=== PATIENT | female | born 1950 | race Caucasian/White ===

== ENCOUNTER → 2020-03-06 | Outpatient (BNVA) | payer OTHER, SELFPAY | PROVIDERS: PCP Emergency Medicine; Referring Provider Emergency Medicine; Visit Provider Nurse Practitioner | DX: K21.9 Gastro-esophageal reflux disease without esophagitis (principal); Z79.899 Other long term (current) drug therapy; Z79.84 Long term (current) use of oral hypoglycemic drugs; Z86.19 Personal history of other infectious and parasitic diseases | CPT/HCPCS: 99213 ==

== ENCOUNTER → 2020-03-15 13:08 | Outpatient (BNVA) | payer OTHER, SELFPAY | PROVIDERS: PCP Emergency Medicine; Visit Provider Surgery | DX: Z85.3 Personal history of malignant neoplasm of breast (principal) | CPT/HCPCS: 99214 ==

== ENCOUNTER 2020-05-22 12:38 | Outpatient (REF) | payer OTHER, SELFPAY ==
--- NOTE | 2020-05-22 12:43 | MM_ITS ---
EXAMINATION: MM SCREENING DIGITAL BREAST TOMOSYNTHESIS, BILATERAL CLINICAL INFORMATION: Screening. Asymptomatic. Prior right lumpectomy for breast cancer 2004. Family history breast cancer, sister. COMPARISON: Mammography: 04/12/2019, 01/26/2018, 01/22/2017, 12/24/2015, 12/20/2014, 11/14/2013, 11/08/2012 TECHNIQUE: Digital breast tomosynthesis is performed in both the craniocaudal and mediolateral oblique views along with computer-aided detection (CAD). Synthesized 2D images are generated from the tomosynthesis. Additional exaggerated right CC view is provided. FINDINGS: There are scattered areas of fibroglandular density (ACR BI-RADS breast composition Category b). Breast parenchymal pattern is similar to prior studies. Right breast post therapy changes are stable. There is mild reduced breast size and minor scarring and smooth skin thickening again seen. Neither breast shows interval mass or architectural abnormality, developing density, or abnormal calcifications. No significant changes. MM/MM tomosynthesis screening BI IMPRESSION: No mammographic evidence of malignancy. Chronic post therapy changes right breast. ASSESSMENT: BI-RADS 2: Benign RECOMMENDATION: Routine annual mammography screening. This patient's information was entered into a reminder system with a target due date for their next mammogram.
== END 2020-05-22 12:39 | disposition home or self-care (01) ==
LOC: HO.MAMMO 12:38
PROVIDERS: Visit Provider Surgery
DX: Z12.31 Encounter for screening mammogram for malignant neoplasm of breast (principal)
CPT/HCPCS: 77063; 77067

== ENCOUNTER → 2020-06-01 13:34 | Outpatient (BNVA) | payer OTHER, SELFPAY | PROVIDERS: PCP Emergency Medicine; Visit Provider Student in an Organized Health Care Education/Training Program | DX: Z13.89 Encounter for screening for other disorder (principal) | CPT/HCPCS: Q3014 ==

== ENCOUNTER 2020-08-30 11:34 | Outpatient (REF) | payer OTHER, SELFPAY ==
[2020-08-30 12:20] LABS: MANUAL DIFF FLAG NO
[2020-08-30 12:22] LABS: Basophils Absolute Auto 0.1 X10*3/uL (0.0-0.2); Basophils Percent Auto 0.7 % (0-2); Eosinophils Absolute Auto 0.2 X10*3/uL (0.0-0.4); Eosinophils Percent Auto 2.3 % (0-4); Hematocrit 35.1 % (37-47); Hemoglobin 11.4 g/dl (12.0-16.0); Imm Gran Abs Auto 0.02 X10*3/uL (0.00-0.03); Imm Gran Pct Auto 0.3 % (0.0-0.4); Lymphocytes Absolute Auto 2.1 X10*3/uL (1.2-4.9); Lymphocytes Percent Auto 28.8 % (20-40); Mean Corpuscular HGB Conc 32.5 g/dl (31.0-35.0); Mean Corpuscular Hemoglobin 29.2 pg (27.0-33.0); Mean Corpuscular Volume 89.8 fL (80-98); Mean Platelet Volume 10.1 fL (9.4-12.3); Monocytes Absolute Auto 0.6 X10*3/uL (0.1-1.2); Monocytes Percent Auto 8.3 % (2-11); Neutrophils Absolute Auto 4.4 X10*3/uL (2.0-8.3); Neutrophils Percent Auto 59.6 % (45-73); Platelet Count 241 X10*3/uL (160-400); Red Blood Count 3.91 X10*6/uL (4.20-5.50); Red Cell Distribution Width 13.9 % (11.0-16.0); White Blood Count 7.3 X10*3/uL (4.8-10.8)
[2020-08-30 12:41] LABS: Alanine Aminotransferase 14 U/L (0-31); Albumin Level 4.3 g/dL (3.5-5.0); Alkaline Phosphatase 104 U/L (39-117); Anion Gap 13 (12-20); Aspartate Amino Transferase 16 U/L (5-31); Bilirubin Total 0.2 mg/dL (0.0-1.0); Blood Urea Nitrogen 22 mg/dL (9-16); C Reactive Protein 0.99 mg/dL (< or = 0.50); Calcium 9.2 mg/dL (8.4-10.2); Carbon Dioxide 23 mmol/L (22-29); Chloride 108 mmol/L (96-108); Estimated Glomerular Filt Rate 43; Glucose Random 233 mg/dL (60-115); Potassium 4.7 mmol/L (3.3-5.1); Sodium 139 mmol/L (135-145); Total Protein 7.3 g/dL (6.5-8.0)
[2020-08-30 13:28] LABS: Erythrocyte Sedimentation Rate 23 MM/HR (0-20)
[2020-08-31 04:46] LABS: HBc Num1 0.05 S/CO (0.00-0.79); Hepatitis B Core Antibody Nonreactive (Nonreactive); ~HepC Num1 0.08 S/CO (0.00-0.79); ~Hepatitis A Antibody IgM Nonreactive (Nonreactive); ~Hepatitis C Antibody Nonreactive (Nonreactive)
[2020-08-31 05:03] LABS: HBS Num1 10.82 mIU/mL (0-7.99); HBsAGNum1 0.47 S/CO (0.00-0.99); Hepatitis B Surface Antigen Negative (Negative)
[2020-08-31 06:00] LABS: HBS Num2 10.08 mIU/mL (0-7.99); HBS Num3 10.86 mIU/mL (0-7.99); ~Hepatitis B Surface Antibody GRAYZONE (Nonreactive)
[2020-09-03 10:52] LABS: TS Negative Control Passed; TS Panel A 0; TS Panel B 0; TS Positive Control Passed; TSpotTB Negative (SeeBelow)
== END 2020-08-30 11:35 | disposition home or self-care (01) ==
LOC: HO.LAB 11:34
PROVIDERS: PCP Emergency Medicine; Visit Provider Student in an Organized Health Care Education/Training Program
DX: M05.9 Rheumatoid arthritis with rheumatoid factor, unspecified (principal); M06.9 Rheumatoid arthritis, unspecified; M65.30 Trigger finger, unspecified finger; J45.909 Unspecified asthma, uncomplicated; Z88.6 Allergy status to analgesic agent; Z91.040 Latex allergy status; Z87.891 Personal history of nicotine dependence; Z85.3 Personal history of malignant neoplasm of breast; Z79.84 Long term (current) use of oral hypoglycemic drugs; Z79.52 Long term (current) use of systemic steroids; Z79.899 Other long term (current) drug therapy
CPT/HCPCS: 36415; 80053; 85025; 85652; 86140; 86481; 86704; 86706; 86709; 86803; 87340; 99212

== ENCOUNTER → 2020-09-12 13:45 | Outpatient (BNVA) | payer OTHER, SELFPAY | PROVIDERS: PCP Family Medicine; Visit Provider Student in an Organized Health Care Education/Training Program ==

== ENCOUNTER 2020-09-18 16:00 | Outpatient (REF) | payer OTHER, SELFPAY ==
--- NOTE | ~2020-09-18 | XR_ITS ---
EXAMINATION: XR HAND, RIGHT XR HAND, LEFT CLINICAL INFORMATION: Bilateral hand pain. COMPARISON: 06/14/2012 TECHNIQUE: 3 views of each hand. FINDINGS: RIGHT HAND: At appears that the trapezium has been resected. No acute fracture or dislocation of the hand or wrist identified. There appear to be erosions involving the base of the 1st metacarpal as well as multiple carpal bones. There appear to be erosions involving the base of the 1st proximal phalanx as well as the head of the 1st proximal phalanx. There appears be erosion with some soft tissue prominence involving the head of the 3rd metacarpal. Small erosion is seen involving the base of the 4th proximal phalanx. There is some degenerative spurring present about the 1st interphalangeal joint as well as the 2nd proximal and distal interphalangeal joints. There appears to be some progression in erosive change compared to previous study. LEFT HAND: No acute fracture or dislocation is identified. There is degenerative change with joint space narrowing and marginal sclerosis and spurring about the 1st carpometacarpal joint. There appear to be a few small erosions involving the base of the 1st metacarpal, heads of the 2nd and 3rd metacarpals. There is some degenerative change with joint space narrowing and marginal spurring involving the 1st interphalangeal joint, the 3rd and 4th proximal interphalangeal joints, and the 1st metacarpophalangeal joint. There has been progression in disease since the previous study of 06/14/2012. XR/XR hand LT min 3V IMPRESSION: 1. 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 2. Resection of the right trapezium.
--- NOTE | ~2020-09-18 | XR_ITS ---
EXAMINATION: XR HAND, RIGHT XR HAND, LEFT CLINICAL INFORMATION: Bilateral hand pain. COMPARISON: 06/14/2012 TECHNIQUE: 3 views of each hand. FINDINGS: RIGHT HAND: At appears that the trapezium has been resected. No acute fracture or dislocation of the hand or wrist identified. There appear to be erosions involving the base of the 1st metacarpal as well as multiple carpal bones. There appear to be erosions involving the base of the 1st proximal phalanx as well as the head of the 1st proximal phalanx. There appears be erosion with some soft tissue prominence involving the head of the 3rd metacarpal. Small erosion is seen involving the base of the 4th proximal phalanx. There is some degenerative spurring present about the 1st interphalangeal joint as well as the 2nd proximal and distal interphalangeal joints. There appears to be some progression in erosive change compared to previous study. LEFT HAND: No acute fracture or dislocation is identified. There is degenerative change with joint space narrowing and marginal sclerosis and spurring about the 1st carpometacarpal joint. There appear to be a few small erosions involving the base of the 1st metacarpal, heads of the 2nd and 3rd metacarpals. There is some degenerative change with joint space narrowing and marginal spurring involving the 1st interphalangeal joint, the 3rd and 4th proximal interphalangeal joints, and the 1st metacarpophalangeal joint. There has been progression in disease since the previous study of 06/14/2012. XR/XR hand RT min 3V IMPRESSION: 1. 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 2. Resection of the right trapezium.
== END 2020-09-18 16:01 | disposition home or self-care (01) ==
LOC: HO.HOSX 16:00
PROVIDERS: Visit Provider Orthopaedic Surgery
DX: M79.641 Pain in right hand (principal); M79.642 Pain in left hand
CPT/HCPCS: 73130

== ENCOUNTER → 2020-09-19 12:51 | Outpatient (BNVA) | payer OTHER, SELFPAY | PROVIDERS: Visit Provider Orthopaedic Surgery | DX: M65.342 Trigger finger, left ring finger (principal); M65.341 Trigger finger, right ring finger; M65.331 Trigger finger, right middle finger; M06.9 Rheumatoid arthritis, unspecified | CPT/HCPCS: 99202 ==

== ENCOUNTER 2020-10-11 11:26 | Day surgery (SDC) | payer OTHER, SELFPAY ==
[2020-10-10 14:27] VITALS: BMI 34.7
[2020-10-11 12:02] VITALS: BP 152/86; PULSE 83; RESP 18; TEMP 36.4; O2SAT 96
[2020-10-11 12:09] LABS: Glucose, Whole Blood 170 mg/dL (60-115)
[2020-10-11] MEDS: Lidocaine HCl 1%/Epi 1:100,000 20 ML VIAL 9 ML INFILTRATI (12:10)
--- NOTE | 2020-10-11 13:09 | MHC.SHP ---
Pre-Procedural Eval Section B Chief Complaint: trigger finger Allergies: Allergies Allergy/AdvReac Type Severity Reaction Status Date / Time aspirin Allergy Unknown abdominal Verified 09/19/20 13:15 pain latex [LATEX] Allergy Unknown BLISTERS Verified 09/19/20 13:15 Plan I have reviewed the history and physical and performed a pertinent physical examination on my patient. No changes have occurred unless specified.
--- NOTE | 2020-10-11 13:10 | P.OP_ITS ---
Operative Note Operative Note Date of Service: 10/11/20 Narrative: Operative Note Preop diagnosis: 1. Left ring finger Trigger finger Postop diagnosis: 1. Left ring finger Trigger finger Procedure: 1. Left ring finger A1 denisse release Surgeon: Yasmin Cary MD Anesthesia: local block using 1% lidocaine with epinephrine Findings: No locking or catching after A1 denisse release EBL: Less than 5 mL Tourniquet time: None Specimens: None Complications: None Disposition: Brought to recovery room in stable condition Plan: Follow-up for 7-10 days for wound check and suture removal Indications: The patient is 70 years old, with a left ring finger trigger finger that has been unresponsive to nonoperative management. The risks and benefits of operative treatment including but not limited to risk of damage to blood vessels, nerves, tendons, infection, persistent pain, persistent symptoms, recurrence or possible need for additional surgery were discussed with the patient and the patient wishes to proceed with surgery. Procedure: Once consent was obtained a local block was performed in the preop area using a combination of 1% lidocaine with epinephrine. The patient was then brought back to the operating suite and placed on the operative table in supine position. A tourniquet was applied to the proximal aspect of the left upper extremity and the limb was prepped and draped in a standard surgical fashion. Once assured that we had a good block, a 1.5 cm oblique incision was made centered over the A1 denisse of the left ring finger . The incision was made through the skin to the subcutaneous tissues using a #15 blade. Careful d issection was made down to the level of the A1 denisse using tenotomy scissors, with care being taken to protect the nearby neurovascular structures. A longitudinal incision was made in the A1 denisse 1st using a #15 blade, then using tenotomy scissors under direct visualization. The A1 denisse was noted to be thickened. Following our A1 denisse release, we no longer saw any locking or catching of the digit with flexion and extension. Once satisfied with our A1 denisse release the wound was copiously irrigated with normal saline and hemostasis was obtained with a brief period of local pressure. The skin edges were reapproximated with some 5.0 nylon suture material and a sterile dressing was applied. The patient appears to have tolerated the procedure well and with no complications. All digits were well vascularized at the conclusion of the case.
[2020-10-11 14:35] VITALS: BP 147/64; PULSE 64; RESP 16; TEMP 36.4; O2SAT 95
== END 2020-10-11 15:15 | disposition home or self-care (01) ==
LOC: HO.SSS 11:26
PROVIDERS: PCP Emergency Medicine; Visit Provider Orthopaedic Surgery
PROC: (CPT 26055; principal; 2020-10-11 12:30)
DX: M65.342 Trigger finger, left ring finger (principal); J45.909 Unspecified asthma, uncomplicated; M05.9 Rheumatoid arthritis with rheumatoid factor, unspecified; M10.9 Gout, unspecified; E11.9 Type 2 diabetes mellitus without complications; Z79.84 Long term (current) use of oral hypoglycemic drugs; Z79.899 Other long term (current) drug therapy; Z88.8 Allergy status to other drugs, medicaments and biological substances; Z91.040 Latex allergy status; Z87.891 Personal history of nicotine dependence
CPT/HCPCS: 26055; 82947

== ENCOUNTER → 2020-10-23 13:47 | Outpatient (BNVA) | payer OTHER, SELFPAY | PROVIDERS: Visit Provider Orthopaedic Surgery | DX: M65.331 Trigger finger, right middle finger (principal); M65.341 Trigger finger, right ring finger; M65.342 Trigger finger, left ring finger; M05.9 Rheumatoid arthritis with rheumatoid factor, unspecified; M10.9 Gout, unspecified | CPT/HCPCS: 99212 ==

== ENCOUNTER → 2020-11-21 11:55 | Outpatient (BNVA) | payer OTHER, SELFPAY | PROVIDERS: Visit Provider Orthopaedic Surgery | DX: M65.341 Trigger finger, right ring finger (principal); M65.342 Trigger finger, left ring finger; M65.331 Trigger finger, right middle finger | CPT/HCPCS: 99212 ==

== ENCOUNTER 2020-11-27 06:06 | Day surgery (SDC) | payer OTHER, SELFPAY ==
[2020-11-19 14:49] VITALS: BMI 34.2
--- NOTE | 2020-11-23 08:38 | HO.ANESPROP2 ---
Documented by User: Jessica Llamasney 11/23/20 08:40 HPI - Anesthesia Eval Consult details Narrative: 70yo F for Right Middle and Ring Finger A1 Gregg Trigger Release PMFSH Active Problems Active Problems: All Active Problems (Updated 11/19/20 @ 14:53 by Sharlene Romero) GERD (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 reflux disease) (Acute) History of Helicobacter pylori infection (Acute) COPD (chronic obstructive pulmonary disease) (Acute) Osteopenia (Acute) HTN (hypertension), benign (Acute) High cholesterol (Acute) History of breast cancer (Acute) Rheumatoid arthritis (Acute) NIDDY (non-insulin dependent diabetes mellitus in young) (Acute) Smoker (Acute) History of snoring (Acute) Gout (Acute) Trigger finger of both hands (Acute) Trigger finger, left ring finger (Acute) Trigger finger, right ring finger (Acute) Trigger finger, right middle finger (Acute) 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) Seropositive rheumatoid arthritis (Acute) Past Medical History Medical History Anemia Asthma COPD (chronic obstructive pulmonary disease) COVID-19 vaccine administered Depression Diabetes Elevated cholesterol GERD (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 reflux disease) History of right breast cancer HTN (hypertension) Hx of cardiac murmur Hx of gout Hx of osteopenia 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 Lymphedema Seropositive rheumatoid arthritis Family History Family History Father Throat cancer Mother Asthma Osteoarthritis Sister Breast cancer Surgical History Surgical History H/O colonoscopy H/O cystoscopy H/O local excision of skin lesion History of bilateral carpal tunnel release History of esophagogastroduodenoscopy (EGD) Hx of hand surgery Hx of thumb surgery S/P lumpectomy, right breast Social History Social History Patient Tobacco Use Status: Former Tobacco user Quit Date: 2014 Tobacco use type: Cigarette Years Smoked: quit in 2014 Use of substances other than those prescribed or required for medical reasons: No Have you been hit, kicked, punched, or otherwise hurt by someone within the past year? 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 Meds Allergies Allergy/AdvReac Type Severity Reaction Status Date / Time latex [LATEX] Allergy Intermediate BLISTERS Verified 11/21/20 12:04 aspirin AdvReac Intermediate abdominal Verified 11/21/20 12:04 pain Home Medications Medication Instructions Recorded Confirmed Last Taken Type acetaminophen 650 mg 650 mg PO Q8H 02/25/20 11/19/20 Unknown History tablet,extended release albuterol sulfate 90 mcg/actuation 2 puff INHALATION Q4-6H PRN 02/25/20 11/19/20 Unknown History aerosol inhaler budesonide-formoterol HFA 160 2 puff INHALATION BID 02/25/20 11/19/20 Unknown History mcg-4.5 mcg/actuation aerosol inhaler citalopram 40 mg tablet 20 mg PO DAILY 02/25/20 11/19/20 Unknown History dexlansoprazole 60 mg 60 mg PO DAILY 02/25/20 11/19/20 Unknown History capsule,biphase delayed release fluticasone propionate 50 1 spray INTRANASAL BID 02/25/20 11/19/20 Unknown History mcg/actuation nasal spray,suspension hydroxychloroquine 200 mg tablet 200 mg PO BID 02/25/20 11/19/20 Unknown History ibuprofen 200 mg tablet 400 mg PO Q8H 02/25/20 11/19/20 Unknown History ipratropium 0.5 mg-albuterol 3 mg 3 ml INHALATION QID PRN 02/25/20 11/19/20 Unknown History (2.5 mg base)/3 mL nebulization soln leflunomide 10 mg tablet 10 mg PO DAILY 02/25/20 11/19/20 Unknown History lisinopril 20 1 tab PO DAILY 02/25/20 11/19/20 Unknown History mg-hydrochlorothiazide 12.5 mg tablet loratadine 10 mg tablet 10 mg PO DAILY 02/25/20 11/19/20 Unknown History metformin 500 mg tablet 500 mg PO DAILY 02/25/20 11/19/20 Unknown History montelukast 10 mg tablet 10 mg PO BEDTIME 02/25/20 11/19/20 Unknown History nabumetone 750 mg tablet 750 mg PO BID 02/25/20 11/19/20 Unknown History simvastatin 20 mg tablet 20 mg PO DAILY 02/25/20 11/19/20 Unknown History tiotropium bromide 18 mcg capsule 1 cap INHALATION DAILY 02/25/20 11/19/20 Unknown History with inhalation device Exam Exam Date and Time: November 23, 2020 0838 Height,Weight and Vital Signs: Height 5 ft 5 in Weight 93.349 kg Pertinent Lab Results Pertinent Lab Results: Laboratory Tests 08/30/20 08/30/20 12:05 12:05 WBC 7.3 Hgb 11.4 L Hct 35.1 L Plt Count 241 Sodium 139 Potassium 4.7 Chloride 108 Carbon Dioxide 23 BUN 22 H Creatinine 1.23 Assessment and Plan Assessment Anesthesia Assessment: Chart Reviewed Documented by User: Edy Young MD 11/27/20 07:24 PMF Past Medical History Medical History Anemia Asthma COPD (chronic obstructive pulmonary disease) COVID-19 vaccine administered Depression Diabetes Elevated cholesterol GERD (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 reflux disease) History of right breast cancer HTN (hypertension) Hx of cardiac murmur Hx of gout Hx of osteopenia 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 Lymphedema Seropositive rheumatoid arthritis Family History Family History Father Throat cancer Mother Asthma Osteoarthritis Sister Breast cancer Surgical History Surgical History H/O colonoscopy H/O cystoscopy H/O local excision of skin lesion History of bilateral carpal tunnel release History of esophagogastroduodenoscopy (EGD) Hx of hand surgery Hx of thumb surgery S/P lumpectomy, right breast Social History Social History Patient Tobacco Use Status: Former Tobacco user Quit Date: 2014 Tobacco use type: Cigarette Years Smoked: quit in 2014 Use of substances other than those prescribed or required for medical reasons: No Have you been hit, kicked, punched, or otherwise hurt by someone within the past year? 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 Meds Allergies Allergy/AdvReac Type Severity Reaction Status Date / Time latex [LATEX] Allergy Intermediate BLISTERS Verified 11/21/20 12:04 aspirin AdvReac Intermediate abdominal Verified 11/21/20 12:04 pain Home Medications Medication Instructions Recorded Confirmed Last Taken Type acetaminophen 650 mg 650 mg PO Q8H 02/25/20 11/19/20 Unknown History tablet,extended release albuterol sulfate 90 mcg/actuation 2 puff INHALATION Q4-6H PRN 02/25/20 11/19/20 Unknown History aerosol inhaler budesonide-formoterol HFA 160 2 puff INHALATION BID 02/25/20 11/19/20 Unknown History mcg-4.5 mcg/actuation aerosol inhaler citalopram 40 mg tablet 20 mg PO DAILY 02/25/20 11/19/20 Unknown History dexlansoprazole 60 mg 60 mg PO DAILY 02/25/20 11/19/20 Unknown History capsule,biphase delayed release fluticasone propionate 50 1 spray INTRANASAL BID 02/25/20 11/19/20 Unknown History mcg/actuation nasal spray,suspension hydroxychloroquine 200 mg tablet 200 mg PO BID 02/25/20 11/19/20 Unknown History ibuprofen 200 mg tablet 400 mg PO Q8H 02/25/20 11/19/20 Unknown History ipratropium 0.5 mg-albuterol 3 mg 3 ml INHALATION QID PRN 02/25/20 11/19/20 Unknown History (2.5 mg base)/3 mL nebulization soln leflunomide 10 mg tablet 10 mg PO DAILY 02/25/20 11/19/20 Unknown History lisinopril 20 1 tab PO DAILY 02/25/20 11/19/20 Unknown History mg-hydrochlorothiazide 12.5 mg tablet loratadine 10 mg tablet 10 mg PO DAILY 02/25/20 11/19/20 Unknown History metformin 500 mg tablet 500 mg PO DAILY 02/25/20 11/19/20 Unknown History montelukast 10 mg tablet 10 mg PO BEDTIME 02/25/20 11/19/20 Unknown History nabumetone 750 mg tablet 750 mg PO BID 02/25/20 11/19/20 Unknown History simvastatin 20 mg tablet 20 mg PO DAILY 02/25/20 11/19/20 Unknown History tiotropium bromide 18 mcg capsule 1 cap INHALATION DAILY 02/25/20 11/19/20 Unknown History with inhalation device Assessment and Plan Assessment Anesthesia Assessment: Anesthesia Plan Discussed and Chart Reviewed Final Anesthetic Review ASA Class: III Final Preanesthetic Review: No Changes in Pt Med Stat, Meds/Allgs Chart Reviewed, Consent Obtained/Reviewed and Anes Risks/Benef Reviewed Patient Risk: Intermediate Procedure Risk: Low Anesthetic Plan Anesthetic Plan: MAC: Disposition: Standard PACU
[2020-11-27 06:13] VITALS: BP 149/69; PULSE 74; RESP 18; TEMP 36.1; O2SAT 96
[2020-11-27 06:27] LABS: Glucose, Whole Blood 153 mg/dL (60-115)
[2020-11-27] MEDS: Lactated Ringers 1,000 ML 100 ML IVCONT (06:40)
--- NOTE | 2020-11-27 08:02 | MHC.SHP ---
Pre-Procedural Eval Section A Date of Service: 11/27/20 Section B Chief Complaint: trigger finger Allergies: Allergies Allergy/AdvReac Type Severity Reaction Status Date / Time latex [LATEX] Allergy Intermediate BLISTERS Verified 11/21/20 12:04 aspirin AdvReac Intermediate abdominal Verified 11/21/20 12:04 pain Plan I have reviewed the history and physical and performed a pertinent physical examination on my patient. No changes have occurred unless specified.
--- NOTE | 2020-11-27 08:02 | W.PM.OPN ---
Operative Note Operative Note Date of Service: 11/27/20 Narrative: Operative Note Preop diagnosis: 1. right middle finger Trigger finger 2. Right ring finger trigger finger Postop diagnosis: same Procedure: 1. right middle finger A1 denisse release 2. Right ring finger A1 denisse release Surgeon: Yasmin Cary MD Anesthesia: local plus MAC Findings: No locking or catching after A1 denisse release EBL: Less than 5 mL Tourniquet time: 20 minutes Specimens: None Complications: None Disposition: Brought to recovery room in stable condition Plan: Follow-up for 7-10 days for wound check and suture removal Indications: The patient is 70 years old, with right middle finger and right ring finger trigger fingers that have been unresponsive to nonoperative management. The risks and benefits of operative treatment including but not limited to risk of damage to blood vessels, nerves, tendons, infection, persistent pain, persistent symptoms, recurrence or possible need for additional surgery were discussed with the patient and the patient wishes to proceed with surgery. Procedure: Once consent was obtained the patient was then brought back to the operating suite and placed on the operative table in supine position. A tourniquet was applied and thelimb was prepped and draped in a standard surgical fashion. sedation was performed by the anesthesia team and a local block was performed using some 0.25% plain Marcaine.. the limb was elevated and exsanguinated with an Esmarch bandage the tourniquet inflated to 250 mm of mercury for a total tourniquet time of 20 minutes. Once assured that we had a good block, a 1.5 cm oblique incision was made centered over the A1 denisse of the right ring finger . The incision was made through the skin to the subcutaneous tissues using a #15 blade. Careful dissection was made down to the level of the A1 denisse using tenotomy scissors, with care being taken to protect the nearby neurovascular structures. A longitudinal incision was made in the A1 denisse 1st using a #15 blade, then using tenotomy scissors under direct visualization. The A1 denisse was noted to be thickened. Following our A1 denisse release, we no longer saw any locking or catching of the digit with flexion and extension. Once assured that we had a good block, a 1.5 cm oblique incision was made centered over the A1 denisse of the right middle finger . The incision was made through the skin to the subcutaneous tissues using a #15 blade. Careful dissection was made down to the level of the A1 denisse using tenotomy scissors, with care being taken to protect the nearby neurovascular structures. A longitudinal incision was made in the A1 denisse 1st using a #15 blade, then using tenotomy scissors under direct visualization. The A1 denisse was noted to be thickened. Following our A1 denisse release, we no longer saw any locking or catching of the digit with flexion and extension. Once satisfied with our A1 denisse release the wound was copiously irrigated with normal saline and hemostasis was obtained with a brief period of local pressure. The skin edges were reapproximated with some 5.0 nylon suture material and a sterile dressing was applied. The patient appears to have tolerated the procedure well and with no complications. All digits were well vascularized at the conclusion of the case.
[2020-11-27 08:50] VITALS: BP 124/63; PULSE 66; RESP 16; TEMP 36.4; O2SAT 94
[2020-11-27 09:05] VITALS: BP 98/51; PULSE 60; RESP 18; O2SAT 95
[2020-11-27 09:20] VITALS: BP 102/51; PULSE 61; RESP 16; O2SAT 96
== END 2020-11-27 10:53 | disposition home or self-care (01) ==
PROVIDERS: PCP Emergency Medicine; Visit Provider Orthopaedic Surgery
PROC: (CPT 26055; principal; 2020-11-27 07:30)
DX: M65.331 Trigger finger, right middle finger (principal); M65.341 Trigger finger, right ring finger; J44.9 Chronic obstructive pulmonary disease, unspecified; M05.9 Rheumatoid arthritis with rheumatoid factor, unspecified; D50.9 Iron deficiency anemia, unspecified; I10 Essential (primary) hypertension; E11.9 Type 2 diabetes mellitus without complications; I89.0 Lymphedema, not elsewhere classified; Z79.51 Long term (current) use of inhaled steroids; Z79.52 Long term (current) use of systemic steroids; Z79.84 Long term (current) use of oral hypoglycemic drugs; Z79.899 Other long term (current) drug therapy; Z87.891 Personal history of nicotine dependence; Z91.040 Latex allergy status; Z88.8 Allergy status to other drugs, medicaments and biological substances
CPT/HCPCS: 26055 ×2; 82947; J1100; J1170; J1885; J2250; J2370; J2405; J3010

== ENCOUNTER → 2020-12-10 12:26 | Outpatient (BNVA) | payer OTHER, SELFPAY | PROVIDERS: Visit Provider Physician Assistant | DX: M65.341 Trigger finger, right ring finger (principal); M65.331 Trigger finger, right middle finger | CPT/HCPCS: 99212 ==

== ENCOUNTER → 2020-12-24 13:22 | Outpatient (BNVA) | payer OTHER, SELFPAY | PROVIDERS: Visit Provider Physician Assistant | DX: Z09 Encounter for follow-up examination after completed treatment for conditions other than malignant neoplasm (principal); Z87.39 Personal history of other diseases of the musculoskeletal system and connective tissue; M06.9 Rheumatoid arthritis, unspecified | CPT/HCPCS: 99212 ==

== ENCOUNTER → 2021-01-18 15:42 | Outpatient (BNVA) | payer OTHER, SELFPAY | PROVIDERS: Visit Provider Nurse Practitioner | DX: Z13.89 Encounter for screening for other disorder (principal) | CPT/HCPCS: Q3014 ==

== ENCOUNTER 2021-02-22 12:23 | Outpatient (REF) | payer MEDICARE, SELFPAY ==
[2021-02-22 12:40] LABS: MANUAL DIFF FLAG NO
[2021-02-22 13:14] LABS: Basophils Absolute Auto 0.1 X10*3/uL (0.0-0.2); Basophils Percent Auto 0.5 % (0-2); Eosinophils Absolute Auto 0.2 X10*3/uL (0.0-0.4); Eosinophils Percent Auto 2.6 % (0-4); Hematocrit 35.2 % (37-47); Hemoglobin 11.6 g/dl (12.0-16.0); Imm Gran Abs Auto 0.03 X10*3/uL (0.00-0.03); Imm Gran Pct Auto 0.3 % (0.0-0.4); Lymphocytes Absolute Auto 2.8 X10*3/uL (1.2-4.9); Lymphocytes Percent Auto 30.3 % (20-40); Mean Corpuscular Hemoglobin 29.8 pg (27.0-33.0); Mean Corpuscular Volume 90.5 fL (80-98); Monocytes Absolute Auto 0.7 X10*3/uL (0.1-1.2); Neutrophils Absolute Auto 5.5 X10*3/uL (2.0-8.3); Neutrophils Percent Auto 59.3 % (45-73); Platelet Count 260 X10*3/uL (160-400); Red Blood Count 3.89 X10*6/uL (4.20-5.50); Red Cell Distribution Width 13.7 % (11.0-16.0); White Blood Count 9.3 X10*3/uL (4.8-10.8)
[2021-02-22 13:46] LABS: Alanine Aminotransferase 13 U/L (0-31); Albumin Level 4.2 g/dL (3.5-5.0); Alkaline Phosphatase 93 U/L (39-117); Anion Gap 12 (12-20); Aspartate Amino Transferase 13 U/L (5-31); Bilirubin Total 0.4 mg/dL (0.0-1.0); Blood Urea Nitrogen 22 mg/dL (9-16); Calcium 9.4 mg/dL (8.4-10.2); Carbon Dioxide 23 mmol/L (22-29); Chloride 111 mmol/L (96-108); Estimated Glomerular Filt Rate 44; Glucose Random 191 mg/dL (60-115); Sodium 141 mmol/L (135-145); Total Protein 7.2 g/dL (6.5-8.0)
[2021-02-22 13:56] LABS: Erythrocyte Sedimentation Rate 18 MM/HR (0-20)
== END 2021-02-22 12:24 | disposition home or self-care (01) ==
LOC: HO.LAB 12:23
PROVIDERS: Visit Provider Nurse Practitioner Family
DX: M06.9 Rheumatoid arthritis, unspecified (principal)
CPT/HCPCS: 36415; 80053; 85025; 85652; 86140

== ENCOUNTER 2021-03-01 12:20 | Outpatient (REF) | payer MEDICARE, SELFPAY ==
[2021-03-01 13:21] LABS: MANUAL DIFF FLAG NO
[2021-03-01 13:23] LABS: Basophils Absolute Auto 0.1 X10*3/uL (0.0-0.2); Basophils Percent Auto 0.6 % (0-2); Eosinophils Absolute Auto 0.2 X10*3/uL (0.0-0.4); Eosinophils Percent Auto 1.9 % (0-4); Hematocrit 36.1 % (37-47); Imm Gran Abs Auto 0.03 X10*3/uL (0.00-0.03); Imm Gran Pct Auto 0.4 % (0.0-0.4); Lymphocytes Absolute Auto 2.9 X10*3/uL (1.2-4.9); Lymphocytes Percent Auto 34.2 % (20-40); Mean Corpuscular HGB Conc 33.2 g/dl (31.0-35.0); Mean Corpuscular Hemoglobin 29.9 pg (27.0-33.0); Mean Corpuscular Volume 89.8 fL (80-98); Mean Platelet Volume 9.5 fL (9.4-12.3); Monocytes Absolute Auto 0.6 X10*3/uL (0.1-1.2); Monocytes Percent Auto 7.1 % (2-11); Neutrophils Absolute Auto 4.8 X10*3/uL (2.0-8.3); Neutrophils Percent Auto 55.8 % (45-73); Platelet Count 257 X10*3/uL (160-400); Red Blood Count 4.02 X10*6/uL (4.20-5.50); Red Cell Distribution Width 13.7 % (11.0-16.0); White Blood Count 8.6 X10*3/uL (4.8-10.8)
[2021-03-01 13:54] LABS: Alanine Aminotransferase 13 U/L (0-31); Albumin Level 4.4 g/dL (3.5-5.0); Alkaline Phosphatase 93 U/L (39-117); Anion Gap 14 (12-20); Aspartate Amino Transferase 14 U/L (5-31); Bilirubin Total 0.3 mg/dL (0.0-1.0); Blood Urea Nitrogen 27 mg/dL (9-16); C Reactive Protein 0.84 mg/dL (< or = 0.50); Calcium 9.5 mg/dL (8.4-10.2); Carbon Dioxide 22 mmol/L (22-29); Chloride 110 mmol/L (96-108); Estimated Glomerular Filt Rate 43; Glucose Random 118 mg/dL (60-115); Potassium 5.3 mmol/L (3.3-5.1); Sodium 141 mmol/L (135-145); Total Protein 7.4 g/dL (6.5-8.0)
[2021-03-01 13:58] LABS: Erythrocyte Sedimentation Rate 25 MM/HR (0-20)
== END 2021-03-01 12:21 | disposition home or self-care (01) ==
LOC: HO.LAB 12:20
PROVIDERS: PCP Emergency Medicine; Visit Provider Nurse Practitioner Family
DX: M06.9 Rheumatoid arthritis, unspecified (principal); Z87.891 Personal history of nicotine dependence; Z79.899 Other long term (current) drug therapy; Z79.52 Long term (current) use of systemic steroids
CPT/HCPCS: 36415; 80053; 85025; 85652; 86140; 99212

== ENCOUNTER → 2021-04-04 13:48 | Outpatient (BNVA) | payer MEDICARE, SELFPAY | PROVIDERS: PCP Emergency Medicine; Referring Provider Emergency Medicine; Visit Provider Surgery | DX: C50.911 Malignant neoplasm of unspecified site of right female breast (principal) | CPT/HCPCS: 99212 ==

== ENCOUNTER 2021-05-29 13:21 | Outpatient (REF) | payer MEDICARE, SELFPAY ==
--- NOTE | ~2021-05-29 | MM_ITS ---
EXAMINATION: MM SCREENING DIGITAL BREAST TOMOSYNTHESIS, BILATERAL CLINICAL INFORMATION: Remote right lumpectomy for breast cancer, 2004. Family history breast cancer, sister. Due for yearly. COMPARISON: Mammography: 05/22/2020, 04/12/2019, 01/26/2018, 01/22/2017 TECHNIQUE: Digital breast tomosynthesis is performed in both the craniocaudal and mediolateral oblique views along with computer-aided detection (CAD). Synthesized 2D images are generated from the tomosynthesis. Additional right MLO view is provided. FINDINGS: There are scattered areas of fibroglandular density (ACR BI-RADS breast composition Category b). Post therapy changes right breast are similar to prior studies. There is mild reduced breast size and smooth skin thickening and minor scarring. Neither breast shows interval mass or architectural abnormality or abnormal calcifications. No significant changes. The axilla are unremarkable. MM/MM tomosynthesis screening BI IMPRESSION: No mammographic evidence of malignancy. ASSESSMENT: BI-RADS 2: Benign RECOMMENDATION: Routine annual mammography screening. This patient's information was entered into a reminder system with a target due date for their next mammogram.
== END 2021-05-29 13:22 | disposition home or self-care (01) ==
LOC: HO.MAMMO 13:21
PROVIDERS: Visit Provider Surgery
DX: Z12.31 Encounter for screening mammogram for malignant neoplasm of breast (principal)
CPT/HCPCS: 77063; 77067

== ENCOUNTER 2021-05-30 12:53 | Outpatient (REF) | payer MEDICARE, SELFPAY ==
[2021-05-30 14:02] LABS: MANUAL DIFF FLAG NO
[2021-05-30 14:48] LABS: Basophils Percent Auto 0.5 % (0-2); Eosinophils Absolute Auto 0.2 X10*3/uL (0.0-0.4); Eosinophils Percent Auto 1.9 % (0-4); Hematocrit 36.3 % (37.0-47.0); Hemoglobin 11.9 g/dl (12.0-16.0); Imm Gran Abs Auto 0.02 X10*3/uL (0.00-0.03); Imm Gran Pct Auto 0.2 % (0.0-0.4); Lymphocytes Absolute Auto 2.8 X10*3/uL (1.2-4.9); Lymphocytes Percent Auto 33.3 % (20-40); Mean Corpuscular HGB Conc 32.8 g/dl (31.0-35.0); Mean Corpuscular Hemoglobin 29.6 pg (27.0-33.0); Mean Corpuscular Volume 90.3 fL (80.0-98.0); Monocytes Absolute Auto 0.5 X10*3/uL (0.1-1.2); Monocytes Percent Auto 6.3 % (2-11); Neutrophils Absolute Auto 4.8 x10*3/uL (2.0-8.3); Neutrophils Percent Auto 57.8 % (45-73); Platelet Count 301 X10*3/uL (160-400); Red Blood Count 4.02 X10*6/uL (4.20-5.50); Red Cell Distribution Width 13.2 % (11.0-16.0); White Blood Count 8.3 X10*3/uL (4.8-10.8)
[2021-05-30 15:27] LABS: Alanine Aminotransferase 14 U/L (0-31); Albumin Level 4.4 g/dL (3.5-5.0); Alkaline Phosphatase 94 U/L (39-117); Anion Gap 12 (12-20); Aspartate Amino Transferase 15 U/L (5-31); Bilirubin Total 0.3 mg/dL (0.0-1.0); Blood Urea Nitrogen 25 mg/dL (9-16); C Reactive Protein 0.96 mg/dL (< or = 0.50); Calcium 9.8 mg/dL (8.4-10.2); Carbon Dioxide 21 mmol/L (22-29); Chloride 112 mmol/L (96-108); Estimated Glomerular Filt Rate 48; Glucose Random 165 mg/dL (60-115); Potassium 5.4 mmol/L (3.3-5.1); Sodium 140 mmol/L (135-145); Total Protein 7.6 g/dL (6.5-8.0)
[2021-05-30 15:50] LABS: Erythrocyte Sedimentation Rate 23 MM/HR (0-20)
[2021-06-04 15:51] LABS: Vitamin D 25-OH, D2 <4 ng/mL; Vitamin D 25-OH, D3 15 ng/mL; Vitamin D 25-OH, Total 15 ng/mL (30-100)
== END 2021-05-30 12:54 | disposition home or self-care (01) ==
LOC: HO.LAB 12:53
PROVIDERS: Student in an Organized Health Care Education/Training Program; PCP Emergency Medicine; Visit Provider Nurse Practitioner Family
DX: M05.9 Rheumatoid arthritis with rheumatoid factor, unspecified (principal); M65.30 Trigger finger, unspecified finger; Z79.899 Other long term (current) drug therapy; Z87.891 Personal history of nicotine dependence; Z79.52 Long term (current) use of systemic steroids
CPT/HCPCS: 36415; 80053; 82306; 85025; 85652; 86140; 99212

== ENCOUNTER 2021-06-07 14:46 | Outpatient (REF) | payer MEDICARE, SELFPAY ==
[2021-06-07 15:08] LABS: MANUAL DIFF FLAG NO
[2021-06-07 15:22] LABS: Basophils Absolute Auto 0.1 X10*3/uL (0.0-0.2); Basophils Percent Auto 0.5 % (0-2); Eosinophils Absolute Auto 0.2 X10*3/uL (0.0-0.4); Eosinophils Percent Auto 1.5 % (0-4); Hematocrit 36.1 % (37.0-47.0); Hemoglobin 11.9 g/dl (12.0-16.0); Imm Gran Abs Auto 0.03 X10*3/uL (0.00-0.03); Imm Gran Pct Auto 0.3 % (0.0-0.4); Lymphocytes Absolute Auto 2.7 X10*3/uL (1.2-4.9); Lymphocytes Percent Auto 27.3 % (20-40); Mean Corpuscular Hemoglobin 29.7 pg (27.0-33.0); Mean Platelet Volume 9.8 fL (9.4-12.3); Monocytes Absolute Auto 0.6 X10*3/uL (0.1-1.2); Monocytes Percent Auto 6.3 % (2-11); Neutrophils Absolute Auto 6.2 x10*3/uL (2.0-8.3); Neutrophils Percent Auto 64.1 % (45-73); Platelet Count 258 X10*3/uL (160-400); Red Blood Count 4.01 X10*6/uL (4.20-5.50); Red Cell Distribution Width 13.2 % (11.0-16.0); White Blood Count 9.7 X10*3/uL (4.8-10.8)
[2021-06-07 15:52] LABS: Alanine Aminotransferase 13 U/L (0-31); Albumin Level 4.1 g/dL (3.5-5.0); Alkaline Phosphatase 96 U/L (39-117); Anion Gap 14 (12-20); Aspartate Amino Transferase 13 U/L (5-31); Bilirubin Total 0.3 mg/dL (0.0-1.0); Blood Urea Nitrogen 24 mg/dL (9-16); C Reactive Protein 1.24 mg/dL (< or = 0.50); Calcium 9.4 mg/dL (8.4-10.2); Carbon Dioxide 20 mmol/L (22-29); Chloride 111 mmol/L (96-108); Estimated Glomerular Filt Rate 48; Glucose Random 218 mg/dL (60-115); Potassium 4.8 mmol/L (3.3-5.1); Sodium 140 mmol/L (135-145); Total Protein 7.4 g/dL (6.5-8.0)
[2021-06-07 16:05] LABS: Erythrocyte Sedimentation Rate 23 MM/HR (0-20)
== END 2021-06-07 14:47 | disposition home or self-care (01) ==
LOC: HO.LAB 14:46
PROVIDERS: Visit Provider Nurse Practitioner Family
DX: M06.9 Rheumatoid arthritis, unspecified (principal)
CPT/HCPCS: 36415; 80053; 85025; 85652; 86140

== ENCOUNTER 2021-08-09 14:11 | Outpatient (REF) | payer MEDICARE, SELFPAY ==
[2021-08-09 15:33] LABS: MANUAL DIFF FLAG NO
[2021-08-09 15:40] LABS: Basophils Percent Auto 0.4 % (0-2); Eosinophils Absolute Auto 0.2 X10*3/uL (0.0-0.4); Eosinophils Percent Auto 1.4 % (0-4); Hematocrit 36.9 % (37.0-47.0); Hemoglobin 12.2 g/dl (12.0-16.0); Imm Gran Abs Auto 0.03 X10*3/uL (0.00-0.03); Imm Gran Pct Auto 0.3 % (0.0-0.4); Lymphocytes Absolute Auto 3.7 X10*3/uL (1.2-4.9); Lymphocytes Percent Auto 35.3 % (20-40); Mean Corpuscular HGB Conc 33.1 g/dl (31.0-35.0); Mean Corpuscular Hemoglobin 29.7 pg (27.0-33.0); Mean Corpuscular Volume 89.8 fL (80.0-98.0); Mean Platelet Volume 9.5 fL (9.4-12.3); Monocytes Absolute Auto 0.6 X10*3/uL (0.1-1.2); Monocytes Percent Auto 5.2 % (2-11); Neutrophils Absolute Auto 6.1 x10*3/uL (2.0-8.3); Neutrophils Percent Auto 57.4 % (45-73); Platelet Count 307 X10*3/uL (160-400); Red Blood Count 4.11 X10*6/uL (4.20-5.50); Red Cell Distribution Width 13.5 % (11.0-16.0); White Blood Count 10.6 X10*3/uL (4.8-10.8)
[2021-08-09 16:02] LABS: Alanine Aminotransferase 15 U/L (0-31); Albumin Level 4.4 g/dL (3.5-5.0); Alkaline Phosphatase 93 U/L (39-117); Anion Gap 14 (12-20); Aspartate Amino Transferase 15 U/L (5-31); Bilirubin Total 0.4 mg/dL (0.0-1.0); Blood Urea Nitrogen 31 mg/dL (9-16); C Reactive Protein 1.04 mg/dL (< or = 0.50); Calcium 10.1 mg/dL (8.4-10.2); Carbon Dioxide 21 mmol/L (22-29); Chloride 109 mmol/L (96-108); Estimated Glomerular Filt Rate 47; Glucose Random 124 mg/dL (60-115); Potassium 5.1 mmol/L (3.3-5.1); Sodium 139 mmol/L (135-145); Total Protein 7.6 g/dL (6.5-8.0)
[2021-08-09 17:11] LABS: Erythrocyte Sedimentation Rate 27 MM/HR (0-20)
== END 2021-08-09 14:12 | disposition home or self-care (01) ==
LOC: HO.LAB 14:11
PROVIDERS: PCP Nurse Practitioner; Visit Provider Nurse Practitioner Family
DX: M05.9 Rheumatoid arthritis with rheumatoid factor, unspecified (principal); M25.561 Pain in right knee; M25.562 Pain in left knee; Z79.899 Other long term (current) drug therapy; Z87.891 Personal history of nicotine dependence; Z79.52 Long term (current) use of systemic steroids
CPT/HCPCS: 36415; 80053; 85025; 85652; 86140; 99212

== ENCOUNTER → 2021-08-29 11:47 | Outpatient (BNVA) | payer OTHER, SELFPAY | PROVIDERS: PCP Nurse Practitioner; Referring Provider Nurse Practitioner; Visit Provider Nurse Practitioner | DX: K21.9 Gastro-esophageal reflux disease without esophagitis (principal) | CPT/HCPCS: 99212 ==

== ENCOUNTER 2021-09-30 10:55 | Outpatient (REF) | payer OTHER, SELFPAY ==
[2021-09-30 11:33] LABS: MANUAL DIFF FLAG NO
[2021-09-30 11:49] LABS: Appearance Urine CLEAR; Color Urine YELLOW; Glucose Urine UA NEG (NEG); Leukocyte Esterase Urine NEG (NEG); Nitrite Urine NEG (NEG); PH 6.5 (5.0-8.0); UACC Culture Trigger NO; Urine Blood TRACE (NEG); Urine Ketones NEG (NEG); Urine Protein NEG (NEG-TRACE)
[2021-09-30 11:50] LABS: Basophils Absolute Auto 0.1 X10*3/uL (0.0-0.2); Eosinophils Absolute Auto 0.1 X10*3/uL (0.0-0.4); Eosinophils Percent Auto 1.6 % (0-4); Hematocrit 38.9 % (37.0-47.0); Hemoglobin 12.9 g/dl (12.0-16.0); Imm Gran Abs Auto 0.01 X10*3/uL (0.00-0.03); Imm Gran Pct Auto 0.2 % (0.0-0.4); Lymphocytes Absolute Auto 2.7 X10*3/uL (1.2-4.9); Lymphocytes Percent Auto 53.7 % (20-40); Mean Corpuscular HGB Conc 33.2 g/dl (31.0-35.0); Mean Corpuscular Hemoglobin 29.6 pg (27.0-33.0); Mean Corpuscular Volume 89.2 fL (80.0-98.0); Mean Platelet Volume 10.1 fL (9.4-12.3); Monocytes Absolute Auto 0.4 X10*3/uL (0.1-1.2); Monocytes Percent Auto 8.4 % (2-11); Neutrophils Absolute Auto 1.8 x10*3/uL (2.0-8.3); Neutrophils Percent Auto 35.1 % (45-73); Platelet Count 201 X10*3/uL (160-400); Red Blood Count 4.36 X10*6/uL (4.20-5.50); Red Cell Distribution Width 14.2 % (11.0-16.0)
[2021-09-30 12:12] LABS: Anion Gap 14 (12-20); Blood Urea Nitrogen 22 mg/dL (9-16); Calcium 9.5 mg/dL (8.4-10.2); Carbon Dioxide 21 mmol/L (22-29); Chloride 110 mmol/L (96-108); Estimated Glomerular Filt Rate 42; Iron 76 mcg/dL (30-160); Percent Iron Saturation 20 % (15-50); Potassium 5.2 mmol/L (3.3-5.1); Sodium 140 mmol/L (135-145); Total Iron Binding Capacity 374 mcg/dL (228-428); Unsaturated Iron Binding 298 ug/dL
[2021-09-30 12:14] LABS: Bacteria Urine 1+ /LPF; Squamous Epithelial Cell Urine 2+ /LPF
[2021-09-30 12:55] LABS: Creatinine Urine 72.41 mg/dL; Protein/Creatinine Ratio, Ur 0.22 (<0.2); Total Protein Urine Random 16 mg/dL (<12)
== END 2021-09-30 10:56 | disposition home or self-care (01) ==
LOC: HO.LAB 10:55
PROVIDERS: PCP Nurse Practitioner; Visit Provider Internal Medicine Nephrology
DX: N18.30 Chronic kidney disease, stage 3 unspecified (principal)
CPT/HCPCS: 36415; 80051; 81001; 82310; 82565; 83540; 84156; 84520; 85025

== ENCOUNTER 2021-10-11 07:50 | Outpatient (REF) | payer OTHER, SELFPAY ==
[2021-10-11 08:02] LABS: MANUAL DIFF FLAG NO
[2021-10-11 08:32] LABS: Basophils Percent Auto 0.6 % (0-2); Eosinophils Absolute Auto 0.2 X10*3/uL (0.0-0.4); Eosinophils Percent Auto 2.8 % (0-4); Hematocrit 38.1 % (37.0-47.0); Hemoglobin 12.5 g/dl (12.0-16.0); Imm Gran Abs Auto 0.02 X10*3/uL (0.00-0.03); Imm Gran Pct Auto 0.3 % (0.0-0.4); Lymphocytes Absolute Auto 2.7 X10*3/uL (1.2-4.9); Lymphocytes Percent Auto 37.8 % (20-40); Mean Corpuscular HGB Conc 32.8 g/dl (31.0-35.0); Mean Corpuscular Hemoglobin 29.2 pg (27.0-33.0); Mean Platelet Volume 10.1 fL (9.4-12.3); Monocytes Absolute Auto 0.9 X10*3/uL (0.1-1.2); Neutrophils Absolute Auto 3.2 x10*3/uL (2.0-8.3); Neutrophils Percent Auto 45.5 % (45-73); Platelet Count 198 X10*3/uL (160-400); Red Blood Count 4.28 X10*6/uL (4.20-5.50); Red Cell Distribution Width 14.6 % (11.0-16.0); White Blood Count 7.1 X10*3/uL (4.8-10.8)
[2021-10-11 08:54] LABS: Alanine Aminotransferase 30 U/L (0-31); Albumin Level 4.4 g/dL (3.5-5.0); Alkaline Phosphatase 77 U/L (39-117); Anion Gap 13 (12-20); Aspartate Amino Transferase 21 U/L (5-31); Bilirubin Total 0.3 mg/dL (0.0-1.0); Blood Urea Nitrogen 28 mg/dL (9-16); Calcium 9.6 mg/dL (8.4-10.2); Carbon Dioxide 24 mmol/L (22-29); Chloride 109 mmol/L (96-108); Cholesterol 133 mg/dL; Estimated Glomerular Filt Rate 45; Glucose Random 135 mg/dL (60-115); HDL Cholesterol 35 mg/dL; LDL Cholesterol Calculated 64 mg/dl; Potassium 4.9 mmol/L (3.3-5.1); Sodium 141 mmol/L (135-145); Total Protein 7.3 g/dL (6.5-8.0); Triglycerides 174 mg/dL
[2021-10-11 09:14] LABS: Erythrocyte Sedimentation Rate 6 MM/HR (0-20)
[2021-10-11 10:24] LABS: Reflex LDLD? No
== END 2021-10-11 07:51 | disposition home or self-care (01) ==
LOC: HO.LAB 07:50
PROVIDERS: PCP Nurse Practitioner; Visit Provider Nurse Practitioner Family
DX: M05.9 Rheumatoid arthritis with rheumatoid factor, unspecified (principal)
CPT/HCPCS: 36415; 80053; 80061; 85025; 85652; 86140

== ENCOUNTER 2021-10-24 12:02 | Outpatient (REF) | payer OTHER, SELFPAY ==
[2021-10-24 13:17] LABS: Anion Gap 13 (12-20); Blood Urea Nitrogen 31 mg/dL (9-16); Calcium 9.6 mg/dL (8.4-10.2); Carbon Dioxide 20 mmol/L (22-29); Chloride 110 mmol/L (96-108); Estimated Glomerular Filt Rate 42; Potassium 5.7 mmol/L (3.3-5.1); Sodium 137 mmol/L (135-145)
== END 2021-10-24 12:03 | disposition home or self-care (01) ==
LOC: HO.LAB 12:02
PROVIDERS: Visit Provider Internal Medicine Nephrology
DX: N18.32 Chronic kidney disease, stage 3b (principal)
CPT/HCPCS: 36415; 80051; 82310; 82565; 84520

== ENCOUNTER 2021-11-26 13:12 | Outpatient (REF) | payer OTHER, SELFPAY ==
[2021-11-26 13:23] LABS: MANUAL DIFF FLAG NO
[2021-11-26 14:44] LABS: Basophils Percent Auto 0.5 % (0-2); Eosinophils Absolute Auto 0.1 X10*3/uL (0.0-0.4); Eosinophils Percent Auto 1.7 % (0-4); Hematocrit 36.6 % (37.0-47.0); Hemoglobin 11.9 g/dl (12.0-16.0); Imm Gran Abs Auto 0.04 X10*3/uL (0.00-0.03); Imm Gran Pct Auto 0.5 % (0.0-0.4); Lymphocytes Absolute Auto 2.1 X10*3/uL (1.2-4.9); Lymphocytes Percent Auto 27.8 % (20-40); Mean Corpuscular HGB Conc 32.5 g/dl (31.0-35.0); Mean Corpuscular Hemoglobin 29.8 pg (27.0-33.0); Mean Corpuscular Volume 91.5 fL (80.0-98.0); Mean Platelet Volume 10.2 fL (9.4-12.3); Monocytes Absolute Auto 0.8 X10*3/uL (0.1-1.2); Monocytes Percent Auto 10.1 % (2-11); Neutrophils Absolute Auto 4.5 x10*3/uL (2.0-8.3); Neutrophils Percent Auto 59.4 % (45-73); Platelet Count 271 X10*3/uL (160-400); White Blood Count 7.6 X10*3/uL (4.8-10.8)
[2021-11-26 15:11] LABS: Alanine Aminotransferase 10 U/L (0-31); Albumin Level 4.3 g/dL (3.5-5.0); Alkaline Phosphatase 98 U/L (39-117); Anion Gap 13 (12-20); Aspartate Amino Transferase 14 U/L (5-31); Bilirubin Total 0.4 mg/dL (0.0-1.0); Blood Urea Nitrogen 25 mg/dL (9-16); C Reactive Protein 3.54 mg/dL (< or = 0.50); Calcium 9.1 mg/dL (8.4-10.2); Carbon Dioxide 21 mmol/L (22-29); Chloride 110 mmol/L (96-108); Cholesterol 129 mg/dL; Estimated Glomerular Filt Rate 45; Glucose Random 183 mg/dL (60-115); HDL Cholesterol 38 mg/dL; LDL Cholesterol Calculated 61 mg/dl; Potassium 5.3 mmol/L (3.3-5.1); Sodium 139 mmol/L (135-145); Total Protein 7.2 g/dL (6.5-8.0); Triglycerides 150 mg/dL
[2021-11-26 15:23] LABS: Erythrocyte Sedimentation Rate 34 MM/HR (0-20); Reflex LDLD? No
== END 2021-11-26 13:13 | disposition home or self-care (01) ==
LOC: HO.LAB 13:12
PROVIDERS: PCP Nurse Practitioner; Visit Provider Nurse Practitioner Family
DX: M06.9 Rheumatoid arthritis, unspecified (principal)
CPT/HCPCS: 36415; 80053; 80061; 85025; 85652; 86140

== ENCOUNTER 2021-11-28 11:34 | Outpatient (REF) | payer MEDICARE, SELFPAY ==
[2021-11-28 13:07] LABS: C Reactive Protein 3.93 mg/dL (< or = 0.50); Potassium 5.4 mmol/L (3.3-5.1)
[2021-11-28 13:31] LABS: Vitamin D 25-OH Total 15.8 ng/mL (>30)
[2021-11-28 13:36] LABS: Erythrocyte Sedimentation Rate 44 MM/HR (0-20)
== END 2021-11-28 11:35 | disposition home or self-care (01) ==
LOC: HO.LAB 11:34
PROVIDERS: PCP Nurse Practitioner; Visit Provider Nurse Practitioner Family
DX: M05.9 Rheumatoid arthritis with rheumatoid factor, unspecified (principal); E87.5 Hyperkalemia; E55.9 Vitamin D deficiency, unspecified
CPT/HCPCS: 36415; 82306; 84132; 85652; 86140

== ENCOUNTER 2021-12-19 12:15 | Outpatient (REF) | payer OTHER, SELFPAY ==
[2021-12-19 13:50] LABS: Alanine Aminotransferase 31 U/L (0-31); Albumin Level 4.3 g/dL (3.5-5.0); Alkaline Phosphatase 90 U/L (39-117); Anion Gap 14 (12-20); Aspartate Amino Transferase 27 U/L (5-31); Bilirubin Total 0.4 mg/dL (0.0-1.0); Blood Urea Nitrogen 21 mg/dL (9-16); Calcium 9.3 mg/dL (8.4-10.2); Carbon Dioxide 18 mmol/L (22-29); Chloride 111 mmol/L (96-108); Estimated Glomerular Filt Rate 49; Glucose Random 116 mg/dL (60-115); Potassium 5.7 mmol/L (3.3-5.1); Sodium 137 mmol/L (135-145); Total Protein 7.2 g/dL (6.5-8.0)
== END 2021-12-19 12:16 | disposition home or self-care (01) ==
LOC: HO.LAB 12:15
PROVIDERS: PCP Nurse Practitioner; Visit Provider Nurse Practitioner Family
DX: M05.9 Rheumatoid arthritis with rheumatoid factor, unspecified (principal)
CPT/HCPCS: 36415; 80053

== ENCOUNTER 2021-12-19 15:52 | Emergency (ER) | payer OTHER, SELFPAY ==
[2021-12-19 17:22] VITALS: BP 107/47; PULSE 64; RESP 16; TEMP 36.6; O2SAT 97; BMI 33.3
--- NOTE | 2021-12-19 17:25 | ECG_ITS ---
Test Reason : ABNORMAL LABS Blood Pressure : / mmHG Vent. Rate : 064 BPM Atrial Rate : 064 BPM P-R Int : 138 ms QRS Dur : 074 ms QT Int : 386 ms P-R-T Axes : 045 016 035 degrees QTc Int : 398 ms Normal sinus rhythm Normal ECG When compared with ECG of 01-MAR-2014 10:34, No significant change was found Referred By: Generic ED Physician Electronically Signed By:GISEL PINA
[2021-12-19 17:59] LABS: MANUAL DIFF FLAG NO
[2021-12-19 18:02] LABS: Basophils Absolute Auto 0.1 X10*3/uL (0.0-0.2); Basophils Percent Auto 0.6 % (0-2); Eosinophils Absolute Auto 0.2 X10*3/uL (0.0-0.4); Eosinophils Percent Auto 2.4 % (0-4); Hematocrit 34.5 % (37.0-47.0); Hemoglobin 11.3 g/dl (12.0-16.0); Imm Gran Abs Auto 0.02 X10*3/uL (0.00-0.03); Imm Gran Pct Auto 0.2 % (0.0-0.4); Lymphocytes Absolute Auto 3.1 X10*3/uL (1.2-4.9); Lymphocytes Percent Auto 36.8 % (20-40); Mean Corpuscular HGB Conc 32.8 g/dl (31.0-35.0); Mean Corpuscular Volume 91.5 fL (80.0-98.0); Mean Platelet Volume 9.5 fL (9.4-12.3); Monocytes Absolute Auto 0.6 X10*3/uL (0.1-1.2); Monocytes Percent Auto 6.5 % (2-11); Neutrophils Absolute Auto 4.6 x10*3/uL (2.0-8.3); Neutrophils Percent Auto 53.5 % (45-73); Platelet Count 281 X10*3/uL (160-400); Red Blood Count 3.77 X10*6/uL (4.20-5.50); Red Cell Distribution Width 14.3 % (11.0-16.0); White Blood Count 8.5 X10*3/uL (4.8-10.8)
[2021-12-19 18:35] LABS: Alanine Aminotransferase 31 U/L (0-31); Albumin Level 4.3 g/dL (3.5-5.0); Alkaline Phosphatase 87 U/L (39-117); Anion Gap 12 (12-20); Aspartate Amino Transferase 25 U/L (5-31); Bilirubin Total 0.2 mg/dL (0.0-1.0); Blood Urea Nitrogen 24 mg/dL (9-16); Calcium 9.3 mg/dL (8.4-10.2); Carbon Dioxide 21 mmol/L (22-29); Chloride 111 mmol/L (96-108); Creatinine Clr Calc Pharmacy 47.1; Estimated Glomerular Filt Rate 44; Glucose Random 98 mg/dL (60-115); Potassium 5.4 mmol/L (3.3-5.1); Sodium 139 mmol/L (135-145); Total Protein 7.2 g/dL (6.5-8.0)
[2021-12-19 22:05] VITALS: BP 137/59; PULSE 63; RESP 15; O2SAT 99
[2021-12-19] MEDS: Sodium Zirconium Cyclosilicate 10 GM POWD.PACK PO (22:28)
--- NOTE | 2021-12-19 22:41 | ED_ITS ---
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 The patient told me that her manager income tax fo llows routine blood tests on her. She was called and told that her potassium was critically high. The patient's potassium on 12/19/2021 at 12:25 p.m. was 5.7 with a BUN of 21, creatinine of 1.1 and a GFR of 49. The patient states that she has been feeling fine is had no symptoms. She denies lightheadedness, dizziness, weakness, palpitations, chest pain, shortness of breath or dyspnea on exertion. In reviewing the patient's previous laboratory evaluations, the patient's potassium is been trending higher since 08/09/2021 1 it was 5.1. The patient also had a potassium of 5.7 on 10/24/2021. The patient's GFR has been in the 43- 49 range during this time. The patient is not using any potassium /salt substitutes and is not on an unusual diet. She states that 2 months prior she was started on Farxiga(dapglifozin). She is on lisinopril but she has been on this medication for a long time. Related Data Home Medications Medication Instructions Recorded Confirmed acetaminophen 650 mg 650 mg PO Q8H 02/25/20 08/09/21 tablet,extended release albuterol sulfate 90 mcg/actuation 2 puff inhalation Q4-6H PRN 02/25/20 08/09/21 aerosol inhaler (ProAir HFA) Wheezing citalopram 40 mg tablet 20 mg PO DAILY 02/25/20 08/09/21 fluticasone propionate 50 1 spray intranasal BID 02/25/20 08/09/21 mcg/actuation nasal spray,suspension (Allergy Relief (fluticasone)) ipratropium 0.5 mg-albuterol 3 mg 3 ml inhalation QID PRN Wheezing 02/25/20 08/09/21 (2.5 mg base)/3 mL nebulization soln lisinopril 20 1 tab PO DAILY 02/25/20 08/09/21 mg-hydrochlorothiazide 12.5 mg tablet loratadine 10 mg tablet (Allergy 10 mg PO DAILY 02/25/20 08/09/21 Relief (loratadine)) metformin 500 mg tablet 500 mg PO DAILY 02/25/20 08/09/21 montelukast 10 mg tablet 10 mg PO BEDTIME 02/25/20 08/09/21 simvastatin 20 mg tablet 20 mg PO DAILY 02/25/20 08/09/21 tiotropium bromide 18 mcg capsule 1 cap inhalation DAILY 02/25/20 08/09/21 with inhalation device (Spiriva with HandiHaler) alcohol swabs (Alcohol Prep Pads) 0 pad topical BEDTIME 04/04/21 08/09/21 blood sugar diagnostic (FreeStyle #10 ea 04/04/21 08/09/21 Lite Strips) ferrous gluconate 324 mg (38 mg 0 mg PO 04/04/21 08/09/21 iron) tablet umeclidinium 62.5 mcg/actuation 1 inh inhalation DAILY 04/04/21 08/09/21 blister powder for inhalation (Incruse Ellipta) budesonide-formoterol HFA 160 2 puff inhalation BID PRN 05/30/21 08/09/21 mcg-4.5 mcg/actuation aerosol inhaler (Symbicort) fluticasone 500 mcg-salmeterol 50 1 ea inhalation BID PRN 05/30/21 08/09/21 mcg/dose blistr powdr for inhalation (Wixela Inhub) ibuprofen 200 mg tablet (Advil) 400 mg PO Q8H PRN 05/30/21 08/09/21 Previous Rx's Medication Instructions Recorded gabapentin 300 mg capsule 300 mg PO BID #60 caps 01/08/21 dexlansoprazole 60 mg 60 mg PO DAILY 30 days #30 caps 08/29/21 capsule,biphase delayed release (Dexilant) cholecalciferol (vitamin D3) 25 25 mcg PO DAILY #90 caps 12/03/21 mcg (1,000 unit) capsule sarilumab 200 mg/1.14 mL 200 mg (1.14 mL) subcut Q2W #2.28 12/03/21 subcutaneous pen injector (Kevzara) mL Allergies Allergy/AdvReac Type Severity Reaction Status Date / Time latex [LATEX] Allergy Intermediate BLISTERS Verified 12/19/21 17:25 abatacept [From Orencia] Allergy Unknown Itching Verified 12/19/21 17:25 adalimumab [From Humira] Allergy dizziness Verified 12/19/21 17:25 aspirin AdvReac Intermediate abdominal Verified 12/19/21 17:25 pain Review of Systems Review of Systems: Yes all other systems are reviewed and are negative FOR[facility]LY [facility], [facility] Past Medical History FOR[facility]LY [facility], [facility] Narrative: Social history: The patient is a former smoker and quit in 2014. She denies alcohol use. She denies drug use. 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 user Lymphedema Surgical History H/O colonoscopy H/O cystoscopy H/O local excision of skin lesion History of bilateral carpal tunnel release History of esophagogastroduodenoscopy (EGD) Hx of hand surgery Hx of thumb surgery S/P lumpectomy, right breast Seropositive rheumatoid arthritis Family History Family History Father Throat cancer Mother Asthma Osteoarthritis Sister Breast cancer Social History Social History Alcohol intake: never Patient Tobacco Use Status: Former Tobacco user Quit Date: 2014 Tobacco use type: Cigarette Years Smoked: quit in 2014 Use of substances other than those prescribed or required for medical reasons: No Advance Directives: Yes Advance Directives Information Provided: Yes Advance Directives on File: No Current occupational status: retired 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 Physical Exam Vital Signs: Vital Signs: Last Vital Signs Temp 97.8 F 12/19/21 17:22 Pulse 63 12/19/21 22:05 Resp 15 12/19/21 22:05 BP 137/59 L 12/19/21 22:05 Pulse Ox 99 12/19/21 22:05 O2 Del Method 12/19/21 22:05 BMI result Body Mass Index 33.3 Const: General: cooperative and no acute distress Orientation/consciousness: oriented to person and oriented to place Limitations: no limitations HEENT: Head: Yes normal to inspection, Yes normocephalic and Yes atraumatic Ears: external ears normal General nose exam: Normal external nose present Face and sinus: Yes normal facial exam Mouth: Normal oral and palatal mucosa present Throat: Yes posterior oropharynx normal Eyes: General: appearance normal, both eyes and all related structures Pupils: Equal, round and reactive pupils present Neck: Neck: Yes normal visual inspection, Yes no lymphadenopathy, Yes trachea midline and Yes supple Chest: Chest palpation & inspection: normal inspection of the chest and normal palpation of entire chest wall Resp: Effort & Inspection: normal respiratory effort and able to speak in complete sentences Auscultation: clear to auscultation bilaterally Cardio: Rate: regular rate Rhythm: regular rhythm Heart sounds: S1 normal heart sound present, S2 normal heart sound present and no murmurs GI: Inspection: Yes normal to inspection Palpation (GI): Soft to palpation, nontender and no guarding Auscultation: normal bowel sounds : General: Yes no CVA tenderness Back/Spine/Pelvis: Back: no CVA tenderness Skin: General skin exam: no rashes or lesions noted Neuro: General: oriented to person and oriented to place Cranial nerves: Y es CN's II-XII intact bilaterally and Yes Equal, round and reactive pupils present Cognition (Neuro): normal cognition Motor exam (neuro): 5/5 motor strength present throughout Extrem: General: Yes normal to inspection Psych: Appearance: grossly normal Speech and movement: Normal speech and movement present Affect: normal affect Attitude: cooperative Course Course Course Narrative: 71-year-old female who presents emergency department for evaluation of an elevated potassium of 5.7 which was noted on a routine laboratory evaluation done earlier today. The patient has been asymptomatic. In reviewing her lab values she has been trending up in her potassium over the past 5 months. The patient does have some renal insufficiency but her GFR is been ranging between 43 and 49 over the past several months and is unchanged. The patient is not taking any potassium supplements and is not on any unusual diet. She does take lisinopril. The patient's examination was unremarkable. Repeat laboratory evaluation did reveal an elevated potassium of 5.4. The patient was given Lokelma 10 mg orally. She was advised to contact her supervisor [employer]eng[employer] for evaluation to determine if 1 of her medications is causing her high potassium or if there is another cause. The patient was discharged home with verbal and printed instructions. She was advised to avoid high potassium foods. MDM - Recheck/Abnormal Lab/Rx Lab Data Result diagrams: 12/19/21 17:54 12/19/21 17:54 Labs: Lab Results 12/19/21 12/19/21 Range/Units 17:54 17:54 WBC 8.5 (4.8-10.8) X10*3/uL RBC 3.77 L (4.20-5.50) X10*6/uL Hgb 11.3 L (12.0-16.0) g/dl Hct 34.5 L (37.0-47.0) % MCV 91.5 (80.0-98.0) fL MCH 30.0 (27.0-33.0) pg MCHC 32.8 (31.0-35.0) g/dl RDW 14.3 (11.0-16.0) % Plt Count 281 (160-400) X10*3/uL MPV 9.5 (9.4-12.3) fL Immature Gran % (Auto) 0.2 (0.0-0.4) % Neut % (Auto) 53.5 (45-73) % Lymph % (Auto) 36.8 (20-40) % [place] % (Auto) 6.5 (2-11) % Eos % (Auto) 2.4 (0-4) % Baso % (Auto) 0.6 (0-2) % Lymph # (Auto) 3.1 (1.2-4.9) X10*3/uL [place] # (Auto) 0.6 (0.1-1.2) X10*3/uL Eos # (Auto) 0.2 (0.0-0.4) X10*3/uL Baso # (Auto) 0.1 (0.0-0.2) X10*3/uL Abs Immat Gran (auto) 0.02 (0.00-0.03) X10*3/uL Absolute Neuts (auto) 4.6 (2.0-8.3) x10*3/uL Absolute Nucleated RBC 0.000 (0.0-0.012) X10*3/uL Nucleated RBC % (auto) 0.0 (0.0-0.2) /100WBC Sodium 139 (135-145) mmol/L Potassium 5.4 H (3.3-5.1) mmol/L Chloride 111 H (96-108) mmol/L Carbon Dioxide 21 L (22-29) mmol/L Anion Gap 12 (12-20) BUN 24 H (9-16) mg/dL Creatinine 1.21 (0.5-1.4) mg/dL Estim Creat Clear Calc 47.1 Estimated GFR 44 Random Glucose 98 (60-115) mg/dL Calcium 9.3 (8.4-10.2) mg/dL Total Bilirubin 0.2 (0.0-1.0) mg/dL AST 25 (5-31) U/L ALT 31 (0-31) U/L Alkaline Phosphatase 87 (39-117) U/L Total Protein 7.2 (6.5-8.0) g/dL Albumin 4.3 (3.5-5.0) g/dL Discharge Plan Discharge Clinical Impression: Acute hyperkalemia Patient Disposition: Home, Self-Care Instructions: Hyperkalemia (ED), Potassium Content of Foods List (ED) Additional Instructions: Your potassium earlier today was high 5.7 and a repeat today in the emergency department was also high at 5.4. The normal range for potassium is 3.3-5.1. In reviewing your labs your potassium has been high in the past. See list below: 12/11/2021 5.4 12/19/2021 5.7 11/28/2021 5.4 11/26/2021 3.3 10/11/2021 4.9 09/30/2021 5.2 08/09/2021 5.1. Your kidney function is slightly below normal with a GFR of 44 (GFR is usually greater than 60). Your BUN today was 24 with a creatinine of 2.12 You received Lokelma 10 mg orally, this should lower your potassium. You need to follow-up with your supervisor [employer]eng[employer]ving (kidney doctor) so that they can find out why your potassium has been high over the past several months. It is possible that the high potassium could be secondary to medications that your taking such as lisinopril. Do not stop any of your medications unless your instructed to do so by your supervisor [employer]eng[employer]ving You should avoid high potassium foods. Follow-up with your doctor in 2 days. Please return to the emergency department if your symptoms get worse or if you develop any symptoms that are concerning to you. Prescriptions: No Action gabapentin 300 mg capsule 300 mg PO BID Qty: 60 5RF cholecalciferol (vitamin D3) 25 mcg (1,000 unit) capsule 25 mcg PO DAILY Qty: 90 1RF Kevzara 200 mg/1.14 mL pen injector 200 mg subcut Q2W Qty: 2.28 1RF acetaminophen 650 mg tablet extended release 650 mg PO Q8H metformin 500 mg tablet 500 mg PO DAILY citalopram 40 mg tablet 20 mg PO DAILY loratadine [Allergy Relief (loratadine)] 10 mg tablet 10 mg PO DAILY montelukast 10 mg tablet 10 mg PO BEDTIME ipratropium-albuterol 0.5 mg-3 mg(2.5 mg base)/3 mL solution for nebulization 3 ml inhalation QID PRN (Reason: Wheezing) fluticasone propionate [Allergy Relief (fluticasone)] 50 mcg/actuation spr ay,suspension 1 spray intranasal BID Rx Instructions: administer into each nostril lisinopril-hydrochlorothiazide 20-12.5 mg tablet 1 tab PO DAILY albuterol sulfate [ProAir HFA] 90 mcg/actuation HFA aerosol inhaler 2 puff inhalation Q4-6H PRN (Reason: Wheezing) Spiriva with HandiHaler 18 mcg capsule, w/inhalation device 1 cap inhalation DAILY Rx Instructions: puncture 1 cap using device; one dose = 2 inhalations simvastatin 20 mg tablet 20 mg PO DAILY budesonide-formoterol [Symbicort] 160-4.5 mcg/actuation HFA aerosol inhaler 2 puff inhalation BID PRN ibuprofen [Advil] 200 mg tablet 400 mg PO Q8H PRN Incruse Ellipta 62.5 mcg/actuation blister with device 1 inh inhalation DAILY ferrous gluconate 324 mg (38 mg iron) tablet 0 mg PO (DME) FreeStyle Lite Strips Strip See Rx Instructions Not Applicable TID Qty: 10 Rx Instructions: As directed alcohol swabs [Alcohol Prep Pads] Pads, Medicated 0 pad topical BEDTIME fluticasone propion-salmeterol [Wixela Inhub] 500-50 mcg/dose blister with device 1 ea inhalation BID PRN Dexilant 60 mg capsule,biphase delayed releas 60 mg PO DAILY 30 Days Qty: 30 6RF
== END 2021-12-19 22:53 | disposition home or self-care (01) ==
PROVIDERS: Emergency Provider Emergency Medicine Emergency Medical Services; PCP Nurse Practitioner
DX: E23.2 Diabetes insipidus (principal); R79.89 Other specified abnormal findings of blood chemistry; Z79.899 Other long term (current) drug therapy; Z87.891 Personal history of nicotine dependence; Z79.4 Long term (current) use of insulin
CPT/HCPCS: 36415; 80053; 85025; 93005; 99283; 99284

== ENCOUNTER → 2021-12-26 13:25 | Outpatient (BNVA) | payer OTHER, SELFPAY | PROVIDERS: Visit Provider Nurse Practitioner Family | DX: M05.9 Rheumatoid arthritis with rheumatoid factor, unspecified (principal); M25.521 Pain in right elbow; M25.561 Pain in right knee; M25.562 Pain in left knee; Z79.52 Long term (current) use of systemic steroids | CPT/HCPCS: 99212 ==

== ENCOUNTER 2021-12-30 13:36 | Outpatient (REF) | payer OTHER, SELFPAY ==
--- NOTE | ~2021-12-30 | XR_ITS ---
EXAMINATION: XR FOOT-BILATERAL XR ELBOW-RIGHT CLINICAL INFORMATION: Right elbow pain and bilateral foot pain. Rheumatoid arthritis. COMPARISON: None TECHNIQUE: 3 views each of both feet and 3 views of the right hand were obtained. FINDINGS: Right foot: Mild diffuse osteopenia. Bony alignments are intact. The cortices are intact. Enthesopathy at the insertional site of the Achilles tendon to the calcaneus and small posterior plantar calcaneal spot is present. Degenerative osteoarthrosis is noted at the talonavicular joint. No evidence of any articular or subarticular erosion. No evidence of any periosteal reaction. Left foot: Mild diffuse osteopenia. The bony alignments are intact. The cortices are intact. No evidence of any articular or subarticular erosion or periosteal reaction. Small posterior plantar calcaneal spur and enthesopathy at the insertional site of the Achilles tendon to the calcaneus. Subtalar spur is present. Right elbow: Bony alignments are intact. The cortices are intact. No evidence of any articular or subarticular erosion or joint effusion present. Subchondral sclerosis, osteophyte formations, consistent with osteoarthrosis related changes are present mostly at the radiohumeral joint. In addition, well-corticated bony scars are present involving both medial as well as lateral epicondyles of the humerus, consistent with enthesopathy. XR/XR foot RT 2V IMPRESSION: 1. No radiographic evidence of rheumatoid arthritis is present at both feet and right elbow. 2. Bilateral Calcaneal Spur and bilateral enthesopathy at the insertional site of the Achilles tendon to the calcaneus. 3. 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 4. Enthesopathy at both medial and lateral humeral epicondyles.
--- NOTE | ~2021-12-30 | XR_ITS ---
EXAMINATION: XR FOOT-BILATERAL XR ELBOW-RIGHT CLINICAL INFORMATION: Right elbow pain and bilateral foot pain. Rheumatoid arthritis. COMPARISON: None TECHNIQUE: 3 views each of both feet and 3 views of the right hand were obtained. FINDINGS: Right foot: Mild diffuse osteopenia. Bony alignments are intact. The cortices are intact. Enthesopathy at the insertional site of the Achilles tendon to the calcaneus and small posterior plantar calcaneal spot is present. Degenerative osteoarthrosis is noted at the talonavicular joint. No evidence of any articular or subarticular erosion. No evidence of any periosteal reaction. Left foot: Mild diffuse osteopenia. The bony alignments are intact. The cortices are intact. No evidence of any articular or subarticular erosion or periosteal reaction. Small posterior plantar calcaneal spur and enthesopathy at the insertional site of the Achilles tendon to the calcaneus. Subtalar spur is present. Right elbow: Bony alignments are intact. The cortices are intact. No evidence of any articular or subarticular erosion or joint effusion present. Subchondral sclerosis, osteophyte formations, consistent with osteoarthrosis related changes are present mostly at the radiohumeral joint. In addition, well-corticated bony scars are present involving both medial as well as lateral epicondyles of the humerus, consistent with enthesopathy. XR/XR elbow RT 2V IMPRESSION: 1. No radiographic evidence of rheumatoid arthritis is present at both feet and right elbow. 2. Bilateral Calcaneal Spur and bilateral enthesopathy at the insertional site of the Achilles tendon to the calcaneus. 3. 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 4. Enthesopathy at both medial and lateral humeral epicondyles.
--- NOTE | ~2021-12-30 | XR_ITS ---
EXAMINATION: XR FOOT-BILATERAL XR ELBOW-RIGHT CLINICAL INFORMATION: Right elbow pain and bilateral foot pain. Rheumatoid arthritis. COMPARISON: None TECHNIQUE: 3 views each of both feet and 3 views of the right hand were obtained. FINDINGS: Right foot: Mild diffuse osteopenia. Bony alignments are intact. The cortices are intact. Enthesopathy at the insertional site of the Achilles tendon to the calcaneus and small posterior plantar calcaneal spot is present. Degenerative osteoarthrosis is noted at the talonavicular joint. No evidence of any articular or subarticular erosion. No evidence of any periosteal reaction. Left foot: Mild diffuse osteopenia. The bony alignments are intact. The cortices are intact. No evidence of any articular or subarticular erosion or periosteal reaction. Small posterior plantar calcaneal spur and enthesopathy at the insertional site of the Achilles tendon to the calcaneus. Subtalar spur is present. Right elbow: Bony alignments are intact. The cortices are intact. No evidence of any articular or subarticular erosion or joint effusion present. Subchondral sclerosis, osteophyte formations, consistent with osteoarthrosis related changes are present mostly at the radiohumeral joint. In addition, well-corticated bony scars are present involving both medial as well as lateral epicondyles of the humerus, consistent with enthesopathy. XR/XR foot LT 2V IMPRESSION: 1. No radiographic evidence of rheumatoid arthritis is present at both feet and right elbow. 2. Bilateral Calcaneal Spur and bilateral enthesopathy at the insertional site of the Achilles tendon to the calcaneus. 3. 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 4. Enthesopathy at both medial and lateral humeral epicondyles.
[2021-12-30 16:05] LABS: Uric Acid 8.7 mg/dL (2.4-5.7)
== END 2021-12-30 13:37 | disposition home or self-care (01) ==
LOC: HO.XRAY 13:36
PROVIDERS: PCP Nurse Practitioner; Visit Provider Nurse Practitioner Family
DX: M25.521 Pain in right elbow (principal); M05.9 Rheumatoid arthritis with rheumatoid factor, unspecified; M79.672 Pain in left foot; M79.671 Pain in right foot
CPT/HCPCS: 36415; 73070; 73620; 84550

== ENCOUNTER 2022-01-31 14:20 | Outpatient (REF) | payer OTHER, SELFPAY ==
--- NOTE | ~2022-01-31 | MM_ITS ---
EXAMINATION: BONE DENSITOMETRY CLINICAL INDICATION: Menopause. COMPARISON: Previous BD dated 01/27/2020 and baseline BD dated 12/17/2007. TECHNIQUE: Using a Xetal DXA System (software version: 13.1) manufactured by [employer], dual-energy x-ray absorptiometry was performed of the lumbar spine and left hip. The images are of good technical quality. Summary results are attached. FINDINGS: AP SPINE L1-L4: Current: BMD 0.992 g/cm2, Z-score -0.6, T-score -1.6, osteopenia, 3.7% decrease from previous, 0.9% decrease from baseline (<5% change is not significant). Prior: BMD 1.030 g/cm2. Baseline: BMD 1.001 g/cm2. LEFT FEMUR, NECK: Current: BMD 0.939 g/cm2, Z-score 0.5, T-score -0.7, normal. Prior: BMD 0.901 g/cm2. Baseline: BMD 0.912 g/cm2. LEFT FEMUR, TOTAL: Current: BMD 0.997 g/cm2, Z-score 0.8, T-score -0.1, normal, 0.1% increase from previous, 4.0% increase from baseline (<5% change is not significant). Prior: BMD 0.996 g/cm2. Baseline: BMD 0.959 g/cm2. IDENTIFIED RISK FACTORS: Rheumatoid arthritis, renal, menopause. HISTORY OF FRACTURE: None listed. MEDICATIONS: None listed. MM/XR DEXA axial skeleton IMPRESSION: 1. DIAGNOSIS: Osteopenia based on the lowest T-score value of -1.6 in the lumbar spine applying World Health Organization criteria. 2. 10-YEAR FRACTURE RISK PREDICTION, FRAX: Major osteoporotic fracture (clinical spine, forearm, hip or shoulder) 5.5%. Hip fracture 0.5%. 3. Treatment Recommendations: NOF guidelines recommend consideration for treatment in postmenopausal women and men age 50 and older presenting with the following: -A hip or vertebral (clinical or morphometric) fracture. -T-score less than or equal to -2.5 at the femoral neck or spine after appropriate evaluation to exclude secondary causes. -Low bone mass at the hip or spine and a 10-year fracture probability by FRAX of greater than or equal to 3% for hip fracture or greater than or equal to 20% for major osteoporotic fracture based on the [place] adapted WHO algorithm. 4. Other Recommendations: All treatment decisions require clinical judgment and consideration of individual patient factors, including patient preferences, comorbidities, previous drug use, risk factors not captured in the FRAX model (e.g. frailty, falls, vitamin D deficiency, increased bone turnover, interval significant decline in bone density) and possible under or overestimation of fracture risk by FRAX. Additional medical evaluation for secondary cause of low bone mineral density may be appropriate. FUTURE SCAN RECOMMENDATION: People with diagnosed cases of osteoporosis or at high risk for fracture should have regular bone mineral density tests. For patients eligible for Medicare, routine testing is allowed once every 2 years. The testing frequency can be increased to one year for patients who have rapidly progressing disease, those who are receiving or discontinuing medical therapy to restore bone mass, or have additional risk factors.
[2022-01-31 15:06] LABS: MANUAL DIFF FLAG NO
[2022-01-31 15:37] LABS: Basophils Absolute Auto 0.1 X10*3/uL (0.0-0.2); Basophils Percent Auto 0.6 % (0-2); Eosinophils Absolute Auto 0.1 X10*3/uL (0.0-0.4); Eosinophils Percent Auto 0.8 % (0-4); Hematocrit 37.3 % (37.0-47.0); Hemoglobin 12.2 g/dl (12.0-16.0); Imm Gran Abs Auto 0.06 X10*3/uL (0.00-0.03); Imm Gran Pct Auto 0.5 % (0.0-0.4); Lymphocytes Absolute Auto 4.5 X10*3/uL (1.2-4.9); Lymphocytes Percent Auto 36.4 % (20-40); Mean Corpuscular HGB Conc 32.7 g/dl (31.0-35.0); Mean Corpuscular Hemoglobin 29.4 pg (27.0-33.0); Mean Corpuscular Volume 89.9 fL (80.0-98.0); Mean Platelet Volume 9.6 fL (9.4-12.3); Monocytes Absolute Auto 0.9 X10*3/uL (0.1-1.2); Monocytes Percent Auto 7.7 % (2-11); Neutrophils Absolute Auto 6.6 x10*3/uL (2.0-8.3); Platelet Count 291 X10*3/uL (160-400); Red Blood Count 4.15 X10*6/uL (4.20-5.50); Red Cell Distribution Width 14.1 % (11.0-16.0); White Blood Count 12.3 X10*3/uL (4.8-10.8)
[2022-01-31 16:00] LABS: Alanine Aminotransferase 19 U/L (0-31); Aspartate Amino Transferase 15 U/L (5-31); C Reactive Protein 0.52 mg/dL (< or = 0.50); Estimated Glomerular Filt Rate 35; Uric Acid 6.4 mg/dL (2.4-5.7)
[2022-01-31 16:58] LABS: Erythrocyte Sedimentation Rate 12 MM/HR (0-20)
== END 2022-01-31 14:21 | disposition home or self-care (01) ==
LOC: HO.MAMMO 14:20
PROVIDERS: Absent Provider Nurse Practitioner Family; PCP Nurse Practitioner; Visit Provider Nurse Practitioner
DX: Z13.820 Encounter for screening for osteoporosis (principal); Z78.0 Asymptomatic menopausal state; M10.9 Gout, unspecified; M05.9 Rheumatoid arthritis with rheumatoid factor, unspecified; M85.80 Other specified disorders of bone density and structure, unspecified site; Z79.899 Other long term (current) drug therapy
CPT/HCPCS: 36415; 77080; 82565; 84450; 84460; 84550; 85025; 85652; 86140

== ENCOUNTER → 2022-02-04 10:43 | Outpatient (BNVA) | payer OTHER, SELFPAY | PROVIDERS: PCP Nurse Practitioner; Visit Provider Nurse Practitioner Family | DX: M05.9 Rheumatoid arthritis with rheumatoid factor, unspecified (principal); M10.9 Gout, unspecified; M25.561 Pain in right knee; M25.562 Pain in left knee; Z79.52 Long term (current) use of systemic steroids | CPT/HCPCS: 99212 ==

== ENCOUNTER 2022-02-06 10:46 | Outpatient (REF) | payer OTHER, SELFPAY ==
--- NOTE | ~2022-02-06 | XR_ITS ---
EXAMINATION: XR KNEE, RIGHT CLINICAL INFORMATION: M25.561 - Pain in right knee. COMPARISON: Radiographs right knee 11/16/2017 TECHNIQUE: 5 views of the right knee. FINDINGS: No fracture or dislocation or destructive process. There are degenerative changes greatest patellofemoral joint with joint narrowing and osteophytes. No erosive change. There is small benign cyst medial aspect medial femoral condyle similar to prior radiographs 2018. There is small suprapatellar effusion. Spurring at the quadriceps insertion patella and insertion patella tendon on the proximal anterior tibia again seen. XR/XR knee RT 3V IMPRESSION: -Osteoarthritis, greatest patellofemoral joint. -Spurring extensor mechanism. Small suprapatellar effusion.
[2022-02-06 11:58] LABS: Blood Urea Nitrogen 30 mg/dL (9-16); Estimated Glomerular Filt Rate 28; Uric Acid 5.9 mg/dL (2.4-5.7)
== END 2022-02-06 10:47 | disposition home or self-care (01) ==
LOC: HO.LAB 10:46
PROVIDERS: Visit Provider Nurse Practitioner Family
DX: M10.9 Gout, unspecified (principal); M25.561 Pain in right knee
CPT/HCPCS: 36415; 73562; 82565; 84520; 84550

== ENCOUNTER → 2022-03-21 11:47 | Outpatient (BNVA) | payer OTHER, SELFPAY | PROVIDERS: PCP Nurse Practitioner; Visit Provider Nurse Practitioner | DX: K21.9 Gastro-esophageal reflux disease without esophagitis (principal) | CPT/HCPCS: 99212 ==

== ENCOUNTER → 2022-04-08 13:52 | Outpatient (BNVA) | payer OTHER, SELFPAY | PROVIDERS: PCP Nurse Practitioner; Referring Provider Nurse Practitioner; Visit Provider Surgery | DX: C50.911 Malignant neoplasm of unspecified site of right female breast (principal) | CPT/HCPCS: 99212 ==

== ENCOUNTER → 2022-04-23 12:54 | Outpatient (BNVA) | payer OTHER, SELFPAY | PROVIDERS: Visit Provider Nurse Practitioner Family | DX: M05.9 Rheumatoid arthritis with rheumatoid factor, unspecified (principal); M10.9 Gout, unspecified; M25.561 Pain in right knee; M25.562 Pain in left knee; Z79.52 Long term (current) use of systemic steroids | CPT/HCPCS: 99212 ==

== ENCOUNTER 2022-05-12 11:14 | Outpatient (REF) | payer OTHER, SELFPAY ==
[2022-05-12 12:44] LABS: Blood Urea Nitrogen 26 mg/dL (9-16); Estimated Glomerular Filt Rate 42; Uric Acid 3.5 mg/dL (2.4-5.7)
== END 2022-05-12 11:15 | disposition home or self-care (01) ==
LOC: HO.LAB 11:14
PROVIDERS: Visit Provider Nurse Practitioner Family
DX: M10.9 Gout, unspecified (principal)
CPT/HCPCS: 36415; 82565; 84520; 84550

== ENCOUNTER → 2022-06-09 10:25 | Outpatient (BNVA) | payer OTHER, SELFPAY | PROVIDERS: Visit Provider Nurse Practitioner Family | DX: M05.9 Rheumatoid arthritis with rheumatoid factor, unspecified (principal); M10.9 Gout, unspecified; Z79.52 Long term (current) use of systemic steroids | CPT/HCPCS: 99212 ==

== ENCOUNTER 2022-06-16 11:00 | Outpatient (REF) | payer OTHER, SELFPAY ==
--- NOTE | ~2022-06-16 | MM_ITS ---
EXAMINATION: MM SCREENING DIGITAL BREAST TOMOSYNTHESIS, BILATERAL CLINICAL INFORMATION: Screening. Asymptomatic. Status post right breast lumpectomy COMPARISON: Mammography: May 29, 2021 and studies dating back to December 24, 2015 TECHNIQUE: Digital breast tomosynthesis is performed in both the craniocaudal and mediolateral oblique views along with computer-aided detection (CAD). Synthesized 2D images are generated from the tomosynthesis. FINDINGS: There are scattered areas of fibroglandular density (ACR BI-RADS breast composition Category b). There are no new significant masses, abnormal calcifications, or other abnormalities. Post therapy change right breast again seen. MM/MM tomosynthesis screening BI IMPRESSION: No significant changes from prior exam. ASSESSMENT: BI-RADS 2: Benign RECOMMENDATION: Routine annual mammography screening. This patient's information was entered into a reminder system with a target due date for their next mammogram.
== END 2022-06-16 11:01 | disposition home or self-care (01) ==
LOC: HO.MAMMO 11:00
PROVIDERS: PCP Emergency Medicine; Visit Provider Emergency Medicine
DX: Z12.31 Encounter for screening mammogram for malignant neoplasm of breast (principal)
CPT/HCPCS: 77063; 77067

== ENCOUNTER 2022-07-30 12:42 | Outpatient (REF) | payer OTHER, SELFPAY ==
[2022-07-30 13:00] LABS: MANUAL DIFF FLAG NO
[2022-07-30 14:13] LABS: Basophils Absolute Auto 0.1 X10*3/uL (0.0-0.2); Basophils Percent Auto 1.1 % (0-2); Eosinophils Absolute Auto 0.4 X10*3/uL (0.0-0.4); Eosinophils Percent Auto 5.7 % (0-4); Hemoglobin 12.4 g/dl (12.0-16.0); Imm Gran Abs Auto 0.02 X10*3/uL (0.00-0.03); Imm Gran Pct Auto 0.3 % (0.0-0.4); Lymphocytes Absolute Auto 2.6 X10*3/uL (1.2-4.9); Lymphocytes Percent Auto 34.2 % (20-40); Mean Corpuscular HGB Conc 31.8 g/dl (31.0-35.0); Mean Corpuscular Hemoglobin 28.3 pg (27.0-33.0); Mean Platelet Volume 9.9 fL (9.4-12.3); Monocytes Absolute Auto 0.6 X10*3/uL (0.1-1.2); Neutrophils Absolute Auto 3.9 x10*3/uL (2.0-8.3); Neutrophils Percent Auto 50.7 % (45-73); Platelet Count 337 X10*3/uL (160-400); Red Blood Count 4.38 X10*6/uL (4.20-5.50); Red Cell Distribution Width 14.1 % (11.0-16.0); White Blood Count 7.6 X10*3/uL (4.8-10.8)
[2022-07-30 14:44] LABS: Alanine Aminotransferase 14 U/L (0-31); Aspartate Amino Transferase 18 U/L (5-31); C Reactive Protein 1.65 mg/dL (< or = 0.50); Estimated Glomerular Filt Rate 37; Uric Acid 6.2 mg/dL (2.4-5.7)
[2022-07-30 15:04] LABS: Erythrocyte Sedimentation Rate 36 MM/HR (0-20)
== END 2022-07-30 12:43 | disposition home or self-care (01) ==
LOC: HO.LAB 12:42
PROVIDERS: PCP Registered Nurse; Visit Provider Nurse Practitioner Family
DX: M10.9 Gout, unspecified (principal)
CPT/HCPCS: 36415; 82565; 84450; 84460; 84550; 85025; 85652; 86140

== ENCOUNTER 2022-09-01 13:33 | Outpatient (REF) | payer OTHER, SELFPAY ==
[2022-09-01 15:01] LABS: Alanine Aminotransferase 15 U/L (0-31); Albumin Level 4.3 g/dL (3.5-5.0); Alkaline Phosphatase 93 U/L (39-117); Anion Gap 15 (12-20); Aspartate Amino Transferase 15 U/L (5-31); Bilirubin Total 0.4 mg/dL (0.0-1.0); Blood Urea Nitrogen 32 mg/dL (9-16); Calcium 9.9 mg/dL (8.4-10.2); Carbon Dioxide 23 mmol/L (22-29); Chloride 111 mmol/L (96-108); Estimated Glomerular Filt Rate 36; Glucose Random 111 mg/dL (60-115); Potassium 5.6 mmol/L (3.3-5.1); Sodium 143 mmol/L (135-145); Uric Acid 4.2 mg/dL (2.4-5.7)
== END 2022-09-01 13:34 | disposition home or self-care (01) ==
LOC: HO.LAB 13:33
PROVIDERS: PCP Registered Nurse; Visit Provider Nurse Practitioner Family
DX: M10.9 Gout, unspecified (principal)
CPT/HCPCS: 36415; 80053; 84550

== ENCOUNTER 2022-09-15 13:25 | Outpatient (REF) | payer OTHER, SELFPAY ==
[2022-09-15 15:59] LABS: Estimated Glomerular Filt Rate 34; Potassium 5.3 mmol/L (3.3-5.1)
== END 2022-09-15 13:26 | disposition home or self-care (01) ==
LOC: HO.LAB 13:25
PROVIDERS: PCP Registered Nurse; Visit Provider Nurse Practitioner Family
DX: M05.9 Rheumatoid arthritis with rheumatoid factor, unspecified (principal); M10.9 Gout, unspecified; E87.5 Hyperkalemia; Z79.52 Long term (current) use of systemic steroids
CPT/HCPCS: 36415; 82565; 84132; 99212

== ENCOUNTER → 2022-10-09 15:21 | Outpatient (BNVA) | payer OTHER, SELFPAY | PROVIDERS: PCP Registered Nurse; Referring Provider Registered Nurse; Visit Provider Nurse Practitioner | DX: K21.9 Gastro-esophageal reflux disease without esophagitis (principal); Z79.899 Other long term (current) drug therapy | CPT/HCPCS: 99212 ==

== ENCOUNTER 2023-01-05 13:08 | Outpatient (AMB) | payer OTHER, SELFPAY ==
--- NOTE | 2023-01-05 13:12 | MHC.OFFVIS ---
Intake Vital Signs 01/05/23 13:14 Height 5 ft 4 in Weight 191 lb 12.835 oz BMI 32.9 BP 92/54 L Blood Pressure Location Rt brachial Position Sitting Pulse 76 Pulse Source Pulse Oximeter Temp 97 F Temp Source Skin Pulse Oximetry (%) 96 Oxygen Delivery Method Room Air Intake Visit Reasons: Gout/ hx RA Intake Note: Here for hx RA and gout c/o hoda hand pain, L>R Instructional Interventionist Required: No Accompanied by: Self / Same As Patient Allergies latex [LATEX] Allergy (Intermediate, Verified 01/05/23 13:13) BLISTERS abatacept [From Orencia] Allergy (Unknown, Verified 01/05/23 13:13) Itching adalimumab [From Humira] Allergy (Verified 01/05/23 13:13) dizziness aspirin Adverse Reaction (Intermediate, Verified 01/05/23 13:13) abdominal pain Medication List - Last Reconciled 01/05/23 by Demond Presley MD acetaminophen ER 650 mg PO Q8H albuterol sulfate 2.5 mg inhalation Q4H PRN alcohol swabs (Alcohol Prep Pads) 0 pad topical BEDTIME azelastine 1 spray intranasal BID blood sugar diagnostic (FreeStyle Lite Strips) As directed cholecalciferol (vitamin D3) 25 mcg PO DAILY citalopram 20 mg PO DAILY colchicine (gout) 0.6 mg PO DAILY dapagliflozin propanediol 5 mg PO DAILY dexlansoprazole (Dexilant) 60 mg PO DAILY 30 days dulaglutide (Trulicity) 0.75 mg subcut QWEEK febuxostat 40 mg PO DAILY ferrous gluconate 324 mg PO .every other day gabapentin 300 mg PO BID ipratropium-albuterol 0.5 mg-3 mg(2.5 mg base)/3 mL 3 mL inhalation QID PRN lisinopril-hydrochlorothiazide 20-12.5 mg 1 tab PO QAM loratadine (Allergy Relief (loratadine)) 10 mg PO DAILY melatonin 10 mg PO BEDTIME PRN montelukast 10 mg PO BEDTIME simvastatin 20 mg PO DAILY HPI HPI Comments History of Present Illness Details The patient returns for evaluation of her gout and osteoarthritis. In the past she had been treated for seropositive rheumatoid arthritis but treatment options were often met with lack of success and or toxicity.. She has been on multiple regimens. She has not been on any DMARD therapy for the past year. No joints have really flared up other than acute inflammatory attacks consistent with gout. She has now been on the Uloric for about 6 months with no attacks in the last 3 months. She does have colchicine available if needed for acute attacks but has not needed it for 3 months. She does have pain of a chronic nature mostly across the thumbs, , lower back and knees. She does take gabapentin and acetaminophen with some benefit. 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 Lymphedema Seropositive rheumatoid arthritis Surgical History H/O colonoscopy H/O cystoscopy H/O local excision of skin lesion History of bilateral carpal tunnel release History of esophagogastroduodenoscopy (EGD) Hx of hand surgery Hx of thumb surgery S/P lumpectomy, right breast Family History Father Throat cancer Mother Asthma Osteoarthritis Sister Breast cancer Social History Alcohol intake: never Patient Tobacco Use Status: Former Tobacco user Quit Date: 2014 Tobacco use type: Cigarette Current occupational status: retired 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 Endo Details: Negative for polyuria and polydypsia Emilio/Lymph Details: Negative for excessive bruising or bleeding. Physical Exam Vital Signs: Last Vital Signs Temp 97 F 01/05/23 13:14 Pulse 76 01/05/23 13:14 BP 92/54 L 01/05/23 13:14 Pulse Ox 96 01/05/23 13:14 Oxygen Delivery Method Room Air 01/05/23 13:14 BMI result Body Mass Index 32.9 APPEARANCE: Patient in no acute distress EYES no redness, pupils equal and reactive to light, eyelids normal. No temporal artery tenderness, redness or swelling. EXTREMITIES: No edema, no calf tenderness, normal peripheral pulses. NEURO: Oriented and alert x3. No focal weakness. Reflexes symmetric. Gait normal. SKIN: No inflammatory or neoplastic lesions. Normal color and turgor JOINT EXAM:.?? Cervical Spine:.? Mild discomfort with extremes of normal range of motion. No tenderness. Thoracic Spine:.? No scoliosis.? No tenderness on palpation. Lumbar Spine:.? Alignment normal.? Full range of motion with mild pain at the extremes of motion. No tenderness. Chest Wall:.? No tenderness, swelling, increased warmth or erythema. Hands: Right: Mild tenderness at the base of the thumb. There is also some bony swelling at the thumb IP in all the PIP joints, the 2nd 3rd a mildly tender. There is no tenderness or swelling in the MCPs. There is slight bony enlargement at the 2nd PIP without tenderness. There is no flexor tendon triggering, swelling, thenar atrophy or sensory loss. Left: Mild to moderate bony enlargement at the base of the thumb where there is mild tenderness. There is slight bony enlargement at the 2nd, 3rd and 4th PIP joints, the 3rd has mild tenderness. Elsewhere there is no tenderness or swelling. There is no flexor tendon triggering or swelling. There is slight thenar atrophy but no sensory loss. Wrists: Right:? Normal pain-free range of motion without tenderness, swelling, increased warmth or erythema. Left: Pain-free range of motion with some slight dorsal tenderness but no swelling. Elbows:. Normal pain-free range of motion without tenderness, swelling, increased warmth or erythema. Shoulders:.?? Full range of motion without pain. No tenderness, weakness, swelling, increased warmth or erythema. Hips:. Right:? Full range of motion with mild lumbar and buttock pain at the extremes of rotation. No groin pain with motion. Left: Pain-free range of motion. Hip bursa:.? No tenderness. Knees:.??. Left: Normal pain-free range of motion with slight patellofemoral crepitus but no effusion, tenderness, swelling, increased warmth or erythema.? Right: Mild pain with extremes of range of motion. Some mild medial tenderness without effusion, redness or warmth. Ankles:.? Normal pain-free range of motion without tenderness, swelling, increased warmth or erythema. Feet:.? There is mild 1st MTP bony enlargement. This is more prominent on the left where there is some hallux valgus deformity. There is some slight tenderness on the left. Elsewhere in the feet there is normal pain-free range of motion without tenderness, swelling, increased warmth or erythema. Tender points:.? No tenderness to digital palpation at the occiput, trapezius, second rib, lateral epicondyle, knees, greater trochanter and gluteal area bilaterally. ? Results Reviewed Results Reviewed: Laboratory Tests 07/30/22 07/30/22 07/30/22 12:59 12:59 12:59 WBC 7.6 Hct 39.0 ESR 36 H Creatinine Uric Acid 6.2 H C-Reactive Protein 1.65 H 09/01/22 09/15/22 13:40 14:44 WBC Hct ESR Creatinine 1.50 H Uric Acid 4.2 C-Reactive Protein [address] [address] XRay Report Signed Patient: Mora Manrique MR#: [id number] : 1950 Acct:[id number] Age/Sex: 71 / F ADM Date: 02/06/22 Loc: HO.LAB Attending Dr: July Carey NP Ordering Physician: July Carey NP Date of Service: 02/06/22 Procedure(s): XR knee RT 3V Accession Number(s): [id number] cc: July Carey NP~ EXAMINATION: XR KNEE, RIGHT? CLINICAL INFORMATION: M25.561 - Pain in right knee. COMPARISON: Radiographs right knee 11/16/2017? TECHNIQUE: 5 views of the right knee. FINDINGS: No fracture or dislocation or destructive process. There are degenerative changes greatest patellofemoral joint with joint narrowing and osteophytes. No erosive change. There is small benign cyst medial aspect medial femoral condyle similar to prior radiographs 2018. There is small suprapatellar effusion. Spurring at the quadriceps insertion patella and insertion patella tendon on the proximal anterior tibia again seen.? XR/XR knee RT 3V IMPRESSION: -Osteoarthritis, greatest patellofemoral joint. -Spurring extensor mechanism. Small suprapatellar effusion. ? Dictated By: Tremayne Gloria MD [address] [address] XRay Report Signed Patient: Mora Manrique MR#: [id number] : 1950 Acct:[id number] Age/Sex: 70 / F ADM Date: 09/18/20 Loc: HO.HOSX Attending Dr: Yasmin Cary MD Ordering Physician: Yasmin Cary MD Date of Service: 09/19/20 Procedure(s): XR hand RT min 3V Accession Number(s): [id number] cc: Yasmin Cary MD~ EXAMINATION: XR HAND, RIGHT XR HAND, LEFT CLINICAL INFORMATION: Bilateral hand pain.? COMPARISON: 06/14/2012? TECHNIQUE: 3 views of each hand.? FINDINGS: RIGHT HAND: At appears that the trapezium has been resected. No acute fracture or dislocation of the hand or wrist identified. There appear to be erosions involving the base of the 1st metacarpal as well as multiple carpal bones. There appear to be erosions involving the base of the 1st proximal phalanx as well as the head of the 1st proximal phalanx. There appears be erosion with some soft tissue prominence involving the head of the 3rd metacarpal. Small erosion is seen involving the base of the 4th proximal phalanx. There is some degenerative spurring present about the 1st interphalangeal joint as well as the 2nd proximal and distal interphalangeal joints. There appears to be some progression in erosive change compared to previous study. LEFT HAND: No acute fracture or dislocation is identified. There is degenerative change with joint space narrowing and marginal sclerosis and spurring about the 1st carpometacarpal joint. There appear to be a few small erosions involving the base of the 1st metacarpal, heads of the 2nd and 3rd metacarpals. There is some degenerative change with joint space narrowing and marginal spurring involving the 1st interphalangeal joint, the 3rd and 4th proximal interphalangeal joints, and the 1st metacarpophalangeal joint. There has been progression in disease since the previous study of 06/14/2012. XR/XR hand RT min 3V IMPRESSION: 1. 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 ? 2. Resection of the right trapezium.? Dictated By: PRATEEK LYNN MD Assessment & Plan Assessment & Plan (1) CKD (chronic kidney disease), stage III: Code(s): N18.30 - Chronic kidney disease, stage 3 unspecified (2) Osteoarthritis of hands, bilateral: Code(s): M19.041 - Primary osteoarthritis, right hand; M19.042 - Primary osteoarthritis, left hand (3) Osteoarthritis of right knee: Code(s): M17.11 - Unilateral primary osteoarthritis, right knee (4) Osteoarthritis of both feet: Code(s): M19.071 - Primary osteoarthritis, right ankle and foot; M19.072 - Primary osteoarthritis, left ankle and foot (5) Gout: Comment: Allopurinol-December 2021- March 2022 Uloric -March 2022- present. Code(s): M10.9 - Gout, unspecified Plan With current regimen there appears to be fairly good control of gout attacks. We will check another uric acid and creatinine today to assess the efficacy of the Uloric. Her exam again shows some osteoarthritis mostly involving the right knee, hands and feet. I do not see any synovitis that would suggest active rheumatoid arthritis. This makes me question the diagnosis made in the past of RA. However, it is possible that treatment in the past did control her disease and she is in a remittive or ?burnt out? phase of the RA. The recent inflammatory episodes seem to have been controlled with good control of her hyperuricemia. We will stay with the Uloric as above. She can continue to use acetaminophen for pains if needed. We might consider injection in the knee in the future if need be for the OA. I will repeat her inflammatory markers. Follow-up in 4 months. Orders: Orders Creatinine Today M10.9 - Gout, unspecified, N18.30 - Chronic kidney disease, stage 3 unspecified C Reactive Protein Today M10.9 - Gout, unspecified, N18.30 - Chronic kidney disease, stage 3 unspecified Uric Acid Today M10.9 - Gout, unspecified, N18.30 - Chronic kidney disease, stage 3 unspecified Complete Blood Count Auto Diff Today M10.9 - Gout, unspecified, N18.30 - Chronic kidney disease, stage 3 unspecified Erythrocyte Sedimentation Rate Today M10.9 - Gout, unspecified, N18.30 - Chronic kidney disease, stage 3 unspecified Coding Level of Care Code Est Pt Level 3 (87331) Diagnoses CKD (chronic kidney disease), stage III N18.30 Osteoarthritis of hands, bilateral M19.041; M19.042 Osteoarthritis of right knee M17.11 Osteoarthritis of both feet M19.071; M19.072 Gout M10.9
[2023-01-05 13:14] VITALS: BP 92/54; PULSE 76; TEMP 36.1; O2SAT 96; BMI 32.9
== END 2023-01-05 14:10 | disposition home or self-care (01) ==
PROVIDERS: PCP Registered Nurse; Visit Provider Internal Medicine Rheumatology
DX: N18.30 Chronic kidney disease, stage 3 unspecified (principal); M19.041 Primary osteoarthritis, right hand; M19.042 Primary osteoarthritis, left hand; M17.11 Unilateral primary osteoarthritis, right knee; M19.071 Primary osteoarthritis, right ankle and foot; M19.072 Primary osteoarthritis, left ankle and foot; M10.9 Gout, unspecified
CPT/HCPCS: 99213

== ENCOUNTER → 2023-01-05 13:08 | Outpatient (BNVA) | payer OTHER, SELFPAY | PROVIDERS: PCP Registered Nurse; Visit Provider Internal Medicine Rheumatology | DX: M05.9 Rheumatoid arthritis with rheumatoid factor, unspecified (principal); M19.071 Primary osteoarthritis, right ankle and foot; M19.072 Primary osteoarthritis, left ankle and foot; M19.041 Primary osteoarthritis, right hand; M19.042 Primary osteoarthritis, left hand; N18.30 Chronic kidney disease, stage 3 unspecified; M17.11 Unilateral primary osteoarthritis, right knee | CPT/HCPCS: 99212 ==

== ENCOUNTER 2023-01-08 11:44 | Outpatient (REF) | payer OTHER, SELFPAY ==
[2023-01-08 11:57] LABS: MANUAL DIFF FLAG NO
[2023-01-08 12:20] LABS: Basophils Absolute Auto 0.1 X10*3/uL (0.0-0.2); Basophils Percent Auto 0.7 % (0-2); Eosinophils Absolute Auto 0.3 X10*3/uL (0.0-0.4); Eosinophils Percent Auto 4.4 % (0-4); Hematocrit 38.2 % (37.0-47.0); Hemoglobin 12.5 g/dl (12.0-16.0); Imm Gran Abs Auto 0.02 X10*3/uL (0.00-0.03); Imm Gran Pct Auto 0.3 % (0.0-0.4); Lymphocytes Absolute Auto 2.1 X10*3/uL (1.2-4.9); Lymphocytes Percent Auto 28.2 % (20-40); Mean Corpuscular HGB Conc 32.7 g/dl (31.0-35.0); Mean Corpuscular Hemoglobin 28.5 pg (27.0-33.0); Mean Platelet Volume 9.9 fL (9.4-12.3); Monocytes Absolute Auto 0.5 X10*3/uL (0.1-1.2); Monocytes Percent Auto 7.2 % (2-11); Neutrophils Absolute Auto 4.4 x10*3/uL (2.0-8.3); Neutrophils Percent Auto 59.2 % (45-73); Platelet Count 260 X10*3/uL (160-400); Red Blood Count 4.39 X10*6/uL (4.20-5.50); White Blood Count 7.5 X10*3/uL (4.8-10.8)
[2023-01-08 13:03] LABS: Erythrocyte Sedimentation Rate 18 MM/HR (0-20)
[2023-01-08 13:10] LABS: C Reactive Protein 0.57 mg/dL (< or = 0.50); Estimated Glomerular Filt Rate 38
== END 2023-01-08 11:45 | disposition home or self-care (01) ==
LOC: HO.LAB 11:44
PROVIDERS: PCP Registered Nurse; Visit Provider Internal Medicine Rheumatology
DX: M10.9 Gout, unspecified (principal); N18.30 Chronic kidney disease, stage 3 unspecified
CPT/HCPCS: 36415; 82565; 84550; 85025; 85652; 86140

== ENCOUNTER 2023-01-31 13:02 | Emergency (ER) | payer OTHER, SELFPAY ==
--- NOTE | ~2023-01-31 | XR_ITS ---
EXAMINATION: XR CHEST CLINICAL INFORMATION: Cough and chest pain. COMPARISON: None available. TECHNIQUE: 2 views of the chest were obtained. FINDINGS: No significant abnormality is noted involving the heart, lungs, mediastinum, bony thorax or soft tissues. XR/XR chest 2V IMPRESSION: Unremarkable chest examination.
[2023-01-31 13:13] VITALS: BP 105/48; PULSE 81; RESP 22; TEMP 36.3; O2SAT 92; BMI 33.5
--- NOTE | 2023-01-31 13:14 | ECG_ITS ---
Test Reason : CHEST PAIN Blood Pressure : / mmHG Vent. Rate : 078 BPM Atrial Rate : 078 BPM P-R Int : 134 ms QRS Dur : 074 ms QT Int : 374 ms P-R-T Axes : 035 020 046 degrees QTc Int : 426 ms Normal sinus rhythm Normal ECG When compared with ECG of 19-DEC-2021 17:49, No significant change was found Referred By: Curtis Doherty Electronically Signed By:VEE LEON
--- NOTE | 2023-01-31 13:19 | ED_ITS ---
HPI - Chest Pain General Chief Complaint: Chest Pain Stated Complaint: SOB, tightness in chest Time Seen by Provider: 01/31/23 14:23 Source: patient and family (Daughter) Mode of arrival: ambulatory Limitations: no limitations History of Present Illness HPI narrative: A 72-year-old female with history of COPD no supplemental oxygen, came in for 3- 4 days of wheezing and chest tightness, nonproductive cough. Patient currently nonsmoker, no recent travel, no recent prolonged immobilization, no lower extremity swelling or tenderness, no history of DVT or PE. Patient stated that symptoms are typical to COPD exacerbation. Patient used her inhaler at home with no relief. Related Data Home Medications Medication Instructions Recorded Confirmed acetaminophen 650 mg 650 mg PO Q8H 02/25/20 01/05/23 tablet,extended release citalopram 40 mg tablet 20 mg PO DAILY 02/25/20 01/05/23 ipratropium 0.5 mg-albuterol 3 mg 3 ml inhalation QID PRN Wheezing 02/25/20 01/05/23 (2.5 mg base)/3 mL nebulization soln loratadine 10 mg tablet (Allergy 10 mg PO DAILY 02/25/20 01/05/23 Relief (loratadine)) montelukast 10 mg tablet 10 mg PO BEDTIME 02/25/20 01/05/23 simvastatin 20 mg tablet 20 mg PO DAILY 02/25/20 01/05/23 alcohol swabs (Alcohol Prep Pads) 0 pad topical BEDTIME 04/04/21 01/05/23 blood sugar diagnostic (FreeStyle #10 ea 04/04/21 01/05/23 Lite Strips) dapagliflozin propanediol 5 mg 5 mg PO DAILY 03/19/22 01/05/23 tablet ferrous gluconate 324 mg (37.5 mg 324 mg PO .every other day 10/09/22 01/05/23 iron) tablet albuterol sulfate 2.5 mg/3 mL 2.5 mg inhalation Q4H PRN wheezing 01/05/23 01/05/23 (0.083 %) solution for nebulization azelastine 137 mcg (0.1 %) nasal 1 spray intranasal BID 01/05/23 01/05/23 spray aerosol dulaglutide 0.75 mg/0.5 mL 0.75 mg subcut QWEEK 01/05/23 01/05/23 subcutaneous pen injector (Trulicity) lisinopril 20 1 tab PO QAM 01/05/23 01/05/23 mg-hydrochlorothiazide 12.5 mg tablet melatonin 10 mg capsule 10 mg PO BEDTIME PRN insomnia 01/05/23 01/05/23 Previous Rx's Medication Instructions Recorded gabapentin 300 mg capsule 300 mg PO BID #60 caps 01/08/21 cholecalciferol (vitamin D3) 25 25 mcg PO DAILY #90 caps 12/03/21 mcg (1,000 unit) capsule dexlansoprazole 60 mg 60 mg PO DAILY 30 days #30 caps 10/09/22 capsule,biphase delayed release (Dexilant) colchicine (gout) 0.6 mg tablet 0.6 mg PO DAILY #90 tabs 12/08/22 febuxostat 80 mg tablet 80 mg PO DAILY #90 tabs 01/12/23 prednisone 20 mg tablet 20 mg PO BID #10 tabs 01/31/23 Allergies Allergy/AdvReac Type Severity Reaction Status Date / Time latex [LATEX] Allergy Intermediate BLISTERS Verified 01/05/23 13:13 abatacept [From Orencia] Allergy Unknown Itching Verified 01/05/23 13:13 adalimumab [From Humira] Allergy dizziness Verified 01/05/23 13:13 aspirin AdvReac Intermediate abdominal Verified 01/05/23 13:13 pain Review of Systems 2 Review of Systems: All other systems are reviewed and are negative Constitutional: Reports as per HPI and Reports no additional constitutional complaints Eyes: Reports as per HPI and Reports no additional eye complaints Reports system reviewed and no additional complaints, except as documented Cardiovascular: Reports as per HPI and Reports no additional cardiovascular complaints Respiratory: Reports as per HPI and Reports no additional respiratory complaints Gastrointestinal: Reports as per HPI and Reports no additional gastrointestinal complaints Genitourinary: Reports no additional female genitourinary complaints Musculoskeletal: Reports no additional musculoskeletal complaints Skin/Breast: Reports system reviewed and no additional complaints, except as docu Psychiatric: Reports no additional psychiatric complaints Endocrine: Reports no additional endocrine complaints Hematologic/Lymphatic: Reports no additional hematologic/lymphatic complaints Allergic/Immunologic: Reports no additional allergic/immunologic complaints Reports system reviewed and no additional complaints, except as documented and Reports Abnormal speech present PMFSH Past Medical History Medical History Lymphedema COVID-19 vaccine administered Hx of cardiac murmur Depression Anemia Hx of osteopenia Hx of gout Diabetes Elevated cholesterol HTN (hypertension) COPD (chronic obstructive pulmonary disease) GERD (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 reflux disease) 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 Seropositive rheumatoid arthritis Asthma History of right breast cancer Surgical History Hx of hand surgery H/O cystoscopy Hx of thumb surgery H/O colonoscopy H/O local excision of skin lesion History of bilateral carpal tunnel release S/P lumpectomy, right breast History of esophagogastroduodenoscopy (EGD) Family History Family History Father Throat cancer Mother Asthma Osteoarthritis Sister Breast cancer Social History Social History Alcohol intake: never Patient Tobacco Use Status: Former Tobacco user Quit Date: 2014 Tobacco use type: Cigarette Advance Directives: No Current occupational status: retired 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 Blood pressure elevated. Heart rate normal. Respiratory rate normal. Temperature normal. Oxygen saturation normal. Appearance: Alert. Oriented X3. No acute distress. Head: Normal external exam. Normocephalic. Atraumatic. No Chacko signs noted. No raccoon eyes noted Eyes: PERRLA. EOMI. Conjunctiva and sclera normal. Eyelids normal. ENT: TM's Normal. Pharynx normal. Uvula midline. Moist mucous membranes. No trismus noted. No drooling noted. No muffled voice noted. Neck: Normal inspection. Neck supple. FROM. No adenopathy. Thyroid Normal. No meningeal signs. No neck mass noted. CVS: Normal heart rate and rhythm. Heart sound normal. No murmurs noted. Pulses normal throughout. Respiratory: No respiratory distress. Painless inspiration. Breath sounds normal. Diffuse expiratory wheezing with prolonged expiration and decrease air entry bilaterally, Chest nontender. No accessory muscle usage noted or decreased air movement noted. Abdomen: Soft and nontender. Bowel sounds normal in all 4 quadrants. No distention noted. No organomegaly noted. No visible injury noted. Back: No CVA tenderness. Full range of motion noted. Skin: Skin warm and dry. Normal skin color. Normal skin turgor. No rashes/lesions/lacerations noted. Extremities: No lower extremity edema. Extremities exhibit normal range of motion. Extremities nontender. Neuro: Oriented X 3. Cranial nerve exam: II-XII are grossly intact No motor deficit. No sensory deficit. Reflexes normal. Course Course Course Narrative: Patient complains of continuous chest pain for 1 week associated with productive cough and shortness of breath typical of her COPD/asthma Chest x-ray EKG and labs are ordered This rapid medical exam in triage pending full evaluation in the ER to follow imaging and lab results as well as history physical and dispo patient Reevaluation(s) Reevaluation #1: Acute asthma exacerbation, patient felt better after bronchodilator and prednisone therapy, patient had stable post ambulation pelvic symmetry of 92% on room air, patient feels better. Will discharge on prednisone, patient has enough albuterol inhaler and albuterol solution for the nebulizer. Time: 17:33 Medications Administered Discontinued Medications Generic Name Dose Route Start Last Admin Trade Name Freq PRN Reason Stop Dose Admin Albuterol Sulfate 7.5 mg 01/31/23 14:38 01/31/23 15:19 Albuterol Sulfate (0.083%) 2.5 Mg/3 Ml Vial.Neb INHALE 01/31/23 14:39 7.5 mg ONCE ONE Administration Albuterol/Ipratropium 3 ml 01/31/23 14:38 01/31/23 15:19 Albuterol/Iprat 2.5/0.5mg 3 Ml Ampul.Neb INHALE 01/31/23 14:39 3 ml ONCE ONE Administration Magnesium Sulfate 2 gm in 50 mls @ 25 mls/hr 01/31/23 14:38 01/31/23 15:21 Magnesium Sulfate/H2o IV 01/31/23 16:37 25 mls/hr ONCE ONE Administration Methylprednisolone Sodium Succinate 125 mg 01/31/23 14:38 01/31/23 15:50 Methylprednisolone Sod Succ 125 Mg/2 Ml Vial IVPUSH 01/31/23 14:39 125 mg ONCE ONE Administration Medical Decision Making Differential Diagnosis Differential Diagnoses: The differential diagnosis associated with the presentation includes (Pneumonia, pneumothorax, asthma exacerbation, bronchitis, electrolyte abnormality, severe anemia, viral infection.) Admission/Observation Consideration of admission/observation: Escalation of care including admission/observation considered Lab Data [facility] Lab Attestation statement: I reviewed the patient's lab results. 01/31/23 13:29 01/31/23 13:29 Labs: Lab Results 01/31/23 Range/Units 13:29 WBC 10.2 (4.8-10.8) X10*3/uL RBC 4.34 (4.20-5.50) X10*6/uL Hgb 12.6 (12.0-16.0) g/dl Hct 38.1 (37.0-47.0) % MCV 87.8 (80.0-98.0) fL MCH 29.0 (27.0-33.0) pg MCHC 33.1 (31.0-35.0) g/dl RDW 15.6 (11.0-16.0) % Plt Count 275 (160-400) X10*3/uL MPV 9.8 (9.4-12.3) fL Immature Gran % (Auto) 0.4 (0.0-0.4) % Neut % (Auto) 63.2 (45-73) % Lymph % (Auto) 25.8 (20-40) % Power % (Auto) 4.9 (2-11) % Eos % (Auto) 5.0 H (0-4) % Baso % (Auto) 0.7 (0-2) % Lymph # (Auto) 2.6 (1.2-4.9) X10*3/uL Power # (Auto) 0.5 (0.1-1.2) X10*3/uL Eos # (Auto) 0.5 H (0.0-0.4) X10*3/uL Baso # (Auto) 0.1 (0.0-0.2) X10*3/uL Abs Immat Gran (auto) 0.04 H (0.00-0.03) X10*3/uL Absolute Neuts (auto) 6.4 (2.0-8.3) x10*3/uL Absolute Nucleated RBC 0.000 (0.0-0.012) X10*3/uL Nucleated RBC % (auto) 0.0 (0.0-0.2) /100WBC PT 11.4 (11.1-13.3) SEC INR 0.9 (0.9-1.1) Sodium 141 (135-145) mmol/L Potassium 4.4 (3.3-5.1) mmol/L Chloride 112 H (96-108) mmol/L Carbon Dioxide 20 L (22-29) mmol/L Anion Gap 13 (12-20) BUN 24 H (9-16) mg/dL Creatinine 1.55 H (0.5-1.4) mg/dL Estim Creat Clear Calc 36.3 Estimated GFR 33 Random Glucose 213 H (60-115) mg/dL Calcium 10.0 (8.4-10.2) mg/dL Troponin I High Sens < 2.7 (<3.5-17.0) ng/L B-Natriuretic Peptide 57 (<100) pg/mL COVID-19 (LALO) Negative (Negative) COVID-19 Clin Com See Note Influenza Type A (JULES) Negative (Negative) Influenza Type B (JULES) Negative (Negative) Influenza A & B Note See Note Independent Interpretation I performed an independent interpretation of an: Plain X-Ray (Chest: No acute intrathoracic pathology.) Radiology Impression Discussion of test interpretation with radiology: I have reviewed the radiologist's reading. Chronic Conditions Patient?s care impacted by: Other (Asthma.) Discharge Plan Discharge Clinical Impression: Asthma exacerbation Patient Disposition: Home, Self-Care Instructions: Asthma (ED) Prescriptions: New prednisone 20 mg tablet 20 mg PO BID Qty: 10 0RF No Action gabapentin 300 mg capsule 300 mg PO BID Qty: 60 5RF cholecalciferol (vitamin D3) 25 mcg (1,000 unit) capsule 25 mcg PO DAILY Qty: 90 1RF dapagliflozin propanediol 5 mg tablet 5 mg PO DAILY colchicine (gout) 0.6 mg tablet 0.6 mg PO DAILY Qty: 90 1RF febuxostat 80 mg tablet 80 mg PO DAILY Qty: 90 3RF acetaminophen 650 mg tablet extended release 650 mg PO Q8H citalopram 40 mg tablet 20 mg PO DAILY loratadine [Allergy Relief (loratadine)] 10 mg tablet 10 mg PO DAILY montelukast 10 mg tablet 10 mg PO BEDTIME ipratropium-albuterol 0.5 mg-3 mg(2.5 mg base)/3 mL solution for nebulization 3 ml inhalation QID PRN (Reason: Wheezing) simvastatin 20 mg tablet 20 mg PO DAILY (DME) FreeStyle Lite Strips Strip See Rx Instructions Not Applicable TID Qty: 10 Rx Instructions: As directed alcohol swabs [Alcohol Prep Pads] Pads, Medicated 0 pad topical BEDTIME ferrous gluconate 324 mg (37.5 mg iron) tablet 324 mg PO .every other day dexlansoprazole [Dexilant] 60 mg capsule,biphase delayed releas 60 mg PO DAILY 30 Days Qty: 30 6RF Trulicity 0.75 mg/0.5 mL pen injector 0.75 mg subcut QWEEK albuterol sulfate 2.5 mg /3 mL (0.083 %) solution for nebulization 2.5 mg inhalation Q4H PRN (Reason: wheezing) azelastine 137 mcg (0.1 %) aerosol,spray 1 spray intranasal BID melatonin 10 mg capsule 10 mg PO BEDTIME PRN (Reason: insomnia) lisinopril-hydrochlorothiazide 20-12.5 mg tablet 1 tab PO QAM
[2023-01-31 13:43] LABS: MANUAL DIFF FLAG NO
[2023-01-31 13:48] LABS: Basophils Absolute Auto 0.1 X10*3/uL (0.0-0.2); Basophils Percent Auto 0.7 % (0-2); Eosinophils Absolute Auto 0.5 X10*3/uL (0.0-0.4); Hematocrit 38.1 % (37.0-47.0); Hemoglobin 12.6 g/dl (12.0-16.0); Imm Gran Abs Auto 0.04 X10*3/uL (0.00-0.03); Imm Gran Pct Auto 0.4 % (0.0-0.4); Lymphocytes Absolute Auto 2.6 X10*3/uL (1.2-4.9); Lymphocytes Percent Auto 25.8 % (20-40); Mean Corpuscular HGB Conc 33.1 g/dl (31.0-35.0); Mean Corpuscular Volume 87.8 fL (80.0-98.0); Mean Platelet Volume 9.8 fL (9.4-12.3); Monocytes Absolute Auto 0.5 X10*3/uL (0.1-1.2); Monocytes Percent Auto 4.9 % (2-11); Neutrophils Absolute Auto 6.4 x10*3/uL (2.0-8.3); Neutrophils Percent Auto 63.2 % (45-73); Platelet Count 275 X10*3/uL (160-400); Red Blood Count 4.34 X10*6/uL (4.20-5.50); Red Cell Distribution Width 15.6 % (11.0-16.0); White Blood Count 10.2 X10*3/uL (4.8-10.8)
[2023-01-31 13:50] LABS: INTERNATIONAL NORM RATIO 0.9 (0.9-1.1); Prothrombin Time 11.4 SEC (11.1-13.3)
[2023-01-31 13:56] LABS: COVID-19 Test Negative (Negative); IDNOW Serial# BCCEAD1C
[2023-01-31 13:58] LABS: IDNOW Serial# BCCEAD1C; Influenza A Negative (Negative); Influenza B2 Negative (Negative)
[2023-01-31 14:00] LABS: Anion Gap 13 (12-20); Blood Urea Nitrogen 24 mg/dL (9-16); Carbon Dioxide 20 mmol/L (22-29); Chloride 112 mmol/L (96-108); Creatinine Clr Calc Pharmacy 36.3; Estimated Glomerular Filt Rate 33; Glucose Random 213 mg/dL (60-115); Potassium 4.4 mmol/L (3.3-5.1); Sodium 141 mmol/L (135-145)
[2023-01-31 14:10] LABS: Troponin-I High Sensitivity < 2.7 ng/L (<3.5-17.0)
[2023-01-31 14:18] LABS: B Type Natriuretic Peptide 57 pg/mL (<100)
[2023-01-31 14:45] VITALS: BP 101/53; PULSE 72; RESP 17; O2SAT 92
[2023-01-31] MEDS: Albuterol/Iprat 2.5/0.5MG 3 ML AMPUL.NEB INHALE (15:19)
[2023-01-31] MEDS: Albuterol Sulfate (0.083%) 2.5 MG/3 ML VIAL.NEB 7.5 MG INHALE (15:19)
[2023-01-31 15:21] VITALS: PULSE 67; RESP 16; O2SAT 95
[2023-01-31] MEDS: Magnesium Sulfate/H2O 2 GM/50 ML PIGGYBACK IV (15:21)
[2023-01-31] MEDS: methylPREDNISolone Sod Succ 125 MG/2 ML VIAL IVPUSH (15:50)
== END 2023-01-31 17:40 | disposition home or self-care (01) ==
PROVIDERS: Physician Assistant Medical; Emergency Provider Emergency Medicine
DX: J45.901 Unspecified asthma with (acute) exacerbation (principal); R06.02 Shortness of breath; E11.9 Type 2 diabetes mellitus without complications; I10 Essential (primary) hypertension; E78.5 Hyperlipidemia, unspecified; J44.9 Chronic obstructive pulmonary disease, unspecified; Z99.81 Dependence on supplemental oxygen; Z87.891 Personal history of nicotine dependence; Z79.899 Other long term (current) drug therapy; Z20.822 Contact with and (suspected) exposure to COVID-19
CPT/HCPCS: 36415; 71046; 80048; 83880; 84484; 85025; 85610; 87502; 87635; 93005; 94640; 96365; 96366; 96375; 99284; J2930; J3475

== ENCOUNTER 2023-03-05 11:42 | Outpatient (REF) | payer OTHER, SELFPAY ==
--- NOTE | ~2023-03-05 | XR_ITS ---
EXAMINATION: XR CHEST CLINICAL INFORMATION: Cough for one week, persistent asthma with acute exacerbation COMPARISON: 01/31/2023 TECHNIQUE: 2 views of the chest were obtained. FINDINGS: vascularity. LUNGS: Lungs are clear. No pneumothorax is seen. BONES: Bony skeleton is intact. XR/XR chest 2V IMPRESSION: Unchanged Normal chest x-ray. Please note that chest x-ray has limited sensitivity for groundglass infiltrates.
== END 2023-03-05 11:43 | disposition home or self-care (01) ==
LOC: HO.HHCX 11:42
PROVIDERS: Visit Provider Internal Medicine
DX: J45.41 Moderate persistent asthma with (acute) exacerbation (principal)
CPT/HCPCS: 71046

== ENCOUNTER 2023-03-30 12:39 | Inpatient (IN) | payer OTHER, SELFPAY ==
[2023-03-30] VITALS (10 sets, daily range): BP systolic 108–126; BP diastolic 57–67; PULSE 71–120; RESP 18–122; TEMP 36.7–37.4; O2SAT 86–96; BMI 32.6; BMI 33.1
--- NOTE | ~2023-03-30 | XR_ITS ---
EXAMINATION: XR CHEST CLINICAL INFORMATION: Shortness of breath COMPARISON: Previous chest x-ray most recent February 2023 TECHNIQUE: 2 views of the chest were obtained. FINDINGS: The cardiac and mediastinal contours are normal. There is question of increased markings projecting over the lateral midlung/right posterior seventh rib. The lungs are otherwise clear. No pleural effusion or pneumothorax. Degenerative changes of the spine. XR/XR chest 2V IMPRESSION: Question small infiltrate in the right midlung
--- NOTE | 2023-03-30 13:46 | ED_ITS ---
HPI - General Adult General Chief complaint: Dyspnea Stated complaint: Asthma SOB Time Seen by Provider: 03/30/23 14:44 Source: patient, RN notes reviewed and old records reviewed Mode of arrival: ambulatory History of Present Illness HPI narrative: 72-year-old female with past medical history of lymphedema, depression, anemia, gout, diabetes, HLD, HTN, COPD, GERD, asthma, presenting to the ED complaining of dry cough, SOB, chest discomfort when coughing x1 week. Admits to using inhalers at home without relief. Reports recent prednisone use maybe a week ago, states as soon as finished course symptoms recurred. Denies fever, recent travel, sick contacts, pedal edema Related Data Home Medications Medication Instructions Recorded Confirmed acetaminophen 650 mg 650 mg PO Q8H 02/25/20 01/05/23 tablet,extended release citalopram 40 mg tablet 20 mg PO DAILY 02/25/20 01/05/23 ipratropium 0.5 mg-albuterol 3 mg 3 ml inhalation QID PRN Wheezing 02/25/20 01/05/23 (2.5 mg base)/3 mL nebulization soln loratadine 10 mg tablet (Allergy 10 mg PO DAILY 02/25/20 01/05/23 Relief (loratadine)) montelukast 10 mg tablet 10 mg PO BEDTIME 02/25/20 01/05/23 simvastatin 20 mg tablet 20 mg PO DAILY 02/25/20 01/05/23 blood sugar diagnostic (FreeStyle #10 ea 04/04/21 01/05/23 Lite Strips) dapagliflozin propanediol 5 mg 5 mg PO DAILY 03/19/22 01/05/23 tablet ferrous gluconate 324 mg (37.5 mg 324 mg PO .every other day 10/09/22 01/05/23 iron) tablet albuterol sulfate 2.5 mg/3 mL 2.5 mg inhalation Q4H PRN wheezing 01/05/23 01/05/23 (0.083 %) solution for nebulization azelastine 137 mcg (0.1 %) nasal 1 spray intranasal BID 01/05/23 01/05/23 spray aerosol dulaglutide 0.75 mg/0.5 mL 0.75 mg subcut QWEEK 01/05/23 01/05/23 subcutaneous pen injector ([facility]) lisinopril 20 1 tab PO QAM 01/05/23 01/05/23 mg-hydrochlorothiazide 12.5 mg tablet melatonin 10 mg capsule 10 mg PO BEDTIME PRN insomnia 01/05/23 01/05/23 fluticasone propionate 50 1 inh inhalation BID 03/30/23 mcg/actuation blister powder for inhalation (Flovent Diskus) ramelteon 8 mg tablet 8 mg PO BEDTIME 03/30/23 Previous Rx's Medication Instructions Recorded gabapentin 300 mg capsule 300 mg PO BID #60 caps 01/08/21 cholecalciferol (vitamin D3) 25 25 mcg PO DAILY #90 caps 12/03/21 mcg (1,000 unit) capsule dexlansoprazole 60 mg 60 mg PO DAILY 30 days #30 caps 10/09/22 capsule,biphase delayed release (Dexilant) colchicine (gout) 0.6 mg tablet 0.6 mg PO DAILY #90 tabs 12/08/22 febuxostat 80 mg tablet 80 mg PO DAILY #90 tabs 01/12/23 Allergies Allergy/AdvReac Type Severity Reaction Status Date / Time latex [LATEX] Allergy Intermediate BLISTERS Verified 01/05/23 13:13 abatacept [From Orencia] Allergy Unknown Itching Verified 01/05/23 13:13 adalimumab [From Humira] Allergy dizziness Verified 01/05/23 13:13 aspirin AdvReac Intermediate abdominal Verified 01/05/23 13:13 pain Review of Systems 2 Review of Systems: Constitutional: No Fever, No Chills ENT/Mouth: No Ear Pain, + Nasal Congestion, No Sinus Pain, No Hoarseness, + sore throat, +Rhinorrhea, No Swallowing Difficulty Cardiovascular: + Chest Pain w/cough, + SOB Respiratory: + Cough, No Sputum, + Wheezing Gastrointestinal: No Nausea, No Vomiting, No Abdominal pain Musculoskeletal: No joint pain, No Myalgias, No Joint Swelling Skin: No Skin Lesions, No rash Neuro: No Weakness, No Numbness, No Paresthesias Yes all other systems are reviewed and are negative Constitutional: Constitutional: Reports as per [facility] Past Medical History Attestation statement: The following information was validated with the patient. Source: old records reviewed Medical History Lymphedema COVID-19 vaccine administered Hx of cardiac murmur Depression Anemia Hx of osteopenia Hx of gout Diabetes Elevated cholesterol HTN (hypertension) COPD (chronic obstructive pulmonary disease) GERD (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 reflux disease) intermediate systemic steroid user Seropositive rheumatoid arthritis Asthma History of right breast cancer Surgical History Hx of hand surgery H/O cystoscopy Hx of thumb surgery H/O colonoscopy H/O local excision of skin lesion History of bilateral carpal tunnel release S/P lumpectomy, right breast History of esophagogastroduodenoscopy (EGD) Family History Family History Father Throat cancer Mother Asthma Osteoarthritis Sister Breast cancer Social History Social History Alcohol intake: never Patient Tobacco Use Status: Former Tobacco user Quit Date: 2014 Tobacco use type: Cigarette Advance Directives: No Advance Directives Information Provided: No Current occupational status: retired 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 Physical Exam ED Vital Signs: Vital Signs - 24 hr 03/30/23 13:46 03/30/23 14:03 03/30/23 15:16 Temperature 98.0 F Pulse Rate 88 71 87 Respiratory Rate 22 H 20 Blood Pressure 108/67 Pulse Oximetry 92 Oxygen Delivery Method Room Air Oxygen Flow Rate 03/30/23 15:45 03/30/23 15:45 03/30/23 16:00 Temperature 99.3 F Pulse Rate 114 H 111 H Respiratory Rate Blood Pressure Pulse Oximetry 91 L 86 L 90 L Oxygen Delivery Method Room Air Room Air Nasal Cannula Oxygen Flow Rate 2 03/30/23 16:07 03/30/23 16:53 Temperature Pulse Rate 105 H Respiratory Rate 122 H 20 Blood Pressure Pulse Oximetry 96 Oxygen Delivery Method Nasal Cannula Oxygen Flow Rate 3 BMI result Body Mass Index 32.6 Const General: cooperative, healthy appearing and no acute distress Orientation/consciousness: patient oriented x3 Limitations: no limitations HENMT Head: Yes normal to inspection and Yes atraumatic Ears: hearing grossly normal bilaterally General nose exam: Normal external nose present Face and sinus: Yes normal facial exam Mouth: Normal oral and palatal mucosa present Eyes General: appearance normal, both eyes and all related structures EOM: EOMs intact bilaterally Neck Neck: Yes normal visual inspection and Yes no meningeal signs Resp Effort & Inspection: normal respiratory effort, Actively coughing Quality: actively coughing and no respiratory distress Auscultation: wheezes expiratory wheezes, inspiratory wheezes and throughout Cardio Rate: regular rate Heart sounds: S1 normal heart sound present and S2 normal heart sound present Skin Rashes: no rashes Wounds: no wounds Neuro General: patient oriented x3, tone normal and no meningeal signs Cranial nerves: Yes CN's II-XII intact bilaterally Gait exam (Neuro): Normal gait present Extrem General: Yes normal to inspection and Yes no pedal edema Course Course Course Narrative: RME- 9-year-old female presents for evaluation shortness of breath. She has a history of asthma and has been using inhalers without any improvement. She reports that she was last on prednisone about 3 weeks ago. She has wheezing on exam. Plan for chest x-ray, bronchodilator protocol and viral swabs. -1533--mild leukocytosis of 12.0 XR chest 2V IMPRESSION: Question small infiltrate in the right midlung > still low suspicion for severe sepsis, tachypnea likely from persistent coughing, however will obtain lactic/blood cultures and give IV Rocephin -1556--chronic renal dysfunction, at patient's baseline -1605--patient dropped to 86% on room air > 92% on 3 L NC > IV magnesium ordered. Plan will be for admission -1553--lactic elevated to 2.2 > likely from albuterol use and not severe sepsis. Medications Administered Generic Name Dose Route Start Last Admin Trade Name Freq PRN Reason Stop Dose Admin Magnesium Sulfate 2 gm in 50 mls @ 25 mls/hr 03/30/23 16:05 03/30/23 16:10 Magnesium Sulfate/H2o IV 03/30/23 18:04 25 mls/hr ONCE ONE Administration Discontinued Medications Generic Name Dose Route Start Last Admin Trade Name Freq PRN Reason Stop Dose Admin Albuterol Sulfate 8 puff 03/30/23 13:57 03/30/23 14:05 Albuterol Sulfate 90 Mcg 8 Gm Inhaler INHALE 03/30/23 13:58 8 puff ONCE ONE Administration Benzonatate 100 mg 03/30/23 14:57 03/30/23 15:21 Benzonatate 100 Mg Capsule PO 03/30/23 14:58 100 mg ONCE ONE Administration Albuterol Sulfate 2.5 mg/ 0 mg 03/30/23 15:08 03/30/23 15:16 Albuterol/Ipratropium 3 ml INHALE 03/30/23 15:09 5 dose ONCE ONE Administration Albuterol Sulfate 2.5 mg/ 0 mg 03/30/23 16:39 03/30/23 16:52 Albuterol/Ipratropium 3 ml INHALE 03/30/23 16:40 2.5 dose ONCE ONE Administration Hydrocodone Bit/Homatropine Methylb 5 ml 03/30/23 14:57 03/30/23 15:21 Hydrocodone/Homat 5/1.5/5 Ml 5 Ml Syrup PO 03/30/23 14:58 5 ml ONCE ONE Administration Ceftriaxone Sodium 1 gm/ 50 mls @ 100 mls/hr 03/30/23 15:54 03/30/23 16:43 Sodium Chloride IV 03/30/23 16:23 Infused ONCE ONE Infusion Sodium Chloride 500 mls @ 999 mls/hr 03/30/23 16:15 03/30/23 16:15 Ns IV 03/30/23 16:45 999 mls/hr .Q31M OPAL Administration Methylprednisolone Sodium Succinate 125 mg 03/30/23 14:55 03/30/23 15:21 Methylprednisolone Sod Succ 125 Mg/2 Ml Vial IVPUSH 03/30/23 14:56 125 mg ONCE ONE Administration Medical Decision Making Medical Decision Making MDM Narrative: 72-year-old female with past medical history of lymphedema, depression, anemia, gout, diabetes, HLD, HTN, COPD, GERD, asthma, presenting to the ED complaining of dry cough, SOB, chest discomfort when coughing x1 week. On exam initially tachypneic, satting 92% on room air, diffuse inspiratory and expiratory wheeze noted. No pedal edema. Concern for viral illness vs asthma/COPD exacerbation vs pneumonia vs bronchitis. Lower suspicion for ACS/PE or CHF. Low suspicion for severe sepsis Plan: EKG, Labs, CXR, viral testing, ED bronchodilator protocol, IV Solu- Medrol, re-evaluate Please refer to course for remaining clinical decision making, interpretation of labs/imaging results, and discussions with consultants and/or family members. Differential Diagnosis Differential Diagnoses: The differential diagnosis associated with the presentation includes As above Admission/Observation Consideration of admission/observation: Escalation of care including admission/observation considered Consult Healthcare Provider Management of the patient was discussed with: Hospitalist Lab Data MDM Lab Attestation statement: I reviewed the patient's lab results. 03/30/23 15:12 03/30/23 15:12 Labs: Lab Results 03/30/23 03/30/23 03/30/23 Range/Units 14:41 15:12 15:54 WBC 12.0 H (4.8-10.8) X10*3/uL RBC 4.52 (4.20-5.50) X10*6/uL Hgb 13.1 (12.0-16.0) g/dl Hct 40.2 (37.0-47.0) % MCV 88.9 (80.0-98.0) fL MCH 29.0 (27.0-33.0) pg MCHC 32.6 (31.0-35.0) g/dl RDW 14.9 (11.0-16.0) % Plt Count 312 (160-400) X10*3/uL MPV 9.5 (9.4-12.3) fL Immature Gran % (Auto) 0.3 (0.0-0.4) % Neut % (Auto) 70.6 (45-73) % Lymph % (Auto) 19.0 L (20-40) % [place] % (Auto) 6.0 (2-11) % Eos % (Auto) 3.8 (0-4) % Baso % (Auto) 0.3 (0-2) % Lymph # (Auto) 2.3 (1.2-4.9) X10*3/uL [place] # (Auto) 0.7 (0.1-1.2) X10*3/uL Eos # (Auto) 0.5 H (0.0-0.4) X10*3/uL Baso # (Auto) 0.0 (0.0-0.2) X10*3/uL Abs Immat Gran (auto) 0.03 (0.00-0.03) X10*3/uL Absolute Neuts (auto) 8.5 H (2.0-8.3) x10*3/uL Absolute Nucleated RBC 0.000 (0.0-0.012) X10*3/uL Nucleated RBC % (auto) 0.0 (0.0-0.2) /100WBC Sodium 139 (135-145) mmol/L Potassium 4.4 (3.3-5.1) mmol/L Chloride 107 (96-108) mmol/L Carbon Dioxide 19 L (22-29) mmol/L Anion Gap 17 (12-20) BUN 25 H (9-16) mg/dL Creatinine 1.49 H (0.5-1.4) mg/dL Estim Creat Clear Calc 38.7 Estimated GFR 35 Random Glucose 138 H (60-115) mg/dL Lactic Acid 2.2 H* (0.5-2.0) mmol/L Calcium 9.7 (8.4-10.2) mg/dL Troponin I High Sens < 2.7 (<3.5-17.0) ng/L COVID-19 (LALO) Negative (Negative) COVID-19 Clin Com See Note Independent Interpretation I performed an independent interpretation of an: EKG (My interpretation EKG sinus tachycardia rate of 114. Pr interval 132. QTC 485. No significant change when compared to prior. No STEMI) and Plain X-Ray Radiology Impression Discussion of test interpretation with radiology: I have reviewed the radiologist's reading. Independent Historian Clinical information obtained from an independent historian. History obtained from or confirmed by: Other (son) External Record Review External record reviewed: Inpatient record, Office record, Outpatient record, Prior outpatient labs, Prior outpatient radiology, Primary care record and Outside ED record Tests considered The following testing was considered but not selected: As above Prescription Management I considered prescription management with: Antibiotic Chronic Conditions Patient?s care impacted by: Hypertension and Other (Asthma/COPD, CKD) Critical Care Time Critical Care Time Critical Care Time: Yes Total Critical Care Time: 45 Attestation: I have personally provided critical care time exclusive of time spent on separately billable procedures. Time includes review of lab data, radiology results, discussion with consultants, and monitoring for potential decompensation. Intervention performed as documented. Discharge Plan Discharge Clinical Impression: Acute exacerbation of COPD with asthma Patient Disposition: Admitted As Inpatient
[2023-03-30] MEDS: Albuterol Sulfate 90 MCG 8 GM INHALER 8 PUFF INHALE (14:05)
[2023-03-30 15:05] LABS: COVID-19 Test Negative (Negative); IDNOW Serial# 55D5AD1C
--- NOTE | 2023-03-30 15:12 | ECG_ITS ---
Test Reason : SOB Blood Pressure : / mmHG Vent. Rate : 114 BPM Atrial Rate : 114 BPM P-R Int : 132 ms QRS Dur : 070 ms QT Int : 352 ms P-R-T Axes : 056 021 061 degrees QTc Int : 485 ms Sinus tachycardia Possible Left atrial enlargement Nonspecific ST abnormality Abnormal ECG When compared with ECG of 31-JAN-2023 13:20, Heart rate has increased ST more depressed Referred By: Ashwini Kenny Electronically Signed By:ROBERT ENRIQUE MD
[2023-03-30] MEDS: Albuterol Sulfate 2.5 MG, Albuterol/Iprat 2.5/0.5MG 3 ML 3 ML INHALE ×2 (15:16→16:52)
[2023-03-30] MEDS: methylPREDNISolone Sod Succ 125 MG/2 ML VIAL IVPUSH (15:21)
[2023-03-30] MEDS: Benzonatate 100 MG CAPSULE PO (15:21)
[2023-03-30] MEDS: HYDROcodone/Homat 5/1.5/5 ML 5 ML SYRUP PO (15:21)
[2023-03-30 15:22] LABS: MANUAL DIFF FLAG NO
[2023-03-30 15:24] LABS: Basophils Percent Auto 0.3 % (0-2); Eosinophils Absolute Auto 0.5 X10*3/uL (0.0-0.4); Eosinophils Percent Auto 3.8 % (0-4); Hematocrit 40.2 % (37.0-47.0); Hemoglobin 13.1 g/dl (12.0-16.0); Imm Gran Abs Auto 0.03 X10*3/uL (0.00-0.03); Imm Gran Pct Auto 0.3 % (0.0-0.4); Lymphocytes Absolute Auto 2.3 X10*3/uL (1.2-4.9); Mean Corpuscular HGB Conc 32.6 g/dl (31.0-35.0); Mean Corpuscular Volume 88.9 fL (80.0-98.0); Mean Platelet Volume 9.5 fL (9.4-12.3); Monocytes Absolute Auto 0.7 X10*3/uL (0.1-1.2); Neutrophils Absolute Auto 8.5 x10*3/uL (2.0-8.3); Neutrophils Percent Auto 70.6 % (45-73); Platelet Count 312 X10*3/uL (160-400); Red Blood Count 4.52 X10*6/uL (4.20-5.50); Red Cell Distribution Width 14.9 % (11.0-16.0)
--- NOTE | 2023-03-30 15:24 | PC.NURSE ---
pt receiving breathing treatment from RT. 20gIV placed in left AC w/o complications - labs drawn and sent to lab. medications administered per provider order. family bedside.
--- NOTE | 2023-03-30 15:37 | PC.NURSE ---
tech bedside performing ekg.
[2023-03-30 15:46] LABS: Anion Gap 17 (12-20); Blood Urea Nitrogen 25 mg/dL (9-16); Calcium 9.7 mg/dL (8.4-10.2); Carbon Dioxide 19 mmol/L (22-29); Chloride 107 mmol/L (96-108); Creatinine Clr Calc Pharmacy 38.7; Estimated Glomerular Filt Rate 35; Glucose Random 138 mg/dL (60-115); Potassium 4.4 mmol/L (3.3-5.1); Sodium 139 mmol/L (135-145)
--- NOTE | 2023-03-30 15:55 | PC.NURSE ---
labs drawn and sent to lab by [facility].
[2023-03-30 16:00] LABS: Troponin-I High Sensitivity < 2.7 ng/L (<3.5-17.0)
[2023-03-30] MEDS: Magnesium Sulfate/H2O 2 GM/50 ML PIGGYBACK IV (16:10)
[2023-03-30] MEDS: cefTRIAXone sodium 1 GM in 0.9 % Sodium Chloride 50 ML IV (16:10)
[2023-03-30] MEDS: 0.9 % Sodium Chloride 500 ML 999 ML IV (16:15)
--- NOTE | 2023-03-30 16:25 | PC.NURSE ---
pt O2 dropped to 86% on RA - pt repositioned upright but oxygen levels did not improve. pt displays w/ no SOB/WOB at this time. pt put on 3L via NC for comfort. currently satting at 94% on 3L via NC. medication administered per provider order. family bedside.
--- NOTE | 2023-03-30 16:28 | P.HPHOSP_ITS ---
History of Present Illness Date of Service: 03/30/23 Chief Complaint: SOB 72-year-old women with past medical history of lymphedema, depression, anemia, gout, diabetes, HLD, HTN, COPD, GERD, asthma, presenting to the ED complaining of dry cough, SOB, chest discomfort with coughing x1 week. Admits to using inhalers at home without relief. Reports recent prednisone use a week ago, states as soon as finished course symptoms recurred. Denies fever, recent travel, sick contacts, pedal edema. reported sob and wheezing. In the ED, patient received albuterol, Solu-Medrol, cough suppressant, Augmentin azithromycin, Rocephin. She will be admitted for further management and treatment of acute hypoxic respiratory failure secondary to COPD exacerbation and community-acquired pneumonia. Review of Systems 2 Review of Systems: Denies any recent fever chills or decrease in appetite respiratory see HPI cardiovascular denies chest pain gastrointestinal denies any dysphagia abdominal pain nausea vomiting or diarrhea genitourinary denies any dysuria frequency or hematuria musculoskeletal denies any joint pain or swelling neuropsych denies any weakness or seizures all other systems reviewed are negative [facility] Medical History Lymphedema COVID-19 vaccine administered Hx of cardiac murmur Depression Anemia Hx of osteopenia Hx of gout Diabetes Elevated cholesterol HTN (hypertension) COPD (chronic obstructive pulmonary disease) GERD (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 reflux disease) M[facility] systemic steroid user Seropositive rheumatoid arthritis Asthma History of right breast cancer Family History Father Throat cancer Mother Asthma Osteoarthritis Sister Breast cancer Surgical History Hx of hand surgery H/O cystoscopy Hx of thumb surgery H/O colonoscopy H/O local excision of skin lesion History of bilateral carpal tunnel release S/P lumpectomy, right breast History of esophagogastroduodenoscopy (EGD) Social History Household Members: None Housing: Apartment Do you presently have visiting nurse or other home services: No Unable to assess alcohol history related to: Unknown Alcohol intake: never Patient Tobacco Use Status: Former Tobacco user Quit Date: 2014 Tobacco use type: Cigarette Smoked in Last 30 Days: No e-Cigarette/Vaping Use: Never Used Use of substances other than those prescribed or required for medical reasons: No Currently Displaying Signs/Symptoms of Drug Intoxication Withdrawal: No Advance Directives: No Advance Directives Information Provided: No Nutrition Risks: No Nutritional Risk Patient : No service: No Current occupational status: retired 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 Meds Allergies Allergy/AdvReac Type Severity Reaction Status Date / Time latex [LATEX] Allergy Intermediate BLISTERS Verified 01/05/23 13:13 abatacept [From Orencia] Allergy Unknown Itching Verified 01/05/23 13:13 adalimumab [From Humira] Allergy dizziness Verified 01/05/23 13:13 aspirin AdvReac Intermediate abdominal Verified 01/05/23 13:13 pain Active Medications: Current Medications Magnesium Sulfate (Magnesium Sulfate/H2o) 2 gm in 50 mls @ 25 mls/hr IV ONCE ONE Stop: 03/30/23 18:04 Last Admin: 03/30/23 16:10 Dose: 25 mls/hr Sodium Chloride (Ns) 500 mls @ 999 mls/hr IV .Q31M OPAL Stop: 03/30/23 16:45 Last Admin: 03/30/23 16:15 Dose: 999 mls/hr Home Medications Medication Instructions Recorded Confirmed Last Taken Type acetaminophen 650 mg 650 mg PO Q8H PRN Pain 02/25/20 03/30/23 03/29/23 History tablet,extended release citalopram 40 mg tablet 20 mg PO DAILY 02/25/20 03/30/23 03/29/23 History ipratropium 0.5 mg-albuterol 3 mg 3 ml inhalation QID PRN Wheezing 02/25/20 03/30/23 Unknown History (2.5 mg base)/3 mL nebulization soln loratadine 10 mg tablet (Allergy 10 mg PO DAILY 02/25/20 03/30/23 03/29/23 History Relief (loratadine)) montelukast 10 mg tablet 10 mg PO BEDTIME 02/25/20 03/30/23 03/29/23 History simvastatin 20 mg tablet 20 mg PO DAILY 02/25/20 03/30/23 03/29/23 History blood sugar diagnostic ([facility] #10 ea 04/04/21 01/05/23 Unknown History Lite Strips) dapagliflozin propanediol 5 mg 5 mg PO DAILY 03/19/22 03/30/23 03/29/23 History tablet ferrous gluconate 324 mg (37.5 mg 324 mg PO Q48H 10/09/22 03/30/23 03/29/23 History iron) tablet albuterol sulfate 2.5 mg/3 mL 2.5 mg inhalation Q4H PRN wheezing 01/05/23 03/30/23 Unknown History (0.083 %) solution for nebulization azelastine 137 mcg (0.1 %) nasal 1 spray intranasal BID PRN 01/05/23 03/30/23 Unknown History spray aerosol Congestion dulaglutide 0.75 mg/0.5 mL 0.75 mg subcut TH 01/05/23 03/30/23 03/26/23 History subcutaneous pen injector ([facility]) lisinopril 20 1 tab PO QAM 01/05/23 03/30/23 03/29/23 History mg-hydrochlorothiazide 12.5 mg tablet colchicine (gout) 0.6 mg tablet 0.6 mg PO DAILY PRN GOUT FLARE 03/30/23 03/30/23 Unknown History fluticasone propionate 50 1 inh inhalation BID 03/30/23 03/30/23 03/29/23 History mcg/actuation blister powder for inhalation (Flovent Diskus) ramelteon 8 mg tablet 8 mg PO BEDTIME 03/30/23 03/30/23 03/29/23 History Physical Exam 2 Vital Signs and Narrative: Vital Signs: Last Vital Signs Temp 99.3 F 03/30/23 15:45 Pulse 111 H 03/30/23 16:00 Resp 122 H 03/30/23 16:07 BP 108/67 03/30/23 13:46 Pulse Ox 96 03/30/23 16:07 O2 Del Method Nasal Cannula 03/30/23 16:07 O2 Flow Rate 3 03/30/23 16:07 BMI result Body Mass Index 32.6 Appearing in no acute distress head is normocephalic atraumatic eyes pupils are PERRLA sclera is anicteric mouth throat mucous membranes are intact and moist neck is supple no lymphadenopathy, no JVD noted lung sounds exp wheezes heart regular rate rhythm, clear S1, S2 positive bowel sounds, abdomen is soft, nontender neuro patient is alert x3, no focal deficits Results Labs 03/31/23 05:51 03/31/23 05:51 Labs: Laboratory Results - last 24 hr 03/30/23 03/30/23 14:41 15:12 MCV 88.9 MCH 29.0 MCHC 32.6 RDW 14.9 Plt Count 312 MPV 9.5 Immature Gran % (Auto) 0.3 Neut % (Auto) 70.6 Lymph % (Auto) 19.0 L [place] % (Auto) 6.0 Eos % (Auto) 3.8 Baso % (Auto) 0.3 Lymph # (Auto) 2.3 [place] # (Auto) 0.7 Eos # (Auto) 0.5 H Baso # (Auto) 0.0 Abs Immat Gran (auto) 0.03 Absolute Neuts (auto) 8.5 H Absolute Nucleated RBC 0.000 Nucleated RBC % (auto) 0.0 Anion Gap 17 Estim Creat Clear Calc 38.7 Estimated GFR 35 Random Glucose 138 H Calcium 9.7 COVID-19 ([facility]) Negative COVID-19 Clin Com See Note Imaging Radiologist's Impressions: Impressions Chest X-Ray 03/30/23 14:38 IMPRESSION: Question small infiltrate in the right midlung Assessment and Plan (1) Acute exacerbation of COPD with asthma: Status: Acute Plan 72 year old women admitted with acute hypoxic respiratory failure secondary to COPD exacerbation Acute hypoxic respiratory failure secondary to COPD exacerbation and CAP Start IV solumedrol, scheduled duonebs supplemental oxygen Start Rocephin and Azithromycin for CAP Follow blood cx SUNNI on CKD 3 IV fluids monitor BMP Hypertension continue Home medications stable blood pressure Mental health continue home medications Non insulin-dependent diabetes mellitus Will add sliding scale, ADA diet DVT prophylaxis with heparin Full code Patient will need 2 inpatient midnights for tx of acute hypoxic resp failure secondary to COPD exacerbation and community-acquired pneumonia requiring IV antibiotics Quality Stroke Does the patient have a stroke diagnosis?: No VTE Prior VTE?: No VTE Risk Level:: Medical - moderate - high VTE Device Contraindication: N/A - Device Ordered VTE Drug Contraindication: Treatment Not Indicated
[2023-03-30 16:53] LABS: Lactic Acid 2.2 mmol/L (0.5-2.0)
--- NOTE | 2023-03-30 17:02 | P.HPHOSP_ITS ---
History of Present Illness Date of Service: 03/30/23 Chief Complaint: shortness of breath 72 year old female non somoker, history of asthma presenting with progressive dyspnea over a week, asssociated with dry cough, no fever. She has been using inhalers at home without relief. Her O2 was as low as 86 on room air, slightly tachycardiac, CXR. Question small infiltrate in the right midlung. ED treatment : IV steroid, bronchodilators by Neb, IV magnesium. 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 Seropositive rheumatoid arthritis Asthma History of right breast cancer Family History Father Throat cancer Mother Asthma Osteoarthritis Sister Breast cancer Surgical History Hx of hand surgery H/O cystoscopy Hx of thumb surgery H/O colonoscopy H/O local excision of skin lesion History of bilateral carpal tunnel release S/P lumpectomy, right breast History of esophagogastroduodenoscopy (EGD) Social History Alcohol intake: never Patient Tobacco Use Status: Former Tobacco user Quit Date: 2014 Tobacco use type: Cigarette Current occupational status: retired 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 Meds Allergies Allergy/AdvReac Type Severity Reaction Status Date / Time latex [LATEX] Allergy Intermediate BLISTERS Verified 01/05/23 13:13 abatacept [From Orencia] Allergy Unknown Itching Verified 01/05/23 13:13 adalimumab [From Humira] Allergy dizziness Verified 01/05/23 13:13 aspirin AdvReac Intermediate abdominal Verified 01/05/23 13:13 pain Active Medications: Current Medications Albuterol Sulfate (Albuterol Sulfate (0.083%) 2.5 Mg/3 Ml Vial.Neb) 2.5 mg INHALE RQ4H WHILE AWAKE [facility] Magnesium Sulfate (Magnesium Sulfate/H2o) 2 gm in 50 mls @ 25 mls/hr IV ONCE ONE Stop: 03/30/23 18:04 Last Admin: 03/30/23 16:10 Dose: 25 mls/hr Ceftriaxone Sodium 1 gm/ (Sodium Chloride) 50 mls @ 100 mls/hr IV Q24H [facility] Azithromycin 500 mg/ Sodium (Chloride) 250 mls @ 125 mls/hr IV Q24H [facility] Methylprednisolone Sodium Succinate (Methylprednisolone Sod Succ 40 Mg/Ml Vial) 40 mg IVPUSH Q8H [facility] Home Medications Medication Instructions Recorded Confirmed Last Taken Type acetaminophen 650 mg 650 mg PO Q8H PRN Pain 02/25/20 03/30/23 03/29/23 History tablet,extended release citalopram 40 mg tablet 20 mg PO DAILY 02/25/20 03/30/23 03/29/23 History ipratropium 0.5 mg-albuterol 3 mg 3 ml inhalation QID PRN Wheezing 02/25/20 03/30/23 Unknown History (2.5 mg base)/3 mL nebulization soln loratadine 10 mg tablet (Allergy 10 mg PO DAILY 02/25/20 03/30/23 03/29/23 History Relief (loratadine)) montelukast 10 mg tablet 10 mg PO BEDTIME 02/25/20 03/30/23 03/29/23 History simvastatin 20 mg tablet 20 mg PO DAILY 02/25/20 03/30/23 03/29/23 History blood sugar diagnostic (FreeStyle #10 ea 04/04/21 01/05/23 Unknown History Lite Strips) dapagliflozin propanediol 5 mg 5 mg PO DAILY 03/19/22 03/30/23 03/29/23 History tablet ferrous gluconate 324 mg (37.5 mg 324 mg PO Q48H 10/09/22 03/30/23 03/29/23 History iron) tablet albuterol sulfate 2.5 mg/3 mL 2.5 mg inhalation Q4H PRN wheezing 01/05/23 03/30/23 Unknown History (0.083 %) solution for nebulization azelastine 137 mcg (0.1 %) nasal 1 spray intranasal BID PRN 01/05/23 03/30/23 Unknown History spray aerosol Congestion dulaglutide 0.75 mg/0.5 mL 0.75 mg subcut TH 01/05/23 03/30/23 03/26/23 History subcutaneous pen injector (Trulicity) lisinopril 20 1 tab PO QAM 01/05/23 03/30/23 03/29/23 History mg-hydrochlorothiazide 12.5 mg tablet colchicine (gout) 0.6 mg tablet 0.6 mg PO DAILY PRN GOUT FLARE 03/30/23 03/30/23 Unknown History fluticasone propionate 50 1 inh inhalation BID 03/30/23 03/30/23 03/29/23 History mcg/actuation blister powder for inhalation (Flovent Diskus) ramelteon 8 mg tablet 8 mg PO BEDTIME 03/30/23 03/30/23 03/29/23 History Physical Exam 2 Vital Signs and Narrative: Vital Signs: Last Vital Signs Temp 99.3 F 03/30/23 15:45 Pulse 105 H 03/30/23 16:53 Resp 20 03/30/23 16:53 BP 108/67 03/30/23 13:46 Pulse Ox 96 03/30/23 16:07 O2 Del Method Nasal Cannula 03/30/23 16:07 O2 Flow Rate 3 03/30/23 16:07 BMI result Body Mass Index 32.6 Const: Other: Constitutional: Alert, in no distress, overweight. Mental Status: Oriented to person, place and time. Eyes: Pupils are equal, round and reactive to light. Ear, Nose and Throat: Oropharynx clear, mucous membranes moist. Ears and nose without eformities. Respiratory: hoda wheeze, no accessory muscle use Cardiovascular: S1 S2 regular. No murmurs, rubs or gallops. Gastrointestinal: Abdomen soft, non-tender, non-distended. Normal bowel sounds.? Neurologic: Cranial nerves II-XII grossly intact. No focal neurological deficits. Moves all extremities spontaneously.? Skin: No rashes or lesions.? Musculoskeletal: No cyanosis or clubbing. Psychiatric: Normal mood and affect? Results Labs 03/30/23 15:12 03/30/23 15:12 Labs: Laboratory Results - last 24 hr 03/30/23 03/30/23 03/30/23 14:41 15:12 15:54 MCV 88.9 MCH 29.0 MCHC 32.6 RDW 14.9 Plt Count 312 MPV 9.5 Immature Gran % (Auto) 0.3 Neut % (Auto) 70.6 Lymph % (Auto) 19.0 L [place] % (Auto) 6.0 Eos % (Auto) 3.8 Baso % (Auto) 0.3 Lymph # (Auto) 2.3 [place] # (Auto) 0.7 Eos # (Auto) 0.5 H Baso # (Auto) 0.0 Abs Immat Gran (auto) 0.03 Absolute Neuts (auto) 8.5 H Absolute Nucleated RBC 0.000 Nucleated RBC % (auto) 0.0 Anion Gap 17 Estim Creat Clear Calc 38.7 Estimated GFR 35 Random Glucose 138 H Lactic Acid 2.2 H* Calcium 9.7 COVID-19 ([facility]) Negative COVID-19 Clin Com See Note Imaging Radiologist's Impressions: Impressions Chest X-Ray 03/30/23 14:38 IMPRESSION: Question small infiltrate in the right midlung Assessment and Plan (1) Acute exacerbation of COPD with asthma: Status: Acute (2) Osteoarthritis of both feet: Status: Acute Plan 72 year old female with asthma here with acute exacerbation of asthma exacerbation with acute hypoxic respiratory failure Acute hypoxic respiratory failure d/t acute moderate persistent asthma with exacerbation/copd exacerbation -IV steroid, bronchodilators by Neb, O2 to maintain sat around 92 ? PNA--repeat CXR with 2 views HTN--resume home med HLD--resume home meds mood disorder--resume home meds Diabetes--SSI, DVT prophylaxis: Lovenox admission for at least 2 midnights for management of acute hypoxic respiratory failure d/t asthma Quality Stroke Does the patient have a stroke diagnosis?: No VTE Prior VTE?: No VTE Risk Level:: Medical - moderate - high VTE Device Contraindication: Treatment Not Indicated VTE Drug Contraindication: N/A - Med Ordered
--- NOTE | 2023-03-30 17:04 | PHA.MEDREC ---
Pharmacy Consult ? Medication Reconciliation Pharmacy has completed the medication reconciliation. Patient confirmed medications. Patient's family member will bring in non formulary medications; Febuoxast and ramelteon. Katarina Vincent, ZiD
[2023-03-30] MEDS: Azithromycin 500 MG in 0.9 % Sodium Chloride 250 ML 125 MG IV (17:22)
--- NOTE | 2023-03-30 17:27 | PC.NURSE ---
medication administered per provider order.
[2023-03-30 17:43] LABS: Influenza A PCR NEGATIVE (Negative); Influenza B PCR NEGATIVE (Negative); Resp Syncy Virus RNA Qual PCR NEGATIVE (Negative); SARS COV2 PCR INHOUSE NEGATIVE (Negative)
[2023-03-30 18:05] LABS: Reflex Lactate? Lactic Acid Added
[2023-03-30 18:42] LABS: IDNOW Serial# 9DB6401D; Influenza A Negative (Negative); Influenza B2 Negative (Negative)
--- NOTE | 2023-03-30 19:13 | PC.NURSE ---
vss and up to date at this time. POC = 435 mg/dL.
[2023-03-30 19:19] LABS: Glucose, Whole Blood 435 mg/dL (60-115)
--- NOTE | 2023-03-30 19:23 | PC.NURSE ---
report given to RN on S3 - will notify transport.
[2023-03-30] MEDS: Albuterol Sulfate (0.083%) 2.5 MG/3 ML VIAL.NEB INHALE (19:56)
[2023-03-30 20:02] LABS: Glucose, Whole Blood 485 mg/dL (60-115)
[2023-03-30] MEDS: Montelukast Sodium 10 MG TABLET PO (20:36)
[2023-03-30] MEDS: Gabapentin 300 MG CAPSULE PO (20:36)
[2023-03-30] MEDS: Insulin Lispro 100 UNIT/ML 3 ML VIAL SUBCUT (20:37)
[2023-03-30 20:51] LABS: ~Lactic Acid-LAB USE ONLY 4.6 mmol/L (0.5-2.0)
[2023-03-30] MEDS: 0.9 % Sodium Chloride 1,000 ML 999 ML IV (21:30)
[2023-03-30 22:06] LABS: Reflex Lactate? 2 Y
[2023-03-30 23:10] LABS: ~Lactic Acid-LAB USE ONLY 5.9 mmol/L (0.5-2.0)
[2023-03-31] VITALS (8 sets, daily range): BP systolic 107–126; BP diastolic 56–59; PULSE 79–106; RESP 16–20; TEMP 36–36.9; O2SAT 89–95
[2023-03-31] MEDS: methylPREDNISolone Sod Succ 40 MG/ML VIAL IVPUSH ×3 (02:13→19:21)
[2023-03-31 06:07] LABS: MANUAL DIFF FLAG NO
[2023-03-31 06:23] LABS: Basophils Percent Auto 0.1 % (0-2); Hematocrit 34.7 % (37.0-47.0); Hemoglobin 11.3 g/dl (12.0-16.0); Imm Gran Abs Auto 0.21 X10*3/uL (0.00-0.03); Imm Gran Pct Auto 1.7 % (0.0-0.4); Lymphocytes Absolute Auto 1.1 X10*3/uL (1.2-4.9); Lymphocytes Percent Auto 8.6 % (20-40); Mean Corpuscular HGB Conc 32.6 g/dl (31.0-35.0); Mean Corpuscular Volume 89.2 fL (80.0-98.0); Mean Platelet Volume 9.8 fL (9.4-12.3); Monocytes Absolute Auto 0.2 X10*3/uL (0.1-1.2); Monocytes Percent Auto 1.4 % (2-11); Neutrophils Absolute Auto 11.2 x10*3/uL (2.0-8.3); Neutrophils Percent Auto 88.2 % (45-73); Platelet Count 332 X10*3/uL (160-400); Red Blood Count 3.89 X10*6/uL (4.20-5.50); White Blood Count 12.7 X10*3/uL (4.8-10.8)
[2023-03-31 06:27] LABS: Anion Gap 15 (12-20); Blood Urea Nitrogen 23 mg/dL (9-16); Calcium 9.1 mg/dL (8.4-10.2); Carbon Dioxide 18 mmol/L (22-29); Chloride 111 mmol/L (96-108); Creatinine Clr Calc Pharmacy 47.2; Estimated Glomerular Filt Rate 43; Glucose Random 216 mg/dL (60-115); Potassium 4.7 mmol/L (3.3-5.1); Sodium 139 mmol/L (135-145)
[2023-03-31 07:38] LABS: Glucose, Whole Blood 193 mg/dL (60-115)
[2023-03-31] MEDS: lisinopriL 20 MG TABLET PO (07:47)
[2023-03-31] MEDS: Escitalopram Oxalate 20 MG TABLET PO (07:47)
[2023-03-31] MEDS: Cholecalciferol (Vitamin D3) 25 MCG TABLET PO (07:47)
[2023-03-31] MEDS: Loratadine 10 MG TABLET PO (07:47)
[2023-03-31] MEDS: Gabapentin 300 MG CAPSULE PO ×2 (07:47→21:07)
[2023-03-31] MEDS: Atorvastatin Calcium 10 MG TABLET PO (07:47)
[2023-03-31] MEDS: Insulin Lispro 100 UNIT/ML 3 ML VIAL SUBCUT ×4 (07:48→21:07)
[2023-03-31] MEDS: hydroCHLOROthiazide 12.5 MG TABLET PO (07:48)
[2023-03-31] MEDS: Albuterol Sulfate (0.083%) 2.5 MG/3 ML VIAL.NEB INHALE ×4 (08:20→19:50)
--- NOTE | 2023-03-31 09:32 | MHC.CM.PN ---
pt is independent lives alone had no servcies ,has own ride home dc plan home no servcies
--- NOTE | 2023-03-31 10:46 | HO.PM.IMPN ---
Subjective Subjective Date of Service: 03/31/23 Review of Systems Follow up COPD exacerbation doing better today mild sob with ambulation Physical Exam Vital Signs: Vital Signs: Last Vital Signs Temp 96.8 F 03/31/23 07:50 Pulse 100 03/31/23 08:23 Resp 18 03/31/23 08:23 BP 123/59 L 03/31/23 07:50 Pulse Ox 90 L 03/31/23 07:50 O2 Del Method Nasal Cannula 03/31/23 07:50 O2 Flow Rate 2 03/31/23 07:50 BMI result Body Mass Index 33.1 Appearing in no acute distress lung sounds mild exp wheeze heart regular rate rhythm, clear S1, S2 positive bowel sounds, abdomen is soft, nontender neuro patient is alert x3, no focal deficits Objective Data Active Medications Albuterol Sulfate (Albuterol Sulfate (0.083%) 2.5 Mg/3 Ml Vial.Neb) 2.5 mg INHALE RQ4H WHILE AWAKE ON LICENSE OF [facility] Last Admin: 03/31/23 08:20 Dose: 2.5 mg Documented By: FELICIA Albuterol/Ipratropium (Albuterol/Iprat 2.5/0.5mg 3 Ml Ampul.Neb) 3 ml INHALE Q4H PRN PRN Reason: Wheezing Atorvastatin Calcium (Atorvastatin Calcium 10 Mg Tablet) 10 mg PO DAILY ON LICENSE OF [facility] Last Admin: 03/31/23 07:47 Dose: 10 mg Documented By: MAREN Colchicine (Colchicine 0.6 Mg Tablet) 0.6 mg PO DAILY PRN PRN Reason: GOUT FLARE Dextrose (Dextrose 50 % 25 Gm/50 Ml Syringe) 25 gm IVPUSH Q15M PRN; Protocol PRN Reason: per Hypoglycemia Standing Ord. Escitalopram Oxalate (Escitalopram Oxalate 20 Mg Tablet) 20 mg PO DAILY ON LICENSE OF [facility] Last Admin: 03/31/23 07:47 Dose: 20 mg Documented By: MAREN Gabapentin (Gabapentin 300 Mg Capsule) 300 mg PO BID ON LICENSE OF [facility] Last Admin: 03/31/23 07:47 Dose: 300 mg Documented By: MAREN Glucose (Glucose Gel 15 Gm Gel..Gram.) 15 gm PO Q15M PRN; Protocol PRN Reason: per Hypoglycemia Standing Ord. Hydrochlorothiazide (Hydrochlorothiazide 12.5 Mg Tablet) 12.5 mg PO DAILY ON LICENSE OF [facility] Last Admin: 03/31/23 07:48 Dose: 12.5 mg Documented By: MAREN Ceftriaxone Sodium 1 gm/ (Sodium Chloride) 50 mls @ 100 mls/hr IV Q24H ON LICENSE OF [facility] Azithromycin 500 mg/ Sodium (Chloride) 250 mls @ 125 mls/hr IV Q24H ON LICENSE OF [facility] Last Infusion: 03/30/23 19:24 Dose: Infused Documented By: PADMA Insulin Human Lispro (Insulin Lispro 100 Unit/Ml 3 Ml Vial) 0 unit SUBCUT QIDACHS ON LICENSE OF [facility]; Protocol Last Admin: 03/31/23 07:48 Dose: 2 unit Documented By: MAREN Lisinopril (Lisinopril 20 Mg Tablet) 20 mg PO DAILY ON LICENSE OF [facility] Last Admin: 03/31/23 07:47 Dose: 20 mg Documented By: MAREN Loratadine (Loratadine 10 Mg Tablet) 10 mg PO DAILY ON LICENSE OF [facility] Last Admin: 03/31/23 07:47 Dose: 10 mg Documented By: MAREN Methylprednisolone Sodium Succinate (Methylprednisolone Sod Succ 40 Mg/Ml Vial) 40 mg IVPUSH Q8H ON LICENSE OF [facility] Last Admin: 03/31/23 02:13 Dose: 40 mg Documented By: PO Montelukast Sodium (Montelukast Sodium 10 Mg Tablet) 10 mg PO BEDTIME ON LICENSE OF [facility] Last Admin: 03/30/23 20:36 Dose: 10 mg Documented By: PO Non-Formulary Medication (Ramelteon) 8 mg PO BEDTIME ON LICENSE OF [facility] Vitamin D (Cholecalciferol (Vitamin D3) 25 Mcg Tablet) 25 mcg PO DAILY ON LICENSE OF [facility] Last Admin: 03/31/23 07:47 Dose: 25 mcg Documented By: MAREN Labs 03/31/23 05:51 03/31/23 05:51 Labs: Laboratory Results - last 24 hr 03/30/23 03/30/23 03/30/23 14:41 15:12 15:54 MCV 88.9 MCH 29.0 MCHC 32.6 RDW 14.9 Plt Count 312 MPV 9.5 Immature Gran % (Auto) 0.3 Neut % (Auto) 70.6 Lymph % (Auto) 19.0 L [place] % (Auto) 6.0 Eos % (Auto) 3.8 Baso % (Auto) 0.3 Lymph # (Auto) 2.3 [place] # (Auto) 0.7 Eos # (Auto) 0.5 H Baso # (Auto) 0.0 Abs Immat Gran (auto) 0.03 Absolute Neuts (auto) 8.5 H Absolute Nucleated RBC 0.000 Nucleated RBC % (auto) 0.0 Hold Purple Top Anion Gap 17 Estim Creat Clear Calc 38.7 Estimated GFR 35 POC Glucose Random Glucose 138 H Lactic Acid 2.2 H* Lactic Acid F/U @ 2Hr Lactic Acid F/U @ 4Hr Calcium 9.7 COVID-19 ([facility]) Negative COVID-19 Clin Com See Note Influenza Type A (JULES) Negative Influenza Type A (PCR) Influenza Type B (JULES) Negative Influenza Type B (PCR) Influenza A & B Note See Note RSV RNA Qual (PCR) SARS-CoV-2 RNA (RT-PCR) 03/30/23 03/30/23 03/30/23 16:18 19:14 19:58 MCV MCH MCHC RDW Plt Count MPV Immature Gran % (Auto) Neut % (Auto) Lymph % (Auto) [place] % (Auto) Eos % (Auto) Baso % (Auto) Lymph # (Auto) [place] # (Auto) Eos # (Auto) Baso # (Auto) Abs Immat Gran (auto) Absolute Neuts (auto) Absolute Nucleated RBC Nucleated RBC % (auto) Hold Purple Top SEE NOTE Anion Gap Estim Creat Clear Calc Estimated GFR POC Glucose 435 H* 485 H* Random Glucose Lactic Acid Lactic Acid F/U @ 2Hr 4.6 H* Lactic Acid F/U @ 4Hr Calcium COVID-19 ([facility]) COVID-[facility] Clin Com Influenza Type A (JULES) Influenza Type A (PCR) NEGATIVE Influenza Type B (JULES) Influenza Type B (PCR) NEGATIVE Influenza A & B Note RSV RNA Qual (PCR) NEGATIVE SARS-CoV-2 RNA (RT-PCR) NEGATIVE 03/30/23 03/31/23 03/31/23 22:51 05:51 07:32 MCV 89.2 MCH 29.0 MCHC 32.6 RDW 15.0 Plt Count 332 MPV 9.8 Immature Gran % (Auto) 1.7 H Neut % (Auto) 88.2 H Lymph % (Auto) 8.6 L [place] % (Auto) 1.4 L Eos % (Auto) 0.0 Baso % (Auto) 0.1 Lymph # (Auto) 1.1 L [place] # (Auto) 0.2 Eos # (Auto) 0.0 Baso # (Auto) 0.0 Abs Immat Gran (auto) 0.21 H Absolute Neuts (auto) 11.2 H Absolute Nucleated RBC 0.000 Nucleated RBC % (auto) 0.0 Hold Purple Top Anion Gap 15 Estim Creat Clear Calc 47.2 Estimated GFR 43 POC Glucose 193 H Random Glucose 216 H Lactic Acid Lactic Acid F/U @ 2Hr Lactic Acid F/U @ 4Hr 5.9 H* Calcium 9.1 D COVID-19 ([facility]) COVID-19 Clin Com Influenza Type A (JULES) Influenza Type A (PCR) Influenza Type B (JULES) Influenza Type B (PCR) Influenza A & B Note RSV RNA Qual (PCR) SARS-CoV-2 RNA (RT-PCR) Assessment and Plan (1) Acute exacerbation of COPD with asthma: Status: Acute Plan 72 year old women admitted with acute hypoxic respiratory failure secondary to COPD exacerbation Acute hypoxic respiratory failure secondary to COPD exacerbation and CAP Continue IV solumedrol, scheduled duonebs supplemental oxygen continue Rocephin and Azithromycin for CAP Follow blood cx, still pending SUNNI on CKD 3. Resolved IV fluids monitor BMP Hypertension continue Home medications stable blood pressure Mental health continue home medications Non insulin-dependent diabetes mellitus sliding scale, ADA diet DVT prophylaxis with heparin Attending Dr. Alston Full code continued hospital stay for tx of acute hypoxic resp failure secondary to COPD exacerbation and community-acquired pneumonia requiring IV antibiotics Quality Stroke Does the patient have a stroke diagnosis?: No VTE Prior VTE?: No VTE Risk Level:: Medical - moderate - high VTE Device Contraindication: Treatment Not Indicated VTE Drug Contraindication: N/A - Med Ordered
[2023-03-31 11:13] LABS: Glucose, Whole Blood 296 mg/dL (60-115)
[2023-03-31] MEDS: Heparin Sodium,Porcine 5,000 UNIT/ML VIAL 5000 UNIT SUBCUT (15:11)
[2023-03-31] MEDS: cefTRIAXone sodium 1 GM in 0.9 % Sodium Chloride 50 ML IV (15:11)
[2023-03-31 16:33] LABS: Glucose, Whole Blood 289 mg/dL (60-115)
[2023-03-31] MEDS: Azithromycin 500 MG in 0.9 % Sodium Chloride 250 ML 125 MG IV (17:04)
[2023-03-31 21:06] LABS: Glucose, Whole Blood 332 mg/dL (60-115)
[2023-03-31] MEDS: Montelukast Sodium 10 MG TABLET PO (21:07)
[2023-04-01] VITALS (10 sets, daily range): BP systolic 116–133; BP diastolic 61–65; PULSE 85–102; RESP 15–18; TEMP 36–36.6; O2SAT 85–97
[2023-04-01] MEDS: methylPREDNISolone Sod Succ 40 MG/ML VIAL IVPUSH ×3 (03:24→18:24)
[2023-04-01] MEDS: Heparin Sodium,Porcine 5,000 UNIT/ML VIAL 5000 UNIT SUBCUT ×2 (03:24→16:17)
[2023-04-01] MEDS: Albuterol/Iprat 2.5/0.5MG 3 ML AMPUL.NEB INHALE (03:40)
[2023-04-01 07:21] LABS: Glucose, Whole Blood 232 mg/dL (60-115)
[2023-04-01] MEDS: Benzonatate 100 MG CAPSULE PO ×3 (07:57→18:24)
[2023-04-01] MEDS: Insulin Lispro 100 UNIT/ML 3 ML VIAL SUBCUT ×4 (07:57→20:21)
[2023-04-01] MEDS: hydroCHLOROthiazide 12.5 MG TABLET PO (07:57)
[2023-04-01] MEDS: Gabapentin 300 MG CAPSULE PO ×2 (07:57→20:22)
[2023-04-01] MEDS: Escitalopram Oxalate 20 MG TABLET PO (07:57)
[2023-04-01] MEDS: Atorvastatin Calcium 10 MG TABLET PO (07:58)
[2023-04-01] MEDS: Loratadine 10 MG TABLET PO (07:58)
[2023-04-01] MEDS: lisinopriL 20 MG TABLET PO (07:58)
[2023-04-01] MEDS: Cholecalciferol (Vitamin D3) 25 MCG TABLET PO (07:58)
[2023-04-01] MEDS: Albuterol Sulfate (0.083%) 2.5 MG/3 ML VIAL.NEB INHALE ×4 (08:04→19:21)
[2023-04-01] MEDS: guaiFENesin LA 600 MG TAB.ER.12H 1200 MG PO ×2 (09:33→20:22)
[2023-04-01 11:28] LABS: Glucose, Whole Blood 345 mg/dL (60-115)
--- NOTE | 2023-04-01 12:36 | HO.PM.IMPN ---
Subjective Subjective Date of Service: 04/01/23 Review of Systems Follow up COPD exacerbation doing better today hypoxia with ambulation Physical Exam Vital Signs: Vital Signs: Last Vital Signs Temp 96.8 F 04/01/23 07:35 Pulse 102 H 04/01/23 12:31 Resp 16 04/01/23 12:31 BP 133/62 04/01/23 07:35 Pulse Ox 93 04/01/23 07:35 O2 Del Method Nasal Cannula 04/01/23 07:35 O2 Flow Rate 1 04/01/23 07:35 BMI result Body Mass Index 33.1 Appearing in no acute distress lung sounds mild exp wheezing, dry cough heart regular rate rhythm, clear S1, S2 positive bowel sounds, abdomen is soft, nontender neuro patient is alert x3, no focal deficits Objective Data Active Medications Albuterol Sulfate (Albuterol Sulfate (0.083%) 2.5 Mg/3 Ml Vial.Neb) 2.5 mg INHALE RQ4H WHILE AWAKE [facility] Last Admin: 04/01/23 12:31 Dose: 2.5 mg Documented By: EHSAN Albuterol/Ipratropium (Albuterol/Iprat 2.5/0.5mg 3 Ml Ampul.Neb) 3 ml INHALE Q4H PRN PRN Reason: Wheezing Last Admin: 04/01/23 03:40 Dose: 3 ml Documented By: HAILEY Atorvastatin Calcium (Atorvastatin Calcium 10 Mg Tablet) 10 mg PO DAILY [facility] Last Admin: 04/01/23 07:58 Dose: 10 mg Documented By: MAREN Benzonatate (Benzonatate 100 Mg Capsule) 100 mg PO TID [facility] Last Admin: 04/01/23 07:57 Dose: 100 mg Documented By: MAREN Colchicine (Colchicine 0.6 Mg Tablet) 0.6 mg PO DAILY PRN PRN Reason: GOUT FLARE Dextrose (Dextrose 50 % 25 Gm/50 Ml Syringe) 25 gm IVPUSH Q15M PRN; Protocol PRN Reason: per Hypoglycemia Standing Ord. Escitalopram Oxalate (Escitalopram Oxalate 20 Mg Tablet) 20 mg PO DAILY [facility] Last Admin: 04/01/23 07:57 Dose: 20 mg Documented By: MAREN Gabapentin (Gabapentin 300 Mg Capsule) 300 mg PO BID [facility] Last Admin: 04/01/23 07:57 Dose: 300 mg Documented By: MAREN Glucose (Glucose Gel 15 Gm Gel..Gram.) 15 gm PO Q15M PRN; Protocol PRN Reason: per Hypoglycemia Standing Ord. Guaifenesin (Guaifenesin La 600 Mg Tab.Er.12h) 1,200 mg PO BID [facility] Last Admin: 04/01/23 09:33 Dose: 1,200 mg Documented By: MAREN Heparin Sodium (Porcine) (Heparin Sodium,Porcine 5,000 Unit/Ml Vial) 5,000 unit SUBCUT Q12H [facility] Last Admin: 04/01/23 03:24 Dose: 5,000 unit Documented By: EMELIA Hydrochlorothiazide (Hydrochlorothiazide 12.5 Mg Tablet) 12.5 mg PO DAILY [facility] Last Admin: 04/01/23 07:57 Dose: 12.5 mg Documented By: MAREN Ceftriaxone Sodium 1 gm/ (Sodium Chloride) 50 mls @ 100 mls/hr IV Q24H [facility] Last Infusion: 03/31/23 15:50 Dose: Infused Documented By: MAREN Azithromycin 500 mg/ Sodium (Chloride) 250 mls @ 125 mls/hr IV Q24H [facility] Last Infusion: 03/31/23 19:25 Dose: Infused Documented By: EMELIA Insulin Human Lispro (Insulin Lispro 100 Unit/Ml 3 Ml Vial) 0 unit SUBCUT QIDACHS [facility]; Protocol Last Admin: 04/01/23 11:37 Dose: 345 unit Documented By: MAREN Lisinopril (Lisinopril 20 Mg Tablet) 20 mg PO DAILY [facility] Last Admin: 04/01/23 07:58 Dose: 20 mg Documented By: MAREN Loratadine (Loratadine 10 Mg Tablet) 10 mg PO DAILY [facility] Last Admin: 04/01/23 07:58 Dose: 10 mg Documented By: MAREN Methylprednisolone Sodium Succinate (Methylprednisolone Sod Succ 40 Mg/Ml Vial) 40 mg IVPUSH Q8H [facility] Last Admin: 04/01/23 10:23 Dose: 40 mg Documented By: MAREN Montelukast Sodium (Montelukast Sodium 10 Mg Tablet) 10 mg PO BEDTIME [facility] Last Admin: 03/31/23 21:07 Dose: 10 mg Documented By: EMELIA Non-Formulary Medication (Ramelteon) 8 mg PO BEDTIME [facility] Vitamin D (Cholecalciferol (Vitamin D3) 25 Mcg Tablet) 25 mcg PO DAILY [facility] Last Admin: 04/01/23 07:58 Dose: 25 mcg Documented By: MAREN Labs 03/31/23 05:51 03/31/23 05:51 Labs: Laboratory Results - last 24 hr 03/31/23 03/31/23 04/01/23 16:28 20:45 07:15 POC Glucose 289 H 332 H 232 H 04/01/23 11:21 POC Glucose 345 H Microbiology Microbiology Results: Microbiology 03/30/23 15:54 Blood Culture - Preliminary Blood - Venous No growth after 24 hours. 03/30/23 15:54 Blood Culture - Preliminary Blood - Venous No growth after 24 hours. Assessment and Plan (1) Acute exacerbation of COPD with asthma: Status: Acute Plan 72 year old women admitted with acute hypoxic respiratory failure secondary to COPD exacerbation Acute hypoxic respiratory failure secondary to COPD exacerbation and CAP still hypoxia with ambulation, sats down to 87% on ra Continue IV solumedrol, scheduled duonebs supplemental oxygen continue Rocephin and Azithromycin for CAP negative blood cx for 24hrs mucinex for cough SUNNI on CKD 3. Resolved s/p IV fluids monitor BMP Hypertension continue Home medications stable blood pressure Mental health continue home medications Non insulin-dependent diabetes mellitus sliding scale, ADA diet DVT prophylaxis with heparin Attending Dr. Alston Full code continued hospital stay for tx of acute hypoxic resp failure secondary to COPD exacerbation and community-acquired pneumonia requiring IV antibiotics Quality Stroke Does the patient have a stroke diagnosis?: No VTE Prior VTE?: No VTE Risk Level:: Medical - moderate - high VTE Device Contraindication: N/A - Device Ordered VTE Drug Contraindication: Treatment Not Indicated
--- NOTE | 2023-04-01 14:44 | MHC.CM.PN ---
EMR REVIEWED AND PER MD ROUNDS, NOT MEDICALLY CLEARED FOR DC (HYPOXIA WITH AMBULATION, IV ABT) CM WILL CONTINUE TO FOLLOW FOR ANY CHANGE IN DC NEEDS/PLAN.
--- NOTE | 2023-04-01 15:34 | P.DS_ITS ---
DS: Providers Provider Date of admission: 03/30/23 16:46 Primary care physician: SATYA Keating DS: Diagnosis Discharge Diagnosis (1) Acute exacerbation of COPD with asthma: Status: Acute DS: Summary Hospital Course Hospital Course: 72-year-old women with past medical history of lymphedema, depression, anemia, gout, diabetes, HLD, HTN, COPD, GERD, asthma, presenting to the ED complaining of dry cough, SOB, chest discomfort with coughing x1 week. Admits to using inhalers at home without relief. Reports recent prednisone use a week ago, states as soon as finished course symptoms recurred. Denies fever, recent travel, sick contacts, pedal edema. reported sob and wheezing. In the ED, patient received albuterol, Solu-Medrol, cough suppressant, Augmentin azithromycin, Rocephin. She will be admitted for further management and treatment of acute hypoxic respiratory failure secondary to COPD exacerbation and community-acquired pneumonia. 72-year-old woman did for acute COPD exacerbation and community-acquired pneumonia. Treated with IV Rocephin and azithromycin, IV Solu-Medrol and scheduled and as needed DuoNeb treatments. She also required supplemental oxygen. She did have some episodes of hypoxia especially with ambulation oxygen saturation would go down into high 80s. She has also had a dry cough that was treated with Tessalon Perles p.r.n. and Mucinex. Plan is for patient to continue 2 more days of antibiotics, prednisone taper. She should follow-up with her educational diagnostician as outpatient. SUNNI on CKD stage 3. Treated with IV fluids and resolved Hypertension. Stable blood pressure. Continue medications Mental health. Continue medications Non insulin-dependent diabetes mellitus type 2, continue Trulicity Physical Exam Vital Signs: Vital Signs: Last Vital Signs Temp 96.8 F 04/01/23 07:35 Pulse 102 H 04/01/23 12:31 Resp 16 04/01/23 12:31 BP 133/62 04/01/23 07:35 Pulse Ox 85 L 04/01/23 12:00 O2 Del Method Room Air 04/01/23 12:00 O2 Flow Rate 1 04/01/23 07:35 BMI result Body Mass Index 33.1 DS: Data Data Completed and Pending Labs on day of discharge: Laboratory Results - last 24 hr 03/31/23 03/31/23 04/01/23 16:28 20:45 07:15 POC Glucose 289 H 332 H 232 H 04/01/23 11:21 POC Glucose 345 H Preliminary micro results at discharge 03/30/23 15:54 Blood Culture - Preliminary Blood - Venous No growth after 24 hours. 03/30/23 15:54 Blood Culture - Preliminary Blood - Venous No growth after 24 hours. Discharge Plan Discharge Patient Disposition: Home, Self-Care Discharge Diagnosis: COPD exacerbation Community-acquired pneumonia Referrals: Adenike Souza FNP [Primary Care Provider] - 1 Week Discharge Medications: New benzonatate 100 mg Capsule 100 mg PO TID Qty: 9 0RF guaifenesin [Mucinex] 600 mg Tablet Extended Release 12hr 1,200 mg PO BID Qty: 12 0RF azithromycin 500 mg tablet 500 mg PO DAILY 2 Days Qty: 2 0RF prednisone 10 mg tablet See Taper PO DIRECTED Qty: 20 0RF Taper: Prednisone 40 mg daily for 2 Days and 0 Hour 30 mg daily for 2 Days and 0 Hour 20 mg daily for 2 Days and 0 Hour 10 mg daily for 2 Days and 0 Hour Rx Instructions: see taper instructions cefuroxime axetil 500 mg tablet 500 mg PO BID Qty: 4 0RF Continued gabapentin 300 mg capsule 300 mg PO BID Qty: 60 5RF cholecalciferol (vitamin D3) 25 mcg (1,000 unit) capsule 25 mcg PO DAILY Qty: 90 1RF dapagliflozin propanediol 5 mg tablet 5 mg PO DAILY febuxostat 80 mg tablet 80 mg PO DAILY Qty: 90 3RF Flovent Diskus 50 mcg/actuation blister with device 1 inh INHALATION BID ramelteon 8 mg tablet 8 mg PO BEDTIME colchicine (gout) 0.6 mg tablet 0.6 mg PO DAILY PRN (Reason: GOUT FLARE) acetaminophen 650 mg tablet extended release 650 mg PO Q8H PRN (Reason: Pain) citalopram 40 mg tablet 20 mg PO DAILY loratadine [Allergy Relief (loratadine)] 10 mg tablet 10 mg PO DAILY montelukast 10 mg tablet 10 mg PO BEDTIME ipratropium-albuterol 0.5 mg-3 mg(2.5 mg base)/3 mL solution for nebulization 3 ml inhalation QID PRN (Reason: Wheezing) simvastatin 20 mg tablet 20 mg PO DAILY (DME) FreeStyle Lite Strips Strip See Rx Instructions Not Applicable TID Qty: 10 Rx Instructions: As directed ferrous gluconate 324 mg (37.5 mg iron) tablet 324 mg PO Q48H dexlansoprazole [Dexilant] 60 mg capsule,biphase delayed releas 60 mg PO DAILY 30 Days Qty: 30 6RF Trulicity 0.75 mg/0.5 mL pen injector 0.75 mg subcut TH albuterol sulfate 2.5 mg /3 mL (0.083 %) solution for nebulization 2.5 mg inhalation Q4H PRN (Reason: wheezing) azelastine 137 mcg (0.1 %) aerosol,spray 1 spray intranasal BID PRN (Reason: Congestion) lisinopril-hydrochlorothiazide 20-12.5 mg tablet 1 tab PO QAM Diet: Advance to usual diet Activity on Discharge: As tolerated Stand Alone Forms: Patient Portal Discharge page Care Plan Goals: Complete resolution of symptoms Health Concerns: COPD exacerbation Community-acquired pneumonia Plan of Treatment: Follow-up with primary care for bladder as needed Take all medications as prescribed Assessment: See discharge summary
[2023-04-01 15:47] LABS: Glucose, Whole Blood 232 mg/dL (60-115)
[2023-04-01] MEDS: cefTRIAXone sodium 1 GM in 0.9 % Sodium Chloride 50 ML IV (16:20)
[2023-04-01] MEDS: Azithromycin 500 MG in 0.9 % Sodium Chloride 250 ML 125 MG IV (17:17)
[2023-04-01 19:48] LABS: Glucose, Whole Blood 237 mg/dL (60-115)
[2023-04-01] MEDS: Montelukast Sodium 10 MG TABLET PO (20:22)
[2023-04-01] MEDS: guaiFEN/Codeine SF 200/20/10ML 10 ML LIQUID 5 ML PO (22:24)
[2023-04-02] VITALS (12 sets, daily range): BP systolic 99–132; BP diastolic 56–62; PULSE 77–109; RESP 16–18; TEMP 35.9–36.7; O2SAT 82–95
[2023-04-02] MEDS: methylPREDNISolone Sod Succ 40 MG/ML VIAL IVPUSH ×3 (03:11→18:32)
[2023-04-02] MEDS: Heparin Sodium,Porcine 5,000 UNIT/ML VIAL 5000 UNIT SUBCUT ×2 (03:11→16:56)
[2023-04-02] MEDS: guaiFEN/Codeine SF 200/20/10ML 10 ML LIQUID 5 ML PO ×2 (03:16→11:39)
[2023-04-02 07:31] LABS: Glucose, Whole Blood 187 mg/dL (60-115)
[2023-04-02] MEDS: Albuterol Sulfate (0.083%) 2.5 MG/3 ML VIAL.NEB INHALE ×4 (08:09→19:33)
[2023-04-02] MEDS: guaiFENesin LA 600 MG TAB.ER.12H 1200 MG PO (08:18)
[2023-04-02] MEDS: hydroCHLOROthiazide 12.5 MG TABLET PO (08:18)
[2023-04-02] MEDS: Atorvastatin Calcium 10 MG TABLET PO (08:18)
[2023-04-02] MEDS: Gabapentin 300 MG CAPSULE PO ×2 (08:18→20:42)
[2023-04-02] MEDS: Cholecalciferol (Vitamin D3) 25 MCG TABLET PO (08:19)
[2023-04-02] MEDS: Loratadine 10 MG TABLET PO (08:19)
[2023-04-02] MEDS: Escitalopram Oxalate 20 MG TABLET PO (08:19)
[2023-04-02] MEDS: lisinopriL 20 MG TABLET PO (08:19)
[2023-04-02] MEDS: Insulin Lispro 100 UNIT/ML 3 ML VIAL SUBCUT ×4 (08:19→20:42)
[2023-04-02 12:09] LABS: Glucose, Whole Blood 315 mg/dL (60-115)
--- NOTE | 2023-04-02 15:29 | HO.PM.IMPN ---
Subjective Subjective Date of Service: 04/02/23 Interval History: Complaining of shortness of breath worse with activity oxygenation drops to mid 80s with ambulation complaining of persistent dry cough, no fevers, no chills, no other acute issues tolerating diet with no nausea, no vomiting, no abdominal pain. Review of Systems All other system reviewed and negative. Physical Exam Vital Signs: Vital Signs: Last Vital Signs Temp 96.6 F L 04/02/23 07:15 Pulse 103 H 04/02/23 11:54 Resp 16 04/02/23 11:54 BP 111/62 04/02/23 07:15 Pulse Ox 92 04/02/23 13:37 O2 Del Method Nasal Cannula 04/02/23 13:37 O2 Flow Rate 2 04/02/23 13:37 BMI result Body Mass Index 33.1 Const: Other: General awake alert x3 in no acute distress. Neck no JVD. CVS regular rate rhythm, Respiratory lungs bilateral expiratory rhonchi, no respiratory distress Gastrointestinal abdomen soft, nontender, bowel sounds audible,no guarding , no rigidity. Extremities no edema. Neuro nonfocal Skin no rash Psych appropriate affect Objective Data Active Medications Albuterol Sulfate (Albuterol Sulfate (0.083%) 2.5 Mg/3 Ml Vial.Neb) 2.5 mg INHALE RQ4H WHILE AWAKE [facility] Last Admin: 04/02/23 11:52 Dose: 2.5 mg Documented By: FELICIA Albuterol/Ipratropium (Albuterol/Iprat 2.5/0.5mg 3 Ml Ampul.Neb) 3 ml INHALE Q4H PRN PRN Reason: Wheezing Last Admin: 04/01/23 03:40 Dose: 3 ml Documented By: HAILEY Atorvastatin Calcium (Atorvastatin Calcium 10 Mg Tablet) 10 mg PO DAILY [facility] Last Admin: 04/02/23 08:18 Dose: 10 mg Documented By: MAREN Benzonatate (Benzonatate 100 Mg Capsule) 100 mg PO TID PRN PRN Reason: cough Last Admin: 04/01/23 18:24 Dose: 100 mg Documented By: REBEKAH Colchicine (Colchicine 0.6 Mg Tablet) 0.6 mg PO DAILY PRN PRN Reason: GOUT FLARE Dextrose (Dextrose 50 % 25 Gm/50 Ml Syringe) 25 gm IVPUSH Q15M PRN; Protocol PRN Reason: per Hypoglycemia Standing Ord. Escitalopram Oxalate (Escitalopram Oxalate 20 Mg Tablet) 20 mg PO DAILY [facility] Last Admin: 04/02/23 08:19 Dose: 20 mg Documented By: MAREN Gabapentin (Gabapentin 300 Mg Capsule) 300 mg PO BID [facility] Last Admin: 04/02/23 08:18 Dose: 300 mg Documented By: MAREN Glucose (Glucose Gel 15 Gm Gel..Gram.) 15 gm PO Q15M PRN; Protocol PRN Reason: per Hypoglycemia Standing Ord. Guaifenesin (Guaifenesin La 600 Mg Tab.Er.12h) 1,200 mg PO BID [facility] Stop: 04/03/23 09:09 Last Admin: 04/02/23 08:18 Dose: 1,200 mg Documented By: MAREN Guaifenesin/Codeine Phosphate (Guaifen/Codeine Sf 200/20/10ml 10 Ml Liquid) 5 ml PO Q4H PRN PRN Reason: Cough Last Admin: 04/02/23 11:39 Dose: 5 ml Documented By: MAREN Heparin Sodium (Porcine) (Heparin Sodium,Porcine 5,000 Unit/Ml Vial) 5,000 unit SUBCUT Q12H [facility] Last Admin: 04/02/23 03:11 Dose: 5,000 unit Documented By: CECILIA Hydrochlorothiazide (Hydrochlorothiazide 12.5 Mg Tablet) 12.5 mg PO DAILY [facility] Last Admin: 04/02/23 08:18 Dose: 12.5 mg Documented By: MAREN Ceftriaxone Sodium 1 gm/ (Sodium Chloride) 50 mls @ 100 mls/hr IV Q24H [facility] Last Infusion: 04/01/23 17:14 Dose: Infused Documented By: MAREN Azithromycin 500 mg/ Sodium (Chloride) 250 mls @ 125 mls/hr IV Q24H [facility] Last Infusion: 04/01/23 19:29 Dose: Infused Documented By: REBEKAH Insulin Human Lispro (Insulin Lispro 100 Unit/Ml 3 Ml Vial) 0 unit SUBCUT QIDACHS [facility]; Protocol Last Admin: 04/02/23 12:09 Dose: 8 unit Documented By: MAREN Lisinopril (Lisinopril 20 Mg Tablet) 20 mg PO DAILY [facility] Last Admin: 04/02/23 08:19 Dose: 20 mg Documented By: MAREN Loratadine (Loratadine 10 Mg Tablet) 10 mg PO DAILY [facility] Last Admin: 04/02/23 08:19 Dose: 10 mg Documented By: MAREN Methylprednisolone Sodium Succinate (Methylprednisolone Sod Succ 40 Mg/Ml Vial) 40 mg IVPUSH Q8H [facility] Last Admin: 04/02/23 11:38 Dose: 40 mg Documented By: MAREN Montelukast Sodium (Montelukast Sodium 10 Mg Tablet) 10 mg PO BEDTIME [facility] Last Admin: 04/01/23 20:22 Dose: 10 mg Documented By: REBEKAH Non-Formulary Medication (Ramelteon) 8 mg PO BEDTIME [facility] Vitamin D (Cholecalciferol (Vitamin D3) 25 Mcg Tablet) 25 mcg PO DAILY [facility] Last Admin: 04/02/23 08:19 Dose: 25 mcg Documented By: MAREN Labs 03/31/23 05:51 03/31/23 05:51 Labs: Laboratory Results - last 24 hr 04/01/23 04/01/23 04/02/23 15:34 19:34 07:19 POC Glucose 232 H 237 H 187 H 04/02/23 12:04 POC Glucose 315 H Microbiology Microbiology Results: Microbiology 03/30/23 15:54 Blood Culture - Preliminary Blood - Venous No growth after 48 hours. 03/30/23 15:54 Blood Culture - Preliminary Blood - Venous No growth after 48 hours. Assessment and Plan (1) CKD (chronic kidney disease), stage III: Status: Acute (2) Acute exacerbation of COPD with asthma: Status: Acute Plan 72 year old women admitted with acute hypoxic respiratory failure secondary to COPD exacerbation Acute hypoxic respiratory failure secondary to COPD exacerbation and CAP still hypoxia with ambulation, sats down to mid 80s on ra Continue IV solumedrol 40mg q8h, scheduled duonebs continue Rocephin and Azithromycin for CAP negative blood cx for 24hrs Add cough suppressant, DC cough Unasyn Obtain pulmonary consult Will order home O2 al prior to discharge SUNNI on CKD 3. Resolved s/p IV fluids monitor BMP Hypertension Soft blood pressures will DC hydrochlorothiazide and reduced dose of lisinopril to 10 mg Mental health continue home medications Non insulin-dependent diabetes mellitus sliding scale, ADA diet DVT prophylaxis with heparin Full code continued hospital stay for tx of acute hypoxic resp failure secondary to COPD exacerbation and community-acquired pneumonia requiring IV antibiotics and expert consultation Quality Stroke Does the patient have a stroke diagnosis?: No VTE Prior VTE?: No VTE Risk Level:: Medical - moderate - high VTE Device Contraindication: N/A - Device Ordered VTE Drug Contraindication: Treatment Not Indicated
--- NOTE | 2023-04-02 15:55 | PM.CNPUL ---
History of Present Illness History of Present Illness Consult date: 04/02/23 Reason for consult: COPD, hypoxemia and pneumonia Chief complaint: COPD exacerbation Narrative: Pulmonary Consult I have seen this 72 years old patient this afternoon for pulmonary consultation, She has been admitted with an acute exacerbation of her COPD, as her symptoms were escalating for about 1 week with increased cough and shortness of breath she was treated with a course of prednisone about a week or go But as soon as she stopped taking prednisone she started having increased symptoms again. She denies any fever or chills but had increased cough mostly dry. This 72-year-old women has past medical history of lymphedema, depression, anemia, gout, diabetes, HLD, HTN, COPD, GERD, and bronchial asthma for many years. She used to be followed up and treated by Dr. 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 She was looking for a bioinformatics specialist for ongoing pulmonary care. Since her admission she has been treated with steroids, combination of azithromycin and Rocephin . And is slowly improved She was ready for being discharged yesterday but was noted to have hypoxemia on walking, her O2 sats drop into mid 80s with minimal walking. 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 Seropositive rheumatoid arthritis Asthma History of right breast cancer Family History Family History Father Throat cancer Mother Asthma Osteoarthritis Sister Breast cancer Surgical History Surgical History Hx of hand surgery H/O cystoscopy Hx of thumb surgery H/O colonoscopy H/O local excision of skin lesion History of bilateral carpal tunnel release S/P lumpectomy, right breast History of esophagogastroduodenoscopy (EGD) Social History Social History Household Members: None Housing: Apartment Do you presently have visiting nurse or other home services: No Unable to assess alcohol history related to: Unknown Alcohol intake: never Patient Tobacco Use Status: Former Tobacco user Quit Date: 2014 Tobacco use type: Cigarette Smoked in Last 30 Days: No e-Cigarette/Vaping Use: Never Used Use of substances other than those prescribed or required for medical reasons: No Currently Displaying Signs/Symptoms of Drug Intoxication Withdrawal: No Advance Directives: No Advance Directives Information Provided: No Nutrition Risks: No Nutritional Risk Patient : No service: No Current occupational status: retired 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 Meds Allergies Allergy/AdvReac Type Severity Reaction Status Date / Time latex [LATEX] Allergy Intermediate BLISTERS Verified 01/05/23 13:13 abatacept [From Orencia] Allergy Unknown Itching Verified 01/05/23 13:13 adalimumab [From Humira] Allergy dizziness Verified 01/05/23 13:13 aspirin AdvReac Intermediate abdominal Verified 01/05/23 13:13 pain Active Medications: Current Medications Albuterol Sulfate (Albuterol Sulfate (0.083%) 2.5 Mg/3 Ml Vial.Neb) 2.5 mg INHALE RQ4H WHILE AWAKE [facility] Last Admin: 04/02/23 15:37 Dose: 2.5 mg Albuterol/Ipratropium (Albuterol/Iprat 2.5/0.5mg 3 Ml Ampul.Neb) 3 ml INHALE Q4H PRN PRN Reason: Wheezing Last Admin: 04/01/23 03:40 Dose: 3 ml Atorvastatin Calcium (Atorvastatin Calcium 10 Mg Tablet) 10 mg PO DAILY [facility] Last Admin: 04/02/23 08:18 Dose: 10 mg Benzonatate (Benzonatate 100 Mg Capsule) 100 mg PO TID [facility] Colchicine (Colchicine 0.6 Mg Tablet) 0.6 mg PO DAILY PRN PRN Reason: GOUT FLARE Dextrose (Dextrose 50 % 25 Gm/50 Ml Syringe) 25 gm IVPUSH Q15M PRN; Protocol PRN Reason: per Hypoglycemia Standing Ord. Escitalopram Oxalate (Escitalopram Oxalate 20 Mg Tablet) 20 mg PO DAILY [facility] Last Admin: 04/02/23 08:19 Dose: 20 mg Gabapentin (Gabapentin 300 Mg Capsule) 300 mg PO BID [facility] Last Admin: 04/02/23 08:18 Dose: 300 mg Glucose (Glucose Gel 15 Gm Gel..Gram.) 15 gm PO Q15M PRN; Protocol PRN Reason: per Hypoglycemia Standing Ord. Heparin Sodium (Porcine) (Heparin Sodium,Porcine 5,000 Unit/Ml Vial) 5,000 unit SUBCUT Q12H [facility] Last Admin: 04/02/23 03:11 Dose: 5,000 unit Ceftriaxone Sodium 1 gm/ (Sodium Chloride) 50 mls @ 100 mls/hr IV Q24H [facility] Last Infusion: 04/01/23 17:14 Dose: Infused Azithromycin 500 mg/ Sodium (Chloride) 250 mls @ 125 mls/hr IV Q24H [facility] Last Infusion: 04/01/23 19:29 Dose: Infused Insulin Human Lispro (Insulin Lispro 100 Unit/Ml 3 Ml Vial) 0 unit SUBCUT QIDACHS [facility]; Protocol Last Admin: 04/02/23 12:09 Dose: 8 unit Lisinopril (Lisinopril 10 Mg Tablet) 10 mg PO DAILY [facility] Loratadine (Loratadine 10 Mg Tablet) 10 mg PO DAILY [facility] Last Admin: 04/02/23 08:19 Dose: 10 mg Methylprednisolone Sodium Succinate (Methylprednisolone Sod Succ 40 Mg/Ml Vial) 40 mg IVPUSH Q8H [facility] Last Admin: 04/02/23 11:38 Dose: 40 mg Montelukast Sodium (Montelukast Sodium 10 Mg Tablet) 10 mg PO BEDTIME [facility] Last Admin: 04/01/23 20:22 Dose: 10 mg Non-Formulary Medication (Ramelteon) 8 mg PO BEDTIME [facility] Vitamin D (Cholecalciferol (Vitamin D3) 25 Mcg Tablet) 25 mcg PO DAILY [facility] Last Admin: 04/02/23 08:19 Dose: 25 mcg Home Medications Medication Instructions Recorded Confirmed Last Taken Type acetaminophen 650 mg 650 mg PO Q8H PRN Pain 02/25/20 03/30/23 03/29/23 History tablet,extended release citalopram 40 mg tablet 20 mg PO DAILY 02/25/20 03/30/23 03/29/23 History ipratropium 0.5 mg-albuterol 3 mg 3 ml inhalation QID PRN Wheezing 02/25/20 03/30/23 Unknown History (2.5 mg base)/3 mL nebulization soln loratadine 10 mg tablet (Allergy 10 mg PO DAILY 1003/30/23 03/29/23 History Relief (loratadine)) montelukast 10 mg tablet 10 mg PO BEDTIME 02/25/20 03/30/23 03/29/23 History simvastatin 20 mg tablet 20 mg PO DAILY 02/25/20 03/30/23 03/29/23 History blood sugar diagnostic (FreeStyle #10 ea 04/04/21 01/05/23 Unknown History Lite Strips) dapagliflozin propanediol 5 mg 5 mg PO DAILY 03/19/22 03/30/23 03/29/23 History tablet ferrous gluconate 324 mg (37.5 mg 324 mg PO Q48H 10/09/22 03/30/23 03/29/23 History iron) tablet albuterol sulfate 2.5 mg/3 mL 2.5 mg inhalation Q4H PRN wheezing 01/05/23 03/30/23 Unknown History (0.083 %) solution for nebulization azelastine 137 mcg (0.1 %) nasal 1 spray intranasal BID PRN 01/05/23 03/30/23 Unknown History spray aerosol Congestion dulaglutide 0.75 mg/0.5 mL 0.75 mg subcut TH 01/05/23 03/30/23 03/26/23 History subcutaneous pen injector (Trulicity) lisinopril 20 1 tab PO QAM 01/05/23 03/30/23 03/29/23 History mg-hydrochlorothiazide 12.5 mg tablet colchicine (gout) 0.6 mg tablet 0.6 mg PO DAILY PRN GOUT FLARE 03/30/23 03/30/23 Unknown History fluticasone propionate 50 1 inh inhalation BID 03/30/23 03/30/23 03/29/23 History mcg/actuation blister powder for inhalation (Flovent Diskus) ramelteon 8 mg tablet 8 mg PO BEDTIME 03/30/23 03/30/23 03/29/23 History Physical Exam Vital Signs: Vital Signs: Last Vital Signs Temp 96.6 F L 04/02/23 15:34 Pulse 92 04/02/23 15:38 Resp 16 04/02/23 15:38 BP 99/56 L 04/02/23 15:34 Pulse Ox 93 04/02/23 15:34 O2 Del Method Nasal Cannula 11/09/23 15:34 O2 Flow Rate 3 04/02/23 15:34 BMI result Body Mass Index 33.1 Const: General: comfortable, no acute distress, alert and awake Orientation/consciousness: patient oriented x3 HEENT: Head: Yes normal to inspection General nose exam: No nasal polyps present and No nasal discharge present Face and sinus: Yes sinuses nontender Mouth: oropharynx normal Throat: Yes posterior oropharynx normal Eyes: General: appearance normal, both eyes and all related structures Neck: Neck: Yes normal visual inspection, Yes no lymphadenopathy, Yes trachea midline and Yes no JVD Thyroid: Thyroid normal Chest: Chest palpation & inspection: normal inspection of the chest, normal palpation of entire chest wall and no tenderness Resp: Other: Percussion note resonant, breath sounds are distant with prolonged expiratory phase. She has a few wheezes in [place] over the right mid chest and over basilar areas. Cardio: Palpation: normal PMI Rate: regular rate Rhythm: regular rhythm Heart sounds: no gallops and no murmurs GI: Palpation (GI): Soft to palpation, nontender, No hepatosplenomegaly present and no masses Auscultation: normal bowel sounds Back/Spine/Pelvis: Thoracic/Lumbar Spine: thoracic and lumbar spine normal to inspection Skin: General skin exam: no rashes or lesions noted Neuro: General: patient oriented x3 and no focal motor deficits Cranial nerves: Yes CN's II-XII intact bilaterally Extrem: General: Yes normal to inspection, Yes no calf tenderness and Yes edema (Mild chronic stasis edema of the legs) Psych: Appearance: grossly normal and well kempt Speech and movement: Normal speech and movement present Results Laboratory Findings 03/31/23 05:51 03/31/23 05:51 Abnormal lab findings: Abnormal Labs 03/30/23 03/30/23 03/30/23 15:12 15:54 19:14 WBC 12.0 H RBC Hgb Hct Immature Gran % (Auto) Neut % (Auto) Lymph % (Auto) 19.0 L [place] % (Auto) Lymph # (Auto) Eos # (Auto) 0.5 H Abs Immat Gran (auto) Absolute Neuts (auto) 8.5 H Chloride Carbon Dioxide 19 L BUN 25 H Creatinine 1.49 H POC Glucose 435 H* Random Glucose 138 H Lactic Acid 2.2 H* Lactic Acid F/U @ 2Hr Lactic Acid F/U @ 4Hr 03/30/23 03/30/23 03/31/23 19:58 22:51 05:51 WBC 12.7 H RBC 3.89 L Hgb 11.3 L Hct 34.7 L Immature Gran % (Auto) 1.7 H Neut % (Auto) 88.2 H Lymph % (Auto) 8.6 L [place] % (Auto) 1.4 L Lymph # (Auto) 1.1 L Eos # (Auto) Abs Immat Gran (auto) 0.21 H Absolute Neuts (auto) 11.2 H Chloride 111 H Carbon Dioxide 18 L BUN 23 H Creatinine POC Glucose 485 H* Random Glucose 216 H Lactic Acid Lactic Acid F/U @ 2Hr 4.6 H* Lactic Acid F/U @ 4Hr 5.9 H* 03/31/23 03/31/23 03/31/23 07:32 11:08 16:28 WBC RBC Hgb Hct Immature Gran % (Auto) Neut % (Auto) Lymph % (Auto) Fergus % (Auto) Lymph # (Auto) Eos # (Auto) Abs Immat Gran (auto) Absolute Neuts (auto) Chloride Carbon Dioxide BUN Creatinine POC Glucose 193 H 296 H 289 H Random Glucose Lactic Acid Lactic Acid F/U @ 2Hr Lactic Acid F/U @ 4Hr 03/31/23 04/01/23 04/01/23 20:45 07:15 11:21 WBC RBC Hgb Hct Immature Gran % (Auto) Neut % (Auto) Lymph % (Auto) Fergus % (Auto) Lymph # (Auto) Eos # (Auto) Abs Immat Gran (auto) Absolute Neuts (auto) Chloride Carbon Dioxide BUN Creatinine POC Glucose 332 H 232 H 345 H Random Glucose Lactic Acid Lactic Acid F/U @ 2Hr Lactic Acid F/U @ 4Hr 04/01/23 04/01/23 04/02/23 15:34 19:34 07:19 WBC RBC Hgb Hct Immature Gran % (Auto) Neut % (Auto) Lymph % (Auto) Fergus % (Auto) Lymph # (Auto) Eos # (Auto) Abs Immat Gran (auto) Absolute Neuts (auto) Chloride Carbon Dioxide BUN Creatinine POC Glucose 232 H 237 H 187 H Random Glucose Lactic Acid Lactic Acid F/U @ 2Hr Lactic Acid F/U @ 4Hr 04/02/23 12:04 WBC RBC Hgb Hct Immature Gran % (Auto) Neut % (Auto) Lymph % (Auto) [place] % (Auto) Lymph # (Auto) Eos # (Auto) Abs Immat Gran (auto) Absolute Neuts (auto) Chloride Carbon Dioxide BUN Creatinine POC Glucose 315 H Random Glucose Lactic Acid Lactic Acid F/U @ 2Hr Lactic Acid F/U @ 4Hr Microbiology: Microbiology 03/30/23 15:54 Blood - Venous Blood Culture - Preliminary No growth after 48 hours. 03/30/23 15:54 Blood - Venous Blood Culture - Preliminary No growth after 48 hours. Diagnostic Findings Chest x-ray: report reviewed and image reviewed Assessment and Plan (1) Acute exacerbation of COPD with asthma: Status: Acute (2) Pneumonia: Status: Acute (3) Hypoxemia: Status: Acute Plan This 72 years old female is a definite case of bronchial asthma/COPD . She has past history. of smoking but quit in 2014 Her acute exacerbation is probably brought on by a small patch of pneumonia and right middle lobe. She is definitely improved , She may have had exercise induced hypoxemia even before, which is more evident now. Hopefully it will improve will as she recovers from her acute exacerbation. Recc . Agree with the current treatment. Prednisone taper over the next week. May be discharged home on combination of Advair and Spiriva. Albuterol HFA 2 puffs Q. 4-6 hours p.r.n. May complete course of antibiotic with as outpatient . Give her incentive spirometry device and advised to do deep breathing. Exercises at least 3 times a day Check for home oxygen, and she may need a portable unit . For the time being Patient will be followed up for pulmonary management as outpatient. Thank you for asking me to see this patient. Procedures Date of Service Date of Service: 04/02/23
[2023-04-02] MEDS: cefTRIAXone sodium 1 GM in 0.9 % Sodium Chloride 50 ML IV (16:19)
[2023-04-02 16:42] LABS: Glucose, Whole Blood 189 mg/dL (60-115)
[2023-04-02] MEDS: Azithromycin 500 MG in 0.9 % Sodium Chloride 250 ML 125 MG IV (16:53)
[2023-04-02 20:27] LABS: Glucose, Whole Blood 341 mg/dL (60-115)
[2023-04-02] MEDS: Benzonatate 100 MG CAPSULE PO (20:42)
[2023-04-02] MEDS: Montelukast Sodium 10 MG TABLET PO (20:42)
[2023-04-03 03:04] VITALS: BP 101/52; PULSE 75; RESP 18; TEMP 36.6; O2SAT 94
[2023-04-03] MEDS: methylPREDNISolone Sod Succ 40 MG/ML VIAL IVPUSH ×2 (03:26→11:40)
[2023-04-03] MEDS: Heparin Sodium,Porcine 5,000 UNIT/ML VIAL 5000 UNIT SUBCUT (03:26)
[2023-04-03 07:04] VITALS: BP 124/57; PULSE 70; RESP 18; TEMP 36; O2SAT 91
[2023-04-03 07:29] LABS: Glucose, Whole Blood 188 mg/dL (60-115)
[2023-04-03] MEDS: Albuterol Sulfate (0.083%) 2.5 MG/3 ML VIAL.NEB INHALE ×2 (07:47→12:18)
[2023-04-03 07:48] VITALS: PULSE 74; RESP 16; O2SAT 94
[2023-04-03] MEDS: Atorvastatin Calcium 10 MG TABLET PO (08:19)
[2023-04-03] MEDS: lisinopriL 10 MG TABLET PO (08:19)
[2023-04-03] MEDS: Benzonatate 100 MG CAPSULE PO (08:19)
[2023-04-03] MEDS: Escitalopram Oxalate 20 MG TABLET PO (08:19)
[2023-04-03] MEDS: Cholecalciferol (Vitamin D3) 25 MCG TABLET PO (08:20)
[2023-04-03] MEDS: Loratadine 10 MG TABLET PO (08:20)
[2023-04-03] MEDS: Gabapentin 300 MG CAPSULE PO (08:20)
[2023-04-03] MEDS: Insulin Lispro 100 UNIT/ML 3 ML VIAL SUBCUT ×2 (08:21→11:40)
[2023-04-03 11:36] LABS: Glucose, Whole Blood 480 mg/dL (60-115)
[2023-04-03 11:59] VITALS: PULSE 119; PULSE 121; PULSE 68; PULSE 93; O2SAT 86; O2SAT 87; O2SAT 90; O2SAT 94
[2023-04-03 12:19] VITALS: PULSE 94; RESP 16; O2SAT 91
--- NOTE | 2023-04-03 12:32 | P.DS_ITS ---
DS: Providers Provider Date of Service: 04/03/23 Date of admission: 03/30/23 16:46 Primary care physician: SATYA Keating Consults: 04/02/23 10:02 Consult to Pulmonology Routine Consulting Provider: Krystyna Jay Reason for consultation: copd Has provider been notified: No DS: Diagnosis Discharge Diagnosis (1) Acute exacerbation of COPD with asthma: Status: Acute (2) Pneumonia: Status: Acute (3) Hypoxemia: Status: Acute DS: Summary Hospital Course Hospital Course: 72-year-old women with past medical history of lymphedema, depression, anemia, gout, diabetes, HLD, HTN, COPD, GERD, asthma, presenting to the ED complaining of dry cough, SOB, chest discomfort with coughing x1 week. Admits to using inhalers at home without relief. Reports recent prednisone use a week ago, states as soon as finished course symptoms recurred. Denies fever, recent travel, sick contacts, pedal edema. reported sob and wheezing. In the ED, patient received albuterol, Solu-Medrol, cough suppressant, Augmentin azithromycin, Rocephin. She will be admitted for further management and treatment of acute hypoxic respiratory failure secondary to COPD exacerbation and community-acquired pneumonia. 72-year-old woman did for acute COPD exacerbation and community-acquired pneumonia. Treated with IV Rocephin and azithromycin, IV Solu-Medrol and scheduled and as needed DuoNeb treatments. She also required supplemental oxygen. She did have some episodes of hypoxia especially with ambulation oxygen saturation would go down into high 80s. She has also had a dry cough that was treated with Tessalon Perles p.r.n. and Mucinex. Plan is for patient to continue 2 more days of antibiotics, prednisone taper. She should follow-up with her voice engineer as outpatient. Patient had home O2 eval and she qualifies with 2 L of oxygen at rest and 3 L with ambulation, due to prolonged episode of shortness of breath patient was seen by voice engineer Dr. Jay who agreed with above treatment and recommend outpatient follow-up with him. SUNNI on CKD stage 3. Treated with IV fluids and resolved Hypertension. Stable blood pressure. Continue medications Mental health. Continue medications Non insulin-dependent diabetes mellitus type 2, continue Trulicity Time Attestation Discharge coordination time: Greater than 30 minutes Quality: Safe Use of Opioids Does Pt have an Active Cancer Diagnosis on the Problem List?: No Quality: Stroke Does the patient have a stroke diagnosis?: No Physical Exam Vital Signs: Vital Signs: Last Vital Signs Temp 96.8 F 04/03/23 07:04 Pulse 94 04/03/23 12:19 Resp 16 04/03/23 12:19 BP 124/57 L 04/03/23 07:04 Pulse Ox 91 L 04/03/23 07:04 O2 Del Method Nasal Cannula 04/03/23 07:04 O2 Flow Rate 3 04/03/23 07:04 BMI result Body Mass Index 33.1 Const: Other: General awake alert x3 in no acute distress. Neck no JVD. CVS regular rate rhythm, Respiratory lungs few scattered rhonchi, no respiratory distress Gastrointestinal abdomen soft, non tender, bowel sounds audible,no guarding , no rigidity. Extremities no edema. Neuro non focal Skin no rash Psych appropriate affect DS: Data Data Completed and Pending Labs on day of discharge: Laboratory Results - last 24 hr 04/02/23 04/02/23 04/03/23 16:36 20:04 07:08 POC Glucose 189 H 341 H 188 H 04/03/23 11:25 POC Glucose 480 H* Preliminary micro results at discharge 03/30/23 15:54 Blood Culture - Preliminary Blood - Venous No growth after 48 hours. 03/30/23 15:54 Blood Culture - Preliminary Blood - Venous No growth after 48 hours. Discharge Plan Discharge Anticipated Discharge Date/Time: 04/03/23 12:29 Patient Disposition: Home, Self-Care Discharge Diagnosis: COPD exacerbation Community-acquired pneumonia Acute hypoxic respiratory failure Referrals: Adenike Souza FNP [Primary Care Provider] - 1 Week Discharge Medications: New benzonatate 100 mg Capsule 100 mg PO TID Qty: 9 0RF guaifenesin [Mucinex] 600 mg Tablet Extended Release 12hr 1,200 mg PO BID Qty: 12 0RF prednisone 10 mg tablet See Taper PO DIRECTED Qty: 20 0RF Taper: Prednisone 40 mg daily for 2 Days and 0 Hour 30 mg daily for 2 Days and 0 Hour 20 mg daily for 2 Days and 0 Hour 10 mg daily for 2 Days and 0 Hour Rx Instructions: see taper instructions cefuroxime axetil 500 mg tablet 500 mg PO BID Qty: 4 0RF azithromycin 500 mg tablet 500 mg PO DAILY 2 Days Qty: 2 0RF Continued gabapentin 300 mg capsule 300 mg PO BID Qty: 60 5RF cholecalciferol (vitamin D3) 25 mcg (1,000 unit) capsule 25 mcg PO DAILY Qty: 90 1RF dapagliflozin propanediol 5 mg tablet 5 mg PO DAILY febuxostat 80 mg tablet 80 mg PO DAILY Qty: 90 3RF Flovent Diskus 50 mcg/actuation blister with device 1 inh INHALATION BID ramelteon 8 mg tablet 8 mg PO BEDTIME colchicine (gout) 0.6 mg tablet 0.6 mg PO DAILY PRN (Reason: GOUT FLARE) acetaminophen 650 mg tablet extended release 650 mg PO Q8H PRN (Reason: Pain) citalopram 40 mg tablet 20 mg PO DAILY loratadine [Allergy Relief (loratadine)] 10 mg tablet 10 mg PO DAILY montelukast 10 mg tablet 10 mg PO BEDTIME ipratropium-albuterol 0.5 mg-3 mg(2.5 mg base)/3 mL solution for nebulization 3 ml inhalation QID PRN (Reason: Wheezing) simvastatin 20 mg tablet 20 mg PO DAILY (DME) FreeStyle Lite Strips Strip See Rx Instructions Not Applicable TID Qty: 10 Rx Instructions: As directed ferrous gluconate 324 mg (37.5 mg iron) tablet 324 mg PO Q48H dexlansoprazole [Dexilant] 60 mg capsule,biphase delayed releas 60 mg PO DAILY 30 Days Qty: 30 6RF Trulicity 0.75 mg/0.5 mL pen injector 0.75 mg subcut TH albuterol sulfate 2.5 mg /3 mL (0.083 %) solution for nebulization 2.5 mg inhalation Q4H PRN (Reason: wheezing) azelastine 137 mcg (0.1 %) aerosol,spray 1 spray intranasal BID PRN (Reason: Congestion) lisinopril-hydrochlorothiazide 20-12.5 mg tablet 1 tab PO QAM Discharge Orders: Discharge Order (Routine); Ordered 04/03/23 Ordered By: Khurram Caal Diet: Advance to usual diet Activity on Discharge: As tolerated Stand Alone Forms: Patient Portal Discharge page Care Plan Goals: Take 2 L of oxygen at rest and 3 L with ambulation Take by mouth antibiotics and prednisone as ordered Health Concerns: COPD exacerbation Community-acquired pneumonia Plan of Treatment: Follow-up with primary care call for appointment Follow-up with voice engineer Dr. Pierre dunbar call for appointment Take all medications as prescribed Assessment: See discharge summary
[2023-04-03] MEDS: Insulin Lispro 100 UNIT/ML 3 ML VIAL 6 UNIT SUBCUT (12:42)
--- NOTE | 2023-04-03 12:48 | MHC.CM.PN ---
pt dcd home no services
== END 2023-04-03 13:30 | disposition home or self-care (01) | DRG 193 ==
LOC: HO.ED 16:12 → HO.EDOVER 17:03 → HO.S3 19:05
PROVIDERS: Internal Medicine; Physician Assistant; Admitting Provider Nurse Practitioner Acute Care; Emergency Provider Student in an Organized Health Care Education/Training Program; PCP Registered Nurse; Visit Provider Hospitalist
DX: J18.9 Pneumonia, unspecified organism (principal); J96.01 Acute respiratory failure with hypoxia; J44.0 Chronic obstructive pulmonary disease with (acute) lower respiratory infection; N17.9 Acute kidney failure, unspecified; J45.41 Moderate persistent asthma with (acute) exacerbation; J44.1 Chronic obstructive pulmonary disease with (acute) exacerbation; I12.9 Hypertensive chronic kidney disease with stage 1 through stage 4 chronic kidney disease, or unspecified chronic kidney disease; N18.30 Chronic kidney disease, stage 3 unspecified; E11.22 Type 2 diabetes mellitus with diabetic chronic kidney disease; M05.9 Rheumatoid arthritis with rheumatoid factor, unspecified; Z20.822 Contact with and (suspected) exposure to COVID-19; Z87.891 Personal history of nicotine dependence; Z91.040 Latex allergy status; Z85.3 Personal history of malignant neoplasm of breast; Z79.85 Long-term (current) use of injectable non-insulin antidiabetic drugs; Z79.51 Long term (current) use of inhaled steroids; Z79.899 Other long term (current) drug therapy
CPT/HCPCS: 0241U; 36415; 71046; 80048; 82947; 83605; 84484; 85025; 87040; 87502; 87635; 90686; 93005; 94640; 99285; J0456; J0696; J1643; J2920; J2930; J3475

== ENCOUNTER → 2023-03-30 16:46 | Outpatient (BNV) | payer OTHER, SELFPAY | PROVIDERS: Admitting Provider Nurse Practitioner Acute Care; Emergency Provider Student in an Organized Health Care Education/Training Program; Visit Provider Nurse Practitioner Acute Care | DX: J44.1 Chronic obstructive pulmonary disease with (acute) exacerbation (principal); J45.901 Unspecified asthma with (acute) exacerbation; J18.9 Pneumonia, unspecified organism; J96.01 Acute respiratory failure with hypoxia | CPT/HCPCS: 99223; 99232; 99233; 99239 ==

== ENCOUNTER → 2023-03-30 16:46 | Outpatient (BNV) | payer OTHER, SELFPAY | PROVIDERS: Admitting Provider Nurse Practitioner Acute Care; Emergency Provider Student in an Organized Health Care Education/Training Program; PCP Registered Nurse; Visit Provider Internal Medicine | DX: J44.1 Chronic obstructive pulmonary disease with (acute) exacerbation (principal); J45.901 Unspecified asthma with (acute) exacerbation; J18.9 Pneumonia, unspecified organism; R09.02 Hypoxemia | CPT/HCPCS: 99222 ==

== ENCOUNTER 2023-04-30 14:04 | Outpatient (AMB) | payer OTHER, SELFPAY ==
--- NOTE | 2023-04-30 14:25 | A.OFFVIS_ITS ---
Intake Vital Signs 04/30/23 14:44 Height 5 ft 5 in Weight 198 lb 10.184 oz BMI 33.1 BP 124/76 Intake Visit Reasons: yearly breast exam Intake Note: Pt states, I'm here for a breast check. no complaints Was hospitalized early March for pneumonia Phlebotomy Technologist Required: No Allergies latex [LATEX] Allergy (Intermediate, Verified 04/30/23 14:26) BLISTERS abatacept [From Orencia] Allergy (Unknown, Verified 04/30/23 14:26) Itching adalimumab [From Humira] Allergy (Verified 04/30/23 14:26) dizziness aspirin Adverse Reaction (Intermediate, Verified 04/30/23 14:26) abdominal pain Medication List - Last Reconciled 04/30/23 by Chase Carver RN acetaminophen ER 650 mg PO Q8H PRN albuterol sulfate 2.5 mg inhalation Q4H PRN azelastine 1 spray intranasal BID PRN benzonatate 100 mg PO TID blood sugar diagnostic (FreeStyle Lite Strips) As directed cholecalciferol (vitamin D3) 25 mcg PO DAILY citalopram 20 mg PO DAILY colchicine 0.6 mg PO DAILY PRN dapagliflozin propanediol 5 mg PO DAILY dexlansoprazole 60 mg PO DAILY dulaglutide (Trulicity) 0.75 mg subcut TH febuxostat 80 mg PO DAILY ferrous gluconate 324 mg PO Q48H fluticasone propionate 50 mcg/actuation (Flovent Diskus) 1 inh inhalation BID gabapentin 300 mg PO BID guaifenesin ER (Mucinex) 1,200 mg (2 x 600 mg) PO BID ipratropium-albuterol 0.5 mg-3 mg(2.5 mg base)/3 mL 3 mL inhalation QID PRN lisinopril-hydrochlorothiazide 20-12.5 mg 1 tab PO QAM loratadine (Allergy Relief (loratadine)) 10 mg PO DAILY montelukast 10 mg PO BEDTIME ramelteon 8 mg PO BEDTIME simvastatin 20 mg PO DAILY HPI HPI Comments History of Present Illness Details 72-year-old female patient returning for follow-up breast examination. She is a former patient of Dr. Melton diagnosed with right breast infiltrating ductal carcinoma, status post right breast lumpectomy with sentinel node biopsy in February 2004. Pathology revealed infiltrating ductal carcinoma, 0.7 cm, grade 1, ER/WV positive, HER2 Petros negative, 1 sentinel node negative for metastatic disease, stage I. This followed by radiation therapy and Arimidex. She reports some swelling in the right breast due to lymphedema with associated tenderness. Her most recent mammogram dated 06/16/2022 revealed no mammographic evidence of malignancy (BI-RADS 2). She is due for a yearly mammogram in 06/24/2023. She denies any new palpable mass or other concerns on self examination. [facility] Medical History Hypoxemia Pneumonia Osteoarthritis of both feet CKD (chronic kidney disease), stage III Lymphedema COVID-19 vaccine administered Hx of cardiac murmur Depression Anemia Hx of osteopenia Hx of gout Diabetes Elevated cholesterol HTN (hypertension) COPD (chronic obstructive pulmonary disease) GERD (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 reflux disease) senior living systemic steroid user Seropositive rheumatoid arthritis Asthma History of right breast cancer Surgical History Hx of hand surgery H/O cystoscopy Hx of thumb surgery H/O colonoscopy H/O local excision of skin lesion History of bilateral carpal tunnel release S/P lumpectomy, right breast History of esophagogastroduodenoscopy (EGD) Family History Father Throat cancer Mother Asthma Osteoarthritis Sister Breast cancer Social History Household Members: None Housing: Apartment Do you presently have visiting nurse or other home services: No Unable to assess alcohol history related to: Unknown Alcohol intake: never Patient Tobacco Use Status: Former Tobacco user Quit Date: 2014 Tobacco use type: Cigarette e-Cigarette/Vaping Use: Never Used service: No Current occupational status: retired 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 Female Reproductive History Menstrual Age of Menarche: 14 Review of Systems Const All systems reviewed & are unremarkable except as noted in HPI and below Denies chills, Denies fever(s) and Denies night sweats Card Denies chest pain, Denies irregular heart rhythm, Denies palpitations and Denies dyspnea Resp Denies cough, Denies hemoptysis, Denies dyspnea and Denies wheezing Denies nipple discharge Skin/Breast Reports breast skin changes, Reports breast pain, Denies breast mass, Denies change in breast shape, Denies change in pigmentation and Denies nipple discharge Endo Denies palpitations Emilio/Lymph Denies lymphadenopathy Aller/Immun Denies wheezing Physical Exam Const General: no acute distress and well developed Nutritional Appearance: well nourished Orientation/consciousness: patient oriented x3 Limitations: no limitations HEENT Head: Yes normal to inspection, Yes normocephalic and Yes atraumatic Ears: hearing grossly normal bilaterally Neck Neck: Yes no lymphadenopathy, Yes trachea midline, Yes supple and Yes no JVD Chest Other: Right breast: Lymphedema within the breast tissue, post radiation change. Well-healed incision in the upper outer quadrant and axilla with minimal volume loss. No other skin change, nipple retraction, nipple discharge, palpable mass, or enlarged lymph node. Left breast: No new skin change, nipple discharge, nipple retraction, palpable mass, or enlarged lymph nodes. GI Inspection: Yes normal to inspection Skin General skin exam: no rashes or lesions noted Neuro General: patient oriented x3 Extrem General: Yes full ROM and Yes no clubbing, cyanosis or edema Assessment & Plan Assessment & Plan (1) Invasive ductal carcinoma of right breast: Code(s): C50.911 - Malignant neoplasm of unspecified site of right female breast Plan 72-year-old female patient with a prior history of right breast lumpectomy with needle localization, sentinel node biopsy for infiltrating ductal carcinoma. Patient's most recent mammogram in 06/16/2022 revealed no mammographic evidence of malignancy (BI-RADS 2). Her next mammogram is scheduled for 06/24/2023. Examination today reveals no new suspicious findings in either breast and no evidence of recurrence disease. She does continue to have some lymphedema in the right breast which is unchanged. I recommended follow-up in 1 year sooner p.r.n.. Coding Level of Care Code Est Pt Level 3 (15189) Diagnoses Invasive ductal carcinoma of right breast C50.911
[2023-04-30 14:44] VITALS: BP 124/76; BMI 33.1
== END 2023-04-30 14:40 | disposition home or self-care (01) ==
LOC: HO.HGS 14:04
PROVIDERS: PCP Registered Nurse; Visit Provider Surgery
DX: Z85.3 Personal history of malignant neoplasm of breast (principal)
CPT/HCPCS: 99213

== ENCOUNTER → 2023-04-30 14:04 | Outpatient (BNVA) | payer OTHER, SELFPAY | PROVIDERS: PCP Registered Nurse; Visit Provider Surgery | DX: C50.911 Malignant neoplasm of unspecified site of right female breast (principal) | CPT/HCPCS: 99212 ==

== ENCOUNTER 2023-05-13 14:06 | Outpatient (AMB) | payer OTHER, SELFPAY ==
--- NOTE | 2023-05-13 14:09 | MHC.OFFVIS ---
Intake Vital Signs 05/13/23 14:10 Height 5 ft 5 in Weight 198 lb BMI 32.9 BP 104/70 Blood Pressure Location Lt brachial Position Sitting Pulse 68 Pulse Source Pulse Oximeter Pulse Oximetry (%) 98 Oxygen Delivery Method Room Air Intake Visit Reasons: COPD Intake Note: pt is here as a new patient for hospital follow up and states she feel good. Cushion Former Required: No Allergies latex [LATEX] Allergy (Intermediate, Verified 05/13/23 14:30) BLISTERS abatacept [From Orencia] Allergy (Unknown, Verified 05/13/23 14:30) Itching adalimumab [From Humira] Allergy (Verified 05/13/23 14:30) dizziness aspirin Adverse Reaction (Intermediate, Verified 05/13/23 14:30) abdominal pain Medication List - Last Reconciled 05/13/23 by Krystyna Jay MD acetaminophen ER 650 mg PO Q8H PRN albuterol sulfate 2.5 mg inhalation Q4H PRN albuterol sulfate 90 mcg/actuation inhalation azelastine 1 spray intranasal BID PRN blood sugar diagnostic (FreeStyle Lite Strips) As directed cholecalciferol (vitamin D3) 25 mcg PO DAILY citalopram 20 mg PO DAILY colchicine 0.6 mg PO DAILY PRN dapagliflozin propanediol 5 mg PO DAILY dexlansoprazole 60 mg PO DAILY dulaglutide (Trulicity) 0.75 mg subcut TH febuxostat 80 mg PO DAILY ferrous gluconate 324 mg PO Q48H fluticasone propionate 50 mcg/actuation (Flovent Diskus) 1 inh inhalation BID gabapentin 300 mg PO BID guaifenesin ER (Mucinex) 1,200 mg (2 x 600 mg) PO BID lisinopril-hydrochlorothiazide 20-12.5 mg 1 tab PO QAM loratadine (Allergy Relief (loratadine)) 10 mg PO DAILY melatonin 10 mg PO BEDTIME PRN montelukast 10 mg PO BEDTIME ramelteon 8 mg PO BEDTIME simvastatin 20 mg PO DAILY Do you need a note to return to daycare/school/sports/work: No HPI COPD HPI Details This 72 years old very pleasant female comes today for follow-up. About 4 weeks ago she was admitted in the hospital with an acute exacerbation of what we thought COPD and a patch of pneumonia. She got better with routine treatment consisting of antibiotic and prednisone, But at the time of discharge she was still having hypoxemia on walking, so she was sent home on oxygen with portable unit. However since her discharge home she has really not use the oxygen at all. She claims that she has no residual cough or wheezing. She claims that she can walk around without getting shortness of breath. And she does not feel that she is going to need oxygen. She has past history of smoking but quit in 2014. 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 Seropositive rheumatoid arthritis Asthma History of right breast cancer Surgical History Hx of hand surgery H/O cystoscopy Hx of thumb surgery H/O colonoscopy H/O local excision of skin lesion History of bilateral carpal tunnel release S/P lumpectomy, right breast History of esophagogastroduodenoscopy (EGD) Family History Father Throat cancer Mother Asthma Osteoarthritis Sister Breast cancer Social History Household Members: None Housing: Apartment Do you presently have visiting nurse or other home services: No Unable to assess alcohol history related to: Unknown Alcohol intake: never Patient Tobacco Use Status: Former Tobacco user Quit Date: 2014 Tobacco use type: Cigarette e-Cigarette/Vaping Use: Never Used service: No Current occupational status: retired 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 Female Reproductive History Menstrual Age of Menarche: 14 Review of Systems Const All systems reviewed & are unremarkable except as noted in HPI and below Eyes Reports no additional complaints ENT Reports no additional complaints Card Denies chest pain, Denies irregular heart rhythm and Denies leg edema Resp Reports as per HPI GI Reports no additional complaints Reports no additional complaints Musc Reports no additional complaints Skin/Breast Reports system reviewed and no additional complaints, except as documented Neuro Reports no additional complaints Psych Reports no additional complaints Endo Reports no additional complaints Emilio/Lymph Reports no additional complaints Physical Exam Vital Signs: Last Vital Signs Pulse 68 05/13/23 14:10 BP 104/70 05/13/23 14:10 Pulse Ox 98 05/13/23 14:10 Oxygen Delivery Method Room Air 05/13/23 14:10 BMI result Body Mass Index 32.9 Const General: healthy appearing, comfortable, no acute distress, alert and awake Orientation/consciousness: patient oriented x3 HEENT Head: Yes normal to inspection General nose exam: No nasal polyps present and No nasal discharge present Face and sinus: Yes sinuses nontender Mouth: oropharynx normal Throat: Yes posterior oropharynx normal Eyes General: appearance normal, both eyes and all related structures Neck Neck: Yes normal visual inspection, Yes no lymphadenopathy, Yes trachea midline and Yes no JVD Thyroid: Thyroid normal Chest Chest palpation & inspection: normal inspection of the chest, normal palpation of entire chest wall and no tenderness Resp Other: Percussion note is resonant, breath sounds are only slightly distant. She has no audible wheezing or crepitations Cardio Palpation: normal PMI Rate: regular rate Rhythm: regular rhythm Heart sounds: no gallops and no murmurs Peripheral pulses: Peripheral pulses 2+ throughout GI Palpation (GI): Soft to palpation, nontender, No hepatosplenomegaly present and no masses Auscultation: normal bowel sounds Back/Spine/Pelvis Thoracic/Lumbar Spine: thoracic and lumbar spine normal to inspection Skin General skin exam: no rashes or lesions noted Neuro General: patient oriented x3 and no focal motor deficits Cranial nerves: Yes CN's II-XII intact bilaterally Extrem General: Yes normal to inspection, Yes no clubbing, cyanosis or edema and Yes no calf tenderness Psych Appearance: grossly normal and well kempt Speech and movement: Normal speech and movement present Office Procedures 6 Minute Walk Time:: 14:40 SPO2 % at rest: 95 Pulse at rest: 67 SPO2 % during excercise: 94 Pulse during excercise: 94 SPO2 % after excercise: 96 Pulse after excercise: 84 Distance in yards walked: 400 Ileana Score: 1 Performance Observations:: Mora walked on level ground without assistance, she walked on room air for the entire walk. No supplemental oxygen needed. 29060 - 6 Minute Walk Spirometry Testing Spirometry Comments: Spirometry done in the office, Dr. Jay has the results results scanned to her chart. 74871- Spirometry Results Reviewed Results Reviewed: SPIROMETRY NORMAL NO OBS DISORDER . 6 MINUTES WALK TEST NORMAL , NO DESATURATION . Assessment & Plan Assessment & Plan (1) COPD (chronic obstructive pulmonary disease): Comment: SEE BELOW Code(s): J44.9 - Chronic obstructive pulmonary disease, unspecified Plan: SEE BELOW (2) History of smoking at least 1 pack per day for at least 30 years: Comment: SEE BELOW Code(s): Z87.891 - Personal history of nicotine dependence Plan: THIS 72 YEARS OLD VERY PLEASANT FEMALE DID SMOKE IN THE PAST BUT QUIT ABOUT 8 YEARS AGO. SHE WAS TREATED IN THE HOSPITAL LAST MONTH FOR POSSIBLE ACUTE EXACERBATION OF COPD, SECONDARY TO PNEUMONIA. AFTER TREATMENT WHEN DISCHARGE HOME SHE STILL REQUIRED PORTABLE OXYGEN. SINCE HER DISCHARGE HOME SHE HAS NOT USE THE OXYGEN. TODAY THE EXAMINATION WELL SPIROMETRY TEST INDICATED THAT SHE DOES NOT HAVE ANY SIGNIFICANT DEGREE OF COPD. 6 MINUTES WALK BEING NORMAL INDICATES THAT HER OXYGENATION IS OKAY, AND SHE DOES NOT NEED OXYGEN. THE SEVERE SENDING THE ORDER TO [facility] TO REMOVE THE OXYGEN APPARATUS FROM HER HOUSE. SHE DOES NOT NEED ANY. BRONCHODILATOR INHALERS. SHE DOES NOT NEED ANY REGULAR FOLLOW-UP HERE BUT WE TOLD HER TO CALL IF THERE IS ANY RECURRENCE OF RESPIRATORY SYMPTOMS. Orders: Orders AMB 6 minute walk Today J44.9 - Chronic obstructive pulmonary disease, unspecified AMB Spirometry Testing Today J44.9 - Chronic obstructive pulmonary disease, unspecified Coding Level of Care Code Est Pt Level 4 (84587) Diagnoses COPD (chronic obstructive pulmonary disease) J44.9 History of smoking at least 1 pack per day for at least 30 years Z87.891 CPT Codes Coding ([id number]) Spirometry - CPT: 05059- Spirometry ([id number])
[2023-05-13 14:10] VITALS: BP 104/70; PULSE 68; O2SAT 98; BMI 32.9
[2023-05-13 14:57] VITALS: PULSE 67; O2SAT 95
== END 2023-05-13 14:51 | disposition home or self-care (01) ==
PROVIDERS: PCP Registered Nurse; Visit Provider Internal Medicine
DX: J44.9 Chronic obstructive pulmonary disease, unspecified (principal); Z87.891 Personal history of nicotine dependence
CPT/HCPCS: 94010; 94618; 99214

== ENCOUNTER → 2023-05-13 14:06 | Outpatient (BNVA) | payer OTHER, SELFPAY | PROVIDERS: PCP Registered Nurse; Visit Provider Internal Medicine | DX: J44.9 Chronic obstructive pulmonary disease, unspecified (principal); Z87.891 Personal history of nicotine dependence | CPT/HCPCS: 94010; 94618; 99212 ==

== ENCOUNTER 2023-06-12 11:49 | Outpatient (AMB) | payer OTHER, SELFPAY ==
--- NOTE | 2023-06-12 11:50 | MHC.OFFVIS ---
Intake Vital Signs 06/12/23 12:11 Height 5 ft 5 in Weight 200 lb 9.93 oz BMI 33.4 BP 104/55 L Blood Pressure Location Lt brachial Position Sitting Pulse 73 Intake Visit Reasons: 6 month fu Intake Note: Patient presents to in office visit today in 6 months follow up for GERD. Patient reports doing well and denies having any GI symptoms. Card Mounter Required: No Accompanied by: Self / Same As Patient Allergies latex [LATEX] Allergy (Intermediate, Verified 06/12/23 12:16) BLISTERS abatacept [From Orencia] Allergy (Unknown, Verified 06/12/23 12:16) Itching adalimumab [From Humira] Allergy (Verified 06/12/23 12:16) dizziness aspirin Adverse Reaction (Intermediate, Verified 06/12/23 12:16) abdominal pain HPI 6 month fu HPI Details Assessment & Plan (1) GERD (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 reflux disease): ?Code(s): K21.9 - Gastro-esophageal reflux disease without esophagitis ?Plan: She continues to do well with her Dexilant She has not new health problems to report she is not due for colonoscopy screening until 2028. ROV 6 mos ? ? ? Medications: Refilled dexlansoprazole (D exilant) 60 mg? PO DAILY 30 days 30 caps 6RF G K21.9 - Gastro-eso phageal reflux dis ease without esoph agitis TODAY'S VISIT She is recovering well form her pneumonia, but she stopped smoking about 8 year ago!! She contines to do well on her Dexliant with good control of her GERD> ROV 6 mos. 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 Seropositive rheumatoid arthritis Asthma History of right breast cancer Surgical History Hx of hand surgery H/O cystoscopy Hx of thumb surgery H/O colonoscopy H/O local excision of skin lesion History of bilateral carpal tunnel release S/P lumpectomy, right breast History of esophagogastroduodenoscopy (EGD) Family History Father Throat cancer Mother Asthma Osteoarthritis Sister Breast cancer Social History Household Members: None Housing: Apartment Do you presently have visiting nurse or other home services: No Unable to assess alcohol history related to: Unknown Alcohol intake: never Patient Tobacco Use Status: Former Tobacco user Quit Date: 2014 Tobacco use type: Cigarette e-Cigarette/Vaping Use: Never Used service: No Current occupational status: retired 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 Female Reproductive History Menstrual Age of Menarche: 14 Review of Systems Const Denies fatigue, Denies fever(s), Denies night sweats, Denies poor appetite and Denies weight loss Eyes Details: glasses Reports requires corrective lenses ENT Reports Normal hearing present, Denies dental pain, Denies dysphagia, Denies hearing loss, Denies mouth pain, Denies odynophagia, Denies throat swelling, Denies tongue swelling and Reports other (Dentition adequate) Card Reports no additional complaints Resp Reports no additional complaints GI Denies abdominal pain, Denies melena, Denies bloating, Denies hematochezia, Denies constipation, Denies GI cramping, Denies dysphagia, Denies excessive flatus, Denies early satiety, Reports heartburn, Denies diarrhea, Denies nausea, Denies odynophagia, Denies vomiting and Denies hematemesis Skin/Breast Denies pruritus, Denies lesions, Denies rash and Denies jaundice Neuro Reports Normal hearing present and Denies Abnormal speech present Endo Denies fatigue Aller/Immun Denies throat swelling and Denies tongue swelling Physical Exam Vital Signs: Last Vital Signs Pulse 73 06/12/23 12:11 BP 104/55 L 06/12/23 12:11 BMI result Body Mass Index 33.4 Const General: cooperative, no acute distress, well developed and well groomed Nutritional Appearance: well nourished and obese Orientation/consciousness: oriented to person, oriented to place and oriented to time Limitations: No language barrier HEENT Head: Yes normocephalic and Yes atraumatic Eyes General: appearance normal, both eyes and all related structures Pupils: Equal, round and reactive pupils present Neck Neck: Yes normal visual inspection and Yes no lymphadenopathy Thyroid: Thyroid normal Resp Effort & Inspection: normal respiratory effort and able to speak in complete sentences Auscultation: clear to auscultation bilaterally Cardio Rate: regular rate Rhythm: regular rhythm Heart sounds: Normal, physiologic split S2 sound present Peripheral pulses: radial pulses present and posterior tibial pulses present GI Inspection: No distended, Yes Abdominal panniculus present and Yes obesity Palpation (GI): Soft to palpation, nontender, no guarding, not rigid and No hepatosplenomegaly present Percussion: Yes normal to percussion Auscultation: normal bowel sounds Rectal Exam - Female: deferred Skin General skin exam: no rashes or lesions noted, turgor normal, skin not dry, no jaundice, No spider nevi and no striae Rashes: no rashes Nails: normal Neuro General: oriented to person, oriented to place and oriented to time Cranial nerves: Yes Equal, round and reactive pupils present and Yes Normal hearing present Speech: No Abnormal speech present Extrem General: Yes normal to inspection, No clubbing, No cyanosis and No edema Psych Appearance: grossly normal and well kempt Mental Status: mental status grossly normal Speech and movement: Normal speech and movement present Affect: normal affect Attitude: cooperative Thought process: Normal thought process present and not confabulating Thought content: Normal thought content present Insight: Fair insight present (Psych) Judgement: Fair judgement present (Psych) Assessment & Plan Assessment & Plan (1) GERD (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 reflux disease): Code(s): K21.9 - Gastro-esophageal reflux disease without esophagitis (2) Former smoker: Comment: quit 8 years ago Code(s): Z87.891 - Personal history of nicotine dependence Plan She is recovering well form her pneumonia, but she stopped smoking about 8 year ago!! She contines to do well on her Dexliant with good control of her GERD> ROV 6 mos. Coding Level of Care Code Est Pt Level 3 (48593) Diagnoses GERD (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 reflux disease) K21.9 Former smoker Z87.891
[2023-06-12 12:11] VITALS: BP 104/55; PULSE 73; BMI 33.4
== END 2023-06-12 12:42 | disposition home or self-care (01) ==
PROVIDERS: PCP Registered Nurse; Visit Provider Nurse Practitioner
DX: K21.9 Gastro-esophageal reflux disease without esophagitis (principal); Z87.891 Personal history of nicotine dependence
CPT/HCPCS: 99213

== ENCOUNTER → 2023-06-12 11:49 | Outpatient (BNVA) | payer OTHER, SELFPAY | PROVIDERS: PCP Registered Nurse; Visit Provider Nurse Practitioner | DX: K21.9 Gastro-esophageal reflux disease without esophagitis (principal); Z87.891 Personal history of nicotine dependence | CPT/HCPCS: 99212 ==

== ENCOUNTER 2023-06-24 14:49 | Outpatient (REF) | payer OTHER, SELFPAY ==
--- NOTE | ~2023-06-24 | MM_ITS ---
EXAMINATION: MM SCREENING DIGITAL BREAST TOMOSYNTHESIS, BILATERAL CLINICAL INFORMATION: Screening. Asymptomatic. The patient is status post breast conservation therapy for right breast cancer diagnosed in 2004. COMPARISON: Mammography: This study is compared with prior exams dating back to 2019. TECHNIQUE: Digital breast tomosynthesis is performed in both the craniocaudal and mediolateral oblique views along with computer-aided detection (CAD). Synthesized 2D images are generated from the tomosynthesis. FINDINGS: There are scattered areas of fibroglandular density (ACR BI-RADS breast composition Category b). There are grouped calcifications in the 3:00 position of the deep third of the right breast. These warrant additional mammographic imaging with magnification. There is unchanged, chronic, mild, diffuse skin thickening of the right breast and postsurgical change in the deep third of the superior aspect of the right breast. There are also few, unchanged coarse dystrophic calcifications in the treatment bed. These are benign. In the left breast, there are no significant masses, abnormal calcifications, or other abnormalities. MM/MM tomosynthesis screening BI IMPRESSION: Grouped calcifications of the 3:00 region of the right breast warrant additional mammographic imaging with magnification. Upper outer quadrant findings in the right breast related to prior breast cancer treatment. No mammographic signs of malignancy left breast. ASSESSMENT: BI-RADS BI-RADS 0 - Incomplete: Needs additional Imaging. RECOMMENDATION: Additional views of the right breast. Radiology department staff will contact the patient for additional imaging. Additional Imaging required This examination should not preclude the clinical evaluation of a suspicious palpable abnormality. This patient's information was entered into a reminder system with a target due date for their next mammogram.
== END 2023-06-24 14:50 | disposition home or self-care (01) ==
LOC: HO.MAMMO 14:49
PROVIDERS: PCP Registered Nurse; Visit Provider Emergency Medicine
DX: Z12.31 Encounter for screening mammogram for malignant neoplasm of breast (principal)
CPT/HCPCS: 77063; 77067

== ENCOUNTER → 2023-06-24 15:00 | Outpatient (BNV) | payer OTHER, SELFPAY | PROVIDERS: PCP Registered Nurse; Visit Provider Radiology Diagnostic Radiology | DX: Z12.31 Encounter for screening mammogram for malignant neoplasm of breast (principal) | CPT/HCPCS: 77063; 77067 ==

== ENCOUNTER 2023-07-15 18:09 | Inpatient (IN) | payer OTHER, SELFPAY ==
--- NOTE | ~2023-07-15 | CT_ITS ---
EXAMINATION: CT CHEST WITHOUT CONTRAST CLINICAL INFORMATION: Shortness of breath COMPARISON: Previous chest x-ray from earlier the same day TECHNIQUE: Multidetector volumetric CT imaging of the chest was done. Axial MIP volume rendering provided. Sagittal and coronal reformatted images were obtained. This CT examination was performed using dose optimization techniques as appropriate, variously including the following: *Automated exposure control *Adjustment of mA and/or kV according to patient size (this includes techniques or standardized protocols for targeted exams where dose is matched to indication/reason for exam; i.e. extremities or head) *Use of iterative reconstruction technique DLP: 346 mGy-cm FINDINGS: LUNGS: Lingular atelectasis or small infiltrate. Subsegmental atelectasis in both lower lobes. Bronchial wall thickening and soft tissue opacification in both lower lobes. MEDIASTINUM: The mediastinum is normal. CORONARY ARTERY CALCIFICATION: Mild PLEURA: There is no pleural effusion. No pleural mass or thickening. AXILLA: No lymphadenopathy. UPPER ABDOMEN: Unremarkable. OSSEOUS STRUCTURES: Unremarkable. CT/CT chest wo IV con IMPRESSION: Lingular atelectasis or small infiltrate. Subsegmental atelectasis in both lower lobes. Bronchial wall thickening and soft tissue opacification in both lower lobes. Fleischner guidelines were followed.
--- NOTE | ~2023-07-15 | XR_ITS ---
EXAMINATION: XR CHEST CLINICAL INFORMATION: Asthma COMPARISON: Chest radiograph from 03/30/2023 TECHNIQUE: 2 views of the chest were obtained. FINDINGS: Increased radiopacity in the left lung base may reflect round atelectasis though evolving infectious/inflammatory etiology not excluded. Chronic interstitial lung markings. No pneumothorax. Trachea is midline. Cardiac mediastinal silhouette is not enlarged. Aorta demonstrates tortuosity with atherosclerotic calcifications. No large pleural effusion. Degenerative changes of the thoracolumbar spine. Soft tissues are unremarkable. XR/XR chest 2V IMPRESSION: 1. Increased radiopacity in the left lung base may reflect round atelectasis though evolving infectious/inflammatory etiology not excluded. 2. Chronic interstitial lung markings.
--- NOTE | 2023-07-15 18:52 | ED.ASTHMA ---
HPI - Asthma General Chief Complaint: Dyspnea Stated Complaint: asthma exacerbation, referred by PCP Time Seen by Provider: 07/15/23 20:07 Source: patient Mode of arrival: ambulatory Limitations: no limitations History of Present Illness HPI Narrative: Patient with history of anemia, diabetes, hypertension, COPD, asthma been having increased shortness of breath for last 2 weeks with mostly dry cough no fever no chills today patient was feeling more short of breath paramedics came to her house noticed pulse ox 87% while ambulating and 90% at rest , received IM Solu-Medrol and nebulizing treatment prior to arrival on arrival patient is saturating 91% at room air patient not on oxygen at home , last time was sick about 2 months ago. no fever no chills no other family member sick Related Data Home Medications Medication Instructions Recorded Confirmed acetaminophen 650 mg 650 mg PO Q8H PRN Pain 02/25/20 04/30/23 tablet,extended release citalopram 40 mg tablet 20 mg PO DAILY 02/25/20 07/16/23 loratadine 10 mg tablet (Allergy 10 mg PO DAILY 02/25/20 04/30/23 Relief (loratadine)) montelukast 10 mg tablet 10 mg PO BEDTIME 02/25/20 04/30/23 simvastatin 20 mg tablet 20 mg PO DAILY 02/25/20 04/30/23 blood sugar diagnostic (FreeStyle #10 ea 04/04/21 01/05/23 Lite Strips) dapagliflozin propanediol 5 mg 5 mg PO DAILY 03/19/22 04/30/23 tablet ferrous gluconate 324 mg (37.5 mg 324 mg PO Q48H 10/09/22 04/30/23 iron) tablet albuterol sulfate 2.5 mg/3 mL 2.5 mg inhalation Q4H PRN wheezing 01/05/23 07/16/23 (0.083 %) solution for nebulization azelastine 137 mcg (0.1 %) nasal 1 spray intranasal BID PRN 01/05/23 04/30/23 spray aerosol Congestion dulaglutide 0.75 mg/0.5 mL 0.75 mg subcut TH 01/05/23 04/30/23 subcutaneous pen injector (Trulicity) lisinopril 20 1 tab PO QAM 01/05/23 04/30/23 mg-hydrochlorothiazide 12.5 mg tablet fluticasone propionate 50 1 inh inhalation BID 03/30/23 04/30/23 mcg/actuation blister powder for inhalation (Flovent Diskus) ramelteon 8 mg tablet 8 mg PO BEDTIME 03/30/23 04/30/23 albuterol sulfate 90 mcg/actuation inhalation NEEDED 05/13/23 aerosol inhaler melatonin 10 mg capsule 10 mg PO BEDTIME PRN insomnia 05/13/23 colchicine 0.6 mg tablet 0.6 mg PO NEEDED PRN Pain 07/16/23 07/16/23 dapagliflozin propanediol 5 mg 5 mg PO DAILY 07/16/23 07/16/23 tablet (Farxiga) dulaglutide 0.75 mg/0.5 mL 0.75 mg subcut QWEEK 07/16/23 07/16/23 subcutaneous pen injector (Trulicity) ferrous gluconate 324 mg (37.5 mg mg PO 07/16/23 iron) tablet gabapentin 300 mg capsule 300 mg PO TID 07/16/23 07/16/23 lisinopril 20 1 tab PO DAILY 07/16/23 07/16/23 mg-hydrochlorothiazide 12.5 mg tablet simvastatin 20 mg tablet 20 mg PO QPM 07/16/23 07/16/23 Previous Rx's Medication Instructions Recorded gabapentin 300 mg capsule 300 mg PO BID #60 caps 01/08/21 cholecalciferol (vitamin D3) 25 25 mcg PO DAILY #90 caps 12/03/21 mcg (1,000 unit) capsule febuxostat 80 mg tablet 80 mg PO DAILY #90 tabs 01/12/23 dexlansoprazole 60 mg 60 mg PO DAILY #90 caps 04/29/23 capsule,biphase delayed release Allergies Allergy/AdvReac Type Severity Reaction Status Date / Time latex [LATEX] Allergy Intermediate BLISTERS Verified 07/15/23 18:52 abatacept [From Orencia] Allergy Unknown Itching Verified 07/15/23 18:52 adalimumab [From Humira] Allergy dizziness Verified 07/15/23 18:52 aspirin AdvReac Intermediate abdominal Verified 07/15/23 18:52 pain Review of Systems Review of Systems: Yes all other systems are reviewed and are negative PMFSH Past Medical History Medical History Smoker History of Helicobacter pylori infection History of smoking at least 1 pack per day for at least 30 years Hypoxemia Pneumonia Osteoarthritis of both feet CKD (chronic kidney disease), stage III Lymphedema COVID-19 vaccine administered Hx of cardiac murmur Depression Anemia Hx of osteopenia Hx of gout Diabetes Elevated cholesterol HTN (hypertension) COPD (chronic obstructive pulmonary disease) GERD (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 reflux disease) 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 Seropositive rheumatoid arthritis Asthma History of right breast cancer Surgical History Hx of hand surgery H/O cystoscopy Hx of thumb surgery H/O colonoscopy H/O local excision of skin lesion History of bilateral carpal tunnel release S/P lumpectomy, right breast History of esophagogastroduodenoscopy (EGD) Family History Family History Father Throat cancer Mother Asthma Osteoarthritis Sister Breast cancer Social History Social History Household Members: None Housing: Apartment Do you presently have visiting nurse or other home services: No Unable to assess alcohol history related to: Unknown Alcohol intake: never Patient Tobacco Use Status: Former Tobacco user Quit Date: 2014 Tobacco use type: Cigarette Smoked in Last 30 Days: No e-Cigarette/Vaping Use: Never Used Use of substances other than those prescribed or required for medical reasons: No Advance Directives: No Advance Directives Information Provided: No service: No Current occupational status: retired 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 Oriented X3. No acute distress. Eyes: No pallor or icterus ENT: Pharynx normal. Oral Mucosa moist Neck: Normal inspection. Neck supple. CVS: Normal heart rate and rhythm. Pulses normal. Respiratory: No respiratory distress. Equal air entry bilateral, bilateral prolonged expiration with wheezing occasional crackles Abdomen: Soft and nontender. Bowel sounds are present, no mass palpable, no CVA tenderness Skin: Skin warm and dry. Normal skin color. Normal skin turgor. Extremities: No lower extremity edema. No calf tenderness Neuro: Oriented X 3. No motor deficit. Course Course Course Narrative: RME: 73 year-old F w/ PMHx COPD, Asthma, GERD, Anemia, Lymphedema, CKD, OA presenting to the ED c/o SOB & asthma exacerbation x2 weeks, sent in by PCP. PCP had visiting nurse go to house [employer] and patient was noted to be 90% on RA, 87% w/ambulation, was given Duoneb, 125mg Solumedrol & 500mg Azithro [employer]. Using inhalers/machine w/o relief. +dry cough. denies CP denies travel, fever, sick contacts. last used prednisone about 2mos ago 90-92% on RA in triage, lungs w/diminished BS EKG, Viral testing, CXR ordered Full HPI, ROS and PE to be performed by primary ED provider. Medications Administered Discontinued Medications Generic Name Dose Route Start Last Admin Trade Name Freq PRN Reason Stop Dose Admin Albuterol Sulfate 5 mg 07/15/23 23:30 07/15/23 23:58 Albuterol Sulfate (0.083%) 2.5 Mg/3 Ml Vial.Neb INHALE 07/15/23 23:31 5 mg ONCE ONE Administration Albuterol Sulfate 2.5 mg/ 0 mg 07/15/23 20:14 07/15/23 20:40 Albuterol/Ipratropium 3 ml INHALE 07/15/23 20:15 5 dose ONCE ONE Administration Magnesium Sulfate 2 gm in 50 mls @ 150 mls/hr 07/15/23 23:30 07/16/23 00:29 Magnesium Sulfate/H2o IV 07/15/23 23:49 Infused ONCE ONE Infusion Medical Decision Making Medical Decision Making [facility] Narrative: Patient with asthma/COPD significant hypoxia on ambulating in the ER pulse ox dropped to 88% again patient is not on any oxygen at home CT chest is negative for acute infiltrate will admit patient for acute hypoxia with chronic lung disease patient does not have any bacterial infection likely has viral etiology for worsening of her chronic lung disease patient received nebulizing treatments steroids and IV magnesium Differential Diagnosis Differential Diagnoses: The differential diagnosis associated with the presentation includes Chronic lung disease/pneumonia/hypoxia/pneumothorax/CHF/viral pneumonia/COVID/RSV/flu Admission/Observation Consideration of admission/observation: Escalation of care including admission/observation considered Consult Healthcare Provider Management of the patient was discussed with: Hospitalist Lab Data MDM Lab Attestation statement: I reviewed the patient's lab results. 07/15/23 20:24 07/15/23 20:24 Labs: Lab Results 07/15/23 07/15/23 Range/Units 20:24 21:11 WBC 10.7 (4.8-10.8) X10*3/uL RBC 4.51 (4.20-5.50) X10*6/uL Hgb 13.1 (12.0-16.0) g/dl Hct 39.0 (37.0-47.0) % MCV 86.5 (80.0-98.0) fL MCH 29.0 (27.0-33.0) pg MCHC 33.6 (31.0-35.0) g/dl RDW 13.9 (11.0-16.0) % Plt Count 296 (160-400) X10*3/uL MPV 9.5 (9.4-12.3) fL Immature Gran % (Auto) 0.4 (0.0-0.4) % Neut % (Auto) 88.4 H (45-73) % Lymph % (Auto) 9.3 L (20-40) % [place] % (Auto) 1.1 L (2-11) % Eos % (Auto) 0.4 (0-4) % Baso % (Auto) 0.4 (0-2) % Lymph # (Auto) 1.0 L (1.2-4.9) X10*3/uL [place] # (Auto) 0.1 (0.1-1.2) X10*3/uL Eos # (Auto) 0.0 (0.0-0.4) X10*3/uL Baso # (Auto) 0.0 (0.0-0.2) X10*3/uL Abs Immat Gran (auto) 0.04 H (0.00-0.03) X10*3/uL Absolute Neuts (auto) 9.5 H (2.0-8.3) x10*3/uL Absolute Nucleated RBC 0.000 (0.0-0.012) X10*3/uL Nucleated RBC % (auto) 0.0 (0.0-0.2) /100WBC PT 11.9 (11.1-13.3) SEC INR 1.0 (0.9-1.1) VBG pH 7.38 (7.32-7.43) VBG pCO2 31 mmHg VBG pO2 98 mmHg VBG HCO3 18 L (22-26) mmol/L VBG O2 Saturation 98.0 % VBG Base Excess -5.0 mmol/L Sodium 140 (135-145) mmol/L Potassium 4.2 (3.3-5.1) mmol/L Chloride 109 H (96-108) mmol/L Carbon Dioxide 20 L (22-29) mmol/L Anion Gap 15 (12-20) BUN 21 H (9-16) mg/dL Creatinine 1.38 (0.5-1.4) mg/dL Estim Creat Clear Calc 41.3 Estimated GFR 38 Random Glucose 170 H (60-115) mg/dL Calcium 10.1 D (8.4-10.2) mg/dL Magnesium 2.1 (1.6-2.6) mg/dL Total Bilirubin 0.3 (0.0-1.0) mg/dL Direct Bilirubin 0.1 (0.0-0.5) mg/dL AST 20 (5-31) U/L ALT 18 (0-31) U/L Alkaline Phosphatase 108 (39-117) U/L Troponin I High Sens < 2.7 (<3.5-17.0) ng/L B-Natriuretic Peptide 21 (<100) pg/mL Total Protein 8.0 (6.5-8.0) g/dL Albumin 4.6 (3.5-5.0) g/dL Influenza Type A (PCR) NEGATIVE (Negative) Influenza Type B (PCR) NEGATIVE (Negative) RSV RNA Qual (PCR) NEGATIVE (Negative) SARS-CoV-2 RNA (RT-PCR) NEGATIVE (Negative) Independent Interpretation I performed an independent interpretation of an: EKG Interpretation: Normal sinus rhythm heart rate 93 beats per minute normal interval normal axis no acute ST T wave changes no acute ischemia Critical Care Time Critical Care Time Critical Care Time: Yes Total Critical Care Time: 45 Attestation: The patient was critically ill with a high probability of imminent or life threatening deterioration. I spent greater than ?50??minutes of discontinuous time evaluating the patient,delivering critical care at the bedside, discussing and evaluating pertinent data with consultants. Critical care time does not include time spent performing separately billable procedures or teaching. Total time spent performing critical care was 45???minutes. Discharge Plan Discharge Clinical Impression: Acute and chronic respiratory failure with hypoxia, Chronic lung disease Patient Disposition: Admitted As Inpatient
[2023-07-15 18:53] VITALS: BP 96/60; PULSE 96; RESP 16; TEMP 36.1; O2SAT 91; BMI 32.9
--- NOTE | 2023-07-15 18:58 | ECG_ITS ---
Test Reason : DYSPENIA Blood Pressure : / mmHG Vent. Rate : 093 BPM Atrial Rate : 093 BPM P-R Int : 150 ms QRS Dur : 072 ms QT Int : 360 ms P-R-T Axes : 051 011 040 degrees QTc Int : 447 ms Normal sinus rhythm Normal ECG When compared with ECG of 30-MAR-2023 15:38, No significant change was found Referred By: Ashwini Kenny Electronically Signed By:NINA LIU MD
[2023-07-15 20:34] LABS: MANUAL DIFF FLAG NO
[2023-07-15 20:37] LABS: Basophils Percent Auto 0.4 % (0-2); Eosinophils Percent Auto 0.4 % (0-4); Hemoglobin 13.1 g/dl (12.0-16.0); Imm Gran Abs Auto 0.04 X10*3/uL (0.00-0.03); Imm Gran Pct Auto 0.4 % (0.0-0.4); Lymphocytes Percent Auto 9.3 % (20-40); Mean Corpuscular HGB Conc 33.6 g/dl (31.0-35.0); Mean Corpuscular Volume 86.5 fL (80.0-98.0); Mean Platelet Volume 9.5 fL (9.4-12.3); Monocytes Absolute Auto 0.1 X10*3/uL (0.1-1.2); Monocytes Percent Auto 1.1 % (2-11); Neutrophils Absolute Auto 9.5 x10*3/uL (2.0-8.3); Neutrophils Percent Auto 88.4 % (45-73); Platelet Count 296 X10*3/uL (160-400); Red Blood Count 4.51 X10*6/uL (4.20-5.50); Red Cell Distribution Width 13.9 % (11.0-16.0); White Blood Count 10.7 X10*3/uL (4.8-10.8)
[2023-07-15] MEDS: Albuterol Sulfate 2.5 MG, Albuterol/Iprat 2.5/0.5MG 3 ML 3 ML INHALE (20:40)
[2023-07-15 20:42] LABS: Prothrombin Time 11.9 SEC (11.1-13.3)
[2023-07-15 20:59] LABS: Alanine Aminotransferase 18 U/L (0-31); Albumin Level 4.6 g/dL (3.5-5.0); Alkaline Phosphatase 108 U/L (39-117); Anion Gap 15 (12-20); Aspartate Amino Transferase 20 U/L (5-31); Bilirubin Direct 0.1 mg/dL (0.0-0.5); Bilirubin Total 0.3 mg/dL (0.0-1.0); Blood Urea Nitrogen 21 mg/dL (9-16); Calcium 10.1 mg/dL (8.4-10.2); Carbon Dioxide 20 mmol/L (22-29); Chloride 109 mmol/L (96-108); Creatinine Clr Calc Pharmacy 41.3; Estimated Glomerular Filt Rate 38; Glucose Random 170 mg/dL (60-115); Magnesium 2.1 mg/dL (1.6-2.6); Potassium 4.2 mmol/L (3.3-5.1); Sodium 140 mmol/L (135-145)
[2023-07-15 21:01] LABS: B Type Natriuretic Peptide 21 pg/mL (<100)
[2023-07-15 21:06] LABS: Troponin-I High Sensitivity < 2.7 ng/L (<3.5-17.0)
[2023-07-15 21:14] LABS: Influenza A PCR NEGATIVE (Negative); Influenza B PCR NEGATIVE (Negative); Resp Syncy Virus RNA Qual PCR NEGATIVE (Negative); SARS COV2 PCR INHOUSE NEGATIVE (Negative)
[2023-07-15 21:16] LABS: VBG HCO3 18 mmol/L (22-26); VBG pCO2 31 mmHg; VBG pH 7.38 (7.32-7.43); VBG pO2 98 mmHg
[2023-07-15 21:17] LABS: Venous Blood Gas Refer to POC result
[2023-07-15] MEDS: Magnesium Sulfate/H2O 2 GM/50 ML PIGGYBACK IV (23:50)
[2023-07-15 23:53] VITALS: BP 116/63; PULSE 108; RESP 90; TEMP 36.6; O2SAT 90
[2023-07-15] MEDS: Albuterol Sulfate (0.083%) 2.5 MG/3 ML VIAL.NEB 5 MG INHALE (23:58)
[2023-07-15 23:59] VITALS: PULSE 109; RESP 18; O2SAT 92
[2023-07-16] VITALS (9 sets, daily range): BP systolic 120–126; BP diastolic 58–64; PULSE 94–114; RESP 16–20; TEMP 36–36.8; O2SAT 90–94; BMI 33.5
--- NOTE | 2023-07-16 00:27 | PC.NURSE ---
Contact daughter if any major changes; Suzanna [phone]
[2023-07-16 01:37] LABS: Glucose, Whole Blood 458 mg/dL (60-115)
[2023-07-16] MEDS: methylPREDNISolone Sod Succ 125 MG/2 ML VIAL IVPUSH (02:08)
[2023-07-16] MEDS: Azithromycin 500 MG in 0.9 % Sodium Chloride 250 ML 125 MG IV ×2 (02:08→23:54)
[2023-07-16] MEDS: Acetaminophen 325 MG TABLET 975 MG PO ×3 (02:56→20:57)
[2023-07-16] MEDS: Insulin Lispro 100 UNIT/ML 3 ML VIAL SUBCUT ×5 (02:57→20:58)
--- NOTE | 2023-07-16 04:18 | P.HPHOSP_ITS ---
History of Present Illness Date of Service: 07/16/23 Attending physician on admission: Emily Olivia Chief Complaint: Shortness of breath Mora Manrique is a 73 years old woman with past medical history significant for COPD -not home oxygen, type 2 diabetes mellitus, essential hypertension and hyperlipidemia presents to the emergency department complaining of 2 weeks' history of worsening shortness of breath, wheezing, dry cough and chest tightness. She denied any headache, sore throat, fever or chills. She denied any acute gastrointestinal or genitourinary symptoms. She denied tobacco smoking, alcohol abuse illicit drug use. In the ED, she was found to have light tachycardia and tachypnea. She was placed on supplemental oxygen. Her oxygen saturation is adequate. Blood workup showed no leukocytosis. Blood glucose is elevated. There are no significant electrolyte imbalances. Viral testing for COVID-19, RSV and influenza is negative. ED tx: Magnesium sulfate 2 g IV, DuoNeb/albuterol X2 Review of Systems 2 Review of Systems: All 12 systems were reviewed and normal except as noted in HPI. 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 Seropositive rheumatoid arthritis Asthma History of right breast cancer Family History Father Throat cancer Mother Asthma Osteoarthritis Sister Breast cancer Surgical History Hx of hand surgery H/O cystoscopy Hx of thumb surgery H/O colonoscopy H/O local excision of skin lesion History of bilateral carpal tunnel release S/P lumpectomy, right breast History of esophagogastroduodenoscopy (EGD) Social History Household Members: None Housing: Apartment Do you presently have visiting nurse or other home services: No Unable to assess alcohol history related to: Unknown Alcohol intake: never Patient Tobacco Use Status: Former Tobacco user Quit Date: 2014 Tobacco use type: Cigarette Smoked in Last 30 Days: No e-Cigarette/Vaping Use: Never Used Use of substances other than those prescribed or required for medical reasons: No Advance Directives: No Advance Directives Information Provided: No service: No Current occupational status: retired 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 Meds Allergies Allergy/AdvReac Type Severity Reaction Status Date / Time latex [LATEX] Allergy Intermediate BLISTERS Verified 07/15/23 18:52 abatacept [From Orencia] Allergy Unknown Itching Verified 07/15/23 18:52 adalimumab [From Humira] Allergy dizziness Verified 07/15/23 18:52 aspirin AdvReac Intermediate abdominal Verified 07/15/23 18:52 pain Active Medications: Current Medications Acetaminophen (Acetaminophen 325 Mg Tablet) 975 mg PO Q6H PRN PRN Reason: Pain, Mild (Pain Scale 1-3) Last Admin: 07/16/23 02:56 Dose: 975 mg Albuterol Sulfate (Albuterol Sulfate 90 Mcg 8 Gm Inhaler) 4 puff INHALE RQ4H WHILE AWAKE [facility] Stop: 07/16/23 12:01 Atorvastatin Calcium (Atorvastatin Calcium 10 Mg Tablet) 10 mg PO DAILY [facility] Dextrose (Dextrose 50 % 25 Gm/50 Ml Syringe) 25 gm IVPUSH Q15M PRN; Protocol PRN Reason: per Hypoglycemia Standing Ord. Empagliflozin (Empagliflozin 10 Mg Tablet) 10 mg PO DAILY [facility] Escitalopram Oxalate (Escitalopram Oxalate 10 Mg Tablet) 10 mg PO DAILY [facility] Gabapentin (Gabapentin 300 Mg Capsule) 300 mg PO BID [facility] Glucose (Glucose Gel 15 Gm Gel..Gram.) 15 gm PO Q15M PRN; Protocol PRN Reason: per Hypoglycemia Standing Ord. Heparin Sodium (Porcine) (Heparin Sodium,Porcine 5,000 Unit/Ml Vial) 5,000 unit SUBCUT Q8H [facility] Hydrochlorothiazide (Hydrochlorothiazide 12.5 Mg Tablet) 12.5 mg PO DAILY [facility] Azithromycin 500 mg/ Sodium (Chloride) 250 mls @ 125 mls/hr IV Q24H [facility] Last Admin: 07/16/23 02:08 Dose: 125 mls/hr Insulin Human Lispro (Insulin Lispro 100 Unit/Ml 3 Ml Vial) 0 unit SUBCUT QIDACHS [facility]; Protocol Last Admin: 07/16/23 02:57 Dose: 10 unit Lisinopril (Lisinopril 20 Mg Tablet) 20 mg PO DAILY [facility] Methylprednisolone Sodium Succinate (Methylprednisolone Sod Succ 40 Mg/Ml Vial) 40 mg IVPUSH Q12H [facility] Non-Formulary Medication (Dulaglutide [Trulicity]) 0.75 mg SUBCUT Q7D [facility] Sodium Chloride (0.9 % Sodium Chloride Flush 3 Ml Syringe) 3 ml IVFLUSH QSHIFT [facility] Home Medications Medication Instructions Recorded Confirmed Last Taken Type acetaminophen 650 mg 650 mg PO Q8H PRN Pain 02/25/20 04/30/23 03/29/23 History tablet,extended release citalopram 40 mg tablet 20 mg PO DAILY 02/25/20 07/16/23 03/29/23 History loratadine 10 mg tablet (Allergy 10 mg PO DAILY 02/25/20 04/30/23 03/29/23 History Relief (loratadine)) montelukast 10 mg tablet 10 mg PO BEDTIME 02/25/20 04/30/23 03/29/23 History simvastatin 20 mg tablet 20 mg PO DAILY 02/25/20 04/30/23 03/29/23 History blood sugar diagnostic (FreeStyle #10 ea 04/04/21 01/05/23 Unknown History Lite Strips) dapagliflozin propanediol 5 mg 5 mg PO DAILY 03/19/22 04/30/23 03/29/23 History tablet ferrous gluconate 324 mg (37.5 mg 324 mg PO Q48H 10/09/22 04/30/23 03/29/23 History iron) tablet albuterol sulfate 2.5 mg/3 mL 2.5 mg inhalation Q4H PRN wheezing 01/05/23 07/16/23 Unknown History (0.083 %) solution for nebulization azelastine 137 mcg (0.1 %) nasal 1 spray intranasal BID PRN 01/05/23 04/30/23 Unknown History spray aerosol Congestion dulaglutide 0.75 mg/0.5 mL 0.75 mg subcut TH 01/05/23 04/30/23 03/26/23 History subcutaneous pen injector (Trulicity) lisinopril 20 1 tab PO QAM 01/05/23 04/30/23 03/29/23 History mg-hydrochlorothiazide 12.5 mg tablet fluticasone propionate 50 1 inh inhalation BID 03/30/23 04/30/23 03/29/23 History mcg/actuation blister powder for inhalation (Flovent Diskus) ramelteon 8 mg tablet 8 mg PO BEDTIME 03/30/23 04/30/23 03/29/23 History albuterol sulfate 90 mcg/actuation inhalation NEEDED 05/13/23 Unknown History aerosol inhaler melatonin 10 mg capsule 10 mg PO BEDTIME PRN insomnia 05/13/23 Unknown History colchicine 0.6 mg tablet 0.6 mg PO NEEDED PRN Pain 07/16/23 07/16/23 Unknown History dapagliflozin propanediol 5 mg 5 mg PO DAILY 07/16/23 07/16/23 Unknown History tablet (Farxiga) dulaglutide 0.75 mg/0.5 mL 0.75 mg subcut QWEEK 07/16/23 07/16/23 1 Week Ago History subcutaneous pen injector ~07/09/23 (Trulicity) ferrous gluconate 324 mg (37.5 mg mg PO 07/16/23 Unknown History iron) tablet gabapentin 300 mg capsule 300 mg PO TID 07/16/23 07/16/23 Unknown History lisinopril 20 1 tab PO DAILY 07/16/23 07/16/23 Unknown History mg-hydrochlorothiazide 12.5 mg tablet simvastatin 20 mg tablet 20 mg PO QPM 07/16/23 07/16/23 Unknown History Physical Exam 2 Vital Signs and Narrative: Vital Signs: Last Vital Signs Temp 98.1 F 07/16/23 02:45 Pulse 114 H 07/16/23 02:45 Resp 16 07/16/23 02:45 BP 120/58 L 07/16/23 02:45 Pulse Ox 93 07/16/23 02:45 O2 Del Method Nasal Cannula 07/16/23 02:45 O2 Flow Rate 2 07/16/23 02:45 BMI result Body Mass Index 32.9 Constitutional - Awake and Alert, No apparent distress. Cooperative. Less than. HEENT - atraumatic, normocephalic. Dry oral mucosa Heart -tachycardia. Normal rate. Lungs - Normal lung expansion, Normal respiratory effort, No respiratory distress, tachypnea. End expiratory wheezing. No crackles Abdomen - NT / ND; +BS; No rebound or guarding Extremities - no calf tenderness bilaterally, no swelling Musculoskeletal - Normal inspection, normal ROM Skin - Warm/Dry Neurological - Alert & oriented x3. No focal weakness grossly noted. Normal speech. Normal behavior. Psychological - Appropriate affect Results Labs 07/15/23 20:24 07/15/23 20:24 Labs: Laboratory Results - last 24 hr 07/15/23 07/15/23 07/16/23 20:24 21:11 01:32 MCV 86.5 MCH 29.0 MCHC 33.6 RDW 13.9 Plt Count 296 MPV 9.5 Immature Gran % (Auto) 0.4 Neut % (Auto) 88.4 H Lymph % (Auto) 9.3 L [place] % (Auto) 1.1 L Eos % (Auto) 0.4 Baso % (Auto) 0.4 Lymph # (Auto) 1.0 L [place] # (Auto) 0.1 Eos # (Auto) 0.0 Baso # (Auto) 0.0 Abs Immat Gran (auto) 0.04 H Absolute Neuts (auto) 9.5 H Absolute Nucleated RBC 0.000 Nucleated RBC % (auto) 0.0 PT 11.9 INR 1.0 VBG pH 7.38 VBG pCO2 31 VBG pO2 98 VBG HCO3 18 L VBG O2 Saturation 98.0 VBG Base Excess -5.0 Anion Gap 15 Estim Creat Clear Calc 41.3 Estimated GFR 38 POC Glucose 458 H* Random Glucose 170 H Calcium 10.1 D Magnesium 2.1 Total Bilirubin 0.3 Direct Bilirubin 0.1 AST 20 ALT 18 Alkaline Phosphatase 108 Troponin I High Sens < 2.7 B-Natriuretic Peptide 21 Total Protein 8.0 Albumin 4.6 Influenza Type A (PCR) NEGATIVE Influenza Type B (PCR) NEGATIVE RSV RNA Qual (PCR) NEGATIVE SARS-CoV-2 RNA (RT-PCR) NEGATIVE Imaging Radiologist's Impressions: Impressions Chest X-Ray 07/15/23 19:09 IMPRESSION: 1. Increased radiopacity in the left lung base may reflect round atelectasis though evolving infectious/inflammatory etiology not excluded. 2. Chronic interstitial lung markings. Chest CT 07/15/23 20:40 IMPRESSION: Lingular atelectasis or small infiltrate. Subsegmental atelectasis in both lower lobes. Bronchial wall thickening and soft tissue opacification in both lower lobes. Fleischner guidelines were followed. Assessment and Plan (1) Acute exacerbation of chronic obstructive pulmonary disease (COPD): Status: Acute (2) HTN (hypertension), benign: Status: Acute (3) Uncontrolled type 2 diabetes mellitus with hyperglycemia: Status: Acute Plan Mora Manrique is a 73 years old woman admitted with: * Acute exacerbation of chronic obstructive pulmonary disease. Admit to hospitalist service. Supplemental oxygen to keep oxygen saturation above 90%. Continue bronchodilator therapy. Start IV steroids. Start treatment with azithromycin 500 mg IV daily (pt has symtoms for 2 weeks). * Type 2 diabetes mellitus, uncontrolled. Continue Trulicity, Jardiance and insulin sliding scale. * Essential hypertension. Continue lisinopril/hydrochlorothiazide. * Hyperlipidemia. Continue statin. * Arthritis. Continue gabapentin. * Depression. Continue escitalopram. DVT prophylaxis: Heparin subcut Code status: Full Patient will need hospitalization for at least 2 midnights for acute exacerbation of COPD treatment with IV antibiotics, supplemental oxygen, bronchodilator therapy and IV steroids. Quality Stroke Does the patient have a stroke diagnosis?: No VTE Prior VTE?: No VTE Risk Level:: Medical - moderate - high VTE Device Contraindication: Treatment Not Indicated VTE Drug Contraindication: N/A - Med Ordered
--- NOTE | 2023-07-16 04:35 | PC.NURSE ---
PT ambulated to restroom, began to cough and have shortness of breath. Placed back on O2, 2L. O2 sat 95% @ this time.
[2023-07-16] MEDS: Albuterol Sulfate 90 MCG 8 GM INHALER 4 PUFF INHALE ×2 (04:45→07:34)
[2023-07-16 04:47] LABS: Glucose, Whole Blood 353 mg/dL (60-115)
[2023-07-16] MEDS: Insulin Regular, Human 100 UNIT/ML 3 ML VIAL IVPUSH (05:35)
--- NOTE | 2023-07-16 05:37 | PC.NURSE ---
poc 346 pt medicated per mar.
[2023-07-16 05:39] LABS: Glucose, Whole Blood 346 mg/dL (60-115)
[2023-07-16 05:57] LABS: Glucose, Whole Blood 292 mg/dL (60-115)
[2023-07-16 06:17] LABS: Basophils Percent Auto 0.1 % (0-2); Hematocrit 37.1 % (37.0-47.0); Hemoglobin 12.2 g/dl (12.0-16.0); Imm Gran Abs Auto 0.07 X10*3/uL (0.00-0.03); Imm Gran Pct Auto 0.7 % (0.0-0.4); Lymphocytes Absolute Auto 0.9 X10*3/uL (1.2-4.9); Lymphocytes Percent Auto 8.1 % (20-40); MANUAL DIFF FLAG SCAN; Mean Corpuscular HGB Conc 32.9 g/dl (31.0-35.0); Mean Corpuscular Volume 88.3 fL (80.0-98.0); Mean Platelet Volume 9.4 fL (9.4-12.3); Monocytes Absolute Auto 0.1 X10*3/uL (0.1-1.2); Monocytes Percent Auto 0.5 % (2-11); Neutrophils Absolute Auto 9.8 x10*3/uL (2.0-8.3); Neutrophils Percent Auto 90.6 % (45-73); Platelet Count 306 X10*3/uL (160-400); Red Cell Distribution Width 14.1 % (11.0-16.0); SCAN SMEAR FLAG 1; White Blood Count 10.8 X10*3/uL (4.8-10.8)
[2023-07-16 06:30] LABS: Anion Gap 20 (12-20); Blood Urea Nitrogen 25 mg/dL (9-16); Carbon Dioxide 15 mmol/L (22-29); Chloride 108 mmol/L (96-108); Creatinine Clr Calc Pharmacy 36.8; Estimated Glomerular Filt Rate 33; Glucose Random 334 mg/dL (60-115); Potassium 4.3 mmol/L (3.3-5.1); Sodium 139 mmol/L (135-145)
[2023-07-16 07:12] LABS: Glucose, Whole Blood 253 mg/dL (60-115)
[2023-07-16 07:26] LABS: SLIDE REVIEW VERIFIED
[2023-07-16 08:48] LABS: Estimated Average Glucose 148 mg/dL; Hemoglobin A1c % 6.8 % (<6.0)
[2023-07-16] MEDS: methylPREDNISolone Sod Succ 40 MG/ML VIAL IVPUSH (08:52)
[2023-07-16] MEDS: Heparin Sodium,Porcine 5,000 UNIT/ML VIAL 5000 UNIT SUBCUT ×3 (08:52→23:54)
[2023-07-16] MEDS: amLODIPine Besylate 5 MG TABLET PO (08:52)
[2023-07-16] MEDS: 0.9 % Sodium Chloride Flush 3 ML SYRINGE IVFLUSH ×3 (08:52→23:54)
[2023-07-16] MEDS: Escitalopram Oxalate 10 MG TABLET PO (08:52)
[2023-07-16] MEDS: Gabapentin 300 MG CAPSULE PO ×2 (08:52→20:57)
[2023-07-16] MEDS: Atorvastatin Calcium 10 MG TABLET PO (08:52)
[2023-07-16] MEDS: Empagliflozin 10 MG TABLET PO (08:58)
--- NOTE | 2023-07-16 09:51 | MHC.CM.PN ---
IMM DELIVERED. PATIENT IS FROM HOME ALONE. FUNCTIONALLY INDEPENDENT. NO SERVICES OR DME. PCP: SATYA VEGA AT [facility] HCP: PATIENT COMPLETED HCP NAMING AGENTS 1) DTR CLARISSE [phone], 2) SON QUIRINO [phone] DP: GOAL IS HOME SELF CARE, DOES NOT ANTICIPATE THE NEED FOR ANY SERVICES. SON TO TRANSPORT. CM WILL CONTINUE TO FOLLOW.
[2023-07-16 11:44] LABS: Glucose, Whole Blood 275 mg/dL (60-115)
[2023-07-16] MEDS: Albuterol/Iprat 2.5/0.5MG 3 ML AMPUL.NEB INHALE ×3 (11:53→20:21)
--- NOTE | 2023-07-16 12:41 | PHA.MEDREC ---
Pharmacy Consult ? Medication Reconciliation Pharmacy has completed the medication reconciliation. pharmacy has reviewed and made corrections to med rec done overnight. spoke to pt and confirmed names and dosing of home medications.
--- NOTE | 2023-07-16 13:15 | PM.EVENT ---
Event Note Date of Service: 07/16/23 Event Note: Patient seen and examined by hospitalist team this morning. Seen and examined again. Physical exam unchanged from H&P. Assessment plan coordinated in H&P note patient admitted for copd,possible mary grace vs ckd3 ,dm with hyperglycemia sec to steriods continue nebs ,adjusted steriods , moniter renal function/electrolytes closely. fs with adjusted coverage . Time Spent With Patient Time: Total time managing care of this patient today ____ minutes.
[2023-07-16 16:38] LABS: Glucose, Whole Blood 246 mg/dL (60-115)
[2023-07-16 20:25] LABS: Glucose, Whole Blood 206 mg/dL (60-115)
[2023-07-16] MEDS: Melatonin 3 MG TABLET 6 MG PO (21:57)
[2023-07-17] VITALS (8 sets, daily range): BP systolic 105–126; BP diastolic 53–70; PULSE 70–91; RESP 14–20; TEMP 36–36.5; O2SAT 91–96
[2023-07-17 07:22] LABS: Glucose, Whole Blood 151 mg/dL (60-115)
[2023-07-17] MEDS: Albuterol/Iprat 2.5/0.5MG 3 ML AMPUL.NEB INHALE ×4 (07:47→20:50)
[2023-07-17] MEDS: Insulin Lispro 100 UNIT/ML 3 ML VIAL SUBCUT ×4 (08:18→21:42)
[2023-07-17] MEDS: Gabapentin 300 MG CAPSULE PO ×2 (08:19→21:42)
[2023-07-17] MEDS: Ferrous Sulfate 324 MG TABLET.DR PO (08:19)
[2023-07-17] MEDS: Empagliflozin 10 MG TABLET PO (08:19)
[2023-07-17] MEDS: Escitalopram Oxalate 10 MG TABLET PO (08:19)
[2023-07-17] MEDS: amLODIPine Besylate 5 MG TABLET PO (08:19)
[2023-07-17] MEDS: Cholecalciferol (Vitamin D3) 25 MCG TABLET PO (08:19)
[2023-07-17] MEDS: Atorvastatin Calcium 10 MG TABLET PO (08:19)
[2023-07-17] MEDS: Loratadine 10 MG TABLET PO (08:19)
[2023-07-17] MEDS: Heparin Sodium,Porcine 5,000 UNIT/ML VIAL 5000 UNIT SUBCUT ×2 (08:19→17:08)
[2023-07-17] MEDS: methylPREDNISolone Sod Succ 40 MG/ML VIAL IVPUSH (08:19)
[2023-07-17] MEDS: 0.9 % Sodium Chloride Flush 3 ML SYRINGE IVFLUSH ×3 (08:20→21:45)
[2023-07-17 09:33] LABS: Anion Gap 19 (12-20); Blood Urea Nitrogen 36 mg/dL (9-16); Carbon Dioxide 19 mmol/L (22-29); Chloride 108 mmol/L (96-108); Creatinine Clr Calc Pharmacy 42.6; Estimated Glomerular Filt Rate 39; Glucose Random 135 mg/dL (60-115); Potassium 4.7 mmol/L (3.3-5.1); Sodium 141 mmol/L (135-145)
[2023-07-17 11:40] LABS: Glucose, Whole Blood 193 mg/dL (60-115)
[2023-07-17] MEDS: guaiFENesin 200 MG/10 ML 10 ML LIQUID PO ×2 (12:20→21:42)
--- NOTE | 2023-07-17 15:07 | HO.PM.IMPN ---
Subjective Subjective Date of Service: 07/17/23 Interval History: copd, ckd3? Review of Systems sob seems similar to yesterday , able to talk somewhat better. also gets sob with excersion Physical Exam Vital Signs: Vital Signs: Last Vital Signs Temp 96.8 F 07/17/23 07:54 Pulse 70 07/17/23 11:29 Resp 14 07/17/23 11:29 BP 105/53 L 07/17/23 07:54 Pulse Ox 93 07/17/23 07:54 O2 Del Method Room Air 07/17/23 07:54 O2 Flow Rate 2 07/17/23 03:45 BMI result Body Mass Index 33.5 Appearance: Alert.? Oriented X3. cvs: rrr, [id number] , no murmur res: air entry diminshed ,b/l exp wheezing abd: no rebound or guarding ,nt, bs present. ext pulses present , no cyanosis . neuro: axo3 , nonfocal. Objective Data Active Medications Acetaminophen (Acetaminophen 325 Mg Tablet) 975 mg PO Q6H PRN PRN Reason: Pain, Mild (Pain Scale 1-3) Last Admin: 07/16/23 20:57 Dose: 975 mg Documented By: ARUN Albuterol/Ipratropium (Albuterol/Iprat 2.5/0.5mg 3 Ml Ampul.Neb) 3 ml INHALE RQ4H WHILE AWAKE [facility] Last Admin: 07/17/23 11:29 Dose: 3 ml Documented By: VALENTINO Albuterol/Ipratropium (Albuterol/Iprat 2.5/0.5mg 3 Ml Ampul.Neb) 3 ml INHALE Q3H PRN PRN Reason: sob Amlodipine Besylate (Amlodipine Besylate 5 Mg Tablet) 5 mg PO DAILY [facility]; Protocol Last Admin: 07/17/23 08:19 Dose: 5 mg Documented By: LAYTON Atorvastatin Calcium (Atorvastatin Calcium 10 Mg Tablet) 10 mg PO DAILY [facility] Last Admin: 07/17/23 08:19 Dose: 10 mg Documented By: LAYTON Azelastine HCl (Azelastine Hcl Nasal 137 Mcg/[place] 30 Ml) 1 spray NOSTRIL-B BID PRN PRN Reason: Congestion Dextrose (Dextrose 50 % 25 Gm/50 Ml Syringe) 25 gm IVPUSH Q15M PRN; Protocol PRN Reason: per Hypoglycemia Standing Ord. Empagliflozin (Empagliflozin 10 Mg Tablet) 10 mg PO DAILY [facility] Last Admin: 07/17/23 08:19 Dose: 10 mg Documented By: LAYTON Escitalopram Oxalate (Escitalopram Oxalate 10 Mg Tablet) 10 mg PO DAILY [facility] Last Admin: 07/17/23 08:19 Dose: 10 mg Documented By: LAYTON Ferrous Sulfate (Ferrous Sulfate 324 Mg Tablet.Dr) 324 mg PO Q48H [facility] Last Admin: 07/17/23 08:19 Dose: 324 mg Documented By: LAYTON Gabapentin (Gabapentin 300 Mg Capsule) 300 mg PO BID [facility] Last Admin: 07/17/23 08:19 Dose: 300 mg Documented By: LAYTON Glucose (Glucose Gel 15 Gm Gel..Gram.) 15 gm PO Q15M PRN; Protocol PRN Reason: per Hypoglycemia Standing Ord. Guaifenesin (Guaifenesin 200 Mg/10 Ml 10 Ml Liquid) 10 ml PO Q4H PRN PRN Reason: Cough Last Admin: 07/17/23 12:20 Dose: 10 ml Documented By: LAYTON Heparin Sodium (Porcine) (Heparin Sodium,Porcine 5,000 Unit/Ml Vial) 5,000 unit SUBCUT Q8H [facility] Last Admin: 07/17/23 08:19 Dose: 5,000 unit Documented By: LAYTON Azithromycin 500 mg/ Sodium (Chloride) 250 mls @ 125 mls/hr IV Q24H [facility] Last Infusion: 07/17/23 01:54 Dose: Infused Documented By: ARUN Insulin Human Lispro (Insulin Lispro 100 Unit/Ml 3 Ml Vial) 0 unit SUBCUT QIDACHS [facility]; Protocol Last Admin: 07/17/23 12:20 Dose: 2 unit Documented By: LAYTON Comments: Loratadine (Loratadine 10 Mg Tablet) 10 mg PO DAILY [facility] Last Admin: 07/17/23 08:19 Dose: 10 mg Documented By: LAYTON Melatonin (Melatonin 3 Mg Tablet) 6 mg PO BEDTIME PRN PRN Reason: Insomnia Last Admin: 07/16/23 21:57 Dose: 6 mg Documented By: ARUN Melatonin (Melatonin 3 Mg Tablet) 9 mg PO BEDTIME PRN PRN Reason: insomnia Methylprednisolone Sodium Succinate (Methylprednisolone Sod Succ 40 Mg/Ml Vial) 40 mg IVPUSH Q24H [facility] Last Admin: 07/17/23 08:19 Dose: 40 mg Documented By: LAYTON Montelukast Sodium (Montelukast Sodium 10 Mg Tablet) 10 mg PO BEDTIME [facility] Non-Formulary Medication (Dulaglutide [Trulicity]) 0.75 mg SUBCUT Q7D [facility] Non-Formulary Medication (Febuxostat) 80 mg PO DAILY [facility] Non-Formulary Medication (Tetrahydrozoline-Peg) 1 drop EYE-BOTH TID PRN PRN Reason: Dry Eye(S) Omeprazole (Omeprazole 40 Mg Capsule.Dr) 40 mg PO DAILY@0630 [facility] Sodium Chloride (0.9 % Sodium Chloride Flush 3 Ml Syringe) 3 ml IVFLUSH QSHIFT [facility] Last Admin: 07/17/23 08:20 Dose: 3 ml Documented By: LAYTON Vitamin D (Cholecalciferol (Vitamin D3) 25 Mcg Tablet) 25 mcg PO DAILY [facility] Last Admin: 07/17/23 08:19 Dose: 25 mcg Documented By: LAYTON Labs 07/16/23 05:53 07/17/23 08:02 Labs: Laboratory Results - last 24 hr 07/16/23 07/16/23 07/17/23 16:33 20:09 07:19 Hold Purple Top Anion Gap Estim Creat Clear Calc Estimated GFR POC Glucose 246 H 206 H 151 H Random Glucose Calcium 07/17/23 07/17/23 08:02 11:23 Hold Purple Top SEE NOTE Anion Gap 19 Estim Creat Clear Calc 42.6 Estimated GFR 39 POC Glucose 193 H Random Glucose 135 H Calcium 10.0 Assessment and Plan (1) Acute exacerbation of chronic obstructive pulmonary disease (COPD): Status: Acute Plan 73 years old woman admitted with: Acute exacerbation of chronic obstructive pulmonary disease. so far minimum improvement ,sob continue nebs,steriods ,azithromycin, Supplemental oxygen to keep oxygen saturation above 90%. Type 2 diabetes mellitus, uncontrolled. Continue Trulicity, Jardiance and insulin sliding scale. Essential hypertension. Continue lisinopril/hydrochlorothiazide. Hyperlipidemia. Continue statin. Arthritis. Continue gabapentin. Depression. Continue escitalopram. DVT prophylaxis: Heparin s/c. ongoing hospitalization need for 48-72 hrs due to minimum improvement in symptoms with current treatment -acute exacerbation of COPD treatment with IV antibiotics, supplemental oxygen, bronchodilator therapy and IV steroids. Quality Stroke Does the patient have a stroke diagnosis?: No VTE Prior VTE?: No VTE Risk Level:: Medical - moderate - high VTE Device Contraindication: Treatment Not Indicated VTE Drug Contraindication: N/A - Med Ordered
[2023-07-17 16:25] LABS: Glucose, Whole Blood 256 mg/dL (60-115)
[2023-07-17 21:19] LABS: Glucose, Whole Blood 228 mg/dL (60-115)
[2023-07-17] MEDS: Montelukast Sodium 10 MG TABLET PO (21:42)
[2023-07-18] MEDS: Azithromycin 500 MG in 0.9 % Sodium Chloride 250 ML 125 MG IV (02:36)
[2023-07-18] MEDS: Heparin Sodium,Porcine 5,000 UNIT/ML VIAL 5000 UNIT SUBCUT ×2 (02:36→08:38)
[2023-07-18 03:54] VITALS: BP 123/60; PULSE 86; RESP 18; TEMP 36.1; O2SAT 93
[2023-07-18] MEDS: Omeprazole 40 MG CAPSULE.DR PO (06:48)
[2023-07-18 07:09] VITALS: BP 129/66; PULSE 85; RESP 20; TEMP 36; O2SAT 92
[2023-07-18 07:26] LABS: Glucose, Whole Blood 125 mg/dL (60-115)
[2023-07-18 07:47] VITALS: PULSE 85; RESP 20; O2SAT 94
[2023-07-18] MEDS: Albuterol/Iprat 2.5/0.5MG 3 ML AMPUL.NEB INHALE ×2 (07:47→11:09)
[2023-07-18] MEDS: methylPREDNISolone Sod Succ 40 MG/ML VIAL IVPUSH (08:38)
[2023-07-18] MEDS: 0.9 % Sodium Chloride Flush 3 ML SYRINGE IVFLUSH (08:38)
[2023-07-18] MEDS: amLODIPine Besylate 5 MG TABLET PO (08:39)
[2023-07-18] MEDS: Atorvastatin Calcium 10 MG TABLET PO (08:39)
[2023-07-18] MEDS: Gabapentin 300 MG CAPSULE PO (08:39)
[2023-07-18] MEDS: Loratadine 10 MG TABLET PO (08:39)
[2023-07-18] MEDS: Escitalopram Oxalate 10 MG TABLET PO (08:39)
[2023-07-18] MEDS: Cholecalciferol (Vitamin D3) 25 MCG TABLET PO (08:39)
[2023-07-18] MEDS: Empagliflozin 10 MG TABLET PO (08:44)
[2023-07-18] MEDS: guaiFENesin 200 MG/10 ML 10 ML LIQUID PO (10:23)
[2023-07-18 11:06] LABS: Glucose, Whole Blood 268 mg/dL (60-115)
[2023-07-18 11:09] VITALS: PULSE 76; RESP 18; O2SAT 94
--- NOTE | 2023-07-18 11:28 | MHC.CM.PN ---
PATIENT IS DC HOME - SELF CARE. PER REVIEW OF NOTES, SON TO DIRECTOR [employer]ERSITY AWARE OF PLAN. IMM 07/16 PREVIOUSLY COMPLETED
[2023-07-18] MEDS: Insulin Lispro 100 UNIT/ML 3 ML VIAL SUBCUT (12:14)
[2023-07-18 13:08] VITALS: PULSE 101; PULSE 92; PULSE 96; O2SAT 90; O2SAT 92; O2SAT 93
--- NOTE | 2023-07-18 14:08 | PM.DS ---
DS: Providers Provider Date of Service: 07/18/23 Date of admission: 07/16/23 00:53 Date of discharge: 07/18/23 Primary care physician: SATYA Keating Attending physician on discharge: Alan Joseph Discharging clinician: Alan Joseph DS: Diagnosis Discharge Diagnosis (1) Acute exacerbation of chronic obstructive pulmonary disease (COPD): Status: Acute DS: Summary Hospital Course Hospital Course: hospital course: Patient was admitted to the hospital for acute hypoxemic respiratory failure sec to acute COPD exacerbation, also has probably chronic respiratory failure on home oxygen 2-3 L: Patient was started on nebs, steroids, antibiotics seems to be improved significantly-patient will be going home with p.o. steroids and azithromycin. patient says she does not use oxygen currently -patient home oxygen evaluation done-did not qualify for home oxygen . Mild SUNNI on CKD possible stage III: Improved with holding lisinopril/hydrochlorothiazide, SUNNI seems to be improving creatinine is 1.35, will start back hydrochlorothiazide, monitor renal function and electrolytes outpatient with PCP in 1 week and if needed consider adding lisinopril back. Also consider outpatient Nephrology evaluation if needed. plan: complete p.o. prednisone 40 mg daily for 3 days and azithromycin 250 mg po daily for 3 days. Above management discussed with the patient and her family in detail length they both understand and in agreement with the above plan, time spent 50 minute. Time Attestation Discharge coordination time: Greater than 30 minutes Quality: Safe Use of Opioids Does Pt have an Active Cancer Diagnosis on the Problem List?: No Quality: Stroke Does the patient have a stroke diagnosis?: No Physical Exam Vital Signs: Vital Signs: Last Vital Signs Temp 96.8 F 07/18/23 07:09 Pulse 76 07/18/23 11:09 Resp 18 07/18/23 11:09 BP 129/66 07/18/23 07:09 Pulse Ox 92 07/18/23 07:09 O2 Del Method Nasal Cannula 07/18/23 07:09 O2 Flow Rate 2 07/18/23 07:09 BMI result Body Mass Index 33.5 Appearance: Alert.? Oriented X3. cvs: rrr, [id number] , no murmur res: air entry imrpoved, no wheezing or rales. abd: no rebound or guarding ,nt, bs present. ext pulses present , no cyanosis . neuro: axo3 , nonfocal. DS: Data Data Completed and Pending Labs on day of discharge: Laboratory Results - last 24 hr 07/17/23 07/17/23 07/18/23 16:21 21:15 06:59 POC Glucose 256 H 228 H 125 H 07/18/23 11:03 POC Glucose 268 H Imaging Chest x-ray: Radiologist's impression: ITS Impressions Chest X-Ray 07/15/23 19:09 IMPRESSION: 1. Increased radiopacity in the left lung base may reflect round atelectasis though evolving infectious/inflammatory etiology not excluded. 2. Chronic interstitial lung markings. Chest CT 07/15/23 20:40 IMPRESSION: Lingular atelectasis or small infiltrate. Subsegmental atelectasis in both lower lobes. Bronchial wall thickening and soft tissue opacification in both lower lobes. Fleischner guidelines were followed. Discharge Plan Discharge Anticipated Discharge Date/Time: 07/18/23 11:14 Patient Disposition: Home, Self-Care Discharge Diagnosis: acute hypoxemic respiratory failure ,acute copd execerebation Referrals: Adenike Souza, ERGONOMIC SPECIALIST [Primary Care Provider] - 1 Week Discharge Medications: New hydrochlorothiazide 12.5 mg tablet 12.5 mg PO DAILY Qty: 30 0RF prednisone 20 mg tablet 40 mg PO DAILY Qty: 6 0RF azithromycin 250 mg tablet 250 mg PO DAILY 3 Days Qty: 3 0RF Rx Instructions: start on day 2 of therapy Continued cholecalciferol (vitamin D3) 25 mcg (1,000 unit) capsule 25 mcg PO DAILY Qty: 90 1RF febuxostat 80 mg tablet 80 mg PO DAILY Qty: 90 3RF gabapentin 300 mg capsule 300 mg PO TID simvastatin 20 mg tablet 20 mg PO BEDTIME dapagliflozin propanediol [Farxiga] 5 mg tablet 5 mg PO DAILY colchicine 0.6 mg tablet 0.6 mg PO NEEDED PRN (Reason: Pain) Rx Instructions: prn gout Trulicity 0.75 mg/0.5 mL pen injector 0.75 mg subcut TH Rx Instructions: ferrous gluconate 324 mg (37.5 mg iron) tablet 324 mg PO Q48H dexlansoprazole 60 mg capsule,biphase delayed releas 60 mg PO DAILY@0630 tetrahydrozoline-peg 0.05-1 % Drops 1 drp OPHTHALMIC (EYE) TID PRN (Reason: Dry Eye(S)) citalopram 40 mg tablet 40 mg PO DAILY loratadine [Allergy Relief (loratadine)] 10 mg tablet 10 mg PO DAILY montelukast 10 mg tablet 10 mg PO BEDTIME (DME) FreeStyle Lite Strips Strip See Rx Instructions Not Applicable TID Qty: 10 Rx Instructions: As directed albuterol sulfate 2.5 mg /3 mL (0.083 %) solution for nebulization 2.5 mg inhalation Q4H PRN (Reason: wheezing) azelastine 137 mcg (0.1 %) aerosol,spray 1 spray intranasal BID PRN (Reason: Congestion) albuterol sulfate 90 mcg/actuation HFA aerosol inhaler 2 puff inhalation Q4H PRN (Reason: Shortness Of Breath Or Wheezing) melatonin 10 mg capsule 10 mg PO BEDTIME PRN (Reason: insomnia) Discontinued lisinopril-hydrochlorothiazide 20-12.5 mg tablet 1 tab PO DAILY Discharge Orders: Discharge Order (Routine); Ordered 07/18/23 Ordered By: Alan Joseph Diet: Advance to usual diet Activity on Discharge: As tolerated Stand Alone Forms: Patient Portal Discharge page Other Ambulatory Orders: Basic Metabolic Panel (Routine) Timeframe: 1 Week Facility: [facility] - Location: Laboratory Ordered By: Alan Joseph Care Plan Goals: Patient was admitted to the hospital for acute hypoxemic respiratory failure sec to acute COPD exacerbation, also has probably chronic respiratory failure on home oxygen 2-3 L: Patient was started on nebs, steroids, antibiotics seems to be improved significantly-patient will be going home with p.o. steroids and azithromycin. patient says she does not use oxygen currently -patient home oxygen evaluation done-did not qualify for home oxygen . Mild SUNNI on CKD possible stage III: Improved with holding lisinopril/hydrochlorothiazide, SUNNI seems to be improving creatinine is 1.35, will start back hydrochlorothiazide, monitor renal function and electrolytes outpatient with PCP in 1 week and if needed consider adding lisinopril back. Also consider outpatient Nephrology evaluation if needed. Health Concerns: complete p.o. prednisone 40 mg daily for 3 days and azithromycin 250 mg po daily for 3 days. Plan of Treatment: As above. Assessment: As above.
== END 2023-07-18 15:35 | disposition home or self-care (01) | DRG 190 ==
LOC: HO.ED 07-16 01:31 → HO.EDOVER 07-16 02:25 → HO.S3 07-16 07:28
PROVIDERS: Physician Assistant; Admitting Provider Internal Medicine; Emergency Provider Internal Medicine; PCP Registered Nurse; Visit Provider Internal Medicine
DX: J44.1 Chronic obstructive pulmonary disease with (acute) exacerbation (principal); J96.21 Acute and chronic respiratory failure with hypoxia; I12.9 Hypertensive chronic kidney disease with stage 1 through stage 4 chronic kidney disease, or unspecified chronic kidney disease; E11.65 Type 2 diabetes mellitus with hyperglycemia; E78.5 Hyperlipidemia, unspecified; N18.30 Chronic kidney disease, stage 3 unspecified; E11.22 Type 2 diabetes mellitus with diabetic chronic kidney disease; M05.9 Rheumatoid arthritis with rheumatoid factor, unspecified; F32.A Depression, unspecified; Z20.822 Contact with and (suspected) exposure to COVID-19; Z91.040 Latex allergy status; Z79.85 Long-term (current) use of injectable non-insulin antidiabetic drugs; Z79.899 Other long term (current) drug therapy
CPT/HCPCS: 0241U; 36415; 71046; 71250; 80048; 80076; 82803; 82947; 83036; 83735; 83880; 84484; 85025; 85610; 93005; 99285; J0456; J1644; J2920; J2930; J3475

== ENCOUNTER → 2023-07-15 18:58 | Outpatient (BNV) | payer OTHER, SELFPAY | PROVIDERS: Admitting Provider Internal Medicine; Emergency Provider Internal Medicine; PCP Registered Nurse; Visit Provider Internal Medicine Cardiovascular Disease | DX: R06.00 Dyspnea, unspecified (principal) | CPT/HCPCS: 93010 ==

== ENCOUNTER → 2023-07-16 00:53 | Outpatient (BNV) | payer OTHER, SELFPAY | PROVIDERS: Admitting Provider Internal Medicine; Emergency Provider Internal Medicine; PCP Registered Nurse; Visit Provider Internal Medicine | DX: J44.1 Chronic obstructive pulmonary disease with (acute) exacerbation (principal) | CPT/HCPCS: 99223; 99232; 99239; 99499 ==

== ENCOUNTER 2023-07-24 11:56 | Outpatient (REF) | payer OTHER, SELFPAY ==
[2023-07-24 14:26] LABS: Anion Gap 13 (12-20); Blood Urea Nitrogen 31 mg/dL (9-16); C Reactive Protein 1.08 mg/dL (< or = 0.50); Calcium 9.8 mg/dL (8.4-10.2); Carbon Dioxide 23 mmol/L (22-29); Chloride 107 mmol/L (96-108); Erythrocyte Sedimentation Rate 14 MM/HR (0-20); Estimated Glomerular Filt Rate 39; Glucose Random 180 mg/dL (60-115); Potassium 4.4 mmol/L (3.3-5.1); Sodium 139 mmol/L (135-145)
[2023-07-24 14:28] LABS: Uric Acid 7.7 mg/dL (2.4-5.7)
== END 2023-07-24 11:57 | disposition home or self-care (01) ==
LOC: HO.LAB 11:56
PROVIDERS: Nurse Practitioner Family; Visit Provider Internal Medicine
DX: N17.9 Acute kidney failure, unspecified (principal); M10.9 Gout, unspecified
CPT/HCPCS: 36415; 80048; 84550; 85652; 86140

== ENCOUNTER 2023-07-31 12:18 | Outpatient (AMB) | payer OTHER, SELFPAY ==
--- NOTE | 2023-07-31 12:32 | A.OFFVIS_ITS ---
Intake Vital Signs 07/31/23 12:39 Height 5 ft 5 in Weight 201 lb 4.513 oz BMI 33.5 BP 112/70 Blood Pressure Location Lt brachial Position Sitting Pulse 72 Pulse Source Pulse Oximeter Temp 97 F Temp Source Skin Pulse Oximetry (%) 96 Oxygen Delivery Method Room Air Intake Visit Reasons: Gout/OA Intake Note: Patient last seen 01/05/[address] Presley, presents today for follow up and test results. Master Certified Rv Technician Required: No Accompanied by: Self / Same As Patient Allergies latex [LATEX] Allergy (Intermediate, Verified 07/31/23 12:33) BLISTERS abatacept [From Orencia] Allergy (Unknown, Verified 07/31/23 12:33) Itching adalimumab [From Humira] Allergy (Verified 07/31/23 12:33) dizziness aspirin Adverse Reaction (Intermediate, Verified 07/31/23 12:33) abdominal pain HPI HPI Comments History of Present Illness Details Ms. Velazco returns today for follow-up evaluation of her gout and osteoarthritis. The patient denies any gout flare since last visit. Patient reports that she was recently hospitalized in June 2023 for respiratory compromise. She says her joint pains are tolerable . She offers no other concerns today 01/05/[address] Presley The patient returns for evaluation of her gout and osteoarthritis. In the past she had been treated for seropositive rheumatoid arthritis but treatment options were often met with lack of success and or toxicity.. She has been on multiple regimens. She has not been on any DMARD therapy for the past year. No joints have really flared up other than acute inflammatory attacks consistent with gout. She has now been on the Uloric for about 6 months with no attacks in the last 3 months. She does have colchicine available if needed for acute attacks but has not needed it for 3 months. She does have pain of a chronic nature mostly across the thumbs, , lower back and knees. She does take gabapentin and acetaminophen with some benefit. [facility], LAT[facility] Medical History Smoker History of Helicobacter pylori infection History of smoking at least 1 pack per day for at least 30 years Hypoxemia Pneumonia Osteoarthritis of both feet CKD (chronic kidney disease), stage III Lymphedema COVID-19 vaccine administered Hx of cardiac murmur Depression Anemia Hx of osteopenia Hx of gout Diabetes Elevated cholesterol HTN (hypertension) COPD (chronic obstructive pulmonary disease) GERD (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 reflux disease) assisted systemic steroid user Seropositive rheumatoid arthritis Asthma History of right breast cancer Surgical History Hx of hand surgery H/O cystoscopy Hx of thumb surgery H/O colonoscopy H/O local excision of skin lesion History of bilateral carpal tunnel release S/P lumpectomy, right breast History of esophagogastroduodenoscopy (EGD) Family History Father Throat cancer Mother Asthma Osteoarthritis Sister Breast cancer Social History Household Members: None Housing: House Do you presently have visiting nurse or other home services: No Unable to assess alcohol history related to: Unknown Alcohol intake: never Patient Tobacco Use Status: Former Tobacco user Quit Date: 2014 Tobacco use type: Cigarette e-Cigarette/Vaping Use: Never Used service: No Current occupational status: retired 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 No temporal artery tenderness, redness or swelling. EXTREMITIES: No edema, no calf tenderness, normal peripheral pulses. NEURO: Oriented and alert x3. No focal weakness. Reflexes symmetric. Gait normal. SKIN: No inflammatory or neoplastic lesions. Normal color and turgor JOINT EXAM:.?? Cervical Spine:.? Mild discomfort with extremes of normal range of motion. No tenderness. Thoracic Spine:.? No scoliosis.? No tenderness on palpation. Lumbar Spine:.? Alignment normal.? Full range of motion with mild pain at the extremes of motion. No tenderness. Chest Wall:.? No tenderness, swelling, increased warmth or erythema. Hands: Right: Mild tenderness at the base of the thumb. There is also some bony enlargement at the thumb IP in all the PIP joints. There is no tenderness or swelling in the MCPs. There is slight bony enlargement at the 2nd PIP without tenderness. There is no flexor tendon triggering, swelling, thenar atrophy or sensory loss. Left: Mild to moderate bony enlargement at the base of the thumb where there is mild tenderness. There is slight bony enlargement at the 2nd, 3rd and 4th PIP joints, the 3rd has mild tenderness. Elsewhere there is no tenderness or swelling. There is no flexor tendon triggering or swelling. There is slight thenar atrophy but no sensory loss. Wrists: Right:? Normal pain-free range of motion without tenderness, swelling, increased warmth or erythema. Left: Pain-free range of motion with some slight dorsal tenderness but no swelling. Elbows:. Normal pain-free range of motion without tenderness, swelling, increased warmth or erythema. Shoulders:.?? Full range of motion without pain. No tenderness, weakness, swelling, increased warmth or erythema. Hips:. Right:? Full range of motion with mild lumbar and buttock pain at the extremes of rotation. No groin pain with motion. Left: Pain-free range of m otion. Hip bursa:.? No tenderness. Knees:.??. Left: Normal pain-free range of motion with slight patellofemoral crepitus but no effusion, tenderness, swelling, increased warmth or erythema.? Right: Mild pain with extremes of range of motion. Some mild medial tenderness without effusion, redness or warmth. Ankles:.? Normal pain-free range of motion without tenderness, swelling, increased warmth or erythema. Feet:.? There is mild 1st MTP bony enlargement. This is more prominent on the left where there is some hallux valgus deformity. There is some slight tenderness on the left. Elsewhere in the feet there is normal pain-free range of motion without tenderness, swelling, increased warmth or erythema. Tender points:.? No tenderness to digital palpation at the occiput, trapezius, second rib, lateral epicondyle, knees, greater trochanter and gluteal area bilat erally. ? Results Reviewed Results Reviewed: Laboratory Tests 07/30/22 07/30/22 07/30/22 12:59 12:59 12:59 WBC 7.6 Hct 39.0 ESR 36 H Creatinine Uric Acid 6.2 H C-Reactive Protein 1.65 H 09/01/22 09/15/22 13:40 14:44 WBC Hct ESR Creatinine 1.50 H Uric Acid 4.2 C-Reactive Protein [address] [address] XRay Report SignedPatient: Mora Manrique MR#: [id number] : 1950 Acct:[id number] Age/Sex: 71 / F ADM Date: 02/06/22 Loc: HO.LAB Attending Dr: July Carey NP Ordering Physician: July Carey NP Date of Service: 02/06/22 Procedure(s): XR knee RT 3V Accession Number(s): [id number] cc: July Carey JUNIOR QA ANALYST~ EXAMINATION: XR KNEE, RIGHT? CLINICAL INFORMATION: M25.561 - Pain in right knee. COMPARISON: Radiographs right knee 11/16/2017? TECHNIQUE: 5 views of the right knee. FINDINGS: No fracture or dislocation or destructive process. There are degenerative changes greatest patellofemoral joint with joint narrowing and osteophytes. No erosive change. There is small benign cyst medial aspect medial femoral condyle similar to prior radiographs 2018. There is small suprapatellar effusion. Spurring at the quadriceps insertion patella and insertion patella tendon on the proximal anterior tibia again seen.? XR/XR knee RT 3V IMPRESSION: -Osteoarthritis, greatest patellofemoral joint. -Spurring extensor mechanism. Small suprapatellar effusion. ? Dictated By: Tremayne Gloria MD [address] [address] XRay Report SignedPatient: Mora Manrique MR#: [id number] : 1950 Acct:[id number] Age/Sex: 70 / F ADM Date: 09/18/20 Loc: HO.HOSX Attending Dr: Yasmin Cary MD Ordering Physician: Yasmin Cary MD Date of Service: 09/19/20 Procedure(s): XR hand RT min 3V Accession Number(s): [id number] cc: Yasmin Cary MD~ EXAMINATION: XR HAND, RIGHT XR HAND, LEFT CLINICAL INFORMATION: Bilateral hand pain.? COMPARISON: 06/14/2012? TECHNIQUE: 3 views of each hand.? FINDINGS: RIGHT HAND: At appears that the trapezium has been resected. No acute fracture or dislocation of the hand or wrist identified. There appear to be erosions involving the base of the 1st metacarpal as well as multiple carpal bones. There appear to be erosions involving the base of the 1st proximal phalanx as well as the head of the 1st proximal phalanx. There appears be erosion with some soft tissue prominence involving the head of the 3rd metacarpal. Small erosion is seen involving the base of the 4th proximal phalanx. There is some degenerative spurring present about the 1st interphalangeal joint as well as the 2nd proximal and distal interphalangeal joints. There appears to be some progression in erosive change compared to previous study. LEFT HAND: No acute fracture or dislocation is identified. There is degenerative change with joint space narrowing and marginal sclerosis and spurring about the 1st carpometacarpal joint. There appear to be a few small erosions involving the base of the 1st metacarpal, heads of the 2nd and 3rd metacarpals. There is some degenerative change with joint space narrowing and marginal spurring involving the 1st interphalangeal joint, the 3rd and 4th proximal interphalangeal joints, and the 1st metacarpophalangeal joint. There has been progression in disease since the previous study of 06/14/2012. XR/XR hand RT min 3V IMPRESSION: 1. 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 ? 2. Resection of the right trapezium.? Dictated By: PRATEEK LYNN MD Laboratory Tests 07/24/23 12:04 ESR 14 Creatinine 1.35 Estimated GFR 39 Uric Acid 7.7 H C-Reactive Protein 1.08 H Assessment & Plan Assessment & Plan (1) CKD (chronic kidney disease), stage III: Code(s): N18.30 - Chronic kidney disease, stage 3 unspecified Qualifiers: Chronic kidney disease stage 3 subtype: stage 3b (GFR 30-44) Qualified Code(s): N18.32 - Chronic kidney disease, stage 3b (2) Osteoarthritis of hands, bilateral: Code(s): M19.041 - Primary osteoarthritis, right hand; M19.042 - Primary osteoarthritis, left hand Qualifiers: Osteoarthritis type: primary Qualified Code(s): M19.041 - Primary osteoarthritis, right hand; M19.042 - Primary osteoarthritis, left hand (3) Osteoarthritis of right knee: Code(s): M17.11 - Unilateral primary osteoarthritis, right knee Qualifiers: Osteoarthritis type: primary Qualified Code(s): M17.11 - Unilateral primary osteoarthritis, right knee (4) Osteoarthritis of both feet: Code(s): M19.071 - Primary osteoarthritis, right ankle and foot; M19.072 - Primary osteoarthritis, left ankle and foot Qualifiers: Osteoarthritis type: primary Qualified Code(s): M19.071 - Primary osteoarthritis, right ankle and foot; M19.072 - Primary osteoarthritis, left ankle and foot (5) Gout: Comment: Allopurinol-December 2021- March 2022 Uloric -March 2022- present. Code(s): M10.9 - Gout, unspecified Qualifiers: Gout site: multiple sites Gout etiology: due to renal impairment Chronicity: chronic Presence of tophus: without tophus Qualified Code(s): M1A.39X0 - Chronic gout due to renal impairment, multiple sites, without tophus (tophi) Plan # gout/hyperuricemia : Ms. Velazco is currently on Uloric 80 mg q.d. and there appears to be fairly good control of gout attacks with this. Uloric was increased from 40 mg to 80 mg in December 2022, perhaps because the Uric acid increase from 4.8 -August 2022 to 6.0- December 2022. However, her Uric acid is more elevated now 7.7-July 2023. The patient was recently hospitalized and kidney appeared stressed at that time. We will check another uric acid and creatinine before next visit to assess if any correction. We will stay with the current dose of Uloric 80 mg for now and see what next labs reflect. Patient knows to call the office if flares. #OA Multiple sites:Her exam again shows some osteoarthritis mostly involving the right knee, hands and feet. She can continue to use acetaminophen for pains if needed. We might consider injection in the knee in the future if need be for the OA. I will repeat her inflammatory markers. Follow-up in 6months. Spent 40 minutes reviewing chart and history, evaluating patient, and docu menting Orders: Orders Erythrocyte Sedimentation Rate 6 Months M10.9 - Gout, unspecified Uric Acid 6 Months M10.9 - Gout, unspecified Complete Blood Count Auto Diff 6 Months M10.9 - Gout, unspecified Comprehensive Met. Panel 6 Months M10.9 - Gout, unspecified C Reactive Protein 6 Months M10.9 - Gout, unspecified Coding Level of Care Code Est Pt Level 4 (04996) Diagnoses Stage 3b chronic kidney disease N18.32 Chronic kidney disease stage 3 subtype: stage 3b (GFR 30-44) Primary osteoarthritis of both hands M19.041; M19.042 Osteoarthritis type: primary Primary osteoarthritis of right knee M17.11 Osteoarthritis type: primary Primary osteoarthritis of both feet M19.071; M19.072 Osteoarthritis type: primary Chronic gout due to renal impairment of multiple sites without tophus M1A.39X0 Gout site: multiple sites Gout etiology: due to renal impairment Chronicity: chronic Presence of tophus: without tophus
[2023-07-31 12:39] VITALS: BP 112/70; PULSE 72; TEMP 36.1; O2SAT 96; BMI 33.5
== END 2023-07-31 13:00 | disposition home or self-care (01) ==
PROVIDERS: PCP Registered Nurse; Visit Provider Nurse Practitioner Family
DX: N18.32 Chronic kidney disease, stage 3b (principal); M19.041 Primary osteoarthritis, right hand; M19.042 Primary osteoarthritis, left hand; M17.11 Unilateral primary osteoarthritis, right knee; M19.071 Primary osteoarthritis, right ankle and foot; M19.072 Primary osteoarthritis, left ankle and foot; M1A.39X0 Chronic gout due to renal impairment, multiple sites, without tophus (tophi)
CPT/HCPCS: 99214

== ENCOUNTER → 2023-07-31 12:18 | Outpatient (BNVA) | payer OTHER, SELFPAY | PROVIDERS: PCP Registered Nurse; Visit Provider Nurse Practitioner Family | DX: M1A.39X0 Chronic gout due to renal impairment, multiple sites, without tophus (tophi) (principal); M17.11 Unilateral primary osteoarthritis, right knee; M19.041 Primary osteoarthritis, right hand; M19.042 Primary osteoarthritis, left hand; M19.071 Primary osteoarthritis, right ankle and foot; M19.072 Primary osteoarthritis, left ankle and foot | CPT/HCPCS: 99212 ==

== ENCOUNTER 2023-08-12 14:49 | Outpatient (REF) | payer OTHER, SELFPAY ==
[2023-08-12 16:41] LABS: Alanine Aminotransferase 24 U/L (0-31); Albumin Level 4.3 g/dL (3.5-5.0); Alkaline Phosphatase 100 U/L (39-117); Anion Gap 12 (12-20); Aspartate Amino Transferase 18 U/L (5-31); Bilirubin Total 0.3 mg/dL (0.0-1.0); Blood Urea Nitrogen 19 mg/dL (9-16); Calcium 9.7 mg/dL (8.4-10.2); Carbon Dioxide 27 mmol/L (22-29); Chloride 105 mmol/L (96-108); Cholesterol 138 mg/dL (<200); Estimated Glomerular Filt Rate 50; Glucose Random 164 mg/dL (60-115); HDL Cholesterol 44 mg/dL (>40); LDL Cholesterol Calculated 51 mg/dL (<100); Sodium 140 mmol/L (135-145); Total Protein 7.5 g/dL (6.5-8.0); Triglycerides 218 mg/dL (<150)
== END 2023-08-12 14:50 | disposition home or self-care (01) ==
LOC: HO.HHCL 14:49
PROVIDERS: Visit Provider Student in an Organized Health Care Education/Training Program
DX: E11.22 Type 2 diabetes mellitus with diabetic chronic kidney disease (principal); N18.32 Chronic kidney disease, stage 3b; N17.9 Acute kidney failure, unspecified
CPT/HCPCS: 36415; 80053; 80061

== ENCOUNTER 2023-08-14 13:17 | Outpatient (REF) | payer OTHER, SELFPAY ==
--- NOTE | ~2023-08-14 | MM_ITS ---
EXAMINATION: MM DIAGNOSTIC DIGITAL BREAST TOMOSYNTHESIS, RIGHT CLINICAL INFORMATION: History of right breast IDC status post lumpectomy and conservation therapy. Evaluate subtle calcifications in the 3:00 position of the deep third of the right breast. COMPARISON: Mammography: 06/24/2023, 06/16/2022, 05/29/2021, 05/22/2020 TECHNIQUE: Digital breast tomosynthesis is performed. 2D images are generated from the tomosynthesis. The following views are obtained: Spot magnification right CC and right ML views, as well as a full-field 3-D right mediolateral view. FINDINGS: The breasts are heterogeneously dense, which may obscure small masses (ACR BI-RADS breast composition Category c). The subtle calcifications in the lateral inferior right breast, posterior one third are again identified, are minimally pleomorphic with one larger dystrophic appearing form, tightly grouped, without suspicious distribution. There are no branching, linear, or casting forms. There is no suspicious distribution. These findings are probably benign and six-month interval follow-up targeted diagnostic mammography right breast recommended to ensure stability utilizing standard magnification views. There is persistent trabecular thickening and anterior skin thickening from post therapy changes of the right breast. MM/MM tomosynthesis added views R IMPRESSION: Subtle tight grouping of calcifications in the slightly medial lower right breast, posterior one third, have a probably benign morphology and in retrospect may be present on 2020 exam. They are probably benign, and six-month interval follow-up diagnostic right mammography utilizing standard magnification views recommended to ensure stability. ASSESSMENT: BI-RADS BI-RADS 3 - Probably benign finding(s) - 6 month follow-up suggested RECOMMENDATION: 6 Month F/U Results were provided to the patient at time of visit by the technologist. This patient's information was entered into a reminder system with a target due date for their next mammogram.
== END 2023-08-14 13:18 | disposition home or self-care (01) ==
LOC: HO.MAMMO 13:17
PROVIDERS: PCP Registered Nurse; Visit Provider Registered Nurse
DX: R92.1 Mammographic calcification found on diagnostic imaging of breast (principal)
CPT/HCPCS: 77061; 77065

== ENCOUNTER → 2023-08-14 13:30 | Outpatient (BNV) | payer OTHER, SELFPAY | PROVIDERS: PCP Registered Nurse; Visit Provider Radiology Diagnostic Radiology | DX: R92.1 Mammographic calcification found on diagnostic imaging of breast (principal) | CPT/HCPCS: 77065; G0279 ==

== ENCOUNTER 2023-09-11 10:13 | Outpatient (REF) | payer OTHER, SELFPAY ==
[2023-09-11 11:35] LABS: MANUAL DIFF FLAG NO
[2023-09-11 12:05] LABS: Basophils Absolute Auto 0.1 X10*3/uL (0.0-0.2); Basophils Percent Auto 0.9 % (0-2); Eosinophils Absolute Auto 0.2 X10*3/uL (0.0-0.4); Eosinophils Percent Auto 2.9 % (0-4); Hematocrit 40.3 % (37.0-47.0); Hemoglobin 12.7 g/dl (12.0-16.0); Imm Gran Abs Auto 0.02 X10*3/uL (0.00-0.03); Imm Gran Pct Auto 0.3 % (0.0-0.4); Lymphocytes Absolute Auto 2.5 X10*3/uL (1.2-4.9); Lymphocytes Percent Auto 32.2 % (20-40); Mean Corpuscular HGB Conc 31.5 g/dl (31.0-35.0); Mean Corpuscular Volume 88.8 fL (80.0-98.0); Mean Platelet Volume 9.8 fL (9.4-12.3); Monocytes Absolute Auto 0.6 X10*3/uL (0.1-1.2); Monocytes Percent Auto 8.3 % (2-11); Neutrophils Absolute Auto 4.3 x10*3/uL (2.0-8.3); Neutrophils Percent Auto 55.4 % (45-73); Platelet Count 323 X10*3/uL (160-400); Red Blood Count 4.54 X10*6/uL (4.20-5.50); White Blood Count 7.7 X10*3/uL (4.8-10.8)
[2023-09-11 13:11] LABS: Erythrocyte Sedimentation Rate 25 MM/HR (0-20)
[2023-09-11 14:16] LABS: Alanine Aminotransferase 15 U/L (0-31); Albumin Level 4.1 g/dL (3.5-5.0); Alkaline Phosphatase 93 U/L (39-117); Anion Gap 12 (12-20); Aspartate Amino Transferase 16 U/L (5-31); Bilirubin Total 0.2 mg/dL (0.0-1.0); Blood Urea Nitrogen 27 mg/dL (9-16); C Reactive Protein 0.82 mg/dL (< or = 0.50); Calcium 9.4 mg/dL (8.4-10.2); Carbon Dioxide 25 mmol/L (22-29); Chloride 109 mmol/L (96-108); Estimated Glomerular Filt Rate 47; Glucose Random 145 mg/dL (60-115); Potassium 4.5 mmol/L (3.3-5.1); Sodium 141 mmol/L (135-145); Total Protein 7.2 g/dL (6.5-8.0)
== END 2023-09-11 10:14 | disposition home or self-care (01) ==
LOC: HO.HHCL 10:13
PROVIDERS: Visit Provider Nurse Practitioner Family
DX: Z00.00 Encounter for general adult medical examination without abnormal findings (principal); M10.9 Gout, unspecified
CPT/HCPCS: 36415; 80053; 84550; 85025; 85652; 86140

== ENCOUNTER 2023-10-13 10:27 | Outpatient (REF) | payer OTHER, SELFPAY ==
[2023-10-13 11:44] LABS: Hematocrit 37.2 % (37.0-47.0); Hemoglobin 12.1 g/dl (12.0-16.0); Mean Corpuscular HGB Conc 32.5 g/dl (31.0-35.0); Mean Corpuscular Volume 86.1 fL (80.0-98.0); Platelet Count 277 X10*3/uL (160-400); Red Blood Count 4.32 X10*6/uL (4.20-5.50); Red Cell Distribution Width 14.8 % (11.0-16.0); White Blood Count 7.1 X10*3/uL (4.8-10.8)
[2023-10-13 11:58] LABS: Estimated Average Glucose 169 mg/dL; Hemoglobin A1c % 7.5 % (<6.0)
[2023-10-13 12:03] LABS: Alanine Aminotransferase 18 U/L (0-31); Albumin Level 4.2 g/dL (3.5-5.0); Alkaline Phosphatase 93 U/L (39-117); Anion Gap 15 (12-20); Aspartate Amino Transferase 16 U/L (5-31); Bilirubin Total 0.3 mg/dL (0.0-1.0); Blood Urea Nitrogen 39 mg/dL (9-16); Calcium 9.5 mg/dL (8.4-10.2); Carbon Dioxide 23 mmol/L (22-29); Chloride 109 mmol/L (96-108); Cholesterol 123 mg/dL (<200); Estimated Glomerular Filt Rate 33; Glucose Random 135 mg/dL (60-115); HDL Cholesterol 37 mg/dL (>40); LDL Cholesterol Calculated 60 mg/dL (<100); Potassium 4.8 mmol/L (3.3-5.1); Sodium 142 mmol/L (135-145); Total Protein 7.2 g/dL (6.5-8.0); Triglycerides 130 mg/dL (<150)
[2023-10-13 12:25] LABS: TSH reflex Free T4 2.28 uIU/mL (0.32-4.0)
[2023-10-13 12:35] LABS: Folate 9.5 ng/mL (> or = 4.0); Vitamin B12 383 pg/mL (200-900)
[2023-10-14 08:15] LABS: HBsAGNum1 0.32 S/CO (0.00-0.99); HIV AB/AG Nonreactive (Nonreactive); HIV Num 1 0.05 S/CO (0.00-0.99); Hepatitis B Core Antibody Nonreactive (Nonreactive); Hepatitis B Surface Antigen Negative (Negative); ~Hepatitis B Surface Antibody NONREACTIVE (Nonreactive); ~Hepatitis C Antibody Nonreactive (Nonreactive)
[2023-10-14 08:23] LABS: Syphilis Screen Nonreactive (Nonreactive)
== END 2023-10-13 10:28 | disposition home or self-care (01) ==
LOC: HO.HHCL 10:27
PROVIDERS: Visit Provider Student in an Organized Health Care Education/Training Program
DX: Z00.00 Encounter for general adult medical examination without abnormal findings (principal)
CPT/HCPCS: 36415; 80053; 80061; 82306; 82607; 82746; 83036; 84443; 85027; 86704; 86706; 86780; 86803; 87340; 87389

== ENCOUNTER 2023-11-24 11:59 | Outpatient (REF) | payer OTHER, SELFPAY ==
[2023-11-24 13:55] LABS: Alanine Aminotransferase 18 U/L (0-31); Albumin Level 4.2 g/dL (3.5-5.0); Alkaline Phosphatase 101 U/L (39-117); Anion Gap 13 (12-20); Aspartate Amino Transferase 17 U/L (5-31); Bilirubin Total 0.3 mg/dL (0.0-1.0); Blood Urea Nitrogen 28 mg/dL (9-16); Calcium 10.1 mg/dL (8.4-10.2); Carbon Dioxide 24 mmol/L (22-29); Chloride 109 mmol/L (96-108); Estimated Glomerular Filt Rate 39; Glucose Random 159 mg/dL (60-115); Potassium 4.5 mmol/L (3.3-5.1); Sodium 141 mmol/L (135-145); Total Protein 7.2 g/dL (6.5-8.0)
== END 2023-11-24 12:00 | disposition home or self-care (01) ==
LOC: HO.HHCL 11:59
PROVIDERS: Visit Provider Student in an Organized Health Care Education/Training Program
DX: N17.9 Acute kidney failure, unspecified (principal)
CPT/HCPCS: 36415; 80053

== ENCOUNTER 2023-12-11 13:51 | Outpatient (AMB) | payer MEDICARE, MEDICAID, SELFPAY ==
[2023-12-11 13:55] VITALS: BP 106/52; PULSE 72; BMI 33.6
--- NOTE | 2023-12-11 13:55 | MHC.OFFVIS ---
Vital Signs 12/11/23 13:55 Height 5 ft 5 in Weight 201 lb 15.095 oz BMI 33.6 BP 106/52 L Blood Pressure Location Lt brachial Position Sitting Pulse 72 Intake Visit Reasons: 6 months follow up Intake Note: Mora presents in office today for 6 months follow up of GERD. CC: Patient reports doing well and denies having any GI concerns today. 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 Accompanied by: Self / Same As Patient Allergies latex [LATEX] Allergy (Intermediate, Verified 07/31/23 12:33) BLISTERS abatacept [From Orencia] Allergy (Unknown, Verified 07/31/23 12:33) Itching adalimumab [From Humira] Allergy (Verified 07/31/23 12:33) dizziness aspirin Adverse Reaction (Intermediate, Verified 07/31/23 12:33) abdominal pain HPI HPI 6 months follow up: Details: Assessment & Plan (1) GERD (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 reflux disease): Code(s): K21.9 - Gastro-esophageal reflux disease without esophagitis (2) Former smoker: Comment: quit 8 years ago Code(s): Z87.891 - Personal history of nicotine dependence Plan She is recovering well form her pneumonia, but she stopped smoking about 8 year ago!! She centimes to do well on her Dexliant with good control of her GERD> ROV 6 mos. TODAY'S VISIT She continues to do well on her Dexliant with good control of her GERD She is newly on ozempic and causing CIC. 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 Dulcolax 1-2 qhs. ROV if not better - she is only at 1mg oz so may worsen. ROV [address] [facility] Medical History Uncontrolled type 2 diabetes mellitus with hyperglycemia Chronic lung disease Acute and chronic respiratory failure with hypoxia HTN (hypertension), benign Smoker History of Helicobacter pylori infection History of smoking at least 1 pack per day for at least 30 years Hypoxemia Pneumonia Osteoarthritis of both feet CKD (chronic kidney disease), stage III Lymphedema COVID-19 vaccine administered Hx of cardiac murmur Depression Anemia Hx of osteopenia Hx of gout Diabetes Elevated cholesterol HTN (hypertension) COPD (chronic obstructive pulmonary disease) GERD (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 reflux disease) [facility] systemic steroid user Seropositive rheumatoid arthritis Asthma History of right breast cancer Surgical History Hx of hand surgery H/O cystoscopy Hx of thumb surgery H/O colonoscopy H/O local excision of skin lesion History of bilateral carpal tunnel release S/P lumpectomy, right breast History of esophagogastroduodenoscopy (EGD) Family History Father Throat cancer Mother Asthma Osteoarthritis Sister Breast cancer Social History Household Members: None Housing: House Do you presently have visiting nurse or other home services: No Unable to assess alcohol history related to: Unknown Alcohol intake: never Patient Tobacco Use Status: Former Tobacco user Tobacco use type: Cigarette e-Cigarette/Vaping Use: Never Used service: No Current occupational status: retired 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 Female Reproductive History Menstrual Age of Menarche: 14 Review of Systems Const Denies fatigue, Denies fever(s), Denies night sweats, Denies poor appetite and Denies weight loss Eyes Details: glasses Reports requires corrective lenses ENT Reports Normal hearing present, Denies dental pain, Denies dysphagia, Denies hearing loss, Denies mouth pain, Denies odynophagia, Denies throat swelling, Denies tongue swelling and Reports other (Dentition adequate) Card Reports no additional complaints Resp Reports no additional complaints GI Details: Denies abdominal pain, Denies melena, Denies bloating, Denies hematochezia, Reports constipation, Denies GI cramping, Denies dysphagia, Denies excessive flatus, Denies early satiety, Reports heartburn, Denies diarrhea, Denies nausea, Denies odynophagia, Denies vomiting and Denies hematemesis Skin/Breast Denies pruritus, Denies lesions, Denies rash and Denies jaundice Neuro Reports Normal hearing present and Denies Abnormal speech present Endo Denies fatigue Aller/Immun Denies throat swelling and Denies tongue swelling Physical Exam Vital Signs: Last Vital Signs Pulse 72 12/11/23 13:55 BP 106/52 L 12/11/23 13:55 BMI result Body Mass Index 33.6 Const General: cooperative, no acute distress, well developed and well groomed Nutritional Appearance: well nourished and obese Orientation/consciousness: oriented to person, oriented to place and oriented to time Limitations: No language barrier HEENT Head: Yes normocephalic and Yes atraumatic Eyes General: appearance normal, both eyes and all related structures Pupils: Equal, round and reactive pupils present Neck Neck: Yes normal visual inspection and Yes no lymphadenopathy Thyroid: Thyroid normal Resp Effort & Inspection: normal respiratory effort and able to speak in complete sentences Auscultation: clear to auscultation bilaterally Cardio Rate: regular rate Rhythm: regular rhythm Heart sounds: Normal, physiologic split S2 sound present Peripheral pulses: radial pulses present and posterior tibial pulses present GI Inspection: No distended, No Abdominal panniculus present and Yes obesity Palpation (GI): Soft to palpation, nontender, no guarding, not rigid and No hepatosplenomegaly present Percussion: Yes normal to percussion Auscultation: normal bowel sounds Rectal Exam - Female: deferred Skin General skin exam: no rashes or lesions noted, turgor normal, skin not dry, no jaundice, No spider nevi and no striae Rashes: no rashes Nails: normal Neuro General: oriented to person, oriented to place and oriented to time Cranial nerves: Yes Equal, round and reactive pupils present and Yes Normal hearing present Speech: No Abnormal speech present Extrem General: Yes normal to inspection, No clubbing, No cyanosis and No edema Psych Appearance: grossly normal and well kempt Mental Status: mental status grossly normal Speech and movement: Normal speech and movement present Affect: normal affect Attitude: cooperative Thought process: Normal thought process present and not confabulating Thought content: Normal thought content present Insight: Limited insight present (Psych) Judgement: Limited judgement present (Psych) Assessment & Plan Assessment & Plan (1) Constipation due to slow transit: Code(s): K59.01 - Slow transit constipation Category: Medical (2) GERD (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 reflux disease): Code(s): K21.9 - Gastro-esophageal reflux disease without esophagitis Category: Medical Plan She continues to do well on her Dexliant with good control of her GERD She is newly on ozempic and causing CIC. 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 Dulcolax 1-2 qhs. ROV if not better - she is only at 1mg oz so may worsen. ROV 6 mos or sooner. Medications: New bisacodyl (Dulcolax (bisacodyl)) 10 mg (2 x 5 mg) PO BEDTIME 60 tabs 6RF 30 days K59.01 - Slow transit constipation Refilled dexlansoprazole 60 mg PO QAM 90 caps 0RF Coding Level of Care Code Est Pt Level 3 (57513) Diagnoses Constipation due to slow transit K59.01 GERD (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 reflux disease) K21.9
== END 2023-12-11 14:39 | disposition home or self-care (01) ==
PROVIDERS: PCP Student in an Organized Health Care Education/Training Program; Visit Provider Nurse Practitioner
DX: K59.01 Slow transit constipation (principal); K21.9 Gastro-esophageal reflux disease without esophagitis
CPT/HCPCS: 99213

== ENCOUNTER → 2023-12-11 13:51 | Outpatient (BNVA) | payer MEDICARE, MEDICAID, SELFPAY | PROVIDERS: PCP Student in an Organized Health Care Education/Training Program; Visit Provider Nurse Practitioner | DX: K21.9 Gastro-esophageal reflux disease without esophagitis (principal); K59.01 Slow transit constipation; K59.04 Chronic idiopathic constipation; T50.995A Adverse effect of other drugs, medicaments and biological substances, initial encounter; X58.XXXA Exposure to other specified factors, initial encounter; Y92.9 Unspecified place or not applicable; Z79.899 Other long term (current) drug therapy | CPT/HCPCS: 99212 ==

== ENCOUNTER 2024-03-04 13:05 | Outpatient (AMB) | payer MEDICARE, SELFPAY ==
--- NOTE | 2024-03-04 13:06 | A.OFFVIS_ITS ---
Vital Signs 03/04/24 13:15 Height 5 ft 5 in Weight 203 lb 11.314 oz BMI 33.9 BP 90/62 Blood Pressure Location Lt brachial Position Sitting Respiration 18 Pulse 70 Pulse Source Pulse Oximeter Pulse Oximetry (%) 94 Oxygen Delivery Method Room Air Intake Visit Reasons: Gout/OA Intake Note: Patient presents for Gout/OA. Allergies latex [LATEX] Allergy (Intermediate, Verified 03/04/24 13:10) BLISTERS abatacept [From Orencia] Allergy (Unknown, Verified 03/04/24 13:10) Itching adalimumab [From Humira] Allergy (Verified 03/04/24 13:10) dizziness aspirin Adverse Reaction (Intermediate, Verified 03/04/24 13:10) abdominal pain Medication List - Last Reconciled 03/04/24 by Aleyda Wade MD albuterol sulfate 2.5 mg inhalation Q4H PRN albuterol sulfate 90 mcg/actuation 2 puffs inhalation Q4H PRN azelastine 1 spray intranasal BID PRN bisacodyl (Dulcolax (bisacodyl)) 10 mg (2 x 5 mg) PO BEDTIME 30 days blood sugar diagnostic (FreeStyle Lite Strips) As directed citalopram 40 mg PO DAILY colchicine 0.6 mg PO DAILY PRN dapagliflozin propanediol (Farxiga) 5 mg PO DAILY febuxostat 80 mg PO QAM ferrous gluconate 324 mg PO Q48H gabapentin 300 mg PO TID hydrochlorothiazide 12.5 mg PO DAILY loratadine (Allergy Relief (loratadine)) 10 mg PO DAILY melatonin 10 mg PO BEDTIME PRN montelukast 10 mg PO BEDTIME semaglutide (Ozempic) 1 mg subcut QWEEK simvastatin 20 mg PO BEDTIME HPI Comments Details: Patient is a 73 y.o. female with asthma, diabetes (A1C ), HTN, HLD, depression, polyarticular OA and crystal proven non erosive gout here today for follow up Interval History: Last seen 07/31/2023 with Rachna Collazo. At that time patient was stable and no changes were made to her medications. Today, Joint pain still about the same Mainly - low back, hands and knees AM stiffness about 30 mins Denies any gout flares with in the past 1-2 years. Rheumatologic History: Presented over 5 years ago with joint pain. There was no evidence of synovitis but serologies came back with positive CCP. She was treated as seropositive rheumatoid arthritis and had been on several regimens. However these treatment options were met with little to no response to her joint pain and so the diagnosis was brought into question. She has been off of her DMARDs since 2021. She has not had any flare-ups of her joints apart from the monoarticular flares of gout. Her x-rays did show erosions which could be attributed to crystal disease versus rheumatoid arthritis. 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 Medication History: Plaquenil: 06/2016-11/2019 Arava:08/2019-11/2019 Methotrexate: [id number]-[id number] relief of symptoms Humira: August 2020-self discontinued due to fatigue Prednisone: 06/2014-12/2019 GI upset Enbrel: Considered but not started due to latex allergy Orencia: 05/2021- 07/2021 Full body itching, no improvement in symptoms Kevzara: 07/2021-December 2021 Allopurinol stopped due to headaches Current Rheumatology Medication(s): Febuxostat 80mg daily Colchicine 0.6mg prn Gabapentin 300mg tid PFSH Medical History (Updated 03/04/24 @ 14:04 by Aleyda Wade MD) Back pain Uncontrolled type 2 diabetes mellitus with hyperglycemia Chronic lung disease Acute and chronic respiratory failure with hypoxia HTN (hypertension), benign Smoker History of Helicobacter pylori infection History of smoking at least 1 pack per day for at least 30 years Hypoxemia Pneumonia Osteoarthritis of both feet CKD (chronic kidney disease), stage III Lymphedema COVID-19 vaccine administered Hx of cardiac murmur Depression Anemia Hx of osteopenia Hx of gout Diabetes Elevated cholesterol HTN (hypertension) COPD (chronic obstructive pulmonary disease) GERD (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 reflux disease) 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 Seropositive rheumatoid arthritis Asthma History of right breast cancer Surgical History Hx of hand surgery H/O cystoscopy Hx of thumb surgery H/O colonoscopy H/O local excision of skin lesion History of bilateral carpal tunnel release S/P lumpectomy, right breast History of esophagogastroduodenoscopy (EGD) Family History Father Throat cancer Mother Asthma Osteoarthritis Sister Breast cancer Social History Household Members: None Housing: House Do you presently have visiting nurse or other home services: No Unable to assess alcohol history related to: Unknown Alcohol intake: never Patient Tobacco Use Status: Former Tobacco user Tobacco use type: Cigarette e-Cigarette/Vaping Use: Never Used service: No Current occupational status: retired 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 Female Reproductive History Menstrual Age of Menarche: 14 Review of Systems Const Details: Review of Systems Constitutional: Denies fever, chills, weight loss ENT: Denies vision changes, eye pain or eye redness, dental caries, dry mouth GI: Denies nausea, vomiting, diarrhea, abdominal pain, change in BM Pulm: Denies SOB, MONTE, hemoptysis, wheezing Cards: Denies chest pain, palpitations Skin: Denies Raynaud's, rash, nail changes, photosensitivity, 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 ?Gait normal. Constitutional Mucous membranes pink and moist patient alert and cooperative HEENT Conjunctiva and sclera clear. ?Pupils equal round and reactive to light. ?No lymphadenopathy. ?Normal dentition. Respiratory System Normal respiratory effort and able to speak in complete sentences. ?Clear to auscultation bilaterally. ?No crackles, rales, rhonchi, wheezes heard. Cardiac System Regular rate and rhythm. ?S1 and S2 heard no murmurs. ?Radial pulses intact bilaterally MSK No deformity, swelling, abnormalities noted to bilateral hands. ?No evidence of synovitis. ?Able to move all joints with full range of motion, without limitation. Crepitations to knees noted bilaterally. Positive CMC grind test bilaterally left worse than right. Results Reviewed Results Reviewed: Laboratory Tests 07/24/23 09/11/23 10/13/23 12:04 10:15 10:30 WBC 7.7 7.1 RBC 4.54 4.32 Hgb 12.7 12.1 Hct 40.3 37.2 Plt Count 323 277 ESR 14 25 H Sodium 142 Potassium 4.8 Chloride 109 H Carbon Dioxide 23 BUN 39 H Creatinine 1.53 H Total Bilirubin 0.3 AST 16 ALT 18 Alkaline Phosphatase 93 C-Reactive Protein 1.08 H 0.82 H 11/24/23 12:06 WBC RBC Hgb Hct Plt Count ESR Sodium 141 Potassium 4.5 Chloride 109 H Carbon Dioxide 24 BUN 28 H Creatinine 1.34 Total Bilirubin 0.3 AST 17 ALT 18 Alkaline Phosphatase 101 C-Reactive Protein Hand XR 09/19/20 FINDINGS: RIGHT HAND: At appears that the trapezium has been resected. No acute fracture or dislocation of the hand or wrist identified. There appear to be erosions involving the base of the 1st metacarpal as well as multiple carpal bones. There appear to be erosions involving the base of the 1st proximal phalanx as well as the head of the 1st proximal phalanx. There appears be erosion with some soft tissue prominence involving the head of the 3rd metacarpal. Small erosion is seen involving the base of the 4th proximal phalanx. There is some degenerative spurring present about the 1st interphalangeal joint as well as the 2nd proximal and distal interphalangeal joints. There appears to be some progression in erosive change compared to previous study. LEFT HAND: No acute fracture or dislocation is identified. There is degenerative change with joint space narrowing and marginal sclerosis and spurring about the 1st carpometacarpal joint. There appear to be a few small erosions involving the base of the 1st metacarpal, heads of the 2nd and 3rd metacarpals. There is some degenerative change with joint space narrowing and marginal spurring involving the 1st interphalangeal joint, the 3rd and 4th proximal interphalangeal joints, and the 1st metacarpophalangeal joint. There has been progression in disease since the previous study of 06/14/2012. Foot XR 12/30/21 FINDINGS: Right foot: Mild diffuse osteopenia. Bony alignments are intact. The cortices are intact. Enthesopathy at the insertional site of the Achilles tendon to the calcaneus and small posterior plantar calcaneal spot is present. Degenerative osteoarthrosis is noted at the talonavicular joint. No evidence of any articular or subarticular erosion. No evidence of any periosteal reaction. Left foot: Mild diffuse osteopenia. The bony alignments are intact. The cortices are intact. No evidence of any articular or subarticular erosion or periosteal reaction. Small posterior plantar calcaneal spur and enthesopathy at the insertional site of the Achilles tendon to the calcaneus. Subtalar spur is present. Right Elbow 12/30/21 Right elbow: Bony alignments are intact. The cortices are intact. No evidence of any articular or subarticular erosion or joint effusion present. Subchondral sclerosis, osteophyte formations, consistent with osteoarthrosis related changes are present mostly at the radiohumeral joint. In addition, well-corticated bony scars are present involving both medial as well as lateral epicondyles of the humerus, consistent with enthesopathy. Assessment & Plan Assessment & Plan (1) Gout: Comment: Allopurinol-December 2021- March 2022 Uloric -March 2022- present. Code(s): M10.9 - Gout, unspecified Category: Medical Qualifiers: Gout site: multiple sites Gout etiology: due to renal impairment Chronicity: chronic Presence of tophus: without tophus Qualified Code(s): M1A.39X0 - Chronic gout due to renal impairment, multiple sites, without tophus (tophi) Plan: #Non crystal proven erosive gout Patient's uric acid is at goal. We will continue the febuxostat. Colchicine given for breakthrough flares. We will check uric acid at next visit. (2) Osteoarthritis of hands, bilateral: Code(s): M19.041 - Primary osteoarthritis, right hand; M19.042 - Primary osteoarthritis, left hand Category: Medical Qualifiers: Osteoarthritis type: primary Qualified Code(s): M19.041 - Primary osteoarthritis, right hand; M19.042 - Primary osteoarthritis, left hand Plan: #Hand OA Bilateral hand OA with 1st CMC involvement. Recommended topical diclofenac. (3) Osteoarthritis of right knee: Code(s): M17.11 - Unilateral primary osteoarthritis, right knee Category: Medical Qualifiers: Osteoarthritis type: primary Qualified Code(s): M17.11 - Unilateral primary osteoarthritis, right knee Plan: #Knee OA Bilateral knee OA. Recommended topical diclofenac. Continue gabapentin. (4) Seropositive rheumatoid arthritis: Comment: Plaquenil: 06/2016-11/2019 Arava:08/2019-11/2019 Methotrexate: [id number] relief of symptoms Humira: August 2020-self discontinued due to fatigue Prednisone: 06/2014-12/2019 GI upset Enbrel: Considered but not started due to latex allergy Orencia: 05/2021- 07/2021 Full body itching, no improvement in symptoms Wily: 07/2021-December 2021. No synovitis seen in 2022 Code(s): M05.9 - Rheumatoid arthritis with rheumatoid factor, unspecified Category: Medical Plan: #?Inflammatory arthritis Patient had a previous diagnosis of seropositive rheumatoid arthritis based on positive CCP and polyarticular joint pain. She was on several regimen which did not improve her pain. The diagnosis was called into question and she may have had crystal disease related inflammatory arthritis. She is currently stable from that point. I would still check X this at next visit. As well as serologies. No further immunosuppression at this time. (5) Back pain: Code(s): M54.9 - Dorsalgia, unspecified Category: Medical Qualifiers: Back pain location: low back pain Chronicity: chronic Back pain laterality: midline Sciatica presence: without sciatica Qualified Code(s): M54.50 - Low back pain, unspecified; G89.29 - Other chronic pain Plan: #Back pain Patient complain of chronic low back pain. Recommended exercises and same printed. Also recommended Salonpas capsaicin patch. We will review in 6 months. Plan I spent 25 minutes reviewing the record and labs, seeing the patient, discussing the treatment plan and documenting in the medical record Orders: Orders Erythrocyte Sedimentation Rate 6 Months M17.11 - Unilateral primary osteoarthritis, right knee, M19.041 - Primary osteoarthritis, right hand, M19.042 - Primary osteoarthritis, left hand, M1A.39X0 - Chronic gout due to renal impairment, multiple sites, without tophus (tophi) C Reactive Protein 6 Months M17.11 - Unilateral primary osteoarthritis, right knee, M19.041 - Primary osteoarthritis, right hand, M19.042 - Primary osteoarthritis, left hand, M1A.39X0 - Chronic gout due to renal impairment, multiple sites, without tophus (tophi) Uric Acid 6 Months M17.11 - Unilateral primary osteoarthritis, right knee, M19.041 - Primary osteoarthritis, right hand, M19.042 - Primary osteoarthritis, left hand, M1A.39X0 - Chronic gout due to renal impairment, multiple sites, without tophus (tophi) Rheumatoid Factor 6 Months M17.11 - Unilateral primary osteoarthritis, right knee, M19.041 - Primary osteoarthritis, right hand, M19.042 - Primary osteoarthritis, left hand, M1A.39X0 - Chronic gout due to renal impairment, multiple sites, without tophus (tophi) Creatine Kinase Total 6 Months M17.11 - Unilateral primary osteoarthritis, right knee, M19.041 - Primary osteoarthritis, right hand, M19.042 - Primary osteoarthritis, left hand, M1A.39X0 - Chronic gout due to renal impairment, multiple sites, without tophus (tophi) Comprehensive Met. Panel 6 Months M17.11 - Unilateral primary osteoarthritis, right knee, M19.041 - Primary osteoarthritis, right hand, M19.042 - Primary osteoarthritis, left hand, M1A.39X0 - Chronic gout due to renal impairment, multiple sites, without tophus (tophi) Complete Blood Count Auto Diff 6 Months M17.11 - Unilateral primary osteoarthritis, right knee, M19.041 - Primary osteoarthritis, right hand, M19.042 - Primary osteoarthritis, left hand, M1A.39X0 - Chronic gout due to renal impairment, multiple sites, without tophus (tophi) Cyclic Citrullinated Peptide 6 Months M17.11 - Unilateral primary osteoarthritis, right knee, M19.041 - Primary osteoarthritis, right hand, M19.042 - Primary osteoarthritis, left hand, M1A.39X0 - Chronic gout due to renal impairment, multiple sites, without tophus (tophi) Medications: New diclofenac sodium 1% apply to single knee, ankle, foot; for foot includes sole/toes/top of foot 4 grams topical QID 90 days 100 grams 3RF M17.11 - Unilateral primary osteoarthritis, right knee, M19.041 - Primary osteoarthritis, right hand, M19.042 - Primary osteoarthritis, left hand, M1A.39X0 - Chronic gout due to renal impairment, multiple sites, without tophus (tophi) Changed From febuxostat 80 mg PO QAM 90 tabs 0RF M10.9 - Gout, unspecified To febuxostat 80 mg PO QAM 90 days 90 tabs 2RF M10.9 - Gout, unspecified From gabapentin 300 mg PO TID M79.7 - Fibromyalgia To gabapentin 300 mg PO TID 90 days 270 caps 2RF M79.7 - Fibromyalgia Refilled colchicine prn gout flare 0.6 mg PO DAILY PRN 10 tabs 0RF Pain M10.9 - Gout, unspecified Coding Level of Care Code Est Pt Level 3 (40123) Diagnoses Chronic gout due to renal impairment of multiple sites without tophus M1A.39X0 Gout site: multiple sites Gout etiology: due to renal impairment Chronicity: chronic Presence of tophus: without tophus Primary osteoarthritis of both hands M19.041; M19.042 Osteoarthritis type: primary Primary osteoarthritis of right knee M17.11 Osteoarthritis type: primary Seropositive rheumatoid arthritis M05.9 Chronic midline low back pain without sciatica M54.50; G89.29 Back pain location: low back pain Chronicity: chronic Back pain laterality: midline Sciatica presence: without sciatica
[2024-03-04 13:15] VITALS: BP 90/62; PULSE 70; RESP 18; O2SAT 94; BMI 33.9
== END 2024-03-04 13:36 | disposition home or self-care (01) ==
PROVIDERS: PCP Student in an Organized Health Care Education/Training Program; Visit Provider Student in an Organized Health Care Education/Training Program
DX: M1A.39X0 Chronic gout due to renal impairment, multiple sites, without tophus (tophi) (principal); M19.041 Primary osteoarthritis, right hand; M19.042 Primary osteoarthritis, left hand; M17.11 Unilateral primary osteoarthritis, right knee; M05.79 Rheumatoid arthritis with rheumatoid factor of multiple sites without organ or systems involvement; M54.50 Low back pain, unspecified; G89.29 Other chronic pain
CPT/HCPCS: 99214

== ENCOUNTER → 2024-03-04 13:05 | Outpatient (BNVA) | payer MEDICARE, SELFPAY | PROVIDERS: PCP Student in an Organized Health Care Education/Training Program; Visit Provider Student in an Organized Health Care Education/Training Program | DX: M1A.39X0 Chronic gout due to renal impairment, multiple sites, without tophus (tophi) (principal); M17.11 Unilateral primary osteoarthritis, right knee; M19.041 Primary osteoarthritis, right hand; M19.042 Primary osteoarthritis, left hand; M05.9 Rheumatoid arthritis with rheumatoid factor, unspecified; M54.50 Low back pain, unspecified; G89.29 Other chronic pain; M79.7 Fibromyalgia | CPT/HCPCS: 99212 ==

== ENCOUNTER 2024-03-18 12:05 | Outpatient (REF) | payer MEDICARE, SELFPAY ==
[2024-03-18 12:45] LABS: MANUAL DIFF FLAG NO
[2024-03-18 12:57] LABS: Basophils Percent Auto 0.6 % (0-2); Eosinophils Absolute Auto 0.1 X10*3/uL (0.0-0.4); Eosinophils Percent Auto 1.8 % (0-4); Hematocrit 40.4 % (37.0-47.0); Hemoglobin 13.4 g/dl (12.0-16.0); Imm Gran Abs Auto 0.02 X10*3/uL (0.00-0.03); Imm Gran Pct Auto 0.3 % (0.0-0.4); Lymphocytes Absolute Auto 1.7 X10*3/uL (1.2-4.9); Lymphocytes Percent Auto 23.6 % (20-40); Mean Corpuscular HGB Conc 33.2 g/dl (31.0-35.0); Mean Corpuscular Hemoglobin 29.3 pg (27.0-33.0); Mean Corpuscular Volume 88.2 fL (80.0-98.0); Mean Platelet Volume 9.7 fL (9.4-12.3); Monocytes Absolute Auto 0.3 X10*3/uL (0.1-1.2); Monocytes Percent Auto 4.8 % (2-11); Neutrophils Absolute Auto 4.9 x10*3/uL (2.0-8.3); Neutrophils Percent Auto 68.9 % (45-73); Platelet Count 249 X10*3/uL (160-400); Red Blood Count 4.58 X10*6/uL (4.20-5.50); Red Cell Distribution Width 14.3 % (11.0-16.0); White Blood Count 7.1 X10*3/uL (4.8-10.8)
[2024-03-18 13:00] LABS: Estimated Average Glucose 151 mg/dL; Hemoglobin A1c % 6.9 % (<6.0); Total Hemoglobin (HGBA1C) 3523.6683 umol/L
[2024-03-18 13:01] LABS: Appearance Urine Clear; Color Urine Yellow; Glucose Urine UA >=1000 mg/dL (Negative); Leukocyte Esterase Urine Trace (Negative); Nitrite Urine Negative (Negative); PH 5.5 (5.0-9.0); Specific Gravity - Urine 1.015 (1.005-1.025); UMIC TRIGGER UA YES; Urine Blood Negative (Negative); Urine Ketones Negative (Negative); Urine Protein Negative (Neg-Trace)
[2024-03-18 13:04] LABS: Bacteria Urine Trace (None Seen); Hyaline Casts Urine 0-2 /LPF (0-2); RBC Urine 0-2 /HPF (0-2); WBC Urine 0-5 /HPF (0-5)
[2024-03-18 13:32] LABS: Parathyroid Hormone Intact 116.7 pg/mL (8.7-77.1)
[2024-03-18 13:34] LABS: Creatinine Urine 53.29 mg/dL; Total Protein Urine Random < 7 mg/dL (<12)
[2024-03-18 13:35] LABS: Anion Gap 14 (12-20); Blood Urea Nitrogen 23 mg/dL (9-16); Calcium 9.8 mg/dL (8.4-10.2); Carbon Dioxide 20 mmol/L (22-29); Chloride 111 mmol/L (96-108); Estimated Glomerular Filt Rate 40; Phosphorus 3.6 mg/dL (2.7-4.5); Potassium 4.5 mmol/L (3.3-5.1); Sodium 140 mmol/L (135-145)
[2024-03-18 13:52] LABS: Vitamin D 25-OH Total 35.3 ng/mL (>30)
== END 2024-03-18 12:06 | disposition home or self-care (01) ==
LOC: HO.LAB 12:05
PROVIDERS: PCP Student in an Organized Health Care Education/Training Program; Visit Provider Student in an Organized Health Care Education/Training Program
DX: E11.22 Type 2 diabetes mellitus with diabetic chronic kidney disease (principal); N18.32 Chronic kidney disease, stage 3b
CPT/HCPCS: 36415; 80051; 81001; 81003; 82306; 82310; 82565; 82570; 83036; 83970; 84100; 84156; 84520; 85025

== ENCOUNTER 2024-03-24 13:52 | Outpatient (REF) | payer MEDICARE, MEDICAID, SELFPAY ==
--- NOTE | ~2024-03-24 | MM_ITS ---
EXAMINATION: MM DIAGNOSTIC DIGITAL BREAST TOMOSYNTHESIS, RIGHT CLINICAL INFORMATION: Six-month follow-up for probably benign calcifications in the lateral inferior right breast, posterior one third. 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 COMPARISON: Mammography: 08/14/2023, 06/24/2023 (BI-RADS 0), 06/16/2022, 05/29/2021, 05/22/2020. TECHNIQUE: Digital breast tomosynthesis is performed in the following views: 2-D spot magnification right CC and ML views x2. FINDINGS: The breasts are heterogeneously dense, which may obscure small masses (ACR BI-RADS breast composition Category c). No significant interval change in subtle calcifications in the lateral inferior right breast, posterior one third, with no aggressive changes. These remain probably benign, and additional six-month interval follow-up recommended to assess for continued stability when the patient is due for bilateral screening. No new suspicious findings seen. Post therapeutic changes again evident. MM/MM tomosynthesis diagnostic RT IMPRESSION: -There are no findings suspicious for malignancy right breast. -Stable grouped calcifications in the lateral inferior right breast, posterior one third, with no aggressive changes. These remain probably benign, and six-month interval follow-up magnification views are recommended when the patient is due for bilateral screening. ASSESSMENT: BI-RADS BI-RADS 3 - Probably benign finding(s) - 6 month follow-up suggested RECOMMENDATION: 6 Month F/U Results were provided to the patient at time of visit by the technologist. This patient's information was entered into a reminder system with a target due date for their next mammogram. Electronically signed by: Molina Singh MD 03/24/2024 02:39 PM EDT
--- NOTE | ~2024-03-24 | MM_ITS ---
EXAMINATION: BONE DENSITOMETRY CLINICAL INDICATION: Post menopausal. Encounter for screening for osteoporosis. COMPARISON: Previous BD dated 01/31/2022 and baseline BD dated 12/17/2007. TECHNIQUE: Using a [employer] DXA System (software version: 13.1) manufactured by [employer], dual-energy x-ray absorptiometry was performed of the lumbar spine and left hip. The images are of good technical quality. Summary results are attached. FINDINGS: AP SPINE L1-L4 (excluding L3): The data of L1-L4 has been changed to exclude the L3 vertebral body, because at this level may cause overestimation of lumbar spine density. Current: BMD 0.996 g/cm2, Z-score -0.7, T-score -1.5, osteopenia, 2.3% increase from previous, 1.4% increase from baseline (<5% change is not significant). Prior: BMD 0.974 g/cm2. Baseline: BMD 0.982 g/cm2. LEFT FEMUR, NECK: Current: BMD 0.936 g/cm2, Z-score 0.4, T-score -0.7, normal. Prior: BMD 0.939 g/cm2. Baseline: BMD 0.912 g/cm2. LEFT FEMUR, TOTAL: Current: BMD 1.037 g/cm2, Z-score 1.1, T-score 0.2, normal, 4.0% increase from previous, 8.1% increase from baseline (<5% change is not significant). Prior: BMD 0.997 g/cm2. Baseline: BMD 0.959 g/cm2. IDENTIFIED RISK FACTORS: Rheumatoid arthritis. Renal disease. Thiazide. Menopause HISTORY OF FRACTURE: None listed. MEDICATIONS: None listed. MM/XR DEXA axial skeleton IMPRESSION: 1. DIAGNOSIS: Osteopenia based on the lowest T-score value of -1.5 in the lumbar spine applying World Health Organization criteria. 2. 10-YEAR FRACTURE RISK PREDICTION, FRAX: Major osteoporotic fracture (clinical spine, forearm, hip or shoulder) 5.7%. Hip fracture 0.6%. 3. Treatment Recommendations: NOF guidelines recommend consideration for treatment in postmenopausal women and men age 50 and older presenting with the following: -A hip or vertebral (clinical or morphometric) fracture. -T-score less than or equal to -2.5 at the femoral neck or spine after appropriate evaluation to exclude secondary causes. -Low bone mass at the hip or spine and a 10-year fracture probability by FRAX of greater than or equal to 3% for hip fracture or greater than or equal to 20% for major osteoporotic fracture based on the [place] adapted WHO algorithm. 4. Other Recommendations: All treatment decisions require clinical judgment and consideration of individual patient factors, including patient preferences, comorbidities, previous drug use, risk factors not captured in the FRAX model (e.g. frailty, falls, vitamin D deficiency, increased bone turnover, interval significant decline in bone density) and possible under or overestimation of fracture risk by FRAX. Additional medical evaluation for secondary cause of low bone mineral density may be appropriate. FUTURE SCAN RECOMMENDATION: People with diagnosed cases of osteoporosis or at high risk for fracture should have regular bone mineral density tests. For patients eligible for Medicare, routine testing is allowed once every 2 years. The testing frequency can be increased to one year for patients who have rapidly progressing disease, those who are receiving or discontinuing medical therapy to restore bone mass, or have additional risk factors. Electronically signed by: Virginia Cantu MD 03/25/2024 12:22 PM EDT [facility]
== END 2024-03-24 13:53 | disposition home or self-care (01) ==
LOC: HO.MAMMO 13:52
PROVIDERS: PCP Student in an Organized Health Care Education/Training Program; Visit Provider Student in an Organized Health Care Education/Training Program
DX: R92.1 Mammographic calcification found on diagnostic imaging of breast (principal); Z78.0 Asymptomatic menopausal state
CPT/HCPCS: 77061; 77065; 77080

== ENCOUNTER → 2024-03-24 14:30 | Outpatient (BNV) | payer MEDICARE, SELFPAY | PROVIDERS: PCP Student in an Organized Health Care Education/Training Program; Visit Provider Radiology Diagnostic Radiology | DX: R92.1 Mammographic calcification found on diagnostic imaging of breast (principal) | CPT/HCPCS: 77065; G0279 ==

== ENCOUNTER 2024-04-04 10:43 | Outpatient (REF) | payer MEDICARE, SELFPAY ==
[2024-04-04 13:00] LABS: MANUAL DIFF FLAG NO
[2024-04-04 13:30] LABS: Basophils Percent Auto 0.4 % (0-2); Eosinophils Absolute Auto 0.1 X10*3/uL (0.0-0.4); Eosinophils Percent Auto 1.8 % (0-4); Hematocrit 40.3 % (37.0-47.0); Hemoglobin 13.1 g/dl (12.0-16.0); Imm Gran Abs Auto 0.03 X10*3/uL (0.00-0.03); Imm Gran Pct Auto 0.4 % (0.0-0.4); Lymphocytes Absolute Auto 2.1 X10*3/uL (1.2-4.9); Lymphocytes Percent Auto 27.1 % (20-40); Mean Corpuscular HGB Conc 32.5 g/dl (31.0-35.0); Mean Corpuscular Hemoglobin 29.2 pg (27.0-33.0); Mean Corpuscular Volume 89.8 fL (80.0-98.0); Mean Platelet Volume 9.9 fL (9.4-12.3); Monocytes Absolute Auto 0.6 X10*3/uL (0.1-1.2); Monocytes Percent Auto 7.8 % (2-11); Neutrophils Absolute Auto 4.8 x10*3/uL (2.0-8.3); Neutrophils Percent Auto 62.5 % (45-73); Platelet Count 283 X10*3/uL (160-400); Red Blood Count 4.49 X10*6/uL (4.20-5.50); Red Cell Distribution Width 14.8 % (11.0-16.0); White Blood Count 7.7 X10*3/uL (4.8-10.8)
[2024-04-04 13:32] LABS: Estimated Average Glucose 148 mg/dL; Hemoglobin A1C 179.7944 umol/L; Hemoglobin A1c % 6.8 % (<6.0); Total Hemoglobin (HGBA1C) 3530.0245 umol/L
[2024-04-04 13:44] LABS: Rheumatoid Factor < 13.0 IU/mL (<15.0)
[2024-04-04 13:47] LABS: Alanine Aminotransferase 30 U/L (0-31); Albumin Level 4.1 g/dL (3.5-5.0); Alkaline Phosphatase 111 U/L (39-117); Anion Gap 12 (12-20); Aspartate Amino Transferase 35 U/L (5-31); Bilirubin Total 0.3 mg/dL (0.0-1.0); Blood Urea Nitrogen 26 mg/dL (9-16); C Reactive Protein 1.07 mg/dL (< or = 0.50); Calcium 9.6 mg/dL (8.4-10.2); Carbon Dioxide 21 mmol/L (22-29); Chloride 111 mmol/L (96-108); Cholesterol 119 mg/dL (<200); Estimated Glomerular Filt Rate 47; Glucose Random 130 mg/dL (60-115); HDL Cholesterol 34 mg/dL (>40); LDL Cholesterol Calculated 54 mg/dL (<100); Potassium 4.5 mmol/L (3.3-5.1); Sodium 139 mmol/L (135-145); Total Protein 7.1 g/dL (6.5-8.0); Triglycerides 156 mg/dL (<150); Uric Acid 3.3 mg/dL (2.4-5.7)
[2024-04-04 13:48] LABS: Alanine Aminotransferase 29 U/L (0-31); Albumin Level 4.1 g/dL (3.5-5.0); Alkaline Phosphatase 112 U/L (39-117); Anion Gap 13 (12-20); Aspartate Amino Transferase 25 U/L (5-31); Bilirubin Total 0.3 mg/dL (0.0-1.0); Blood Urea Nitrogen 27 mg/dL (9-16); Calcium 9.7 mg/dL (8.4-10.2); Carbon Dioxide 20 mmol/L (22-29); Chloride 112 mmol/L (96-108); Estimated Glomerular Filt Rate 48; Glucose Random 129 mg/dL (60-115); Potassium 4.7 mmol/L (3.3-5.1); Sodium 140 mmol/L (135-145); Total Protein 7.1 g/dL (6.5-8.0)
[2024-04-04 14:06] LABS: Erythrocyte Sedimentation Rate 14 MM/HR (0-20)
[2024-04-04 14:13] LABS: Folate 10.2 ng/mL (> or = 4.0); Vitamin B12 383 pg/mL (200-900)
[2024-04-04 17:56] LABS: CT PCR NOT DETECTED (Not Detect.); NG PCR NOT DETECTED (Not Detect.)
[2024-04-05 19:53] LABS: Cyclic Citrullinated Peptide 19 UNITS
== END 2024-04-04 10:44 | disposition home or self-care (01) ==
LOC: HO.HHCL 10:43
PROVIDERS: Student in an Organized Health Care Education/Training Program; Visit Provider Student in an Organized Health Care Education/Training Program
DX: M17.11 Unilateral primary osteoarthritis, right knee (principal); Z00.00 Encounter for general adult medical examination without abnormal findings; N18.32 Chronic kidney disease, stage 3b; E11.22 Type 2 diabetes mellitus with diabetic chronic kidney disease; M19.042 Primary osteoarthritis, left hand; M19.041 Primary osteoarthritis, right hand; M1A.39X0 Chronic gout due to renal impairment, multiple sites, without tophus (tophi)
CPT/HCPCS: 36415; 80053; 80061; 82550; 82607; 82746; 83036; 84550; 85025; 85652; 86140; 86200; 86431; 87491; 87591

== ENCOUNTER 2024-04-18 12:06 | Outpatient (AMB) | payer MEDICARE, SELFPAY ==
[2024-04-18 12:16] VITALS: BP 110/70; PULSE 76; O2SAT 94; BMI 33.0
--- NOTE | 2024-04-18 12:16 | A.OFFVIS_ITS ---
Vital Signs 04/18/24 12:16 Height 5 ft 5 in Weight 198 lb 6.656 oz BMI 33.0 BP 110/70 Blood Pressure Location Lt brachial Position Sitting Pulse 76 Pulse Source Pulse Oximeter Pulse Oximetry (%) 94 Oxygen Delivery Method Room Air Intake Visit Reasons: copd Intake Note: pt is here for follow up and feels good. Neurology Epilepsy Physician Required: No Allergies latex [LATEX] Allergy (Intermediate, Verified 04/18/24 12:31) BLISTERS abatacept [From Orencia] Allergy (Unknown, Verified 04/18/24 12:31) Itching adalimumab [From Humira] Allergy (Verified 04/18/24 12:31) dizziness aspirin Adverse Reaction (Intermediate, Verified 04/18/24 12:31) abdominal pain Medication List - Last Reconciled 04/18/24 by Krystyna Jay MD albuterol sulfate 2.5 mg inhalation Q4H PRN albuterol sulfate 90 mcg/actuation 2 puffs inhalation Q4H PRN allopurinol 300 mg PO DAILY 90 days atorvastatin 20 mg PO DAILY azelastine 1 spray intranasal BID PRN blood sugar diagnostic (FreeStyle Lite Strips) As directed citalopram 40 mg PO DAILY colchicine 0.6 mg PO DAILY PRN dapagliflozin propanediol (Farxiga) 5 mg PO DAILY dexlansoprazole 60 mg PO DAILY ferrous gluconate 324 mg PO Q48H gabapentin 300 mg PO TID 90 days hydrochlorothiazide 12.5 mg PO DAILY loratadine (Allergy Relief (loratadine)) 10 mg PO DAILY melatonin 10 mg PO BEDTIME PRN montelukast 10 mg PO BEDTIME semaglutide (Ozempic) 1 mg subcut QWEEK simvastatin 20 mg PO BEDTIME umeclidinium-vilanterol 62.5-25 mcg/actuation (Anoro Ellipta) 1 ea inhalation DAILY zolpidem 5 mg PO BEDTIME PRN HPI HPI copd: Details: Inocencia is 73 years old very pleasant female, nonsmoker, has history of mild COPD. She uses Anoro Ellipta once a day and has not needed to use the rescue inhaler except for a few times during the year. She does have intermittent nasal congestion secondary to allergic rhinitis and Azelastin nasal spray b.i.d. p.r.n. keeps it under control. She is coming to see me after 1 year and desires to just see her PCP . And see me only if symptoms get any worse. [facility] Medical History Back pain Uncontrolled type 2 diabetes mellitus with hyperglycemia Chronic lung disease Acute and chronic respiratory failure with hypoxia HTN (hypertension), benign Smoker History of Helicobacter pylori infection History of smoking at least 1 pack per day for at least 30 years Hypoxemia Pneumonia Osteoarthritis of both feet CKD (chronic kidney disease), stage III Lymphedema COVID-19 vaccine administered Hx of cardiac murmur Depression Anemia Hx of osteopenia Hx of gout Diabetes Elevated cholesterol HTN (hypertension) COPD (chronic obstructive pulmonary disease) GERD (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 reflux disease) 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 Seropositive rheumatoid arthritis Asthma History of right breast cancer Surgical History Hx of hand surgery H/O cystoscopy Hx of thumb surgery H/O colonoscopy H/O local excision of skin lesion History of bilateral carpal tunnel release S/P lumpectomy, right breast History of esophagogastroduodenoscopy (EGD) Family History Father Throat cancer Mother Asthma Osteoarthritis Sister Breast cancer Social History Household Members: None Housing: House Do you presently have visiting nurse or other home services: No Unable to assess alcohol history related to: Unknown Alcohol intake: never Patient Tobacco Use Status: Former Tobacco user Tobacco use type: Cigarette e-Cigarette/Vaping Use: Never Used service: No Current occupational status: retired 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 Female Reproductive History Menstrual Age of Menarche: 14 Review of Systems Const All systems reviewed & are unremarkable except as noted in HPI and below Eyes Reports no additional complaints ENT Reports no additional complaints Card Denies chest pain, Denies irregular heart rhythm and Denies leg edema Resp Reports as per HPI GI Reports no additional complaints Reports no additional complaints Musc Reports no additional complaints Skin/Breast Reports system reviewed and no additional complaints, except as documented Neuro Reports no additional complaints Psych Reports no additional complaints Endo Reports no additional complaints Emilio/Lymph Reports no additional complaints Physical Exam Vital Signs: Last Vital Signs Pulse 76 04/18/24 12:16 BP 110/70 04/18/24 12:16 Pulse Ox 94 04/18/24 12:16 Oxygen Delivery Method Room Air 04/18/24 12:16 BMI result Body Mass Index 33.0 Const General: healthy appearing, comfortable, no acute distress, alert and awake Orientation/consciousness: patient oriented x3 HEENT Head: Yes normal to inspection General nose exam: No nasal polyps present and No nasal discharge present Face and sinus: Yes sinuses nontender Mouth: oropharynx normal Throat: Yes posterior oropharynx normal Eyes General: appearance normal, both eyes and all related structures Neck Neck: Yes normal visual inspection, Yes no lymphadenopathy, Yes trachea midline and Yes no JVD Thyroid: Thyroid normal Chest Chest palpation & inspection: normal inspection of the chest, normal palpation of entire chest wall and no tenderness Resp Other: Percussion note is resonant, breath sounds are only slightly distant. She has no audible wheezing or crepitations Cardio Palpation: normal PMI Rate: regular rate Rhythm: regular rhythm Heart sounds: no gallops and no murmurs Peripheral pulses: Peripheral pulses 2+ throughout GI Palpation (GI): Soft to palpation, nontender, No hepatosplenomegaly present and no masses Auscultation: normal bowel sounds Back/Spine/Pelvis Thoracic/Lumbar Spine: thoracic and lumbar spine normal to inspection Skin General skin exam: no rashes or lesions noted Neuro General: patient oriented x3 and no focal motor deficits Cranial nerves: Yes CN's II-XII intact bilaterally Extrem General: Yes normal to inspection, Yes no clubbing, cyanosis or edema and Yes no calf tenderness Psych Appearance: grossly normal and well kempt Speech and movement: Normal speech and movement present Assessment & Plan Assessment & Plan (1) COPD (chronic obstructive pulmonary disease): Comment: She has only mild degree of COPD, Remains well controlled with use of Anoro Ellipta once a day. She needs to use albuterol only once in a while. Code(s): J44.9 - Chronic obstructive pulmonary disease, unspecified Category: Medical Plan: Continue the same medical regimen. Continue to follow-up with PCP . And does not have to see me unless symptoms get a worse. (2) History of smoking at least 1 pack per day for at least 30 years: Comment: History of smoking 1 pack a day for 30 years but quit more than 20 years ago. Code(s): Z87.89 - Personal history of nicotine dependence Category: Social Hx Plan: Does not need any treatment for this issue. She has no inclination to go back to smoking. Coding Level of Care Code Est Pt Level 3 (56138) Diagnoses COPD (chronic obstructive pulmonary disease) J44.9 History of smoking at least 1 pack per day for at least 30 years Z87.842
== END 2024-04-18 12:34 | disposition home or self-care (01) ==
PROVIDERS: PCP Student in an Organized Health Care Education/Training Program; Visit Provider Internal Medicine
DX: J44.9 Chronic obstructive pulmonary disease, unspecified (principal); Z87.891 Personal history of nicotine dependence
CPT/HCPCS: 99213

== ENCOUNTER → 2024-04-18 12:06 | Outpatient (BNVA) | payer MEDICARE, SELFPAY | PROVIDERS: PCP Student in an Organized Health Care Education/Training Program; Visit Provider Internal Medicine | DX: J44.9 Chronic obstructive pulmonary disease, unspecified (principal); Z87.891 Personal history of nicotine dependence; Z79.899 Other long term (current) drug therapy | CPT/HCPCS: 99212 ==

== ENCOUNTER 2024-05-26 13:26 | Outpatient (AMB) | payer MEDICARE, SELFPAY ==
[2024-05-26 13:33] VITALS: BP 141/64; PULSE 92; BMI 33.1
--- NOTE | 2024-05-26 13:33 | A.OFFVIS_ITS ---
Vital Signs 05/26/24 13:33 Height 5 ft 5 in Weight 199 lb BMI 33.1 BP 141/64 H Blood Pressure Location Lt brachial Position Sitting Pulse 92 Intake Visit Reasons: yearly breast exam Intake Note: Patient is seen in office for yearly breast exam. Pt c/o: no concerns. No changes in medical hx since last visit. 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: No Accompanied by: Self / Same As Patient Allergies latex [LATEX] Allergy (Intermediate, Verified 05/26/24 13:34) BLISTERS abatacept [From Orencia] Allergy (Unknown, Verified 05/26/24 13:34) Itching adalimumab [From Humira] Allergy (Verified 05/26/24 13:34) dizziness aspirin Adverse Reaction (Intermediate, Verified 05/26/24 13:34) abdominal pain Medication List - Last Reconciled 05/26/24 by Neal Peters MD albuterol sulfate 2.5 mg inhalation Q4H PRN albuterol sulfate 90 mcg/actuation 2 puffs inhalation Q4H PRN allopurinol 300 mg PO DAILY 90 days atorvastatin 20 mg PO DAILY azelastine 1 spray intranasal BID PRN blood sugar diagnostic (FreeStyle Lite Strips) As directed citalopram 40 mg PO DAILY colchicine 0.6 mg PO DAILY PRN dapagliflozin propanediol (Farxiga) 5 mg PO DAILY dexlansoprazole 60 mg PO DAILY ferrous gluconate 324 mg PO Q48H gabapentin 300 mg PO TID 90 days hydrochlorothiazide 12.5 mg PO DAILY loratadine (Allergy Relief (loratadine)) 10 mg PO DAILY melatonin 10 mg PO BEDTIME PRN montelukast 10 mg PO BEDTIME semaglutide (Ozempic) 1 mg subcut QWEEK simvastatin 20 mg PO BEDTIME umeclidinium-vilanterol 62.5-25 mcg/actuation (Anoro Ellipta) 1 ea inhalation DAILY zolpidem 5 mg PO BEDTIME PRN HPI Comments Details: 73-year-old female patient returning for follow-up breast examination. She is a former patient of Dr. Melton diagnosed with right breast infiltrating ductal carcinoma, status post right breast lumpectomy with sentinel node biopsy in February 2004. Pathology revealed infiltrating ductal carcinoma, 0.7 cm, grade 1, ER/TN positive, HER2 Petros negative, 1 sentinel node negative for metastatic disease, stage I. This followed by radiation therapy and Arimidex which she is completed. She denies any ongoing breast symptoms at this time. An annual screening mammogram and subsequent follow-up images performed on 06/24/2023 and 08/14/2023 revealed subtle tight groupings of calcifications in the slightly lower medial right breast posterior 1/3 probably in retrospect seen on the 2019 exam. A six-month follow-up study performed on 03/24/2024 showed no significant change in the grouping of calcifications. Six-month follow-up diagnostic mammogram is scheduled for 06/28/2024 (bilateral mammogram). [facility] Medical History Back pain Uncontrolled type 2 diabetes mellitus with hyperglycemia Chronic lung disease Acute and chronic respiratory failure with hypoxia HTN (hypertension), benign Smoker History of Helicobacter pylori infection History of smoking at least 1 pack per day for at least 30 years Hypoxemia Pneumonia Osteoarthritis of both feet CKD (chronic kidney disease), stage III Lymphedema COVID-19 vaccine administered Hx of cardiac murmur Depression Anemia Hx of osteopenia Hx of gout Diabetes Elevated cholesterol HTN (hypertension) COPD (chronic obstructive pulmonary disease) GERD (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 reflux disease) 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 Seropositive rheumatoid arthritis Asthma History of right breast cancer Surgical History Hx of hand surgery H/O cystoscopy Hx of thumb surgery H/O colonoscopy H/O local excision of skin lesion History of bilateral carpal tunnel release S/P lumpectomy, right breast History of esophagogastroduodenoscopy (EGD) Family History Father Throat cancer Mother Asthma Osteoarthritis Sister Breast cancer Social History Household Members: None Housing: House Do you presently have visiting nurse or other home services: No Unable to assess alcohol history related to: Unknown Alcohol intake: never Patient Tobacco Use Status: Former Tobacco user Tobacco use type: Cigarette e-Cigarette/Vaping Use: Never Used service: No Current occupational status: retired 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 Female Reproductive History Menstrual Age of Menarche: 14 Review of Systems Const All systems reviewed & are unremarkable except as noted in HPI and below Denies chills, Denies fever(s) and Denies night sweats Card Denies chest pain, Denies irregular heart rhythm, Denies palpitations and Denies dyspnea Resp Denies cough, Denies hemoptysis, Denies dyspnea and Denies wheezing Denies nipple discharge Skin/Breast Reports breast skin changes, Reports breast pain, Denies breast mass, Denies change in breast shape, Denies change in pigmentation and Denies nipple discharge Endo Denies palpitations Emilio/Lymph Denies lymphadenopathy Aller/Immun Denies wheezing Physical Exam Vital Signs: Last Vital Signs Pulse 92 05/26/24 13:33 BP 141/64 H 05/26/24 13:33 BMI result Body Mass Index 33.1 Const General: no acute distress and well developed Nutritional Appearance: well nourished Orientation/consciousness: patient oriented x3 Limitations: no limitations HEENT Head: Yes normal to inspection, Yes normocephalic and Yes atraumatic Ears: hearing grossly normal bilaterally Neck Neck: Yes no lymphadenopathy, Yes trachea midline, Yes supple and Yes no JVD Chest Other: Right breast: Lymphedema within the breast tissue, post radiation change. Well-healed incision in the upper outer quadrant and axilla with minimal volume loss. No other skin change, nipple retraction, nipple discharge, palpable mass, or enlarged lymph node. Left breast: No new skin change, nipple discharge, nipple retraction, palpable mass, or enlarged lymph nodes. GI Inspection: Yes normal to inspection Skin General skin exam: no rashes or lesions noted Neuro General: patient oriented x3 Extrem General: Yes full ROM and Yes no clubbing, cyanosis or edema Assessment & Plan Assessment & Plan (1) History of breast cancer: Code(s): Z85.3 - Personal history of malignant neoplasm of breast Category: Medical (2) Abnormal mammogram of right breast: Code(s): R92.8 - Other abnormal and inconclusive findings on diagnostic imaging of breast Category: Medical (3) Invasive ductal carcinoma of right breast: Code(s): C50.911 - Malignant neoplasm of unspecified site of right female breast Category: Medical Plan 73-year-old female patient with a prior history of right breast lumpectomy with needle localization, sentinel node biopsy for infiltrating ductal carcinoma. Patient's most recent mammogram of 03/24/2024 revealed a stable grouping of calcifications in the inferior lateral right breast for which six-month follow- up bilateral diagnostic mammogram is recommended. Examination today revealed no suspicious changes in either breast with mainly postoperative changes in the right breast. She is scheduled for the follow-up mammogram on 06/28/2024. I recommended a follow-up examination in 1 year, sooner p.r.n.. Orders: Orders MM diagnostic mammo BI Today R92.8 - Other abnormal and inconclusive findings on diagnostic imaging of breast, Z85.3 - Personal history of malignant neoplasm of breast Coding Level of Care Code Est Pt Level 3 (64038) Diagnoses History of breast cancer Z85.3 Abnormal mammogram of right breast R92.8 Invasive ductal carcinoma of right breast C50.911
== END 2024-05-26 13:44 | disposition home or self-care (01) ==
PROVIDERS: PCP Student in an Organized Health Care Education/Training Program; Visit Provider Surgery
DX: Z85.3 Personal history of malignant neoplasm of breast (principal); R92.8 Other abnormal and inconclusive findings on diagnostic imaging of breast; C50.911 Malignant neoplasm of unspecified site of right female breast
CPT/HCPCS: 99213

== ENCOUNTER → 2024-05-26 13:26 | Outpatient (BNVA) | payer MEDICARE, SELFPAY | PROVIDERS: PCP Student in an Organized Health Care Education/Training Program; Visit Provider Surgery | DX: R92.8 Other abnormal and inconclusive findings on diagnostic imaging of breast (principal); Z85.3 Personal history of malignant neoplasm of breast | CPT/HCPCS: 99212 ==

== ENCOUNTER 2024-06-28 11:38 | Outpatient (REF) | payer MEDICARE, SELFPAY ==
--- NOTE | ~2024-06-28 | MM_ITS ---
EXAMINATION: MM DIAGNOSTIC DIGITAL BREAST TOMOSYNTHESIS, BILATERAL CLINICAL INFORMATION: 1 year follow-up for grouped calcifications in the lower inner right breast posterior depth. History of right breast cancer status post lumpectomy. COMPARISON: Mammography: Comparison is made with relevant prior exams. TECHNIQUE: Digital breast mammography with tomosynthesis is performed in both the craniocaudal and mediolateral oblique views along with computer-aided detection (CAD). FINDINGS: There are scattered areas of fibroglandular density (ACR BI-RADS breast composition Category b). The previously seen punctate grouped calcifications in the lower inner right breast posterior depth are not significantly changed on magnification views dating back for one year. No suspicious masses or other abnormal findings. Results are provided to the patient at time of visit by the technologist. MM/MM tomosynthesis diagnostic BI IMPRESSION: Right: Grouped calcifications in the lower inner right breast posterior depth not significant change for one year. Recommend follow-up diagnostic mammogram with magnification views in one year when the patient is due for bilateral mammography. Left: Negative. ASSESSMENT: BI-RADS BI-RADS 3 - Probably benign finding(s) - 12 month follow-up suggested RECOMMENDATION: 12 month diagnostic follow up This patient's information was entered into a reminder system with a target due date for their next mammogram. Electronically signed by: Yuliya Khalil DO 06/28/2024 01:59 PM [facility]
--- OUTSIDE RECORDS SUMMARY | 2024-06-28 12:38 | XMS_ITS | Clinical Summary ---
Author Organization 175 [facility] Address [address] [place] [address] Phone Care Team Providers Care Central Office Mechanic Name Role Phone Lanny Ewing MD Primary Care Pro vider Allergies Active Allergy Reactions Criticality Noted Date Comments Aspirin 02/22/2024 Medications Medication Sig Dispensed Refills Start Date End Date Status gabapentin (NEURONTIN) 400 mg capsule Take 1 Capsule by mouth 3 times daily. Active ferrous gluconate (FERGON) 324 mg (38 mg iron) tablet Take 1 Tablet by mouth daily (with breakfast). Active febuxostat (ULORIC) 80 mg tablet Take 1 tablet (80 mg total) by mouth 1 (one) time each day. Active dexlansoprazole (DEXILANT) [address] capsule Take 1 capsule (60 mg total) by mouth 1 (one) time each day. Active dapagliflozin propanediol (FARXIGA) 5 mg tablet Take 5 mg by mouth daily. Active colchicine (MITIGARE) 0.6 mg capsule capsule Take 0.6 mg by mouth daily. Active citalopram (CeleXA) 20 mg tablet Take 1 tablet (20 mg total) by mouth 1 (one) time each day. Active atorvastatin (LIPITOR) 20 mg tablet Take 1 tablet (20 mg total) by mouth 1 (one) time each day. Active azelastine (ASTELIN) 137 mcg (0.1 %) nasal spray by Nasal route. Active Active Problems Problem Noted Date Diagnosed Date Carpal tunnel syndrome 02/22/2024 Chronic gouty arthritis 02/22/2024 COPD (chronic obstructive pulmonary disease) Dermatitis 02/22/2024 Essential hypertension 02/22/2024 GERD (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 reflux disease) Hyperlipidemia 02/22/2024 Hypertensive retinopathy 02/22/2024 Invasive ductal carcinoma of right breast 2023 Microscopic hematuria 02/22/2024 Moderate persistent asthma with (acute) exacerba tion 02/22/2024 Obesity 02/22/2024 Osteoarthritis of elbow 02/22/2024 Osteopenia 02/22/2024 Proteinuria 02/22/2024 Recurrent major depressive episodes, mild 2023 Seropositive rheumatoid arthritis 02/22/2024 Stage 3 chronic kidney disease 02/22/2024 Type 2 diabetes mellitus wit h stage 3 chronic kidney disease, without long-term current use of insulin 02/22/2024 Social History Tobacco Use Types Packs/Day Years Used Date Smoking Tobacco: Never Assessed Sex and Gender Information Value Date Recorded Sex Assigned at Not on file Gender Identity Not on file Sexual Orientation Not on file Job Start Date Occupation Industry Not on file Not on file Not on file Plan of Treatment Upcoming Encounters Date Type Department Care Team ([facility] Contact Info) Description 08/25/2024 1:15 PM EDT Consult Orthopedic Surgery - [place] [id number] [phone] Josafat Baker, DPM [address] [id number] Health Maintenance Due Date Last Done Comments Breast Cancer Screening 1950 Diabetes: Annual GFR (Glomer ular Filtration Rate) 1950 COVID-19 Vaccine (#1) 1957 Pneumococcal Vaccine: 65+ Ye ars (1 of 2 - PCV) 1958 Diabetes: Annual Foot Exam 1962 Diabetes: Annual Retina Eye Exam 1962 DTaP,Tdap,and Td Vaccines (1 - Tdap) 1971 Zoster Vaccines (1 of 2) 1971 RSV Immunization Patients 60 + Years Old (1 - Risk 60-74 years 1-dose series) 2012 Cholesterol Screening (Lipid Panel) 01/20/2024 Colorectal Cancer Screening: Colonoscopy 01/20/2024 Depression Screening 01/20/2024 Falls Risk Assessment 01/20/2024 Hepatitis C Screening 01/20/2024 Medicare Annual Wellness Visit 01/20/2024 Osteoporosis Screening (Bone Density Screening) 01/20/2024 Social Influencers of Health Screening 01/20/2024 Influenza Vaccine (#1) 2024 Diabetes: Annual Urine Albumin-Creatinine Ratio (uACR) 03/08/2024 Diabetes: Blood Sugar Contro l Test (HGBA1C) 03/08/2024 Hypertension/CHF/CAD Annual BMP Blood Test 03/08/2024 HIB Vaccines Aged Out No longer eligi ble based on patient's age to complete this topic HPV Vaccines Aged Out No longer eligi ble based on patient's age to complete this topic Hepatitis A Vaccines Aged Out No long er eligible based on patient's age to complete this topic Hepatitis B Vaccines Aged Out No long er eligible based on patient's age to complete this topic IPV Vaccines Aged Out No longer eligi ble based on patient's age to complete this topic MMR Vaccines Aged Out No longer eligi ble based on patient's age to complete this topic Meningococcal ACWY Vaccine Aged Out N o longer eligible based on patient's age to complete this topic RSV Immunization Patients Un tere 20 months Aged Out No longer eligible b ased on patient's age to complete this topic Varicella Vaccines Aged Out No longer eligible based on patient's age to complete this topic Care Teams Central Office Mechanic Relationship Specialty Start Date End Date Lanny Ewing MD [address] [place] [phone] PCP - General 10/23/23
--- OUTSIDE RECORDS SUMMARY | 2024-06-28 12:38 | XMS_ITS | Encounter Summary ---
Author Organization [facility] Address [address] [place] [address] Phone Care Team Providers Care Registered Respiratory Technician Name Role Phone Lanny Roach Primary Care Provid er Encounter Details Date Type Department Care Team (Late Contact Info) Description 09/03/2023 Documentation Only [facility] [address] [place] [address] Mae Olsen [address] [place] [address] Social History Tobacco Use Types Packs/Day Years Used Date Smoking Tobacco: Former Cigarettes Q uit: 05/25/2014 Alcohol Use Standard Drinks/Week Comments No 0 (1 standard drink = 0.6 oz pur e alcohol) Comments Unknown Sex and Gender Information Value Date Recorded Sex Assigned at Not on file Legal Sex Female 3:36 PM EST Gender Identity Not on file Sexual Orientation Not on file documented as of this encounter Plan of Treatment Upcoming Encounters Date Type Department Care Team (Late st Contact Info) Description 11/17/2024 1:30 PM EDT Office Visit [facility] [address] [place] [address] Tiara Barrientos MD [address] [place] [address] [place] [address] documented as of this encounter Visit Diagnoses Not on filedocumented in this encounter Care Teams Registered Respiratory Technician Relationship Specialty Start Date End Date Lanny Roach [address] [place] [address] PCP - General 03/10/24 documented as of this encounter
--- OUTSIDE RECORDS SUMMARY | 2024-06-28 12:38 | XMS_ITS | Encounter Summary ---
Author Organization [facility] Address [address] [place] [address] Phone Care Team Providers Care Switchboard Inspector Name Role Phone Lanny Roach Primary Care Provid er Encounter Details Date Type Department Care Team (Late Contact Info) Description 09/03/2023 Documentation Only [facility] [address] [place] [address] Mae Olsen [address] [place] [address] Social History Tobacco Use Types [...] Visit [facility] [address] [place] [address] Tiara Barrientos MD [address] [place] [address] [place] [address] documented as of this encounter Visit Diagnoses Not on filedocumented in this encounter Care Teams Switchboard Inspector Relationship Specialty Start Date End Date Lanny Roach [address] [place] [address] PCP - General 03/10/24 documented as of this encounter
--- OUTSIDE RECORDS SUMMARY | 2024-06-28 12:38 | XMS_ITS | Encounter Summary ---
Author Organization [facility] Address [address] [facility] [address] [place] [address] Phone Care Team Providers Care Medical Driver Name Role Phone Lanny Roach Primary Care Provid er Encounter Details Date Type Department Care Team (Late st Contact Info) Description 12/31/2021 Documentation Only [facility] [address] [place] [address] Gabino Donnelly MD [address] [facility] [place] [address] Social History Tobacco Use Types Packs/Day Years Used Date Smoking Tobacco: Former Cigarettes 0 05/25/1977 - 05/25/2013 Alcohol Use Standard Drinks/Week Comments No 0 [...] Visit [facility] [address] [place] [address] Tiara Barrientos MD [address] [facility] [place] [address] documented as of this encounter Visit Diagnoses Not on filedocumented in this encounter Care Teams Medical Driver Relationship Specialty Start Date End Date Lanny Roach [address] [place] [address] PCP - General 03/10/24 documented as of this encounter
--- OUTSIDE RECORDS SUMMARY | 2024-06-28 12:38 | XMS_ITS | Encounter Summary ---
Author Organization [facility] Address [address] [place] [address] Phone Care Team Providers Care Underground Bolting Machine Operator Name Role Phone Lanny Roach Primary Care Provid er Encounter Details Date Type Department Care Team (Late Contact Info) Description 09/03/2023 Documentation Only [facility] [address] [place] [address] Mae Olsen [address] [place] [address] Social History Tobacco Use Types [...] Visit [facility] [address] [place] [address] Tiara Barrientos MD [address] [place] [address] [place] [address] documented as of this encounter Visit Diagnoses Not on filedocumented in this encounter Care Teams Underground Bolting Machine Operator Relationship Specialty Start Date End Date Lanny Roach [address] [place] [address] PCP - General 03/10/24 documented as of this encounter
--- OUTSIDE RECORDS SUMMARY | 2024-06-28 12:38 | XMS_ITS | Encounter Summary ---
Author Organization [facility] Address [address] [place] [address] Phone Care Team Providers Care Tip Printer Name Role Phone Lanny Roach Primary Care Provid er Encounter Details Date Type Department Care Team (Late Contact Info) Description 09/03/2023 Documentation Only [facility] [address] [place] [address] Mae Olsen [address] [place] [address] Social History Tobacco Use Types [...] Visit [facility] [address] [place] [address] Tiara Barrientos MD [address] [place] [address] [place] [address] documented as of this encounter Visit Diagnoses Not on filedocumented in this encounter Care Teams Tip Printer Relationship Specialty Start Date End Date Lanny Roach [address] [place] [address] PCP - General 03/10/24 documented as of this encounter
--- OUTSIDE RECORDS SUMMARY | 2024-06-28 12:38 | XMS_ITS | Encounter Summary ---
Author Organization [facility] Address [address] [place] [address] Phone Care Team Providers Care Cable Braider Name Role Phone Lanny Roach Primary Care Provid er Encounter Details Date Type Department Care Team (Late Contact Info) Description 09/03/2023 Documentation Only [facility] [address] [place] [address] Mae Olsen [address] [place] [address] Social History Tobacco Use Types [...] Visit [facility] [address] [place] [address] Tiara Barrientos MD [address] [place] [address] [place] [address] documented as of this encounter Visit Diagnoses Not on filedocumented in this encounter Care Teams Cable Braider Relationship Specialty Start Date End Date Lanny Roach [address] [place] [address] PCP - General 03/10/24 documented as of this encounter
--- OUTSIDE RECORDS SUMMARY | 2024-06-28 12:38 | XMS_ITS | Encounter Summary ---
Author Organization [facility] Address [address] [place] [address] Phone Care Team Providers Care Director Of Compliance Name Role Phone Lanny Roach Primary Care Provid er Encounter Details Date Type Department Care Team (Late Contact Info) Description 09/03/2023 Documentation Only [facility] [address] [place] [address] Mae Olsen [address] [place] [address] Social History Tobacco Use Types [...] Visit [facility] [address] [place] [address] Tiara Barrientos MD [address] [place] [address] [place] [address] documented as of this encounter Visit Diagnoses Not on filedocumented in this encounter Care Teams Director Of Compliance Relationship Specialty Start Date End Date Lanny Roach [address] [place] [address] PCP - General 03/10/24 documented as of this encounter
--- OUTSIDE RECORDS SUMMARY | 2024-06-28 12:38 | XMS_ITS | Encounter Summary ---
Author Organization [facility] Address [address] [place] [address] Phone Care Team Providers Care Communications Writer Name Role Phone Lanny Roach Primary Care Provid er Encounter Details Date Type Department Care Team (Late Contact Info) Description 09/03/2023 Documentation Only [facility] [address] [place] [address] Mae Olsen [address] [place] [address] Social History Tobacco Use Types [...] Visit [facility] [address] [place] [address] Tiara Barrientos MD [address] [place] [address] [place] [address] documented as of this encounter Visit Diagnoses Not on filedocumented in this encounter Care Teams Communications Writer Relationship Specialty Start Date End Date Lanny Roach [address] [place] [address] PCP - General 03/10/24 documented as of this encounter
--- OUTSIDE RECORDS SUMMARY | 2024-06-28 12:38 | XMS_ITS | Encounter Summary ---
Author Organization [employer] Address [address] [facility] 7t [place] [address] Care Team Providers Care Cd Reactor Operator Name Role Phone Lanny Ewing MD Primary Care Pro vider Encounter Details Date Type Department Care Team (Late st Contact Info) Description 10/26/2023 Orders Only [facility] [address] [place] [address] Provider, MD Sherly Social History Tobacco Use Types Packs/Day Years Used Date Smoking Tobacco: Former Cigarettes Passive Smoke Exposure: Never Smokeless Tobacco: Never Comments:Started smoking 17 y of age ,stopped at her 60s ,smoked for 55 years ,stopped now 11 y ago, used to smoke 10 cig a day patient calc 27.5 Alcohol Use Standard Drinks/Week Comments Never 0 (1 standard drink = 0.6 oz pur e alcohol) Depression Answer Date Recorded Patient Health Questionnaire-9 Score 7 09/11/2023 Patient Health Questionnaire-9 Score 7 09/11/2023 Last PHQ-9: Questionnaire Data Not on file 0 09/11/2023 Housing Stability Answer Date Recorded What is your housing situation today? I have maryam baugh 07/20/[address] you li ve. Do you have problems with any of the following? Pests such as bugs, ants, or mice 07/20/2023 Food Insecurity Answer Date Recorded Within the past 12 months, y ou worried that your food would run out before you got money to buy more: Never True 07/20/2023 Within the past 12 months,th e food you bought just didn't last and you didn't have enough money to get more: Never True Transportation Answer Date Recorded In the past 12 months, has l ack of transportation kept you from medical appts, meetings, work or from getting things needed for daily living? Yes, it has kept me from medical appointments or getting medications. 07/20/2023 Utilities Answer Date Recorded In the past 12 months, has t he electric, gas, oil or water company threatened to shut off services in your home? No 07/20/2023 Depression Answer Date Recorded Patient Health Questionnaire-2 Score 0 09/11/2023 Comments Unknown Sex and Gender Information Value Date Recorded Sex Assigned at Female 03/24/2022 10:17 AM EDT Legal Sex Female 10:17 AM EDT Gender Identity Female 03/24/2022 10:17 AM EDT Sexual Orientation Straight 03/24/2022 10 :17 AM EDT documented as of this encounter Plan of Treatment Upcoming Encounters Date Type Department Care Team (Late st Contact Info) Description 09/19/2024 2:30 PM EDT Medication Management [facility] [address] [place], [place] [phone] documented as of this encounter Goals Goal Patient Goal Type Associated Problems Recent Progress Patient-Stated? Author Blood Pressure < 140/90 Blood Pressure 115/64(2023 2:32 PM EST) No Jessica Evans Hemoglobin A1c < 7 Result Component 6.8( 10:49 AM EST) No Jessica Evans documented as of this encounter Procedures Procedure Name Priority Date/Time Associated Diagnosis Comments COLONOSCOPY Routine 09/17/2018 1:13 PM EDT documented in this encounter Results * Hm Colonoscopy (09/17/2018 1:13 PM EDT) us Historical Provider HEALTH MAINTENANCE Final Result documented in this encounter Visit Diagnoses Not on filedocumented in this encounter Additional Health Concerns Assessment Noted Time PHQ-9 Depression Total Score: 7 09/11/19 24 2:05 PM EDT documented as of this encounter Care Teams Cd Reactor Operator Relationship Specialty Start Date End Date Lanny Ewing MD [address] [place] [address] PCP - General Internal Medicine 03/03/23 documented as of this encounter
--- OUTSIDE RECORDS SUMMARY | 2024-06-28 12:38 | XMS_ITS | Encounter Summary ---
Author Organization [facility] Address [address] [place] [address] Phone Care Team Providers Care Java Portal Developer Name Role Phone Lanny Roach Primary Care Provid er Encounter Details Date Type Department Care Team (Late Contact Info) Description 03/29/2024 Documentation Only [facility] [address] [place] [address] Mae Olsen [address] [place] [address] Social History Tobacco Use Types [...] Encounters Date Type Department Care Team (Late Contact Info) Description 11/17/2024 1:30 PM EDT Office Visit [facility] [address] [place] [address] Tiara Barrientos MD [address] [place] [address] [place] [address] documented as of this encounter Visit Diagnoses Not on filedocumented in this encounter Care Teams Java Portal Developer Relationship Specialty Start Date End Date Lanny Roach [address] [place] [address] PCP - General 03/10/24 documented as of this encounter
--- OUTSIDE RECORDS SUMMARY | 2024-06-28 12:38 | XMS_ITS | Encounter Summary ---
Author Organization [facility] Address [address] [place] [address] Phone Care Team Providers Care Engineer Exhauster Name Role Phone Lanny Roach Primary Care Provid er Encounter Details Date Type Department Care Team (Late Contact Info) Description 09/03/2023 Documentation Only [facility] [address] [place] [address] Mae Olsen [address] [place] [address] Social History Tobacco Use Types [...] Visit [facility] [address] [place] [address] Tiara Barrientos MD [address] [place] [address] [place] [address] documented as of this encounter Visit Diagnoses Not on filedocumented in this encounter Care Teams Engineer Exhauster Relationship Specialty Start Date End Date Lanny Roach [address] [place] [address] PCP - General 03/10/24 documented as of this encounter
--- OUTSIDE RECORDS SUMMARY | 2024-06-28 12:38 | XMS_ITS | Encounter Summary ---
Author Organization [facility] Address [address] [facility] [address] [place] [address] Phone Care Team Providers Care Airline Pilot Flight Instructor Name Role Phone Lanny Roach Primary Care Provid er Encounter Details Date Type Department Care Team (Late st Contact Info) Description 10/07/2022 Documentation Only [facility] [address] [place] [address] [place], [place] [address] [place] [address] Social History Tobacco Use Types [...] Visit [facility] [address] [place] [address] Tiara Barrientos MD [address] [place] [address] [place] [address] documented as of this encounter Visit Diagnoses Not on filedocumented in this encounter Care Teams Airline Pilot Flight Instructor Relationship Specialty Start Date End Date Lanny Roach [address] [place] [id number] PCP - General 03/10/24 documented as of this encounter
--- OUTSIDE RECORDS SUMMARY | 2024-06-28 12:38 | XMS_ITS | Encounter Summary ---
Author Organization [facility] Address [address] [place] [address] Phone Care Team Providers Care Quality Systems Manager Name Role Phone Lanny Roach Primary Care Provid er Encounter Details Date Type Department Care Team (Late Contact Info) Description 09/03/2023 Documentation Only [facility] [address] [place] [address] Mae Olsen [address] [place] [address] Social History Tobacco Use Types [...] Visit [facility] [address] [place] [address] Tiara Barrientos MD [address] [place] [address] [place] [address] documented as of this encounter Visit Diagnoses Not on filedocumented in this encounter Care Teams Quality Systems Manager Relationship Specialty Start Date End Date Lanny Roach [address] [place] [address] PCP - General 03/10/24 documented as of this encounter
--- OUTSIDE RECORDS SUMMARY | 2024-06-28 12:38 | XMS_ITS | Encounter Summary ---
Author Organization [facility] Address [address] [place] [address] Phone Care Team Providers Care Backshoe Person Name Role Phone Lanny Roach Primary Care Provid er Encounter Details Date Type Department Care Team (Late Contact Info) Description 09/03/2023 Documentation Only [facility] [address] [place] [address] Mae Olsen [address] [place] [address] Social History Tobacco Use Types [...] Visit [facility] [address] [place] [address] Tiara Barrientos MD [address] [place] [address] [place] [address] documented as of this encounter Visit Diagnoses Not on filedocumented in this encounter Care Teams Backshoe Person Relationship Specialty Start Date End Date Lanny Roach [address] [place] [address] PCP - General 03/10/24 documented as of this encounter
--- OUTSIDE RECORDS SUMMARY | 2024-06-28 12:38 | XMS_ITS | Encounter Summary ---
Author Organization [facility] Address [address] [place] [address] Phone Care Team Providers Care Berry Picker Name Role Phone Lanny Roach Primary Care Provid er Encounter Details Date Type Department Care Team (Late Contact Info) Description 09/03/2023 Documentation Only [facility] [address] [place] [address] Mae Olsen [address] [place] [address] Social History Tobacco Use Types [...] Visit [facility] [address] [place] [address] Tiara Barrientos MD [address] [place] [address] [place] [address] documented as of this encounter Visit Diagnoses Not on filedocumented in this encounter Care Teams Berry Picker Relationship Specialty Start Date End Date Lanny Roach [address] [place] [address] PCP - General 03/10/24 documented as of this encounter
--- OUTSIDE RECORDS SUMMARY | 2024-06-28 12:38 | XMS_ITS | Encounter Summary ---
Author Organization [facility] Address [address] [place] [address] Phone Care Team Providers Care Director Corporate Communications Name Role Phone Lanny Roach Primary Care Provid er Encounter Details Date Type Department Care Team (Late Contact Info) Description 03/22/2024 Documentation Only [facility] [address] [place] [address] Mae Olsen [address] [place] [address] Social History Tobacco Use Types [...] Visit [facility] [address] [place] [address] Tiara Barrientos MD [address] [place] [address] [place] [address] documented as of this encounter Visit Diagnoses Not on filedocumented in this encounter Care Teams Director Corporate Communications Relationship Specialty Start Date End Date Lanny Roach [address] [place] [address] PCP - General 03/10/24 documented as of this encounter
--- OUTSIDE RECORDS SUMMARY | 2024-06-28 12:38 | XMS_ITS | Encounter Summary ---
Author Organization [employer] Address [address] [place] [address] 7t [place] [address] Care Team Providers Care Rate Quoting Operator Name Role Phone Lanny Ewing MD Primary Care Pro vider Reason for Visit * Reason Onset Date Comments Hospital Follow-up 07/20/2023 Encounter Details Date Type Department Care Team ([facility] st Contact Info) Description 07/20/2023 Telephone [facility] [address] [place], [place] [phone] Lanny Ewing MD [address] [place], [place] [phone] Hospital Follow-up Social History Tobacco Use Types Packs/Day Years Used Date Smoking Tobacco: Never Passive Smoke Exposure: Never Smokeless Tobacco: Never Alcohol Use Standard Drinks/Week Comments Never 0 (1 standard drink = 0.6 oz pur e alcohol) Housing Stability Answer Date Recorded What is your housing situation today? I have maryam sing 07/20/[address] you li [...] Date Recorded Patient Health Questionnaire-2 Score 0 11/06/2022 Comments Unknown Sex and Gender Information Value Date Recorded Sex Assigned at Female 03/24/2022 10:17 AM EDT Legal Sex Female 10:17 AM EDT Gender Identity Female 03/24/2022 10:17 AM EDT Sexual Orientation Straight 03/24/2022 10 :17 AM EDT documented as of this encounter Miscellaneous Notes * Telephone Encounter - Kandi Viveros - 07/20/2023 10:39 AM EST Tc from pt requesting a HDF appt. Hospital: [facility] Date of admission: 06/14/2023 Discharge date: 06/17/2023 Diagnosed: Trouble Breathing/Asthma documented in this encounter Plan of Treatment Upcoming Encounters Date Type Department Care Team (Late st Contact Info) Description 09/19/2024 2:30 PM EDT Medication Management [facility] [address] [place] [address] documented as of this encounter Visit Diagnoses Not on filedocumented in this encounter Care Teams Rate Quoting Operator Relationship Specialty Start Date End Date Lanny Ewing MD [address] [place] [address] PCP - General Internal Medicine 03/03/23 documented as of this encounter
--- OUTSIDE RECORDS SUMMARY | 2024-06-28 12:38 | XMS_ITS | Encounter Summary ---
Author Organization [employer] [facility] Address [address] [place] [address] [place] [address] Care Team Providers Care Holder Pile Driving Name Role Phone Adenike Souza Primary Care Provider [phone] Lanny Ewing MD Primary Care Pro vider Reason for Visit * Reason Comments Med Refill Encounter Details Date Type Department Care Team (Late Contact Info) Description 01/02/2023 Refill [facility] [address] [place] [address] Adenike Souza FNP [address] [place] [address] Dept [place] [address] Social History Tobacco Use Types Packs/Day Years Used Date Smoking Tobacco: Never Smokeless Tobacco: Never Alcohol Use Standard Drinks/Week Comments Never 0 (1 standard drink = 0.6 oz pur e alcohol) Depression Answer Date Recorded Patient Health Questionnaire-2 [...] Description 09/19/2024 2:30 PM EDT Medication Management [facility] [address] [place] [address] documented as of this encounter Visit Diagnoses Not on filedocumented in this encounter Care Teams Holder Pile Driving Relationship Specialty Start Date End Date Adenike Souza FNP PCP - General Family Medicine 01/15/22 03/02/23 Lanny Ewing MD [address] [place] [address] PCP - General Internal Medicine 03/03/23 documented as of this encounter
--- OUTSIDE RECORDS SUMMARY | 2024-06-28 12:38 | XMS_ITS | Encounter Summary ---
Author Organization [facility] Address [address] [place] [address] Phone Care Team Providers Care Blasting Contract Man Name Role Phone Lanny Roach Primary Care Provid er Encounter Details Date Type Department Care Team (Late Contact Info) Description 09/03/2023 Documentation Only [facility] [address] [place] [address] Mae Olsen [address] [place] [address] Social History Tobacco Use Types [...] Visit [facility] [address] [place] [address] Tiara Barrientos MD [address] [place] [address] [place] [address] documented as of this encounter Visit Diagnoses Not on filedocumented in this encounter Care Teams Blasting Contract Man Relationship Specialty Start Date End Date Lanny Roach [address] [place] [address] PCP - General 03/10/24 documented as of this encounter
--- OUTSIDE RECORDS SUMMARY | 2024-06-28 12:38 | XMS_ITS | Encounter Summary ---
Author Organization [facility] Address [address] [place] [address] Phone Care Team Providers Care Customer Response Representative Name Role Phone Lanny Roach Primary Care Provid er Encounter Details Date Type Department Care Team (Late Contact Info) Description 09/03/2023 Documentation Only [facility] [address] [place] [address] Mae Olsen [address] [place] [address] Social History Tobacco Use Types [...] Visit [facility] [address] [place] [address] Tiara Barrientos MD [address] [place] [address] [place] [address] documented as of this encounter Visit Diagnoses Not on filedocumented in this encounter Care Teams Customer Response Representative Relationship Specialty Start Date End Date Lanny Roach [address] [place] [address] PCP - General 03/10/24 documented as of this encounter
--- OUTSIDE RECORDS SUMMARY | 2024-06-28 12:38 | XMS_ITS | Encounter Summary ---
Author Organization [facility] Address [address] [place] [address] Phone Care Team Providers Care Assistant Project Engineer Name Role Phone Lanny Roach Primary Care Provid er Encounter Details Date Type Department Care Team (Late Contact Info) Description 09/03/2023 Documentation Only [facility] [address] [place] [address] Mae Olsen [address] [place] [address] Social History Tobacco Use Types [...] Visit [facility] [address] [place] [address] Tiara Barrientos MD [address] [place] [address] [place] [address] documented as of this encounter Visit Diagnoses Not on filedocumented in this encounter Care Teams Assistant Project Engineer Relationship Specialty Start Date End Date Lanny Roach [address] [place] [address] PCP - General 03/10/24 documented as of this encounter
--- OUTSIDE RECORDS SUMMARY | 2024-06-28 12:38 | XMS_ITS | Encounter Summary ---
Author Organization [facility] Address [address] [place] [address] Phone Care Team Providers Care Oyster Planter Name Role Phone Lanny Roach Primary Care Provid er Encounter Details Date Type Department Care Team (Late Contact Info) Description 09/03/2023 Documentation Only [facility] [address] [place] [address] Mae Olsen [address] [place] [address] Social History Tobacco Use Types [...] Visit [facility] [address] [place] [address] iTara Barrientos MD [address] [place] [address] [place] [address] documented as of this encounter Visit Diagnoses Not on filedocumented in this encounter Care Teams Oyster Planter Relationship Specialty Start Date End Date Lanny Roach [address] [place] [address] PCP - General 03/10/24 documented as of this encounter
--- OUTSIDE RECORDS SUMMARY | 2024-06-28 12:38 | XMS_ITS | Encounter Summary ---
Author Organization [facility] Address [address] [place] [address] [address] [place] [address] Care Team Providers Care Registration Coordinator Name Role Phone Adenike Souza ICE GRINDER Primary Care Provider [phone]- [phone] Lanny Ewing MD Primary Care Pro vider Reason for Visit * Reason Comments Med Refill Encounter Details Date Type Department Care Team (Late st Contact Info) Description 12/06/2022 Refill [facility] [address] [place] [address] [phone] Vandana Elmore DO [address] [place], [place] [phone] Social History Tobacco Use Types Packs/Day Years Used Date Smoking Tobacco: Never Smokeless Tobacco: Never Depression Answer Date Recorded Patient Health Questionnaire-2 Score 0 11/06/2022 Comments Unknown Sex and Gender Information Value Date Recorded Sex Assigned at Female 03/24/2022 10:17 AM EDT Legal Sex Female 10:17 AM EDT Gender Identity Female 03/24/2022 10:17 AM EDT Sexual Orientation Straight 03/24/2022 10 :17 AM EDT COVID-19 Exposure Response Date Recorded In the last 10 days, have yo u been in contact with someone who was confirmed or suspected to have Coronavirus/COVID-19? No / Unsure 11/06/2022 1:59 PM EDT documented as of this encounter Plan of Treatment Upcoming Encounters Date Type Department Care Team (Late st Contact Info) Description 09/19/2024 2:30 PM EDT Medication Management [facility] [address] [place] [address] [phone] documented as of this encounter Visit Diagnoses Not on filedocumented in this encounter Care Teams Registration Coordinator Relationship Specialty Start Date End Date Adenike Souza FNP PCP - General Family Medicine 01/15/22 03/02/23 Lanny Ewing MD [address] [place] [address] PCP - General Internal Medicine 03/03/23 documented as of this encounter
--- OUTSIDE RECORDS SUMMARY | 2024-06-28 12:38 | XMS_ITS | Encounter Summary ---
Author Organization [facility] Address [address] [place] [address] [address] [place] [address] Care Team Providers Care Solar Project Manager Name Role Phone Lanny Ewing MD Primary Care Pro vider Reason for Visit * Reason Comments Med Refill Encounter Details Date Type Department Care Team ([facility] st Contact Info) Description 07/19/2023 Refill [facility] [address] [place] [address] Lanny Ewing MD [address] [place], [place] [phone] Social History Tobacco Use Types Packs/Day Years [...] Description 09/19/2024 2:30 PM EDT Medication Management [facility] [address] [place] [address] documented as of this encounter Visit Diagnoses Not on filedocumented in this encounter Care Teams Solar Project Manager Relationship Specialty Start Date End Date Lanny Ewing MD [address] [place] [address] PCP - General Internal Medicine 03/03/23 documented as of this encounter
--- OUTSIDE RECORDS SUMMARY | 2024-06-28 12:38 | XMS_ITS | Clinical Summary ---
Author Organization [facility], Address [address] [place] [address] [place] [address] Phone Care Team Providers Care Explosives Engineer Name Role Phone Lanny Roach Primary Care Provid er Allergies Active Allergy Reactions Criticality Noted Date Comments Abatacept 09/02/2023 Adalimumab 09/02/2023 Aspirin 04/09/2016 Other reaction(s): pt states upset stomach Latex 09/02/2023 Nickel Itching 04/09/2016 Medications Calcium Carbonate-Vit D-Min (CALTRATE PLUS PO) Take by mouth Active albuterol HFA (PROVENTIL HFA;VENTOLIN HFA) 108 (90 Base) MCG/ACT inhaler Inhale 2 puffs every 6 (six) hours if needed for wheezing Active colchicine 0.6 MG tablet Take 0.6 mg by mouth 1 (one) time each day Active citalopram (CeleXA) 40 MG tablet Take 40 mg by mouth 1 (one) time each day Active Flovent HFA 220 MCG/ACT inhaler TAKE 2 PUFFS BY MOUTH TWICE A DAY 03/15/20 20 Active [address] capsule TAKE 1 CAPSULE AT SUPPERTIME ONCE A DAY ORALLY 90 03/10/20 20 Active Incruse Ellipta 62.5 MCG/INH aerosol powder INHALE 1 PUFF INTO THE LUNGS EVERY DAY FOR 30 DAYS INHALATION ONCE A DAY 30 DAYS 09/19/19 22 Active montelukast (SINGULAIR) 10 MG tablet Take 10 mg by mouth 1 (one) time each day in the evening 09/20/19 22 Active loratadine (CLARITIN) 10 MG tablet Take 10 mg by mouth 1 (one) time each day 07/06/19 22 Active gabapentin (NEURONTIN) 300 MG capsule Take 300 mg by mouth 08/19/19 22 Active ferrous gluconate (FERGON) 324 (38 Fe) MG tablet Take 1 tablet by mouth 08/29/19 22 Active D3-1000 25 MCG (1000 UT) capsule Take 1,000 Units by mouth 1 (one) time each day 09/03/19 22 Active azelastine (ASTELIN) 0.1 % nasal spray USE 1 SPRAY IN EACH NOSTRIL TWICE DAILY 90 07/14/19 22 Active Dapagliflozin Propanediol (Farxiga) 5 MG tablet Take 5 mg by mouth 1 (one) time each day 90 tablet 3 06/23/19 24 Active allopurinol (ZYLOPRIM) 300 MG tablet Take 300 mg by mouth 03/08/20 24 Active atorvastatin (LIPITOR) 20 MG tablet Take 20 mg by mouth at bed time Active Ozempic, 1 MG/DOSE, 4 MG/3ML solution pen-injector Inject 1 MG SUBCUTANEOUSLY EVERY 7 DAYS IN THE ABDOMEN, THIGHS OR UPPER ARM. ROTATE INJECTION SITES. 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 Serum creatinine above reference range 4 Seropositive rheumatoid arthritis 09/02/2023 Iron deficiency anemia 09/02/2023 Hypertensive retinopathy 09/02/2023 Hypertension 09/02/2023 Hypercholesterolemia 09/02/2023 Gout 09/02/2023 Anemia 09/02/2023 Microscopic hematuria 12/02/2019 Proteinuria Hyperkalemia History of acute kidney injury Encounters Date Type Department Care Team Description 05/19/2024 2:30 PM EST Office Visit [facility] [address] [place] [phone] Tiara Barrientos MD Stage 3b chronic kidney disease (HCC) (Primary Dx); Type 2 diabetes mellitus without complication (HCC) 03/29/2024 Documentation Only [facility] [address] [place] [phone] Mae Olsen 03/29/2024 Documentation Only [facility] [place] [address] [place] [address] Mea Olsne from Last 3 Months Immunizations Name Administration Dates Next Due Hepatitis B 01/18/2018,08/11/2017,07/14/2017 Influenza (IM) Preservative Free 02/28/2014 Influenza Split 02/08/2013 Influenza Split High Dose Pr eservative Free IM 04/11/2019 Influenza, Quadrivalent, Preservative Free 03/30,05/23/2021,02/23/2018 Influenza, Unspecified 02/19/2007 Pfizer SARS-COV-2 03/22/2021 Pneumococcal Conjugate 13-Valent 07/18/2021 Pneumococcal Conjugate Pcv 20 11/06/2022 Pneumococcal Polysaccharide 02/28/2014, 8,01/11/2003 Shingrix 06/20/2022,11/26/2021 Td 01/11/2003 Tdap 10/25/2014 Zoster 07/14/2017 Family History Medical History Relation Comments Throat cancer Father Asthma Mother Osteoarthritis Mother Breast cancer Sister Relation Status Comments Father Mother Sister Social History Tobacco Use Types Packs/Day Years Used Date Smoking Tobacco: Former Cigarettes Q uit: 05/25/2014 Tobacco Cessation:Counseling Given: Not Answered Alcohol Use Standard Drinks/Week Comments No 0 (1 standard drink = 0.6 oz pur e alcohol) Comments Unknown Sex and Gender Information Value Date Recorded Sex Assigned at Not on file Legal Sex Female 3:36 PM EST Gender Identity Not on file Sexual Orientation Not on file Last Filed Vital Signs Vital Sign Reading Time Taken Comments Blood Pressure 95/70 05/19/2024 2:24 PM EST Pulse - - Temperature - - Respiratory Rate - - Oxygen Saturation - - Inhaled Oxygen Concentration - - Weight 87.1 kg (192 lb) 03/20/2022 2:19 PM EDT Height - - Body Mass Index - - Plan of Treatment Upcoming Encounters Date Type Department Care Team (Late st Contact Info) Description 11/17/2024 1:30 PM EDT Office Visit [facility], [address] [place] [address] Tiara Barrientos MD [address] [place] [address] Health Maintenance Due Date Last Done Comments Breast Cancer Screening 1950 Colorectal Cancer Screening: Annual FOBT 2001 Colorectal Cancer Screening: Colonoscopy 2001 Colorectal Cancer Screening: Sigmoidoscopy 2001 Diabetes: Ophthalmology Exam 12/02/2019 Diabetes: Pedal Pulse Checked 12/02/2019 Diabetes: Sensory Foot Exam 12/02/2019 Diabetes: Visual Foot Exam 12/02/2019 Diabetes: Hemoglobin A1C 07/05/2024 024, 10/13/2023, 08/12/2023, Additional history exists Hepatitis B Vaccine Aged Out 01/18/2018, 08/11/2017, 07/14/2017 No longer eligible based on patient's age to complete this topic Pneumococcal Vaccine: 65+ Years Completed 11/06/2022, 07/18/2021, 02/28/2014, Additional history exists Influenza Vaccine Completed 04/01/2024, , 05/23/2021, Additional history exists Insurance MEDICARE [place]ICAID [place] Care Teams Explosives Engineer Relationship Specialty Start Date End Date Lanny Roach [address] [place] [id number] PCP - General 03/10/24
--- OUTSIDE RECORDS SUMMARY | 2024-06-28 12:38 | XMS_ITS | Encounter Summary ---
Author Organization [employer] Address [address] [place] [address] [address] [place] [address] Care Team Providers Care Bulldozer Engineer Name Role Phone Lanny Ewing MD Primary Care Pro vider Reason for Visit * Reason Onset Date Comments Prior Authorization 02/09/2024 Encounter Details Date Type Department Care Team ([facility] st Contact Info) Description 02/09/2024 Telephone [facility] [address] [place] [address] Lanny Ewing MD [address] [place] [address] Prior Authorization Social History Tobacco Use Types Packs/Day Years [...] encounter Miscellaneous Notes * Telephone Encounter - Katt Cox - 02/11/2024 9:56 AM EDT Please see message below and advise if agree with PA. Thank you * Telephone Encounter - Lashon Brewster - 02/09/2024 11:35 AM EDT Tc from pt stating script for semaglutide (Ozempic, 1 MG/DOSE,) 2 MG/1.5ML solution pen-injector requires a PA. documented in this encounter Plan of Treatment Upcoming Encounters Date Type Department Care Team (Late st Contact Info) Description 09/19/2024 2:30 PM EDT Medication Management [facility] [address] [place] [phone] documented as of this encounter Goals Goal Patient Goal Type Associated Problems Recent Progress Patient-Stated? Author Blood Pressure < 140/90 Blood Pressure 115/64(2023 2:32 PM EST) No Jessica Evans Hemoglobin A1c < 7 Result Component 6.8( 4 10:49 AM EST) No Jessica Evans documented as of this encounter Visit Diagnoses Not on filedocumented in this encounter Additional Health Concerns Assessment Noted Time PHQ-9 Depression Total Score: 7 09/11/19 24 2:05 PM EDT documented as of this encounter Care Teams Bulldozer Engineer Relationship Specialty Start Date End Date Lanny Ewing MD [address] [place] [address] PCP - General Internal Medicine 03/03/23 documented as of this encounter
--- OUTSIDE RECORDS SUMMARY | 2024-06-28 12:38 | XMS_ITS | Encounter Summary ---
Author Organization [facility] Address [address] [place] [address] Phone Care Team Providers Care Painting Manager Name Role Phone Lanny Roach Primary Care Provid er Encounter Details Date Type Department Care Team (Late Contact Info) Description 09/03/2023 Documentation Only [facility] [address] [place] [address] Mae Olsen [address] [place] [address] Social History Tobacco Use Types [...] Visit [facility] [address] [place] [address] Tiara Barrientos MD [address] [place] [address] [place] [address] documented as of this encounter Visit Diagnoses Not on filedocumented in this encounter Care Teams Painting Manager Relationship Specialty Start Date End Date Lanny Roach [address] [place] [address] PCP - General 03/10/24 documented as of this encounter
--- OUTSIDE RECORDS SUMMARY | 2024-06-28 12:38 | XMS_ITS | Encounter Summary ---
Author Organization [facility] Address [address] [place] [address] Phone Care Team Providers Care J2Ee Engineer Name Role Phone Lanny Roach Primary Care Provid er Encounter Details Date Type Department Care Team (Late Contact Info) Description 09/03/2023 Documentation Only [facility] [address] [place] [address] Mae Olsen [address] [place] [address] Social History Tobacco Use Types [...] Visit [facility] [address] [place] [address] Tiara Barrientos MD [address] [place] [address] [place] [address] documented as of this encounter Visit Diagnoses Not on filedocumented in this encounter Care Teams J2Ee Engineer Relationship Specialty Start Date End Date Lanny Roach [address] [place] [address] PCP - General 03/10/24 documented as of this encounter
--- OUTSIDE RECORDS SUMMARY | 2024-06-28 12:38 | XMS_ITS | Clinical Summary ---
Author Organization [facility] [employer] Address [address] [place] [address] [address] [place] [address] Care Team Providers Care Mechanical Service Specialist Name Role Phone Lanny Ewnig MD Primary Care Pro vider Allergies Active Allergy Reactions Criticality Noted Date Comments Abatacept Itching 07/15/2023 Adalimumab Dizziness 07/15/2023 Aspirin High 04/09/2016 Other reaction(s): pt states upset stomach Other Reaction(s): abdominal pain, Not available Latex Hives High 07/15/2023 Other Reaction(s): BLISTERS Nickel Itching,Rash Low 04/09/2016 Medications colchicine 0.6 MG tablet Take 0.6 mg by mouth in the morning. 06/09/19 23 Active dexlansoprazol e (Dexilant) [address] capsule Take 1 capsule by mouth in the morning. 04/22/20 22 Active Blood Pressure Monitoring (Blood Pressure Kit) device USE TO CHECK BLOOD PRESSURE EVERY DAY DIRECTED 10/04/19 22 Active albuterol (2.5 MG/3ML) 0.083% nebulizer solutionIndica tions:Seasonal allergic rhinitis, unspecified trigger Take 3 mL (2.5 mg) by nebulization every 4 (four) hours if needed for wheezing or shortness of breath. 75 mL 3 03/05/20 23 Active febuxostat (Uloric) 80 MG tablet Take 1 tablet by mouth 1 (one) time each day. 04/14/20 23 Active lisinopril 20 MG tablet Take 20 mg by mouth in the morning. 09/03/19 24 Active Blood Pressure Monitor misc 1 Device Once per day. Needs large cuff size 1 each 10/16/19 24 Active hydrocortisone 1 % cream Apply topically 2 times daily. 1 g 10/16/19 24 Active albuterol (Ventolin HFA) 108 (90 Base) MCG/ACT inhaler INHALE 2 PUFFS BY MOUTH EVERY 6 HOURS NEEDED 18 g 11/19/19 24 Active gabapentin (Neurontin) 400 MG capsule Take 1 capsule (400 mg) by mouth 2 times daily. 180 capsule 12/28/19 24 025 Active ferrous gluconate (Fergon) 324 (38 Fe) MG tablet TAKE 1 TABLET BY MOUTH EVERY OTHER DAY IN THE MORNING 45 tablet 1 01/20/20 24 Active montelukast (Singulair) 10 MG tabletIndicati ons:Seasonal allergic rhinitis, unspecified trigger TAKE 1 TABLET BY MOUTH AT BEDTIME 90 tablet 1 01/20/20 24 Active loratadine (Claritin) 10 MG tabletIndicati ons:Seasonal allergic rhinitis, unspecified trigger TAKE 1 TABLET BY MOUTH EVERY MORNING 90 tablet 1 01/20/20 24 Active Blood Glucose Monitoring Suppl (ONE TOUCH ULTRA 2) w/Device kitIndications :Type 2 diabetes mellitus with stage 3b chronic kidney disease, without long-term current use of insulin (CMS/HCC) USE TO TEST BLOOD SUGAR TWICE A DAY 1 kit 03/01/20 24 Active Azelastine HCl 137 MCG/SPRAY solution USE 1 SPRAY IN EACH NOSTRIL TWICE DAILY 30 mL 5 03/14/20 24 Active citalopram (CeleXA) 20 MG tablet Take 1 tablet (20 mg) by mouth Once per day. 90 tablet 04/01/20 24 Active Calcium Carb-Cholecalc iferol (Calcium 600+D) 600-20 MG-MCG tablet Take 1 tablet by mouth at noon and 1 tablet in the evening. 180 tablet 1 04/01/20 24 025 Active Semaglutide, 2 MG/DOSE, (Ozempic, 2 MG/DOSE,) 8 MG/3ML solution pen-injectorIn dications:Type 2 diabetes mellitus with stage 3b chronic kidney disease, without long-term current use of insulin (CMS/HCC) Inject 0.75 mL (2 mg) under the skin 1 (one) time per week. 3 mL 5 04/04/20 24 Active Umeclidinium-V ilanterol (Anoro Ellipta) 62.5-25 MCG/ACT aerosol powder Inhale 1 puff Once per day. INHALE 1 PUFF BY MOUTH EVERY DAY IN THE MORNING 60 each 5 04/18/20 24 Active glucose blood (OneTouch Verio) test stripIndicatio ns:Type 2 diabetes mellitus with stage 3b chronic kidney disease, without long-term current use of insulin ([facility]) 1 each by Other route Once per day. 100 each 04/25/20 24 Active Lancets 33G miscIndication s:Type 2 diabetes mellitus with stage 3b chronic kidney disease, without long-term current use of insulin (CMS/HCC) 1 each Once per day. 100 each 04/25/20 24 Active Farxiga 10 MGIndications: Type 2 diabetes mellitus with stage 3b chronic kidney disease, without long-term current use of insulin (CMS/HCC) TAKE 1 TABLET EVERY MORNING 90 tablet 05/17/20 24 Active zolpidem (Ambien) 5 MG tabletIndicati ons:Insomnia, unspecified type TAKE 1 TABLET BY MOUTH AT BEDTIME NEEDED FOR SLEEP 30 tablet 1 06/14/19 25 Active atorvastatin (Lipitor) 20 MG tablet TAKE 1 TABLET BY MOUTH AT BEDTIME 90 tablet 06/22/19 25 Active atorvastatin (Lipitor) 20 MG tablet Take 1 tablet (20 mg) by mouth Once per day. 90 tablet 03/25/20 24 025 Discontinued zolpidem (Ambien) 5 MG tabletIndicati ons:Insomnia, unspecified type Take 1 tablet (5 mg) by mouth if needed at bedtime for sleep. 30 tablet 1 04/01/20 24 025 Discontinued Active Problems Problem Noted Date Diagnosed Date Health care maintenance 09/12/2023 History of tobacco use 09/12/2023 History of anemia 09/12/2023 Dermatitis 09/12/2023 Invasive ductal carcinoma of right breast 2023 COPD (chronic obstructive pulmonary disease) 12/2023 Moderate persistent asthma with acute exacerbati on 03/05/2023 Assessment & Plan (03/05/2023 11:01 AM EDT): Pt's symptomatology and examination indicative of an acute asthmatic exacerbation. Pt reports frequent asthma attacks, using Albuterol only. No fever, dry cough, no respiratory distress. Negative flu and negative Covid tests. Plan: Prednisone taper ( counseled about Blood sugar elevation while on Prednisone ) continue albuterol nebulizations at home, add Flovent BID. Chest x-ray. Pulmonology referral for spirometry and PFTs Follow up if worsening or no improvement of symptoms Insomnia 12/18/2022 Overview (12/18/2022): Sleep hygiene: no TV/screens, don't lay in bed unable to sleep Failed melatonin Assessment & Plan (12/18/2022 11:09 PM EDT): Encouraged continued sleep hygiene Will Rx Ramelteon 8 mg daily F/u 3 months or sooner PRN with new PCP Type 2 diabetes mellitus wit h stage 3b chronic kidney disease, without long-term current use of insulin 07/24/2022 Overview (12/18/2022): A1c today 7.0; was 6.7 on 07/24/22 Glucose 159 on 12/10/22 A1c repeat not due yet Reports increased diarrhea and itching with Metformin. Will discontinue Metformin Regimen Continue Farxiga 5mg + Trulicity 0.75 mg/0.5 ml Continue checking fasting glucose daily Microalbumin: WNL 01/28/22 Lipid panel: Elevated 01/15/22 Foot exam: R foot 8/10 sensation impairment, L foot 10/10 PNA: 07/18/21 PCV 13; PCV 20 11/06/22 Tdap: 10/25/2014 Statin: Simvastatin 20mg Ray/Arb: Lisinopril 20mg Assessment & Plan (12/18/2022 11:07 PM EDT): Will refer to Podiatry for further foot care Discontinue Metformin Rx Trulicity F/u with Nephrology PRN F/u 3 months or sooner PRN with new PCP Assessment & Plan (11/23/2022 11:47 PM EDT): Will Rx one touch glucose strips, called brand to pharmacy Encouraged strict diabetic diet d/t A1c increase Received PCV 20 today Followup 1 month or sooner PRN 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 Next appt 11/07/22 Assessment & Plan (12/18/2022 11:10 PM EDT): Care managed by specialist F/U PRN Assessment & Plan (11/23/2022 11:51 PM EDT): Encouraged pt to notify Rheum of her L shoulder pain and back pain Proteinuria 12/26/2020 Microscopic hematuria 12/02/2019 Stage 3 chronic kidney disease 12/02/2019 Chronic gouty arthritis 11/04/2018 Overview (07/24/2022): Has Allopurinol and Cochicine at home. Uses PRN Essential hypertension 08/19/2018 Overview (11/23/2022): Lisinopril dose reduction recently since her Potassium was elevated. Launch Check Out informed her that her potassium level was not elevated by her medicine but was normal for her kidney function and age Increased Lisinopril dose back to 20mg on 07/24/22, Educated pt to followup closely with nephrology Notify clinic if Potassium becomes significantly elevated again Assessment & Plan (11/23/2022 11:54 PM EDT): BP controlled today 122/78 Continue current regimen Followup 1 month or sooner PRN Obesity (BMI 30-39.9) 08/19/2018 Gastroesophageal reflux disease without esophagi tis 01/18/2018 Overview (11/26/2022): GI appt 10/09/22: dexlansoprazole (Dexilant) 60 mg , F/u 6 months Hyperlipidemia 03/06/2015 Recurrent major depressive episodes, mild 2014 Osteopenia 12/28/2014 Hypertensive retinopathy 01/04/2014 Encounters Date Type Department Care Team Description 06/21/2024 Refill [facility] [address], [place] [phone] Lanny Ewing MD 06/11/2024 Refill [facility] [address] [place] [address] Lanny Ewing MD Insomnia, unspecified type 05/17/2024 Refill [facility] [address] [place] [address] Eden Quezada ANP Type 2 diabetes mellitus with stage 3b chronic kidney disease, without long-term current use of insulin (CMS/HCC) 04/25/2024 Orders Only [facility] [address] [place] [address] Lanny Ewing MD Type 2 diabetes mellitus with stage 3b chronic kidney disease, without long-term current use of insulin (CMS/HCC) 04/18/2024 Refill [facility] [address] [place] [address] Lanny Ewing MD 04/04/2024 Orders Only [facility] [address] [place] [address] Lanny Ewing MD Type 2 diabetes mellitus with stage 3b chronic kidney disease, without long-term current use of insulin (CMS/HCC) (Primary Dx) 04/04/2024 Orders Only GENERIC EXTERNAL DATA DEPARTMENT Provider, Generic External Data 04/01/2024 2:15 PM EST Office Visit [facility] [address] [place] [phone] Lanny Ewing MD Insomnia, unspecified type (Primary Dx); Encounter for immunization; Seropositive rheumatoid arthritis (CMS/[facility]); Hyperlipidemia, unspecified hyperlipidemia type; Health care maintenance; Type 2 diabetes mellitus with stage 3b chronic kidney disease, without long-term current use of insulin (CMS/HCC); Obesity (BMI 30-39.9); Moderate persistent asthma with acute exacerbation 04/01/2024 Travel from Last 3 Months Immunizations Name Administration Dates Next Due Hep B, adult 01/18/2018,08/11/2017,07/14/2017 Influenza injectable quadriv alent preservative free 03/30/2023,05/23/2021,02/23/2018 Influenza, High Dose Seasona l, Preservative Free 04/01/2024,04/11/2019 Influenza, IIV3, injectable 02/19/2007 Influenza, Split (incl. [place] antigen) 02/08/2013 Influenza, seasonal, injecta ble, preservative free 02/28/2014 Pfizer Covid-19 Vaccine 12+ 09/11/2023, Pneumococcal Conjugate PCV 13 07/18/2021 Pneumococcal Conjugate PCV 20 11/06/2022 Pneumococcal Polysaccharide PPSV23 02/28/2014,,01/11/2003 RSV Bivalent 07/30/2023 TD (adult), 2 Lf tetanus tox oid, preservative free, adsorbed 01/11/2003 Tdap 10/25/2014 Zoster, Recombinant 06/20/2022,11/26/2021 Zoster, live 07/14/2017 Family History Medical History Relation Name Comments Throat cancer Brother Throat cancer Father Asthma Mother breast ca at her 52 y of age Sister unspecified ca in her face Sister Relation Name Status Comments Brother Father Mother Sister Social History Tobacco Use Types Packs/Day Years Used Date Smoking Tobacco: Former Cigarettes Passive Smoke Exposure: Never Smokeless Tobacco: Never Tobacco Cessation:Counseling Given: Not Answered Comments:Started smoking 17 y of age ,stopped [...] Orientation Straight 03/24/2022 10 :17 AM EDT Last Filed Vital Signs Vital Sign Reading Time Taken Comments Blood Pressure 115/64 04/01/2024 2:32 PM EST Pulse 70 04/01/2024 2:32 PM EST Temperature 36.4 ??C (97.6 ??F) 04/01/2024 2:32 PM ES T Respiratory Rate 18 04/01/2024 2:32 PM EST Oxygen Saturation 94% 04/01/2024 2:32 PM EST Inhaled Oxygen Concentration - - Weight 91.8 kg (202 lb 6.4 oz) 04/01/2024 2:32 P M EST Height 162 cm (5' 3.78 ) 04/01/2024 2:32 PM EST Body Mass Index 34.98 04/01/2024 2:32 PM EST Plan of Treatment Upcoming Encounters Date Type Department Care Team (Late st Contact Info) Description 09/19/2024 2:30 PM EDT Medication Management [facility] [address] [place] [address] Health Maintenance Due Date Last Done Comments CT Colonography 1952 FIT DNA/Cologuard 1952 FIT 1952 FOBT 1952 Sigmoidoscopy 1952 Eye Exam 1962 Alcohol/Substance Use Screening 1964 Diabetes: Foot Exam 12/11/2023 12/10/2022, COVID-19 Vaccine ( season) 2024 09/11/2023, 11/30/2021, 03/22/2021, Additional history exists Diagnostic Breast Imaging 06/28/2024 03/24/2024, SDOH Screening 07/20/2024 07/20/2023 Depression Screening 09/10/2024 09/11/2023, 09/11/19 24 Mammogram 09/21/2024 03/24/2024, 05/27, 06/16/2022, Additional history exists Diabetes: Hemoglobin A1C 10/02/2024 024, 10/13/2023, 08/12/2023, Additional history exists DTaP/Tdap/Td Vaccines (2 - Td or Tdap) 10/25/2024 10/25/2014, 01/11/2003 Tobacco Screening 04/01/2025 04/01/2024 Lipid Panel 04/04/2025 04/04/2024, 09/23, 08/12/2023, Additional history exists Colonoscopy 09/17/2028 09/17/2018 Colorectal Cancer Screening 09/17/2028 Hepatitis B Vaccines Completed 01/18/2018, 08/11/2017, 07/14/2017 Zoster Vaccines Completed 06/20/2022, 07/0 09/2021, 07/14/2017 Pneumococcal Vaccine: 50+ Years Completed 11/06/2022, 07/18/2021, 02/28/2014, Additional history exists RSV Patients and Patients Aged 60 years or older Completed 07/30/2023 Hepatitis C Screening Completed 10/13/2023 Influenza Vaccine Completed 04/01/2024, , 05/23/2021, Additional history exists HIB Vaccines Aged Out No longer eligi [...] patient's age to complete this topic Meningococcal Vaccine Aged Out No clarisse katty eligible based on patient's age to complete this topic RSV under 20 months Aged Out No longe r eligible based on patient's age to complete this topic Rotavirus Vaccines Aged Out No longer eligible based on patient's age to complete this topic Goals Goal Patient Goal Type Associated Problems Recent Progress Patient-Stated? Author Blood Pressure < 140/90 Blood Pressure 115/64(2023 2:32 PM EST) No Jessica Evans Hemoglobin A1c < 7 Result Component 6.8( 10:49 AM EST) No Jessica Evans Procedures Procedure Name Priority Date/Time Associated Diagnosis Comments COMPREHENSIVE METABOLIC PANEL Routine 04/04/2024 11:24 AM EST Type 2 diabetes mellitus with stage 3b chronic kidney disease, without long-term current use of insulin ([facility]) CYCLIC CITRULLINATED PEPTIDE (CCP) AB (IGG) Routine 04/04/2024 10:49 AM EST Type 2 diabetes mellitus with stage 3b chronic kidney disease, without long-term current use of insulin ([facility]) SED RATE BY MODIFIED WESTERGREN Routine 04/04/2024 10:49 AM EST C-REACTIVE PROTEIN Routine 04/04/2024 10 :49 AM EST CREATINE KINASE, TOTAL Routine 10:49 AM EST URIC ACID Routine 04/04/2024 10:49 AM EST COMPREHENSIVE METABOLIC PANEL Routine 04/04/2024 10:49 AM EST RHEUMATOID FACTOR Routine 04/04/2024 10: 49 AM EST CBC WITH AUTO DIFFERENTIAL Routine 04/04/2024 10:49 AM EST VITAMIN B12/FOLATE, SERUM PANEL Routine 04/04/2024 10:49 AM EST Type 2 diabetes mellitus with stage 3b chronic kidney disease, without long-term current use of insulin ([facility]) LIPID PANEL, STANDARD Routine 04/04/2024 10:49 AM EST Type 2 diabetes mellitus with stage 3b chronic kidney disease, without long-term current use of insulin ([facility]/HCC) HEMOGLOBIN A1C Routine 04/04/2024 10:49 AM EST Type 2 diabetes mellitus with stage 3b chronic kidney disease, without long-term current use of insulin ([facility]/HCC) CHLAMYDIA/N. GONORRHOEAE RNA, TMA, UROGENITAL Routine 04/04/2024 10:49 AM EST Annual physical exam BI MAMMOGRAM DIAGNOSTIC TOMOSYNTHESIS RIGHT Routine 03/24/2024 2:10 PM EDT HEPATITIS C AB W/REFL TO HCV RNA, QN, PCR Routine 10/13/2023 10:30 AM EDT Annual physical exam HM COLONOSCOPY Routine 09/17/2018 1:13 PM EDT from Last 3 Months or Most Recently Relevant to Health Maintenance Results * (ABNORMAL) Comprehensive Metabolic Panel (04/04/2024 11:24 AM EST) Only the most recent of2 resultswithin the time period is included. Sodium 140 135 - 145 mmol/L [facility] Potassium 4.7 3.3 - 5.1 mmol/L [facility] Chloride 112(H) 96 - 108 mmol/L [facility] Carbon Dioxide 20(L) 22 - 29 mmol/L [facility] Anion Gap 13 12 - 20 [facility] Urea Nitrogen (BUN) 27(H) 9 - 16 mg/dL [facility] Creatinine, Serum 1.11 0.5 - 1.4 mg/dL [facility] Estimated Glomerular Filt Rate 48 [facility] Comment:Chronic Kidney Disea se: Estimated GFR < 60 mL/min/1.30k2Ghozoo Kidney Disease: Estimated GFR < 15 mL/min/1.73m2 Glucose 129(H) 60 - 115 mg/dL [facility] Calcium 9.7 8.4 - 10.2 mg/dL [facility] Bilirubin, Total 0.3 0.0 - 1.0 mg/dL [facility] Aspartate Amino Transferase 25 5 - 31 U/L [facility] Alanine Aminotransferase 29 0 - 31 U/L [facility] Total Protein 7.1 6.5 - 8.0 g/dL [facility] Albumin Level 4.1 3.5 - 5.0 g/dL [facility] Alkaline Phosphatase 112 39 - 117 U/L [facility] Blood Venous blood specimen / Unknown 04/04/2024 11:24 AM EST 04/04/2024 11:24 AM EST Lanny Vasquez MD LAB BLOOD ORDERAB LES Final Result Performing Organization Address [facility] Co de Phone Number [facility] [address] [place] [phone] * Vitamin B12 (Cobalamin) and Folate Panel, Serum (04/04/2024 10:49 AM EST) Pathologist [facility] Vitamin B12 383 200 - 900 pg/mL [facility] Comment:NORMAL 200-900 PG/ML INDETERMINATE 160-199 PG/ML DEFICIENT < 160 PG/ML Folate 10.2 > or = 4.0 ng/mL [facility] Comment:Reference Values:> o r = 4.0 ng/mL< 4.0 ng/mL suggests folate deficiency Methotrexate, aminopterin and folinic acid(leucovorin) are chemotherapeutic agents whose molecularstructures are similar to folate; therefore, the Architectfolate assay cannot be used for patients using these drugs. Blood 04/04/2024 10:4 9 AM EST 04/04/2024 12:57 PM EST us Lanny Vasquez MD LAB BLOOD ORDERAB LES Final Result Performing Organization Address [facility] Co de Phone Number [facility] [address] [place] [phone] * CBC auto differential (04/04/2024 10:49 AM EST) [facility] White Blood Count 7.7 4.8 - 10.8 X10*3/uL [facility] Red Blood Count 4.49 4.20 - 5.50 X10*6/uL [facility] Hemoglobin 13.1 12.0 - 16.0 g/dl [facility] Hematocrit 40.3 37.0 - 47.0 % [facility] Mean Corpuscular Volume 89.8 80.0 - 98.0 fL [facility] Mean Corpuscular Hemoglobin 29.2 27.0 - 33.0 pg [facility] Mean Corpuscular HGB Conc 32.5 31.0 - 35.0 g/dl [facility] Red Cell Distribution Width 14.8 11.0 - 16.0 % [facility] Platelet Count 283 160 - 400 X10*3/uL [facility] Mean Platelet Volume 9.9 9.4 - 12.3 fL [facility] Neutrophils Percent Auto 62.5 45 - 73 % [facility] Imm Gran Pct Auto 0.4 0.0 - 0.4 % [facility] Lymphocytes Percent Auto 27.1 20 - 40 % [facility] Monocytes Percent Auto 7.8 2 - 11 % [facility] Eosinophils Percent Auto 1.8 0 - 4 % [facility] Basophils Percent Auto 0.4 0 - 2 % [facility] NRBC Pct Auto 0.0 0.0 - 0.2 /100WBC [facility] Neutrophils Absolute Auto 4.8 2.0 - 8.3 x10*3/uL [facility] Imm Gran Abs Auto 0.03 0.00 - 0.03 X10*3/uL [facility] Lymphocytes Absolute Auto 2.1 1.2 - 4.9 X10*3/uL [facility] Monocytes Absolute Auto 0.6 0.1 - 1.2 X10*3/uL [facility] Eosinophils Absolute Auto 0.1 0.0 - 0.4 X10*3/uL [facility] Basophils Absolute Auto 0.0 0.0 - 0.2 X10*3/uL [facility] NRBC Abs Auto 0.000 0.0 - 0.012 X10*3/uL [facility] 04/04/2024 10:4 9 AM EST 04/04/2024 12:57 PM EST Generic External Data Provider LAB BLOOD ORDERAB LES Final Result Performing Organization Address [facility] Co de Phone Number [facility] [address] [place] [phone] * Cyclic Citrullinated Peptide (CCP) Antibody (IgG) (04/04/2024 10:49 AM EST) [facility] Cyclic Citrullinated Peptide 19 UNITS [facility] Comment:Reference RangeNegat zahida: <20Weak Positive: 20-39Moderate Positive: 40-59Strong Positive: >59THIS TEST WAS PERFORMED AT:[facility] [place] [phone] HUFF MD 04/04/2024 10:4 9 AM EST 04/04/2024 12:57 PM EST Generic External Data Provider LAB BLOOD ORDERAB LES Final Result Performing Organization Address [facility] Co de Phone Number [facility] [address] [place] [phone] * Chlamydia/N. Gonorrhoeae RNA, TMA, Urogenitial (04/04/2024 10:49 AM EST) [facility] CT PCR NOT DETECTED Not Detect. [facility] Comment:A not detected test result does not exclude the possibilityof infection because test results can be affected byimproper specimen collection, concurrent antibiotic therapy,or the number of organisms in the specimen which may bebelow the sensitivity of the test. As with many diagnostictests, results from the Xpert CT/NG assay should beinterpreted in conjunction with other laboratory andclinical data available to the clinician.Xpert CT/NG performance has not been evaluated in patientsless than 14 years of age. The assay should not be used forthe evaluationof suspected sexual abuse or for other medico-legalindications. Additional testing is recommended in anycircumstance when false positive or false negative resultscould lead to adverse medical, social or psychologicalconsequences. NG PCR NOT DETECTED Not Detect. [facility] Comment:A not detected test result does not exclude the possibilityof infection because test results can be affected byimproper specimen collection, concurrent antibiotic therapy,or the number of organisms in the specimen which may bebelow the sensitivity of the test. As with many diagnostictests, results from the Xpert CT/NG assay should beinterpreted in conjunction with other laboratory andclinical data available to the clinician.Xpert CT/NG performance has not been evaluated in patientsless than 14 years of age. The assay should not be used forthe evaluationof suspected sexual abuse or for other medico-legalindications. Additional testing is recommended in anycircumstance when false positive or false negative resultscould lead to adverse medical, social or psychologicalconsequences. Urine Urethral structure / Unknown 04/04/2024 10:49 AM EST 04/04/2024 12:57 PM EST Narrative [facility] - 04/04/2024 5:56 PM EST Urine us Lanny Vasquez MD LAB MICROBIOLOGY - GENERAL ORDERABLES Final Result Performing Organization Address [facility] Co de Phone Number [facility] [address] [place] [phone] * Sed Rate by Modified Georgeren (04/04/2024 10:49 AM EST) Pathologist [facility] Erythrocyte Sedimentation Rate 14 0 - 20 MM/HR [facility] Comment:Patients with polycy themia and many hemoglobin abnormalitiesmay have depressed sed rates whereas patients with anemiamay have elevated sed rates. 04/04/2024 10:4 9 AM EST 04/04/2024 12:57 PM EST us Generic External Data Provider LAB BLOOD ORDERAB LES Final Result Performing Organization Address [facility] Co de Phone Number [facility] [address] [place] [phone] * Rheumatoid Factor (04/04/2024 10:49 AM EST) Rheumatoid Factor <13.0 <15.0 IU/mL [facility] 04/04/2024 10:4 9 AM EST 04/04/2024 12:57 PM EST Generic External Data Provider LAB BLOOD ORDERAB LES Final Result Performing Organization Address [facility] Co de Phone Number [facility] [address] [place] [phone] * (ABNORMAL) C-reactive Protein (04/04/2024 10:49 AM EST) C Reactive Protein 1.07(H) < or = 0.50 mg/dL [facility] 04/04/2024 10:4 9 AM EST 04/04/2024 12:57 PM EST Generic External Data Provider LAB BLOOD ORDERAB LES Final Result Performing Organization Address [facility] Co de Phone Number [facility] [address] [place] [phone] * Uric acid (04/04/2024 10:49 AM EST) Uric Acid 3.3 2.4 - 5.7 mg/dL [facility] 04/04/2024 10:4 9 AM EST 04/04/2024 12:57 PM EST Generic External Data Provider LAB BLOOD ORDERAB LES Final Result Performing Organization Address [facility] de Phone Number [facility] [address] [place] [address] [phone] * (ABNORMAL) Hemoglobin A1c (04/04/2024 10:49 AM EST) Hemoglobin A1c 6.8(H) <6.0 % [facility] Comment:Hemoglobin A1C Refer ence Range Adults: 4.8 - 6.0 % Non diabetic: < 6.0 % Goal: < 7.0 %Additional Action Suggested: > 8.0 %Note: Hemoglobin A1c results are invalid for patients with abnormal amounts of HbF. Blood transfusions may impact the HbA1c concentration in the patient sample. Estimated Average Glucose 148 mg/dL [facility] Comment:eAG = Estimated ave rage glucose which is %A1C expressed asaverage glucose, using the formula of the E5P-LfngomrBzjrren Glucose study (ADAG), Diabetes Care, Vol.31,#8,2007 Blood Venous blood specimen / Unknown 04/04/2024 10:49 AM EST 04/04/2024 12:57 PM EST us Lanny Vasquez MD LAB BLOOD ORDERAB LES Final Result [facility] [address] [place] [phone] * Creatine Kinase, Total (04/04/2024 10:49 AM EST) Creatine Kinase Total 39 26 - 140 U/L [facility] 04/04/2024 10:4 9 AM EST 04/04/2024 12:57 PM EST us Generic External Data Provider LAB BLOOD ORDERAB LES Final Result Performing Organization Address City/[facility]/ZIP Co de Phone Number [facility] [address] [place] [address] [phone] * (ABNORMAL) Lipid Panel, Standard (04/04/2024 10:49 AM EST) Triglycerides 156(H) <150 mg/dL [facility] Comment:Desirable Triglyceri de: less than 150 mg/dLBorderline High Triglyceride 150-199 mg/dLHigh Triglyceride: 200-499 mg/dLVery High Triglyceride: greater than or equal to 5OO mg/dL Cholesterol 119 <200 mg/dL [facility] Comment:Desirable Cholestero l: less than 200 mg/dLBorderline High Cholesterol: 200-239 mg/dLHigh Cholesterol: greater than 239 mg/dL LDL Cholesterol Calculated 54 <100 mg/dL [facility] Comment:Desirable LDL: less than 100 mg/dLNear Optimal/Above Optimal LDL: 110- 129 mg/dLBorderline High LDL: 130-159 mg/dLHigh LDL: 160-189 mg/dLVery High LDL: greater than or equal to 190 mg/dL HDL Cholesterol 34(L) >40 mg/dL [facility] Comment:Desirable HDL: great er than 40 mg/dL Note: This HDL assay may give artificially low results in patients with liver disease. Blood Venous blood specimen / Unknown 04/04/2024 10:49 AM EST 04/04/2024 12:57 PM EST Lanny Vasquez MD LAB BLOOD ORDERAB LES Final Result Performing Organization Address [facility]/State/ZIP Co de Phone Number [facility] [address] [place] [phone] * BI Mammogram Diagnostic Tomosynthesis Right (03/24/2024 2:10 PM EDT) Anatomical Region Laterality Modality Breast Right Mammography 03/24/2024 2:10 PM EDT Narrative 03/24/2024 2:42 PM EDT ? [facility] [place] ? [address] ?[place] [address] ? Mammography Report ? Signed ? Patient: Manrique,Darlene ?MR#: [id number] ?? 7 ? : 1950 ?Acct:[id number] ? Age/Sex: 73 / F ?ADM Date: 10/31/24 ? Loc: HO.MAMMO ? Attending Dr: Lanny Vasquez MD ? Ordering Physician: Lanny Ewing MD ?Results: 3.6MProbably Benign Finding - Short 6 M ?? F/U Suggested ? Date of Service: 03/24/24 ?Follow Up: 6 Month F/U ? Procedure(s): MM tomosynthesis diagnostic RT ?? Accession Number(s): [id number] ? cc: Lanny Ewing MD ? EXAMINATION: ?? MM DIAGNOSTIC DIGITAL BREAST TOMOSYNTHESIS, RIGHT ? CLINICAL INFORMATION: ? Six-month follow-up for probably benign calcifications in the lateral ?? inferior right breast, posterior one third. ? 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 therapy. ? COMPARISON: ?? Mammography: 08/14/2023, 06/24/2023 (BI-RADS 0), 06/16/2022, 05/29/2021, ?? 05/22/2020. ? TECHNIQUE: ?? Digital breast tomosynthesis is performed in the following views: 2-D ?? spot magnification right CC and ML views x2. ? FINDINGS: ?? The breasts are heterogeneously dense, which may obscure small masses ?? (ACR BI-RADS breast composition Category c). ? No significant interval change in subtle calcifications in the lateral ?? inferior right breast, posterior one third, with no aggressive changes. ?? These remain probably benign, and additional six-month interval ?? follow-up recommended to assess for continued stability when the ?? patient is due for bilateral screening. ? No new suspicious findings seen. Post therapeutic changes again evident. ? MM/MM tomosynthesis diagnostic RT ?? IMPRESSION: ?? -There are no findings suspicious for malignancy right breast. ? -Stable grouped calcifications in the lateral inferior right breast, ?? posterior one third, with no aggressive changes. These remain probably ?? benign, and six-month interval follow-up magnification views are ?? recommended when the patient is due for bilateral screening. ? ASSESSMENT: ? BI-RADS BI-RADS 3 - Probably benign finding(s) - 6 month follow-up ?? suggested ? RECOMMENDATION: ?? 6 Month F/U ? Results were provided to the patient at time of visit by the ?? technologist. ? This patient's information was entered into a reminder system with a ?? target due date for their next mammogram. ? Electronically signed by: ??Molina Singh MD ??03/24/2024 02:39 PM EDT RP ? Dictated By: ?Molina Singh MD ? Signed By: ?<Electronically signed by Molina Singh MD in OV> ?03/24/24 1439 ? DD/ 1410 ? TD/TT: 03/24/24 1421 ? Sampler First: ? Procedure Note [place], Image - 03/24/2024 [facility] [address] [place] [address] Mammography Report Signed Patient: Mora [place] EMR#: [id number] 7 : 3Acct:[id number] Age/Sex: 73 / FADM Date: 03/24/24 Loc: HO.MAMMO Attending Dr: Lanny Vasquez MD Ordering Physician: Lanny Ewing MD Results: 3.6MProbably Benign Finding - Short 6 M F/U Suggested Date of Service: 03/24/24Follow Up: 6 Month F/U Procedure(s): MM tomosynthesis diagnostic RT Accession Number(s): [id number] cc: Lanny Ewing MD EXAMINATION: MM DIAGNOSTIC DIGITAL BREAST TOMOSYNTHESIS, RIGHT CLINICAL INFORMATION: Six-month follow-up for probably benign calcifications in the lateral inferior right breast, posterior one third. 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 COMPARISON: Mammography: 08/14/2023, 06/24/2023 (BI-RADS 0), 06/16/2022, 05/29/2021, 05/22/2020. TECHNIQUE: Digital breast tomosynthesis is performed in the following views: 2-D spot magnification right CC and ML views x2. FINDINGS: The breasts are heterogeneously dense, which may obscure small masses (ACR BI-RADS breast composition Category c). No significant interval change in subtle calcifications in the lateral inferior right breast, posterior one third, with no aggressive changes. These remain probably benign, and additional six-month interval follow-up recommended to assess for continued stability when the patient is due for bilateral screening. No new suspicious findings seen. Post therapeutic changes again evident. MM/MM tomosynthesis diagnostic RT IMPRESSION: -There are no findings suspicious for malignancy right breast. -Stable grouped calcifications in the lateral inferior right breast, posterior one third, with no aggressive changes. These remain probably benign, and six-month interval follow-up magnification views are recommended when the patient is due for bilateral screening. ASSESSMENT: BI-RADS BI-RADS 3 - Probably benign finding(s) - 6 month follow-up suggested RECOMMENDATION: 6 Month F/U Results were provided to the patient at time of visit by the technologist. This patient's information was entered into a reminder system with a target due date for their next mammogram. Electronically signed by: Molina Singh MD 03/24/2024 02:39 PM EDT Dictated By: Molina Singh MD Signed By: <Electronically signed by Molina Singh MD in OV> 03/24/24 1439 DD/ 1410 TD/TT: 03/24/24 1421 Sampler First: Lanny Vasquez MD IMG BI PROCEDURES Final Result * Hepatitis C Antibody with Reflex to HCV, RNA, Quantitative, Real-Time PCR (10/13/2023 10:30 AM EDT) Hepatitis C Antibody Nonreactive Nonreactive [facility] Comment:Antibodies to HCV no t detected; does not exclude early acuteHCV infection. Blood Venous blood specimen / Unknown 10/13/2023 10:30 AM EDT 10/13/2023 11:19 AM EDT Lanny Vasquez MD LAB BLOOD ORDERAB LES Final Result [facility] [address] [place] [phone] * Hm Colonoscopy (09/17/2018 1:13 PM EDT) Historical Provider HEALTH MAINTENANCE Final Result from Last 3 Months or Most Recently Relevant to Health Maintenance Insurance [address] [place] [id number] [facility]IC[facility] [address] [place] [address] [address] [place] [address] [address] [place] [address] Care Teams Mechanical Service Specialist Relationship Specialty Start Date End Date Lanny Ewing MD [address] [place] [address] PCP - General Internal Medicine 03/03/23
--- OUTSIDE RECORDS SUMMARY | 2024-06-28 12:38 | XMS_ITS | Encounter Summary ---
Author Organization [facility] Address [address] [place] [address] Phone Care Team Providers Care Corporate Services Manager Name Role Phone Lanny Roach Primary Care Provid er Encounter Details Date Type Department Care Team (Late Contact Info) Description 03/29/2024 Documentation Only [facility] [address] [place] [address] Mae Olsen [address] [place] [address] Social History Tobacco Use Types [...] [facility] [address] [place] [address] Tiara Barrientos MD [address] [place] [address] [place] [address] documented as of this encounter Visit Diagnoses Not on filedocumented in this encounter Care Teams Corporate Services Manager Relationship Specialty Start Date End Date Lanny Roach [address] [place] [address] PCP - General 03/10/24 documented as of this encounter
--- OUTSIDE RECORDS SUMMARY | 2024-06-28 12:38 | XMS_ITS | Encounter Summary ---
Author Organization [facility] Address [address] [place] [address] Phone Care Team Providers Care Extension Service Agent Name Role Phone Lanny Raoch Primary Care Provid er Encounter Details Date Type Department Care Team (Late Contact Info) Description 09/03/2023 Documentation Only [facility] [address] [place] [address] Mae Olsen [address] [place] [address] Social History Tobacco Use Types [...] Visit [facility] [address] [place] [address] Tiara Barrientos MD [address] [place] [address] [place] [address] documented as of this encounter Visit Diagnoses Not on filedocumented in this encounter Care Teams Extension Service Agent Relationship Specialty Start Date End Date Lanny Roach [address] [place] [address] PCP - General 03/10/24 documented as of this encounter
--- OUTSIDE RECORDS SUMMARY | 2024-06-28 12:38 | XMS_ITS | Encounter Summary ---
Author Organization [employer] Address [address] [place] [address] [address] [place] [address] Care Team Providers Care Head Of Digital Name Role Phone Lanny Ewing MD Primary Care Pro vider Reason for Visit * Reason Comments Med Refill Encounter Details Date Type Department Care Team ([facility] st Contact Info) Description 12/23/2023 Refill [facility] [address] [place] [address] Lanny Ewing MD [address] [place], [place] [phone] Social History Tobacco Use Types Packs/Day Years [...] Description 09/19/2024 2:30 PM EDT Medication Management [facility] [address] [place] [phone] documented as of this encounter Goals Goal [...] documented as of this encounter Care Teams Head Of Digital Relationship Specialty Start Date End Date Lanny Ewing MD [address] [place] [phone] PCP - General Internal Medicine 03/03/23 documented as of this encounter
--- OUTSIDE RECORDS SUMMARY | 2024-06-28 12:38 | XMS_ITS | Encounter Summary ---
Author Organization [facility] Address [address] [place] [address] Phone Care Team Providers Care Rf Manager Name Role Phone Lanny Roach Primary Care Provid er Encounter Details Date Type Department Care Team (Late Contact Info) Description 09/03/2023 Documentation Only [facility] [address] [place] [address] Mae Olsen [address] [place] [address] Social History Tobacco Use Types [...] Visit [facility] [address] [place] [address] Tiara Barrientos MD [address] [place] [address] [place] [address] documented as of this encounter Visit Diagnoses Not on filedocumented in this encounter Care Teams Rf Manager Relationship Specialty Start Date End Date Lanny Roach [address] [place] [address] PCP - General 03/10/24 documented as of this encounter
--- OUTSIDE RECORDS SUMMARY | 2024-06-28 12:38 | XMS_ITS | Encounter Summary ---
Author Organization [facility] Address [address] [place] [address] Phone Care Team Providers Care Abrasive Wheel Molder Name Role Phone Lanny Roach Primary Care Provid er Encounter Details Date Type Department Care Team (Late Contact Info) Description 09/03/2023 Documentation Only [facility] [address] [place] [address] Mae Olsen [address] [place] [address] Social History Tobacco Use Types [...] Visit [facility] [address] [place] [address] Tiara Barrientos MD [address] [place] [address] [place] [address] documented as of this encounter Visit Diagnoses Not on filedocumented in this encounter Care Teams Abrasive Wheel Molder Relationship Specialty Start Date End Date Lanny Roach [address] [place] [address] PCP - General 03/10/24 documented as of this encounter
--- OUTSIDE RECORDS SUMMARY | 2024-06-28 12:38 | XMS_ITS | Encounter Summary ---
Author Organization [facility] Address [address] [place] [address] Phone Care Team Providers Care Dam Worker Name Role Phone Lanny Roach Primary Care Provid er Encounter Details Date Type Department Care Team (Late Contact Info) Description 09/03/2023 Documentation Only [facility] [address] [place] [address] Mae Olsen [address] [place] [address] Social History Tobacco Use Types [...] Visit [facility] [address] [place] [address] Tiara Barrientos MD [address] [place] [address] [place] [address] documented as of this encounter Visit Diagnoses Not on filedocumented in this encounter Care Teams Dam Worker Relationship Specialty Start Date End Date Lanny Roach [address] [place] [address] PCP - General 03/10/24 documented as of this encounter
--- OUTSIDE RECORDS SUMMARY | 2024-06-28 12:38 | XMS_ITS | Encounter Summary ---
Author Organization [facility] Address [address] [place] [address] Phone Care Team Providers Care Cvt Tech Name Role Phone Lanny Roach Primary Care Provid er Encounter Details Date Type Department Care Team (Late Contact Info) Description 09/03/2023 Documentation Only [facility] [address] [place] [address] Mae Olsen [address] [place] [address] Social History Tobacco Use Types [...] Visit [facility] [address] [place] [address] Tiara Barrientos MD [address] [place] [address] [place] [address] documented as of this encounter Visit Diagnoses Not on filedocumented in this encounter Care Teams Cvt Tech Relationship Specialty Start Date End Date Lanny Roach [address] [place] [address] PCP - General 03/10/24 documented as of this encounter
--- OUTSIDE RECORDS SUMMARY | 2024-06-28 12:38 | XMS_ITS | Data Portability ---
Author Organization [facility], Ar in - [facility] Address [address] [place] [address] Care Team Providers [employer] Name Role Phone [facility] Referring Provider [phone] [facility] Referring Provider Assessment Encounter Date Assessment Date Assessment LastModified by Organization Details LastModified Time 11/04/2021 11/04/2021 I have reviewed and agree with the assessment and plan as documented by the flame hardener. I provided real-time medical direction for this encounter and was immediately available to provide additional phone-based assistance as needed. History as noted in EMR and by flame hardener. I would add / emphasize: Pt with hx of RAD seen for wheezing, non productive cough. AVSS, afebrile, and well appearing per report. PT has nebulizer but no medications for it. Improved with neb given in home and will rx additional doses. Rapid covid test negative. recommened increased neb utilization, close monitoring of sxs and follow up with primary care. [email or web address] Not available 12/23/2021 11:47:15 07/15/2023 07/15/2023 I provided real -time medical direction via phone for this encounter, and was available for additional phone based assistance as needed. I have reviewed and agree with the Assessment and Plan as documented by the Supervisor Plastics. We discussed the diagnostic uncertainty of home visits and the risk associated with this. The patient given the opportunity to ask questions. [email or web address] Not available 07/16/2023 00:57:16 Plan of Treatment Reminders Order Date Submit Date Provider Last Modified By Organization Details Last Modified Time Details Appointments None recorded. Lab rapid SARS CoV 2 Ag, QL IA, respiratory specimen 2023 024 [email or web address] [facility], [address] [place] [address], [phone], 17:07:00 rapid flu (A+B) 2023 024 [email or web address] 0 [facility], [address] [place], [address], 4 17:06:58 Referral None recorded. Procedures None recorded. Surgeries None recorded. Imaging None recorded. Medication Orders albuterol sulfate 2.5 mg/3 mL (0.083 %) solution for nebulizatio n 2021 022 SAADIA [facility][id number], [address] [place], [address], 2 20:21:27 Solu-Medrol (PF) 125 mg/2 mL solution for injection 2023 024 [email or web address] 0 [facility][id number], [address] [place] [address], [id number], 4 17:06:58 albuterol sulfate 2.5 mg/3 mL (0.083 %) solution for nebulizatio n 2023 024 [email or web address] 0 [facility][id number], [address] [place], [address], 4 17:06:58 ipratropium 0.5 mg-albutero l 3 mg (2.5 mg base)/3 mL nebulizatio n soln 2023 024 [email or web address] 0 [id number], [address] [place], [address], 4 17:06:58 azithromyci n 250 mg tablet 2023 024 [email or web address] 0 [facility][id number], [address] [place], [address], 4 01:00:49 Patient TargetsNo targets recorded. Patient InstructionsNo instructions recorded. Reason for Referral None Reported. Results Created Date Observation Date Name Description Value Unit Range Abnormal Flag Note LastModifiedBy Organization Detail LastModifiedTime 07/15/19 24 07/15/2023 rapid flu (A+B) Flu negati ve Not Available [facility] ed [address] [place] [address], [phone], 07/15/2023 17:05:34 07/15/19 24 07/15/2023 rapid SARS CoV 2 Ag, QL IA, respi rator y speci men rapid SARS CoV 2 Ag, QL IA, respiratory specimen negati ve Not Available [facility] ed [address] [place] [address], [phone], 07/15/2023 17:05:32 Result Notes None recorded. Medical Equipment None Reported. Allergies Allergen ID Allergen Name Allergen Category Reaction Reaction Severity Criticality Documentation Date Start Date Code Code System Note Provider Name and Address Organization Details Recorded Time 4595 aspirin medicatio n Not available Not available Not available 07/15/2023 1191 RxNorm Not Available [facility] - production 4 03:41:56 4596 latex environme nt,medica tion Not available Not available Not available 07/15/2023 89315 91 RxNorm Not Available [facility] - production 4 03:41:56 4597 nickel environme nt rash Not available Not available 07/15/2023 17366 29 RxNorm Laura Knapp MD [address] [place] [address],[address], [place], [phone] [place] [address] - [employer] 4 17:04:27 Medications Name Sig Start Date Stop Date Status Note LastModified by Organization Details LastModified Time blood pressure monitor [id number] USE TO CHECK BLOOD PRESSURE EVERY DAY DIRECTED active Not Available Not Available Not Available metformin 500 mg tablet TAKE 1 TABLET BY ORAL ROUTE IN THE MORNING AND 2 TABLETS IN THE EVENING WITH MEALS FOR DIABETES active Not Available Not Available No t Available ipratropium 0.5 mg-albuterol 3 mg (2.5 mg base)/3 mL nebulization soln Inhale 3 mL by nebulizatio n route. 2023 active Not Available Not Available Not Avai lable albuterol sulfate 2.5 mg/3 mL (0.083 %) solution for nebulization Inhale 3 mL by nebulizatio n route as needed. 2023 active Not Available Not Available Not Avai lable citalopram 40 mg tablet TAKE 1 TABLET BY MOUTH EVERY DAY active Not Available Not Available No t Available lisinopril 20 mg-hydrochlo rothiazide 12.5 mg tablet TAKE 1 TABLET BY MOUTH EVERY DAY active Not Available Not Available No t Available azithromycin 250 mg tablet Take 2 tablets by oral route. 2023 active Not Available Not Available Not Avai lable prednisone 5 mg tablet TAKE 1 TABLET BY MOUTH EVERY DAY active Not Available Not Available No t Available cromolyn 4 % eye drops INSTILL 1 DROP IN AFFECTED EYE 4 TIMES DAY FOR 90 DAYS OPHTHALMIC FOUR TIMES A DAY active Not Available Not Available No t Available triamcinolon e acetonide 0.1 % topical cream APPLY THIN COAT TO AFFECTED AREA TWICE A DAY active Not Available Not Available No t Available simvastatin 20 mg tablet TAKE 1 TABLET BY MOUTH EVERY DAY IN THE EVENING active Not Available Not Available No t Available gabapentin 300 mg capsule TAKE 1 CAPSULE BY MOUTH THREE TIMES A DAY active Not Available Not Available Not Available montelukast 10 mg tablet TAKE 1 TABLET BY MOUTH EVERY DAY IN THE EVENING ORALLY ONCE A DAY 90 DAYS active Not Available Not Available No t Available lorazepam 1 mg tablet TAKE 1 TABLET BY MOUTH 30 MINUTES PRIOR TO TAKEOFF FOR ANXIETY RELATED TO FLIGHTS active Not Available Not Available No t Available azelastine 137 mcg (0.1 %) nasal spray USE 1 SPRAY IN EACH NOSTRIL TWICE DAILY 30 active Not Available Not Available No t Available fluticasone propionate 50 mcg/actuatio n nasal spray,suspen jamal USE 1-2 SPRAYS IN EACH NOSTRIL EVERY DAY 90 active Not Available Not Available No t Available clotrimazole 1 % topical cream APPLY TO AFFECTED AREA TWICE A DAY IN THE MORNING AND IN THE EVENING active Not Available Not Available No t Available loratadine 10 mg tablet TAKE 1 TABLET BY MOUTH EVERY DAY active Not Available Not Available No t Available Ventolin HFA 90 mcg/actuatio n aerosol inhaler INHALE 2 PUFFS BY MOUTH EVERY 4 HOURS NEEDED active Not Available Not Available No t Available Vitamin D3 25 mcg (1,000 unit) capsule TAKE 1 CAPSULE BY MOUTH EVERY DAY active Not Available Not Available No t Available Flovent HFA 110 mcg/actuatio n aerosol inhaler INHALE 2 PUFF BY INHALATION ROUTE 2 TIMES EVERY DAY TO REPLACE 220 MCG INHALATION active Not Available Not Available N ot Available Humira Pen 40 mg/0.8 mL subcutaneous kit active Not Available Not Available Not Available ferrous gluconate 324 mg (38 mg iron) tablet TAKE 1 TABLET BY MOUTH EVERY OTHER DAY active Not Available Not Available No t Available dexlansopraz ole 60 mg capsule,biph ase delayed release TAKE 1 CAPSULE BY MOUTH EVERY DAY FOR 8 WEEKS active Not Available Not Available No t Available Solu-Medrol (PF) 125 mg/2 mL solution for injection Take 125 mg by injection route. 2023 active Not Available Not Available Not Avai lable Farxiga 5 mg tablet TAKE 1 TABLET BY MOUTH EVERY DAY active Not Available Not Available No t Available Incruse Ellipta 62.5 mcg/actuatio n powder for inhalation INHALE 1 PUFF INTO THE LUNGS EVERY DAY FOR 30 DAYS INHALATION ONCE A DAY 30 DAYS active Not Available Not Available No t Available Orencia ClickJect 125 mg/mL subcutaneous auto-injecto r active Not Available Not Available Not Available Kevzara 200 mg/1.14 mL subcutaneous pen injector active Not Available Not Available Not Available Wixela Inhub 500 mcg-50 mcg/dose powder for inhalation INHALE 1 PUFF INTO THE LUNGS TWICE A DAY FOR 30 DAYS active Not Available Not Available Not Available Vitals Date Recorded Body weight Respiratory rate Oxygen saturation Oxygen saturation in Arterial blood by Pulse oximetry Heart rate Body height Body temperature Systolic blood pressure Diastolic blood pressure Provider Name and Address Organization Details Last Updated DateTime 2 79604.8 08 g 18 /min 96 % 96 % 70 /min 162.56 cm 98.2 [degF] 112 mm[Hg] 76 mm[Hg] Not Available [facility] production 2 20:17:52 Date Recorded Body height Oxygen saturation Oxygen saturation in Arterial blood by Pulse oximetry Body temperature Body weight Respiratory rate Heart rate Systolic blood pressure Diastolic blood pressure Provider Name and Address Organization Details Last Updated DateTime 4 165.1 cm 97 % 97 % 97.6 [degF] 78233.4 g 20 /min 84 /min 134 mm[Hg] 76 mm[Hg] Not Available [facility] - production 4 16:48:57 Social History None recorded. Functional Status None recorded. Mental Status None recorded. Family History Nothing Reported. Medical History No medical history recorded. Gynecological HistoryNo gynecological history recorded. Obstetrics History GPAL:G 0 P 0 0 0 0 Past Encounters Encounter ID Performer Location Encounter Start Date Encounter Closed Date Diagnosis/Indication Diagnosis SNOMED-CT Code Diagnosis ICD10 Code Diagnosis Note [id number] Joseph Veliz MD [facility] - [facility] [phone] 11/04/2021 20:17:49 01/28/2022 12:08:20 Wheezing 72490972 R06.2 [id number] Laura Knapp MD [facility] - [facility] [address] [place] [phone] 07/15/2023 16:48:54 07/16/2023 09:24:58 Acute exacerbation of chronic obstructive pulmonary disease [id number] J44.1 Given DuoNeb and had increased aeration but more diffuse wheezing so I ordered an albuterol. I was hoping, given an initial O2 sat of 97% room air to keep her home. After the second nebulizer and steroids she felt she was breathing more easily. I was going to treat with azithromyc in and a prednisone taper but as a precaution I asked the medic to get an ambulatory saturation . Once up she reported she was feeling slightly lightheade d and jittery and was having more dyspnea on exertion and her oxygen saturation dropped to 87%-wheezi ng increased on ambulation and the patient was feeling very fatigued. I advised her since she has no home O2 it was not safe to keep her at home and she needed to go to the emergency room. She agreed and report called to [facility]. The patient then declined ambulance. The medic and I advised against that given her hypoxia, but they insisted on being driven by family. Explained include respirator y arrest, worsening hypoxia -patient verbalized understand ing of risk, but stated they are only a few minutes from the hospital and insisted on being driven by cough Health Concerns Section Related Observation LastModified by Organization Saleem ling LastModified Time None Recorded Concern Status LastModified by Organization Details LastModified Time None Recorded Advance Directives Directive None Recorded Payers Encounter Date Sequence Insurance Name Policy Number Policy Thompson Covered Member ID Thompson Member ID Guarantor Name 11/04/2021 1 [facility] - DOS PRIOR TO 2022 - DUAL ELIGIBLE (MEDICARE REPLACEMENT/ADV ANTAGE - HMO) Mora Manrique [id number] Mora Manrique 07/15/2023 1 [facility] - DOS ON OR AFTER 2022 - DUAL ELIGIBLE - SNF OPTIONS AND ONE CARE (MEDICARE REPLACEMENT/ADV ANTAGE - HMO) Mora Manrique [id number] Mora Manrique Notes Date Note Type Note Provider Name and Address Organization Details Recorded Time 11/04/2021 text/html HPI: Patient reporting having productive cough, congestion, body aches and intermittent wheezing since Thursday. Pt using inhalers of Flovent and Pro-Air with mild relief. Does not have nebulizer medication at home. Denies any chest pain or tightness but is having wheezing and SOB on exertion. Pt heard speaking in phrases. Per pt did home COVID-19 yesterday with negative result. Needs nebulizer treatment for symptoms. .................. .................. .................. .................. .................. .................. .................. ............... CRC Nursing Assessment: Comments: CRC RN did not need further information to process visit .................. .................. .................. .................. .................. .................. .................. ............... Supervisor Plastics Note: Sent to a call for a pt complaining of cough, congestion, body aches and intermittent wheezing. SC8 arrives on scene, pt is alert and oriented. Airway is patent. Pt complains of non-productive cough, congestion, body aches, intermittent wheezing and fever starting Thursday. Pt states fever lasted Thursday-Thursday. Pt is sob increasing with exertion. Pt denies headache, dizziness, cp, n/v/d, abdominal pain or loc. Pt performed rapid COVID test yesterday which was negative. BP:112/76, P:70, RR:18, SpO2:96% RA, T:98.2; Lung sounds: wheezing bilaterally, rhonchi bilaterally in upper lobes. Pt has a nebulizer at home, but doesn't have any albuterol solution for nebulizer. [facility] orders rapid COVID test, nebulized treatment, and will send script to pt's pharmacy for albuterol solution for nebulizer. COVID test: negative; Pt improves after nebulized treatment. Pt advised to use nebulizer as needed q4hrs otherwise seek medical attention. Red flags discussed. Pt has no further questions. .................. .................. .................. .................. .................. .................. .................. ............... Disposition: Fulfilled Joseph Veliz MD [address] [facility],[address], [place], [address], [employer] 12/23/2021 11:47:23 07/15/2023 text/html HPI: HX: CKD,RA. Patient with three week history of increased shortness of breath and asthma symptoms. Has SOB at rest no chest pain. Using nebulizer in the home. Seeking Prednisone. .................. .................. .................. .................. .................. .................. .................. ............... CRC Nurse Triage Notes (Malorie Strickland): Comments: CRC RN DID NOT NEED FURTHER INFO .................. .................. .................. .................. .................. .................. .................. ............... Supervisor Plastics Note From Ronny Camacho: Dispatched to the call address for the female with asthma/COPD who believes she needs Prednisone. Pt states she has been having increased SoB over the last week. She sometimes needs to take prednisone, the last time being in March. Pt states she has been hospitalized before for this issue. Pt states she has been using her nebulizer 3x daily with short term relief. Pt was found opening door, CAOx4, airway open and patent, breathing labored, able to speak in 4-5 word sentences but winded afterwards. Lung sounds initially very tight with minor wheezing, post 1st treatment airway was more open and lots of E. Wheezing could be heard throughout, post 2nd treatment wheezing present but diminished. Skin PWD with good turgor, abd soft non tender/distended, pupils PERRL, -JVD, -HEENT, +CMSx4. Pt was given 125mg Solumedrol IM and 500mg Azithromycin PO and a total of 5mg Albuterol and 0.5 Atrovent. Pt sating low 90s on RA while sitting but dropping to low/upper 80s when ambulating. Pt stated she felt better but was still having some trouble breathing. [facility] consulted several times throughout visit. Pt was advised that she should seek longer treatment and evaluation in the ED. Pt agreed to go to ED as long as family could take her. Family agreed to take Pt to the ED. ALL times are approx. .................. .................. .................. .................. .................. .................. .................. ............... Disposition: Fulfilled Laura Knapp MD [address] [place] [address],[address] [facility], [place], [phone], [employer] 07/16/2023 01:10:07 OBGyn Episode No OBEpisode recorded.
--- OUTSIDE RECORDS SUMMARY | 2024-06-28 12:39 | XMS_ITS | Encounter Summary ---
Author Organization [employer] Address [address] [place] [address] [address] [place] [address] Care Team Providers Care Shipfitter Name Role Phone Lanny Ewing MD Primary Care Pro vider Reason for Visit * Reason Comments Med Refill Encounter Details Date Type Department Care Team ([facility] st Contact Info) Description 06/21/2024 Refill [facility] [address] [place], [place] [phone] Lanny Ewing MD [address] [place] [address] Social History Tobacco Use Types Packs/Day Years [...] your housing situation today? I have maryam amauri 07/20/[address] you li [...] Description 09/19/2024 2:30 PM EDT Medication Management [facility] [address] [place] [phone] documented as of this encounter Goals Goal [...] documented as of this encounter Care Teams Shipfitter Relationship Specialty Start Date End Date Lanny Ewing MD [address] [place] [address] PCP - General Internal Medicine 03/03/23 documented as of this encounter
--- OUTSIDE RECORDS SUMMARY | 2024-06-28 12:39 | XMS_ITS | Encounter Summary ---
Author Organization [employer] Address [address] [place] [address] [address] [place] [address] Care Team Providers Care Sizing End Bander Name Role Phone Lanny Ewing MD Primary Care Pro vider Reason for Visit * Reason Comments Med Refill Encounter Details Date Type Department Care Team ([facility] st Contact Info) Description 06/11/2024 Refill [facility] [address] [place] [address] Lanny Ewing MD [address] [place], [place] [phone] Insomnia, unspecified type Social History Tobacco Use Types Packs/Day Years [...] Description 09/19/2024 2:30 PM EDT Medication Management [facility] [address] [place] [id number] documented as of this encounter Goals Goal Patient Goal Type Associated Problems Recent Progress Patient-Stated? Author Blood Pressure < 140/90 Blood Pressure 115/64(2023 2:32 PM EST) No Jessica Evans Hemoglobin A1c < 7 Result Component 6.8( 10:49 AM EST) No Jessica Evans documented as of this encounter Visit Diagnoses Diagnosis Insomnia, unspecified type documented in this encounter Additional Health Concerns Assessment Noted Time PHQ-9 Depression Total Score: 7 09/11/19 24 2:05 PM EDT documented as of this encounter Care Teams Sizing End Bander Relationship Specialty Start Date End Date Lanny Ewing MD [address] [place] [address] PCP - General Internal Medicine 03/03/23 documented as of this encounter
== END 2024-06-28 11:39 | disposition home or self-care (01) ==
LOC: HO.MAMMO 11:38
PROVIDERS: PCP Student in an Organized Health Care Education/Training Program; Visit Provider Student in an Organized Health Care Education/Training Program
DX: R92.1 Mammographic calcification found on diagnostic imaging of breast (principal)
CPT/HCPCS: 77062; 77066

== ENCOUNTER → 2024-06-28 11:45 | Outpatient (BNV) | payer MEDICARE, SELFPAY | PROVIDERS: PCP Student in an Organized Health Care Education/Training Program; Visit Provider Internal Medicine | DX: R92.1 Mammographic calcification found on diagnostic imaging of breast (principal) | CPT/HCPCS: 77066; G0279 ==

== ENCOUNTER 2024-08-26 15:58 | Outpatient (AMB) | payer MEDICARE, MEDICAID, SELFPAY ==
[2024-08-26 16:05] VITALS: BP 126/74; PULSE 81; O2SAT 95; BMI 33.0
--- NOTE | 2024-08-26 16:05 | A.OFFVIS_ITS ---
Vital Signs 08/26/24 16:05 Height 5 ft 5 in Weight 198 lb 3.129 oz BMI 33.0 BP 126/74 Blood Pressure Location Lt brachial Position Sitting Pulse 81 Pulse Source Pulse Oximeter Pulse Oximetry (%) 95 Oxygen Delivery Method Room Air Intake Visit Reasons: Gout/OA Intake Note: Patient last seen by Doctor Aleyda Wade on 03/04/24. Presents today for Gout/OA follow up and test results. Allergies latex [LATEX] Allergy (Intermediate, Verified 08/26/24 16:08) BLISTERS abatacept [From Orencia] Allergy (Unknown, Verified 08/26/24 16:08) Itching adalimumab [From Humira] Allergy (Verified 08/26/24 16:08) dizziness aspirin Adverse Reaction (Intermediate, Verified 08/26/24 16:08) abdominal pain Medication List - Last Reconciled 08/26/24 by Aleyda Wade MD albuterol sulfate 2.5 mg inhalation Q4H PRN albuterol sulfate 90 mcg/actuation 2 puffs inhalation Q4H PRN allopurinol 300 mg PO DAILY 90 days atorvastatin 20 mg PO DAILY azelastine 1 spray intranasal BID PRN blood sugar diagnostic (FreeStyle Lite Strips) As directed citalopram 40 mg PO DAILY colchicine 0.6 mg PO DAILY PRN dapagliflozin propanediol (Farxiga) 5 mg PO DAILY dexlansoprazole 60 mg PO QAM ferrous gluconate 324 mg PO Q48H gabapentin 300 mg PO TID 90 days hydrochlorothiazide 12.5 mg PO DAILY loratadine (Allergy Relief (loratadine)) 10 mg PO DAILY melatonin 10 mg PO BEDTIME PRN montelukast 10 mg PO BEDTIME semaglutide (Ozempic) 1 mg subcut QWEEK simvastatin 20 mg PO BEDTIME umeclidinium-vilanterol 62.5-25 mcg/actuation (Anoro Ellipta) 1 ea inhalation DAILY zolpidem 5 mg PO BEDTIME PRN HPI Comments Details: Patient is a 73 y.o. female with asthma, diabetes (A1C ), HTN, HLD, depression, polyarticular OA and crystal proven non erosive gout here today for follow up Interval History: Last seen 03/04/2024 with me. At that time patient was stable and no changes were made to her medications. Was having some low back pain and I recommended stretches as well as Salonpas Today, Low back pain doing better with conservative measures from last visit AM stiffness about 30 mins Denies any gout flares Rheumatologic History: Presented over 5 years ago with joint pain. There was no evidence of synovitis but serologies came back with positive CCP. She was treated as seropositive rheumatoid arthritis and had been on several regimens. However these treatment options were met with little to no response to her joint pain and so the diagnosis was brought into question. She has been off of her DMARDs since 2021. She has not had any flare-ups of her joints apart from the monoarticular flares of gout. Her x-rays did show erosions which could be attributed to crystal disease versus rheumatoid arthritis. 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 Medication History: Plaquenil: 06/2016-11/2019 Arava:08/2019-11/2019 Methotrexate: 3912-0018-ht relief of symptoms Humira: August 2020-self discontinued due to fatigue Prednisone: 06/2014-12/2019 GI upset Enbrel: Considered but not started due to latex allergy Orencia: 05/2021- 07/2021 Full body itching, no improvement in symptoms Kevzara: 07/2021-December 2021 Febuxostat Allopurinol started due to insurance issues with febuxostat Current Rheumatology Medication(s): Allopurinol 300mg Colchicine 0.6mg prn Gabapentin 300mg tid PFSH Medical History Back pain Uncontrolled type 2 diabetes mellitus with hyperglycemia Chronic lung disease Acute and chronic respiratory failure with hypoxia HTN (hypertension), benign Smoker History of Helicobacter pylori infection History of smoking at least 1 pack per day for at least 30 years Hypoxemia Pneumonia Osteoarthritis of both feet CKD (chronic kidney disease), stage III Lymphedema COVID-19 vaccine administered Hx of cardiac murmur Depression Anemia Hx of osteopenia Hx of gout Diabetes Elevated cholesterol HTN (hypertension) COPD (chronic obstructive pulmonary disease) GERD (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 reflux disease) [facility] systemic steroid user Seropositive rheumatoid arthritis Asthma History of right breast cancer Surgical History Hx of hand surgery H/O cystoscopy Hx of thumb surgery H/O colonoscopy H/O local excision of skin lesion History of bilateral carpal tunnel release S/P lumpectomy, right breast History of esophagogastroduodenoscopy (EGD) Family History Father Throat cancer Mother Asthma Osteoarthritis Sister Breast cancer Social History Household Members: None Housing: House Do you presently have visiting nurse or other home services: No Unable to assess alcohol history related to: Unknown Alcohol intake: never Patient Tobacco Use Status: Former Tobacco user Tobacco use type: Cigarette e-Cigarette/Vaping Use: Never Used service: No Current occupational status: retired 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 Female Reproductive History Menstrual Age of Menarche: 14 Review of Systems Const Details: Review of Systems Constitutional: Denies fever, chills, weight loss ENT: Denies vision changes, eye pain or eye redness, dental caries, dry mouth GI: Denies nausea, vomiting, diarrhea, abdominal pain, change in BM Pulm: Denies SOB, MONTE, hemoptysis, wheezing Cards: Denies chest pain, palpitations Skin: Denies Raynaud's, rash, nail changes, photosensitivity, WALL SCRAPER: Denies headaches, weakness, paresthesias, recurrent falls MSK: as per HPI All other systems reviewed and are unremarkable except noted above Physical Exam Vital Signs: BMI result Body Mass Index 33.0 Vital signs reviewed Physical Examination CONSTITUITIONAL Patient alert and cooperative. Well appearing and in no apparent painful distress HEENT Conjunctiva and sclera clear. ?Pupils equal round and reactive to light. ?No lymphadenopathy. ? CHEST/RESPIRATORY SYSTEM Normal respiratory effort and able to speak in complete sentences. ?Clear to auscultation bilaterally. ?No crackles, rales, rhonchi, wheezes heard. CARDIAC SYSTEM Regular rate and rhythm. ?S1 and S2 heard no murmurs. ?Radial pulses intact bilaterally MSK Hands: ?Good car dropper strength bilaterally. No deformities noted. ?No synovitis noted to the MCPs, PIPs or DIPs. ?No tenderness to palpation of these joints. Wrists: ?Full range of motion at the wrists without pain. ?No tenderness to palpation or synovitis noted to the wrists. Elbows: Full range of motion without pain. No tenderness, weakness, swelling, increased warmth or erythema. Shoulders: Full range of motion without pain. No tenderness, weakness, swelling, increased warmth or erythema. Hips: Full range of motion without pain. Hip bursa: No tenderness to palpation Knees: ?Full range of motion. ?No tenderness, swelling, increased warmth or erythema.?No effusion or crepitations Ankles: Full range of motion. ?No tenderness, swelling, increased warmth or erythema.? Feet: ?Negative squeeze test. ?No tenderness to palpation or swelling of the MTPs. Tender points:?No tenderness to palpation of the bilateral trapezius, supraspinatus, greater trochanters, anterior costochondral junctions, bilateral gluteal areas, bilateral suboccipital muscle insertions SKIN Skin intact without rashes. Results Reviewed Results Reviewed: Laboratory Tests 04/04/24 04/04/24 10:49 11:24 WBC 7.7 RBC 4.49 Hgb 13.1 Hct 40.3 Plt Count 283 ESR 14 Sodium 140 Potassium 4.7 Chloride 112 H Carbon Dioxide 20 L BUN 27 H Creatinine 1.11 Calcium 9.7 Total Bilirubin 0.3 AST 25 ALT 29 Alkaline Phosphatase 112 C-Reactive Protein 1.07 H 04/04/24 10:49 Uric Acid 3.3 Assessment & Plan Assessment & Plan (1) Gout: Comment: Allopurinol: December 2021 - March 2022 Febuxostat: March 2022 - February 2024 (Insurance Denied) Allopurinol: February 2024 - Code(s): M10.9 - Gout, unspecified Category: Medical Qualifiers: Gout site: multiple sites Gout etiology: due to renal impairment Chronicity: chronic Presence of tophus: without tophus Qualified Code(s): M1A.39X0 - Chronic gout due to renal impairment, multiple sites, without tophus (tophi) Plan: #Non crystal proven erosive gout Patient is a 74-year-old female with non crystal proven erosive gout here today for follow up. Patient's uric acid is at goal. Febuxostat switch to a allopurinol due to insurance issues and she is tolerating this change. Colchicine given for breakthrough flares. Plan - Allopurinol 300mg daily - Colchicine 0.6mg prn for flares - RTC 6 months - Labs before visit: CBC, CMP, ESR, CRP, UA (2) Osteoarthritis of hands, bilateral: Code(s): M19.041 - Primary osteoarthritis, right hand; M19.042 - Primary osteoarthritis, left hand Category: Medical Qualifiers: Osteoarthritis type: primary Qualified Code(s): M19.041 - Primary osteoarthritis, right hand; M19.042 - Primary osteoarthritis, left hand Plan: #Hand OA Bilateral hand OA with 1st [facility]MC involvement. Recommended topical diclofenac. Gabapentin refilled (3) Osteoarthritis of right knee: Code(s): M17.11 - Unilateral primary osteoarthritis, right knee Category: Medical Qualifiers: Osteoarthritis type: primary Qualified Code(s): M17.11 - Unilateral primary osteoarthritis, right knee Plan: #Knee OA Bilateral knee OA. Recommended topical diclofenac. Continue gabapentin. (4) Seropositive rheumatoid arthritis: Comment: Plaquenil: 06/2016-11/2019 Arava:08/2019-11/2019 Methotrexate: 3557-5064-or relief of symptoms Humira: August 2020-self discontinued due to fatigue Prednisone: 06/2014-12/2019 GI upset Enbrel: Considered but not started due to latex allergy Orencia: 05/2021- 07/2021 Full body itching, no improvement in symptoms Kevzara: 07/2021-December 2021. No synovitis seen in 2022 Code(s): M05.9 - Rheumatoid arthritis with rheumatoid factor, unspecified Category: Medical Plan: #?Inflammatory arthritis Patient had a previous diagnosis of seropositive rheumatoid arthritis based on positive CCP and polyarticular joint pain. She was on several regimen which did not improve her pain. The diagnosis was called into question and she may have had crystal disease related inflammatory arthritis. She is currently stable from that point. I would still check X this at next visit. As well as serologies. No further immunosuppression at this time. (5) Back pain: Code(s): M54.9 - Dorsalgia, unspecified Category: Medical Qualifiers: Back pain location: low back pain Chronicity: chronic Back pain laterality: midline Sciatica presence: without sciatica Qualified Code(s): M54.50 - Low back pain, unspecified; G89.29 - Other chronic pain Plan: #Back pain Low back pain improved with exercises and Salonpas Plan I spent 25 minutes reviewing the record and labs, seeing the patient, discussing the treatment plan and documenting in the medical record Medications: Refilled allopurinol 300 mg PO DAILY 90 days 90 tabs 1RF M1A.39X0 - Chronic gout due to renal impairment, multiple sites, without tophus (tophi) gabapentin 300 mg PO TID 90 days 270 caps 2RF M79.7 - Fibromyalgia Coding Level of Care Code Est Pt Level 3 (18696) Complex EM visit Add On G2211 Diagnoses Chronic gout due to renal impairment of multiple sites without tophus M1A.39X0 Gout site: multiple sites Gout etiology: due to renal impairment Chronicity: chronic Presence of tophus: without tophus Primary osteoarthritis of both hands M19.041; M19.042 Osteoarthritis type: primary Primary osteoarthritis of right knee M17.11 Osteoarthritis type: primary Seropositive rheumatoid arthritis M05.9 Chronic midline low back pain without sciatica M54.50; G89.29 Back pain location: low back pain Chronicity: chronic Back pain laterality: midline Sciatica presence: without sciatica
--- OUTSIDE RECORDS SUMMARY | 2024-08-26 16:57 | XMS_ITS | Encounter Summary ---
Author Organization [facility] Address [address] [place] [address] Phone Care Team Providers Care Cutter Operator Brick Name Role Phone Lanny Roach Primary Care Provid er Encounter Details Date Type Department Care Team (Late Contact Info) Description 09/03/2023 Documentation Only [facility] [address] [place] [address] Mae Olsen [address] [place] [address] Social History Tobacco Use Types [...] Visit [facility] [address] [place] [address] Tiara Barrientos MD [address] [place] [address] [place] [address] documented as of this encounter Visit Diagnoses Not on filedocumented in this encounter Care Teams Cutter Operator Brick Relationship Specialty Start Date End Date Lanny Roach [address] [place] [address] PCP - General 03/10/24 documented as of this encounter
--- OUTSIDE RECORDS SUMMARY | 2024-08-26 16:57 | XMS_ITS | Encounter Summary ---
Author Organization [facility] Address [address] [place] [address] Phone Care Team Providers Care Busher Helper Name Role Phone Lanny Roach Primary Care Provid er Encounter Details Date Type Department Care Team (Late Contact Info) Description 09/03/2023 Documentation Only [facility] [address] [place] [address] Mae Olsen [address] [place] [address] Social History Tobacco Use Types [...] Visit [facility] [address] [place] [address] Tiara Barrientos MD [address] [place] [address] [place] [address] documented as of this encounter Visit Diagnoses Not on filedocumented in this encounter Care Teams Busher Helper Relationship Specialty Start Date End Date Lanny Roach [address] [place] [address] PCP - General 03/10/24 documented as of this encounter
--- OUTSIDE RECORDS SUMMARY | 2024-08-26 16:57 | XMS_ITS | Encounter Summary ---
Author Organization [facility] Address [address] [place] [address] Phone Care Team Providers Care Electric Locomotive Crane Operator Name Role Phone Lanny Roach Primary Care Provid er Encounter Details Date Type Department Care Team (Late Contact Info) Description 09/03/2023 Documentation Only [facility] [address] [place] [address] Mae Olsen [address] [place] [address] Social History Tobacco Use Types [...] [facility] [address] [place] [address] Tiara Barrientos MD [address] [place] [address] [place] [address] documented as of this encounter Visit Diagnoses Not on filedocumented in this encounter Care Teams Electric Locomotive Crane Operator Relationship Specialty Start Date End Date Lanny Roach [address] [place] [address] PCP - General 03/10/24 documented as of this encounter
--- OUTSIDE RECORDS SUMMARY | 2024-08-26 16:57 | XMS_ITS | Encounter Summary ---
Author Organization [employer] Address [address] [place] [address] [address] [place] [address] Care Team Providers Care Bioprocess Engineer Name Role Phone Lanny Ewing MD Primary Care Pro vider Reason for Visit * Reason Comments Med Refill Encounter Details Date Type Department Care Team ([facility] st Contact Info) Description 12/23/2023 Refill [facility] [address] [place] [address] Lanny Ewing MD [address] [place], [place] [phone] Social History Tobacco Use Types Packs/Day Years [...] Care Team (Late st Contact Info) Description 09/16/2024 10:15 AM EDT Office Visit [address] [address] Lanny Ewing MD [address] [place] [address] 09/19/2024 2:30 PM EDT Medication Management [address] [address] documented as of this encounter Goals Goal [...] documented as of this encounter Care Teams Bioprocess Engineer Relationship Specialty Start Date End Date Lanny Ewing MD [address] [place] [address] PCP - General Internal Medicine 03/03/23 documented as of this encounter
--- OUTSIDE RECORDS SUMMARY | 2024-08-26 16:57 | XMS_ITS | Encounter Summary ---
Author Organization [facility] Address [address] [place] [address] Phone Care Team Providers Care Package Checker Name Role Phone Lanny Roach Primary Care Provid er Encounter Details Date Type Department Care Team (Late Contact Info) Description 09/03/2023 Documentation Only [facility] [address] [place] [address] Mae Olsen [address] [place] [address] Social History Tobacco Use Types [...] Visit [facility] [address] [place] [address] Tiara Barrientos MD [address] [place] [address] [place] [address] documented as of this encounter Visit Diagnoses Not on filedocumented in this encounter Care Teams Package Checker Relationship Specialty Start Date End Date Lanny Roach [address] [place] [address] PCP - General 03/10/24 documented as of this encounter
--- OUTSIDE RECORDS SUMMARY | 2024-08-26 16:57 | XMS_ITS | Encounter Summary ---
Author Organization [facility] Address [address] [place] [address] Phone Care Team Providers Care Mirror Installer Name Role Phone Lanny Roach Primary Care Provid er Encounter Details Date Type Department Care Team (Late Contact Info) Description 09/03/2023 Documentation Only [facility] [address] [place] [address] Mae Olsen [address] [place] [address] Social History Tobacco Use Types [...] [facility] [address] [place] [address] Tiara Barrientos MD [address] [place] [address] [place] [address] documented as of this encounter Visit Diagnoses Not on filedocumented in this encounter Care Teams Mirror Installer Relationship Specialty Start Date End Date Lanny Roach [address] [place] [address] PCP - General 03/10/24 documented as of this encounter
--- OUTSIDE RECORDS SUMMARY | 2024-08-26 16:57 | XMS_ITS | Encounter Summary ---
Author Organization [facility] Address [address] [place] [address] Phone Care Team Providers Care Product Safety Officer Name Role Phone Lanny Roach Primary Care Provid er Encounter Details Date Type Department Care Team (Late Contact Info) Description 09/03/2023 Documentation Only [facility] [address] [place] [address] Mae Olsen [address] [place] [address] Social History Tobacco Use Types [...] Visit [facility] [address] [place] [address] Tiara Barrientos MD [address] [place] [address] [place] [address] documented as of this encounter Visit Diagnoses Not on filedocumented in this encounter Care Teams Product Safety Officer Relationship Specialty Start Date End Date Lanny Roach [address] [place] [address] PCP - General 03/10/24 documented as of this encounter
--- OUTSIDE RECORDS SUMMARY | 2024-08-26 16:57 | XMS_ITS | Encounter Summary ---
Author Organization [facility] Address [address] [place] [address] Phone Care Team Providers Care Skid Worker Name Role Phone Lanny Roach Primary Care Provid er Encounter Details Date Type Department Care Team (Late Contact Info) Description 09/03/2023 Documentation Only [facility] [address] [place] [address] Mae Olsen [address] [place] [address] Social History Tobacco Use Types [...] Visit [facility] [address] [place] [address] Tiara Barrientos MD [address] [place] [address] [place] [address] documented as of this encounter Visit Diagnoses Not on filedocumented in this encounter Care Teams Skid Worker Relationship Specialty Start Date End Date Lanny Roach [address] [place] [address] PCP - General 03/10/24 documented as of this encounter
--- OUTSIDE RECORDS SUMMARY | 2024-08-26 16:57 | XMS_ITS | Encounter Summary ---
Author Organization [facility] Address [address] [place] [address] Phone Care Team Providers Care Lumber Carrier Operator Name Role Phone Lanny Roach Primary Care Provid er Encounter Details Date Type Department Care Team (Late Contact Info) Description 09/03/2023 Documentation Only [facility] [address] [place] [address] Mae Olsen [address] [place] [address] Social History Tobacco Use Types [...] Visit [facility] [address] [place] [address] Tiara Barrientos MD [address] [place] [address] [place] [address] documented as of this encounter Visit Diagnoses Not on filedocumented in this encounter Care Teams Lumber Carrier Operator Relationship Specialty Start Date End Date Lanny Roach [address] [place] [address] PCP - General 03/10/24 documented as of this encounter
--- OUTSIDE RECORDS SUMMARY | 2024-08-26 16:57 | XMS_ITS | Encounter Summary ---
Author Organization [facility] Address [address] [place] [address] Phone Care Team Providers Care Veneer Grader Name Role Phone Lanny Roach Primary Care Provid er Encounter Details Date Type Department Care Team (Late Contact Info) Description 09/03/2023 Documentation Only [facility] [address] [place] [address] Mae Olsen [address] [place] [address] Social History Tobacco Use Types [...] Visit [facility] [address] [place] [address] Tiara Barrientos MD [address] [place] [address] [place] [address] documented as of this encounter Visit Diagnoses Not on filedocumented in this encounter Care Teams Veneer Grader Relationship Specialty Start Date End Date Lanny Roach [address] [place] [address] PCP - General 03/10/24 documented as of this encounter
--- OUTSIDE RECORDS SUMMARY | 2024-08-26 16:57 | XMS_ITS | Encounter Summary ---
Author Organization [facility] Address [address] [place] [address] Phone Care Team Providers Care Metal Casket Maker Name Role Phone Lanny Roach Primary Care Provid er Encounter Details Date Type Department Care Team (Late Contact Info) Description 09/03/2023 Documentation Only [facility] [address] [place] [address] Mae Olsen [address] [place] [address] Social History Tobacco Use Types [...] [facility] [address] [place] [address] Tiara Barrientos MD [address] [place] [address] [place] [address] documented as of this encounter Visit Diagnoses Not on filedocumented in this encounter Care Teams Metal Casket Maker Relationship Specialty Start Date End Date Lanny Roach [address] [place] [address] PCP - General 03/10/24 documented as of this encounter
--- OUTSIDE RECORDS SUMMARY | 2024-08-26 16:57 | XMS_ITS | Encounter Summary ---
Author Organization [facility] Address [address] [place] [address] Phone Care Team Providers Care Manager Lsw Name Role Phone Lanny Roach Primary Care Provid er Encounter Details Date Type Department Care Team (Late Contact Info) Description 09/03/2023 Documentation Only [facility] [address] [place] [address] Mae Olsen [address] [place] [address] Social History Tobacco Use Types [...] Visit [facility] [address] [place] [address] Tiara Barrientos MD [address] [place] [address] [place] [address] documented as of this encounter Visit Diagnoses Not on filedocumented in this encounter Care Teams Manager Lsw Relationship Specialty Start Date End Date Lanny Roach [address] [place] [address] PCP - General 03/10/24 documented as of this encounter
--- OUTSIDE RECORDS SUMMARY | 2024-08-26 16:57 | XMS_ITS | Encounter Summary ---
Author Organization [facility] Address [address] [place] [address] Phone Care Team Providers Care Financial Internship Name Role Phone Lanny Roach Primary Care Provid er Encounter Details Date Type Department Care Team (Late Contact Info) Description 09/03/2023 Documentation Only [facility] [address] [place] [address] Mae Olsen [address] [place] [address] Social History Tobacco Use Types [...] [facility] [address] [place] [address] Tiara Barrientos MD [address] [place] [address] [place] [address] documented as of this encounter Visit Diagnoses Not on filedocumented in this encounter Care Teams Financial Internship Relationship Specialty Start Date End Date Lanny Roach [address] [place] [address] PCP - General 03/10/24 documented as of this encounter
--- OUTSIDE RECORDS SUMMARY | 2024-08-26 16:57 | XMS_ITS | Encounter Summary ---
Author Organization [facility] Address [address] [place] [address] Phone Care Team Providers Care Zinc Plating Machine Operator Name Role Phone Lanny Roach Primary Care Provid er Encounter Details Date Type Department Care Team (Late Contact Info) Description 09/03/2023 Documentation Only [facility] [address] [place] [address] Mae Olsen [address] [place] [address] Social History Tobacco Use Types [...] Visit [facility] [address] [place] [address] Tiara Barrientos MD [address] [place] [address] [place] [address] documented as of this encounter Visit Diagnoses Not on filedocumented in this encounter Care Teams Zinc Plating Machine Operator Relationship Specialty Start Date End Date Lanny Roach [address] [place] [address] PCP - General 03/10/24 documented as of this encounter
--- OUTSIDE RECORDS SUMMARY | 2024-08-26 16:57 | XMS_ITS | Encounter Summary ---
Author Organization [facility] Address [address] [place] [address] Phone Care Team Providers Care Imaging Administrator Name Role Phone Lanny Roach Primary Care Provid er Encounter Details Date Type Department Care Team (Late Contact Info) Description 09/03/2023 Documentation Only [facility] [address] [place] [address] Mae Olsen [address] [place] [address] Social History Tobacco Use Types [...] [facility] [address] [place] [address] Tiara Barrientos MD [address] [place] [address] [place] [address] documented as of this encounter Visit Diagnoses Not on filedocumented in this encounter Care Teams Imaging Administrator Relationship Specialty Start Date End Date Lanny Roach [address] [place] [address] PCP - General 03/10/24 documented as of this encounter
--- OUTSIDE RECORDS SUMMARY | 2024-08-26 16:58 | XMS_ITS | Encounter Summary ---
Author Organization [employer] Address [address] [place] [address] 7t [place] [address] Care Team Providers Care Oil Bay Technician Name Role Phone Lanny Ewing MD Primary Care Pro vider Reason for Visit * Reason Comments Med Refill Encounter Details Date Type Department Care Team ([facility] st Contact Info) Description 07/19/2023 Refill [facility] MEDICINE [address] [place] [address] Lanny Ewing MD [address] [place], [place] [phone] Social History Tobacco Use Types Packs/Day Years [...] Description 09/16/2024 10:15 AM EDT Office Visit [facility] MEDICINE [address] [place] [address] Lanny Ewing MD [address] [place] [address] 09/19/2024 2:30 PM EDT Medication Management [facility] MEDICINE [address] [place] [address] documented as of this encounter Visit Diagnoses Not on filedocumented in this encounter Care Teams Oil Bay Technician Relationship Specialty Start Date End Date Lanny Ewing MD [address] [place] [address] PCP - General Internal Medicine 03/03/23 documented as of this encounter
--- OUTSIDE RECORDS SUMMARY | 2024-08-26 16:58 | XMS_ITS | Encounter Summary ---
Author Organization [facility] Address [address] [place] [address] Phone Care Team Providers Care Process Improvement Manager Name Role Phone Lanny Roach Primary Care Provid er Encounter Details Date Type Department Care Team (Late Contact Info) Description 09/03/2023 Documentation Only [facility] [address] [place] [address] Mae Olsen [address] [place] [address] Social History Tobacco Use Types [...] Visit [facility] [address] [place] [address] Tiara Barrientos MD [address] [place] [address] [place] [address] documented as of this encounter Visit Diagnoses Not on filedocumented in this encounter Care Teams Process Improvement Manager Relationship Specialty Start Date End Date Lanny Roach [address] [place] [address] PCP - General 03/10/24 documented as of this encounter
--- OUTSIDE RECORDS SUMMARY | 2024-08-26 16:58 | XMS_ITS | Encounter Summary ---
Author Organization [facility] Address PO [facility] [address] [place] [address] Phone Care Team Providers Care Valve Seater Operator Name Role Phone Lanny Roach Primary Care Provid er Encounter Details Date Type Department Care Team (Late st Contact Info) Description 12/31/2021 Documentation Only [facility] [address] [place] [address] Gabino Donnelly MD [address] [facility] [place] [address] Social History Tobacco Use Types [...] [facility] [address] [place] [address] Tiara Barrientos MD [address] [facility] [address] [place] [address] documented as of this encounter Visit Diagnoses Not on filedocumented in this encounter Care Teams Valve Seater Operator Relationship Specialty Start Date End Date Lanny Roach [address] [place] [address] PCP - General 03/10/24 documented as of this encounter
--- OUTSIDE RECORDS SUMMARY | 2024-08-26 16:58 | XMS_ITS | Encounter Summary ---
Author Organization [facility] Address [address] [place] [address] Phone Care Team Providers Care Supervisor Computer Operations Name Role Phone Lanny Roach Primary Care Provid er Encounter Details Date Type Department Care Team (Late Contact Info) Description 09/03/2023 Documentation Only [facility] [address] [place] [address] Mae Olsen [address] [place] [address] Social History Tobacco Use Types [...] Visit [facility] [address] [place] [address] Tiara Barrientos MD [address] [place] [address] [place] [address] documented as of this encounter Visit Diagnoses Not on filedocumented in this encounter Care Teams Supervisor Computer Operations Relationship Specialty Start Date End Date Lanny Roach [address] [place] [address] PCP - General 03/10/24 documented as of this encounter
--- OUTSIDE RECORDS SUMMARY | 2024-08-26 16:58 | XMS_ITS | Data Portability ---
Author Organization [employer] [facility], [place] [facility] - [facility] Address [address] [place] [address] Care Team Providers Care Duralumin Metalworker Name Role Phone [facility] Referring Provider [facility] Referring Provider Assessment Encounter Date Assessment Date Assessment LastModified by Organization Details LastModified Time 11/04/2021 11/04/2021 I have reviewed and agree with the assessment and plan as documented by the recruitment advertising manager. I provided real-time medical direction for this encounter and was immediately available to provide additional phone-based assistance as needed. History as noted in EMR and by recruitment advertising manager. I would add / emphasize: Pt with [...] Assessment and Plan as documented by the Photo Mask Inspector. We discussed the diagnostic uncertainty of home visits and the risk associated with this. The patient given the opportunity to ask questions. Not available 07/16/2023 00:57:16 Plan of Treatment Reminders Order Date Submit Date Provider Last Modified By Organization Details Last Modified Time Details Appointments None recorded. Lab rapid SARS CoV 2 Ag, QL IA, respiratory specimen 2023 024 [email or web address] 0 [facility], [address] [place], [address] 17:07:00 rapid flu (A+B) 2023 024 [email or web address] 0 Main [facility], [address] [place], [address] 4 17:06:58 Referral None recorded. Procedures None recorded. Surgeries None recorded. Imaging None recorded. Medication Orders Solu-Medrol (PF) 125 mg/2 mL solution for injection 2023 024 [email or web address] 0 [id number], [address] [place], [address], 4 17:06:58 albuterol sulfate 2.5 mg/3 mL (0.083 %) solution for nebulizatio n 2023 024 [email or web address] 0 [id number], [address] [place], [address], 4 17:06:58 ipratropium 0.5 mg-albutero l 3 mg (2.5 mg base)/3 mL nebulizatio n soln 2023 024 [email or web address] 0 [id number], [address] [place], [address], 4 17:06:58 azithromyci n 250 mg tablet 2023 024 [email or web address] [id number], [address] [place], [address], 4 01:00:49 albuterol sulfate 2.5 mg/3 mL (0.083 %) solution for nebulizatio n 2021 022 SAADIA [id number], [address] [place], [address], 2 20:21:27 Patient TargetsNo targets recorded. Patient InstructionsNo instructions recorded. Reason for Referral None Reported. Results Created Date Observation Date Name Description Value Unit Range Abnormal Flag Note LastModifiedBy Organization Detail LastModifiedTime 07/15/19 24 07/15/2023 rapid flu (A+B) Flu negati ve Not Available [facility] ed [address] [place] [address], [phone] 07/15/2023 17:05:34 07/15/19 24 07/15/2023 rapid SARS CoV 2 Ag, QL IA, respi rator y speci men rapid SARS CoV 2 Ag, QL IA, respiratory specimen negati ve Not Available [facility] ed [address] [place] [address], [phone] 07/15/2023 17:05:32 Result Notes None recorded. Medical [...] Not available Not available Not available 07/15/2023 82389 91 RxNorm Not Available [facility] - production 4 03:41:56 4597 nickel environme nt rash Not available Not available 07/15/2023 09816 29 RxNorm Laura Knapp MD [address] [place] [address],[address], [place], [phone], [place] [employer] 4 17:04:27 Medications Name Sig Start Date [...] Address Organization Details Last Updated DateTime 2 54889.8 08 g 18 /min 96 % 96 % 70 /min 162.56 cm 98.2 [degF] 112 mm[Hg] 76 mm[Hg] Not Available [employer] - production 2 20:17:52 Date Recorded Body height Oxygen saturation Oxygen saturation in Arterial blood by Pulse oximetry Body temperature Body weight Respiratory rate Heart rate Systolic blood pressure Diastolic blood pressure Provider Name and Address Organization Details Last Updated DateTime 4 165.1 cm 97 % 97 % 97.6 [degF] 63119.4 g 20 /min 84 /min 134 mm[Hg] 76 mm[Hg] Not Available [employer] production 4 16:48:57 Social History None recorded. [...] Note 2126 Joseph Veliz MD Main - [facility] [address] [place] [phone] 11/04/2021 20:17:49 01/28/2022 12:08:20 Wheezing 56303445 R06.2 Laura Knapp MD Main - [facility] [address] [place] [phone] 07/15/2023 16:48:54 07/16/2023 09:24:58 Acute exacerbation of chronic obstructive pulmonary disease 006128233 J44.1 Given DuoNeb and had increased aeration [...] room. She agreed and report called to [place] [facility]. The patient then declined ambulance. The medic and I advised against that given her hypoxia, but they insisted on being driven by family. Explained include respirator y arrest, worsening hypoxia -patient verbalized understand ing of risk, but stated they are only a few minutes from the hospital and insisted on being driven by cough Health Concerns Section Related Observation LastModified by Organization Detai ls LastModified Time None Recorded Concern Status LastModified by Organization Details LastModified Time None Recorded Advance Directives Directive None Recorded Payers Encounter Date Sequence Insurance Name Policy Number Policy Thompson Covered Member ID Thompson Member ID Guarantor Name 11/04/2021 1 [facility] - DOS PRIOR TO 2022 - DUAL ELIGIBLE (MEDICARE REPLACEMENT/ADV ANTAGE - HMO) Mora Manrique [id number] Mora Manrique 07/15/2023 1 [facility] - DOS ON OR AFTER 2022 - DUAL ELIGIBLE - HALFWAY OPTIONS AND ONE CARE (MEDICARE REPLACEMENT/ADV ANTAGE - HMO) Mora Manrique [id number] Mora Manrique Notes Date Note Type Note [...] .................. .................. .................. .................. .................. .................. ............... Photo Mask Inspector Note: Sent to a call for a [...] doesn't have any albuterol solution for nebulizer. [facility] orders rapid COVID test, nebulized treatment, and will send script to pt's pharmacy for albuterol solution for nebulizer. COVID test: negative; Pt improves after nebulized treatment. Pt advised to use nebulizer as needed q4hrs otherwise seek medical attention. Red flags discussed. Pt has no further questions. .................. .................. .................. .................. .................. .................. .................. ............... Disposition: Fulfilled Joseph Veliz MD [address] [place] [address],[address], [place], [phone], [employer] 12/23/2021 11:47:23 07/15/2023 text/html HPI: HX: CKD,RA. [...] .................. .................. .................. .................. .................. .................. ............... Photo Mask Inspector Note From Ronny Camacho: Dispatched to the [...] but was still having some trouble breathing. [facility] consulted several times throughout visit. Pt was advised that she should seek longer treatment and evaluation in the ED. Pt agreed to go to ED as long as family could take her. Family agreed to take Pt to the ED. ALL times are approx. .................. .................. .................. .................. .................. .................. .................. ............... Disposition: Fulfilled Laura Knapp MD [address] [place] [address],[address], [place], [phone], [employer] 07/16/2023 01:10:07 OBGyn Episode No OBEpisode recorded.
--- OUTSIDE RECORDS SUMMARY | 2024-08-26 16:58 | XMS_ITS | Clinical Summary ---
Author Organization [facility] Address [address] [place] [address] [place] [address] Phone Care Team Providers Care Stone Decorator Name Role Phone Lanny Roach Primary Care [...] tablet Take 1 tablet by mouth 08/29/19 Active D3-1000 25 MCG (1000 UT) capsule [...] OR UPPER ARM. ROTATE INJECTION SITES. 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 Serum creatinine above reference range Seropositive rheumatoid arthritis 09/02/2023 Iron deficiency anemia 09/02/2023 Hypertensive retinopathy 09/02/2023 Hypertension 09/02/2023 Hypercholesterolemia 09/02/2023 Gout 09/02/2023 Anemia 09/02/2023 Microscopic hematuria 12/02/2019 Proteinuria Hyperkalemia History of acute kidney injury Immunizations Name Administration Dates Next Due Hepatitis [...] Visit [facility], [address] [place] [address] Tiara Barrientos MD [address] [place] [address] Health Maintenance Due Date Last Done Comments [...] exists Insurance MEDICARE MEDICAID [place] Care Teams Stone Decorator Relationship Specialty Start Date End Date Lanny Roach [address] [place] [phone] PCP - General 03/10/24
--- OUTSIDE RECORDS SUMMARY | 2024-08-26 16:58 | XMS_ITS | Encounter Summary ---
Author Organization [employer] Address [address] [place] [address] [address]t [place] [address] Care Team Providers Care Director Translational Name Role Phone Adenike Souza APPLIED BEHAVIOR SCIENCE SPECIALIST Primary Care Provider [phone] Lanny Ewing MD Primary Care Pro vider Reason for Visit * Reason Comments Med Refill Encounter Details Date Type Department Care Team (Late st Contact Info) Description 12/06/2022 Refill [facility] MEDICINE [address] [place] [phone] Vandana Elmore DO [address] [place], [place] [phone] Social History Tobacco Use Types Packs/Day Years [...] Description 09/16/2024 10:15 AM EDT Office Visit [facility] MEDICINE [address] [place] [address] [phone] Lanny Ewing MD [address] [place] [address] 09/19/2024 2:30 PM EDT Medication Management [facility] MEDICINE [address] [place], [place] [phone] documented as of this encounter Visit Diagnoses Not on filedocumented in this encounter Care Teams Director Translational Relationship Specialty Start Date End Date Adenike Souza FNP PCP - General Family Medicine 01/15/22 03/02/23 Lanny Ewing MD [address] [place], [place] [phone] PCP - General Internal Medicine 03/03/23 documented as of this encounter
--- OUTSIDE RECORDS SUMMARY | 2024-08-26 16:58 | XMS_ITS | Encounter Summary ---
Author Organization [facility] Address [address] [place] [address] Phone Care Team Providers Care Farm Loan Representative Name Role Phone Lanny Roach Primary Care Provid er Encounter Details Date Type Department Care Team (Late Contact Info) Description 09/03/2023 Documentation Only [facility] [address] [place] [address] Mea Olsen [address] [place] [address] Social History Tobacco Use Types [...] Visit [facility] [address] [place] [address] Tiara Barrientos MD [address] [place] [address] [place] [address] documented as of this encounter Visit Diagnoses Not on filedocumented in this encounter Care Teams Farm Loan Representative Relationship Specialty Start Date End Date Lanny Roach [address] [place] [address] PCP - General 03/10/24 documented as of this encounter
--- OUTSIDE RECORDS SUMMARY | 2024-08-26 16:58 | XMS_ITS | Encounter Summary ---
Author Organization [facility] Address [address] [place] [address] Phone Care Team Providers Care Milled Rice Broker Name Role Phone Lanny Roach Primary Care Provid er Encounter Details Date Type Department Care Team (Late Contact Info) Description 09/03/2023 Documentation Only [facility] [address] [place] [address] Mae lOsen [address] [place] [address] Social History Tobacco Use Types [...] Visit [facility] [address] [place] [address] Tiara Barrientos MD [address] [place] [address] [place] [address] documented as of this encounter Visit Diagnoses Not on filedocumented in this encounter Care Teams Milled Rice Broker Relationship Specialty Start Date End Date Lanny Roach [address] [place] [address] PCP - General 03/10/24 documented as of this encounter
--- OUTSIDE RECORDS SUMMARY | 2024-08-26 16:58 | XMS_ITS | Encounter Summary ---
Author Organization [facility] Address PO [facility] [address] [place] [address] Phone Care Team Providers Care Farmworker Brooder Farm Name Role Phone Lanny Roach Primary Care Provid er Encounter Details Date Type Department Care Team (Late st Contact Info) Description 10/07/2022 Documentation Only [facility] [address] [place] [address] [place], [place] [address] [place] [address] Social History Tobacco Use Types [...] Visit [facility] [address] [place] [address] Tiara Barrientos MD [address] [place] [address] [place] [address] documented as of this encounter Visit Diagnoses Not on filedocumented in this encounter Care Teams Farmworker Brooder Farm Relationship Specialty Start Date End Date Lanny Roach [address] [place] [address] [phone] PCP - General 03/10/24 documented as of this encounter
--- OUTSIDE RECORDS SUMMARY | 2024-08-26 16:58 | XMS_ITS | Encounter Summary ---
Author Organization [facility] Address [address] [place] [phone] Care Team Providers Care Business Intelligence Director Name Role Phone Lanny Ewing MD Primary Care Pro vider Reason for Visit * Reason Comments Consult NPV-diabetic foot ca re Encounter Details Date Type Department Care Team (Late st Contact Info) Description 08/25/2024 1:15 PM EDT Consult Orthopedic Surgery - [place] [address] [phone] Josafat Baker DPM [address] [address] Type 2 diabetes mellitus without complication, without long-term current use of insulin (Primary Dx) Social History Tobacco Use Types Packs/Day Years Used Date Smoking Tobacco: Never Assessed Comments Unknown Sex and Gender Information Value Date Recorded Sex Assigned at Not on file Legal Sex Female 11:06 AM EDT Gender Identity Not on file Sexual Orientation Not on file documented as of this encounter Last Filed Vital Signs Vital Sign Reading Time Taken Comments Blood Pressure - - Pulse - - Temperature - - Respiratory Rate - - Oxygen Saturation - - Inhaled Oxygen Concentration - - Weight 90.7 kg (200 lb) 08/25/2024 1:25 PM EDT Height 165.1 cm (5' 5 ) 08/25/2024 1:25 PM EDT Body Mass Index 33.28 08/25/2024 1:25 PM EDT documented in this encounter Progress Notes * Josafat Baker DPM - 08/25/2024 1:15 PM EDT IDENTIFIER: Burton is a 74 y.o. year old female who presents for consultation. CC: Foot pain HPI: Patient presents today for evaluation of her feet she denies numbness burning tingling to her feet she states that her feet are healthy she is taking gabapentin for neuritis however states that her feet have no problems she has had carpal tunnel syndrome but states that she only demonstrates havingshe said she does have a history of rheumatoid arthritis denies pain in her feet ROS: GENERAL: Pt denies nausea, fever, vomiting, chills, or shortness of breath. Pt in NAD. CARDIOLOGY: pt denies chest pain, palpitations LUNGS: pt denies shortness of breath MUSCULOSKELETAL: See HPI, otherwise no joint pain or swelling, back pain, or muscle pain. SKIN: see HPI, otherwise no lesions, rash or itching NEURO: No persistent headache, weakness or numbness The remainder of the review of systems is noncontributory PAST MEDICAL HISTORY: Patient Active Problem List Diagnosis Carpal tunnel syndrome Chronic gouty arthritis COPD (chronic obstructive pulmonary disease) ([facility]) Dermatitis Essential hypertension GERD (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 reflux disease) Hyperlipidemia Hypertensive retinopathy Invasive ductal carcinoma of right breast Microscopic hematuria Moderate persistent asthma with (acute) exacerbation Obesity Osteoarthritis of elbow Osteopenia Proteinuria Recurrent major depressive episodes, mild ([facility]) Seropositive rheumatoid arthritis ([facility]) Stage 3 chronic kidney disease ([facility]) Type 2 diabetes mellitus with stage 3 chronic kidney disease, without long-term current use of insulin ([facility]) SOCIAL HISTORY: Social History Tobacco Use Smoking status: Not on file Smokeless tobacco: Not on file Substance Use Topics Alcohol use: Not on file ACTIVE MEDICATIONS: No outpatient medications have been marked as taking for the 08/25/24 encounter (Consult) with Josafat Baker DPM. ALLERGIES: Allergies Allergen Reactions Aspirin PHYSICAL EXAM: Visit Vitals Ht 1.651 m (65 ) Wt 90.7 kg (200 lb) BMI 33.28 kg/m?? BSA 1.98 m?? PODIATRIC EXAMINATION: GENERAL: Patient appears well nourished, with NAD. VASCULAR: Dorsalis pedis pulses are 2/4 bilaterally and Posterior tibial pulses are 2/4 bilaterally. Capillary filling time within normal limits the digits. No pallor on elevation or rubor on dependency. No varicosities. Denies rest pain or claudication pain. NEUROLOGICAL: Sharp/dull sensation intact, protective sensation intact 10/10 with 5.07 semmes asa bilaterally, vibratory sensation with tuning fork intact to the tibial tuberosity. ORTHOPEDIC: Good muscle strength 5/5 of all flexors and extensors. Dorsi flexion of ankle ,10 degrees, plantar flexion WNL. No muscle atrophy. DERMATOLOGICAL:.No masses or skin lesions noted. Normal skin temperature, normal skin turgor. BIOMECHANICS: Ankle ROM WNL, STJ ROM wnl, MTJ ROM wnl, 1st MPJ ROM wnl. IMAGING: IMPRESSION: 1. Type 2 diabetes mellitus without complication, without long-term current use of insulin PLAN: Pt was seen and examined, history reviewed. Discussed with patient regarding proper glucose control, exercise, and diet. Explained to patient proper shoe gear, and importance of daily foot checks. I reviewed neuropathy and why it occurs in diabetics. I educated the patient on proper blood sugar control and the importance of an HgBA1c of less than 7.0%. I reviewed the signs and symptoms of neuropathy with the patient Pt to return for another evaluation in 12 months. Josafat Baker DPM documented in this encounter Plan of Treatment Not on file documented as of this encounter Visit Diagnoses Diagnosis Type 2 diabetes mellitus without complication, without long-term current use of insulin- Primary documented in this encounter Care Teams Business Intelligence Director Relationship Specialty Start Date End Date Lanny Ewing MD [address] [facility] 9 [place] [phone] PCP - General 10/23/23 documented as of this encounter
--- OUTSIDE RECORDS SUMMARY | 2024-08-26 16:58 | XMS_ITS | Encounter Summary ---
Author Organization [facility] Address [address] [place] [address] Phone Care Team Providers Care Build Automation Engineer Name Role Phone Lanny Roach Primary Care Provid er Encounter Details Date Type Department Care Team (Late Contact Info) Description 09/03/2023 Documentation Only [facility] [address] [place] [address] Mae Olsen [address] [place] [address] Social History Tobacco Use Types [...] [facility] [address] [place] [address] Tiara Barrientos MD [address] [place] [address] [place] [address] documented as of this encounter Visit Diagnoses Not on filedocumented in this encounter Care Teams Build Automation Engineer Relationship Specialty Start Date End Date Lanny Roach [address] [place] [address] PCP - General 03/10/24 documented as of this encounter
--- OUTSIDE RECORDS SUMMARY | 2024-08-26 16:58 | XMS_ITS | Clinical Summary ---
Author Organization [employer] Address [address] [place] [address] 7[address] [place] [address] Care Team Providers Care Neonatal Critical Care Nurse Name Role Phone Lanny Ewing MD Primary [...] 2 times daily. 180 capsule 12/28/19 24 2024 Active ferrous gluconate (Fergon) 324 (38 Fe) MG tablet TAKE 1 TABLET BY MOUTH EVERY OTHER DAY IN THE MORNING 45 tablet 1 01/20/20 24 Active Blood Glucose [...] DAILY 30 mL 5 03/14/20 24 Active Calcium Carb-Cholecalc iferol (Calcium 600+D) 600-20 MG-MCG tablet Take 1 tablet by mouth at noon and 1 tablet in the evening. 180 tablet 1 04/01/20 24 2024 Active Semaglutide, 2 MG/DOSE, (Ozempic, 2 MG/DOSE,) [...] current use of insulin (CMS/HCC) 1 each by Other route Once per day. 100 each 11 04/25/20 24 Active Lancets 33G miscIndication s:Type 2 diabetes mellitus with stage 3b chronic kidney disease, without long-term current use of insulin (CMS/HCC) 1 each Once per day. 100 each 11 04/25/20 24 Active zolpidem (Ambien) 5 MG tabletIndicati ons:Insomnia, unspecified type TAKE 1 TABLET BY MOUTH AT BEDTIME NEEDED FOR SLEEP 30 tablet 1 06/14/19 25 Active atorvastatin (Lipitor) 20 MG tablet TAKE 1 TABLET BY MOUTH AT BEDTIME 90 tablet 06/22/19 25 Active montelukast (Singulair) 10 MG tabletIndicati ons:Seasonal allergic rhinitis, unspecified trigger TAKE 1 TABLET BY MOUTH AT BEDTIME 90 tablet 1 07/15/19 25 Active citalopram (CeleXA) 20 MG tablet TAKE 1 TABLET BY MOUTH EVERY MORNING 90 tablet 07/22/19 25 Active Farxiga 10 MGIndications: Type 2 diabetes mellitus with stage 3b chronic kidney disease, without long-term current use of insulin (CMS/HCC) TAKE 1 TABLET BY MOUTH EVERY MORNING 90 tablet 08/16/19 25 Active loratadine (Claritin) 10 MG tabletIndicati ons:Seasonal allergic rhinitis, unspecified trigger TAKE 1 TABLET BY MOUTH EVERY MORNING 90 tablet 08/16/19 25 Active loratadine (Claritin) 10 MG tabletIndicati ons:Seasonal allergic rhinitis, unspecified trigger TAKE 1 TABLET BY MOUTH EVERY MORNING 90 tablet 1 01/20/20 24 2024 Discontinued(R eorder (will not trigger notification to Pharmacy)) Farxiga 10 MGIndications: Type 2 diabetes mellitus with stage 3b chronic kidney disease, without long-term current use of insulin (CMS/HCC) TAKE 1 TABLET EVERY MORNING 90 tablet 05/17/20 24 2024 Discontinued Active Problems Problem Noted Date Diagnosed [...] reduction recently since her Potassium was elevated. Machine Set Up Technician informed her that her potassium level was [...] Encounters Date Type Department Care Team Description 08/14/2024 Refill [facility] [address] [place] [address] Buck Little MD Type 2 diabetes mellitus with stage 3b chronic kidney disease, without long-term current use of insulin ([facility]); Seasonal allergic rhinitis, unspecified trigger 08/14/2024 Refill [facility] [address] [place] [address] Lanny Ewing MD Seasonal allergic rhinitis, unspecified trigger 08/02/2024 Telephone [facility] [address] [place] [address] Lanny Ewing MD August07/21/2024 Refill [facility] [address] [place] [address] Lanny Ewing MD 07/15/2024 Refill [facility] [address] [place] [address] Lanny Ewing MD Seasonal allergic rhinitis, unspecified trigger 06/28/2024 Orders Only [facility] External Provider, [facility] 06/21/2024 Refill [facility] [address] [place] [address] Lanny Ewing MD 06/11/2024 Refill [facility] [address] [place] [address] Lanny Ewing MD Insomnia, unspecified type from Last 3 Months Immunizations Name Administration [...] is your housing situation today? I have maryamaaron baugh 07/20/[address] you [...] Description 09/16/2024 10:15 AM EDT Office Visit [facility] [address] [place] [phone] Lanny Ewing MD [address] [place] [address] 09/19/2024 2:30 PM EDT Medication Management [address] [phone] Health Maintenance Due Date Last Done Comments CT Colonography 1952 FIT DNA/Cologuard 1950 FIT 1950 FOBT 1950 Sigmoidoscopy 1950 Eye Exam 1962 Alcohol/Substance Use Screening 1964 Diabetes: Foot Exam 12/11/2023 12/10/2022, COVID-19 Vaccine ( season) 2024 09/11/2023, 11/30/2021, 03/22/2021, Additional history exists SDOH Screening 07/20/2024 07/20/2023 Depression Screening 09/10/2024 09/11/2023, 09/11/19 Diabetes: Hemoglobin A1C 10/02/2024 024, 10/13/2023, 08/12/2023, Additional history exists DTaP/Tdap/Td Vaccines (2 - Td or Tdap) 10/25/2024 10/25/2014, 01/11/2003 Tobacco Screening 04/01/2025 04/01/2024 Lipid Panel 04/04/2025 04/04/2024, 052 05/2023, 08/12/2023, Additional history exists Diagnostic Breast Imaging 06/28/20252024, 03/24/2024, 06/16/2022 Mammogram 06/28/2025 06/28/2024, 0 08/2024, 03/24/2024, Additional history exists Colonoscopy 09/17/2028 09/17/2018 Colorectal Cancer Screening 09/17/2028 Hepatitis B Vaccines Completed 01/18/2018, 08/11/2017, 07/14/2017 Zoster Vaccines Completed 06/20/2022, 0 09/2021, 07/14/2017 Pneumococcal Vaccine: 50+ Years Completed [...] Procedure Name Priority Date/Time Associated Diagnosis Comments BI MAMMOGRAM DIAGNOSTIC TOMOSYNTHESIS BILATERAL Routine 06/28/2024 11:45 AM EST HEMOGLOBIN A1C Routine 04/04/2024 10:49 AM EST Type 2 diabetes mellitus with stage 3b chronic kidney disease, without long-term current use of insulin (CMS/HCC) LIPID PANEL, STANDARD Routine 04/04/2024 10:49 AM EST Type 2 diabetes mellitus with stage 3b chronic kidney disease, without long-term current use of insulin (CMS/HCC) HEPATITIS C AB W/REFL TO HCV RNA, QN, PCR Routine 10/13/2023 10:30 AM EDT Annual physical exam HM COLONOSCOPY Routine 09/17/2018 1:13 PM EDT from Last 3 Months or Most Recently Relevant to Health Maintenance Results * BI Mammogram Diagnostic Tomosynthesis Bilateral (06/28/2024 11:45 AM EST) Anatomical Region Laterality Modality Breast Bilateral Mammography 06/28/2024 11:4 5 AM EST Narrative 06/28/2024 2:02 PM EST ? [facility] [place] ? [address] [facility] ?[place] [address] ? Mammography Report ? Signed ? Patient: Manrique,Darlene ?MR#: [id number] ?? 7 ? : 1950 ?Acct:[id number] ? Age/Sex: 73 / F ?ADM Date: 02/04/25 ? Loc: HO.MAMMO ? Attending Dr: Lanny Vasquez MD ? Ordering Physician: Neal Peters MD ?Results: 3.12M ?? Probably Benign Finding - 12 month F/U Suggested ? Date of Service: 06/28/24 ?Follow Up: 12 month diagnos ?? tic follow up ? Procedure(s): MM tomosynthesis diagnostic BI ?? Accession Number(s): [id number] ? cc: Neal Peters MD; Lanny Ewing MD ? EXAMINATION: ?? MM DIAGNOSTIC DIGITAL BREAST TOMOSYNTHESIS, BILATERAL ? CLINICAL INFORMATION: ? 1 year follow-up for grouped calcifications in the lower inner right ?? breast posterior depth. History of right breast cancer status post ?? lumpectomy. ? COMPARISON: ?? Mammography: Comparison is made with relevant prior exams. ? TECHNIQUE: ?? Digital breast mammography with tomosynthesis is performed in both the ?? craniocaudal and mediolateral oblique views along with computer-aided ?? detection (CAD). ? FINDINGS: ?? There are scattered areas of fibroglandular density (ACR BI-RADS breast ?? composition Category b). ?? The previously seen punctate grouped calcifications in the lower inner ?? right breast posterior depth are not significantly changed on ?? magnification views dating back for one year. ?? No suspicious masses or other abnormal findings. ? Results are provided to the patient at time of visit by the ?? technologist. ? MM/MM tomosynthesis diagnostic BI ?? IMPRESSION: ?? Right: ?? Grouped calcifications in the lower inner right breast posterior depth ?? not significant change for one year. Recommend follow-up diagnostic ?? mammogram with magnification views in one year when the patient is due ?? for bilateral mammography. ? Left: Negative. ? ASSESSMENT: ? BI-RADS BI-RADS 3 - Probably benign finding(s) - 12 month follow-up ?? suggested ? RECOMMENDATION: ?? 12 month diagnostic follow up ? This patient's information was entered into a reminder system with a ?? target due date for their next mammogram. ? Electronically signed by: ??Yuliya Khalil DO ??06/28/2024 01:59 PM EST ? Dictated By: ?Yuliya Khalil DO ? Signed By: ?<Electronically signed by Yuliya Khalil, DO in OV> ? 06/28/24 5309 ? DD/ 1145 ? TD/TT: 06/28/24 1205 ? Quarter Supervisor: ? Procedure Note Donfadumoarielrachealter, Image - 06/28/2024 Kwan [facility] [address] [place], [place] [address] Mammography Report Signed Patient: Mora Manrique EMR#: [id number] 7 : 3Acct:[id number] Age/Sex: 73 / FADM Date: 06/28/24 Loc: GI[facility] Attending Dr: Lanny Vasquez MD Ordering Physician: Neal Peters MDResults: 3.12M Probably Benign Finding - 12 month F/U Suggested Date of Service: 06/28/24Follow Up: 12 month diagnos tic follow up Procedure(s): MM tomosynthesis diagnostic BI Accession Number(s): [id number] cc: Neal Peters MD; Lanny Ewing MD EXAMINATION: MM DIAGNOSTIC DIGITAL BREAST TOMOSYNTHESIS, BILATERAL CLINICAL INFORMATION: 1 year follow-up for grouped calcifications in the lower inner right breast posterior depth. History of right breast cancer status post lumpectomy. COMPARISON: Mammography: Comparison is made with relevant prior exams. TECHNIQUE: Digital breast mammography with tomosynthesis is performed in both the craniocaudal and mediolateral oblique views along with computer-aided detection (CAD). FINDINGS: There are scattered areas of fibroglandular density (ACR BI-RADS breast composition Category b). The previously seen punctate grouped calcifications in the lower inner right breast posterior depth are not significantly changed on magnification views dating back for one year. No suspicious masses or other abnormal findings. Results are provided to the patient at time of visit by the technologist. MM/MM tomosynthesis diagnostic BI IMPRESSION: Right: Grouped calcifications in the lower inner right breast posterior depth not significant change for one year. Recommend follow-up diagnostic mammogram with magnification views in one year when the patient is due for bilateral mammography. Left: Negative. ASSESSMENT: BI-RADS BI-RADS 3 - Probably benign finding(s) - 12 month follow-up suggested RECOMMENDATION: 12 month diagnostic follow up This patient's information was entered into a reminder system with a target due date for their next mammogram. Electronically signed by: Yuliya Khalil DO 06/28/2024 01:59 PM EST Dictated By: Yuliya Khalil DO Signed By: <Electronically signed by Yuliya Khalil DO in OV> 06/28/24 1359 DD/ 1145 TD/TT: 06/28/24 1205 Quarter Supervisor: [facility] External Provider IMG BI PROCEDURES Final Result * (ABNORMAL) Hemoglobin A1c (04/04/2024 10:49 AM EST) Hemoglobin A1c 6.8(H) <6.0 % [facility] Comment:Hemoglobin A1C Refer ence Range Adults: 4.8 - 6.0 % Non diabetic: < 6.0 % Goal: < 7.0 %Additional Action Suggested: > 8.0 %Note: Hemoglobin A1c results are invalid for patients with abnormal amounts of HbF. Blood transfusions may impact the HbA1c concentration in the patient sample. Estimated Average Glucose 148 mg/dL [facility] Comment:eAG = Estimated ave rage glucose which is %A1C expressed asaverage glucose, using the formula of the X4X-UaqlenwMofaydy Glucose study (ADAG), Diabetes Care, Vol.31,#8,Dec. 2007 Blood Venous blood specimen / Unknown 04/04/2024 10:49 AM EST 04/04/2024 12:57 PM EST Lanny Vasquez MD LAB BLOOD ORDERAB LES Final Result Performing Organization Address City/[facility]/ZIP Co de Phone Number [facility] [address] [place] [phone] * (ABNORMAL) Lipid Panel, Standard (04/04/2024 10:49 AM EST) Triglycerides 156(H) <150 mg/dL [facility] Comment:Desirable Triglyceri de: less than 150 mg/dLBorderline High Triglyceride 150-199 mg/dLHigh Triglyceride: 200-499 mg/dLVery High Triglyceride: greater than or equal to 5OO mg/dL Cholesterol 119 <200 mg/dL [facility] Comment:Desirable Cholestero l: less than 200 mg/dLBorderline High Cholesterol: 200-239 mg/dLHigh Cholesterol: greater than 239 mg/dL LDL Cholesterol Calculated 54 <100 mg/dL [facility] Comment:Desirable LDL: less than 100 mg/dLNear Optimal/Above Optimal LDL: 110- 129 mg/dLBorderline High LDL: 130-159 mg/dLHigh LDL: 160-189 mg/dLVery High LDL: greater than or equal to 190 mg/dL HDL Cholesterol 34(L) >40 mg/dL [facility] Comment:Desirable HDL: great er than 40 mg/dL Note: This HDL assay may give artificially low results in patients with liver disease. Blood Venous blood specimen / Unknown 04/04/2024 10:49 AM EST 04/04/2024 12:57 PM EST us Lanny Vasquez MD LAB BLOOD ORDERAB LES Final Result Performing Organization Address City/[facility]/ZIP Co de Phone Number [facility] [address] [place] [phone] * Hepatitis C Antibody with Reflex to HCV, RNA, Quantitative, Real-Time PCR (10/13/2023 10:30 AM EDT) Hepatitis C Antibody Nonreactive Nonreactive [facility] Comment:Antibodies to HCV no t detected; does not exclude early acuteHCV infection. Blood Venous blood specimen / Unknown 10/13/2023 10:30 AM EDT 10/13/2023 11:19 AM EDT Lanny Vasquez MD LAB BLOOD ORDERAB LES Final Result [facility] [address] [place] [address] [phone] * Hm Colonoscopy (09/17/2018 1:13 PM EDT) Historical Provider HEALTH MAINTENANCE Final Result from Last 3 Months or Most Recently Relevant to Health Maintenance Insurance [facility] MEDICARE [facility] [address] [place] [address] [address] [place] [address] [address] [place] [address] Care Teams Neonatal Critical Care Nurse Relationship Specialty Start Date End Date Lanny Ewing MD [address] [place] [phone] PCP - General Internal Medicine 03/03/23
--- OUTSIDE RECORDS SUMMARY | 2024-08-26 16:58 | XMS_ITS | Encounter Summary ---
Author Organization [facility] Address [address] [place] [address] Phone Care Team Providers Care Reinforcing Rod Layer Name Role Phone Lanny Roach Primary Care Provid er Encounter Details Date Type Department Care Team (Late Contact Info) Description 09/03/2023 Documentation Only [facility] [address] [place] [address] Mae Olsen [address] [place] [address] Social History Tobacco Use Types [...] Visit [facility] [address] [place] [address] Tiara Barrientos MD [address] [place] [address] [place] [address] documented as of this encounter Visit Diagnoses Not on filedocumented in this encounter Care Teams Reinforcing Rod Layer Relationship Specialty Start Date End Date Lanny Roach [address] [place] [address] PCP - General 03/10/24 documented as of this encounter
--- OUTSIDE RECORDS SUMMARY | 2024-08-26 16:58 | XMS_ITS | Encounter Summary ---
Author Organization [facility] Address [address] [place] [address] Phone Care Team Providers Care Plant Guide Name Role Phone Lanny Roach Primary Care Provid er Encounter Details Date Type Department Care Team (Late Contact Info) Description 09/03/2023 Documentation Only [facility] [address] [place] [address] Mae Olsen [address] [place] [address] Social History Tobacco Use Types [...] [facility] [address] [place] [address] Tiara Barrientos MD [address] [place] [address] [place] [address] documented as of this encounter Visit Diagnoses Not on filedocumented in this encounter Care Teams Plant Guide Relationship Specialty Start Date End Date Lanny Roach [address] [place] [address] PCP - General 03/10/24 documented as of this encounter
--- OUTSIDE RECORDS SUMMARY | 2024-08-26 16:58 | XMS_ITS | Encounter Summary ---
Author Organization [facility] Address [address] [place] [address] Phone Care Team Providers Care Wheat And Oats Flake Miller Name Role Phone Lanny Roach Primary Care Provid er Encounter Details Date Type Department Care Team (Late Contact Info) Description 09/03/2023 Documentation Only [facility] [address] [place] [address] Mae Olsen [address] [place] [address] Social History Tobacco Use Types [...] [facility] [address] [place] [address] Tiara Barrientos MD [address] [place] [address] [place] [address] documented as of this encounter Visit Diagnoses Not on filedocumented in this encounter Care Teams Wheat And Oats Flake Miller Relationship Specialty Start Date End Date Lanny Roach [address] [place] [address] PCP - General 03/10/24 documented as of this encounter
--- OUTSIDE RECORDS SUMMARY | 2024-08-26 16:58 | XMS_ITS | Encounter Summary ---
Author Organization [facility] Address [address] [place] [address] Phone Care Team Providers Care Reconciliation Analyst Name Role Phone Lanny Roach Primary Care Provid er Encounter Details Date Type Department Care Team (Late Contact Info) Description 03/29/2024 Documentation Only [facility] [address] [place] [address] Mae Olsen [address] [place] [address] Social History Tobacco Use Types [...] [facility] [address] [place] [address] Tiara Barrientos MD [address] [place] [address] [place] [address] documented as of this encounter Visit Diagnoses Not on filedocumented in this encounter Care Teams Reconciliation Analyst Relationship Specialty Start Date End Date Lanny Roach [address] [place] [address] PCP - General 03/10/24 documented as of this encounter
--- OUTSIDE RECORDS SUMMARY | 2024-08-26 16:58 | XMS_ITS | Encounter Summary ---
Author Organization [employer] Address [address] [place] [address] 7[address] [place] [address] Care Team Providers Care Director Learning Name Role Phone Lanny Ewing MD Primary Care Pro vider Reason for Visit * Reason Onset Date Comments Hospital Follow-up 07/20/2023 Encounter Details Date Type Department Care Team ([facility] st Contact Info) Description 07/20/2023 Telephone [facility] [address] [place], [place] [phone] Lanny Ewing MD [address] [place], [place] [phone] Hospital Follow-up Social History Tobacco Use Types [...] from pt requesting a HDF appt. Hospital: [facility] Date of admission: 06/14/2023 Discharge date: 06/17/2023 Diagnosed: Trouble Breathing/Asthma documented in this encounter Plan of Treatment Upcoming Encounters Date Type Department Care Team (Late st Contact Info) Description 09/16/2024 10:15 AM EDT Office Visit [facility] [address] [place] [phone] Lanny Ewing MD [address] [place] [phone] 09/19/2024 2:30 PM EDT Medication Management [facility] [address] [place] [phone] documented as of this encounter Visit Diagnoses Not on filedocumented in this encounter Care Teams Director Learning Relationship Specialty Start Date End Date Lanny Ewing MD [address] [place] [phone] PCP - General Internal Medicine 03/03/23 documented as of this encounter
--- OUTSIDE RECORDS SUMMARY | 2024-08-26 16:58 | XMS_ITS | Encounter Summary ---
Author Organization [facility] Address [address] [place] [address] Phone Care Team Providers Care Guide Dog Instructor Name Role Phone Lanny Roach Primary Care Provid er Encounter Details Date Type Department Care Team (Late Contact Info) Description 03/29/2024 Documentation Only [facility] [address] [place] [address] Mae Olsen [address] [place] [address] Social History Tobacco Use Types [...] [facility] [address] [place] [address] Tiara Barrientos MD [address] [place] [address] [place] [address] documented as of this encounter Visit Diagnoses Not on filedocumented in this encounter Care Teams Guide Dog Instructor Relationship Specialty Start Date End Date Lanny Roach [address] [place] [address] PCP - General 03/10/24 documented as of this encounter
--- OUTSIDE RECORDS SUMMARY | 2024-08-26 16:58 | XMS_ITS | Clinical Summary ---
Author Organization [facility] Address [address] [place] [address] Phone Care Team Providers Care Gauge Operator Name Role Phone Lanny Ewing MD Primary Care Pro vider Allergies Active Allergy Reactions Criticality Noted Date Comments Aspirin 02/22/2024 Medications gabapentin (NEURONTIN) 400 mg capsule Take 1 [...] without long-term current use of insulin 02/22/2024 Encounters Date Type Department Care Team Description 08/25/2024 1:15 PM EDT Consult Orthopedic Surgery - [place] [address] [place] [phone] Josafat Baker, DPM Type 2 diabetes mellitus without complication, without long-term current use of insulin (Primary Dx) from Last 3 Months Social History Tobacco Use Types Packs/Day Years [...] Mass Index 33.28 08/25/2024 1:25 PM EDT Plan of Treatment Health Maintenance Due Date Last Done Comments Breast Cancer Screening 1950 Diabetes: Annual GFR (Glomerular Filtration Rate) 1952 Diabetes: Annual Foot Exam 1962 Diabetes: Annual Retina Eye Exam 1962 Colorectal Cancer Screening: Colonoscopy 01/20/2024 Falls Risk Assessment 01/20/2024 Medicare Annual Wellness Visit 01/20/2024 Osteoporosis Screening (Bone Density Screening) 01/20/2024 Social Influencers of Health Screening 01/20/2024 COVID-19 Vaccine ( season) 2024 09/11/2023, 11/30/2021, 03/22/2021, Additional history exists Diabetes: Annual Urine Albumin-Creatinine Ratio (uACR) 03/08/2024 Hypertension/CHF/CAD Annual BMP Blood Test 03/08/2024 Depression Screening 09/10/2024 09/11/2023 Diabetes: Blood Sugar Control Test (HGBA1C) 10/02/2024 04/04/2024 DTaP,Tdap,and Td Vaccines (3 - Td or Tdap) 10/25/2024 10/25/2014, 01/11/2003 Cholesterol Screening (Lipid Panel) 04/04/2029 04/04/2024 Hepatitis B Vaccines Completed 01/18/2018, 08/11/2017, 07/14/2017 Zoster Vaccines Completed 06/20/2022, 09/2021, 07/14/2017 Pneumococcal Vaccine: 50+ Years Completed 11/06/2022, 07/18/2021, 02/28/2014, Additional history exists RSV Immunization Adult Patients Completed 07/30/2023 Hepatitis C Screening Completed 10/13/2023 [...] patient's age to complete this topic Meningococcal B Vacine Aged Out No lo nger eligible based on patient's age to complete this topic RSV Immunization Patients Under 20 months Aged Out No longer eligible based on patient's age to complete this topic Varicella Vaccines Aged Out No longer eligible based on patient's age to complete this topic Insurance MEDICARE Care Teams Gauge Operator Relationship Specialty Start Date End Date Lanny Ewing MD [address] [facility] 9 [place] [address] PCP - General 10/23/23
--- OUTSIDE RECORDS SUMMARY | 2024-08-26 16:58 | XMS_ITS | Encounter Summary ---
Author Organization [employer] Address [address] [facility] 7t [place] [address] Care Team Providers Care Paint Process Engineer Name Role Phone Lanny Ewing MD Primary Care Pro vider Encounter Details Date Type Department Care Team (Late st Contact Info) Description 10/26/2023 Orders Only [facility] [address] [place] [address] Provider, MD Sherly Social History Tobacco Use [...] Description 09/16/2024 10:15 AM EDT Office Visit [facility] [address] [place] [address] [phone] Lanny Ewing MD [address] [place] [address] [phone] 09/19/2024 2:30 PM EDT Medication Management [address] [phone] documented as of this encounter Goals Goal Patient Goal Type Associated Problems Recent Progress Patient-Stated? Author Blood Pressure < 140/90 Blood Pressure 115/64(2023 2:32 PM EST) No Jessica Evans Hemoglobin A1c < 7 Result Component 6.8( 10:49 AM EST) No Jessica Evans documented as of this encounter Procedures Procedure Name Priority Date/Time Associated Diagnosis Comments HM COLONOSCOPY Routine 09/17/2018 1:13 PM EDT documented in this encounter Results * Hm Colonoscopy (09/17/2018 1:13 PM EDT) us Historical Provider HEALTH MAINTENANCE Final Result documented in this encounter Visit Diagnoses Not on filedocumented in this encounter Additional Health Concerns Assessment Noted Time PHQ-9 Depression Total Score: 7 09/11/19 24 2:05 PM EDT documented as of this encounter Care Teams Paint Process Engineer Relationship Specialty Start Date End Date Lanny Ewing MD [address] [place] [phone] PCP - General Internal Medicine 03/03/23 documented as of this encounter
--- OUTSIDE RECORDS SUMMARY | 2024-08-26 16:58 | XMS_ITS | Encounter Summary ---
Author Organization [employer] [facility] Address [address] [place], [place] [address] [place] [address] Care Team Providers Care Oracle Solutions Architect Name Role Phone Adenike Souza [facility] Primary Care Provider [phone] Lanny Ewing MD Primary Care Pro vider Reason for Visit * Reason Comments Med Refill Encounter Details Date Type Department Care Team (Late Contact Info) Description 01/02/2023 Refill [facility] [address] [place] [address] [phone] Adenike Souza [address] [place] [address] Social History Tobacco Use Types Packs/Day Years [...] Department Care Team (Late Contact Info) Description 09/16/2024 10:15 AM EDT Office Visit [facility] [address] [place] [address] [phone] Lanny Ewing MD [address] [place] [address] [phone] 09/19/2024 2:30 PM EDT Medication Management [facility] [address] [place] [address] documented as of this encounter Visit Diagnoses Not on filedocumented in this encounter Care Teams Oracle Solutions Architect Relationship Specialty Start Date End Date Adenike Souza FNP PCP - General Family Medicine 01/15/22 03/02/23 Lanny Ewing MD [address] [place] [address] PCP - General Internal Medicine 03/03/23 documented as of this encounter
--- OUTSIDE RECORDS SUMMARY | 2024-08-26 16:58 | XMS_ITS | Encounter Summary ---
Author Organization [facility] Address [address] [place] [address] Phone Care Team Providers Care Candy Cooker Helper Name Role Phone Lanny Roach Primary Care Provid er Encounter Details Date Type Department Care Team (Late Contact Info) Description 03/22/2024 Documentation Only [facility] [address] [place] [address] Mae Olsen [address] [place] [address] Social History Tobacco Use Types [...] Visit [facility] [address] [place] [address] Tiara Barrientos MD [address] [place] [address] [place] [address] documented as of this encounter Visit Diagnoses Not on filedocumented in this encounter Care Teams Candy Cooker Helper Relationship Specialty Start Date End Date Lanny Roach [address] [place] [address] PCP - General 03/10/24 documented as of this encounter
== END 2024-08-26 16:20 | disposition home or self-care (01) ==
LOC: HO.RHE 15:59
PROVIDERS: PCP Student in an Organized Health Care Education/Training Program; Visit Provider Student in an Organized Health Care Education/Training Program
DX: M19.041 Primary osteoarthritis, right hand (principal); M19.042 Primary osteoarthritis, left hand; M1A.39X0 Chronic gout due to renal impairment, multiple sites, without tophus (tophi); M17.11 Unilateral primary osteoarthritis, right knee; M05.79 Rheumatoid arthritis with rheumatoid factor of multiple sites without organ or systems involvement; M54.50 Low back pain, unspecified; G89.29 Other chronic pain
CPT/HCPCS: 99214; G2211

== ENCOUNTER → 2024-08-26 15:58 | Outpatient (BNVA) | payer MEDICARE, SELFPAY | PROVIDERS: PCP Student in an Organized Health Care Education/Training Program; Visit Provider Student in an Organized Health Care Education/Training Program | DX: M79.7 Fibromyalgia (principal); M1A.39X0 Chronic gout due to renal impairment, multiple sites, without tophus (tophi); M19.041 Primary osteoarthritis, right hand; M19.042 Primary osteoarthritis, left hand; M17.0 Bilateral primary osteoarthritis of knee; M05.9 Rheumatoid arthritis with rheumatoid factor, unspecified; M54.50 Low back pain, unspecified; G89.29 Other chronic pain | CPT/HCPCS: 99212 ==

== ENCOUNTER 2024-10-26 15:00 | Outpatient (AMB) | payer MEDICARE, SELFPAY ==
--- NOTE | 2024-10-26 15:05 | A.OFFVIS_ITS ---
Vital Signs 10/26/24 15:15 Height 5 ft 5 in Weight 192 lb 4 oz BMI 32.0 BP 118/60 Blood Pressure Location Lt brachial Position Sitting Pulse 78 Pulse Source Pulse Oximeter Pulse Oximetry (%) 93 Oxygen Delivery Method Room Air Intake Visit Reasons: 8m Intake Note: Established patient for GERD mgmt. 1 YR FUV. CC; Pt denies any GI sx or concerns at this time. Rx therapy is still effective for current conditions per pt. Pt does require refill of her dexlansoprazole. Embryology Teacher Required: No Accompanied by: Self / Same As Patient Allergies latex [LATEX] Allergy (Intermediate, Verified 10/26/24 15:12) BLISTERS abatacept [From Orencia] Allergy (Unknown, Verified 10/26/24 15:12) Itching adalimumab [From Humira] Allergy (Verified 10/26/24 15:12) dizziness aspirin Adverse Reaction (Intermediate, Verified 10/26/24 15:12) abdominal pain HPI HPI 8m: Details: Assessment & Plan (1) Constipation due to slow transit: Code(s): K59.01 - Slow transit constipation Category: Medical (2) GERD (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 reflux disease): Code(s): K21.9 - Gastro-esophageal reflux disease without esophagitis Category: Medical Plan She continues to do well on her Dexliant with good control of her GERD She is newly on ozempic and causing CIC. 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 Dulcolax 1-2 qhs. ROV if not better - she is only at 1mg oz so may worsen. ROV 6 mos or sooner. Medications: New bisacodyl (Dulcolax (bisacodyl)) 10 mg (2 x 5 mg) PO BEDTIME 60 tabs 6RF 30 days K59.01 - Slow transit constipation Refilled dexlansoprazole 60 mg PO QAM 90 caps 0RF TODAY'S VISIT She continues to do well on her bisacodyl and Dexilant. Return office visit in 6 months. [facility] Medical History CKD (chronic kidney disease), stage III Hypoxemia Pneumonia Acute exacerbation of chronic obstructive pulmonary disease (COPD) SUNNI (acute kidney injury) Abnormal mammogram of right breast History of right breast cancer (~2003) Type 2 diabetes mellitus Osteopenia Personal history of nicotine dependence Back pain Chronic lung disease Acute and chronic respiratory failure with hypoxia History of Helicobacter pylori infection Osteoarthritis of both feet Lymphedema COVID-19 vaccine administered Hx of cardiac murmur Depression Anemia Hx of gout Elevated cholesterol HTN (hypertension) COPD (chronic obstructive pulmonary disease) GERD (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 reflux disease) 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 Seropositive rheumatoid arthritis Asthma Surgical History Hx of hand surgery H/O cystoscopy Hx of thumb surgery H/O colonoscopy H/O local excision of skin lesion History of bilateral carpal tunnel release S/P lumpectomy, right breast History of esophagogastroduodenoscopy (EGD) Family History Father Throat cancer Mother Asthma Osteoarthritis Sister Breast cancer Social History Household Members: None Housing: House Do you presently have visiting nurse or other home services: No Unable to assess alcohol history related to: Unknown Alcohol intake: never Patient Tobacco Use Status: Former Tobacco user Tobacco use type: Cigarette e-Cigarette/Vaping Use: Never Used service: No Current occupational status: retired 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 Female Reproductive History Menstrual Age of Menarche: 14 Review of Systems Const Denies fatigue, Denies fever(s), Denies night sweats, Denies poor appetite and Denies weight loss Eyes Details: glasses Reports requires corrective lenses ENT Reports Normal hearing present, Denies dental pain, Denies dysphagia, Denies hearing loss, Denies mouth pain, Denies odynophagia, Denies throat swelling, Denies tongue swelling and Reports other (Dentition adequate) Card Reports no additional complaints Resp Reports no additional complaints GI Details: Denies abdominal pain, Denies melena, Denies bloating, Denies hematochezia, Reports constipation, Denies GI cramping, Denies dysphagia, Denies excessive flatus, Denies early satiety, Reports heartburn, Denies diarrhea, Denies nausea, Denies odynophagia, Denies vomiting and Denies hematemesis Musc Reports back pain, Reports myalgias and Reports arthralgias Skin/Breast Denies pruritus, Denies lesions, Denies rash and Denies jaundice Neuro Reports Normal hearing present and Denies Abnormal speech present Endo Denies fatigue Aller/Immun Denies throat swelling and Denies tongue swelling Physical Exam Vital Signs: Last Vital Signs Pulse 78 10/26/24 15:15 BP 118/60 10/26/24 15:15 Pulse Ox 93 10/26/24 15:15 Oxygen Delivery Method Room Air 10/26/24 15:15 BMI result Body Mass Index 32.0 Const General: cooperative, no acute distress, well developed and well groomed Nutritional Appearance: well nourished and obese Orientation/consciousness: oriented to person, oriented to place and oriented to time Limitations: language barrier HEENT Head: Yes normocephalic and Yes atraumatic Eyes General: appearance normal, both eyes and all related structures Pupils: Equal, round and reactive pupils present Neck Neck: Yes normal visual inspection and Yes no lymphadenopathy Thyroid: Thyroid normal Resp Effort & Inspection: normal respiratory effort and able to speak in complete sentences Auscultation: clear to auscultation bilaterally Cardio Rate: regular rate Rhythm: regular rhythm Heart sounds: Normal, physiologic split S2 sound present Peripheral pulses: radial pulses present and posterior tibial pulses present GI Inspection: No distended, No Abdominal panniculus present and Yes obesity Palpation (GI): Soft to palpation, nontender, no guarding, not rigid and No hepatosplenomegaly present Percussion: Yes normal to percussion Auscultation: normal bowel sounds Rectal Exam - Female: deferred Skin General skin exam: no rashes or lesions noted, turgor normal, skin not dry, no jaundice, No spider nevi and no striae Rashes: no rashes Nails: normal Neuro General: oriented to person, oriented to place and oriented to time Cranial nerves: Yes Equal, round and reactive pupils present and Yes Normal hearing present Speech: No Abnormal speech present Extrem General: Yes normal to inspection, No clubbing, No cyanosis and No edema Psych Appearance: grossly normal and well kempt Mental Status: mental status grossly normal Speech and movement: Normal speech and movement present Affect: normal affect Attitude: cooperative Thought process: Normal thought process present and not confabulating Thought content: Normal thought content present Insight: Fair insight present (Psych) Judgement: Fair judgement present (Psych) Assessment & Plan Assessment & Plan (1) GERD (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 reflux disease): Code(s): K21.9 - Gastro-esophageal reflux disease without esophagitis Category: Medical (2) Constipation due to slow transit: Code(s): K59.01 - Slow transit constipation Category: Medical Plan She continues to do well on her bisacodyl and Dexilant. Return office visit in 6 months Medications: New bisacodyl 10 mg (2 x 5 mg) PO BEDTIME 180 tabs 1RF 90 days Refilled dexlansoprazole 60 mg PO QAM 90 caps 1RF Coding Level of Care Code Est Pt Level 3 (55957) Diagnoses GERD (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 reflux disease) K21.9 Constipation due to slow transit K59.01
--- OUTSIDE RECORDS SUMMARY | 2024-10-26 15:09 | XMS_ITS | Encounter Summary ---
Author Organization [facility] Address [address] [place] [address] Phone Care Team Providers Care Bag Patcher Name Role Phone Lanny Roach Primary Care Provid er Encounter Details Date Type Department Care Team (Late Contact Info) Description 09/03/2023 Documentation Only [facility] [address] [place] [address] Mae Olsen [address] [place] [address] Social History Tobacco Use Types [...] Visit [facility] [address] [place] [address] Tiara Barrientos MD [address] [place] [address] [place] [address] documented as of this encounter Visit Diagnoses Not on filedocumented in this encounter Care Teams Bag Patcher Relationship Specialty Start Date End Date Lanny Roach [address] [place] [address] PCP - General 03/10/24 documented as of this encounter
[2024-10-26 15:15] VITALS: BP 118/60; PULSE 78; O2SAT 93; BMI 32.0
== END 2024-10-26 15:37 | disposition home or self-care (01) ==
LOC: HO.HGI 15:01
PROVIDERS: PCP Student in an Organized Health Care Education/Training Program; Visit Provider Nurse Practitioner
DX: K21.9 Gastro-esophageal reflux disease without esophagitis (principal); K59.01 Slow transit constipation
CPT/HCPCS: 99213

== ENCOUNTER → 2024-10-26 15:00 | Outpatient (BNVA) | payer MEDICARE, SELFPAY | PROVIDERS: PCP Student in an Organized Health Care Education/Training Program; Visit Provider Nurse Practitioner | DX: K21.9 Gastro-esophageal reflux disease without esophagitis (principal); K59.01 Slow transit constipation | CPT/HCPCS: 99212 ==

== ENCOUNTER 2024-11-11 11:02 | Outpatient (AMB) | payer MEDICARE, MEDICAID, SELFPAY ==
--- NOTE | 2024-11-11 07:52 | MHC.OFFVIS ---
Intake Visit Reasons: LDCT Allergies latex (LATEX) Allergy (Intermediate, Verified 10/26/24 15:12) BLISTERS abatacept (From Orencia) Allergy (Unknown, Verified 10/26/24 15:12) Itching adalimumab (From Humira) Allergy (Verified 10/26/24 15:12) dizziness aspirin Adverse Reaction (Intermediate, Verified 10/26/24 15:12) abdominal pain HPI HPI LDCT: Details: Initial visit for this 74yo former smoker with a 22PYH. Patient started smoking at age 17 for 45 years at 1/2ppd. She quit 12 years ago in 2012. . Denies marijuana use. Denies second hand smoke exposure. Denies exposure to chemicals or substances like asbestos. . Denies known family history of lung cancer. Reports personal history of Breast cancer. -Rt Breast IDC -dx 2003 - s/p lumpectomy, LN dissection, XRT radiation, Arimidex. . Denies chest CT in last year. On 07/15/[address] for shortness of breath. -Scan showed lower lobe atelectasis. No suspicious nodules noted. . Denies recent travel outside the [place]. Denies recent respiratory illness or recent hospitalization for respiratory issues. Reports history testing positive for COVID. Admits receiving COVID Vaccine. . Denies fever, chills, new/worsening cough, hemoptysis, hoarseness or dysphagia. Denies significant chest pain, significant dyspnea or unintentional weight loss. Patient Lung Cancer Screening Questionnaire reviewed with patient by provider. . Shared Decision Making Completed. Patient meets criteria. Discussed in detail with patient, the risk vs benefit of LDCT screening. Patient consents to proceed with scan. Discussed and encouraged continued smoking cessation. [facility] Medical History (Updated 11/11/24 @ 11:10 by Elzbieta Aguirre PA-C) History of right breast cancer (~2003) CKD (chronic kidney disease), stage III Hypoxemia Pneumonia Acute exacerbation of chronic obstructive pulmonary disease (COPD) SUNNI (acute kidney injury) Abnormal mammogram of right breast Type 2 diabetes mellitus Osteopenia Personal history of nicotine dependence Back pain Chronic lung disease Acute and chronic respiratory failure with hypoxia History of Helicobacter pylori infection Osteoarthritis of both feet Lymphedema COVID-19 vaccine administered Hx of cardiac murmur Depression Anemia Hx of gout Elevated cholesterol HTN (hypertension) COPD (chronic obstructive pulmonary disease) GERD (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 reflux disease) 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 Seropositive rheumatoid arthritis Asthma Surgical History Hx of hand surgery H/O cystoscopy Hx of thumb surgery H/O colonoscopy H/O local excision of skin lesion History of bilateral carpal tunnel release S/P lumpectomy, right breast History of esophagogastroduodenoscopy (EGD) Family History Father Throat cancer Mother Asthma Osteoarthritis Sister Breast cancer Social History (Updated 11/11/24 @ 11:16 by Elzbieta Aguirre PA-C) Household Members: None Housing: House Do you presently have visiting nurse or other home services: No Unable to assess alcohol history related to: Unknown Alcohol intake: never Patient Tobacco Use Status: Former Tobacco user Tobacco use type: Cigarette Years Smoked: (onset 17yo, 1/2ppd x 45yrs, 22pyh - quit 2012) e-Cigarette/Vaping Use: Never Used service: No Current occupational status: retired 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 - Patient meets criteria for LDCT for lung cancer screening purposes and is asymptomatic. - Smoking cessation counseling offered. Patients can always call [phone]. - Will arrange for a LDCT scan of the chest for screening purposes at [facility]. - Risks, benefits, and alternatives were discussed in detail and the patient agrees to proceed. - Risks discussed include but are not limited to: radiation exposure, anxiety during testing and while awaiting results, false negatives, false positives and possibility of additional intervention such as further imaging or surgical procedures for benign disease. - Benefits are obviously detection of lung cancer at an early stage which can lead to improved outcomes. - Discussed the importance of screening program compliance with adherence to yearly LDCT scan as scheduled - or sooner interval scans for personalized screening regimen. - Discussed follow up plan. Our office will send a letter discussing results and if needed set up phone call and office visit based on CT findings. - Patient educated on results categorization and the management decisions for suspicious findings potentially found on the screening LDCT scan. Any patient with a Lung RADS score of 3 or 4 will be reviewed by a multidisciplinary team at [facility] to form a plan of action in regards to scan findings. - If further work up is warranted for a suspicious lung finding this will be followed by the Lung Cancer Screening program in conjunction with the Thoracic Surgery Department at [facility]. - A copy of the office note and LDCT will be sent to the patient's PCP - as well as documentation on any associated further plans of care. - Incidental findings on LDCT are the PCP's responsibility. These findings are indicated with an S finding on the LDCT Assessment. A note discussing the findings will be sent to the PCP who is then responsible for further management. - All questions answered.? Coding Level of Care Code Lung Cancer Screening G0296 Diagnoses Personal history of nicotine dependence Z87.891
--- OUTSIDE RECORDS SUMMARY | 2024-11-11 11:28 | XMS_ITS | Encounter Summary ---
Author Organization [facility] Address [address] [place] [address] Phone Care Team Providers Care Resource Engineer Name Role Phone Lanny Roach Primary Care Provid er Encounter Details Date Type Department Care Team (Late Contact Info) Description 09/03/2023 Documentation Only [facility] [address] [place] [address] Mae Olsen [address] [place] [address] Social History Tobacco Use Types [...] Visit [facility] [address] [place] [address] Tiara Barrientos MD [address] [place] [address] [place] [address] documented as of this encounter Visit Diagnoses Not on filedocumented in this encounter Care Teams Resource Engineer Relationship Specialty Start Date End Date Lanny Roach [address] [place] [address] PCP - General 03/10/24 documented as of this encounter
== END 2024-11-11 11:57 | disposition home or self-care (01) ==
LOC: HO.HPS 11:03
PROVIDERS: PCP Student in an Organized Health Care Education/Training Program; Referring Provider Student in an Organized Health Care Education/Training Program; Visit Provider Physician Assistant Medical
DX: Z87.891 Personal history of nicotine dependence (principal)
CPT/HCPCS: G0296

== ENCOUNTER 2024-11-11 11:17 | Outpatient (REF) | payer MEDICARE, MEDICAID, SELFPAY ==
--- NOTE | ~2024-11-11 | CT_ITS ---
CLINICAL HISTORY: Z87.891 - Personal history of nicotine dependence CT lung cancer screening (LDCT) Comparison: CT/SR - CT CHEST WO IV CON - 07/15/23 20:27 EST Technique: Axial CT images of the chest using low-dose technique. Referring provider counseled the patient on shared decision-making for LDCT screening. Additional counseling was provided on smoking cessation. Effective radiation dose total: DLP 47.3 mGycm, CTDIvol 1.5 mGy. Findings: Lung: Mild emphysema. No suspicious pulmonary nodules. Coronary artery calcifications: Mild Limited upper abdomen: Unremarkable Other: Skin thickening of the right breast Impression: LungRADS 1: Negative exam. Continue annual screening with low dose Chest CT in 12 months. ##L1## Category 1: Normal; continue annual screening Category 2: Benign appearance or behavior, continue annual screening Category 3: Probably benign, [address] recommended Category 4A: Suspicious, [address] recommended; may consider PET/CT Category 4B: Suspicious, Additional diagnostics and/or tissue sampling recommended Category 4X: Suspicious, Additional diagnostics and/or tissue sampling recommended Category 0: Recalls (incomplete screen due to Incomplete coverage, Noise, Respiratory motion, Expiration, Obscured by acute abnormality) This document has been electronically signed by: Falguni Calderon MD on 11/12/2024 21:12:26
== END 2024-11-11 11:18 | disposition home or self-care (01) ==
LOC: HO.CT 11:17
PROVIDERS: PCP Student in an Organized Health Care Education/Training Program; Visit Provider Physician Assistant Medical
DX: Z12.2 Encounter for screening for malignant neoplasm of respiratory organs (principal); Z87.891 Personal history of nicotine dependence
CPT/HCPCS: 71271; G0296

== ENCOUNTER → 2024-11-11 11:19 | Outpatient (BNV) | payer MEDICARE, MEDICAID, SELFPAY | PROVIDERS: PCP Student in an Organized Health Care Education/Training Program; Visit Provider Nuclear Medicine | DX: Z12.2 Encounter for screening for malignant neoplasm of respiratory organs (principal); Z87.891 Personal history of nicotine dependence | CPT/HCPCS: 71271 ==

== ENCOUNTER 2024-11-18 09:48 | Outpatient (REF) | payer MEDICARE, MEDICAID, SELFPAY ==
--- OUTSIDE RECORDS SUMMARY | 2024-11-18 10:20 | XMS_ITS | Encounter Summary ---
Author Organization [facility] Address [address] [place] [address] Phone Care Team Providers Care Associate Professor Of Literature Name Role Phone Lanny Roach Primary Care Provid er Encounter Details Date Type Department Care Team (Late Contact Info) Description 09/03/2023 Documentation Only [facility] [address] [place] [address] Mae Olsen [address] [place] [address] Social History Tobacco Use Types [...] Department Care Team (Late Contact Info) Description 01/05/2025 3:00 PM EDT Office Visit [facility] [address] [place] [address] Tiara Barrientos MD [address] [place] [address] [place] [address] documented as of this encounter Visit Diagnoses Not on filedocumented in this encounter Care Teams Associate Professor Of Literature Relationship Specialty Start Date End Date Lanny Roach [address] [place] [address] PCP - General 03/10/24 documented as of this encounter
[2024-11-18 11:33] LABS: Hematocrit 42.2 % (37.0-47.0); Hemoglobin 14.3 g/dl (12.0-16.0); Mean Corpuscular HGB Conc 33.9 g/dl (31.0-35.0); Mean Corpuscular Hemoglobin 30.1 pg (27.0-33.0); Mean Corpuscular Volume 88.8 fL (80.0-98.0); Mean Platelet Volume 10.2 fL (9.4-12.3); Platelet Count 233 X10*3/uL (160-400); Red Blood Count 4.75 X10*6/uL (4.20-5.50); Red Cell Distribution Width 15.1 % (11.0-16.0); White Blood Count 7.2 X10*3/uL (4.8-10.8)
[2024-11-18 11:46] LABS: Estimated Average Glucose 134 mg/dL; Hemoglobin A1c % 6.3 % (<6.0)
[2024-11-18 11:47] LABS: Creatinine Urine 54.36 mg/dL; Microalbum/Creatinine Ratio Ur 487.4 ug/mg cr (<30)
[2024-11-18 11:56] LABS: Alanine Aminotransferase 21 U/L (0-31); Albumin Level 4.3 g/dL (3.5-5.0); Alkaline Phosphatase 119 U/L (39-117); Anion Gap 14 (12-20); Aspartate Amino Transferase 29 U/L (5-31); Bilirubin Total 0.5 mg/dL (0.0-1.0); Blood Urea Nitrogen 15 mg/dL (9-16); Calcium 9.9 mg/dL (8.4-10.2); Carbon Dioxide 23 mmol/L (22-29); Chloride 109 mmol/L (96-108); Cholesterol 121 mg/dL (<200); Estimated Glomerular Filt Rate 55; Glucose Random 119 mg/dL (60-115); HDL Cholesterol 33 mg/dL (>40); LDL Cholesterol Calculated 59 mg/dL (<100); Sodium 142 mmol/L (135-145); Total Protein 6.8 g/dL (6.5-8.0); Triglycerides 149 mg/dL (<150)
[2024-11-18 12:01] LABS: TSH reflex Free T4 4.28 uIU/mL (0.32-4.0); Vitamin D 25-OH Total 62.9 ng/mL (>30)
[2024-11-18 12:09] LABS: Vitamin B12 395 pg/mL (200-900)
[2024-11-18 12:35] LABS: Free T4 (Free Thyroxine) 0.83 ng/dL (0.71-1.85)
== END 2024-11-18 09:49 | disposition home or self-care (01) ==
LOC: HO.HHCL 09:48
PROVIDERS: PCP Student in an Organized Health Care Education/Training Program; Visit Provider Student in an Organized Health Care Education/Training Program
DX: Z00.00 Encounter for general adult medical examination without abnormal findings (principal); Z13.1 Encounter for screening for diabetes mellitus; Z13.6 Encounter for screening for cardiovascular disorders
CPT/HCPCS: 36415; 80053; 80061; 82043; 82306; 82570; 82607; 82746; 83036; 84439; 84443; 85027

== ENCOUNTER 2025-01-19 13:50 | Outpatient (REF) | payer MEDICARE, SELFPAY ==
--- NOTE | ~2025-01-19 | XR_ITS ---
EXAMINATION: XR LUMBOSACRAL SPINE CLINICAL INFORMATION: lower back pain COMPARISON: None available. TECHNIQUE: Three views of the lumbosacral spine. FINDINGS: There are 5 nonrib-bearing lumbar segments. There is 13 degrees levoscoliosis with apex at the inferior L2. L2-3 demonstrates mild disc space narrowing and subtle retrolisthesis. Disc spaces are preserved otherwise. L3-4 demonstrates mild facet sclerosis. There is moderate abdominal aortic vascular calcifications extending into the common iliac arteries. XR/XR lumbar spine 2-3V IMPRESSION: Mild degenerative changes, as noted above. Electronically signed by: Cuco Sal MD 01/19/2025 02:30 PM EDT
--- OUTSIDE RECORDS SUMMARY | 2025-01-19 14:37 | XMS_ITS | Encounter Summary ---
Author Organization [facility] Address [address] [place] [address] Phone Care Team Providers Care Mobile Unit Assistant Name Role Phone Lanny Roach Primary Care Provid er Encounter Details Date Type Department Care Team (Late Contact Info) Description 09/03/2023 Documentation Only [facility] [address] [place] [address] Mae Olsen [address] [place] [address] Social History Tobacco Use Types [...] Care Team (Late st Contact Info) Description 07/06/2025 2:00 PM EST Office Visit [facility] [address] [place] [address] Tiara Barrientos MD [address] [place] [address] [place] [address] documented as of this encounter Visit Diagnoses Not on filedocumented in this encounter Care Teams Mobile Unit Assistant Relationship Specialty Start Date End Date Lanny Roach [address] [place] [phone] PCP - General 03/10/24 documented as of this encounter
--- OUTSIDE RECORDS SUMMARY | 2025-01-19 14:37 | XMS_ITS | Encounter Summary ---
Author Organization [facility] Address [address] [place] [address] Phone Care Team Providers Care Automotive Parts Salesperson Name Role Phone Lanny Roach Primary Care Provid er Encounter Details Date Type Department Care Team (Late Contact Info) Description 09/03/2023 Documentation Only [facility] [address] [place] [address] Mae Olsen [address] [place] [address] Social History Tobacco Use Types [...] [facility] [address] [place] [address] Tiara Barrientos MD [address] [place] [address] [place] [address] documented as of this encounter Visit Diagnoses Not on filedocumented in this encounter Care Teams Automotive Parts Salesperson Relationship Specialty Start Date End Date Lanny Roach [address] [place] [phone] PCP - General 03/10/24 documented as of this encounter
--- OUTSIDE RECORDS SUMMARY | 2025-01-19 14:37 | XMS_ITS | Encounter Summary ---
Author Organization [facility] Address [address] [place] [address] Phone Care Team Providers Care Senior Brand Manager Name Role Phone Lanny Roach Primary Care Provid er Encounter Details Date Type Department Care Team (Late Contact Info) Description 09/03/2023 Documentation Only [facility] [address] [place] [address] Mae Olsen [address] [place] [address] Social History Tobacco Use Types [...] Visit [facility] [address] [place] [address] Tiara Barrientos MD [address] [place] [address] [place] [address] documented as of this encounter Visit Diagnoses Not on filedocumented in this encounter Care Teams Senior Brand Manager Relationship Specialty Start Date End Date Lanny Roach [address] [place] [phone] PCP - General 03/10/24 documented as of this encounter
--- OUTSIDE RECORDS SUMMARY | 2025-01-19 14:37 | XMS_ITS | Encounter Summary ---
Author Organization [facility] Address [address] [place] [address] Phone Care Team Providers Care Orthopedic Designer Name Role Phone Lnany Roach Primary Care Provid er Encounter Details Date Type Department Care Team (Late Contact Info) Description 09/03/2023 Documentation Only [facility] [address] [place] [address] Mae Olsen [address] [place] [address] Social History Tobacco Use Types [...] [facility] [address] [place] [address] Tiara Barrientos MD [address] [place] [address] [place] [address] documented as of this encounter Visit Diagnoses Not on filedocumented in this encounter Care Teams Orthopedic Designer Relationship Specialty Start Date End Date Lanny Roach [address] [place] [address] PCP - General 03/10/24 documented as of this encounter
--- OUTSIDE RECORDS SUMMARY | 2025-01-19 14:37 | XMS_ITS | Encounter Summary ---
Author Organization [facility] Address [address] [place] [address] Phone Care Team Providers Care Journeyman Wireman Name Role Phone Lanny Roach Primary Care Provid er Encounter Details Date Type Department Care Team (Late Contact Info) Description 09/03/2023 Documentation Only [facility] [address] [place] [address] Mae Olsen [address] [place] [address] Social History Tobacco Use Types [...] [facility] [address] [place] [address] Tiara Barrientos MD [address] [place] [address] [place] [address] documented as of this encounter Visit Diagnoses Not on filedocumented in this encounter Care Teams Journeyman Wireman Relationship Specialty Start Date End Date Lanny Roach [address] [place] [address] PCP - General 03/10/24 documented as of this encounter
--- OUTSIDE RECORDS SUMMARY | 2025-01-19 14:37 | XMS_ITS | Encounter Summary ---
Author Organization [employer] Address [address] [place] [address] [address] [place] [address] Care Team Providers Care Spiral Runner Name Role Phone Lanny Ewing MD Primary Care Pro vider Reason for Visit * Reason Comments Med Refill Encounter Details Date Type Department Care Team ([facility] st Contact Info) Description 12/23/2023 Refill [facility] [address] [place] [address] Lanny Ewing MD [address] [place] [address] Social History Tobacco Use Types Packs/Day Years [...] Care Team (Late st Contact Info) Description 01/26/2025 2:15 PM EDT Office Visit [facility] [address] [place] [address] Lanny Ewing MD [address] [place] [address] [phone] documented as of this encounter Goals Goal Patient Goal Type Associated Problems Recent Progress Patient-Stated? Author Blood Pressure < 140/90 Blood Pressure 120/78(2024 2:00 PM EDT) No Jessica Evans Hemoglobin A1c < 7 Result Component 6.3( 9:57 AM EDT) No Jessica Evans documented as of this encounter Visit Diagnoses Not on filedocumented in this encounter Additional Health Concerns Assessment Noted Time PHQ-9 Depression Total Score: 7 09/11/19 24 2:05 PM EDT documented as of this encounter Care Teams Spiral Runner Relationship Specialty Start Date End Date Lanny Ewing MD [address] [place] [phone] PCP - General Internal Medicine 03/03/23 documented as of this encounter
--- OUTSIDE RECORDS SUMMARY | 2025-01-19 14:37 | XMS_ITS | Encounter Summary ---
Author Organization [facility] Address [address] [place] [address] Phone Care Team Providers Care Tuckpointer Cleaner Caulker Name Role Phone Lanny Roach Primary Care Provid er Encounter Details Date Type Department Care Team (Late Contact Info) Description 09/03/2023 Documentation Only [facility] [address] [place] [address] Mae Olsen [address] [place] [address] Social History Tobacco Use Types [...] [facility] [address] [place] [address] Tiara Barrientos MD [address] [place] [address] [place] [address] documented as of this encounter Visit Diagnoses Not on filedocumented in this encounter Care Teams Tuckpointer Cleaner Caulker Relationship Specialty Start Date End Date Lanny Roach [address] [place] [phone] PCP - General 03/10/24 documented as of this encounter
--- OUTSIDE RECORDS SUMMARY | 2025-01-19 14:37 | XMS_ITS | Encounter Summary ---
Author Organization [facility] Address [address] [place] [address] Phone Care Team Providers Care Access Assoc Name Role Phone Lanny Roach Primary Care Provid er Encounter Details Date Type Department Care Team (Late Contact Info) Description 09/03/2023 Documentation Only [facility] [address] [place] [address] Mae Olsen [address] [place] [address] Social History Tobacco Use Types [...] Visit [facility] [address] [place] [address] Tiara Barrientos MD [address] [place] [address] [place] [address] documented as of this encounter Visit Diagnoses Not on filedocumented in this encounter Care Teams Access Assoc Relationship Specialty Start Date End Date Lanny Roach [address] [place] [address] PCP - General 03/10/24 documented as of this encounter
--- OUTSIDE RECORDS SUMMARY | 2025-01-19 14:37 | XMS_ITS | Encounter Summary ---
Author Organization [facility] Address [address] [place] [address] Phone Care Team Providers Care Wire Walker Name Role Phone Lanny Roach Primary Care Provid er Encounter Details Date Type Department Care Team (Late Contact Info) Description 09/03/2023 Documentation Only [facility] [address] [place] [address] Mae Olsen [address] [place] [address] Social History Tobacco Use Types [...] Visit [facility] [address] [place] [address] Tiara Barrientos MD [address] [place] [address] [place] [address] documented as of this encounter Visit Diagnoses Not on filedocumented in this encounter Care Teams Wire Walker Relationship Specialty Start Date End Date Lanny Roach [address] [place] [phone] PCP - General 03/10/24 documented as of this encounter
--- OUTSIDE RECORDS SUMMARY | 2025-01-19 14:38 | XMS_ITS | Encounter Summary ---
Author Organization [facility] Address [address] [facility] [address] [place] [address] Phone Care Team Providers Care Compressor Operator Name Role Phone Lanny Roach Primary Care Provid er Encounter Details Date Type Department Care Team (Late st Contact Info) Description 10/07/2022 Documentation Only [facility] [address] [place] [address] [place], [place] [address] [place] [address] Social History Tobacco Use Types [...] Visit [facility] [address] [place] [address] Tiara Barrientos MD [address] [place] [address] [place] [address] documented as of this encounter Visit Diagnoses Not on filedocumented in this encounter Care Teams Compressor Operator Relationship Specialty Start Date End Date Lanny Roach [address] [place] [address] [phone] PCP - General 03/10/24 documented as of this encounter
--- OUTSIDE RECORDS SUMMARY | 2025-01-19 14:38 | XMS_ITS | Encounter Summary ---
Author Organization [employer] Address [address] [place] [address] [address] [place] [address] Care Team Providers Care Information Security Associate Name Role Phone Lanny Ewing MD Primary Care Pro vider Encounter Details Date Type Department Care Team ([facility] st Contact Info) Description 11/14/2024 Results Follow-Up [facility] [address] [place] [address] Lanny Ewing MD [address] [place] [address] CT Lung Screening Low dose Social History Tobacco Use Types Packs/Day Years Used Date Smoking Tobacco: Former Cigarettes Passive Smoke Exposure: Never Smokeless Tobacco: Never Comments:Started smoking 17 y of age ,stopped at her 60s ,smoked for 55 years ,stopped now 12 y ago, used to smoke 10 cig a day patient calc 27.5 Alcohol Use Standard Drinks/Week Comments Never 0 (1 standard drink = 0.6 oz pur e alcohol) Depression Answer Date Recorded Patient Health Questionnaire-9 Score 0 09/16/2024 Patient Health Questionnaire-9 Score 0 09/16/2024 Last PHQ-9: Questionnaire Data Not on file 0 09/16/2024 Housing Stability Answer Date Recorded What is your housing situation today? I have maryam baugh 09/08/[address] you li ve. Do you have problems with any of the following? None of the above 09/08/2024 Food Insecurity Answer Date Recorded Within the past 12 months, y ou worried that your food would run out before you got money to buy more: Never True 09/08/2024 Within the past 12 months,th e food you bought just didn't last and you didn't have enough money to get more: Never True Transportation Answer Date Recorded In the past 12 months, has l ack of transportation kept you from medical appts, meetings, work or from getting things needed for daily living? Yes, it has kept me from medical appointments or getting medications. 09/08/2024 Utilities Answer Date Recorded In the past 12 months, has t he electric, gas, oil or water company threatened to shut off services in your home? No 09/08/2024 Depression Answer Date Recorded Patient Health Questionnaire-2 Score 0 09/16/2024 Internet Access Answer Date Recorded Internet Access Q1 Yes 09/08/2024 Internet Access Q2 Not on file 09/08/2024 Comments Unknown Sex and Gender Information Value Date Recorded Sex Assigned at Female 03/24/2022 10:17 AM EDT Legal Sex Female 10:17 AM EDT Gender Identity Female 03/24/2022 10:17 AM EDT Sexual Orientation Straight 03/24/2022 10 :17 AM EDT documented as of this encounter Miscellaneous Notes * Result Encounter Note - Lanny Vasquez MD - 11/14/2024 10:45 AM EDT Please call patient to advise to come to already scheduled apt with me to go over image result Thanks documented in this encounter Plan of Treatment Upcoming Encounters Date Type Department Care Team (Late st Contact Info) Description 01/26/2025 2:15 PM EDT Office Visit [facility] [address] [place] [address] Lanny Ewing MD [address] [place] [address] documented as of this encounter Goals Goal [...] Assessment Noted Time PHQ-9 Depression Total Score: 0 09/17/19 25 10:40 AM EDT documented as of this encounter Care Teams Information Security Associate Relationship Specialty Start Date End Date Lanny Ewing MD [address] [place] [id number] PCP - General Internal Medicine 03/03/23 documented as of this encounter
--- OUTSIDE RECORDS SUMMARY | 2025-01-19 14:38 | XMS_ITS | Encounter Summary ---
Author Organization [facility] Address [address] [place] [address] Phone Care Team Providers Care Communications Designer Name Role Phone Lanny Roach Primary Care Provid er Encounter Details Date Type Department Care Team (Late Contact Info) Description 09/03/2023 Documentation Only [facility] [address] [place] [address] Mae Olsen [address] [place] [address] Social History Tobacco Use Types [...] Visit [facility] [address] [place] [address] Tiara Barrientos MD [address] [place] [address] [place] [address] documented as of this encounter Visit Diagnoses Not on filedocumented in this encounter Care Teams Communications Designer Relationship Specialty Start Date End Date Lanny Roach [address] [place] [phone] PCP - General 03/10/24 documented as of this encounter
--- OUTSIDE RECORDS SUMMARY | 2025-01-19 14:38 | XMS_ITS | Encounter Summary ---
Author Organization [facility] Address [address] [place] [address] Phone Care Team Providers Care Architectural Manager Name Role Phone Lanny Roach Primary Care Provid er Encounter Details Date Type Department Care Team (Late Contact Info) Description 09/03/2023 Documentation Only [facility] [address] [place] [address] Mae Olsen [address] [place] [address] Social History Tobacco Use Types [...] [facility] [address] [place] [place] [address] Tiara Barrientos MD [address] [place] [address] [place] [address] documented as of this encounter Visit Diagnoses Not on filedocumented in this encounter Care Teams Architectural Manager Relationship Specialty Start Date End Date Lanny Roach [address] [place] [phone] PCP - General 03/10/24 documented as of this encounter
--- OUTSIDE RECORDS SUMMARY | 2025-01-19 14:38 | XMS_ITS | Encounter Summary ---
Author Organization [facility] Address [address] [place] [address] Phone Care Team Providers Care Bass Fisher Name Role Phone Lanny Roach Primary Care Provid er Encounter Details Date Type Department Care Team (Late Contact Info) Description 09/03/2023 Documentation Only [facility] [address] [place] [address] Mae Olsen [address] [place] [address] Social History Tobacco Use Types [...] [facility] [address] [place] [address] Tiara Barrientos MD [address] [place] [address] [place] [address] documented as of this encounter Visit Diagnoses Not on filedocumented in this encounter Care Teams Bass Fisher Relationship Specialty Start Date End Date Lanny Roach [address] [place] [address] PCP - General 03/10/24 documented as of this encounter
--- OUTSIDE RECORDS SUMMARY | 2025-01-19 14:38 | XMS_ITS | Encounter Summary ---
Author Organization [employer] Address [address] [place] [address] [place] [address] Care Team Providers Care Rotary Filter Operator Name Role Phone Lanny Ewing MD Primary Care Pro vider Reason for Visit * Reason Onset Date Comments Hospital Follow-up 07/20/2023 Encounter Details Date Type Department Care Team ([facility] st Contact Info) Description 07/20/2023 Telephone [facility] [address] [place] [address] Lanny Ewing MD [address] [place] [address] Hospital Follow-up Social History Tobacco Use Types [...] from pt requesting a HDF appt. Hospital: [facility] Date of admission: 06/14/2023 Discharge date: 06/17/2023 Diagnosed: Trouble Breathing/Asthma documented in this encounter Plan of Treatment Upcoming Encounters Date Type Department Care Team (Late st Contact Info) Description 01/26/2025 2:15 PM EDT Office Visit [facility] [address] [place] [address] Lanny Ewing MD [address] [place] [address] documented as of this encounter Visit Diagnoses Not on filedocumented in this encounter Care Teams Rotary Filter Operator Relationship Specialty Start Date End Date Lanny Ewing MD [address] [place] [phone] PCP - General Internal Medicine 03/03/23 documented as of this encounter
--- OUTSIDE RECORDS SUMMARY | 2025-01-19 14:38 | XMS_ITS | Encounter Summary ---
Author Organization [facility] Address [address] [place] [address] Phone Care Team Providers Care Antenna Design Engineer Name Role Phone Lanny Roach Primary Care Provid er Encounter Details Date Type Department Care Team (Late Contact Info) Description 09/03/2023 Documentation Only [facility] [address] [place] [address] Mae Olsen [address] [place] [address] Social History Tobacco Use Types [...] Visit [facility] [address] [place] [address] Tiara Barrientos MD [address] [place] [address] [place] [address] documented as of this encounter Visit Diagnoses Not on filedocumented in this encounter Care Teams Antenna Design Engineer Relationship Specialty Start Date End Date Lanny Roach [address] [place] [phone] PCP - General 03/10/24 documented as of this encounter
--- OUTSIDE RECORDS SUMMARY | 2025-01-19 14:38 | XMS_ITS | Encounter Summary ---
Author Organization [employer] Address [address] [place] [address] Care Team Providers Care Practical Nursing Faculty Name Role Phone Adenike Souza Primary Care Provider Lanny Whitaker MD Primary Care Pro vider Reason for Visit * Reason Comments Med Refill Encounter Details Date Type Department Care Team (Late st Contact Info) Description 01/02/2023 Refill [facility] [address] [place] [address] [phone] Adenike Souza FNP Social History Tobacco Use Types Packs/Day Years [...] Description 01/26/2025 2:15 PM EDT Office Visit [facility] [address] [place] [address] [phone] Lanny Ewing MD [address] [place], [place] [phone] documented as of this encounter Visit Diagnoses Not on filedocumented in this encounter Care Teams Practical Nursing Faculty Relationship Specialty Start Date End Date Adenike Souza FNP PCP - General Family Medicine 01/15/22 03/02/23 Lanny Ewing MD [address] [place] [address] [phone] PCP - General Internal Medicine 03/03/23 documented as of this encounter
--- OUTSIDE RECORDS SUMMARY | 2025-01-19 14:38 | XMS_ITS | Encounter Summary ---
Author Organization [facility] Address [address] [place] [address] Phone Care Team Providers Care Application Tester Name Role Phone Lanny Roach Primary Care Provid er Encounter Details Date Type Department Care Team (Late Contact Info) Description 11/17/2024 Documentation Only [facility] [address] [place] [address] Mae Olsen [address] [place] [address] Social History Tobacco Use Types [...] Visit [facility] [address] [place] [address] Tiara Barrientos MD [address] [place] [address] [place] [address] documented as of this encounter Visit Diagnoses Not on filedocumented in this encounter Care Teams Application Tester Relationship Specialty Start Date End Date Lanny Roach [address] [place] [phone] PCP - General 03/10/24 documented as of this encounter
--- OUTSIDE RECORDS SUMMARY | 2025-01-19 14:38 | XMS_ITS | Encounter Summary ---
Author Organization [employer] Address [address] [place] [address] 7t [place] [address] Care Team Providers Care Dust Sampler Name Role Phone Lanny Ewing MD Primary Care Pro vider Encounter Details Date Type Department Care Team (Late st Contact Info) Description 10/26/2023 Orders Only [facility] [address] [place] [address] Provider, MD Sherly Social History Tobacco Use [...] Description 01/26/2025 2:15 PM EDT Office Visit [facility] [address] [place] [address] Lanny Ewing MD [address] [place] [address] documented as of this encounter Goals Goal [...] documented as of this encounter Care Teams Dust Sampler Relationship Specialty Start Date End Date Lanny Ewing MD [address] [place] [address] [phone] PCP - General Internal Medicine 03/03/23 documented as of this encounter
--- OUTSIDE RECORDS SUMMARY | 2025-01-19 14:38 | XMS_ITS | Encounter Summary ---
Author Organization [facility] Address [address] [place] [address] Phone Care Team Providers Care Assistant Sales Director Name Role Phone Lanny Roach Primary Care Provid er Encounter Details Date Type Department Care Team (Late Contact Info) Description 09/03/2023 Documentation Only [facility] [address] [place] [address] Mae Olsen [address] [place] [address] Social History Tobacco Use Types [...] Visit [facility] [address] [place] [address] Tiara Barrientos MD [address] [place] [address] [place] [address] documented as of this encounter Visit Diagnoses Not on filedocumented in this encounter Care Teams Assistant Sales Director Relationship Specialty Start Date End Date Lanny Roach [address] [place] [phone] PCP - General 03/10/24 documented as of this encounter
--- OUTSIDE RECORDS SUMMARY | 2025-01-19 14:38 | XMS_ITS | Encounter Summary ---
Author Organization [employer] Address [address] [place] [address] 7t [place] [address] Care Team Providers Care Chimney Builder Helper Name Role Phone Lanny Ewing MD Primary Care Pro vider Reason for Visit * Reason Comments Med Refill Encounter Details Date Type Department Care Team ([facility] st Contact Info) Description 09/12/2024 Refill [facility] [address] [place], [place] [phone] Lanny Ewing MD [address] [place] [address] Social History Tobacco Use Types Packs/Day Years [...] housing situation today? I have maryam amauri 09/08/[address] you li [...] Description 01/26/2025 2:15 PM EDT Office Visit [facility] [address] [place] [address] Lanny Ewing MD [address] [place] [address] documented as of this encounter Goals Goal [...] documented as of this encounter Care Teams Chimney Builder Helper Relationship Specialty Start Date End Date Lanny Ewing MD [address] [place] [phone] PCP - General Internal Medicine 03/03/23 documented as of this encounter
--- OUTSIDE RECORDS SUMMARY | 2025-01-19 14:38 | XMS_ITS | Encounter Summary ---
Author Organization [facility] Address [address] [place] [address] Phone Care Team Providers Care Laundry Bag Punch Operator Name Role Phone Lanny Roach Primary Care Provid er Encounter Details Date Type Department Care Team (Late Contact Info) Description 09/03/2023 Documentation Only [facility] [address] [place] [address] Mae Olsen [address] [place] [address] Social History Tobacco Use Types [...] [facility] [address] [place] [address] Tiara Barrientos MD [address] [place] [address] [place] [address] documented as of this encounter Visit Diagnoses Not on filedocumented in this encounter Care Teams Laundry Bag Punch Operator Relationship Specialty Start Date End Date Lanny Roach [address] [place] [phone] PCP - General 03/10/24 documented as of this encounter
--- OUTSIDE RECORDS SUMMARY | 2025-01-19 14:38 | XMS_ITS | Encounter Summary ---
Author Organization [employer] Address [address] [place] [address] 7t [place] [address] Care Team Providers Care Apartment Groundskeeper Name Role Phone Lanny Ewing MD Primary Care Pro vider Reason for Referral * Consultation (Routine) - Closed Specialty Diagnoses / Procedures Referred By Kulwinder dickson Referred To Contact Pharmacy Diagnoses Essential hypertension Gertrudis Holder MD [address] [place] [address] Phone: tel: fax: Referral ID Status Reason Start Date Expiration Date V isits Requested Visits Authorized [id number] Closed Continuity of Care 09/22/2024 09/22/2025 6 6 Encounter Details Date Type Department Care Team (Late st Contact Info) Description 09/20/2024 Orders Only [facility] [address] [place], [place] [phone] Gertrudis Holder MD [address] [place], [place] [phone] Essential hypertension (Primary Dx) Social History Tobacco Use Types [...] Description 01/26/2025 2:15 PM EDT Office Visit [facility] [address] [place] [address] Lanny Ewing MD [address] [place], [place] [phone] Scheduled Referrals Name Type Priority Associated Diagnoses Orde r Schedule Referral to Pharmacy MTM Outpatient Referral Routine Essential hypertension Ordered: 09/22/2024 documented as of this encounter Goals Goal Patient Goal Type Associated Problems Recent Progress Patient-Stated? Author Blood Pressure < 140/90 Blood Pressure 120/78(2024 2:00 PM EDT) No Jessica Evans Hemoglobin A1c < 7 Result Component 6.3( 9:57 AM EDT) No Jessica Evans documented as of this encounter Visit Diagnoses Diagnosis Essential hypertension- Primary Unspecified essential hypertension documented in this encounter Additional Health Concerns Assessment Noted Time PHQ-9 Depression Total Score: 0 09/17/19 25 10:40 AM EDT documented as of this encounter Care Teams Apartment Groundskeeper Relationship Specialty Start Date End Date Lanny Ewing MD [address] [place] [phone] PCP - General Internal Medicine 03/03/23 documented as of this encounter
--- OUTSIDE RECORDS SUMMARY | 2025-01-19 14:38 | XMS_ITS | Encounter Summary ---
Author Organization [facility] Address [address] [place] [address] Phone Care Team Providers Care Tape Stringer Name Role Phone Lanny Roach Primary Care Provid er Encounter Details Date Type Department Care Team (Late Contact Info) Description 09/03/2023 Documentation Only [facility] [address] [place] [address] Mae Olsen [address] [place], [place] [...] [facility] [address] [place] [address] Tiara Barrientos MD [address] [place] [address] [place] [address] documented as of this encounter Visit Diagnoses Not on filedocumented in this encounter Care Teams Tape Stringer Relationship Specialty Start Date End Date Lanny Roach [address] [place] [phone] PCP - General 03/10/24 documented as of this encounter
--- OUTSIDE RECORDS SUMMARY | 2025-01-19 14:38 | XMS_ITS | Encounter Summary ---
Author Organization [facility] Address [address] [place] [address] Phone Care Team Providers Care Circuit Walker Name Role Phone Lanny Roach Primary Care Provid er Encounter Details Date Type Department Care Team (Late Contact Info) Description 11/17/2024 Documentation Only [facility] [address] [place] [address] Mae Olsen [address] [place] [address] Social History Tobacco Use Types [...] Visit [facility] [address] [place] [address] Tiara Barrientos MD [address] [place] [address] [place] [address] documented as of this encounter Visit Diagnoses Not on filedocumented in this encounter Care Teams Circuit Walker Relationship Specialty Start Date End Date Lanny Roach [address] [place] [phone] PCP - General 03/10/24 documented as of this encounter
--- OUTSIDE RECORDS SUMMARY | 2025-01-19 14:38 | XMS_ITS | Encounter Summary ---
Author Organization [facility] Address [address] [place] [address] Phone Care Team Providers Care Installation Specialist Name Role Phone Lanny Roach Primary Care Provid er Encounter Details Date Type Department Care Team (Late Contact Info) Description 09/03/2023 Documentation Only [facility] [address] [place] [address] Mae Olsen [address] [place] [address] Social History Tobacco Use Types [...] [facility] [address] [place] [address] Tiara Barrientos MD [address] [place] [address] [place] [address] documented as of this encounter Visit Diagnoses Not on filedocumented in this encounter Care Teams Installation Specialist Relationship Specialty Start Date End Date Lanny Roach [address] [place] [phone] PCP - General 03/10/24 documented as of this encounter
--- OUTSIDE RECORDS SUMMARY | 2025-01-19 14:38 | XMS_ITS | Encounter Summary ---
Author Organization [facility] Address [address] [place] [address] Phone Care Team Providers Care Product Design Manager Name Role Phone Lanny Roach Primary Care Provid er Encounter Details Date Type Department Care Team (Late Contact Info) Description 09/03/2023 Documentation Only [facility] [address] [place] [address] Mae Olsen [address] [place] [address] Social History Tobacco Use Types [...] [facility] [address] [place] [address] Tiara Barrientos MD [address] [place] [address] [place] [address] documented as of this encounter Visit Diagnoses Not on filedocumented in this encounter Care Teams Product Design Manager Relationship Specialty Start Date End Date Lanny Roach [address] [place] [phone] PCP - General 03/10/24 documented as of this encounter
--- OUTSIDE RECORDS SUMMARY | 2025-01-19 14:38 | XMS_ITS | Encounter Summary ---
Author Organization [facility] Address [address] [place] [address] Phone Care Team Providers Care Hazardous Waste Material Technician Name Role Phone Lanny Roach Primary Care Provid er Encounter Details Date Type Department Care Team (Late Contact Info) Description 11/17/2024 Documentation Only [facility] [address] [place] [address] Mae Olsen [address] [place] [address] Social History Tobacco Use Types [...] Visit [facility] [address] [place] [address] Tiara Barrientos MD [address] [place] [address] [place] [address] documented as of this encounter Visit Diagnoses Not on filedocumented in this encounter Care Teams Hazardous Waste Material Technician Relationship Specialty Start Date End Date Lanny Roach [address] [place] [address] PCP - General 03/10/24 documented as of this encounter
--- OUTSIDE RECORDS SUMMARY | 2025-01-19 14:38 | XMS_ITS | Encounter Summary ---
Author Organization [facility] Address [address] [place] [address] Phone Care Team Providers Care High Frequency Mill Operator Name Role Phone Lanny Roach Primary Care Provid er Encounter Details Date Type Department Care Team (Late Contact Info) Description 09/03/2023 Documentation Only [facility] [address] [address] Mae Olsen [address] [place] [address] Social History Tobacco Use Types [...] [facility] [address] [place] [address] Tiara Barrientos MD [address] [place] [address] [place] [address] documented as of this encounter Visit Diagnoses Not on filedocumented in this encounter Care Teams High Frequency Mill Operator Relationship Specialty Start Date End Date Lanny Roach [address] [place] [phone] PCP - General 03/10/24 documented as of this encounter
--- OUTSIDE RECORDS SUMMARY | 2025-01-19 14:38 | XMS_ITS | Encounter Summary ---
Author Organization [employer] Address [address] [place] [address] 7[address] [place] [address] Care Team Providers Care Crt Name Role Phone Lanny Ewing MD Primary Care Pro vider Reason for Visit * Reason Comments Med Refill Encounter Details Date Type Department Care Team ([facility] st Contact Info) Description 07/19/2023 Refill [facility] [address] [place] [address] Lanny Ewing MD [address] [place] [address] Social History Tobacco Use Types Packs/Day Years [...] Description 01/26/2025 2:15 PM EDT Office Visit [facility] [address] [place] [address] [phone] Lanny Ewing MD [address] [place] [phone] documented as of this encounter Visit Diagnoses Not on filedocumented in this encounter Care Teams Crt Relationship Specialty Start Date End Date Lanny Ewing MD [address] [place] [address] [phone] PCP - General Internal Medicine 03/03/23 documented as of this encounter
--- OUTSIDE RECORDS SUMMARY | 2025-01-19 14:38 | XMS_ITS | Encounter Summary ---
Author Organization [facility] Address [address] [place] [address] Phone Care Team Providers Care Heel Builder Machine Name Role Phone Lanny Roach Primary Care Provid er Encounter Details Date Type Department Care Team (Late Contact Info) Description 09/03/2023 Documentation Only [facility] [address] [place] [address] Mae Olsen [address] [place] [address] Social History Tobacco Use Types [...] Visit [facility] [address] [place] [address] Tiara Barrientos MD [address] [place] [address] [place] [address] documented as of this encounter Visit Diagnoses Not on filedocumented in this encounter Care Teams Heel Builder Machine Relationship Specialty Start Date End Date Lanny Roach [address] [place] [phone] PCP - General 03/10/24 documented as of this encounter
--- OUTSIDE RECORDS SUMMARY | 2025-01-19 14:38 | XMS_ITS | Encounter Summary ---
Author Organization [facility] Address [address] [place] [address] Phone Care Team Providers Care Telemarketing Manager Name Role Phone Lanny Roach Primary Care Provid er Encounter Details Date Type Department Care Team (Late Contact Info) Description 09/03/2023 Documentation Only [facility] [address] [place] [address] Mae Olsen [address] [place] [address] Social History Tobacco Use Types [...] Visit [facility] [address] [place] [address] Tiara Barrientos MD [address] [place] [address] [place] [address] documented as of this encounter Visit Diagnoses Not on filedocumented in this encounter Care Teams Telemarketing Manager Relationship Specialty Start Date End Date Lanny Roach [address] [place] [phone] PCP - General 03/10/24 documented as of this encounter
--- OUTSIDE RECORDS SUMMARY | 2025-01-19 14:39 | XMS_ITS | Encounter Summary ---
Author Organization [facility] Address [address] [place] [address] Phone Care Team Providers Care Associate Art Director Name Role Phone Lanny Roach Primary Care Provid er Encounter Details Date Type Department Care Team (Late Contact Info) Description 09/03/2023 Documentation Only [facility] [address] [place] [address] Mae Olsen [address] [place] [address] Social History Tobacco Use Types [...] [facility] [address] [place] [address] Tiara Barrientos MD [address] [place] [address] [place] [address] documented as of this encounter Visit Diagnoses Not on filedocumented in this encounter Care Teams Associate Art Director Relationship Specialty Start Date End Date Lanny Roach [address] [place] [id number] PCP - General 03/10/24 documented as of this encounter
--- OUTSIDE RECORDS SUMMARY | 2025-01-19 14:39 | XMS_ITS | Encounter Summary ---
Author Organization [facility] Address [address] [place] [address] Care Team Providers Care Manager Licensing Name Role Phone Adenike Souza DRILLING MACHINE OPERATOR Primary Care Provider Lanny Whitaker MD Primary Care Pro vider Reason for Visit * Reason Comments Med Refill Encounter Details Date Type Department Care Team (Late st Contact Info) Description 12/06/2022 Refill [facility] [address] [place], [place] [phone] Vandana Elmore DO [address] [place], [place] [phone] Social History Tobacco Use Types Packs/Day Years [...] Description 01/26/2025 2:15 PM EDT Office Visit [facility] [address] [place], [place] [phone] Lanny Ewing MD [address] [place] [address] documented as of this encounter Visit Diagnoses Not on filedocumented in this encounter Care Teams Manager Licensing Relationship Specialty Start Date End Date Adenike Souza FNP PCP - General Family Medicine 01/15/22 03/02/23 Lanny Ewign MD [address] [place] [address] PCP - General Internal Medicine 03/03/23 documented as of this encounter
--- OUTSIDE RECORDS SUMMARY | 2025-01-19 14:39 | XMS_ITS | Clinical Summary ---
Author Organization [employer] Address [address] [place] [address] [address] [place] [address] Care Team Providers Care Mail Handler Equipment Operator Name Role Phone Lanny Ewing MD Primary Care Pro vider Allergies Active Allergy Reactions Criticality Noted Date Comments Abatacept Itching 07/15/2023 Adalimumab Dizziness 07/15/2023 Aspirin High 04/09/2016 Other reaction(s): pt states upset stomach Other Reaction(s): abdominal pain, Not available Latex Hives High 07/15/2023 Other Reaction(s): BLISTERS Nickel Itching,Rash Low 04/09/2016 Medications * This document contains information received from the source organization and may not represent a complete record from that organization. colchicine 0.6 MG tablet Take 0.6 mg by mouth if needed each day. 06/09/19 23 Active dexlansoprazol e (Dexilant) [address] capsule Take 1 capsule by mouth in the morning. 04/22/20 22 Active albuterol (2.5 MG/3ML) 0.083% nebulizer solutionIndica tions:Seasonal allergic rhinitis, unspecified trigger Take 3 mL (2.5 mg) by nebulization every 4 (four) hours if needed for wheezing or shortness of breath. 75 mL 3 03/05/20 23 Active Blood Pressure Monitor misc 1 Device Once per day. Needs large cuff size 1 each 10/16/19 24 Active Blood Glucose Monitoring Suppl (ONE TOUCH ULTRA 2) w/Device kitIndications :Type 2 diabetes mellitus with stage 3b chronic kidney disease, without long-term current use of insulin ([facility]) USE TO TEST BLOOD SUGAR TWICE A DAY 1 kit 03/01/20 24 Active Calcium Carb-Cholecalc iferol (Calcium 600+D) 600-20 MG-MCG tablet Take 1 tablet by mouth at noon and 1 tablet in the evening. 180 tablet 1 04/01/20 24 2024 Active glucose blood (OneTouch Verio) test stripIndicatio [...] per day. 100 each 04/25/20 24 Active allopurinol (Zyloprim) 300 MG tablet Take 300 mg by mouth in the morning. Active Bisacodyl EC 5 MG EC tablet take 2 tablets by mouth every day at bedtime 07/21/19 25 Active ramelteon (Rozerem) 8 MG tablet Take 1 tablet (8 mg) by mouth at bedtime. 30 tablet 2 09/17/19 25 2025 Active gabapentin (Neurontin) 300 MG capsule Take 1 capsule by mouth 3 times daily. 08/20/19 25 Active atorvastatin (Lipitor) 20 MG tablet Take 1 tablet (20 mg) by mouth at bedtime. 90 tablet 09/28/19 25 Active dapagliflozin (Farxiga) 10 MGIndications: Type 2 diabetes mellitus with stage 3b chronic kidney disease, without long-term current use of insulin (CMS/HCC) Take 1 tablet (10 mg) by mouth in the morning. 90 tablet 09/28/19 25 Active ferrous gluconate (Fergon) 324 (38 Fe) MG tablet Take 1 tablet (324 mg) by mouth every other day. TAKE 1 TABLET BY MOUTH EVERY OTHER DAY IN THE MORNING 45 tablet 1 09/28/19 25 Active Semaglutide, 2 MG/DOSE, (Ozempic, 2 MG/DOSE,) 8 MG/3ML solution pen-injectorIn dications:Type 2 diabetes mellitus with stage 3b chronic kidney disease, without long-term current use of insulin (CMS/HCC) Inject 0.75 mL (2 mg) under the skin 1 (one) time per week. 3 mL 5 09/28/19 25 Active loratadine (Claritin) 10 MG tabletIndicati ons:Seasonal allergic rhinitis, unspecified trigger TAKE 1 TABLET BY MOUTH EVERY MORNING 90 tablet 09/28/19 25 Active albuterol (Ventolin HFA) 108 (90 Base) MCG/ACT inhaler INHALE 2 PUFFS BY MOUTH EVERY 6 HOURS NEEDED 18 g 09/28/19 25 Active Anoro Ellipta 62.5-25 MCG/ACT aerosol powder INHALE 1 PUFF BY MOUTH EVERY DAY AT THE SAME TIME RINSE MOUTH AFTER USING IN THE MORNING RINSE MOUTH AFTER USING. 60 each 10/14/19 25 Active Azelastine HCl 137 MCG/SPRAY solution SPRAY 1 SPRAY IN EACH NOSTRIL TWICE DAILY DIRECTED 30 mL 10/14/19 25 Active lidocaine-pril ocaine (Emla) 2.5-2.5 % cream Apply topically if needed each day for mild pain. 5 g 11/24/19 25 Active acetaminophen (Tylenol Extra Strength) 500 MG tablet Take 1 tablet (500 mg) by mouth every 8 (eight) hours if needed for moderate pain or mild pain. 30 tablet 1 11/24/19 25 2024 Active lisinopril 5 MG tablet Take 1 tablet (5 mg) by mouth Once per day. 90 tablet 11/24/19 25 2025 Active metroNIDAZOLE (Metrolotion) 0.75 % lotion lotion Apply 1 Application. topically 2 times daily. 59 mL 11/24/19 25 2024 Active citalopram (CeleXA) 20 MG tablet TAKE 1 TABLET BY MOUTH EVERY MORNING 90 tablet 1 01/14/20 25 Active montelukast (Singulair) 10 MG tabletIndicati ons:Seasonal allergic rhinitis, unspecified trigger TAKE 1 TABLET BY MOUTH AT BEDTIME 90 tablet 1 01/14/20 25 Active montelukast (Singulair) 10 MG tabletIndicati ons:Seasonal allergic rhinitis, unspecified trigger TAKE 1 TABLET BY MOUTH AT BEDTIME 90 tablet 1 07/15/19 25 2024 Discontinued(R eorder (will not trigger notification to Pharmacy)) citalopram (CeleXA) 20 MG tablet Take 1 tablet (20 mg) by mouth in the morning. 90 tablet 09/28/19 25 2024 Discontinued Active Problems Problem Noted Date Diagnosed Date Abnormal TSH 11/24/2024 Poor memory 11/24/2024 Abnormal EKG 11/24/2024 Lumbalgia 09/16/2024 Health care maintenance 09/12/2023 History of tobacco [...] reduction recently since her Potassium was elevated. Watch Case Polisher informed her that her potassium level was [...] Encounters Date Type Department Care Team Description 01/13/2025 Refill [facility] [address] [place] [address] Lanny Ewing MD Seasonal allergic rhinitis, unspecified trigger 01/13/2025 Refill [facility] [address] [place] [address] Yuki Wang MD Seasonal allergic rhinitis, unspecified trigger 12/30/2024 Refill [facility] [address] [place] [address] Lanny Ewing MD 11/24/2024 Telephone [facility] [address] [place] [address] Lanny Ewing MD Prior Authorization 11/24/2024 Telephone [facility] [address] [place] [address] Lanny Ewing MD 11/23/2024 2:00 PM EDT Office Visit [facility] [address] [place] [address] Lanny Ewing MD Low back pain, unspecified back pain laterality, unspecified chronicity, unspecified whether sciatica present (Primary Dx); Essential hypertension; Abnormal thyroid function test; Abnormal EKG; Obesity (BMI 30-39.9); Type 2 diabetes mellitus with stage 3b chronic kidney disease, without long-term current use of insulin (CMS/HCC); Health care maintenance; Recurrent major depressive episodes, mild (CMS/HCC); Dermatitis; Insomnia, unspecified type; Abnormal TSH; Poor memory 11/23/2024 Telephone [facility] [address] [place] [address] Lanny Ewing MD Med Refill 11/23/2024 Travel 11/22/2024 Telephone [facility] [address] [place] [address] Lanny Ewing MD chart prep 11/18/2024 Results Follow-Up [facility] [address] [place] [address] Lanny Ewing MD Albumin, Random Urine W/Creatinine, CBC, Comprehensive Metabolic Panel, Additional followed-up results: 5 11/18/2024 Orders Only [facility] [address] [place] [address] Lanny Ewing MD 11/14/2024 Results Follow-Up [address] Lung Screening Low dose 11/11/2024 Orders Only [facility] External Provider, [facility] from Last 3 Months Immunizations Immunization Administration Dates Next Due Hep B, adult 01/18/2018,08/11/2017,07/14/2017 Influenza injectable quadriv alent preservative free 03/30/2023,05/23/2021,02/23/2018 Influenza, High Dose Seasona l, Preservative Free 04/01/2024,04/11/2019 Influenza, IIV3, injectable 02/19/2007 Influenza, Split (incl. [place] antigen) 02/08/2013 Influenza, seasonal, injecta ble, preservative free 02/28/2014 Pfizer Covid-19 Vaccine 12+ 09/19/2024,,03/22/2021 Pneumococcal Conjugate PCV 13 07/18/2021 Pneumococcal Conjugate PCV 20 11/06/2022 Pneumococcal Polysaccharide PPSV23 02/28/2014,,01/11/2003 RSV Bivalent 07/30/2023 TD (adult), 2 Lf tetanus tox oid, preservative free, adsorbed 01/11/2003 Tdap 10/25/2024,10/25/2014 Zoster, Recombinant 06/20/2022,11/26/2021 Zoster, live 07/14/2017 Family [...] the past 12 months, has t he [email or web address], gas, oil or water Con[employer] threatened to shut off services in your [...] Sign Reading Time Taken Comments Blood Pressure 120/78 11/23/2024 2:00 PM EDT Pulse 77 11/23/2024 2:00 PM EDT Temperature 36.3 C (97.3 F) 11/23/2024 2:00 PM EDT Respiratory Rate 20 11/23/2024 2:00 PM EDT Oxygen Saturation 99% 11/23/2024 2:00 PM EDT Inhaled Oxygen Concentration - - Weight 85.6 kg (188 lb 12.8 oz) 11/23/2024 2:00 PM EDT Height 161.9 cm (5' 3.75 ) 11/23/2024 2:00 PM ED T Body Mass Index 32.66 11/23/2024 2:00 PM EDT Plan of Treatment Upcoming Encounters Date Type Department Care Team (Late st Contact Info) Description 01/26/2025 2:15 PM EDT Office Visit [facility] [address] [place], [place] [phone] Lanny Ewing MD [address] [place], [place] [phone] Health Maintenance Due Date Last Done Comments CT Colonography 1950 FIT DNA/Cologuard 1950 FIT 1950 FOBT 1950 Sigmoidoscopy 1950 Eye Exam 1962 Diabetes: Foot Exam 12/11/2023 12/10/2022, Influenza Vaccine (#1) 2025 , 03/30/2023, 05/23/2021, Additional history exists COVID-19 Vaccine ( season) 2025 09/19/2024, 09/11/2023, 11/30/2021, Additional history exists Diabetes: Hemoglobin A1C 05/20/202511/18/2 025, 09/16/2024, 04/04/2024, Additional history exists Diagnostic Breast Imaging 06/28/20252024, 03/24/2024, 06/16/2022 Mammogram 06/28/2025 06/28/2024, 0 08/2024, 03/24/2024, Additional history exists SDOH Screening 09/08/2025 09/08/2024 Alcohol/Substance Use Screening 09/16/2025 09/16/2024 Depression Screening 09/16/2025 09/16/2024, 09/17/19 Lipid Panel 11/18/2025 11/18/2024, 03/25, 10/13/2023, Additional history exists Tobacco Screening 11/23/2025 11/23/2024 Colonoscopy 09/17/2028 09/17/2018 Colorectal Cancer Screening 09/17/2028 DTaP/Tdap/Td Vaccines (3 - Td or Tdap) 10/25/2034 10/25/2024, 10/25/2014, 01/11/2003 Hepatitis B Vaccines Completed 01/18/2018, 08/11/2017, 07/14/2017 Zoster Vaccines Completed 06/20/2022, 09/2021, 07/14/2017 Pneumococcal Vaccine: 50+ Years Completed 11/06/2022, 07/18/2021, 02/28/2014, Additional history exists RSV Patients and Patients Aged 60 years or older Completed 07/30/2023 Hepatitis C Screening Completed 10/13/2023 HIB Vaccines Aged Out No longer eligi [...] age to complete this topic Meningococcal B Vaccine Aged Out No l onger eligible based on patient's age to complete [...] 6.3( 9:57 AM EDT) No Jessica Evans Procedures Procedure Name Priority Date/Time Associated Diagnosis Comments XR LUMBAR SPINE 2-3 VIEWS Routine 01/19/2025 2:10 PM EDT Low back pain, unspecified back pain laterality, unspecified chronicity, unspecified whether sciatica present ECG 12-LEAD Routine 11/23/2024 2:56 PM EDT Essential hypertension T4, FREE Routine 11/18/2024 9:57 AM EDT VITAMIN B12/FOLATE, SERUM PANEL Routine 11/18/2024 9:57 AM EDT Annual physical exam VITAMIN D,25-OH,TOTAL,IA Routine 11/18/2024 9:57 AM EDT Annual physical exam Body mass index (BMI) 34.0-34.9, adult TSH W/REFLEX TO FT4 Routine 11/18/2024 9 :57 AM EDT Annual physical exam LIPID PANEL, STANDARD Routine 11/18/2024 9:57 AM EDT Annual physical exam HEMOGLOBIN A1C Routine 11/18/2024 9:57 AM EDT Annual physical exam COMPREHENSIVE METABOLIC PANEL Routine 11/18/2024 9:57 AM EDT Annual physical exam CBC Routine 11/18/2024 9:57 AM EDT Annual physical exam ALBUMIN, RANDOM URINE W/CREATININE Routine 11/18/2024 9:57 AM EDT Annual physical exam LDCT LUNG SCREENING Routine 11/12/2024 9 :12 PM EDT BI MAMMOGRAM DIAGNOSTIC TOMOSYNTHESIS BILATERAL Routine 06/28/2024 11:45 AM EST HEPATITIS C AB W/REFL TO HCV RNA, QN, PCR Routine 10/13/2023 10:30 AM EDT Annual physical exam HM COLONOSCOPY Routine 09/17/2018 1:13 PM EDT from Last 3 Months or Most Recently Relevant to Health Maintenance Results * XR Lumbar Spine 2-3 Views (01/19/2025 2:10 PM EDT) Anatomical Region Laterality Modality Spine, L-spine Radiographic Roula ging 01/19/2025 2:10 PM EDT Narrative 01/19/2025 2:33 PM EDT [place] [address] XRay Report Signed Patient: Mora Manrique MR#: [id number] 7 : 1950 Acct:[id number] Age/Sex: 74 / F ADM Date: 01/19/25 Loc: HO.MIKEY Attending Dr: Lanny Vasquez MD Ordering Physician: Lanny Ewing MD Date of Service: 01/19/25 Procedure(s): XR lumbar spine 2-3V Accession Number(s): [id number] cc: Lanny Ewing MD EXAMINATION: XR LUMBOSACRAL SPINE CLINICAL INFORMATION: lower back pain COMPARISON: None available. TECHNIQUE: Three views of the lumbosacral spine. FINDINGS: There are 5 nonrib-bearing lumbar segments. There is 13 degrees levoscoliosis with apex at the inferior L2. L2-3 demonstrates mild disc space narrowing and subtle retrolisthesis. Disc spaces are preserved otherwise. L3-4 demonstrates mild facet sclerosis. There is moderate abdominal aortic vascular calcifications extending into the common iliac arteries. XR/XR lumbar spine 2-3V IMPRESSION: Mild degenerative changes, as noted above. Electronically signed by: Cuco Sal MD 01/19/2025 02:30 PM EDT Dictated By: Cuco Sal MD Signed By: <Electronically signed by Cuco Sal MD in OV> 01/19/25 1430 DD/ 1410 TD/TT: 01/19/25 1419 Refrigeration Service Inspector: Procedure Note Donotuseinterpreter, Image - 01/19/[address] [address] XRay Report Signed Patient: Mora Manrique EMR#: [id number] 7 : 3Acct:[id number] Age/Sex: 74 / FADM Date: 01/19/25 Loc: HO.XRAY Attending Dr: Lanny Vasquez MD Ordering Physician: Lanny Ewing MD Date of Service: 01/19/25 Procedure(s): XR lumbar spine 2-3V Accession Number(s): [id number] cc: Lanny Ewing MD EXAMINATION: XR LUMBOSACRAL SPINE CLINICAL INFORMATION: lower back pain COMPARISON: None available. TECHNIQUE: Three views of the lumbosacral spine. FINDINGS: There are 5 nonrib-bearing lumbar segments. There is 13 degrees levoscoliosis with apex at the inferior L2. L2-3 demonstrates mild disc space narrowing and subtle retrolisthesis. Disc spaces are preserved otherwise. L3-4 demonstrates mild facet sclerosis. There is moderate abdominal aortic vascular calcifications extending into the common iliac arteries. XR/XR lumbar spine 2-3V IMPRESSION: Mild degenerative changes, as noted above. Electronically signed by: Cuco Sal MD 01/19/2025 02:30 PM EDT Dictated By: Cuco Sal MD Signed By: <Electronically signed by Cuco Sal MD in OV> 01/19/25 1430 DD/ 1410 TD/TT: 01/19/25 1419 Refrigeration Service Inspector: us Lanny Vasquez MD IMG XR PROCEDURES Final Result * ECG 12 lead (11/23/2024 2:56 PM EDT) Narrative Lanny Ewing MD - 11/23/2024 2:56 PM EDT EKG today HR 73, NSR, Qtc 420, sinus arrhythmia,horizontal axis, low QRS voltage ,aVL ,lead III ,aVF TWI us Lanny Vasquez MD ECG ORDERABLES F inal Result * Vitamin D, 25-Hydroxy, Total, Immunoassay (11/18/2024 9:57 AM EDT) Vitamin D 25-OH Total 62.9 >30 ng/mL [facility] Comment: Health Based Reference Values*< 20 ng/mL Fuuxcqxec78-38 ng/mL Insufficient> 30 ng/mL Sufficient*Wojciech ESCOBAR. N Engl J Med. 2007;357:266-280There is no well-established upper level of normal vitamin Dlevels. Some laboratories use 50 ng/mL as an upper limit ofnormal. However, toxicity is patient-dependent and may occurat any level. Careful correlation with the patient'spresentation is necessary and, if there is concern forvitamin D toxicity, treatment should be consideredirrespective of the serum level.Care must be taken in interpreting Vitamin D results fromdifferent laboratories and methodologies. Published datademonstrated that results from patients undergoinghemodialysis may show a negative bias when tested withvarious automated 25-OH vitamin D assays when compared toLC-MS/MS.When testing samples from patients whose predominant form ofVitamin D is Vitamin D2, such as patients receiving VitaminD2 supplementation, results that are subtherapeutic shouldbe confirmed with another method such as LC-MS/MS. Blood Venous blood specimen / Unknown 11/18/2024 9:57 AM EDT 11/18/2024 11:06 AM EDT us Lanny Vasquez MD LAB BLOOD ORDERAB LES Final Result [facility] [address] [place] [address] [phone] * Vitamin B12 (Cobalamin) and Folate Panel, Serum (11/18/2024 9:57 AM EDT) Vitamin B12 395 200 - 900 pg/mL [facility] Comment:NORMAL 200-900 PG/ML INDETERMINATE 160-199 PG/ML DEFICIENT < 160 PG/ML Folate 12.0 > or = 4.0 ng/mL [facility] Comment:Reference Values:> o r = 4.0 ng/mL< 4.0 ng/mL suggests folate deficiency Methotrexate, aminopterin and folinic acid(leucovorin) are chemotherapeutic agents whose molecularstructures are similar to folate; therefore, the Architectfolate assay cannot be used for patients using these drugs. Blood 11/18/2024 9:57 AM EDT 11/18/2024 11:06 AM EDT us Lanny Vasquez MD LAB BLOOD ORDERAB LES Final Result Performing Organization Address [facility]/ZIP Co de Phone Number [facility] [address] [place] [phone] * (ABNORMAL) TSH with Reflex to Free T4 (11/18/2024 9:57 AM EDT) TSH reflex Free T4 4.28(H) 0.32 - 4.0 uIU/mL [facility] Blood 11/18/2024 9:57 AM EDT 11/18/2024 11:06 AM EDT us Lanny Vasquez MD LAB BLOOD ORDERAB LES Final Result Performing Organization Address [facility] Co de Phone Number [facility] [address] [place] [phone] * (ABNORMAL) Albumin, Random Urine W/Creatinine (11/18/2024 9:57 AM EDT) Creatinine, Urine 54.36 mg/dL [facility] Microalbumin Urine 265.0 mg/L [facility] Microalbum Creatinine Ratio Ur 487.4(H) <30 ug/mg cr [facility] Comment:Albumin/Creatinine R atio Reference Ranges: Normal: < 30 ug/mg creatinine Microalbuminuria: 30 - 300 ug/mg creatinineClinical Albuminuria: > 300 ug/mg creatinine Urine (Urine, Random) 11/18/2024 9:57 AM EDT 11/18/2024 10:54 AM EDT us Lanny Vasquez MD LAB URINE ORDERAB LES Final Result [facility] [address] [place] [address] [phone] * CBC (11/18/2024 9:57 AM EDT) White Blood Count 7.2 4.8 - 10.8 X10*3/uL [facility] Red Blood Count 4.75 4.20 - 5.50 X10*6/uL [facility] Hemoglobin 14.3 12.0 - 16.0 g/dl [facility] Hematocrit 42.2 37.0 - 47.0 % [facility] Mean Corpuscular Volume 88.8 80.0 - 98.0 fL [facility] Mean Corpuscular Hemoglobin 30.1 27.0 - 33.0 pg [facility] Mean Corpuscular HGB Conc 33.9 31.0 - 35.0 g/dl [facility] Red Cell Distribution Width 15.1 11.0 - 16.0 % [facility] Platelet Count 233 160 - 400 X10*3/uL [facility] Mean Platelet Volume 10.2 9.4 - 12.3 fL [facility] NRBC Pct Auto 0.0 0.0 - 0.2 /100WBC [facility] NRBC Abs Auto 0.000 0.0 - 0.012 X10*3/uL [facility] Blood Venous blood specimen / Unknown 11/18/2024 9:57 AM EDT 11/18/2024 11:08 AM EDT us Lanny Vasquez MD LAB BLOOD ORDERAB LES Final Result [facility] [address] [place] [address] [phone] * T4, Free (11/18/2024 9:57 AM EDT) Free T4 (Free Thyroxine) 0.83 0.71 - 1.85 ng/dL [facility] 11/18/2024 9:57 AM EDT 11/18/2024 11:06 AM EDT us Lanny Vasquez MD LAB BLOOD ORDERAB LES Final Result [facility] [address] [place] [phone] * (ABNORMAL) Hemoglobin A1c (11/18/2024 9:57 AM EDT) Hemoglobin A1c 6.3(H) <6.0 % [facility] Comment:Hemoglobin A1C Refer ence Range Adults: 4.8 - 6.0 % Non diabetic: < 6.0 % Goal: < 7.0 %Additional Action Suggested: > 8.0 %Note: Hemoglobin A1c results are invalid for patients with abnormal amounts of HbF. Blood transfusions may impact the HbA1c concentration in the patient sample. Estimated Average Glucose 134 mg/dL [facility] Comment:eAG = Estimated ave rage glucose which is %A1C expressed asaverage glucose, using the formula of the Q4N-AzcjtruZbqnarz Glucose study (ADAG), Diabetes Care, Vol.31,#8,Dec. 2007 Blood Venous blood specimen / Unknown 11/18/2024 9:57 AM EDT 11/18/2024 11:08 AM EDT us Lanny Vasquez MD LAB BLOOD ORDERAB LES Final Result Performing Organization Address City/[facility]/ZIP Co de Phone Number [facility] [address] [place] [phone] * (ABNORMAL) Lipid Panel, Standard (11/18/2024 9:57 AM EDT) Triglycerides 149 <150 mg/dL [facility] Comment:Desirable Triglyceri de: less than 150 mg/dLBorderline High Triglyceride 150-199 mg/dLHigh Triglyceride: 200-499 mg/dLVery High Triglyceride: greater than or equal to 5OO mg/dL Cholesterol 121 <200 mg/dL [facility] Comment:Desirable Cholestero l: less than 200 mg/dLBorderline High Cholesterol: 200-239 mg/dLHigh Cholesterol: greater than 239 mg/dL LDL Cholesterol Calculated 59 <100 mg/dL [facility] Comment:Desirable LDL: less than 100 mg/dLNear Optimal/Above Optimal LDL: 110- 129 mg/dLBorderline High LDL: 130-159 mg/dLHigh LDL: 160-189 mg/dLVery High LDL: greater than or equal to 190 mg/dL HDL Cholesterol 33(L) >40 mg/dL [facility] Comment:Desirable HDL: great er than 40 mg/dL Note: This HDL assay may give artificially low results in patients with liver disease. Blood Venous blood specimen / Unknown 11/18/2024 9:57 AM EDT 11/18/2024 11:06 AM EDT us Lanny Vasquez MD LAB BLOOD ORDERAB LES Final Result [facility] [address] [place] [phone] * (ABNORMAL) Comprehensive Metabolic Panel (11/18/2024 9:57 AM EDT) Sodium 142 135 - 145 mmol/L [facility] Potassium 4.0 3.3 - 5.1 mmol/L [facility] Chloride 109(H) 96 - 108 mmol/L [facility] Carbon Dioxide 23 22 - 29 mmol/L [facility] Anion Gap 14 12 - 20 [facility] Urea Nitrogen (BUN) 15 9 - 16 mg/dL [facility] Creatinine, Serum 1.00 0.5 - 1.4 mg/dL [facility] Estimated Glomerular Filt Rate 55 [facility] Comment:Chronic Kidney Disea se: Estimated GFR < 60 mL/min/[id number] Kidney Disease: Estimated GFR < 15 mL/min/1.73m2 Glucose 119(H) 60 - 115 mg/dL [facility] Calcium 9.9 8.4 - 10.2 mg/dL [facility] Bilirubin, Total 0.5 0.0 - 1.0 mg/dL [facility] Aspartate Amino Transferase 29 5 - 31 U/L [facility] Alanine Aminotransferase 21 0 - 31 U/L [facility] Total Protein 6.8 6.5 - 8.0 g/dL [facility] Albumin Level 4.3 3.5 - 5.0 g/dL [facility] Alkaline Phosphatase 119(H) 39 - 117 U/L [facility] Blood Venous blood specimen / Unknown 11/18/2024 9:57 AM EDT 11/18/2024 11:06 AM EDT Lanny Vasquez MD LAB BLOOD ORDERAB LES Final Result [facility] [address] [place] [phone] * CT Lung Screening Low dose (11/12/2024 9:12 PM EDT) Anatomical Region Laterality Modality Lung Computed Tomogra phy 11/12/2024 9:12 PM EDT Narrative 11/12/2024 9:13 PM EDT [place] [address] [address] Scan Report Signed Patient: Mora Manrique MR#: [id number] 7 : 1950 Acct:[id number] Age/Sex: 74 / F ADM Date: 11/11/24 Loc: HO.CT Attending Dr: Elzbieta Aguirre PA-C Ordering Physician: Elzbieta Aguirre PA-C Date of Service: 11/11/24 Procedure(s): CT lung screening Accession Number(s): [id number] cc: Elzbieta Aguirre PA-C; Lanny Ewing MD Report Number: [id number]: Total DLP = 58.00 mGy-cm CLINICAL HISTORY: Z87.891 - Personal history of nicotine dependence CT lung cancer screening (LDCT) Comparison: CT/SR - CT CHEST WO IV CON - 07/15/23 20:27 EST Technique: Axial CT images of the chest using low-dose technique. Referring provider counseled the patient on shared decision-making for LDCT screening. Additional counseling was provided on smoking cessation. Effective radiation dose total: DLP 47.3 mGycm, CTDIvol 1.5 mGy. Findings: Lung: Mild emphysema. No suspicious pulmonary nodules. Coronary artery calcifications: Mild Limited upper abdomen: Unremarkable Other: Skin thickening of the right breast Impression: LungRADS 1: Negative exam. Continue annual screening with low dose Chest CT in 12 months. ##L1## Category 1: Normal; continue annual screening Category 2: Benign appearance or behavior, continue annual screening Category 3: Probably benign, [address] recommended Category 4A: Suspicious, [address] recommended; may consider PET/CT Category 4B: Suspicious, Additional diagnostics and/or tissue sampling recommended Category 4X: Suspicious, Additional diagnostics and/or tissue sampling recommended Category 0: Recalls (incomplete screen due to Incomplete coverage, Noise, Respiratory motion, Expiration, Obscured by acute abnormality) This document has been electronically signed by: Falguni Calderon MD on 11/12/2024 21:12:26 Dictated By: Falguni Calderon MD Signed By: <Electronically signed by Falguni Calderon MD in OV> 11/12/242111 DD/ 11 TD/TT: 11/12/242111 Refrigeration Service Inspector: Procedure Note Donotuseinterpreter, Image - 11/12/[address] [place] [address] [address] Scan Report Signed Patient: Mora Manrique EMR#: [id number] 7 : 1950cct:[id number] Age/Sex: 74 / FADM Date: 11/11/24 Loc: HO.CT Attending Dr: Elzbieta Aguirre PA-C Ordering Physician: Elzbieta Aguirre PA-C Date of Service: 11/11/24 Procedure(s): CT lung screening Accession Number(s): [id number] cc: Elzbieta Aguirre PA-C; Lanny Ewing MD Report Number: [id number]: Total DLP = 58.00 mGy-cm CLINICAL HISTORY: Z87.891 - Personal history of nicotine dependence CT lung cancer screening (LDCT) Comparison: CT/SR - CT CHEST WO IV CON - 07/15/23 20:27 EST Technique: Axial CT images of the chest using low-dose technique. Referring provider counseled the patient on shared decision-making for LDCT screening. Additional counseling was provided on smoking cessation. Effective radiation dose total: DLP 47.3 mGycm, CTDIvol 1.5 mGy. Findings: Lung: Mild emphysema. No suspicious pulmonary nodules. Coronary artery calcifications: Mild Limited upper abdomen: Unremarkable Other: Skin thickening of the right breast Impression: LungRADS 1: Negative exam. Continue annual screening with low dose Chest CT in 12 months. ##L1## Category 1: Normal; continue annual screening Category 2: Benign appearance or behavior, continue annual screening Category 3: Probably benign, [address] recommended Category 4A: Suspicious, [address] recommended; may consider PET/CT Category 4B: Suspicious, Additional diagnostics and/or tissue sampling recommended Category 4X: Suspicious, Additional diagnostics and/or tissue sampling recommended Category 0: Recalls (incomplete screen due to Incomplete coverage, Noise, Respiratory motion, Expiration, Obscured by acute abnormality) This document has been electronically signed by: Falguni Calderon MD on 11/12/2024 21:12:26 Dictated By: Falguni Calderon MD Signed By: <Electronically signed by Falguni Calderon MD in OV> 11/12/242111 DD/ 11 TD/TT: 11/12/242111 Refrigeration Service Inspector: [facility] External Provider IMG CT PROCEDURES Edited Result - Final * BI Mammogram Diagnostic Tomosynthesis Bilateral (06/28/2024 11:45 AM EST) Anatomical Region Laterality Modality Breast Bilateral Mammography 06/28/2024 11:4 5 AM EST Narrative 06/28/2024 2:02 PM EST [facility] [address] [place] [address] Mammography Report Signed Patient: Mora Manrique MR#: [id number] 7 : 1950 Acct:[id number] Age/Sex: 73 / F ADM Date: 06/28/24 Loc: RODOLFO Attending Dr: Lanny Vasquez MD Ordering Physician: Neal Peters MD Results: 3.12M Probably Benign Finding - 12 month F/U Suggested Date of Service: 06/28/24 Follow Up: 12 month diagnos tic follow up Procedure(s): MM tomosynthesis diagnostic BI Accession Number(s): [id number] cc: Neal Peters MD; Lanny Ewing MD [...] 06/28/24 1359 DD/ 1145 TD/TT: 06/28/24 1205 Refrigeration Service Inspector: Procedure Note Donotuseinterpreter, Image - 06/28/2024 [facility] [address] [place] [address] Mammography Report Signed Patient: Mora Manrique EMR#: [id number] 7 : 1950cct:[id number] Age/Sex: 73 / FADM Date: 06/28/24 Loc: HO.MAMMO Attending Dr: Lanny Vasquez MD Ordering Physician: Neal Peters MDResults: 3.12M Probably Benign Finding - 12 month F/U Suggested Date of Service: 06/28/24Follow Up: 12 month diagnos tic follow up Procedure(s): MM tomosynthesis diagnostic BI Accession Number(s): [id number] cc: Neal Peters MD; Lanny Ewing MD [...] by: Yuliya Khalil DO 06/28/2024 01:59 PM [facility] Dictated By: Yuliya Khalil DO Signed By: <Electronically signed by Yuliya Khalil DO in OV> 06/28/24 1359 DD/ 1145 TD/TT: 06/28/24 1205 Refrigeration Service Inspector: [facility] External Provider IMG BI PROCEDURES Final Result * Hepatitis C Antibody with Reflex to HCV, RNA, Quantitative, Real-Time PCR (10/13/2023 10:30 AM EDT) Hepatitis C Antibody Nonreactive Nonreactive [facility] Comment:Antibodies to HCV no t detected; does not exclude early acuteHCV infection. Blood Venous blood specimen / Unknown 10/13/2023 10:30 AM EDT 10/13/2023 11:19 AM EDT Lanny Vasquez MD LAB BLOOD ORDERAB LES Final Result [facility] [address] [place] [phone] * Hm Colonoscopy (09/17/2018 1:13 PM EDT) Historical Provider HEALTH MAINTENANCE Final Result from Last 3 Months or Most Recently Relevant to Health Maintenance Insurance [address] [place], [place] [phone] [facility] Care Teams Mail Handler Equipment Operator Relationship Specialty Start Date End Date Lanny Ewing MD [address] [place] [address] PCP - General Internal Medicine 03/03/23
--- OUTSIDE RECORDS SUMMARY | 2025-01-19 14:39 | XMS_ITS | Clinical Summary ---
Author Organization [address] [facility] Address [address] [place] [address] Phone Care Team Providers Care Independent Video Producer Name Role Phone Lanny Ewing MD Primary [...] Chronic gouty arthritis 02/22/2024 COPD (chronic obstructive pu lmonary disease) (CMS/HCC V24, CMS/HCC V28) 02/22/2024 Dermatitis 02/22/2024 Essential hypertension 02/22/2024 GERD (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 reflux disease) Hyperlipidemia 02/22/2024 Hypertensive retinopathy 02/22/2024 Invasive ductal carcinoma of right breast ([facility] V24, [facility] V28) 02/22/2024 Microscopic hematuria 02/22/2024 Moderate persistent asthma with (acute) exacerba tion 02/22/2024 Obesity 02/22/2024 Osteoarthritis of elbow 02/22/2024 Osteopenia 02/22/2024 Proteinuria 02/22/2024 Recurrent major depressive episodes, mild ([facility] V24) 02/22/2024 Seropositive rheumatoid arth ritis ([facility] V24, [facility] V28) 02/22/2024 Stage 3 chronic kidney disease ([facility] V24, [facility] V28) 02/22/2024 Type 2 diabetes mellitus wit h stage 3 chronic kidney disease, without long-term current use of insulin ([facility] V24, [facility] V28) 02/22/2024 Social History Tobacco Use Types Packs/Day [...] Annual BMP Blood Test 03/08/2024 Depression Screening 05/25/2024 Diabetes: Blood Sugar Control Test (HGBA1C) 10/02/2024 04/04/2024 DTaP,Tdap,and Td Vaccines (3 - Td or Tdap) 10/25/2024 10/25/2014, 01/11/2003 Influenza Vaccine (#1) 2025 , 03/30/2023, 05/23/2021, Additional history exists Cholesterol Screening (Lipid Panel) 04/04/2029 04/04/2024 Hepatitis [...] age to complete this topic Insurance MEDICARE MEDICAID - [place] Care Teams Independent Video Producer Relationship Specialty Start Date End Date Lanny Ewing MD [address] [phone] PCP - General 10/23/23
--- OUTSIDE RECORDS SUMMARY | 2025-01-19 14:39 | XMS_ITS | Encounter Summary ---
Author Organization [employer] Address [address] [place] [address] [address] [place] [address] Care Team Providers Care Resume Specialist Name Role Phone Lanny Ewnig MD Primary Care Pro vider Reason for Visit * Reason Comments Med Refill Encounter Details Date Type Department Care Team ([facility] st Contact Info) Description 12/30/2024 Refill [facility] [address] [place] [address] Lanny Ewing MD [address] [place] [address] Social History Tobacco Use Types Packs/Day Years [...] Description 01/26/2025 2:15 PM EDT Office Visit [facility] [address] [place] [address] Lanny Ewing MD [address] [place] [phone] documented as of this encounter Goals Goal [...] documented as of this encounter Care Teams Resume Specialist Relationship Specialty Start Date End Date Lanny Ewing MD [address] [place] [phone] PCP - General Internal Medicine 03/03/23 documented as of this encounter
--- OUTSIDE RECORDS SUMMARY | 2025-01-19 14:39 | XMS_ITS | Encounter Summary ---
Author Organization [facility] Address [address] [place] [address] Phone Care Team Providers Care Gasoline Finisher Name Role Phone Lanny Roach Primary Care Provid er Encounter Details Date Type Department Care Team (Late Contact Info) Description 09/03/2023 Documentation Only [facility] [address] [place] [address] Mae Olsen [address] [place] [address] Social History Tobacco Use Types [...] Visit [facility] [address] [place] [address] Tiara Barrientos MD [address] [place] [address] [place] [address] documented as of this encounter Visit Diagnoses Not on filedocumented in this encounter Care Teams Gasoline Finisher Relationship Specialty Start Date End Date Lanny Roach [address] [place] [phone] PCP - General 03/10/24 documented as of this encounter
--- OUTSIDE RECORDS SUMMARY | 2025-01-19 14:39 | XMS_ITS | Encounter Summary ---
Author Organization [facility] Address [address] [place] [address] Phone Care Team Providers Care Oracle Endeca Consultant Name Role Phone Lanny Roach Primary Care Provid er Encounter Details Date Type Department Care Team (Late Contact Info) Description 03/29/2024 Documentation Only [facility] [address] [place] [address] Mae Olsen [address] [place] [address] Social History Tobacco Use Types [...] [facility] [address] [place] [address] Tiara Barrientos MD [address] [place] [address] [place] [address] documented as of this encounter Visit Diagnoses Not on filedocumented in this encounter Care Teams Oracle Endeca Consultant Relationship Specialty Start Date End Date Lanny Roach [address] [place] [phone] PCP - General 03/10/24 documented as of this encounter
--- OUTSIDE RECORDS SUMMARY | 2025-01-19 14:39 | XMS_ITS | Encounter Summary ---
Author Organization [facility] Address PO [facility] [address] [place] [address] Phone Care Team Providers Care Class A Regional Truck Driver Name Role Phone Lanny Roach Primary Care Provid er Encounter Details Date Type Department Care Team (Late st Contact Info) Description 12/31/2021 Documentation Only [facility] [address] [place] [address] Gabino Donnelly MD [address] [place] [address] [place] [address] Social History Tobacco Use Types [...] Visit [facility] [address] [place] [address] Tiara Barrientos MD [address] [facility] [address] documented as of this encounter Visit Diagnoses Not on filedocumented in this encounter Care Teams Class A Regional Truck Driver Relationship Specialty Start Date End Date Lanny Roach [address] [place] [address] [phone] PCP - General 03/10/24 documented as of this encounter
--- OUTSIDE RECORDS SUMMARY | 2025-01-19 14:39 | XMS_ITS | Encounter Summary ---
Author Organization [facility] Address [address] [place] [address] Phone Care Team Providers Care Fruit Canner Name Role Phone Lanny Roach Primary Care Provid er Encounter Details Date Type Department Care Team (Late Contact Info) Description 03/29/2024 Documentation Only [facility] [address] [place] [address] Mae Olsen [address] [place] [address] Social History Tobacco Use Types [...] Visit [facility] [address] [place] [address] Tiara Barrientos MD [address] [place] [address] [place] [address] documented as of this encounter Visit Diagnoses Not on filedocumented in this encounter Care Teams Fruit Canner Relationship Specialty Start Date End Date Lanny Roach [address] [place] [phone] PCP - General 03/10/24 documented as of this encounter
--- OUTSIDE RECORDS SUMMARY | 2025-01-19 14:39 | XMS_ITS | Encounter Summary ---
Author Organization [facility] Address [address] [place] [address] Phone Care Team Providers Care Leaf Sorter Name Role Phone Lanny Roach Primary Care Provid er Encounter Details Date Type Department Care Team (Late Contact Info) Description 01/05/2025 Documentation Only [facility] [address] [place] [address] Mae Olsen [address] [place] [address] Social History Tobacco Use Types [...] Visit [facility] [address] [place] [address] Tiara Barrientos MD [address] [place] [address] [place] [address] documented as of this encounter Visit Diagnoses Not on filedocumented in this encounter Care Teams Leaf Sorter Relationship Specialty Start Date End Date Lanny Roach [address] [place] [phone] PCP - General 03/10/24 documented as of this encounter
--- OUTSIDE RECORDS SUMMARY | 2025-01-19 14:39 | XMS_ITS | Encounter Summary ---
Author Organization [facility] Address [address] [place] [address] Phone Care Team Providers Care Real Estate Associate Name Role Phone Lanny Roach Primary Care Provid er Encounter Details Date Type Department Care Team (Late Contact Info) Description 03/22/2024 Documentation Only [facility] [address] [place] [address] Mae Olsen [address] [place] [address] Social History Tobacco Use Types [...] Department Care Team (Late Contact Info) Description 07/06/2025 2:00 PM EST Office Visit [facility] [address] [place] [address] Tiara Barrientos MD [address] [place] [address] [place] [address] documented as of this encounter Visit Diagnoses Not on filedocumented in this encounter Care Teams Real Estate Associate Relationship Specialty Start Date End Date Lanny Roach [address] [place] [phone] PCP - General 03/10/24 documented as of this encounter
--- OUTSIDE RECORDS SUMMARY | 2025-01-19 14:39 | XMS_ITS | Clinical Summary ---
Author Organization [facility] Address [address] [place] [address] [place] [address] Phone Care Team Providers Care Billiard Table Repairer Name Role Phone Lanny Roach Primary Care [...] Encounters Date Type Department Care Team Description 01/05/2025 Documentation Only [facility] [address] [place] [address] Mae Olsen 11/17/2024 Documentation Only [facility] [address] [place] [address] Mae Olsen 11/17/2024 Documentation Only [facility] [address] [place] [address] Mae Olsen 11/17/2024 Documentation Only [facility] [address] [place] [address] Mae Olsen from Last 3 Months Immunizations Immunization Administration Dates Next Due Hepatitis B 01/18/2018,08/11/2017,07/14/2017 [...] Visit [facility], [address] [place] [address] Tiara Barrientos MD [address] [place] [address] Health Maintenance Due Date Last Done Comments Breast Cancer Screening 1950 Colorectal Cancer Screening: Annual FOBT 2001 Colorectal Cancer Screening: Colonoscopy 2001 Colorectal Cancer Screening: Sigmoidoscopy 2001 Diabetes: Ophthalmology Exam 12/02/2019 Diabetes: Pedal Pulse Checked 12/02/2019 Diabetes: Sensory Foot Exam 12/02/2019 Diabetes: Visual Foot Exam 12/02/2019 Influenza Vaccine (#1) 2025 4, 03/30/2023, 05/23/2021, Additional history exists Diabetes: Hemoglobin A1C 02/18/2025 025, 09/16/2024, 04/04/2024, Additional history exists Hepatitis B Vaccine Aged Out 01/18/2018, 08/11/2017, 07/14/2017 No longer eligible based on patient's age to complete this topic Pneumococcal Vaccine: 50+ Years Completed 11/06/2022, 07/18/2021, 02/28/2014, Additional history exists Pneumococcal Vaccine: Peds (0 to 5 Years) and At-Risk Patients (6 to 49 Years) Discontinued 11/06/2022, 07/18/2021, 02/28/2014, Additional history exists Insurance Medicare Medicaid [place] Care Teams Billiard Table Repairer Relationship Specialty Start Date End Date Lanny Roach [address] [place] [phone] PCP - General 03/10/24
[2025-01-19 15:48] LABS: Microalbum/Creatinine Ratio Ur 312.6 ug/mg cr (<30)
== END 2025-01-19 13:51 | disposition home or self-care (01) ==
LOC: HO.XRAY 13:50
PROVIDERS: Absent Provider Internal Medicine Nephrology; PCP Student in an Organized Health Care Education/Training Program; Visit Provider Student in an Organized Health Care Education/Training Program
DX: M54.50 Low back pain, unspecified (principal); N18.32 Chronic kidney disease, stage 3b
CPT/HCPCS: 72100; 82043; 82570

== ENCOUNTER → 2025-01-19 14:07 | Outpatient (BNV) | payer MEDICARE, SELFPAY | PROVIDERS: Absent Provider Internal Medicine Nephrology; PCP Student in an Organized Health Care Education/Training Program; Visit Provider Radiology Diagnostic Radiology | DX: M54.50 Low back pain, unspecified (principal) | CPT/HCPCS: 72100 ==

== ENCOUNTER 2025-01-20 14:22 | Outpatient (REF) | payer MEDICARE, SELFPAY ==
--- OUTSIDE RECORDS SUMMARY | 2025-01-20 14:25 | XMS_ITS | Encounter Summary ---
Author Organization [facility] Address [address] [place] [address] Phone Care Team Providers Care Open Soaper Tender Name Role Phone Lanny Roach Primary Care Provid er Encounter Details Date Type Department Care Team (Late Contact Info) Description 09/03/2023 Documentation Only [facility] [address] [place] [address] Mae Olsen [address] [place] [address] Social History Tobacco Use Types [...] [facility] [address] [place] [address] Tiara Barrientos MD [address] [place] [address] [place] [address] documented as of this encounter Visit Diagnoses Not on filedocumented in this encounter Care Teams Open Soaper Tender Relationship Specialty Start Date End Date Lanny Roach [address] [place] [phone] PCP - General 03/10/24 documented as of this encounter
--- OUTSIDE RECORDS SUMMARY | 2025-01-20 14:25 | XMS_ITS | Encounter Summary ---
Author Organization [facility] Address [address] [place] [address] Phone Care Team Providers Care Pen Ruler Operator Name Role Phone Lanny Roach Primary Care Provid er Encounter Details Date Type Department Care Team (Late Contact Info) Description 09/03/2023 Documentation Only [facility] [address] [place] [address] Mae Olsen [address] [place] [address] Social History Tobacco Use Types [...] Visit [facility] [address] [place] [address] Tiara Barrientos MD [address] [place] [address] [place] [address] documented as of this encounter Visit Diagnoses Not on filedocumented in this encounter Care Teams Pen Ruler Operator Relationship Specialty Start Date End Date Lanny Roach [address] [place] [phone] PCP - General 03/10/24 documented as of this encounter
--- OUTSIDE RECORDS SUMMARY | 2025-01-20 14:25 | XMS_ITS | Encounter Summary ---
Author Organization [facility] Address [address] [place] [address] Phone Care Team Providers Care Web Press Operator Assistant Name Role Phone Lanny Roach Primary Care Provid er Encounter Details Date Type Department Care Team (Late Contact Info) Description 09/03/2023 Documentation Only [facility] [address] [place] [address] Mae Olsen [address] [place] [address] Social History Tobacco Use Types [...] [facility] [address] [place] [address] Tiara Barrientos MD [address] [place] [address] [place] [address] documented as of this encounter Visit Diagnoses Not on filedocumented in this encounter Care Teams Web Press Operator Assistant Relationship Specialty Start Date End Date Lanny Roach [address] [place] [phone] PCP - General 03/10/24 documented as of this encounter
--- OUTSIDE RECORDS SUMMARY | 2025-01-20 14:25 | XMS_ITS | Encounter Summary ---
Author Organization [facility] Address [address] [place] [address] Phone Care Team Providers Care Miniature Model Maker Name Role Phone Lanny Roach Primary Care Provid er Encounter Details Date Type Department Care Team (Late Contact Info) Description 09/03/2023 Documentation Only [facility] [address] [place] [address] Mae Olsen [address] [place] [address] Social History Tobacco Use Types [...] [facility] [address] [place] [address] Tiara Barrientos MD [address] [place] [address] [place] [address] documented as of this encounter Visit Diagnoses Not on filedocumented in this encounter Care Teams Miniature Model Maker Relationship Specialty Start Date End Date Lanny Roach [address] [place] [address] PCP - General 03/10/24 documented as of this encounter
--- OUTSIDE RECORDS SUMMARY | 2025-01-20 14:26 | XMS_ITS | Encounter Summary ---
Author Organization [facility] Address [address] [place] [address] Phone Care Team Providers Care Design Verification Engineer Name Role Phone Lanny Roach Primary Care Provid er Encounter Details Date Type Department Care Team (Late Contact Info) Description 03/29/2024 Documentation Only [facility] [address] [place] [address] Mae Olsen [address] [place] [address] Social History Tobacco Use Types [...] Visit [facility] [address] [place] [place] [address] Tiara Barrientos MD [address] [place] [address] [place] [address] documented as of this encounter Visit Diagnoses Not on filedocumented in this encounter Care Teams Design Verification Engineer Relationship Specialty Start Date End Date Lanny Roach [address] [place] [phone] PCP - General 03/10/24 documented as of this encounter
--- OUTSIDE RECORDS SUMMARY | 2025-01-20 14:26 | XMS_ITS | Encounter Summary ---
Author Organization [facility] Address [address] [place] [address] Phone Care Team Providers Care Senior Naval Parachutist Name Role Phone Lanny Roach Primary Care Provid er Encounter Details Date Type Department Care Team (Late Contact Info) Description 09/03/2023 Documentation Only [facility] [address] [place] [address] Mae Olsen [address] [place] [address] Social History Tobacco Use Types [...] [facility] [address] [place] [address] Tiara Barrientos MD [address] [place] [address] [place] [address] documented as of this encounter Visit Diagnoses Not on filedocumented in this encounter Care Teams Senior Naval Parachutist Relationship Specialty Start Date End Date Lanny Roach [address] [place] [phone] PCP - General 03/10/24 documented as of this encounter
--- OUTSIDE RECORDS SUMMARY | 2025-01-20 14:26 | XMS_ITS | Encounter Summary ---
Author Organization [facility] Address [address] [place] [address] Phone Care Team Providers Care Home Health Occupational Therapist Name Role Phone Lanny Roach Primary Care Provid er Encounter Details Date Type Department Care Team (Late Contact Info) Description 09/03/2023 Documentation Only [facility] [address] [place] [address] Mae Olsen [address] [place] [address] Social History Tobacco Use Types [...] [facility] [address] [place] [address] Tiara Barrienots MD [address] [place] [address] [place] [address] documented as of this encounter Visit Diagnoses Not on filedocumented in this encounter Care Teams Home Health Occupational Therapist Relationship Specialty Start Date End Date Lanny Roach [address] [place] [phone] PCP - General 03/10/24 documented as of this encounter
--- OUTSIDE RECORDS SUMMARY | 2025-01-20 14:26 | XMS_ITS | Encounter Summary ---
Author Organization [employer] Address [address] [place] [address] 7t [place] [address] Care Team Providers Care Settlement Worker Name Role Phone Lanny Ewing MD Primary Care Pro vider Reason for Visit * Reason Comments Med Refill Encounter Details Date Type Department Care Team ([facility] st Contact Info) Description 09/12/2024 Refill [facility] MED & PEDS [address] [place], [place] [phone] Lanny Ewing MD [address] [place] [address] Social History Tobacco Use Types Packs/Day Years [...] Description 01/26/2025 2:15 PM EDT Office Visit [facility] MEDICINE [address] [place] [phone] Lanny Ewing MD [address] [place] [phone] documented as of this encounter Goals Goal [...] documented as of this encounter Care Teams Settlement Worker Relationship Specialty Start Date End Date Lanny Ewing MD [address] [place] [phone] PCP - General Internal Medicine 03/03/23 documented as of this encounter
--- OUTSIDE RECORDS SUMMARY | 2025-01-20 14:26 | XMS_ITS | Encounter Summary ---
Author Organization [employer] Address [address] [place] [address] Care Team Providers Care Parts Analyst Name Role Phone Adenike Souza TRACTOR TRAILER MOVING VAN DRIVER Primary Care Provider Lanny Whitaker MD Primary Care Pro vider Reason for Visit * Reason Comments Med Refill Encounter Details Date Type Department Care Team (Late st Contact Info) Description 12/06/2022 Refill [facility] MEDICINE [address] [place], [place] [phone] Vandana Elmore DO [address] [place], [place] [phone] Social History Tobacco Use Types Packs/Day Years [...] 2:15 PM EDT Office Visit [facility] MEDICINE [address] [place], [place] [phone] Lanny Ewing MD [address] [place] [address] documented as of this encounter Visit Diagnoses Not on filedocumented in this encounter Care Teams Parts Analyst Relationship Specialty Start Date End Date Adenike Souza FNP PCP - General Family Medicine 01/15/22 03/02/23 Lanny Ewing MD [address] [place] [address] PCP - General Internal Medicine 03/03/23 documented as of this encounter
--- OUTSIDE RECORDS SUMMARY | 2025-01-20 14:26 | XMS_ITS | Encounter Summary ---
Author Organization [facility] Address [address] [place] [address] Phone Care Team Providers Care Special Events Assistant Name Role Phone Lanny Roach Primary Care Provid er Encounter Details Date Type Department Care Team (Late Contact Info) Description 09/03/2023 Documentation Only [facility] [address] [place] [address] Mae Olsen [address] [place] [address] Social History Tobacco Use Types [...] Visit [facility] [address] [place] [address] Tiara Barrientos MD [address] [place] [address] [place] [address] documented as of this encounter Visit Diagnoses Not on filedocumented in this encounter Care Teams Special Events Assistant Relationship Specialty Start Date End Date Lanny Roach [address] [place] [phone] PCP - General 03/10/24 documented as of this encounter
--- OUTSIDE RECORDS SUMMARY | 2025-01-20 14:26 | XMS_ITS | Encounter Summary ---
Author Organization [facility] Address [address] [place] [address] Phone Care Team Providers Care Skilled Nursing Case Manager Name Role Phone Lanny Roach Primary Care Provid er Encounter Details Date Type Department Care Team (Late Contact Info) Description 09/03/2023 Documentation Only [facility] [address] [place] [address] Mae Olsen [address] [place] [address] Social History Tobacco Use Types [...] [facility] [address] [place] [address] Tiara Barrientos MD [address] [place] [address] [place] [address] documented as of this encounter Visit Diagnoses Not on filedocumented in this encounter Care Teams Skilled Nursing Case Manager Relationship Specialty Start Date End Date Lanny Roach [address] [place] [phone] PCP - General 03/10/24 documented as of this encounter
--- OUTSIDE RECORDS SUMMARY | 2025-01-20 14:26 | XMS_ITS | Encounter Summary ---
Author Organization [employer] Address [address] [place] [address] [place] [address] Care Team Providers Care Facility Assistant Name Role Phone Lanny Ewing MD Primary Care Pro vider Reason for Visit * Reason Onset Date Comments Hospital Follow-up 07/20/2023 Encounter Details Date Type Department Care Team ([facility] st Contact Info) Description 07/20/2023 Telephone [facility] MEDICINE [address] [place] [address] Lanny Ewing MD [address] [place] [address] Hospital Follow-up Social History Tobacco Use Types [...] from pt requesting a HDF appt. Hospital: [facility] Date of admission: 06/14/2023 Discharge date: 06/17/2023 Diagnosed: Trouble Breathing/Asthma documented in this encounter Plan of Treatment Upcoming Encounters Date Type Department Care Team (Late st Contact Info) Description 01/26/2025 2:15 PM EDT Office Visit [facility] MEDICINE [address] [place] [phone] Lanny Ewing MD [address] [place] [address] documented as of this encounter Visit Diagnoses Not on filedocumented in this encounter Care Teams Facility Assistant Relationship Specialty Start Date End Date Lanny Ewing MD [address] [place] [phone] PCP - General Internal Medicine 03/03/23 documented as of this encounter
--- OUTSIDE RECORDS SUMMARY | 2025-01-20 14:26 | XMS_ITS | Encounter Summary ---
Author Organization [employer] Address [address] [place] [address] 7t [place] [address] Care Team Providers Care Benefits Coordinator Name Role Phone Lanny Ewing MD Primary Care Pro vider Reason for Visit * Reason Comments Med Refill Encounter Details Date Type Department Care Team ([facility] st Contact Info) Description 12/30/2024 Refill [facility] MEDICINE [address] [place] [address] Lanny Ewing MD [address] [place] [address] Social History Tobacco Use Types Packs/Day Years [...] 01/26/2025 2:15 PM EDT Office Visit [facility] MEDICINE [address] [place] [phone] Lanny Ewing MD [address] [place] [phone] documented as of this encounter Goals Goal [...] documented as of this encounter Care Teams Benefits Coordinator Relationship Specialty Start Date End Date Lanny Ewing MD [address] [place] [phone] PCP - General Internal Medicine 03/03/23 documented as of this encounter
--- OUTSIDE RECORDS SUMMARY | 2025-01-20 14:26 | XMS_ITS | Encounter Summary ---
Author Organization [facility] Address [address] [place] [address] Phone Care Team Providers Care Chipper Operator Name Role Phone Lanny Roach Primary Care Provid er Encounter Details Date Type Department Care Team (Late Contact Info) Description 09/03/2023 Documentation Only [facility] [address] [place] [address] Mae Olsen [address] [place] [address] Social History Tobacco Use Types [...] Visit [facility] [address] [place] [address] Tiara Barrientos MD [address] [place] [address] [place] [address] documented as of this encounter Visit Diagnoses Not on filedocumented in this encounter Care Teams Chipper Operator Relationship Specialty Start Date End Date Lanny Roach [address] [place] [phone] PCP - General 03/10/24 documented as of this encounter
--- OUTSIDE RECORDS SUMMARY | 2025-01-20 14:26 | XMS_ITS | Encounter Summary ---
Author Organization [employer] Address [address] [place] [address] [address] [place] [address] Care Team Providers Care Service Station Console Operator Name Role Phone Lanny Ewing MD Primary Care Pro vider Reason for Visit * Reason Comments Med Refill Encounter Details Date Type Department Care Team ([facility] st Contact Info) Description 12/23/2023 Refill [facility] MEDICINE [address] [place] [address] Lanny Ewing MD [address] [place] [address] Social History Tobacco Use Types Packs/Day Years [...] 2:15 PM EDT Office Visit [facility] MEDICINE [address] [place] [address] Lanny Ewing MD [address] [place] [address] [phone] documented as of this encounter Goals Goal [...] documented as of this encounter Care Teams Service Station Console Operator Relationship Specialty Start Date End Date Lanny Ewing MD [address] [place] [phone] PCP - General Internal Medicine 03/03/23 documented as of this encounter
--- OUTSIDE RECORDS SUMMARY | 2025-01-20 14:26 | XMS_ITS | Encounter Summary ---
Author Organization [employer] Address [address] [place] [address] 7t [place] [address] Care Team Providers Care Sales And Service Associate Name Role Phone Lanny Ewing MD Primary Care Pro vider Encounter Details Date Type Department Care Team (Late st Contact Info) Description 10/26/2023 Orders Only [facility] MEDICINE [address] [place] [address] Provider, MD Sherly Social History Tobacco Use [...] Description 01/26/2025 2:15 PM EDT Office Visit [facility] MEDICINE [address] [place] [address] Lanny Ewing MD [address] [place] [phone] documented as of this encounter Goals Goal [...] documented as of this encounter Care Teams Sales And Service Associate Relationship Specialty Start Date End Date Lanny Ewing MD [address] [place] [address] [phone] PCP - General Internal Medicine 03/03/23 documented as of this encounter
--- OUTSIDE RECORDS SUMMARY | 2025-01-20 14:26 | XMS_ITS | Encounter Summary ---
Author Organization [facility] Address PO [facility] [address] [place] [address] Phone Care Team Providers Care Coagulant Dipper Name Role Phone Lanny Roach Primary Care Provid er Encounter Details Date Type Department Care Team (Late st Contact Info) Description 10/07/2022 Documentation Only [facility] [address] [place] [address] Evelia [place], [place] [address] [place] [address] Social History Tobacco Use Types [...] [facility] [address] [place] [address] Tiara Barrientos MD [address] [place] [address] [place] [address] documented as of this encounter Visit Diagnoses Not on filedocumented in this encounter Care Teams Coagulant Dipper Relationship Specialty Start Date End Date Lanny Roach [address] [place] [address] [phone] PCP - General 03/10/24 documented as of this encounter
--- OUTSIDE RECORDS SUMMARY | 2025-01-20 14:26 | XMS_ITS | Encounter Summary ---
Author Organization [facility] Address [address] [place] [address] Phone Care Team Providers Care Strip Cutting Machine Operator Name Role Phone Lanny Roach Primary Care Provid er Encounter Details Date Type Department Care Team (Late Contact Info) Description 09/03/2023 Documentation Only [facility] [address] [place] [address] Mae Olsen [address] [place] [address] Social History Tobacco Use Types [...] [facility] [address] [place] [address] Tiara Barrientos MD [address] [place] [address] [place] [address] documented as of this encounter Visit Diagnoses Not on filedocumented in this encounter Care Teams Strip Cutting Machine Operator Relationship Specialty Start Date End Date Lanny Roach [address] [place] [phone] PCP - General 03/10/24 documented as of this encounter
--- OUTSIDE RECORDS SUMMARY | 2025-01-20 14:26 | XMS_ITS | Clinical Summary ---
Author Organization [employer] Address [address] [place] [address] [address] [place] [address] Care Team Providers Care Heel Blacker Name Role Phone Lanny Ewing MD Primary [...] disease, without long-term current use of insulin ([facility]) USE TO TEST BLOOD SUGAR TWICE A [...] reduction recently since her Potassium was elevated. Aluminum Boats Assembler informed her that her potassium level was [...] Encounters Date Type Department Care Team Description 01/19/2025 Results Follow-Up [facility] MEDICINE [address] [place] [address] Lanny Ewing MD XR Lumbar Spine 2-3 Views, Albumin, Random Urine W/Creatinine 01/13/2025 Refill [facility] [address] [place] [address] Lanny Ewing MD Seasonal allergic rhinitis, unspecified trigger 01/13/2025 Refill [facility] [address] [place] [address] Yuki Wang MD Seasonal allergic rhinitis, unspecified trigger 12/30/2024 Refill [facility] MEDICINE [address] [place] [address] Lanny Ewing MD 11/24/2024 Telephone [facility] MEDICINE [address] [place] [address] Lanny Ewing MD Prior Authorization 11/24/2024 Telephone [facility] MEDICINE [address] [place] [address] Lanny Ewing MD 11/23/2024 2:00 PM EDT Office Visit [facility] MEDICINE [address] [place] [address] Lanny Ewing MD Low back pain, unspecified back pain laterality, unspecified chronicity, unspecified whether sciatica present (Primary Dx); Essential hypertension; Abnormal thyroid function test; Abnormal EKG; Obesity (BMI 30-39.9); Type 2 diabetes mellitus with stage 3b chronic kidney disease, without long-term current use of insulin ([facility]); Health care maintenance; Recurrent major depressive episodes, mild ([facility]); Dermatitis; Insomnia, unspecified type; Abnormal TSH; Poor memory 11/23/2024 Telephone [facility] MEDICINE [address] [place] [address] Lanny Ewing MD Med Refill 11/23/2024 Travel 11/22/2024 Telephone [facility] [address] [place] [address] Lanny Ewing MD chart prep 11/18/2024 Results Follow-Up [facility] [address] [place] [address] Lanny Ewing MD Albumin, Random Urine W/Creatinine, CBC, Comprehensive Metabolic Panel, Additional followed-up results: 5 11/18/2024 Orders Only [facility] [address] [place] [address] Lanny Ewing MD 11/14/2024 Results Follow-Up [address] Lung Screening Low dose 11/11/2024 Orders Only [facility] External Provider, [facility] from Last 3 Months Immunizations Immunization [...] 2:15 PM EDT Office Visit [facility] MEDICINE [address] [place] [phone] Lanny Ewing MD [address] [place] [address] Health Maintenance Due Date Last Done Comments CT Colonography 1952 FIT DNA/Cologuard 1950 FIT 1950 FOBT 1950 Sigmoidoscopy 1950 Eye Exam 1962 Diabetes: Foot Exam 12/11/2023 12/10/2022, 3 Influenza Vaccine (#1) 2025 4, 03/30/2023, 05/23/2021, Additional history exists COVID-19 Vaccine ( season) 2025 09/19/2024, 09/11/2023, 11/30/2021, Additional history exists Diabetes: Hemoglobin A1C 05/20/2025 025, 09/16/2024, 04/04/2024, Additional history exists Diagnostic [...] 140/90 Blood Pressure 120/78(2024 2:00 PM EDT) Jessica Peter Hemoglobin A1c < 7 Result Component 6.3( 9:57 AM EDT) No Jessica Evans Procedures Procedure Name Priority Date/Time Associated Diagnosis Comments XR LUMBAR SPINE 2-3 VIEWS Routine 01/19/2025 2:10 PM EDT Low back pain, unspecified back pain laterality, unspecified chronicity, unspecified whether sciatica present ALBUMIN, RANDOM URINE W/CREATININE Routine 01/19/2025 1:57 PM EDT Essential hypertension ECG 12-LEAD Routine 11/23/2024 2:56 PM EDT [...] PM EDT Narrative 01/19/2025 2:33 PM EDT [place] [address] XRay Report Signed Patient: Mora Manrique MR#: [id number] 7 : 1950 Acct:[id number] Age/Sex: 74 / F ADM Date: 01/19/25 Loc: HO.MIKEY Attending Dr: Lanny Vasquez MD Ordering Physician: Lanny Ewing MD Date of Service: 01/19/25 Procedure(s): XR lumbar spine 2-3V Accession Number(s): [id number] cc: Lanny Ewing MD EXAMINATION: XR LUMBOSACRAL [...] Cuco Sal MD 01/19/2025 02:30 PM EDT RP Dictated By: Cuco Sal MD Signed By: <Electronically signed by Cuco Sal MD in OV> 01/19/25 1430 DD/ 1410 TD/TT: 01/19/25 1419 Veneer Stock Layer: Procedure Note Donotuseinterpreter, Image - 01/19/[address] [address] XRay Report Signed Patient: Mroa Manrique EMR#: [id number] 7 : 1950cct:[id number] Age/Sex: 74 / FADM Date: 01/19/25 Loc: HO.XRAY Attending Dr: Lanny Vasquez MD Ordering Physician: Lanny Ewing MD Date of Service: 01/19/25 Procedure(s): XR lumbar spine 2-3V Accession Number(s): [id number] cc: Lanny Ewing MD EXAMINATION: XR LUMBOSACRAL [...] Cuco Sal MD 01/19/2025 02:30 PM EDT RP Dictated By: Cuco Sal MD Signed By: <Electronically signed by Cuco Sal MD in OV> 01/19/25 1430 DD/ 1410 TD/TT: 01/19/25 1419 Veneer Stock Layer: us Lanny Vasquez MD IMG XR PROCEDURES Final Result * (ABNORMAL) Albumin, Random Urine W/Creatinine (01/19/2025 1:57 PM EDT) Only the most recent of2 resultswithin the time period is included. Creatinine, Urine 63.00 mg/dL [facility] Microalbumin Urine 197.0 mg/L H [facility] Microalbum Creatinine Ratio Ur 312.6(H) <30 ug/mg cr [facility] Comment:Albumin/Creatinine R atio Reference Ranges: Normal: < 30 ug/mg creatinine Microalbuminuria: 30 - 300 ug/mg creatinineClinical Albuminuria: > 300 ug/mg creatinine Urine (Urine, Random) 01/19/2025 1:57 PM EDT 01/19/2025 2:40 PM EDT Lanny Vasquez MD LAB URINE ORDERAB LES Final Result [facility] [address] [place] [phone] * ECG 12 lead (11/23/2024 2:56 PM EDT) Narrative Lanny Ewing MD - 11/23/2024 2:56 PM EDT EKG today HR 73, NSR, Qtc 420, sinus arrhythmia,horizontal axis, low QRS voltage ,aVL ,lead III ,aVF TWI Lanny Vasquez MD ECG ORDERABLES F inal Result * Vitamin D, 25-Hydroxy, Total, Immunoassay (11/18/2024 9:57 AM EDT) Vitamin D 25-OH Total 62.9 >30 ng/mL [facility] Comment: Health Based Reference Values*< 20 ng/mL Ridoznujj55-67 ng/mL Insufficient> 30 ng/mL Sufficient*Wojciech ESCOBAR. N [...] MD LAB BLOOD ORDERAB LES Final Result [facility] [address] [place] [phone] * Vitamin B12 (Cobalamin) and Folate Panel, Serum (11/18/2024 9:57 AM EDT) Vitamin B12 395 200 - 900 pg/mL [facility] Comment:NORMAL 200-900 PG/ML INDETERMINATE 160-199 PG/ML DEFICIENT < 160 PG/ML Folate 12.0 > or = 4.0 ng/mL [facility] Comment:Reference Values:> o r = 4.0 ng/mL< 4.0 ng/mL suggests folate deficiency Methotrexate, aminopterin and folinic acid(leucovorin) are chemotherapeutic agents whose molecularstructures are similar to folate; therefore, the Architectfolate assay cannot be used for patients using these drugs. Blood 11/18/2024 9:57 AM EDT 11/18/2024 11:06 AM EDT Lanny Vasquez MD LAB BLOOD ORDERAB LES Final Result [facility] [address] [place] [address] [phone] * (ABNORMAL) TSH with Reflex to Free T4 (11/18/2024 9:57 AM EDT) TSH reflex Free T4 4.28(H) 0.32 - 4.0 uIU/mL [facility] Blood 11/18/2024 9:57 AM EDT 11/18/2024 11:06 AM EDT Lanny Vasquez MD LAB BLOOD ORDERAB LES Final Result Performing Organization Address [facility] Co de Phone Number [facility] [address] [place] [phone] * CBC (11/18/2024 9:57 AM EDT) White Blood Count 7.2 4.8 - 10.8 X10*3/uL [facility] Red Blood Count 4.75 4.20 - 5.50 X10*6/uL [facility] Hemoglobin 14.3 12.0 - 16.0 g/dl [facility] Hematocrit 42.2 37.0 - 47.0 % [facility] Mean Corpuscular Volume 88.8 80.0 - 98.0 fL [facility] Mean Corpuscular Hemoglobin 30.1 27.0 - 33.0 pg [facility] Mean Corpuscular HGB Conc 33.9 31.0 - 35.0 g/dl [facility] Red Cell Distribution Width 15.1 11.0 - 16.0 % [facility] Platelet Count 233 160 - 400 X10*3/uL [facility] Mean Platelet Volume 10.2 9.4 - 12.3 fL [facility] NRBC Pct Auto 0.0 0.0 - 0.2 /100WBC [facility] NRBC Abs Auto 0.000 0.0 - 0.012 X10*3/uL [facility] Blood Venous blood specimen / Unknown 11/18/2024 9:57 AM EDT 11/18/2024 11:08 AM EDT Lanny Vasquez MD LAB BLOOD ORDERAB LES Final Result Performing Organization Address [facility]/ZIP Co de Phone Number [facility] [address] [place] [phone] * T4, Free (11/18/2024 9:57 AM EDT) Free T4 (Free Thyroxine) 0.83 0.71 - 1.85 ng/dL [facility] 11/18/2024 9:57 AM EDT 11/18/2024 11:06 AM EDT Lanny Vasquez MD LAB BLOOD ORDERAB LES Final Result Performing Organization Address [facility] Co de Phone Number [facility] [address] [place] [phone] * (ABNORMAL) Hemoglobin A1c (11/18/2024 9:57 AM EDT) Hemoglobin A1c 6.3(H) <6.0 % [facility] Comment:Hemoglobin A1C Refer ence Range Adults: 4.8 - 6.0 % Non diabetic: < 6.0 % Goal: < 7.0 %Additional Action Suggested: > 8.0 %Note: Hemoglobin A1c results are invalid for patients with abnormal amounts of HbF. Blood transfusions may impact the HbA1c concentration in the patient sample. Estimated Average Glucose 134 mg/dL [facility] Comment:eAG = Estimated ave rage glucose which is %A1C expressed asaverage glucose, using the formula of the R3M-OqybnylOyhgrlr Glucose study (ADAG), Diabetes Care, Vol.31,#8,Dec. 2007 Blood Venous blood specimen / Unknown 11/18/2024 9:57 AM EDT 11/18/2024 11:08 AM EDT Lanny Vasquez MD LAB BLOOD ORDERAB LES Final Result [facility] [address] [place] [phone] [phone] * (ABNORMAL) Lipid Panel, Standard (11/18/2024 9:57 AM EDT) Triglycerides 149 <150 mg/dL [facility] Comment:Desirable Triglyceri de: less than 150 mg/dLBorderline High Triglyceride 150-199 mg/dLHigh Triglyceride: 200-499 mg/dLVery High Triglyceride: greater than or equal to 5OO mg/dL Cholesterol 121 <200 mg/dL [facility] Comment:Desirable Cholestero l: less than 200 mg/dLBorderline High Cholesterol: 200-239 mg/dLHigh Cholesterol: greater than 239 mg/dL LDL Cholesterol Calculated 59 <100 mg/dL [facility] Comment:Desirable LDL: less than 100 mg/dLNear Optimal/Above Optimal LDL: 110- 129 mg/dLBorderline High LDL: 130-159 mg/dLHigh LDL: 160-189 mg/dLVery High LDL: greater than or equal to 190 mg/dL HDL Cholesterol 33(L) >40 mg/dL [facility] Comment:Desirable HDL: great er than 40 mg/dL Note: This HDL assay may give artificially low results in patients with liver disease. Blood Venous blood specimen / Unknown 11/18/2024 9:57 AM EDT 11/18/2024 11:06 AM EDT us Lanny Vasquez MD LAB BLOOD ORDERAB LES Final Result [facility] [address] [place] [phone] * (ABNORMAL) Comprehensive Metabolic Panel (11/18/2024 9:57 AM EDT) Sodium 142 135 - 145 mmol/L [facility] Potassium 4.0 3.3 - 5.1 mmol/L [facility] Chloride 109(H) 96 - 108 mmol/L [facility] Carbon Dioxide 23 22 - 29 mmol/L [facility] Anion Gap 14 12 - 20 [facility] Urea Nitrogen (BUN) 15 9 - 16 mg/dL [facility] Creatinine, Serum 1.00 0.5 - 1.4 mg/dL [facility] Estimated Glomerular Filt Rate 55 [facility] Comment:Chronic Kidney Disea se: Estimated GFR < 60 mL/min/1.98l7Rnzgtf Kidney Disease: Estimated GFR < 15 mL/min/1.73m2 Glucose 119(H) 60 - 115 mg/dL [facility] Calcium 9.9 8.4 - 10.2 mg/dL [facility] Bilirubin, Total 0.5 0.0 - 1.0 mg/dL [facility] Aspartate Amino Transferase 29 5 - 31 U/L [facility] Alanine Aminotransferase 21 0 - 31 U/L [facility] Total Protein 6.8 6.5 - 8.0 g/dL [facility] Albumin Level 4.3 3.5 - 5.0 g/dL [facility] Alkaline Phosphatase 119(H) 39 - 117 U/L [facility] Blood Venous blood specimen / Unknown 11/18/2024 9:57 AM EDT 11/18/2024 11:06 AM EDT us Lanny Vasquez MD LAB BLOOD ORDERAB LES Final Result [facility] [address] [place] [phone] * CT Lung Screening Low dose (11/12/2024 9:12 PM EDT) Anatomical Region Laterality Modality Lung Computed Tomogra phy 11/12/2024 9:12 PM EDT Narrative 11/12/2024 9:13 PM EDT [address] [address] [address] Scan Report Signed Patient: Mora Manrique MR#: [id number] 7 : 1950 Acct:[id number] Age/Sex: 74 / F ADM Date: 11/11/24 Loc: HO.CT Attending Dr: Elzbieta Aguirre PA-C Ordering Physician: Elzbieta Aguirre PA-C Date of Service: 11/11/24 Procedure(s): CT lung screening Accession Number(s): [id number] cc: Elzbieta Aguirre PA-C; Lanny Ewing MD Report Number: [id number]: Total DLP = 58.00 mGy-cm CLINICAL HISTORY: [...] in OV> 11/12/242111 DD/ 11 TD/TT: 11/12/242111 Veneer Stock Layer: Procedure Note Wandater, Image - 11/12/[address] [address] [address] Scan Report Signed Patient: Mora Manrique EMR#: [id number] 7 : 1950cct:[id number] Age/Sex: 74 / FADM Date: 11/11/24 Loc: HO.CT Attending Dr: Elzbieta Aguirre PA-C Ordering Physician: Elzbieta Aguirre PA-C Date of Service: 11/11/24 Procedure(s): CT lung screening Accession Number(s): [id number] cc: Elzbieta Aguirre PA-C; Lanny Ewing MD Report Number: [id number]: Total DLP = 58.00 mGy-cm CLINICAL HISTORY: [...] in OV> 11/12/242111 DD/ 11 TD/TT: 11/12/242111 Veneer Stock Layer: [facility] External Provider IMG CT PROCEDURES Edited Result - Final * BI Mammogram Diagnostic Tomosynthesis Bilateral (06/28/2024 11:45 AM EST) Anatomical Region Laterality Modality Breast Bilateral Mammography 06/28/2024 11:4 5 AM EST Narrative 06/28/2024 2:02 PM EST [address] [place] [address] Mammography Report Signed Patient: Mora Manrique MR#: [id number] 7 : 1950 Acct:[id number] Age/Sex: 73 / F ADM Date: 06/28/24 Loc: MAMMO Attending Dr: Lanny Vasquez MD Ordering Physician: Neal Peters MD Results: 3.12M Probably Benign Finding - 12 month F/U Suggested Date of Service: 06/28/24 Follow Up: 12 month diagnos tic follow up Procedure(s): MM tomosynthesis diagnostic BI Accession Number(s): [id number] cc: Neal Peters MD; Lanny Ewing MD [...] 06/28/24 1359 DD/ 1145 TD/TT: 06/28/24 1205 Veneer Stock Layer: Procedure Note Donotuseinterpreter, Image - 06/28/2024 [facility] [address] [place] [address] Mammography Report Signed Patient: Mora Manrique EMR#: [id number] 7 : 3Acct:[id number] Age/Sex: 73 / FADM Date: 06/28/24 Loc: RODOLFO Attending Dr: Lanny Vasquez MD Ordering Physician: Neal Peters MDResults: 3.12M Probably Benign Finding - 12 month F/U Suggested Date of Service: 06/28/24Follow Up: 12 month diagnos tic follow up Procedure(s): MM tomosynthesis diagnostic BI Accession Number(s): [id number] cc: Neal Peters MD; Lanny Ewing MD [...] by: Yuliya Khalil DO 06/28/2024 01:59 PM [facility] Dictated By: Yuliya Khalil DO Signed By: <Electronically signed by Yuliya Khalil DO in OV> 06/28/24 1359 DD/ 1145 TD/TT: 06/28/24 1205 Veneer Stock Layer: [facility] External Provider IMG BI PROCEDURES Final Result * Hepatitis C Antibody with Reflex to HCV, RNA, Quantitative, Real-Time PCR (10/13/2023 10:30 AM EDT) Hepatitis C Antibody Nonreactive Nonreactive [facility] Comment:Antibodies to HCV no t detected; does not exclude early acuteHCV infection. Blood Venous blood specimen / Unknown 10/13/2023 10:30 AM EDT 10/13/2023 11:19 AM EDT Lanny Vasquez MD LAB BLOOD ORDERAB LES Final Result [facility] [address] [place] [phone] [phone] * Hm Colonoscopy (09/17/2018 1:13 PM EDT) us Historical Provider HEALTH MAINTENANCE Final Result from Last 3 Months or Most Recently Relevant to Health Maintenance Insurance MEDICARE [facility] Care Teams Heel Blacker Relationship Specialty Start Date End Date Lanyn Ewing MD [address] [place] [phone] PCP - General Internal Medicine 03/03/23
--- OUTSIDE RECORDS SUMMARY | 2025-01-20 14:26 | XMS_ITS | Encounter Summary ---
Author Organization [facility] Address [address] [place] [address] Phone Care Team Providers Care Procedure Writer Name Role Phone Lanny Roach Primary Care Provid er Encounter Details Date Type Department Care Team (Late Contact Info) Description 11/17/2024 Documentation Only [facility] [address] [place] [address] Mae Olsen [address] [place] [address] Social History Tobacco Use Types [...] [facility] [address] [place] [address] Tiara Barrientos MD [address] [place] [address] [place] [address] documented as of this encounter Visit Diagnoses Not on filedocumented in this encounter Care Teams Procedure Writer Relationship Specialty Start Date End Date Lanny Roach [address] [place] [phone] PCP - General 03/10/24 documented as of this encounter
--- OUTSIDE RECORDS SUMMARY | 2025-01-20 14:26 | XMS_ITS | Encounter Summary ---
Author Organization [facility] Address [address] [place] [address] Phone Care Team Providers Care B Operator Name Role Phone Lanny Roach Primary Care Provid er Encounter Details Date Type Department Care Team (Late Contact Info) Description 11/17/2024 Documentation Only [facility] [address] [place] [address] Mae Olsen [address] [place] [address] Social History Tobacco Use Types [...] [facility] [address] [place] [address] Tiara Barrientos MD [address] [place] [address] [place] [address] documented as of this encounter Visit Diagnoses Not on filedocumented in this encounter Care Teams B Operator Relationship Specialty Start Date End Date Lanny Roach [address] [place] [phone] PCP - General 03/10/24 documented as of this encounter
--- OUTSIDE RECORDS SUMMARY | 2025-01-20 14:26 | XMS_ITS | Encounter Summary ---
Author Organization [facility] Address [address] [place] [address] Phone Care Team Providers Care Senior Clerk Name Role Phone Lanny Roach Primary Care Provid er Encounter Details Date Type Department Care Team (Late Contact Info) Description 09/03/2023 Documentation Only [facility] [address] [place] [address] Mae Olsen [address] [place] [address] Social History Tobacco Use Types [...] [facility] [address] [place] [address] Tiara Barrientos MD [address] [place] [address] [place] [address] documented as of this encounter Visit Diagnoses Not on filedocumented in this encounter Care Teams Senior Clerk Relationship Specialty Start Date End Date Lanny Roach [address] [place] [phone] PCP - General 03/10/24 documented as of this encounter
--- OUTSIDE RECORDS SUMMARY | 2025-01-20 14:26 | XMS_ITS | Clinical Summary ---
Author Organization [facility] [place], Address [address] [place] [address] [place] [address] Phone Care Team Providers Care Medical Transcription Supervisor Name Role Phone Lanny Roach Primary Care [...] [facility] [address] [place] [phone] Mae Olsen 11/17/2024 Documentation Only [facility] [address] [place] [address] Mae Olsen 11/17/2024 Documentation Only [facility] [address] [place] [phone] Mae Olsen 11/17/2024 Documentation Only [facility] [address] [place] [address] Mae Olsen [...] Visit [facility] [place], [address] [place] [address] Tiara [...] exists Insurance Medicare Medicaid [place] Care Teams Medical Transcription Supervisor Relationship Specialty Start Date End Date Lanny Roach [address] [place] [phone] PCP - General 03/10/24
--- OUTSIDE RECORDS SUMMARY | 2025-01-20 14:26 | XMS_ITS | Encounter Summary ---
Author Organization [facility] Address [address] [place] [address] Phone Care Team Providers Care Echo Vascular Tech Name Role Phone Lanny Roach Primary Care Provid er Encounter Details Date Type Department Care Team (Late Contact Info) Description 11/17/2024 Documentation Only [facility] [address] [place] [address] Mae Olsen [address] [place], [...] [facility] [address] [place] [address] Tiara Barrientos MD [address] [place] [address] [place] [address] documented as of this encounter Visit Diagnoses Not on filedocumented in this encounter Care Teams Echo Vascular Tech Relationship Specialty Start Date End Date Lanny Roach [address] [place] [phone] PCP - General 03/10/24 documented as of this encounter
--- OUTSIDE RECORDS SUMMARY | 2025-01-20 14:26 | XMS_ITS | Encounter Summary ---
Author Organization [facility] Address [address] [place] [address] Phone Care Team Providers Care Binman Name Role Phone Lanny Roach Primary Care Provid er Encounter Details Date Type Department Care Team (Late Contact Info) Description 01/05/2025 Documentation Only [facility] [address] [place] [address] Mae Olsen [address] [place] [address] Social History Tobacco Use Types [...] [facility] [address] [place] [address] Tiara Barrientos MD [address] [place] [address] [place] [address] documented as of this encounter Visit Diagnoses Not on filedocumented in this encounter Care Teams Binman Relationship Specialty Start Date End Date Lanny Roach [address] [place] [phone] PCP - General 03/10/24 documented as of this encounter
--- OUTSIDE RECORDS SUMMARY | 2025-01-20 14:26 | XMS_ITS | Encounter Summary ---
Author Organization [facility] Address [address] [place] [address] Phone Care Team Providers Care Principal Ios Developer Name Role Phone Lanny Roach Primary Care Provid er Encounter Details Date Type Department Care Team (Late Contact Info) Description 09/03/2023 Documentation Only [facility] [address] [place] [address] Mae Olsen [address] [place] [address] Social History Tobacco Use Types [...] [facility] [address] [place] [address] Tiara Barrientos MD [address] [place] [address] [place] [address] documented as of this encounter Visit Diagnoses Not on filedocumented in this encounter Care Teams Principal Ios Developer Relationship Specialty Start Date End Date Lanny Roach [address] [place] [phone] PCP - General 03/10/24 documented as of this encounter
--- OUTSIDE RECORDS SUMMARY | 2025-01-20 14:26 | XMS_ITS | Encounter Summary ---
Author Organization [facility] Address PO [facility] [address] [place] [address] Phone Care Team Providers Care Cloth Examiner Name Role Phone Lanny Roach Primary Care Provid er Encounter Details Date Type Department Care Team (Late st Contact Info) Description 12/31/2021 Documentation Only [facility] [address] [place] [address] Gabino Donnelly MD [address] [place] [address] [place] [address] Social History Tobacco Use Types [...] Visit [facility] [address] [place] [address] Tiara Barrientos MD [address] [address] documented as of this encounter Visit Diagnoses Not on filedocumented in this encounter Care Teams Cloth Examiner Relationship Specialty Start Date End Date Lanny Roach [address] [place] [address] [phone] PCP - General 03/10/24 documented as of this encounter
--- OUTSIDE RECORDS SUMMARY | 2025-01-20 14:26 | XMS_ITS | Encounter Summary ---
Author Organization [facility] Address [address] [place] [address] Phone Care Team Providers Care Ben Day Artist Name Role Phone Lanny Roach Primary Care Provid er Encounter Details Date Type Department Care Team (Late Contact Info) Description 09/03/2023 Documentation Only [facility] [address] [place] [address] Mae Olsen [address] [place] [address] Social History Tobacco Use Types [...] [facility] [address] [place] [address] Tiara Barrientos MD [address] [place] [address] [place] [address] documented as of this encounter Visit Diagnoses Not on filedocumented in this encounter Care Teams Ben Day Artist Relationship Specialty Start Date End Date Lanny Roach [address] [place] [phone] PCP - General 03/10/24 documented as of this encounter
--- OUTSIDE RECORDS SUMMARY | 2025-01-20 14:26 | XMS_ITS | Encounter Summary ---
Author Organization [facility] Address [address] [place] [address] Phone Care Team Providers Care Hoof And Shoe Inspector Name Role Phone Lanny Roach Primary Care Provid er Encounter Details Date Type Department Care Team (Late Contact Info) Description 09/03/2023 Documentation Only [facility] [address] [place] [address] Mae Olsen [address] [place] [address] Social History Tobacco Use Types [...] [facility] [address] [place] [address] Tiara Barrientos MD [address] [place] [address] [place] [address] documented as of this encounter Visit Diagnoses Not on filedocumented in this encounter Care Teams Hoof And Shoe Inspector Relationship Specialty Start Date End Date Lanny Raoch [address] [place] [phone] PCP - General 03/10/24 documented as of this encounter
--- OUTSIDE RECORDS SUMMARY | 2025-01-20 14:26 | XMS_ITS | Encounter Summary ---
Author Organization [facility] Address [address] [place] [address] Phone Care Team Providers Care Scrub Nurse Name Role Phone Lanny Roach Primary Care Provid er Encounter Details Date Type Department Care Team (Late Contact Info) Description 09/03/2023 Documentation Only [facility] [address] [place] [address] Mae Olsen [address] [place] [address] Social History Tobacco Use Types [...] [facility] [address] [place] [address] Tiara Barrientos MD [address] [place] [address] [place] [address] documented as of this encounter Visit Diagnoses Not on filedocumented in this encounter Care Teams Scrub Nurse Relationship Specialty Start Date End Date Lanny Roach [address] [place] [phone] PCP - General 03/10/24 documented as of this encounter
--- OUTSIDE RECORDS SUMMARY | 2025-01-20 14:26 | XMS_ITS | Encounter Summary ---
Author Organization [facility] Address [address] [place] [address] Phone Care Team Providers Care Bulk Mail Clerk Name Role Phone Lanny Roach Primary Care Provid er Encounter Details Date Type Department Care Team (Late Contact Info) Description 03/29/2024 Documentation Only [facility] [address] [place] [address] Mae Olsen [address] [place], [place] [...] Visit [facility] [address] [place] [address] Tiara Barrientos MD [address] [place] [address] [place] [address] documented as of this encounter Visit Diagnoses Not on filedocumented in this encounter Care Teams Bulk Mail Clerk Relationship Specialty Start Date End Date Lanny Roach [address] [place] [phone] PCP - General 03/10/24 documented as of this encounter
--- OUTSIDE RECORDS SUMMARY | 2025-01-20 14:26 | XMS_ITS | Encounter Summary ---
Author Organization [facility] Address [address] [place] [address] Phone Care Team Providers Care Ranch Hand Name Role Phone Lanny Roach Primary Care Provid er Encounter Details Date Type Department Care Team (Late Contact Info) Description 09/03/2023 Documentation Only [facility] [address] [place] [address] Mae Olsen [address] [place] [address] Social History Tobacco Use Types [...] [facility] [address] [place] [address] Tiara Barrientos MD [address] [place] [address] [place] [address] documented as of this encounter Visit Diagnoses Not on filedocumented in this encounter Care Teams Ranch Hand Relationship Specialty Start Date End Date Lanny Roach [address] [place] [phone] PCP - General 03/10/24 documented as of this encounter
--- OUTSIDE RECORDS SUMMARY | 2025-01-20 14:26 | XMS_ITS | Encounter Summary ---
Author Organization [employer] Address [address] [place] [address] 7t [place] [address] Care Team Providers Care Staff Readiness Officer Name Role Phone Lanny Ewing MD Primary Care Pro vider Reason for Referral * Consultation (Routine) - Closed Specialty Diagnoses / Procedures Referred By Kulwinder dickson Referred To Contact Pharmacy Diagnoses Essential hypertension Gertrudis Holder MD [address] [place] [address] Phone: tel: fax: Referral ID Status Reason Start Date Expiration Date V isits Requested Visits Authorized [id number] Closed Continuity of Care 09/22/2024 09/22/2025 6 6 Encounter Details Date Type Department Care Team (Late st Contact Info) Description 09/20/2024 Orders Only [facility] [address] [place], [place] [phone] Gertrudis Holder MD [address] [place], [place] [phone] Essential hypertension (Primary Dx) Social History Tobacco [...] Description 01/26/2025 2:15 PM EDT Office Visit [facility] [address] [place] [address] Lanny Ewing MD [address] [place], [place] [phone] Scheduled Referrals Name Type Priority Associated Diagnoses [...] documented as of this encounter Care Teams Staff Readiness Officer Relationship Specialty Start Date End Date Lanny Ewing MD [address] [place] [phone] PCP - General Internal Medicine 03/03/23 documented as of this encounter
--- OUTSIDE RECORDS SUMMARY | 2025-01-20 14:26 | XMS_ITS | Encounter Summary ---
Author Organization [employer] Address [address] [place] [address] 7t [place] [address] Care Team Providers Care Medical Terminologist Name Role Phone Lanny Ewing MD Primary Care Pro vider Reason for Visit * Reason Comments Med Refill Encounter Details Date Type Department Care Team ([facility] st Contact Info) Description 07/19/2023 Refill [facility] [address] [place] [address] Lanny Ewing MD [address] [place] [address] Social History Tobacco Use Types Packs/Day Years [...] Description 01/26/2025 2:15 PM EDT Office Visit [facility] [address] [place] [address] [phone] Lanny Ewing MD [address] [place] [phone] documented as of this encounter Visit Diagnoses Not on filedocumented in this encounter Care Teams Medical Terminologist Relationship Specialty Start Date End Date Lanny Ewing MD [address] [place] [address] [phone] PCP - General Internal Medicine 03/03/23 documented as of this encounter
--- OUTSIDE RECORDS SUMMARY | 2025-01-20 14:26 | XMS_ITS | Encounter Summary ---
Author Organization [facility] Address [address] [place] [address] Phone Care Team Providers Care Cloth Piecer Name Role Phone Lanny Roach Primary Care Provid er Encounter Details Date Type Department Care Team (Late Contact Info) Description 09/03/2023 Documentation Only [facility] [address] [place] [address] Mae Olsen [address] [place] [address] Social History Tobacco Use Types [...] [facility] [address] [place] [address] Tiara Barrientos MD [address] [place] [address] [place] [address] documented as of this encounter Visit Diagnoses Not on filedocumented in this encounter Care Teams Cloth Piecer Relationship Specialty Start Date End Date Lanny Roach [address] [place] [address] [phone] PCP - General 03/10/24 documented as of this encounter
--- OUTSIDE RECORDS SUMMARY | 2025-01-20 14:26 | XMS_ITS | Encounter Summary ---
Author Organization [facility] Address [address] [place] [address] Phone Care Team Providers Care Storage Facility Housekeeper Name Role Phone Lanny Roach Primary Care Provid er Encounter Details Date Type Department Care Team (Late Contact Info) Description 09/03/2023 Documentation Only [facility] [address] [place] [address] Mae Olesn [address] [place] [address] Social History Tobacco Use Types [...] [facility] [address] [place] [address] Tiara Barrientos MD [address] [place] [address] [place] [address] documented as of this encounter Visit Diagnoses Not on filedocumented in this encounter Care Teams Storage Facility Housekeeper Relationship Specialty Start Date End Date Lanny Roach [address] [place] [phone] PCP - General 03/10/24 documented as of this encounter
--- OUTSIDE RECORDS SUMMARY | 2025-01-20 14:26 | XMS_ITS | Encounter Summary ---
Author Organization [facility] Address [address] [place] [address] Phone Care Team Providers Care Garage Supervisor Name Role Phone Lanny Roach Primary Care Provid er Encounter Details Date Type Department Care Team (Late Contact Info) Description 03/22/2024 Documentation Only [facility] [address] [place] [address] Mae Olsen [address] [place] [address] Social History Tobacco Use Types [...] [facility] [address] [place] [address] Tiara Barrientos MD [address] [place] [address] [place] [address] documented as of this encounter Visit Diagnoses Not on filedocumented in this encounter Care Teams Garage Supervisor Relationship Specialty Start Date End Date Lanny Roach [address] [place] [phone] PCP - General 03/10/24 documented as of this encounter
--- OUTSIDE RECORDS SUMMARY | 2025-01-20 14:26 | XMS_ITS | Encounter Summary ---
Author Organization [facility] Address [address] [place] [address] Phone Care Team Providers Care Emergency Room Nurse Name Role Phone Lanny Roach Primary Care Provid er Encounter Details Date Type Department Care Team (Late Contact Info) Description 09/03/2023 Documentation Only [facility] [address] [place] [address] Mae Olsen [address] [place] [address] Social History Tobacco Use Types [...] [facility] [address] [place] [address] Tiara Barrientos MD [address] [place] [address] [place] [address] documented as of this encounter Visit Diagnoses Not on filedocumented in this encounter Care Teams Emergency Room Nurse Relationship Specialty Start Date End Date Lanny Roach [address] [place] [phone] PCP - General 03/10/24 documented as of this encounter
--- OUTSIDE RECORDS SUMMARY | 2025-01-20 14:26 | XMS_ITS | Encounter Summary ---
Author Organization [facility] Address [address] [place] [address] Phone Care Team Providers Care Teller Coordinator Name Role Phone Lanny Roach Primary Care Provid er Encounter Details Date Type Department Care Team (Late Contact Info) Description 09/03/2023 Documentation Only [facility] [address] [address] Mae Olsen [address] [place] [address] Social History Tobacco Use Types [...] [facility] [address] [place] [address] Tiara Barrientos MD [address] [place] [address] [place] [address] documented as of this encounter Visit Diagnoses Not on filedocumented in this encounter Care Teams Teller Coordinator Relationship Specialty Start Date End Date Lanny Roach [address] [place] [phone] PCP - General 03/10/24 documented as of this encounter
--- OUTSIDE RECORDS SUMMARY | 2025-01-20 14:26 | XMS_ITS | Encounter Summary ---
Author Organization [facility] Address [address] [place] [address] Phone Care Team Providers Care Ditch Rider Name Role Phone Lanny Roach Primary Care Provid er Encounter Details Date Type Department Care Team (Late Contact Info) Description 09/03/2023 Documentation Only [facility] [address] [place] [address] Mae Olsen [address] [place] [address] Social History Tobacco Use Types [...] Visit [facility] [address] [place] [address] Tiara Barrientos MD [address] [place] [address] [place] [address] documented as of this encounter Visit Diagnoses Not on filedocumented in this encounter Care Teams Ditch Rider Relationship Specialty Start Date End Date Lanny Roach [address] [place] [phone] PCP - General 03/10/24 documented as of this encounter
--- OUTSIDE RECORDS SUMMARY | 2025-01-20 14:26 | XMS_ITS | Encounter Summary ---
Author Organization [facility] Address [address] [place] [address] Phone Care Team Providers Care Computer Hardware Technician Name Role Phone Lanny Roach Primary Care Provid er Encounter Details Date Type Department Care Team (Late Contact Info) Description 09/03/2023 Documentation Only [facility] [address] [place] [address] Mae Olsen [address] [place] [address] Social History Tobacco Use Types [...] [facility] [address] [place] [address] Tiara Barrientos MD [address] [place] [address] [place] [address] documented as of this encounter Visit Diagnoses Not on filedocumented in this encounter Care Teams Computer Hardware Technician Relationship Specialty Start Date End Date Lanny Roach [address] [place] [phone] PCP - General 03/10/24 documented as of this encounter
--- OUTSIDE RECORDS SUMMARY | 2025-01-20 14:26 | XMS_ITS | Encounter Summary ---
Author Organization [employer] Address [address] [place] [address] Care Team Providers Care Loss Mitigation Specialist Name Role Phone Adenike Souza Primary Care Provider Lanny Whitaker MD Primary Care Pro vider Reason for Visit * Reason Comments Med Refill Encounter Details Date Type Department Care Team (Late st Contact Info) Description 01/02/2023 Refill [facility] [address] [place] [address] [phone] Adenike Souza FNP Social History Tobacco Use [...] Description 01/26/2025 2:15 PM EDT Office Visit [facility] [address] [place] [address] [phone] Lanny Ewing MD [address] [place], [place] [phone] documented as of this encounter Visit Diagnoses Not on filedocumented in this encounter Care Teams Loss Mitigation Specialist Relationship Specialty Start Date End Date Adenike Souza FNP PCP - General Family Medicine 01/15/22 03/02/23 Lanny Ewing MD [address] [place] [address] [phone] PCP - General Internal Medicine 03/03/23 documented as of this encounter
--- OUTSIDE RECORDS SUMMARY | 2025-01-20 14:26 | XMS_ITS | Clinical Summary ---
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 Osteopenia 02/22/2024 Proteinuria 02/22/2024 Recurrent major depressive episodes, mild ([facility] V24) 02/22/2024 Seropositive rheumatoid arth ritis ([facility] V24, [facility] V28) 02/22/2024 Stage 3 chronic kidney disease ([facility] V24, [facility] V28) 02/22/2024 Type 2 diabetes mellitus wit h stage 3 chronic kidney disease, without long-term current use of insulin ([facility] V24, [facility] V28) 02/22/2024 Social History Tobacco Use Types [...] Insurance MEDICARE MEDICAID - [place] Care Teams Pct Relationship Specialty Start Date End Date Lanny Ewing MD [address] [phone] PCP - General 10/23/23
--- OUTSIDE RECORDS SUMMARY | 2025-01-20 14:26 | XMS_ITS | Encounter Summary ---
Author Organization [employer] Address [address] [place] [address] 7t [place] [address] Care Team Providers Care Manager Ct Name Role Phone Lanny Ewing MD Primary Care Pro vider Encounter Details Date Type Department Care Team ([facility] st Contact Info) Description 01/19/2025 Results Follow-Up [facility] [address] [place] [address] aLnny Ewing MD [address] [place] [address] XR Lumbar Spine 2-3 Views, Albumin, Random Urine W/Creatinine Social History Tobacco Use Types Packs/Day Years [...] Encounter Note - Lanny Vasquez MD - 01/19/2025 3:52 PM EDT Please call patient to advise to come to already scheduled apt with me to go over abnormal labs Thanks * Result Encounter Note - Lanny Vasquez MD - 01/19/2025 3:43 PM EDT Please call patient to advise to come to already scheduled apt with me to go over abnormal image Thanks documented in this encounter Plan of Treatment Upcoming Encounters Date Type Department Care Team (Late st Contact Info) Description 01/26/2025 2:15 PM EDT Office Visit [facility] [address] [place] [address] Lanny Ewing MD [address] [place] [address] documented as of this encounter Goals Goal [...] documented as of this encounter Care Teams Manager Ct Relationship Specialty Start Date End Date Lanny Ewing MD [address] [place] [phone] PCP - General Internal Medicine 03/03/23 documented as of this encounter
[2025-01-20 17:30] LABS: MANUAL DIFF FLAG NO
[2025-01-20 17:34] LABS: Hematocrit 40.8 % (37.0-47.0); Hemoglobin 13.9 g/dl (12.0-16.0); Imm Gran Abs Auto 0.02 X10*3/uL (0.00-0.03); Imm Gran Pct Auto 0.2 % (0.0-0.4); Lymphocytes Absolute Auto 3.2 X10*3/uL (1.2-4.9); Mean Corpuscular HGB Conc 34.1 g/dl (31.0-35.0); Mean Corpuscular Hemoglobin 30.8 pg (27.0-33.0); Mean Corpuscular Volume 90.3 fL (80.0-98.0); NRBC Abs Auto 0.000 X10*3/uL (0.0-0.012); NRBC Pct Auto 0.0 /100WBC (0.0-0.2); Platelet Count 244 X10*3/uL (160-400); Red Blood Count 4.52 X10*6/uL (4.20-5.50); White Blood Count 8.7 X10*3/uL (4.8-10.8)
[2025-01-20 18:37] LABS: Alanine Aminotransferase 21 U/L (0-31); Albumin Level 4.5 g/dL (3.5-5.0); Alkaline Phosphatase 115 U/L (39-117); Anion Gap 12 (12-20); Aspartate Amino Transferase 26 U/L (5-31); Blood Urea Nitrogen 20 mg/dL (9-16); Calcium 9.4 mg/dL (8.4-10.2); Carbon Dioxide 25 mmol/L (22-29); Chloride 109 mmol/L (96-108); Estimated Glomerular Filt Rate 45; Potassium 4.4 mmol/L (3.3-5.1); Sodium 142 mmol/L (135-145); Total Protein 7.1 g/dL (6.5-8.0)
[2025-01-20 18:48] LABS: Free T4 (Free Thyroxine) 0.97 ng/dL (0.71-1.85)
[2025-01-20 18:53] LABS: Thyroid Stimulating Hormone 3.28 uIU/mL (0.32-4.0)
[2025-01-20 19:54] LABS: Uric Acid 2.4 mg/dL (2.4-5.7)
== END 2025-01-20 14:23 | disposition home or self-care (01) ==
LOC: HO.HHCL 14:22
PROVIDERS: Student in an Organized Health Care Education/Training Program; PCP Student in an Organized Health Care Education/Training Program; Visit Provider Student in an Organized Health Care Education/Training Program
DX: M1A.39X0 Chronic gout due to renal impairment, multiple sites, without tophus (tophi) (principal); R94.6 Abnormal results of thyroid function studies
CPT/HCPCS: 36415; 80053; 84439; 84443; 84550; 85025; 85652; 86140

== ENCOUNTER 2025-02-22 11:40 | Outpatient (AMB) | payer MEDICARE, SELFPAY ==
--- NOTE | 2025-02-22 11:43 | A.OFFVIS_ITS ---
Vital Signs 02/22/25 11:48 Height 5 ft 5 in Weight 192 lb 0.362 oz BMI 32.0 BP 130/62 Blood Pressure Location Lt brachial Position Sitting Pulse 79 Pulse Source Pulse Oximeter Pulse Oximetry (%) 98 Oxygen Delivery Method Room Air Intake Visit Reasons: Gout/OA Intake Note: Patient presents for Gout/OA follow up. Allergies latex (LATEX) Allergy (Intermediate, Verified 02/22/25 11:47) BLISTERS abatacept (From Orencia) Allergy (Unknown, Verified 02/22/25 11:47) Itching adalimumab (From Humira) Allergy (Verified 02/22/25 11:47) dizziness aspirin Adverse Reaction (Intermediate, Verified 02/22/25 11:47) abdominal pain Medication List - Last Reconciled 02/22/25 by Aleyda Wade MD albuterol sulfate 2.5 mg inhalation Q4H PRN albuterol sulfate 90 mcg/actuation 2 puffs inhalation Q4H PRN allopurinol 300 mg PO DAILY 90 days azelastine 1 spray intranasal BID PRN bisacodyl 10 mg (2 x 5 mg) PO BEDTIME 90 days blood sugar diagnostic (FreeStyle Lite Strips) As directed calcium carbonate-vitamin D3 600 mg-20 mcg (800 unit) 1 tab PO citalopram 20 mg PO DAILY colchicine 0.6 mg PO DAILY PRN dapagliflozin propanediol (Farxiga) 10 mg PO DAILY dexlansoprazole 60 mg PO QAM ferrous gluconate 324 mg PO Q OTHER DAY gabapentin 300 mg PO TID 90 days hydrochlorothiazide 12.5 mg PO DAILY loratadine (Allergy Relief (loratadine)) 10 mg PO DAILY melatonin 10 mg PO BEDTIME PRN montelukast 10 mg PO BEDTIME semaglutide (Ozempic) mg subcut simvastatin 20 mg PO BEDTIME umeclidinium-vilanterol 62.5-25 mcg/actuation (Anoro Ellipta) 1 ea inhalation DAILY zolpidem 5 mg PO BEDTIME PRN HPI Comments Details: Patient is a 74 y.o. female with asthma, diabetes (A1C ), HTN, HLD, depression, polyarticular OA and crystal proven non erosive gout here today for follow up Interval History: Last seen 08/26/24 with me. - On allopurinol 300mg daily and gabapentin 300mg tid - Low back pain doing better with conservative measures from last visit - AM stiffness about 30 mins - Denies any gout flares Today - On allopurinol 300mg daily and gabapentin 300mg tid - Doing well overall - No gout flares - Complaining of hand and knee pain Rheumatologic History: Presented over 5 years ago with joint pain. There was no evidence of synovitis but serologies came back with positive CCP. She was treated as seropositive rheumatoid arthritis and had been on several regimens. However these treatment options were met with little to no response to her joint pain and so the diagnosis was brought into question. She has been off of her DMARDs since 2021. She has not had any flare-ups of her joints apart from the monoarticular flares of gout. Her x-rays did show erosions which could be attributed to crystal disease versus rheumatoid arthritis. 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 Medication History: Plaquenil: 06/2016-11/2019 Arava:08/2019-11/2019 Methotrexate: [id number] relief of symptoms Humira: August 2020-self discontinued due to fatigue Prednisone: 06/2014-12/2019 GI upset Enbrel: Considered but not started due to latex allergy Orencia: 05/2021- 07/2021 Full body itching, no improvement in symptoms Kevzara: 07/2021-December 2021 Febuxostat Allopurinol started due to insurance issues with febuxostat Current Rheumatology Medication(s): Allopurinol 300mg Colchicine 0.6mg prn Gabapentin 300mg tid [facility] Medical History (Updated 02/22/25 @ 12:47 by Aleyda Wade MD) History of right breast cancer (~2003) CKD (chronic kidney disease), stage III Hypoxemia Pneumonia Acute exacerbation of chronic obstructive pulmonary disease (COPD) SUNNI (acute kidney injury) Abnormal mammogram of right breast Type 2 diabetes mellitus Osteopenia Personal history of nicotine dependence Back pain Chronic lung disease Acute and chronic respiratory failure with hypoxia History of Helicobacter pylori infection Osteoarthritis of both feet Lymphedema COVID-19 vaccine administered Hx of cardiac murmur Depression Anemia Hx of gout Elevated cholesterol HTN (hypertension) COPD (chronic obstructive pulmonary disease) GERD (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 reflux disease) [facility] systemic steroid user Seropositive rheumatoid arthritis Asthma Surgical History Hx of hand surgery H/O cystoscopy Hx of thumb surgery H/O colonoscopy H/O local excision of skin lesion History of bilateral carpal tunnel release S/P lumpectomy, right breast History of esophagogastroduodenoscopy (EGD) Family History Father Throat cancer Mother Asthma Osteoarthritis Sister Breast cancer Social History Household Members: None Housing: House Do you presently have visiting nurse or other home services: No Unable to assess alcohol history related to: Unknown Alcohol intake: never Patient Tobacco Use Status: Former Tobacco user Tobacco use type: Cigarette Years Smoked: (onset 17yo, 1/2ppd x 45yrs, 22pyh - quit 2012) e-Cigarette/Vaping Use: Never Used service: No Current occupational status: retired 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 Female Reproductive History Menstrual Age of Menarche: 14 Review of Systems Const Details: Review of Systems Constitutional: Denies fever, chills, weight loss ENT: Denies vision changes, eye pain or eye redness, dental caries, dry mouth GI: Denies nausea, vomiting, diarrhea, abdominal pain, change in BM Pulm: Denies SOB, MONTE, hemoptysis, wheezing Cards: Denies chest pain, palpitations Skin: Denies Raynaud's, rash, nail changes, photosensitivity, COMPUTER ANALYST: Denies headaches, weakness, paresthesias, recurrent falls MSK: as per HPI All other systems reviewed and are unremarkable except noted above Physical Exam Exam Exam: Vital signs reviewed Physical Examination CONSTITUITIONAL Patient alert and cooperative. Well appearing and in no apparent painful distress MSK Hands * Right Hand: Able to make a fist. No swelling or tenderness to palpation of the MCPs, PIPs or DIPs. * Left Hand: Able to make a fist. No swelling or tenderness to palpation of the MCPs, PIPs or DIPs. * Herbedens and Bouchards nodes noted bilaterally Wrists * Right Wrist: Full ROM to flexion and extension. No swelling or TTP * Left Wrist: Full ROM to flexion and extension. No swelling or TTP Elbows * Right Elbow: Full ROM. No swelling or TTP. No TTP of the medial epicondyle. No TTP of the lateral epicondyle * Left Elbow: Full ROM. No swelling or TTP. No TTP of the medial epicondyle. No TTP of the lateral epicondyle Shoulders * Right shoulder: Full ROM. No swelling noted. No TTP of the AC joint. No TTP of the subacromial bursa. No TTP of the posterior shoulder * Left shoulder: Full ROM. No swelling noted. No TTP of the AC joint. No TTP of the subacromial bursa. No TTP of the posterior shoulder Knees * Right knee: Full ROM. No swelling noted. No TTP of the knee joint line. No TTP of pes anserine bursa * Left knee: Full ROM. No swelling noted. No TTP of the knee joint line. No TTP of pes anserine bursa. * Crepitations felt bilaterally Ankles * Right ankle: Good ankle dorsiflexion and plantar flexion. No swelling. No TTP of the ankle joint * Left ankle: Good ankle dorsiflexion and plantar flexion. No swelling. No TTP of the ankle joint Feet * Right foot: Negative squeeze test * Left foot: Negative squeeze test Tender points? * No tenderness to palpation of the bilateral trapezius, supraspinatus, anterior costochondral junctions, bilateral suboccipital muscle insertions SKIN No rashes Vital Signs: Last Vital Signs Pulse 79 02/22/25 11:48 BP 130/62 02/22/25 11:48 Pulse Ox 98 02/22/25 11:48 Oxygen Delivery Method Room Air 02/22/25 11:48 BMI result Body Mass Index 32.0 Results Reviewed Results Reviewed: Laboratory Tests 11/18/24 01/20/25 09:57 14:36 WBC 8.7 RBC 4.52 Hgb 13.9 Hct 40.8 Plt Count 244 ESR 7 Sodium 142 Potassium 4.4 Chloride 109 H Carbon Dioxide 25 BUN 20 H Creatinine 1.17 Uric Acid 2.4 AST 26 ALT 21 C-Reactive Protein 0.36 25-OH Vitamin D Total 62.9 XR L Spine 12/2024 FINDINGS: There are 5 nonrib-bearing lumbar segments. There is 13 degrees levoscoliosis with apex at the inferior L2. L2-3 demonstrates mild disc space narrowing and subtle retrolisthesis. Disc spaces are preserved otherwise. L3-4 demonstrates mild facet sclerosis. There is moderate abdominal aortic vascular calcifications extending into the common iliac arteries. XR/XR lumbar spine 2-3V IMPRESSION: Mild degenerative changes, as noted above. DEXA 02/2024 FINDINGS: AP SPINE L1-L4 (excluding L3): The data of L1-L4 has been changed to exclude the L3 vertebral body, because at this level may cause overestimation of lumbar spine density. Current: BMD 0.996 g/cm2, Z-score -0.7, T-score -1.5, osteopenia, 2.3% increase from previous, 1.4% increase from baseline (<5% change is not significant). Prior: BMD 0.974 g/cm2. Baseline: BMD 0.982 g/cm2. LEFT FEMUR, NECK: Current: BMD 0.936 g/cm2, Z-score 0.4, T-score -0.7, normal. Prior: BMD 0.939 g/cm2. Baseline: BMD 0.912 g/cm2. LEFT FEMUR, TOTAL: Current: BMD 1.037 g/cm2, Z-score 1.1, T-score 0.2, normal, 4.0% increase from previous, 8.1% increase from baseline (<5% change is not significant). Prior: BMD 0.997 g/cm2. Baseline: BMD 0.959 g/cm2. 10-YEAR FRACTURE RISK PREDICTION, FRAX: Major osteoporotic fracture (clinical spine, forearm, hip or shoulder) 5.7%. Hip fracture 0.6%. Assessment & Plan Assessment & Plan (1) Gout: Comment: Allopurinol: December 2021 - March 2022 Febuxostat: March 2022 - February 2024 (Insurance Denied) Allopurinol: February 2024 - Code(s): M10.9 - Gout, unspecified Category: Medical Qualifiers: Gout site: multiple sites Gout etiology: due to renal impairment Chronicity: chronic Presence of tophus: without tophus Qualified Code(s): M1A.39X0 - Chronic gout due to renal impairment, multiple sites, without tophus (tophi) Plan: #Non crystal proven erosive gout Patient is a 74-year-old female with non crystal proven erosive gout here today for follow up. Patient's uric acid is at goal. Plan - Allopurinol 300mg daily - Colchicine 0.6mg prn for flares - RTC 6 months - Labs before visit: CBC, CMP, ESR, CRP, UA (2) Osteoarthritis of hands, bilateral: Code(s): M19.041 - Primary osteoarthritis, right hand; M19.042 - Primary osteoarthritis, left hand Category: Medical Qualifiers: Osteoarthritis type: primary Qualified Code(s): M19.041 - Primary osteoarthritis, right hand; M19.042 - Primary osteoarthritis, left hand Plan: #Hand OA Bilateral hand OA with 1st CMC involvement. Recommended topical diclofenac. Gabapentin refilled (3) Osteoarthritis of right knee: Code(s): M17.11 - Unilateral primary osteoarthritis, right knee Category: Medical Qualifiers: Osteoarthritis type: primary Qualified Code(s): M17.11 - Unilateral primary osteoarthritis, right knee Plan: #Knee OA Bilateral knee OA. Recommended topical diclofenac. Continue gabapentin. (4) Seropositive rheumatoid arthritis: Comment: Plaquenil: 06/2016-11/2019 Arava:08/2019-11/2019 Methotrexate: [id number] relief of symptoms Humira: August 2020-self discontinued due to fatigue Prednisone: 06/2014-12/2019 GI upset Enbrel: Considered but not started due to latex allergy Orencia: 05/2021- 07/2021 Full body itching, no improvement in symptoms Kevzara: 07/2021-December 2021. No synovitis seen in 2022 Code(s): M05.9 - Rheumatoid arthritis with rheumatoid factor, unspecified Category: Medical Plan: #?Inflammatory arthritis Patient had a previous diagnosis of seropositive rheumatoid arthritis based on positive CCP and polyarticular joint pain. She was on several regimen which did not improve her pain. The diagnosis was called into question and she may have had crystal disease related inflammatory arthritis. She is currently stable from that point. Plan - No further immunosuppression at this time. (5) Osteopenia: Comment: DEXA 02/2024: AP Spine -1.5, Left femur neck -0.7, Left femur total 0.2. FRAX 5.7/0.6 Code(s): M85.80 - Other specified disorders of bone density and structure, unspecified site Category: Medical Qualifiers: Osteopenia location: spine Qualified Code(s): M85.88 - Other specified disorders of bone density and structure, other site Plan: #Osteopenia Patient with osteopenia and low FRAX index Plan - Vit D supplementation - DEXA 02/2026 (6) Encounter for monitoring allopurinol therapy: Code(s): Z51.81 - Encounter for therapeutic drug level monitoring; Z79.899 - Other retirement (current) drug therapy Plan: #Long-term Current Use of Allopurinol Risks and benefits of allopurinol discussed with patient Benefits include decreased gout flares, remission of gout and reduction of tophi Risks include allopurinol hypersensitivity syndrome which is a severe cutaneous adverse reaction associated with allopurinol use particularly in patients who are HLA B*5801 positive, increased transaminases, GI upset including diarrhea, nausea and vomiting, and other dermatologic manifestations. Plan I spent 35 minutes reviewing the record and labs, seeing the patient, discussing the treatment plan and documenting in the medical record Orders: Orders Comprehensive Met. Panel 6 Months M1A.39X0 - Chronic gout due to renal impairment, multiple sites, without tophus (tophi) C Reactive Protein 6 Months M1A.39X0 - Chronic gout due to renal impairment, multiple sites, without tophus (tophi) Vitamin D 25-OH Total 6 Months M1A.39X0 - Chronic gout due to renal impairment, multiple sites, without tophus (tophi), Z79.899 - Other technician terminal and repeater (current) drug therapy Complete Blood Count Auto Diff 6 Months M1A.39X0 - Chronic gout due to renal impairment, multiple sites, without tophus (tophi) Uric Acid 6 Months M1A.39X0 - Chronic gout due to renal impairment, multiple sites, without tophus (tophi) Erythrocyte Sedimentation Rate 6 Months M1A.39X0 - Chronic gout due to renal impairment, multiple sites, without tophus (tophi) Medications: New diclofenac sodium 1% (Arthritis Pain (diclofenac)) 4 grams topical QID 100 grams 5RF M17.11 - Unilateral primary osteoarthritis, right knee, M19.041 - Primary osteoarthritis, right hand, M19.042 - Primary osteoarthritis, left hand Refilled gabapentin 300 mg PO TID 270 caps 2RF 90 days M79.7 - Fibromyalgia allopurinol 300 mg PO DAILY 90 tabs 1RF 90 days M1A.39X0 - Chronic gout due to renal impairment, multiple sites, without tophus (tophi) Coding Level of Care Code Est Pt Level 4 (66233) Complex EM visit Add On G2211 Diagnoses Chronic gout due to renal impairment of multiple sites without tophus M1A.39X0 Gout site: multiple sites Gout etiology: due to renal impairment Chronicity: chronic Presence of tophus: without tophus Primary osteoarthritis of both hands M19.041; M19.042 Osteoarthritis type: primary Primary osteoarthritis of right knee M17.11 Osteoarthritis type: primary Seropositive rheumatoid arthritis M05.9 Osteopenia of spine M85.88 Osteopenia location: spine Encounter for monitoring allopurinol therapy Z51.81; Z79.899
[2025-02-22 11:48] VITALS: BP 130/62; PULSE 79; O2SAT 98; BMI 32.0
--- OUTSIDE RECORDS SUMMARY | 2025-02-22 13:15 | XMS_ITS | Encounter Summary ---
Author Organization [facility] Address [address] [place] [address] Phone Care Team Providers Care Kiln Pusher Name Role Phone Lanny Roach Primary Care Provid er Encounter Details Date Type Department Care Team (Late Contact Info) Description 09/03/2023 Documentation Only [facility] [address] [place] [address] Mae Olsen [address] [place] [address] Social History Tobacco Use Types [...] [facility] [address] [place] [address] Tiara Barrientos MD [address] [place] [address] [place] [address] documented as of this encounter Visit Diagnoses Not on filedocumented in this encounter Care Teams Kiln Pusher Relationship Specialty Start Date End Date Lanny Roach [address] [place] [phone] PCP - General 03/10/24 documented as of this encounter
--- OUTSIDE RECORDS SUMMARY | 2025-02-22 13:15 | XMS_ITS | Encounter Summary ---
Author Organization [facility] Address [address] [place] [address] Phone Care Team Providers Care Manager Pet Name Role Phone Lanny Roach Primary Care Provid er Encounter Details Date Type Department Care Team (Late Contact Info) Description 03/29/2024 Documentation Only [facility] [address] [place] [address] Mae Olsen [address] [place] [address] Social History Tobacco Use Types [...] Visit [facility] [address] [place] [address] Tiara Barrientos MD [address] [place] [address] [place] [address] documented as of this encounter Visit Diagnoses Not on filedocumented in this encounter Care Teams Manager Pet Relationship Specialty Start Date End Date Lanny Roach [address] [place] [address] PCP - General 03/10/24 documented as of this encounter
--- OUTSIDE RECORDS SUMMARY | 2025-02-22 13:15 | XMS_ITS | Encounter Summary ---
Author Organization [facility] Address [address] [place] [address] Phone Care Team Providers Care Clerical Assigner Name Role Phone Lanny Roach Primary Care Provid er Encounter Details Date Type Department Care Team (Late Contact Info) Description 11/17/2024 Documentation Only [facility] [address] [place] [address] Mae Olsen [address] [place], [place] [...] Visit [facility] [address] [place] [address] Tiara Barrientos MD [address] [place] [address] [place] [address] documented as of this encounter Visit Diagnoses Not on filedocumented in this encounter Care Teams Clerical Assigner Relationship Specialty Start Date End Date Lanny Roach [address] [place] [id number] PCP - General 03/10/24 documented as of this encounter
--- OUTSIDE RECORDS SUMMARY | 2025-02-22 13:15 | XMS_ITS | Encounter Summary ---
Author Organization [facility] Address [address] [place] [address] Phone Care Team Providers Care Supervisor Wound Name Role Phone Lanny Roach Primary Care Provid er Encounter Details Date Type Department Care Team (Late Contact Info) Description 09/03/2023 Documentation Only [facility] [address] [place] [address] Mae Olsen [address] [place] [address] Social History Tobacco Use Types [...] [facility] [address] [place] [address] Tiara Barrientos MD [address] [place] [address] [place] [address] documented as of this encounter Visit Diagnoses Not on filedocumented in this encounter Care Teams Supervisor Wound Relationship Specialty Start Date End Date Lanny Roach [address] [place] [phone] PCP - General 03/10/24 documented as of this encounter
--- OUTSIDE RECORDS SUMMARY | 2025-02-22 13:15 | XMS_ITS | Encounter Summary ---
Author Organization [facility] Address [address] [place] [address] Phone Care Team Providers Care Song Plugger Name Role Phone Lanny Roach Primary Care Provid er Encounter Details Date Type Department Care Team (Late Contact Info) Description 09/03/2023 Documentation Only [facility] [address] [place] [address] Mae Olsen [address] [place] [address] Social History Tobacco Use Types [...] Visit [facility] [address] [place] [address] Tiara Barrientos MD [address] [place] [address] [place] [address] documented as of this encounter Visit Diagnoses Not on filedocumented in this encounter Care Teams Song Plugger Relationship Specialty Start Date End Date Lanny Roach [address] [place] [phone] PCP - General 03/10/24 documented as of this encounter
--- OUTSIDE RECORDS SUMMARY | 2025-02-22 13:15 | XMS_ITS | Encounter Summary ---
Author Organization [facility] Address [address] [place] [address] Phone Care Team Providers Care Community Marketing Coordinator Name Role Phone Lanny Roach Primary Care Provid er Encounter Details Date Type Department Care Team (Late Contact Info) Description 09/03/2023 Documentation Only [facility] [address] [place] [address] Mae Olsen [address] [place] [address] Social History Tobacco Use Types [...] Visit [facility] [address] [place] [address] Tiara Barrientos MD [address] [place] [address] [place] [address] documented as of this encounter Visit Diagnoses Not on filedocumented in this encounter Care Teams Community Marketing Coordinator Relationship Specialty Start Date End Date Lanny Roach [address] [place] [phone] PCP - General 03/10/24 documented as of this encounter
--- OUTSIDE RECORDS SUMMARY | 2025-02-22 13:15 | XMS_ITS | Encounter Summary ---
Author Organization [facility] Address [address] [place] [address] Phone Care Team Providers Care Rotary Envelope Machine Operator Name Role Phone Lanny Roach Primary Care Provid er Encounter Details Date Type Department Care Team (Late Contact Info) Description 09/03/2023 Documentation Only [facility] [address] [place] [address] Mae Olsen [address] [place] [address] Social History Tobacco Use Types [...] Visit [facility] [address] [place] [address] Tiara Barrientos MD [address] [place] [address] [place] [address] documented as of this encounter Visit Diagnoses Not on filedocumented in this encounter Care Teams Rotary Envelope Machine Operator Relationship Specialty Start Date End Date Lanny Roach [address] [place] [phone] PCP - General 03/10/24 documented as of this encounter
--- OUTSIDE RECORDS SUMMARY | 2025-02-22 13:15 | XMS_ITS | Encounter Summary ---
Author Organization [facility] Address [address] [place] [address] Phone Care Team Providers Care Private Pilot Name Role Phone Lanny Roach Primary Care Provid er Encounter Details Date Type Department Care Team (Late Contact Info) Description 09/03/2023 Documentation Only [facility] [address] [place] [address] Mae Olsen [address] [place] [address] Social History Tobacco Use Types [...] [facility] [address] [place] [address] Tiara Brarientos MD [address] [place] [address] [place] [address] documented as of this encounter Visit Diagnoses Not on filedocumented in this encounter Care Teams Private Pilot Relationship Specialty Start Date End Date Lanny Roach [address] [place] [phone] PCP - General 03/10/24 documented as of this encounter
--- OUTSIDE RECORDS SUMMARY | 2025-02-22 13:15 | XMS_ITS | Encounter Summary ---
Author Organization [facility] Address [address] [place] [address] Phone Care Team Providers Care Drapery Counselor Name Role Phone Lanny Roach Primary Care Provid er Encounter Details Date Type Department Care Team (Late Contact Info) Description 09/03/2023 Documentation Only [facility] [address] [place] [address] Mae Olsen [address] [place] [address] Social History Tobacco Use Types [...] [facility] [address] [place] [address] Tiara Barrientos MD [address] [place] [address] [place] [address] documented as of this encounter Visit Diagnoses Not on filedocumented in this encounter Care Teams Drapery Counselor Relationship Specialty Start Date End Date Lanny Roach [address] [place] [phone] PCP - General 03/10/24 documented as of this encounter
--- OUTSIDE RECORDS SUMMARY | 2025-02-22 13:15 | XMS_ITS | Encounter Summary ---
Author Organization [facility] Address [address] [place] [address] Phone Care Team Providers Care Getter Welder Name Role Phone Lanny Roach Primary Care Provid er Encounter Details Date Type Department Care Team (Late Contact Info) Description 09/03/2023 Documentation Only [facility] [address] [place] [address] Mae Olsen [address] [place] [address] Social History Tobacco Use Types [...] [facility] [address] [place] [address] Tiara Barrientos MD [address] [place] [address] [place] [address] documented as of this encounter Visit Diagnoses Not on filedocumented in this encounter Care Teams Getter Welder Relationship Specialty Start Date End Date Lanny Roach [address] [place] [address] PCP - General 03/10/24 documented as of this encounter
--- OUTSIDE RECORDS SUMMARY | 2025-02-22 13:15 | XMS_ITS | Encounter Summary ---
Author Organization [facility] Address [address] [place] [address] Phone Care Team Providers Care Downstairs Maid Name Role Phone Lanny Roach Primary Care Provid er Encounter Details Date Type Department Care Team (Late Contact Info) Description 09/03/2023 Documentation Only [facility] [address] [place] [address] Mae Olsen [address] [place] [address] Social History Tobacco Use Types [...] [facility] [address] [place] [address] Tiara Barrientos MD [address] [place] [address] [place] [address] documented as of this encounter Visit Diagnoses Not on filedocumented in this encounter Care Teams Downstairs Maid Relationship Specialty Start Date End Date Lanny Roach [address] [place] [phone] PCP - General 03/10/24 documented as of this encounter
--- OUTSIDE RECORDS SUMMARY | 2025-02-22 13:15 | XMS_ITS | Encounter Summary ---
Author Organization [employer] Address [address] [place] [address] 7t [place] [address] Care Team Providers Care Hall Supervisor Name Role Phone Lanny Ewing MD Primary Care Pro vider Reason for Visit * Reason Comments Med Refill Encounter Details Date Type Department Care Team ([facility] st Contact Info) Description 07/19/2023 Refill [facility] MEDICINE [address] [place] [address] Lanny Ewing MD [address] [place], [place] [phone] Social History Tobacco Use Types Packs/Day Years [...] as of this encounter Plan of Treatment Not on file documented as of this encounter Visit Diagnoses Not on filedocumented in this encounter Care Teams Hall Supervisor Relationship Specialty Start Date End Date Lanny Ewing MD [address] [place] [phone] PCP - General Internal Medicine 03/03/23 documented as of this encounter
--- OUTSIDE RECORDS SUMMARY | 2025-02-22 13:15 | XMS_ITS | Encounter Summary ---
Author Organization [facility] Address [address] [place] [address] Phone Care Team Providers Care Self Sealing Fuel Tank Repairer Name Role Phone Lanny Roach Primary Care Provid er Encounter Details Date Type Department Care Team (Late Contact Info) Description 09/03/2023 Documentation Only [facility] [address] [place] [address] Mae Olsen [address] [place] [address] Social History Tobacco Use Types [...] [facility] [address] [place] [address] Tiara Barrientos MD [address] [place] [address] [place] [address] documented as of this encounter Visit Diagnoses Not on filedocumented in this encounter Care Teams Self Sealing Fuel Tank Repairer Relationship Specialty Start Date End Date Lanny Roach [address] [place] [phone] PCP - General 03/10/24 documented as of this encounter
--- OUTSIDE RECORDS SUMMARY | 2025-02-22 13:15 | XMS_ITS | Encounter Summary ---
Author Organization [facility] Address [address] [place] [address] Phone Care Team Providers Care Slab Polisher Name Role Phone Lanny Roach Primary Care Provid er Encounter Details Date Type Department Care Team (Late Contact Info) Description 09/03/2023 Documentation Only [facility] [address] [place] [address] Mae Olsen [address] [place] [address] Social History Tobacco Use Types [...] Visit [facility] [address] [place] [address] Tiara Barrientos MD [address] [place] [address] [place] [address] documented as of this encounter Visit Diagnoses Not on filedocumented in this encounter Care Teams Slab Polisher Relationship Specialty Start Date End Date Lanny Roach [address] [place] [phone] PCP - General 03/10/24 documented as of this encounter
--- OUTSIDE RECORDS SUMMARY | 2025-02-22 13:15 | XMS_ITS | Encounter Summary ---
Author Organization [employer] Address [address] [place] [address] 7t [place] [address] Care Team Providers Care Blanket Binder Name Role Phone Lanny Ewing MD Primary Care Pro vider Reason for Referral * Consultation (Routine) - Closed Specialty Diagnoses / Procedures Referred By Contmaggy dickson Referred To Contact Pharmacy Diagnoses Essential hypertension Gertrudis Holder MD [address] [place] [address] Phone: tel: fax: Referral ID Status Reason Start Date Expiration Date V isits Requested Visits Authorized [id number] Closed Continuity of Care 09/22/2024 09/22/2025 6 6 Encounter Details Date Type Department Care Team ([facility] st Contact Info) Description 09/20/2024 Orders Only [facility] MEDICINE [address] [place], [place] [phone] Gertrudis Holder MD [address] [place], [place] [phone] Essential hypertension (Primary Dx) Social History Tobacco [...] as of this encounter Plan of Treatment Scheduled Referrals Name Type Priority Associated Diagnoses Orde r Schedule Referral to Pharmacy MTM Outpatient Referral Routine Essential hypertension Ordered: 09/22/2024 documented as of this encounter Goals Goal Patient Goal Type Associated Problems Recent Progress Patient-Stated? Author Blood Pressure < 140/90 Blood Pressure 110/66(2024 2:59 PM EDT) No Jessica Evans Hemoglobin A1c < 7 Result Component 6.5( 3:12 PM EDT) No Jessica Evans documented as of this encounter Visit Diagnoses Diagnosis Essential hypertension- Primary Unspecified essential hypertension documented in this encounter Additional Health Concerns Assessment Noted Time PHQ-9 Depression Total Score: 0 09/17/19 25 10:40 AM EDT documented as of this encounter Care Teams Blanket Binder Relationship Specialty Start Date End Date Lanny Ewing MD [address] [place] [phone] PCP - General Internal Medicine 03/03/23 documented as of this encounter
--- OUTSIDE RECORDS SUMMARY | 2025-02-22 13:15 | XMS_ITS | Encounter Summary ---
Author Organization [facility] Address [address] [place] [address] Phone Care Team Providers Care Ux Lead Name Role Phone Lanny Roach Primary Care Provid er Encounter Details Date Type Department Care Team (Late Contact Info) Description 09/03/2023 Documentation Only [facility] [address] [place] [address] Mae Olsen [address] [place] [address] Social History Tobacco Use Types [...] [facility] [address] [place] [address] Tiara Barrientos MD [address] [place] [address] [place] [address] documented as of this encounter Visit Diagnoses Not on filedocumented in this encounter Care Teams Ux Lead Relationship Specialty Start Date End Date Lanny Roach [address] [place] [phone] PCP - General 03/10/24 documented as of this encounter
--- OUTSIDE RECORDS SUMMARY | 2025-02-22 13:15 | XMS_ITS | Encounter Summary ---
Author Organization [facility] Address [address] [place] [address] Phone Care Team Providers Care Paper Machine Supervisor Name Role Phone Lanny Roach Primary Care Provid er Encounter Details Date Type Department Care Team (Late Contact Info) Description 09/03/2023 Documentation Only [facility] [address] [place] [address] Mae Olsen [address] [place] [address] Social History Tobacco Use Types [...] [facility] [address] [place] [address] Tiara Barrientos MD [address] [place] [address] [place] [address] documented as of this encounter Visit Diagnoses Not on filedocumented in this encounter Care Teams Paper Machine Supervisor Relationship Specialty Start Date End Date Lanny Roach [address] [place] [phone] PCP - General 03/10/24 documented as of this encounter
--- OUTSIDE RECORDS SUMMARY | 2025-02-22 13:15 | XMS_ITS | Encounter Summary ---
Author Organization [facility] Address [address] [place] [address] Phone Care Team Providers Care Blood Bank Manager Name Role Phone Lanny Roach Primary Care Provid er Encounter Details Date Type Department Care Team (Late Contact Info) Description 03/22/2024 Documentation Only [facility] [address] [place] [address] Mae Olsen [address] [place] [address] Social History Tobacco Use Types [...] [facility] [address] [place] [address] Tiara Barrientos MD [address] [place] [address] [place] [address] documented as of this encounter Visit Diagnoses Not on filedocumented in this encounter Care Teams Blood Bank Manager Relationship Specialty Start Date End Date Lanny Roach [address] [place] [address] PCP - General 03/10/24 documented as of this encounter
--- OUTSIDE RECORDS SUMMARY | 2025-02-22 13:15 | XMS_ITS | Encounter Summary ---
Author Organization [facility] Address [address] [place] [address] Phone Care Team Providers Care Supervisor Ordnance Truck Installation Name Role Phone Lanny Roach Primary Care Provid er Encounter Details Date Type Department Care Team (Late Contact Info) Description 09/03/2023 Documentation Only [facility] [address] [place] [address] Mae Olsen [address] [place] [address] Social History Tobacco Use Types [...] [facility] [address] [place] [address] Tiara Barrientos MD [address] [place] [address] [place] [address] documented as of this encounter Visit Diagnoses Not on filedocumented in this encounter Care Teams Supervisor Ordnance Truck Installation Relationship Specialty Start Date End Date Lanny Roach [address] [place] [phone] PCP - General 03/10/24 documented as of this encounter
--- OUTSIDE RECORDS SUMMARY | 2025-02-22 13:15 | XMS_ITS | Encounter Summary ---
Author Organization [facility] Address [address] [place] [address] Phone Care Team Providers Care Customer Support Professional Name Role Phone Lanny Roach Primary Care Provid er Encounter Details Date Type Department Care Team (Late Contact Info) Description 09/03/2023 Documentation Only [facility] [address] [place] [address] Mae Olsen [address] [place] [address] Social History Tobacco Use Types [...] [facility] [address] [place] [address] Tiara Barrientos MD [address] [place] [address] [place] [address] documented as of this encounter Visit Diagnoses Not on filedocumented in this encounter Care Teams Customer Support Professional Relationship Specialty Start Date End Date Lanny Roach [address] [place] [phone] PCP - General 03/10/24 documented as of this encounter
--- OUTSIDE RECORDS SUMMARY | 2025-02-22 13:15 | XMS_ITS | Encounter Summary ---
Author Organization [facility] Address [address] [facility] [address] [place] [address] Phone Care Team Providers Care Copyright Manager Name Role Phone Lanny Roach Primary Care Provid er Encounter Details Date Type Department Care Team (Late st Contact Info) Description 10/07/2022 Documentation Only [facility] [address] [place] [address] [place], [place] [address] [place] [address] Social History Tobacco Use [...] Visit [facility] [address] [place] [address] Tiara Barrientos MD [address] [place] [address] [place] [address] documented as of this encounter Visit Diagnoses Not on filedocumented in this encounter Care Teams Copyright Manager Relationship Specialty Start Date End Date Lanny Roach [address] [place] [address] [phone] PCP - General 03/10/24 documented as of this encounter
--- OUTSIDE RECORDS SUMMARY | 2025-02-22 13:15 | XMS_ITS | Encounter Summary ---
Author Organization [employer] Address [address] [place] [address] 7 [place] [address] Care Team Providers Care Medical Fee Clerk Name Role Phone Lanny Ewing MD Primary Care Pro vider Reason for Visit * Reason Onset Date Comments Hospital Follow-up 07/20/2023 Encounter Details Date Type Department Care Team ([facility] st Contact Info) Description 07/20/2023 Telephone [facility] MEDICINE [address] [place], [place] [phone] Lanny Ewing MD 230 [place], [place] [phone] Hospital Follow-up Social History Tobacco Use Types [...] from pt requesting a HDF appt. Hospital: [facility] Date of admission: 06/14/2023 Discharge date: 06/17/2023 Diagnosed: Trouble Breathing/Asthma documented in this encounter Plan of Treatment Not on file documented as of this encounter Visit Diagnoses Not on filedocumented in this encounter Care Teams Medical Fee Clerk Relationship Specialty Start Date End Date Lanny Ewing MD [address] [place] [phone] PCP - General Internal Medicine 03/03/23 documented as of this encounter
--- OUTSIDE RECORDS SUMMARY | 2025-02-22 13:15 | XMS_ITS | Encounter Summary ---
Author Organization [facility] Address [address] [place] [address] Phone Care Team Providers Care High Density Press Laborer Name Role Phone Lanny Roach Primary Care Provid er Encounter Details Date Type Department Care Team (Late Contact Info) Description 09/03/2023 Documentation Only [facility] [address] [place] [address] Mae Olsen [address] [place] [address] Social History Tobacco Use Types [...] [facility] [address] [place] [address] Tiara Barrientos MD [address] [place] [address] [place] [address] documented as of this encounter Visit Diagnoses Not on filedocumented in this encounter Care Teams High Density Press Laborer Relationship Specialty Start Date End Date Lanny Roach [address] [place] [phone] PCP - General 03/10/24 documented as of this encounter
--- OUTSIDE RECORDS SUMMARY | 2025-02-22 13:15 | XMS_ITS | Encounter Summary ---
Author Organization [employer] Address [address] [place] [address] 7t [place] [address] Care Team Providers Care Cottage Master Name Role Phone Lanny Ewing MD Primary Care Pro vider Encounter Details Date Type Department Care Team (Late st Contact Info) Description 10/26/2023 Orders Only [facility] MEDICINE [address] [place] [address] Provider, MD Sherly Social History Tobacco Use [...] on file documented as of this encounter Goals Goal [...] documented as of this encounter Care Teams Cottage Master Relationship Specialty Start Date End Date Lanny Ewing MD [address] [place] [phone] PCP - General Internal Medicine 03/03/23 documented as of this encounter
--- OUTSIDE RECORDS SUMMARY | 2025-02-22 13:15 | XMS_ITS | Encounter Summary ---
Author Organization [employer] Address [address] [place] [address] 7 [place] [address] Care Team Providers Care Drag Down Name Role Phone Lanny Ewing MD Primary Care Pro vider Reason for Visit * Reason Comments Med Refill Encounter Details Date Type Department Care Team ([facility] st Contact Info) Description 12/23/2023 Refill [facility] MEDICINE [address] [place] [address] Lanny Ewing MD 230 [place], [place] [phone] Social History Tobacco Use Types Packs/Day Years [...] documented as of this encounter Care Teams Drag Down Relationship Specialty Start Date End Date Lanny Ewing MD [address] [place] [phone] PCP - General Internal Medicine 03/03/23 documented as of this encounter
--- OUTSIDE RECORDS SUMMARY | 2025-02-22 13:15 | XMS_ITS | Encounter Summary ---
Author Organization [employer] Address [address] [place] [address] 7t [place] [address] Care Team Providers Care Tin Whiz Machine Operator Name Role Phone Lanny Ewing MD Primary Care Pro vider Reason for Visit * Reason Comments Med Refill Encounter Details Date Type Department Care Team ([facility] st Contact Info) Description 12/30/2024 Refill [facility] MEDICINE [address] [place] [address] Lanny Ewing MD 230 [place], [place] [phone] Social History Tobacco Use Types Packs/Day Years [...] documented as of this encounter Care Teams Tin Whiz Machine Operator Relationship Specialty Start Date End Date Lanny Ewing MD [address] [place] [address] [phone] PCP - General Internal Medicine 03/03/23 documented as of this encounter
--- OUTSIDE RECORDS SUMMARY | 2025-02-22 13:15 | XMS_ITS | Encounter Summary ---
Author Organization [facility] Address [address] [place] [address] Phone Care Team Providers Care Regional Education Coordinator Name Role Phone Lanny Roach Primary Care Provid er Encounter Details Date Type Department Care Team (Late Contact Info) Description 09/03/2023 Documentation Only [facility] [address] [place] [address] Mae Olsen [address] [place] [address] Social History Tobacco Use Types [...] [facility] [address] [place] [address] Tiara Barrienots MD [address] [place] [address] [place] [address] documented as of this encounter Visit Diagnoses Not on filedocumented in this encounter Care Teams Regional Education Coordinator Relationship Specialty Start Date End Date Lanny Roach [address] [place] [phone] PCP - General 03/10/24 documented as of this encounter
--- OUTSIDE RECORDS SUMMARY | 2025-02-22 13:15 | XMS_ITS | Encounter Summary ---
Author Organization [employer] Address [address] [place] [address] 7t [place] [address] Care Team Providers Care Coronary Clinical Specialist Name Role Phone Lanny Ewing MD Primary Care Pro vider Reason for Visit * Reason Comments Med Refill Encounter Details Date Type Department Care Team ([facility] st Contact Info) Description 09/12/2024 Refill [facility] [address] [place], [place] [phone] Lanny Ewing MD [address] [place] [address] Social History Tobacco Use Types Packs/Day Years [...] documented as of this encounter Care Teams Coronary Clinical Specialist Relationship Specialty Start Date End Date Lanny Ewing MD [address] [place] [phone] PCP - General Internal Medicine 03/03/23 documented as of this encounter
--- OUTSIDE RECORDS SUMMARY | 2025-02-22 13:15 | XMS_ITS | Encounter Summary ---
Author Organization [facility] Address [address] [place] [address] Phone Care Team Providers Care Orthotic Finish Grinding Technician Name Role Phone Lanny Roach Primary Care Provid er Encounter Details Date Type Department Care Team (Late Contact Info) Description 11/17/2024 Documentation Only [facility] [address] [place] [address] Mae Olsen [address] [place] [address] Social History Tobacco Use Types [...] [facility] [address] [place] [address] Tiara Barrientos MD [address] [place] [address] [place] [address] documented as of this encounter Visit Diagnoses Not on filedocumented in this encounter Care Teams Orthotic Finish Grinding Technician Relationship Specialty Start Date End Date Lanny Raoch [address] [place] [phone] PCP - General 03/10/24 documented as of this encounter
--- OUTSIDE RECORDS SUMMARY | 2025-02-22 13:15 | XMS_ITS | Encounter Summary ---
Author Organization [facility] Address [address] [place] [address] Phone Care Team Providers Care Die Casting Machine Operator Name Role Phone Lanny Roach Primary Care Provid er Encounter Details Date Type Department Care Team (Late Contact Info) Description 03/29/2024 Documentation Only [facility] [address] [place] [address] Mae Olsen [address] [place], [...] [facility] [address] [place] [address] Tiara Barrientos MD [address] [place] [address] [place] [address] documented as of this encounter Visit Diagnoses Not on filedocumented in this encounter Care Teams Die Casting Machine Operator Relationship Specialty Start Date End Date Lanny Roach 230 [place] [address] PCP - General 03/10/24 documented as of this encounter
--- OUTSIDE RECORDS SUMMARY | 2025-02-22 13:15 | XMS_ITS | Encounter Summary ---
Author Organization [facility] Address [address] [place] [address] Phone Care Team Providers Care Travel Specialist Name Role Phone Lanny Roach Primary Care Provid er Encounter Details Date Type Department Care Team (Late Contact Info) Description 09/03/2023 Documentation Only [facility] [address] [place] [address] Mae Olsen [address] [place] [address] Social History Tobacco Use Types [...] [facility] [address] [place] [address] Tiara Barrientos MD [address] [place] [address] [place] [address] documented as of this encounter Visit Diagnoses Not on filedocumented in this encounter Care Teams Travel Specialist Relationship Specialty Start Date End Date Lanny Roach [address] [place] [phone] PCP - General 03/10/24 documented as of this encounter
--- OUTSIDE RECORDS SUMMARY | 2025-02-22 13:15 | XMS_ITS | Encounter Summary ---
Author Organization [facility] Address [address] [place] [address] Phone Care Team Providers Care Supervisor [employer] Name Role Phone Lanny Roach Primary Care Provid er Encounter Details Date Type Department Care Team (Late Contact Info) Description 09/03/2023 Documentation Only [facility] [address] [place] [address] Mae Olsen [address] [place] [address] Social History Tobacco Use Types [...] [facility] [address] [place] [address] Tiara Barrientos MD [address] [place] [address] [place] [address] documented as of this encounter Visit Diagnoses Not on filedocumented in this encounter Care Teams Supervisor [employer] Relationship Specialty Start Date End Date Lanny Roach [address] [place] [phone] PCP - General 03/10/24 documented as of this encounter
--- OUTSIDE RECORDS SUMMARY | 2025-02-22 13:15 | XMS_ITS | Encounter Summary ---
Author Organization [facility] Address [address] [place] [address] Phone Care Team Providers Care Elevator Erector Name Role Phone Lanny Roach Primary Care Provid er Encounter Details Date Type Department Care Team (Late Contact Info) Description 11/17/2024 Documentation Only [facility] [address] [place] [address] Mae Olsen [address] [place] [address] Social History Tobacco Use Types [...] [facility] [address] [place] [address] Tiara Barrientos MD [address] [place] [address] [place] [address] documented as of this encounter Visit Diagnoses Not on filedocumented in this encounter Care Teams Elevator Erector Relationship Specialty Start Date End Date Lanny Roach [address] [place] [phone] PCP - General 03/10/24 documented as of this encounter
--- OUTSIDE RECORDS SUMMARY | 2025-02-22 13:15 | XMS_ITS | Encounter Summary ---
Author Organization [facility] Address [address] [place] [address] Phone Care Team Providers Care Cheese Tester Name Role Phone Lanny Roach Primary Care Provid er Encounter Details Date Type Department Care Team (Late Contact Info) Description 09/03/2023 Documentation Only [facility] [address] [place] [address] Mae Olsen [address] [place], [place] [...] Visit [facility] [address] [place] [address] Tiara Barrientos MD [address] [place] [address] [place] [address] documented as of this encounter Visit Diagnoses Not on filedocumented in this encounter Care Teams Cheese Tester Relationship Specialty Start Date End Date Lanny Roach [address] [place] [phone] PCP - General 03/10/24 documented as of this encounter
--- OUTSIDE RECORDS SUMMARY | 2025-02-22 13:15 | XMS_ITS | Encounter Summary ---
Author Organization [facility] Address [address] [place] [address] Phone Care Team Providers Care Guest Relations Representative Name Role Phone Lanny Roach Primary Care Provid er Encounter Details Date Type Department Care Team (Late Contact Info) Description 09/03/2023 Documentation Only [facility] [address] [place] [address] Mae Olsen [address] [place] [address] Social History Tobacco Use [...] [facility] [address] [place] [address] Tiara Barrientos MD [address] [place] [address] [place] [address] documented as of this encounter Visit Diagnoses Not on filedocumented in this encounter Care Teams Guest Relations Representative Relationship Specialty Start Date End Date Lanny Roach [address] [place] [phone] PCP - General 03/10/24 documented as of this encounter
--- OUTSIDE RECORDS SUMMARY | 2025-02-22 13:15 | XMS_ITS | Encounter Summary ---
Author Organization [facility] Address [address] [place] [address] Phone Care Team Providers Care Java Developer Analyst Name Role Phone Lanny Roach Primary Care Provid er Encounter Details Date Type Department Care Team (Late Contact Info) Description 09/03/2023 Documentation Only [facility] [address] [place] [address] Mae Olsen [address] [place] [address] Social History Tobacco Use Types [...] [facility] [address] [place] [address] Tiara Barrientos MD [address] [place] [address] [place] [address] documented as of this encounter Visit Diagnoses Not on filedocumented in this encounter Care Teams Java Developer Analyst Relationship Specialty Start Date End Date Lanny Roach [address] [place] [phone] PCP - General 03/10/24 documented as of this encounter
--- OUTSIDE RECORDS SUMMARY | 2025-02-22 13:15 | XMS_ITS | Encounter Summary ---
Author Organization [employer] [facility] Address [address] [place] [address] [address] [place] [address] Care Team Providers Care Back Closer Name Role Phone Adenike Souza Primary Care Provider Lanny Whitaker MD Primary Care Pro vider Reason for Visit * Reason Comments Med Refill Encounter Details Date Type Department Care Team (Late st Contact Info) Description 01/02/2023 Refill [facility] [address] [place], [place] [phone] Adenike Souza FNP Social History Tobacco Use [...] on filedocumented in this encounter Care Teams Back Closer Relationship Specialty Start Date End Date Adenike Souza FNP PCP - General Family Medicine 01/15/22 03/02/23 Lanny Ewing MD [address] [place], [place] [phone] PCP - General Internal Medicine 03/03/23 documented as of this encounter
--- OUTSIDE RECORDS SUMMARY | 2025-02-22 13:16 | XMS_ITS | Clinical Summary ---
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 Name Role Phone Lanny Roach Primary Care [...] Date Type Department Care Team Description 01/05/2025 2:45 PM EDT Office Visit [facility] [address] [place] [address] Gabino Donnelly MD Stage 3b chronic kidney disease (HCC) (Primary Dx) 01/05/2025 Documentation Only [facility] [address] [place] [address] Mae Olsen from Last 3 Months Immunizations [...] Visit [facility] [place], [address] [address] Tiara Barrientos MD [address] [phone] Health Maintenance Due Date Last Done Comments Breast Cancer Screening 1950 Colorectal Cancer Screening: Annual FOBT 2001 Colorectal Cancer Screening: Colonoscopy 2001 Colorectal Cancer Screening: Sigmoidoscopy 2001 Diabetes: Ophthalmology Exam 12/02/2019 Diabetes: Pedal Pulse Checked 12/02/2019 Diabetes: Sensory Foot Exam 12/02/2019 Diabetes: Visual Foot Exam 12/02/2019 Influenza Vaccine (#1) 2025 , 03/30/2023, 05/23/2021, Additional history exists Diabetes: Hemoglobin [...] exists Insurance Medicare Medicaid [place] Care Teams Loader [employer] Dies Relationship Specialty Start Date End Date Lanny Roach [address] [place] [phone] PCP - General 03/10/24
--- OUTSIDE RECORDS SUMMARY | 2025-02-22 13:16 | XMS_ITS | Clinical Summary ---
Author Organization [facility] Address [address] [place] [address] Phone Care Team Providers Care Vp Director Of Creative Strategy Name Role Phone Lanny Ewing MD Primary [...] 02/22/2024 Invasive ductal carcinoma of right breast ([facility], [facility] V28) 02/22/2024 Microscopic hematuria 02/22/2024 Moderate persistent asthma with (acute) exacerba tion 02/22/2024 Obesity 02/22/2024 Osteoarthritis of elbow 02/22/2024 Osteopenia 02/22/2024 Proteinuria 02/22/2024 Recurrent major depressive episodes, mild ([facility] V24) 02/22/2024 Seropositive rheumatoid arth ritis ([facility], [facility] V28) 02/22/2024 Stage 3 chronic kidney disease ([facility] V[facility], [facility] V28) 02/22/2024 Type 2 diabetes mellitus wit h stage 3 chronic kidney disease, without long-term current use of insulin ([facility], [facility] V28) 02/22/2024 Social History Tobacco Use Types [...] 01/20/2024 Social Influencers of Health Screening 01/20/2024 Diabetes: Annual Urine Albumin-Creatinine Ratio (uACR) 03/08/2024 Hypertension/CHF/CAD Annual BMP Blood Test 03/08/2024 Depression Screening 05/25/2024 Diabetes: Blood Sugar Control Test (HGBA1C) 10/02/2024 04/04/2024 DTaP,Tdap,and Td Vaccines (3 - Td or Tdap) 10/25/2024 10/25/2014, 01/11/2003 COVID-19 Vaccine ( season) 2025 09/11/2023, 11/30/2021, 03/22/2021, Additional history exists Influenza Vaccine (#1) 2025 , 03/30/2023, 05/23/2021, [...] patient's age to complete this topic Insurance * Guarantor: Mora Manrique Account Type Relation to Patient Date of Phone Billing Address Personal/Family Self [address] [place] [phone] MEDICARE MEDICAID - [place] Care Teams Vp Director Of Creative Strategy Relationship Specialty Start Date End Date Lanny Ewing MD [address] [phone] PCP - General 10/23/23
--- OUTSIDE RECORDS SUMMARY | 2025-02-22 13:16 | XMS_ITS | Clinical Summary ---
Author Organization [employer] Address [address] [place] [address] [address] [place] [address] Care Team Providers Care Blanket Winder Operator Name Role Phone Lanny Ewing MD [...] disease, without long-term current use of insulin (HCC) USE TO TEST BLOOD SUGAR TWICE A DAY 1 kit 03/01/20 24 Active Calcium Carb-Cholecalc iferol (Calcium 600+D) 600-20 MG-MCG tablet Take 1 tablet by mouth at noon and 1 tablet in the evening. 180 tablet 1 04/01/20 24 2024 Active glucose blood (OneTouch Verio) test stripIndicatio ns:Type 2 diabetes mellitus with stage 3b chronic kidney disease, without long-term current use of insulin ([facility]) 1 each by Other route Once per day. 100 each 04/25/20 24 Active Lancets 33G miscIndication s:Type 2 diabetes mellitus with stage 3b chronic kidney disease, without long-term current use of insulin ([facility]) 1 each Once per day. 100 each [...] at bedtime. 90 tablet 09/28/19 25 Active ferrous gluconate [...] disease, without long-term current use of insulin ([facility]) Inject 0.75 mL (2 mg) under the skin 1 (one) time per week. 3 mL 5 09/28/19 25 Active albuterol (Ventolin HFA) 108 (90 Base) MCG/ACT inhaler INHALE 2 PUFFS BY MOUTH EVERY 6 HOURS NEEDED 18 g 09/28/19 25 Active Anoro Ellipta 62.5-25 MCG/ACT aerosol powder INHALE 1 PUFF BY MOUTH EVERY DAY AT THE SAME TIME RINSE MOUTH AFTER USING IN THE MORNING RINSE MOUTH AFTER USING. 60 each 10/14/19 Active Azelastine HCl 137 MCG/SPRAY solution SPRAY 1 SPRAY IN EACH NOSTRIL TWICE DAILY DIRECTED 30 mL 10/14/19 Active lidocaine-pril ocaine (Emla) 2.5-2.5 % cream Apply topically if needed each day for mild pain. 5 g 1 11/24/19 Active citalopram (CeleXA) 20 MG tablet TAKE 1 TABLET BY MOUTH EVERY MORNING 90 tablet 1 01/14/20 25 Active montelukast (Singulair) 10 MG tabletIndicati ons:Seasonal allergic rhinitis, unspecified trigger TAKE 1 TABLET BY MOUTH AT BEDTIME 90 tablet 1 01/14/20 25 Active lisinopril 5 MG tablet TAKE 1 TABLET BY MOUTH EVERY MORNING 90 tablet 02/16/20 25 Active Farxiga 10 MGIndications: Type 2 diabetes mellitus with stage 3b chronic kidney disease, without long-term current use of insulin (HCC) TAKE 1 TABLET BY MOUTH EVERY MORNING 90 tablet 02/16/20 25 Active loratadine (Claritin) 10 MG tabletIndicati ons:Seasonal allergic rhinitis, unspecified trigger TAKE 1 TABLET BY MOUTH EVERY MORNING 90 tablet 02/16/20 25 Active dapagliflozin (Farxiga) 10 MGIndications: Type 2 diabetes mellitus with stage 3b chronic kidney disease, without long-term current use of insulin (HCC) Take 1 tablet (10 mg) by mouth in the morning. 90 tablet 09/28/19 25 2024 Discontinued loratadine (Claritin) 10 MG tabletIndicati ons:Seasonal allergic rhinitis, unspecified trigger TAKE 1 TABLET BY MOUTH EVERY MORNING 90 tablet 09/28/19 25 2024 Discontinued(R eorder (will not trigger notification to Pharmacy)) lisinopril 5 MG tablet Take 1 tablet (5 mg) by mouth Once per day. 90 tablet 11/24/19 25 2024 Discontinued Active Problems Problem Noted Date Diagnosed Date Anxiety disorder, unspecified 01/27/2025 Abnormal TSH 11/24/2024 Poor memory 11/24/2024 Abnormal EKG 11/24/2024 Lumbalgia 09/16/2024 Health care maintenance 09/12/2023 History of tobacco use 09/12/2023 History of anemia 09/12/2023 Dermatitis 09/12/2023 Invasive ductal carcinoma of right breast (CMS/H CC) 09/11/2023 COPD (chronic obstructive pulmonary disease) 12/2023 Moderate [...] Carpal tunnel syndrome 01/28/2022 Seropositive rheumatoid arthritis ([facility]) 02/22 Overview (11/23/2022): Sees rheumatology for back pain. Next appt 11/07/22 Assessment & Plan (12/18/2022 11:10 PM EDT): Care managed by specialist F/U PRN Assessment & Plan (11/23/2022 11:51 PM EDT): Encouraged pt to notify Rheum of her L shoulder pain and back pain Proteinuria 12/26/2020 Microscopic hematuria 12/02/2019 Stage 3 chronic kidney disease ([facility]) 020 Chronic gouty arthritis 11/04/2018 Overview (07/24/2022): Has Allopurinol and Cochicine at home. Uses PRN Essential hypertension 08/19/2018 Overview (11/23/2022): Lisinopril dose reduction recently since her Potassium was elevated. Sales Training Representative informed her that her potassium level was [...] 2014 Osteopenia 12/28/2014 Hypertensive retinopathy 01/04/2014 Encounters * This document contains information received from the source organization and may not represent a complete record from that organization. Date Type Department Care Team Description 02/15/2025 Refill [facility] [address] [place] [address] Lanny Ewing MD Seasonal allergic rhinitis, unspecified trigger 02/14/2025 Refill [facility] [address] [place] [address] Lanny Ewing MD Type 2 diabetes mellitus with stage 3b chronic kidney disease, without long-term current use of insulin (CMS/HCC) 01/26/2025 2:15 PM EDT Office Visit [facility] [address] [place] [address] Lanny Ewing MD Rosacea (Primary Dx); Type 2 diabetes mellitus with stage 3b chronic kidney disease, without long-term current use of insulin (CMS/HCC); Essential hypertension; Obesity (BMI 30-39.9); Anxiety disorder, unspecified type; Recurrent major depressive episodes, mild (CMS/HCC); History of tobacco use; Insomnia, unspecified type 01/26/2025 Travel 01/20/2025 Orders Only GENERIC EXTERNAL DATA DEPARTMENT Provider, Generic External Data 01/19/2025 Results Follow-Up [facility] [address] [place] [address] Lanny Ewing MD XR Lumbar Spine 2-3 Views, Albumin, Random Urine W/Creatinine 01/13/2025 Refill [facility] [address] [place], [place] [phone] Lanny Ewing MD Seasonal allergic rhinitis, unspecified trigger 01/13/2025 Refill [facility] [address] [place], [place] [phone] Yuki Wang MD Seasonal allergic rhinitis, unspecified trigger 12/30/2024 Refill [facility] [address] [place] [address] Lanny Ewing MD 11/24/2024 Telephone [facility] [address] [place] [phone] Lanny Ewing MD Prior Authorization 11/24/[address] [address] Lanny Ewing MD 11/23/2024 2:00 PM EDT Office Visit [facility] [address] [place] [phone] Lanny Ewing MD Low back pain, unspecified back pain laterality, unspecified chronicity, unspecified whether sciatica present (Primary Dx); Essential hypertension; Abnormal thyroid function test; Abnormal EKG; Obesity (BMI 30-39.9); Type 2 diabetes mellitus with stage 3b chronic kidney disease, without long-term current use of insulin ([facility]); Health care maintenance; Recurrent major depressive episodes, mild (CMS/[facility]); Dermatitis; Insomnia, unspecified type; Abnormal TSH; Poor memory 11/23/2024 Telephone [facility] [address] [place] [phone] Lanny Ewing MD Med Refill 11/23/2024 Travel 11/22/[address] [address] Lanny Ewing MD chart prep from Last 3 Months Immunizations Immunization Administration Dates Next Due Hep B, adult 01/18/2018,08/11/2017,07/14/2017 Influenza injectable quadriv alent preservative free 03/30/2023,05/23/2021,02/23/2018 Influenza, High Dose Seasona l, Preservative Free 04/01/2024,04/11/2019 Influenza, IIV3, injectable 02/19/2007 Influenza, Split (incl. [place] antigen) 02/08/2013 Influenza, seasonal, injecta ble, preservative free 02/28/2014 Pfizer Covid-19 Vaccine 12+ 09/19/2024, 4,03/22/2021 Pneumococcal Conjugate PCV 13 07/18/2021 Pneumococcal Conjugate [...] Sign Reading Time Taken Comments Blood Pressure 110/66 01/26/2025 2:59 PM EDT Pulse 68 01/26/2025 2:59 PM EDT Temperature 36.2 C (97.1 F) 01/26/2025 2:59 PM EDT Respiratory Rate 20 01/26/2025 2:59 PM EDT Oxygen Saturation 99% 11/23/2024 2:00 PM EDT Inhaled Oxygen Concentration - - Weight 85.5 kg (188 lb 6.4 oz) 01/26/2025 2:59 P M EDT Height 161.9 cm (5' 3.75 ) 01/26/2025 2:59 PM ED T Body Mass Index 32.59 01/26/2025 2:59 PM EDT Plan of Treatment Health Maintenance Due Date Last Done Comments CT Colonography 1950 FIT DNA/Cologuard 1950 FIT 1950 FOBT 1950 Sigmoidoscopy 1950 Eye Exam 1962 Diabetes: Foot Exam 12/11/2023 12/10/2022, 3 Influenza Vaccine (#1) 2025 , 03/30/2023, 05/23/2021, Additional history exists COVID-19 Vaccine ( season) 2025 09/19/2024, 09/11/2023, 11/30/2021, Additional history exists Diabetes: Hemoglobin A1C 04/27/20252 025, 11/18/2024, 09/16/2024, Additional history exists Diagnostic Breast Imaging 06/28/20252024, 03/24/2024, 06/16/2022 Mammogram 06/28/2025 06/28/2024, 0 08/2024, 03/24/2024, Additional history exists SDOH Screening 09/08/2025 09/08/2024 Alcohol/Substance Use Screening 09/16/2025 09/16/2024 Depression Screening 09/16/2025 09/16/2024, 09/17/19 25 Lipid Panel 11/18/2025 11/18/2024, 03/25, 10/13/2023, Additional [...] 140/90 Blood Pressure 110/66(2024 2:59 PM EDT) Jessica Peter Hemoglobin A1c < 7 Result Component 6.5( 3:12 PM EDT) No Jessica Evans Procedures Procedure Name Priority Date/Time Associated Diagnosis Comments POCT GLYCATED HEMOGLOBIN, TOTAL Routine 01/26/2025 3:12 PM EDT Type 2 diabetes mellitus with stage 3b chronic kidney disease, without long-term current use of insulin ([facility]) POCT GLUCOSE Routine 01/26/2025 3:11 PM EDT Type 2 diabetes mellitus with stage 3b chronic kidney disease, without long-term current use of insulin ([facility]) URIC ACID Routine 01/20/2025 2:36 PM EDT C-REACTIVE PROTEIN Routine 01/20/2025 2: 36 PM EDT COMPREHENSIVE METABOLIC PANEL Routine 01/20/2025 2:36 PM EDT SED RATE BY MODIFIED WESTERGREN Routine 01/20/2025 2:36 PM EDT CBC WITH AUTO DIFFERENTIAL Routine 01/20/2025 2:36 PM EDT T4, FREE Routine 01/20/2025 2:36 PM EDT Abnormal thyroid function test TSH Routine 01/20/2025 2:36 PM EDT Abnormal thyroid function test XR LUMBAR SPINE 2-3 VIEWS Routine 01/19/2025 2:10 PM EDT Low back pain, unspecified back pain laterality, unspecified chronicity, unspecified whether sciatica present ALBUMIN, RANDOM URINE W/CREATININE Routine 01/19/2025 1:57 PM EDT Essential hypertension ECG 12-LEAD Routine 11/23/2024 2:56 PM EDT Essential hypertension LIPID PANEL, STANDARD Routine 11/18/2024 9:57 AM EDT Annual physical exam BI MAMMOGRAM DIAGNOSTIC TOMOSYNTHESIS BILATERAL Routine 06/28/2024 11:45 AM EST HEPATITIS C AB W/REFL TO HCV RNA, QN, PCR Routine 10/13/2023 10:30 AM EDT Annual physical exam HM COLONOSCOPY Routine 09/17/2018 1:13 PM EDT from Last 3 Months or Most Recently Relevant to Health Maintenance Results * (ABNORMAL) POCT Hgb A1c (01/26/2025 3:12 PM EDT) Pathologist [facility] Hemoglobin A1C 6.5(A) 4.0 - 5.7 % QC Media Lot # [id number] Lot# Expiration Date Blood 01/26/2025 3:12 PM EDT Lanny Vasquez MD POINT OF CARE ELANA T ENTER/EDIT ORDERABLES Final Result * POCT Glucose (01/26/2025 3:11 PM EDT) Pathologist [facility] Glucose Blood, POC 107 60 - 200 mg/dL QC Media Lot # [id number] Lot# Expiration Date Blood Capillary blood specimen / Unknown 01/26/2025 3:11 PM EDT Lanny Vasquez MD POINT OF CARE ELANA T ENTER/EDIT ORDERABLES Final Result * CBC auto differential (01/20/2025 2:36 PM EDT) Pathologist [facility] White Blood Count 8.7 4.8 - 10.8 X10*3/uL [facility] Red Blood Count 4.52 4.20 - 5.50 X10*6/uL [facility] Hemoglobin 13.9 12.0 - 16.0 g/dl [facility] Hematocrit 40.8 37.0 - 47.0 % [facility] Mean Corpuscular Volume 90.3 80.0 - 98.0 fL [facility] Mean Corpuscular Hemoglobin 30.8 27.0 - 33.0 pg [facility] Mean Corpuscular HGB Conc 34.1 31.0 - 35.0 g/dl [facility] Red Cell Distribution Width 15.4 11.0 - 16.0 % [facility] Platelet Count 244 160 - 400 X10*3/uL [facility] Mean Platelet Volume 9.8 9.4 - 12.3 fL [facility] Neutrophils Percent Auto 54.2 45 - 73 % [facility] Imm Gran Pct Auto 0.2 0.0 - 0.4 % [facility] Lymphocytes Percent Auto 36.9 20 - 40 % [facility] Monocytes Percent Auto 6.2 2 - 11 % [facility] Eosinophils Percent Auto 2.0 0 - 4 % [facility] Basophils Percent Auto 0.5 0 - 2 % [facility] NRBC Pct Auto 0.0 0.0 - 0.2 /100WBC [facility] Neutrophils Absolute Auto 4.7 2.0 - 8.3 x10*3/uL [facility] Imm Gran Abs Auto 0.02 0.00 - 0.03 X10*3/uL [facility] Lymphocytes Absolute Auto 3.2 1.2 - 4.9 X10*3/uL [facility] Monocytes Absolute Auto 0.5 0.1 - 1.2 X10*3/uL [facility] Eosinophils Absolute Auto 0.2 0.0 - 0.4 X10*3/uL [facility] Basophils Absolute Auto 0.0 0.0 - 0.2 X10*3/uL [facility] NRBC Abs Auto 0.000 0.0 - 0.012 X10*3/uL [facility] 01/20/2025 2:36 PM EDT 01/20/2025 5:25 PM EDT Generic External Data Provider LAB BLOOD ORDERAB LES Final Result Performing Organization Address [facility] Co de Phone Number [facility] [address] [place] [phone] * Sed Rate by Modified Georgeren (01/20/2025 2:36 PM EDT) Erythrocyte Sedimentation Rate 7 0 - 20 MM/HR [facility] Comment:Patients with polycy themia and many hemoglobin abnormalitiesmay have depressed sed rates whereas patients with anemiamay have elevated sed rates. 01/20/2025 2:36 PM EDT 01/20/2025 5:25 PM EDT Generic External Data Provider LAB BLOOD ORDERAB LES Final Result Performing Organization Address [facility] de Phone Number [facility] [address] [place] [phone] * C-reactive Protein (01/20/2025 2:36 PM EDT) C Reactive Protein 0.36 < or = 0.50 mg/dL [facility] 01/20/2025 2:36 PM EDT 01/20/2025 5:25 PM EDT Generic External Data Provider LAB BLOOD ORDERAB LES Final Result Performing Organization Address [facility] Co de Phone Number [facility] [address] [place] [phone] * Uric acid (01/20/2025 2:36 PM EDT) Uric Acid 2.4 2.4 - 5.7 mg/dL [facility] 01/20/2025 2:36 PM EDT 01/20/2025 5:25 PM EDT Generic External Data Provider LAB BLOOD ORDERAB LES Final Result Performing Organization Address [facility] Co de Phone Number [facility] [address] [place] [phone] * TSH (01/20/2025 2:36 PM EDT) Pathologist [facility] Thyroid Stimulating Hormone 3.28 0.32 - 4.0 uIU/mL [facility] Comment:Note: A sustained TS H level above 2.5 uIU/mL may warrant further investigation. TSH 3rd Generation ([facility]) Blood Venous blood specimen / Unknown 01/20/2025 2:36 PM EDT 01/20/2025 5:25 PM EDT Lanny Vasquez MD LAB BLOOD ORDERAB LES Final Result Performing Organization Address [facility] Co de Phone Number [facility] [address] [place] [phone] * T4, Free (01/20/2025 2:36 PM EDT) [facility] Free T4 (Free Thyroxine) 0.97 0.71 - 1.85 ng/dL [facility] Blood Venous blood specimen / Unknown 01/20/2025 2:36 PM EDT 01/20/2025 5:25 PM EDT us Lanny Vasquez MD LAB BLOOD ORDERAB LES Final Result Performing Organization Address [facility] Co de Phone Number [facility] [address] [place] [phone] * (ABNORMAL) Comprehensive Metabolic Panel (01/20/2025 2:36 PM EDT) [facility] Sodium 142 135 - 145 mmol/L [facility] Potassium 4.4 3.3 - 5.1 mmol/L [facility] Chloride 109(H) 96 - 108 mmol/L [facility] Carbon Dioxide 25 22 - 29 mmol/L [facility] Anion Gap 12 12 - 20 [facility] Urea Nitrogen (BUN) 20(H) 9 - 16 mg/dL [facility] Creatinine, Serum 1.17 0.5 - 1.4 mg/dL [facility] Estimated Glomerular Filt Rate 45 [facility] Comment:Chronic Kidney Disea se: Estimated GFR < 60 mL/min/1.78n8Bnnnrn Kidney Disease: Estimated GFR < 15 mL/min/1.73m2 Glucose 144(H) 60 - 115 mg/dL [facility] Calcium 9.4 8.4 - 10.2 mg/dL [facility] Bilirubin, Total 0.3 0.0 - 1.0 mg/dL [facility] Aspartate Amino Transferase 26 5 - 31 U/L [facility] Alanine Aminotransferase 21 0 - 31 U/L [facility] Total Protein 7.1 6.5 - 8.0 g/dL [facility] Albumin Level 4.5 3.5 - 5.0 g/dL [facility] Alkaline Phosphatase 115 39 - 117 U/L [facility] 01/20/2025 2:36 PM EDT 01/20/2025 5:25 PM EDT us Generic External Data Provider LAB BLOOD ORDERAB LES Final Result Performing Organization Address City/State/[facility] Co de Phone Number [facility] [address] [place] [phone] * XR Lumbar Spine 2-3 Views (01/19/2025 2:10 PM EDT) Anatomical Region Laterality Modality Spine, L-spine Radiographic Roula ging 01/19/2025 2:10 PM EDT Narrative 01/19/2025 2:33 PM EDT [place] [address] XRay Report Signed Patient: Mora Manrique MR#: [id number] 7 : 1950 Acct:[id number] Age/Sex: 74 / F ADM Date: 01/19/25 Loc: YESSICA Attending Dr: Lanny Vasquez MD Ordering Physician: Lanny Ewing MD Date of Service: 01/19/25 Procedure(s): XR lumbar spine 2-3V Accession Number(s): [id number] cc: Lanny Ewing MD EXAMINATION: XR LUMBOSACRAL [...] 01/19/25 1430 DD/ 1410 TD/TT: 01/19/25 1419 Linoleum Printer: Procedure Note Donotuseinterpreter, Image - 01/19/2025 [place] [address] XRay Report Signed Patient: Mora Manrique EMR#: [id number] 7 : 1950cct:[id number] Age/Sex: 74 / FADM Date: 01/19/25 Loc: HO.XRAY Attending Dr: Lanny Vasquez MD Ordering Physician: Lanny Ewing MD Date of Service: 01/19/25 Procedure(s): XR lumbar spine 2-3V Accession Number(s): [id number] cc: Lanny Ewing MD EXAMINATION: XR LUMBOSACRAL [...] 01/19/25 1430 DD/ 1410 TD/TT: 01/19/25 1419 Linoleum Printer: us Lanny Vasquez MD IMG XR PROCEDURES Final Result * (ABNORMAL) Albumin, Random Urine W/Creatinine (01/19/2025 1:57 PM EDT) Creatinine, Urine 63.00 mg/dL [facility] Microalbumin Urine 197.0 mg/L [facility] Microalbum Creatinine Ratio Ur 312.6(H) <30 ug/mg cr [facility] Comment:Albumin/Creatinine R atio Reference Ranges: Normal: < 30 ug/mg creatinine Microalbuminuria: 30 - 300 ug/mg creatinineClinical Albuminuria: > 300 ug/mg creatinine Urine (Urine, Random) 01/19/2025 1:57 PM EDT 01/19/2025 2:40 PM EDT us Lanny Vasquez MD LAB URINE ORDERAB LES Final Result [facility] [address] [place] [phone] * ECG 12 lead (11/23/2024 2:56 PM EDT) Narrative Lanny Ewing MD - 11/23/2024 2:56 PM EDT EKG today HR 73, NSR, Qtc 420, sinus arrhythmia,horizontal axis, low QRS voltage ,aVL ,lead III ,aVF TWI us Lanny Vasquez MD ECG ORDERABLES F inal Result * (ABNORMAL) Lipid Panel, Standard (11/18/2024 9:57 AM EDT) Triglycerides 149 <150 mg/dL [facility] Comment:Desirable Triglyceri de: less than 150 mg/dLBorderline High Triglyceride 150-199 mg/dLHigh Triglyceride: 200-499 mg/dLVery High Triglyceride: greater than or equal to 5OO mg/dL Cholesterol 121 <200 mg/dL [facility] Comment:Desirable Cholestero l: less than 200 mg/dLBorderline High Cholesterol: 200-239 mg/dLHigh Cholesterol: greater than 239 mg/dL LDL Cholesterol Calculated 59 <100 mg/dL [facility] Comment:Desirable LDL: less than 100 mg/dLNear Optimal/Above Optimal LDL: 110- 129 mg/dLBorderline High LDL: 130-159 mg/dLHigh LDL: 160-189 mg/dLVery High LDL: greater than or equal to 190 mg/dL HDL Cholesterol 33(L) >40 mg/dL [facility] Comment:Desirable HDL: great er than 40 mg/dL Note: This HDL assay may give artificially low results in patients with liver disease. Blood Venous blood specimen / Unknown 11/18/2024 9:57 AM EDT 11/18/2024 11:06 AM EDT us Lanny Vasquez MD LAB BLOOD ORDERAB LES Final Result [facility] [address], [place] [phone] * BI Mammogram Diagnostic Tomosynthesis Bilateral (06/28/2024 11:45 AM EST) Anatomical Region Laterality Modality Breast Bilateral Mammography 06/28/2024 11:4 5 AM EST Narrative 06/28/2024 2:02 PM EST [facility] [address] [place] [address] Mammography Report Signed Patient: Mora Manrique MR#: [id number] 7 : 1950 Acct:[id number] Age/Sex: 73 / F ADM Date: 06/28/24 Loc: RODOLOF Attending Dr: Lanny Vasquez MD Ordering Physician: Neal Peters MD Results: 3.12M Probably Benign Finding - 12 month F/U Suggested Date of Service: 06/28/24 Follow Up: 12 month diagnos tic follow up Procedure(s): MM tomosynthesis diagnostic BI Accession Number(s): [id number] cc: Neal Peters MD; Lanny Ewing MD [...] by: Yuliya Khalil DO 06/28/2024 01:[address] [facility] Dictated By: Yuliya Khalil DO Signed By: <Electronically signed by Yuliya Khalil DO in OV> 06/28/24 1359 DD/ 1145 TD/TT: 06/28/24 1205 Linoleum Printer: Procedure Note Donotuseinterpreter, Image - 06/28/2024 [facility] [address] [place] [address] Mammography Report Signed Patient: Mora Manrique EMR#: [id number] 7 : 3Acct:[id number] Age/Sex: 73 / FADM Date: 06/28/24 Loc: HO.MAMMO Attending Dr: Lanny Vasquez MD Ordering Physician: Neal Peters MDResults: 3.12M Probably Benign Finding - 12 month F/U Suggested Date of Service: 06/28/24Follow Up: 12 month diagnos tic follow up Procedure(s): MM tomosynthesis diagnostic BI Accession Number(s): [id number] cc: Neal Peters MD; Lanny Ewing MD [...] by: Yuliya Khalil DO 06/28/2024 01:[address] [facility] Dictated By: Yuliya Khalil DO Signed By: <Electronically signed by Yuliya Khalil DO in OV> 06/28/24 1359 DD/ 1145 TD/TT: 06/28/24 1205 Linoleum Printer: [facility] External Provider IMG BI PROCEDURES Final Result * Hepatitis C Antibody with Reflex to HCV, RNA, Quantitative, Real-Time PCR (10/13/2023 10:30 AM EDT) Hepatitis C Antibody Nonreactive Nonreactive [facility] Comment:Antibodies to HCV no t detected; does not exclude early acuteHCV infection. Blood Venous blood specimen / Unknown 10/13/2023 10:30 AM EDT 10/13/2023 11:19 AM EDT Lanny Vasquez MD LAB BLOOD ORDERAB LES Final Result [facility] [address] [place] [phone] * Hm Colonoscopy (09/17/2018 1:13 PM EDT) Historical Provider HEALTH MAINTENANCE Final Result from Last 3 Months or Most Recently Relevant to Health Maintenance Insurance MEDICARE [employer] [address] [place] [id number] [address] [place] [id number] [address] [place] [address] Care Teams Blanket Winder Operator Relationship Specialty Start Date End Date Lanny E[place] MD [address] [place] [address] PCP - General Internal Medicine 03/03/23
--- OUTSIDE RECORDS SUMMARY | 2025-02-22 13:16 | XMS_ITS | Encounter Summary ---
Author Organization [facility] Address [address] [facility] [address] [place] [address] Phone Care Team Providers Care Project Construction Assistant Manager Name Role Phone Lanny Roach Primary Care Provid er Encounter Details Date Type Department Care Team (Late st Contact Info) Description 12/31/2021 Documentation Only [facility] [address] [place] [address] Gabino Donnelly MD [address] [place] [address] [place] [address] Social History Tobacco Use Types [...] [facility] [address] [place] [address] Tiara Barrientos MD [address] [facility] [place] [address] documented as of this encounter Visit Diagnoses Not on filedocumented in this encounter Care Teams Project Construction Assistant Manager Relationship Specialty Start Date End Date Lanny Roach [address] [place] [address] [id number] PCP - General 03/10/24 documented as of this encounter
--- OUTSIDE RECORDS SUMMARY | 2025-02-22 13:16 | XMS_ITS | Encounter Summary ---
Author Organization [employer] Address [address] [place] [address] 7t [place] [address] Care Team Providers Care Senior Industrial Engineer Name Role Phone Lanny [place] MD Primary Care Pro vider Encounter Details Date Type Department Care Team (Late st Contact Info) Description 01/19/2025 Results Follow-Up [facility] [address] [place] [address] Lanny [place] MD [address] [place] [address] XR Lumbar Spine 2-3 Views, Albumin, Random [...] Evans Hemoglobin A1c < 7 Result Component 6.5(09/04/202 5 3:12 PM EDT) No Jessica Evans documented as of this encounter Visit Diagnoses Not on filedocumented in this encounter Additional Health Concerns Assessment Noted Time PHQ-9 Depression Total Score: 0 09/17/19 25 10:40 AM EDT documented as of this encounter Care Teams Senior Industrial Engineer Relationship Specialty Start Date End Date Lanny E[place] MD [address] [place] [address] PCP - General Internal Medicine 03/03/23 documented as of this encounter
--- OUTSIDE RECORDS SUMMARY | 2025-02-22 13:16 | XMS_ITS | Encounter Summary ---
Author Organization [facility] Address [address] [place] [address] Phone Care Team Providers Care Occupational Health Professional Name Role Phone Lanny Roach Primary Care Provid er Encounter Details Date Type Department Care Team (Late Contact Info) Description 01/05/2025 Documentation Only [facility] [address] [place] [address] Mae Olsen [address] [place] [address] Social History Tobacco Use Types [...] [facility] [address] [place] [address] Tiara Barrientos MD [address] [place] [address] [place] [address] documented as of this encounter Visit Diagnoses Not on filedocumented in this encounter Care Teams Occupational Health Professional Relationship Specialty Start Date End Date Lanny Roach [address] [place] [address] PCP - General 03/10/24 documented as of this encounter
--- OUTSIDE RECORDS SUMMARY | 2025-02-22 13:16 | XMS_ITS | Encounter Summary ---
Author Organization [facility] Address [address] [place] [address] 7 [place] [address] Care Team Providers Care Sales Executive Name Role Phone Adenike SouzaP Primary Care Provider Lanny Whitaker MD Primary Care Pro vider Reason for Visit * Reason Comments Med Refill Encounter Details Date Type Department Care Team (Late st Contact Info) Description 12/06/2022 Refill [facility] [address] [place] [address] Vandana Elmore DO [address] [place] [address] Social History Tobacco Use Types Packs/Day Years [...] on filedocumented in this encounter Care Teams Sales Executive Relationship Specialty Start Date End Date Adenike Souza FNP PCP - General Family Medicine 01/15/22 03/02/23 Lanny [place] MD [address] [place] [address] PCP - General Internal Medicine 03/03/23 documented as of this encounter
== END 2025-02-22 12:38 | disposition home or self-care (01) ==
LOC: HO.RHES 11:40
PROVIDERS: PCP Student in an Organized Health Care Education/Training Program; Visit Provider Student in an Organized Health Care Education/Training Program
DX: M1A.39X0 Chronic gout due to renal impairment, multiple sites, without tophus (tophi) (principal); M19.041 Primary osteoarthritis, right hand; M19.042 Primary osteoarthritis, left hand; M17.11 Unilateral primary osteoarthritis, right knee; M05.9 Rheumatoid arthritis with rheumatoid factor, unspecified; M85.88 Other specified disorders of bone density and structure, other site; Z51.81 Encounter for therapeutic drug level monitoring; Z79.899 Other long term (current) drug therapy
CPT/HCPCS: 99214; G2211

== ENCOUNTER → 2025-02-22 11:40 | Outpatient (BNVA) | payer MEDICARE, SELFPAY | PROVIDERS: PCP Student in an Organized Health Care Education/Training Program; Visit Provider Student in an Organized Health Care Education/Training Program | DX: M1A.39X0 Chronic gout due to renal impairment, multiple sites, without tophus (tophi) (principal); M19.041 Primary osteoarthritis, right hand; M19.042 Primary osteoarthritis, left hand; M17.0 Bilateral primary osteoarthritis of knee; M05.9 Rheumatoid arthritis with rheumatoid factor, unspecified; M85.88 Other specified disorders of bone density and structure, other site; Z51.81 Encounter for therapeutic drug level monitoring; Z79.899 Other long term (current) drug therapy | CPT/HCPCS: 99212 ==

== ENCOUNTER 2025-04-19 09:55 | Outpatient (AMB) | payer MEDICARE, SELFPAY ==
[2025-04-19 10:01] VITALS: BP 122/62; PULSE 69; BMI 32.6
--- NOTE | 2025-04-19 10:01 | MHC.OFFVIS ---
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 Allergies latex (LATEX) Allergy (Intermediate, Verified 02/22/25 11:47) BLISTERS abatacept (From Orencia) Allergy (Unknown, Verified 02/22/25 11:47) Itching adalimumab (From Humira) Allergy (Verified 02/22/25 11:47) dizziness aspirin Adverse Reaction (Intermediate, Verified 02/22/25 11:47) abdominal pain Medication List - Last Reconciled 04/19/25 by Lucius Garcia MD albuterol sulfate 2.5 mg inhalation Q4H PRN albuterol sulfate 90 mcg/actuation 2 puffs inhalation Q4H PRN allopurinol 300 mg PO DAILY 90 days azelastine 1 spray intranasal BID PRN bisacodyl 10 mg (2 x 5 mg) PO BEDTIME blood sugar diagnostic (FreeStyle Lite Strips) As directed calcium carbonate-vitamin D3 600 mg-20 mcg (800 unit) 1 tab PO citalopram 20 mg PO DAILY colchicine 0.6 mg PO DAILY PRN dapagliflozin propanediol (Farxiga) 10 mg PO DAILY dexlansoprazole 60 mg PO QAM diclofenac sodium 1% (Arthritis Pain (diclofenac)) 4 grams topical QID ferrous gluconate 324 mg PO Q OTHER DAY gabapentin 300 mg PO TID 90 days hydrochlorothiazide 12.5 mg PO DAILY loratadine (Allergy Relief (loratadine)) 10 mg PO DAILY melatonin 10 mg PO BEDTIME PRN montelukast 10 mg PO BEDTIME semaglutide (Ozempic) mg subcut simvastatin 20 mg PO BEDTIME umeclidinium-vilanterol 62.5-25 mcg/actuation (Anoro Ellipta) 1 ea inhalation DAILY zolpidem 5 mg PO BEDTIME PRN HPI Comments Details: Mora has been referred for evaluation regarding coronary artery calcification on CT scan and concern for abnormal EKG. Patient herself does not have any prior history of cardiac issues including coronary disease or myocardial infarction or cardiomyopathy or in fact anything cardiac nature. With the limits of her activity, she denies any definitive symptoms like exertional angina. Many comorbidities but reasonably well controlled per patient. [facility] Medical History (Updated 04/19/25 @ 10:53 by Lucius Garcia MD) History of right breast cancer (~2004) CKD (chronic kidney disease), stage III Hypoxemia Pneumonia Acute exacerbation of chronic obstructive pulmonary disease (COPD) SUNNI (acute kidney injury) Abnormal mammogram of right breast Type 2 diabetes mellitus Osteopenia Personal history of nicotine dependence Back pain Chronic lung disease Acute and chronic respiratory failure with hypoxia History of Helicobacter pylori infection Osteoarthritis of both feet Lymphedema COVID-19 vaccine administered Hx of cardiac murmur Depression Anemia Hx of gout Elevated cholesterol HTN (hypertension) COPD (chronic obstructive pulmonary disease) GERD (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 reflux disease) care home systemic steroid user Seropositive rheumatoid arthritis Asthma Surgical History Hx of hand surgery H/O cystoscopy Hx of thumb surgery H/O colonoscopy H/O local excision of skin lesion History of bilateral carpal tunnel release S/P lumpectomy, right breast History of esophagogastroduodenoscopy (EGD) Family History Father Throat cancer Mother Asthma Osteoarthritis Sister Breast cancer Social History Household Members: None Housing: House Do you presently have visiting nurse or other home services: No Unable to assess alcohol history related to: Unknown Alcohol intake: never Patient Tobacco Use Status: Former Tobacco user Tobacco use type: Cigarette Years Smoked: (onset 17yo, 1/2ppd x 45yrs, 22pyh - quit 2012) e-Cigarette/Vaping Use: Never Used service: No Current occupational status: retired 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 Female Reproductive History Menstrual Age of Menarche: 14 Review of Systems Const Denies weakness ENT Reports dizziness Card Denies chest pain, Denies chest pain with activity, Reports syncope, Denies rapid heart rate, Denies pedal edema, Denies edema, Denies leg edema, Reports lightheadedness, Denies palpitations, Denies dyspnea, Denies dyspnea on exertion and Denies orthopnea Resp Denies cough, Denies dyspnea and Denies dyspnea on exertion GI Denies hematochezia and Denies change in stool character Musc Denies abnormal gait, Denies muscle cramps, Denies muscle weakness, Denies numbness, Denies radiating pain into limb and Denies tingling Neuro Denies abnormal gait, Reports dizziness, Reports syncope, Denies numbness, Denies tingling and Denies weakness Endo Denies palpitations Physical Exam Vital Signs: Last Vital Signs Pulse 69 04/19/25 10:01 BP 122/62 04/19/25 10:01 BMI result Body Mass Index 32.6 Const General: comfortable and no acute distress Orientation/consciousness: patient oriented x3 HEENT Other: Unremarkable Head: Yes normal to inspection Neck Neck: Yes normal visual inspection Chest Chest palpation & inspection: normal inspection of the chest Resp Auscultation: clear to auscultation bilaterally Cardio Palpation: normal PMI Heart sounds: S1 normal heart sound present, S2 normal heart sound present, no gallops, Murmur heart sound present systolic II/ and no rubs GI Palpation (GI): Soft to palpation Back/Spine/Pelvis Other: unremarkable Skin General skin exam: no rashes or lesions noted Neuro General: patient oriented x3 Extrem General: Yes normal to inspection Psych Mental Status: mental status grossly normal Office Procedures EKG Details: EKG with sinus rhythm at 69/Min; no ischemic changes; [place] [address]-[id number], Complete Assessment & Plan Assessment & Plan (1) Coronary artery calcification seen on CAT scan: Code(s): I25.10 - Atherosclerotic heart disease of [place] coronary artery without angina pectoris Category: Medical Plan Today's EKGs within normal limits. In a prior EKG from 2023, again no clear ischemic findings. In the CTA chest, description of mild coronary artery calcification but it is fairly common at this age. Overall, many comorbidities but no cardiac symptoms and mild coronary calcification on CTA. In his case, no specific management and mainly recommend risk factor modification including management of diabetes, blood pressure and lipids. She has an aortic sclerotic murmur on exam and we will get an echocardiogram to assess that. Less likely suggestive of aortic stenosis. Orders: Orders CA echo transthoracic complete Today I35.8 - Other nonrheumatic aortic valve disorders Coding Level of Care Code New Pt Level 3 (75801) Diagnoses Coronary artery calcification seen on CAT scan I25.10 CPT Codes EKG - CPT: [id number], Complete ([id number])
--- OUTSIDE RECORDS SUMMARY | 2025-04-19 11:33 | XMS_ITS | Encounter Summary ---
Author Organization [facility] Address [address] [place] [address] Phone Care Team Providers Care Shop Tailor Name Role Phone Lanny Roach Primary Care Provid er Encounter Details Date Type Department Care Team (Late st Contact Info) Description 09/03/2023 Documentation Only [facility] [address] [place] [address] Mae Olsen [address] [place] [address] Social History Tobacco Use Types Packs/Day Years Used Date Smoking Tobacco: Former Cigarettes 0 Q uit: 05/25/2014 Alcohol Use Standard Drinks/Week [...] [facility] [address] [place] [address] Tiara Barrientos MD [address] [place] [address] [place] [address] documented as of this encounter Visit Diagnoses Not on filedocumented in this encounter Care Teams Shop Tailor Relationship Specialty Start Date End Date Lanny Roach [address] [place] [address] PCP - General 03/10/24 documented as of this encounter
--- OUTSIDE RECORDS SUMMARY | 2025-04-19 11:33 | XMS_ITS | Encounter Summary ---
Author Organization [facility] Address [address] [place] [address] Phone Care Team Providers Care Roller Inspector And Mender Name Role Phone Lanny Roach Primary Care Provid er Encounter Details Date Type Department Care Team (Late st Contact Info) Description 09/03/2023 Documentation Only [facility] [address] [place] [address] Mae Olsen [address] [place] [address] Social History Tobacco Use Types [...] [facility] [address] [place] [address] Tiara Barrientos MD [address] [place] [address] [place] [address] documented as of this encounter Visit Diagnoses Not on filedocumented in this encounter Care Teams Roller Inspector And Mender Relationship Specialty Start Date End Date Lanny Roach [address] [place] [address] PCP - General 03/10/24 documented as of this encounter
--- OUTSIDE RECORDS SUMMARY | 2025-04-19 11:33 | XMS_ITS | Encounter Summary ---
Author Organization [facility] Address [address] [place] [address] Phone Care Team Providers Care Sld Inclusion Teacher Name Role Phone Lanny Roach Primary Care Provid er Encounter Details Date Type Department Care Team (Late st Contact Info) Description 09/03/2023 Documentation Only [facility] [address] [address] Mae Olsen [address] [place] [address] Social History Tobacco Use Types [...] Visit [facility] [address] [address] Tiara Barrientos MD [address] [place] [address] [place] [address] documented as of this encounter Visit Diagnoses Not on filedocumented in this encounter Care Teams Sld Inclusion Teacher Relationship Specialty Start Date End Date Lanny Roach [address] [place] [address] PCP - General 03/10/24 documented as of this encounter
--- OUTSIDE RECORDS SUMMARY | 2025-04-19 11:33 | XMS_ITS | Encounter Summary ---
Author Organization [facility] Address [address] [place] [address] Phone Care Team Providers Care Manager Basketball Name Role Phone Lanny Roach Primary Care Provid er Encounter Details Date Type Department Care Team (Late Contact Info) Description 11/17/2024 Documentation Only [facility] [address] [place] [address] Mae Olsen [address] [place] [address] Social History Tobacco Use Types [...] Visit [facility] [address] [place] [address] Tiara Barrientos MD [address] [place] [address] [place] [address] documented as of this encounter Visit Diagnoses Not on filedocumented in this encounter Care Teams Manager Basketball Relationship Specialty Start Date End Date Lanny Roach [address] [place] [address] PCP - General 03/10/24 documented as of this encounter
--- OUTSIDE RECORDS SUMMARY | 2025-04-19 11:33 | XMS_ITS | Encounter Summary ---
Author Organization [facility] Address [address] [place] [address] Phone Care Team Providers Care Residential Care Officer Name Role Phone Lanny Roach Primary Care Provid er Encounter Details Date Type Department Care Team (Late Contact Info) Description 11/17/2024 Documentation Only [facility] [address] [place] [address] Mae Olsen [address] [place] [address] Social History Tobacco Use Types [...] Visit [facility] [address] [place] [address] Tiara Barrientos MD [address] [place] [address] [place] [address] documented as of this encounter Visit Diagnoses Not on filedocumented in this encounter Care Teams Residential Care Officer Relationship Specialty Start Date End Date Lanny Roach [address] [place] [address] PCP - General 03/10/24 documented as of this encounter
--- OUTSIDE RECORDS SUMMARY | 2025-04-19 11:33 | XMS_ITS | Encounter Summary ---
Author Organization [facility] Address [address] [place] [address] Phone Care Team Providers Care Hand Blocker Name Role Phone Lanny Roach Primary Care Provid er Encounter Details Date Type Department Care Team (Late st Contact Info) Description 09/03/2023 Documentation Only [facility] [address] [place] [address] Mae Olsen [address] [place] [address] Social History Tobacco Use Types [...] [facility] [address] [place] [address] Tiara Barrientos MD [address] [place] [address] [place] [address] documented as of this encounter Visit Diagnoses Not on filedocumented in this encounter Care Teams Hand Blocker Relationship Specialty Start Date End Date Lanny Roach [address] [place] [address] PCP - General 03/10/24 documented as of this encounter
--- OUTSIDE RECORDS SUMMARY | 2025-04-19 11:33 | XMS_ITS | Encounter Summary ---
Author Organization [facility] Address [address] [place] [address] Phone Care Team Providers Care Band Instrument Maker Name Role Phone Lanny Roach Primary Care Provid er Encounter Details Date Type Department Care Team (Late st Contact Info) Description 09/03/2023 Documentation Only [facility] [address] [place] [address] Mae Olsen [address] [place] [address] Social History Tobacco Use Types [...] [facility] [address] [place] [address] Tiara Barrientos MD [address] [place] [address] [place] [address] documented as of this encounter Visit Diagnoses Not on filedocumented in this encounter Care Teams Band Instrument Maker Relationship Specialty Start Date End Date Lanny Roach [address] [place] [address] PCP - General 03/10/24 documented as of this encounter
--- OUTSIDE RECORDS SUMMARY | 2025-04-19 11:33 | XMS_ITS | Encounter Summary ---
Author Organization [facility] Address [address] [place] [address] Phone Care Team Providers Care Planning Technician Name Role Phone Lanny Roach Primary Care Provid er Encounter Details Date Type Department Care Team (Late st Contact Info) Description 09/03/2023 Documentation Only [facility] [address] [place] [address] Mae Olsen [address] [place], [place] [...] [facility] [address] [place] [address] Tiara Barrientos MD [address] [place] [address] [place] [address] documented as of this encounter Visit Diagnoses Not on filedocumented in this encounter Care Teams Planning Technician Relationship Specialty Start Date End Date Lanny Roach [address] [place] [address] PCP - General 03/10/24 documented as of this encounter
--- OUTSIDE RECORDS SUMMARY | 2025-04-19 11:33 | XMS_ITS | Encounter Summary ---
Author Organization [facility] Address [address] [place] [address] Phone Care Team Providers Care Casual Shoe Inspector Name Role Phone Lanny Roach Primary Care Provid er Encounter Details Date Type Department Care Team (Late st Contact Info) Description 09/03/2023 Documentation Only [facility] [address] [place] [address] Mae Olsen [address] [place] [address] Social History Tobacco Use Types [...] [facility] [address] [place] [address] Tiara Barrientos MD [address] [place] [address] [place] [address] documented as of this encounter Visit Diagnoses Not on filedocumented in this encounter Care Teams Casual Shoe Inspector Relationship Specialty Start Date End Date Lanny Roach [address] [place] [address] PCP - General 03/10/24 documented as of this encounter
--- OUTSIDE RECORDS SUMMARY | 2025-04-19 11:33 | XMS_ITS | Encounter Summary ---
Author Organization [facility] Address [address] [place] [address] Phone Care Team Providers Care Twisting Operator Name Role Phone Lanny Roach Primary Care Provid er Encounter Details Date Type Department Care Team (Late st Contact Info) Description 09/03/2023 Documentation Only [facility] [address] [place] [address] Mae Olsen [address] [place] [address] Social History Tobacco Use Types [...] [facility] [address] [place] [address] Tiara Barrientos MD [address] [place] [address] [place] [address] documented as of this encounter Visit Diagnoses Not on filedocumented in this encounter Care Teams Twisting Operator Relationship Specialty Start Date End Date Lanny Roach [address] [place] [address] PCP - General 03/10/24 documented as of this encounter
--- OUTSIDE RECORDS SUMMARY | 2025-04-19 11:33 | XMS_ITS | Encounter Summary ---
Author Organization [facility] Address [address] [place] [address] Phone Care Team Providers Care Critical Systems Technician Name Role Phone Lanny Roach Primary Care Provid er Encounter Details Date Type Department Care Team (Late st Contact Info) Description 09/03/2023 Documentation Only [facility] [address] [place] [address] Mae Olsen [address] [place] [address] Social History Tobacco Use Types [...] Visit [facility] [address] [place] [address] Tiara Barrientos MD [address] [place] [address] [place] [address] documented as of this encounter Visit Diagnoses Not on filedocumented in this encounter Care Teams Critical Systems Technician Relationship Specialty Start Date End Date Lanny Roach [address] [place] [address] PCP - General 03/10/24 documented as of this encounter
--- OUTSIDE RECORDS SUMMARY | 2025-04-19 11:33 | XMS_ITS | Encounter Summary ---
Author Organization [facility] Address [address] [place] [address] Phone Care Team Providers Care Running Specialist Name Role Phone Lanny Roach Primary Care Provid er Encounter Details Date Type Department Care Team (Late st Contact Info) Description 09/03/2023 Documentation Only [facility] [address] [place] [address] Mae Olsen [address] [place] [address] Social History Tobacco Use Types [...] [facility] [address] [place] [address] Tiara Barrientos MD [address] [place] [address] [place] [address] documented as of this encounter Visit Diagnoses Not on filedocumented in this encounter Care Teams Running Specialist Relationship Specialty Start Date End Date Lanny Roach [address] [place] [address] PCP - General 03/10/24 documented as of this encounter
--- OUTSIDE RECORDS SUMMARY | 2025-04-19 11:33 | XMS_ITS | Encounter Summary ---
Author Organization [facility] Address [address] [place] [address] Phone Care Team Providers Care Clinical Application Consultant Name Role Phone Lanny Roach Primary Care Provid er Encounter Details Date Type Department Care Team (Late Contact Info) Description 11/17/2024 Documentation Only [facility] [address] [place] [address] Mae Olsen [address] [place] [address] Social History Tobacco Use Types [...] [facility] [address] [place] [address] Tiara Barrientos MD [address] [place] [address] [place] [address] documented as of this encounter Visit Diagnoses Not on filedocumented in this encounter Care Teams Clinical Application Consultant Relationship Specialty Start Date End Date Lanny Roach [address] [place] [address] PCP - General 03/10/24 documented as of this encounter
--- OUTSIDE RECORDS SUMMARY | 2025-04-19 11:33 | XMS_ITS | Encounter Summary ---
Author Organization [facility] Address [address] [place] [address] Phone Care Team Providers Care Private Wealth Advisor Name Role Phone Lanny Roach Primary Care Provid er Encounter Details Date Type Department Care Team (Late st Contact Info) Description 09/03/2023 Documentation Only [facility] [address] [place] [address] Mae Olsen [address] [place] [address] Social History Tobacco Use [...] [facility] [address] [place] [address] Tiara Barrientos MD [address] [place] [address] [place] [address] documented as of this encounter Visit Diagnoses Not on filedocumented in this encounter Care Teams Private Wealth Advisor Relationship Specialty Start Date End Date Lanny Roach [address] [place] [address] PCP - General 03/10/24 documented as of this encounter
--- OUTSIDE RECORDS SUMMARY | 2025-04-19 11:33 | XMS_ITS | Encounter Summary ---
Author Organization [facility] Address [address] [place] [address] Phone Care Team Providers Care Globe Cleaner Name Role Phone Lanny Roach Primary Care Provid er Encounter Details Date Type Department Care Team (Late st Contact Info) Description 09/03/2023 Documentation Only [facility] [address] [place] [address] Mae Olsen [address] [place] [address] Social History Tobacco Use Types [...] Services Of [address] [place] [address] Tiara Barrientos MD [address] [place] [address] [place] [address] documented as of this encounter Visit Diagnoses Not on filedocumented in this encounter Care Teams Globe Cleaner Relationship Specialty Start Date End Date Lanny Roach [address] [place] [address] PCP - General 03/10/24 documented as of this encounter
--- OUTSIDE RECORDS SUMMARY | 2025-04-19 11:33 | XMS_ITS | Encounter Summary ---
Author Organization [employer] Address [address] [place] [address] 7t [place] [address] Care Team Providers Care Documentation Nurse Name Role Phone Lanny Ewing MD Primary Care Pro vider Encounter Details Date Type Department Care Team (Late st Contact Info) Description 10/26/2023 Orders Only [facility] [address] [place] [address] Provider, MD Sherly Social History Tobacco Use [...] Care Team (Late st Contact Info) Description 06/23/2025 1:00 PM EST Office Visit [facility] [address] [place] [address] Lanny Ewing MD [address] [place] [address] 06/27/2025 11:00 AM EST Office Visit [facility] [address] [place], [place] [phone] Dorene Dumas MD [address] [place] [address] documented as of this encounter Goals Goal [...] EDT) Historical Provider HEALTH MAINTENANCE Final Result documented in this encounter Visit Diagnoses Not on filedocumented in this encounter Additional Health Concerns Assessment Noted Time PHQ-9 Depression Total Score: 7 09/11/19 24 2:05 PM EDT documented as of this encounter Care Teams Documentation Nurse Relationship Specialty Start Date End Date Lanny Ewing MD [address] [place] [address] PCP - General Internal Medicine 03/03/23 documented as of this encounter
--- OUTSIDE RECORDS SUMMARY | 2025-04-19 11:33 | XMS_ITS | Encounter Summary ---
Author Organization [employer] Address [address] [place] [address] 7 [place] [address] Care Team Providers Care Trash Collector Truck Driver Name Role Phone Lanny Ewing MD Primary Care Pro vider Reason for Visit * Reason Comments Med Refill Encounter Details Date Type Department Care Team ([facility] st Contact Info) Description 12/23/2023 Refill [facility] [address] [place] [address] Lanny Ewing MD [address] [place], [place] [phone] Social History Tobacco Use Types Packs/Day Years [...] Description 06/23/2025 1:00 PM EST Office Visit [facility] [address] [place] [address] Lanny Ewing MD [address] [place] [address] 06/27/2025 11:00 AM EST Office Visit [facility] [address] [place] [address] Dorene Dumas MD [address] [place] [address] documented as of this encounter Goals Goal [...] documented as of this encounter Care Teams Trash Collector Truck Driver Relationship Specialty Start Date End Date Lanny Ewing MD [address] [place] [address] PCP - General Internal Medicine 03/03/23 documented as of this encounter
--- OUTSIDE RECORDS SUMMARY | 2025-04-19 11:33 | XMS_ITS | Encounter Summary ---
Author Organization [facility] Address [address] [place] [address] Phone Care Team Providers Care Pct Name Role Phone Lanny Roach Primary Care Provid er Encounter Details Date Type Department Care Team (Late st Contact Info) Description 09/03/2023 Documentation Only [facility] [address] [place] [address] Mae Olsen [address] [place] [address] Social History Tobacco Use Types [...] [facility] [address] [place] [address] Tiara Barrientos MD [address] [place] [address] [place] [address] documented as of this encounter Visit Diagnoses Not on filedocumented in this encounter Care Teams Pct Relationship Specialty Start Date End Date Lanny Roach [address] [place] [address] PCP - General 03/10/24 documented as of this encounter
--- OUTSIDE RECORDS SUMMARY | 2025-04-19 11:33 | XMS_ITS | Encounter Summary ---
Author Organization [facility] Address [address] [place] [address] Phone Care Team Providers Care Senior System Operator Name Role Phone Lanny Roach Primary Care Provid er Encounter Details Date Type Department Care Team (Late st Contact Info) Description 09/03/2023 Documentation Only [facility] [address] [place] [address] Mae Olsen [address] [place] [address] Social History Tobacco Use Types [...] [facility] [address] [place] [address] Tiara Barrientos MD [address] [place] [address] [place] [address] documented as of this encounter Visit Diagnoses Not on filedocumented in this encounter Care Teams Senior System Operator Relationship Specialty Start Date End Date Lanny Roach [address] [place] [address] PCP - General 03/10/24 documented as of this encounter
--- OUTSIDE RECORDS SUMMARY | 2025-04-19 11:33 | XMS_ITS | Encounter Summary ---
Author Organization [facility] Address [address] [place] [address] Phone Care Team Providers Care Honing Machine Operator Production Name Role Phone Lanny Roach Primary Care Provid er Encounter Details Date Type Department Care Team (Late st Contact Info) Description 09/03/2023 Documentation Only [facility] [address] [place] [address] Mae Olsen [address] [place] [address] Social History Tobacco Use Types [...] [facility] [address] [place] [address] Tiara Barrientos MD [address] [place] [address] [place] [address] documented as of this encounter Visit Diagnoses Not on filedocumented in this encounter Care Teams Honing Machine Operator Production Relationship Specialty Start Date End Date Lanny Roach [address] [place] [address] PCP - General 03/10/24 documented as of this encounter
--- OUTSIDE RECORDS SUMMARY | 2025-04-19 11:33 | XMS_ITS | Encounter Summary ---
Author Organization [facility] Address [address] [place] [address] Phone Care Team Providers Care Law Office Receptionist Name Role Phone Lanny Roach Primary Care Provid er Encounter Details Date Type Department Care Team (Late st Contact Info) Description 09/03/2023 Documentation Only [facility] [address] [place] [address] Mae Olsen [address] [place] [address] Social History Tobacco Use Types [...] Services Of [address] [place] [address] Tiara Barrientos MD [address] [place] [address] [place] [address] documented as of this encounter Visit Diagnoses Not on filedocumented in this encounter Care Teams Law Office Receptionist Relationship Specialty Start Date End Date Lanny Roach [address] [place] [address] PCP - General 03/10/24 documented as of this encounter
--- OUTSIDE RECORDS SUMMARY | 2025-04-19 11:33 | XMS_ITS | Encounter Summary ---
Author Organization [facility] Address [address] [place] [address] Phone Care Team Providers Care Computer Systems Design Analyst Name Role Phone Lanny Roach Primary Care Provid er Encounter Details Date Type Department Care Team (Late st Contact Info) Description 09/03/2023 Documentation Only [facility] [address] [place] [address] Mae Olsen [address] [place] [address] Social History Tobacco Use [...] Visit [facility] [address] [place] [address] Tiara Barrientos MD [address] [place] [address] [place] [address] documented as of this encounter Visit Diagnoses Not on filedocumented in this encounter Care Teams Computer Systems Design Analyst Relationship Specialty Start Date End Date Lanny Roach [address] [place] [address] PCP - General 03/10/24 documented as of this encounter
--- OUTSIDE RECORDS SUMMARY | 2025-04-19 11:33 | XMS_ITS | Encounter Summary ---
Author Organization [facility] Address [address] [facility] [address] [place] [address] Phone Care Team Providers Care Visualization Developer Name Role Phone Lanny Roach Primary Care Provid er Encounter Details Date Type Department Care Team (Late st Contact Info) Description 10/07/2022 Documentation Only [facility] [address] [place] [address] [place] [address] [place] [address] Social History Tobacco Use Types Packs/Day Years Used Date Smoking Tobacco: Former Cigarettes 36 0 05/25/1977 - 05/25/2013 Alcohol Use Standard [...] [facility] [address] [place] [address] Tiara Barrientos MD [address] [place] [address] [place] [address] documented as of this encounter Visit Diagnoses Not on filedocumented in this encounter Care Teams Visualization Developer Relationship Specialty Start Date End Date Lanny Roach [address] [place] [phone] PCP - General 03/10/24 documented as of this encounter
--- OUTSIDE RECORDS SUMMARY | 2025-04-19 11:33 | XMS_ITS | Encounter Summary ---
Author Organization [facility] Address [address] [place] [address] Phone Care Team Providers Care Rattlesnake Farmer Name Role Phone Lanny Roach Primary Care Provid er Encounter Details Date Type Department Care Team (Late st Contact Info) Description 09/03/2023 Documentation Only [facility] [address] [place] [address] Mae Olsen [address] [place] [address] Social History Tobacco Use Types [...] [facility] [address] [place] [address] Tiara Barrientos MD [address] [place] [address] [place] [address] documented as of this encounter Visit Diagnoses Not on filedocumented in this encounter Care Teams Rattlesnake Farmer Relationship Specialty Start Date End Date Lanny Roach [address] [place] [address] PCP - General 03/10/24 documented as of this encounter
--- OUTSIDE RECORDS SUMMARY | 2025-04-19 11:33 | XMS_ITS | Encounter Summary ---
Author Organization [facility] Address [address] [place] [address] Phone Care Team Providers Care Relief Cook Name Role Phone Lanny Roach Primary Care Provid er Encounter Details Date Type Department Care Team (Late st Contact Info) Description 09/03/2023 Documentation Only [facility] [address] [place] [address] Mae Olsen [address] [place], [...] [facility] [address] [place] [address] Tiara Barrientos MD [address] [place] [address] [place] [address] documented as of this encounter Visit Diagnoses Not on filedocumented in this encounter Care Teams Relief Cook Relationship Specialty Start Date End Date Lanny Roach [address] [place] [address] PCP - General 03/10/24 documented as of this encounter
--- OUTSIDE RECORDS SUMMARY | 2025-04-19 11:33 | XMS_ITS | Encounter Summary ---
Author Organization [facility] Address [address] [place] [address] Phone Care Team Providers Care Pillow Agent Name Role Phone Lanny Roach Primary Care Provid er Encounter Details Date Type Department Care Team (Late st Contact Info) Description 09/03/2023 Documentation Only [facility] [address] [place] [address] Mae Olsen [address] [place] [address] Social History Tobacco Use Types [...] [facility] [address] [place] [address] Tiara Barrientos MD [address] [place] [address] [place] [address] documented as of this encounter Visit Diagnoses Not on filedocumented in this encounter Care Teams Pillow Agent Relationship Specialty Start Date End Date Lanny Roach [address] [place] [address] PCP - General 03/10/24 documented as of this encounter
--- OUTSIDE RECORDS SUMMARY | 2025-04-19 11:34 | XMS_ITS | Clinical Summary ---
Author Organization [employer] Address [address] [place] [address] [address] [place] [address] Care Team Providers Care Research Professional Name Role Phone Lanny Ewing MD Primary [...] mg by mouth if needed each day. 023 Active dexlansoprazol e (Dexilant) [address] capsule Take 1 capsule by mouth in the morning. 022 Active albuterol (2.5 MG/3ML) 0.083% nebulizer solutionIndica tions:Seasonal allergic rhinitis, unspecified trigger Take 3 mL (2.5 mg) by nebulization every 4 (four) hours if needed for wheezing or shortness of breath. 75 mL 3 023 Active Blood Pressure Monitor misc 1 Device Once per day. Needs large cuff size 1 each 024 Active Blood Glucose Monitoring Suppl (ONE TOUCH ULTRA 2) w/Device kitIndications :Type 2 diabetes mellitus with stage 3b chronic kidney disease, without long-term current use of insulin (HCC) USE TO TEST BLOOD SUGAR TWICE A DAY 1 kit 10/08/2 024 Active glucose blood (OneTouch Verio) test stripIndicatio ns:Type 2 diabetes mellitus with stage 3b chronic kidney disease, without long-term current use of insulin (HCC) 1 each by Other route Once per day. 100 each 11 Active Lancets 33G miscIndication s:Type 2 diabetes mellitus with stage 3b chronic kidney disease, without long-term current use of insulin ([facility]) 1 each Once per day. 100 each 024 Active allopurinol (Zyloprim) 300 MG tablet Take 300 mg by mouth in the morning. Active Bisacodyl EC 5 MG EC tablet take 2 tablets by mouth every day at bedtime Active ramelteon (Rozerem) 8 MG tablet Take 1 tablet (8 mg) by mouth at bedtime. 30 tablet 2 5 10:57 AM EST 025 2025 Active gabapentin (Neurontin) 300 MG capsule Take 1 capsule by mouth 3 times daily. 025 Active albuterol (Ventolin HFA) 108 (90 Base) MCG/ACT inhaler INHALE 2 PUFFS BY MOUTH EVERY 6 HOURS NEEDED 18 g 025 Active Azelastine HCl 137 MCG/SPRAY solution SPRAY 1 SPRAY IN EACH NOSTRIL TWICE DAILY DIRECTED 30 mL 5 5 10:57 AM EST 025 Active lidocaine-pril ocaine (Emla) 2.5-2.5 % cream Apply topically if needed each day for mild pain. 5 g 1 025 Active citalopram (CeleXA) 20 MG tablet TAKE 1 TABLET BY MOUTH EVERY MORNING 90 tablet 1 5 10:57 AM EST 025 Active montelukast (Singulair) 10 MG tabletIndicati ons:Seasonal allergic rhinitis, unspecified trigger TAKE 1 TABLET BY MOUTH AT BEDTIME 90 tablet 1 5 10:57 AM EST 025 Active lisinopril 5 MG tablet TAKE 1 TABLET BY MOUTH EVERY MORNING 90 tablet 025 Active Farxiga 10 MGIndications: Type 2 diabetes mellitus with stage 3b chronic kidney disease, without long-term current use of insulin ([facility]) TAKE 1 TABLET BY MOUTH EVERY MORNING 90 tablet Active loratadine (Claritin) 10 MG tabletIndicati ons:Seasonal allergic rhinitis, unspecified trigger TAKE 1 TABLET BY MOUTH EVERY MORNING 90 tablet Active Calcium 600/Vitamin D3 600-20 MG-MCG tablet TAKE 1 TABLET BY MOUTH TWICE DAILY IN THE MORNING AND IN THE EVENING 180 tablet 1 Active Ozempic, 2 MG/DOSE, 8 MG/3ML solution pen-injectorIn dications:Type 2 diabetes mellitus with stage 3b chronic kidney disease, without long-term current use of insulin (HCC) Inject 2 MG SUBCUTANEOUSLY EVERY 7 DAYS IN THE ABDOMEN, THIGHS OR UPPER ARM. ROTATE INJECTION SITES. 3 mL 5 Active atorvastatin (Lipitor) 20 MG tablet Take 1 tablet (20 mg) by mouth at bedtime. 90 tablet Active ferrous gluconate (Fergon) 324 (38 Fe) MG tablet TAKE 1 TABLET BY MOUTH EVERY OTHER DAY IN THE MORNING 45 tablet 1 5 10:57 AM EST Active Anoro Ellipta 62.5-25 MCG/ACT aerosol powder INHALE 1 PUFF BY MOUTH EVERY DAY AT THE SAME TIME RINSE MOUTH AFTER USING (USE IN THE MORNING) 60 each 5 5 10:57 AM EST Active ferrous gluconate (Fergon) 324 (38 Fe) MG tablet Take 1 tablet (324 mg) by mouth every other day. TAKE 1 TABLET BY MOUTH EVERY OTHER DAY IN THE MORNING 45 tablet 1 025 2024 Discontinued Anoro Ellipta 62.5-25 MCG/ACT aerosol powder INHALE 1 PUFF BY MOUTH EVERY DAY AT THE SAME TIME RINSE MOUTH AFTER USING IN THE MORNING RINSE MOUTH AFTER USING. 60 each 5 025 2024 Discontinued Active Problems Problem Noted Date [...] Carpal tunnel syndrome 01/28/2022 Seropositive rheumatoid arthritis ([facility]) 02/22 Overview (11/23/2022): Sees rheumatology for back pain. Next appt 11/07/22 Assessment & Plan (12/18/2022 11:10 PM EDT): Care managed by specialist F/U PRN Assessment & Plan (11/23/2022 11:51 PM EDT): Encouraged pt to notify Rheum of her L shoulder pain and back pain Proteinuria 12/26/2020 Microscopic hematuria 12/02/2019 Stage 3 chronic kidney disease ([facility]) 020 Chronic gouty arthritis 11/04/2018 Overview (07/24/2022): Has Allopurinol and Cochicine at home. Uses PRN Essential hypertension 08/19/2018 Overview (11/23/2022): Lisinopril dose reduction recently since her Potassium was elevated. Suggestion Clerk informed her that her potassium level was [...] organization. Date Type Department Care Team Description 04/09/2025 Refill [facility] [address] [place] [address] Lanny Ewing MD 04/06/2025 Refill [facility] [address] [place] [address] Lanny Ewing MD 04/03/2025 Telephone [facility] [address] [place] [address] Lanny Ewing MD sobeida recall 03/17/2025 Refill [facility] MEDIC[facility] [address] [place] [address] Lanny Ewing MD 03/17/2025 Refill [facility] [address] [place] [address] Lanny Ewing MD 03/16/2025 Refill [facility] [address] [place] [address] Lanny Ewing MD Type 2 diabetes mellitus with stage 3b chronic kidney disease, without long-term current use of insulin (HCC) 03/09/2025 Refill [facility] [address] [place] [address] Lanny Ewing MD 02/24/2025 Telephone C MEDICINE [address] [place] [address] Lanny Ewing MD Prior Authorization 02/24/2025 Telephone [facility] [address] [place] [address] Lanny Ewing MD Paperwork/Forms 02/15/2025 Refill [facility] [address] [place] [address] Lanny Ewing MD Seasonal allergic rhinitis, unspecified trigger 02/14/2025 Refill [facility] [address] [place] [address] Lanny Ewing MD Type 2 diabetes mellitus with stage 3b chronic kidney disease, without long-term current use of insulin ([facility]/HCC) 01/26/2025 2:15 PM EDT Office Visit [facility] [address] [place] [address] Lanny Ewing MD Rosacea (Primary Dx); Type 2 diabetes mellitus with stage 3b chronic kidney disease, without long-term current use of insulin ([facility]); Essential hypertension; Obesity (BMI 30-39.9); Anxiety disorder, unspecified type; Recurrent major depressive episodes, mild (CMS/[facility]); History of tobacco use; Insomnia, unspecified type 01/26/2025 Travel 01/20/2025 Orders Only GENERIC EXTERNAL DATA DEPARTMENT Provider, Generic External Data 01/19/2025 Results Follow-Up [facility] [address] [place] [address] Lanny Ewing MD XR Lumbar Spine 2-3 Views, Albumin, Random Urine W/Creatinine from Last 3 Months Immunizations Immunization Administration [...] 01/26/2025 2:59 PM EDT Plan of Treatment Upcoming Encounters Date Type Department Care Team (Late st Contact Info) Description 06/23/2025 1:00 PM EST Office Visit [facility] [address] [place] [address] Lanny Ewing MD [address] [place] [address] 06/27/2025 11:00 AM EST Office Visit [facility] [address] [place] [address] Dorene Dumas MD [address] [place] [address] Health Maintenance Due Date Last Done Comments CT Colonography 1950 FIT DNA/Cologuard 1950 FIT 1950 FOBT 1950 Sigmoidoscopy 1950 Eye Exam 1962 Diabetes: Foot Exam 12/11/2023 12/10/2022, COVID-19 Vaccine ( season) 2025 09/19/2024, 09/11/2023, 11/30/2021, Additional history exists Influenza Vaccine (#1) 2025 , 03/30/2023, 05/23/2021, Additional history exists Diabetes: Hemoglobin A1C 04/27/2025 025, 11/18/2024, 09/16/2024, Additional history exists Diagnostic Breast Imaging 06/28/20252024, 03/24/2024, 06/16/2022 Mammogram 06/28/2025 06/28/2024, 08/2024, 03/24/2024, Additional history exists SDOH Screening [...] disease, without long-term current use of insulin ([facility]) POCT GLUCOSE Routine 01/26/2025 3:11 PM EDT Type 2 diabetes mellitus with stage 3b chronic kidney disease, without long-term current use of insulin ([facility]) URIC ACID Routine 01/20/2025 2:36 PM EDT [...] Routine 01/19/2025 1:57 PM EDT Essential hypertension LIPID PANEL, STANDARD [...] POCT Hgb A1c (01/26/2025 3:12 PM EDT) Hemoglobin A1C 6.5(A) 4.0 - 5.7 % QC Media Lot # [id number] Lot# Expiration Date Blood 01/26/2025 3:12 PM EDT Lanny Vasquez MD POINT OF CARE ELANA T ENTER/EDIT ORDERABLES Final Result * POCT Glucose (01/26/2025 3:11 PM EDT) Glucose Blood, POC 107 60 - 200 mg/dL QC Media Lot # [id number] Lot# Expiration Date Blood Capillary blood specimen / Unknown 01/26/2025 3:11 PM EDT Lanny Vasquez MD POINT OF CARE ELANA T ENTER/EDIT ORDERABLES Final Result * CBC auto differential (01/20/2025 2:36 PM EDT) White Blood Count 8.7 4.8 - 10.8 X10*3/uL [facility] Red Blood Count 4.52 4.20 - 5.50 X10*6/uL [facility] Hemoglobin 13.9 12.0 - 16.0 g/dl [facility] Hematocrit 40.8 37.0 - 47.0 % [facility] Mean Corpuscular Volume 90.3 80.0 - 98.0 fL [facility] Mean Corpuscular Hemoglobin 30.8 27.0 - 33.0 pg [facility] Mean Corpuscular HGB Conc 34.1 31.0 - 35.0 g/dl [facility] Red Cell Distribution Width 15.4 11.0 - 16.0 % [facility] Platelet Count 244 160 - 400 X10*3/uL [facility] Mean Platelet Volume 9.8 9.4 - 12.3 fL [facility] Neutrophils Percent Auto 54.2 45 - 73 % [facility] Imm Gran Pct Auto 0.2 0.0 - 0.4 % [facility] Lymphocytes Percent Auto 36.9 20 - 40 % [facility] Monocytes Percent Auto 6.2 2 - 11 % [facility] Eosinophils Percent Auto 2.0 0 - 4 % [facility] Basophils Percent Auto 0.5 0 - 2 % [facility] NRBC Pct Auto 0.0 0.0 - 0.2 /100WBC [facility] Neutrophils Absolute Auto 4.7 2.0 - 8.3 x10*3/uL [facility] Imm Gran Abs Auto 0.02 0.00 - 0.03 X10*3/uL [facility] Lymphocytes Absolute Auto 3.2 1.2 - 4.9 X10*3/uL [facility] Monocytes Absolute Auto 0.5 0.1 - 1.2 X10*3/uL [facility] Eosinophils Absolute Auto 0.2 0.0 - 0.4 X10*3/uL [facility] Basophils Absolute Auto 0.0 0.0 - 0.2 X10*3/uL [facility] NRBC Abs Auto 0.000 0.0 - 0.012 X10*3/uL [facility] 01/20/2025 2:36 PM EDT 01/20/2025 5:25 PM EDT Generic External Data Provider LAB BLOOD ORDERAB LES Final Result Performing Organization Address [facility] Co de Phone Number [facility] [address] [place] [phone] * Sed Rate by Modified Luanergren (01/20/2025 2:36 PM EDT) Erythrocyte Sedimentation Rate 7 0 - 20 MM/HR [facility] Comment:Patients with polycy themia and many hemoglobin abnormalitiesmay have depressed sed rates whereas patients with anemiamay have elevated sed rates. 01/20/2025 2:36 PM EDT 01/20/2025 5:25 PM EDT Generic External Data Provider LAB BLOOD ORDERAB LES Final Result Performing Organization Address [facility] Co de Phone Number [facility] [address] [place] [phone] * C-reactive Protein (01/20/2025 2:36 PM EDT) C Reactive Protein 0.36 < or = 0.50 mg/dL [facility] 01/20/2025 2:36 PM EDT 01/20/2025 5:25 PM EDT Generic External Data Provider LAB BLOOD ORDERAB LES Final Result Performing Organization Address [facility] Co de Phone Number [facility] [address] [place] [phone] * Uric acid (01/20/2025 2:36 PM EDT) Uric Acid 2.4 2.4 - 5.7 mg/dL [facility] 01/20/2025 2:36 PM EDT 01/20/2025 5:25 PM EDT us Generic External Data Provider LAB BLOOD ORDERAB LES Final Result Performing Organization Address [facility] Co de Phone Number [facility] [address] [place] [phone] * TSH (01/20/2025 2:36 PM EDT) Pathologist [facility] Thyroid Stimulating Hormone 3.28 0.32 - 4.0 uIU/mL [facility] Comment:Note: A sustained TS H level above 2.5 uIU/mL may warrant further investigation. TSH 3rd Generation ([facility]) Blood Venous blood specimen / Unknown 01/20/2025 2:36 PM EDT 01/20/2025 5:25 PM EDT Lanny Vasquez MD LAB BLOOD ORDERAB LES Final Result Performing Organization Address [facility] Co de Phone Number [facility] [address] [place] [phone] * T4, Free (01/20/2025 2:36 PM EDT) [facility] Free T4 (Free Thyroxine) 0.97 0.71 - 1.85 ng/dL [facility] Blood Venous blood specimen / Unknown 01/20/2025 2:36 PM EDT 01/20/2025 5:25 PM EDT us Lanny Vasquez MD LAB BLOOD ORDERAB LES Final Result Performing Organization Address [facility] Co de Phone Number [facility] [address] [place] [address] [phone] * (ABNORMAL) Comprehensive Metabolic Panel (01/20/2025 2:36 PM EDT) [facility] Sodium 142 135 - 145 mmol/L [facility] Potassium 4.4 3.3 - 5.1 mmol/L [facility] Chloride 109(H) 96 - 108 mmol/L [facility] Carbon Dioxide 25 22 - 29 mmol/L [facility] Anion Gap 12 12 - 20 [facility] Urea Nitrogen (BUN) 20(H) 9 - 16 mg/dL [facility] Creatinine, Serum 1.17 0.5 - 1.4 mg/dL [facility] Estimated Glomerular Filt Rate 45 [facility] Comment:Chronic Kidney Disea se: Estimated GFR < 60 mL/min/1.75k5Zhkell Kidney Disease: Estimated GFR < 15 mL/min/1.73m2 Glucose 144(H) 60 - 115 mg/dL [facility] Calcium 9.4 8.4 - 10.2 mg/dL [facility] Bilirubin, Total 0.3 0.0 - 1.0 mg/dL [facility] Aspartate Amino Transferase 26 5 - 31 U/L [facility] Alanine Aminotransferase 21 0 - 31 U/L [facility] Total Protein 7.1 6.5 - 8.0 g/dL [facility] Albumin Level 4.5 3.5 - 5.0 g/dL [facility] Alkaline Phosphatase 115 39 - 117 U/L [facility] 01/20/2025 2:36 PM EDT 01/20/2025 5:25 PM EDT us Generic External Data Provider LAB BLOOD ORDERAB LES Final Result [facility] [address] [place] [phone] * XR Lumbar Spine 2-3 Views (01/19/2025 2:10 PM EDT) Anatomical Region Laterality Modality Spine, L-spine Radiographic Roula ging 01/19/2025 2:10 PM EDT Narrative 01/19/2025 2:33 PM EDT [address] [address] XRay Report Signed Patient: Mora Manrique MR#: [id number] 7 : 1950 Acct:[id number] Age/Sex: 74 / F ADM Date: 01/19/25 Loc: HO.XRAY Attending Dr: Lanny Vasquez MD Ordering Physician: Lanny Ewing MD Date of Service: 01/19/25 Procedure(s): XR lumbar spine 2-3V Accession Number(s): [id number] cc: Lanny Ewing MD EXAMINATION: XR LUMBOSACRAL [...] 01/19/25 1430 DD/ 1410 TD/TT: 01/19/25 1419 Lacer And Tier: Procedure Note Donotuseinterpreter, Image - 01/19/2025 [place] [address] XRay Report Signed Patient: Mora Manrique EMR#: [id number] 7 : 1950cct:[id number] Age/Sex: 74 / FADM Date: 01/19/25 Loc: YESSICA Attending Dr: Lanny Vasquez MD Ordering Physician: Lanny Ewing MD Date of Service: 01/19/25 Procedure(s): XR lumbar spine 2-3V Accession Number(s): [id number] cc: Lanny Ewing MD EXAMINATION: XR LUMBOSACRAL [...] 01/19/25 1430 DD/ 1410 TD/TT: 01/19/25 1419 Lacer And Tier: us Lanny Vasquez MD IMG XR PROCEDURES Final Result * (ABNORMAL) Albumin, Random Urine W/Creatinine (01/19/2025 1:57 PM EDT) Creatinine, Urine 63.00 mg/dL [facility] Microalbumin Urine 197.0 mg/L H [facility] Microalbum Creatinine Ratio Ur 312.6(H) <30 ug/mg cr [facility] Comment:Albumin/Creatinine R atio Reference Ranges: Normal: < 30 ug/mg creatinine Microalbuminuria: 30 - 300 ug/mg creatinineClinical Albuminuria: > 300 ug/mg creatinine Urine (Urine, Random) 01/19/2025 1:57 PM EDT 01/19/2025 2:40 PM EDT Lanny Vasquez MD LAB URINE ORDERAB LES Final Result [facility] [address] [place] [phone] * (ABNORMAL) Lipid Panel, Standard (11/18/2024 9:57 AM EDT) Triglycerides 149 <150 mg/dL [facility] Comment:Desirable Triglyceri de: less than 150 mg/dLBorderline High Triglyceride 150-199 mg/dLHigh Triglyceride: 200-499 mg/dLVery High Triglyceride: greater than or equal to 5OO mg/dL Cholesterol 121 <200 mg/dL [facility] Comment:Desirable Cholestero l: less than 200 mg/dLBorderline High Cholesterol: 200-239 mg/dLHigh Cholesterol: greater than 239 mg/dL LDL Cholesterol Calculated 59 <100 mg/dL [facility] Comment:Desirable LDL: less than 100 mg/dLNear Optimal/Above Optimal LDL: 110- 129 mg/dLBorderline High LDL: 130-159 mg/dLHigh LDL: 160-189 mg/dLVery High LDL: greater than or equal to 190 mg/dL HDL Cholesterol 33(L) >40 mg/dL [facility] Comment:Desirable HDL: great er than 40 mg/dL Note: This HDL assay may give artificially low results in patients with liver disease. Blood Venous blood specimen / Unknown 11/18/2024 9:57 AM EDT 11/18/2024 11:06 AM EDT us Lanny Vasquez MD LAB BLOOD ORDERAB LES Final Result [facility] [address] [place] [phone] * BI Mammogram Diagnostic Tomosynthesis Bilateral (06/28/2024 11:45 AM EST) Anatomical Region Laterality Modality Breast Bilateral Mammography 06/28/2024 11:4 5 AM EST Narrative 06/28/2024 2:02 PM EST [facility] [address] [place] [address] [place] [address] Mammography Report Signed Patient: Mora Manrique MR#: [id number] 7 : 1950 Acct:[id number] Age/Sex: 73 / F ADM Date: 06/28/24 Loc: HO.MAMMO Attending Dr: Lanny Vasquez MD Ordering Physician: Neal Peters MD Results: 3.12M Probably Benign Finding - 12 month F/U Suggested Date of Service: 06/28/24 Follow Up: 12 month diagnos tic follow up Procedure(s): MM tomosynthesis diagnostic BI Accession Number(s): [id number] cc: Neal Peters MD; Lanny Ewing MD [...] by Yuliya Khalil DO in OV> 06/28/24 8979 DD/ 1145 TD/TT: 06/28/24 1205 Lacer And Tier: Procedure Note Donotuseinterpreter, Image - 06/28/2024 [facility] [address] [place] [address] [place] [address] Mammography Report Signed Patient: Mora aMnrique EMR#: [id number] 7 : 1950cct:[id number] Age/Sex: 73 / FADM Date: 06/28/24 Loc: HO.MAMMO Attending Dr: Lanny Vasquez MD Ordering Physician: Neal Peters MDResults: 3.12M Probably Benign Finding - 12 month F/U Suggested Date of Service: 06/28/24Follow Up: 12 month diagnos tic follow up Procedure(s): MM tomosynthesis diagnostic BI Accession Number(s): [id number] cc: Neal Peters MD; Lanny Ewing MD [...] by: Yuliya Khalil DO 06/28/2024 01:59 PM [facility] Dictated By: Yuliya Khalil DO Signed By: <Electronically signed by Yuliya Khalil DO in OV> 06/28/24 1359 DD/ 1145 TD/TT: 06/28/24 1205 Lacer And Tier: [facility] External Provider IMG BI PROCEDURES Final Result * Hepatitis C Antibody with Reflex to HCV, RNA, Quantitative, Real-Time PCR (10/13/2023 10:30 AM EDT) Hepatitis C Antibody Nonreactive Nonreactive [facility] Comment:Antibodies to HCV no t detected; does not exclude early acuteHCV infection. Blood Venous blood specimen / Unknown 10/13/2023 10:30 AM EDT 10/13/2023 11:19 AM EDT Lanny Vasquez MD LAB BLOOD ORDERAB LES Final Result Performing Organization Address City/State/[facility] Co de Phone Number [facility] [address] [place] [address] [phone] * Hm Colonoscopy (09/17/2018 1:13 PM EDT) Historical Provider HEALTH MAINTENANCE Final Result from Last 3 Months or Most Recently Relevant to Health Maintenance Insurance [place] [address] [place] [id number] [facility] [address] [place] [address] [address] [place] [address] [address] [place] [address] Care Teams Research Professional Relationship Specialty Start Date End Date Lanny Ewing MD [address] [place] [phone] PCP - General Internal Medicine 03/03/23
--- OUTSIDE RECORDS SUMMARY | 2025-04-19 11:34 | XMS_ITS | Encounter Summary ---
Author Organization [facility] Address [address] [place] [address] Phone Care Team Providers Care Director Fundraising Name Role Phone Lanny Roach Primary Care Provid er Encounter Details Date Type Department Care Team (Late Contact Info) Description 03/29/2024 Documentation Only [facility] [address] [place] [address] Mae Olsen [address] [place], [place] [...] [facility] [address] [place] [address] Tiara Barrientos MD [address] [place] [address] [place] [address] documented as of this encounter Visit Diagnoses Not on filedocumented in this encounter Care Teams Director Fundraising Relationship Specialty Start Date End Date Lanny Roach [address] [place] [address] PCP - General 03/10/24 documented as of this encounter
--- OUTSIDE RECORDS SUMMARY | 2025-04-19 11:34 | XMS_ITS | Encounter Summary ---
Author Organization [employer] Address [address] [place] [address] 7 [place] [address] Care Team Providers Care Business Continuity Consultant Name Role Phone Adenike Souza Inocencia HISTORIC PRESERVATIONIST Primary Care Provider Lanny Whitaker MD Primary Care Pro vider Reason for Visit * Reason Comments Med Refill Encounter Details Date Type Department Care Team (Late st Contact Info) Description 12/06/2022 Refill [facility] MEDICINE [address] [place] [address] [phone] Vandana Elmore DO [address] [place], [place] [phone] Social History Tobacco Use Types Packs/Day Years [...] Description 06/23/2025 1:00 PM EST Office Visit [facility] MEDICINE [address] [place] [address] [phone] Lanny Ewing MD 230 [place] [address] 06/27/2025 11:00 AM EST Office Visit [facility] MED & PEDS [address] [place] [address] Dorene Dumas MD 505 [place], [place] [phone] documented as of this encounter Visit Diagnoses Not on filedocumented in this encounter Care Teams Business Continuity Consultant Relationship Specialty Start Date End Date Adenike Souza FNP PCP - General Family Medicine 01/15/22 03/02/23 Lanny Ewing MD 230 [place] [address] PCP - General Internal Medicine 03/03/23 documented as of this encounter
--- OUTSIDE RECORDS SUMMARY | 2025-04-19 11:34 | XMS_ITS | Encounter Summary ---
Author Organization [facility] Address [address] [place] [address] Phone Care Team Providers Care Outcomes Specialist Name Role Phone Lanny Roach Primary Care Provid er Encounter Details Date Type Department Care Team (Late Contact Info) Description 03/22/2024 Documentation Only [facility] [address] [place] [address] Mae Olsen [address] [place] [address] Social History Tobacco Use Types [...] [facility] [address] [place] [address] Tiaar Barrientos MD [address] [place] [address] [place] [address] documented as of this encounter Visit Diagnoses Not on filedocumented in this encounter Care Teams Outcomes Specialist Relationship Specialty Start Date End Date Lanny Roach 230 [place] [address] PCP - General 03/10/24 documented as of this encounter
--- OUTSIDE RECORDS SUMMARY | 2025-04-19 11:34 | XMS_ITS | Data Portability ---
Author Organization [facility], [facility] Address [address] [place] [address] Care Team Providers Care Space Controller Name Role Phone [facility] Referring Provider [phone] Unavailable Referring Provider Assessment Encounter Date Assessment Date Assessment LastModified by Organization Details LastModified Time 11/04/2021 11/04/2021 I have reviewed and agree with the assessment and plan as documented by the cargo service supervisor. I provided real-time medical direction for this encounter and was immediately available to provide additional phone-based assistance as needed. History as noted in EMR and by cargo service supervisor. I would add / emphasize: Pt with [...] Assessment and Plan as documented by the Transportation Project Manager. We discussed the diagnostic uncertainty of home visits and the risk associated with this. The patient given the opportunity to ask questions. [email or web address] Not available 07/16/2023 00:57:16 Plan of Treatment Reminders Order Date Submit Date Provider Last Modified By Organization Details Last Modified Time Details Appointments None recorded. Lab rapid SARS CoV 2 Ag, QL IA, respiratory specimen 2023 024 [email or web address] 0 [facility], [address] [place] [address], [phone] 17:07:00 rapid flu (A+B) 2023 024 [email or web address] 0 Main [facility], [address] [place], [phone] 4 17:06:58 Referral None recorded. Procedures None recorded. Surgeries None recorded. Imaging None recorded. Medication Orders Solu-Medrol (PF) 125 mg/2 mL solution for injection 2023 024 [email or web address] 0 [id number], [address] [place], [address], 4 17:06:58 albuterol sulfate 2.5 mg/3 mL (0.083 %) solution for nebulizatio n 2023 024 [email or web address] 0 [id number], [address] [place], [address], 4 17:06:58 ipratropium 0.5 mg-albutero l 3 mg (2.5 mg base)/3 mL nebulizatio n soln 2023 024 [email or web address] 0 [id number], [address] [place], [address], 4 17:06:58 azithromyci n 250 mg tablet 2023 024 [email or web address] 0 [id number], [address] [place], [address], 4 01:00:49 albuterol sulfate 2.5 mg/3 mL (0.083 %) solution for nebulizatio n 2021 022 [id number], [address] [place], [address], 2 20:21:27 Patient TargetsNo targets recorded. Patient InstructionsNo instructions recorded. Reason for Referral None Reported. Results Created Date Observation Date Name Description Value Unit Range Abnormal Flag Note LastModifiedBy Organization Detail LastModifiedTime 07/15/19 24 07/15/2023 rapid flu (A+B) Flu negati ve Not Available [facility] ed [address] [place] [address], [phone] 07/15/2023 17:05:34 07/15/19 24 07/15/2023 rapid SARS CoV 2 Ag, QL IA, respi rator y speci men rapid SARS CoV 2 Ag, QL IA, respiratory specimen negati ve Not Available [facility] ed [address] [place] [address], [phone] 07/15/2023 17:05:32 Result Notes None recorded. Medical [...] Not available Not available Not available 07/15/2023 [id number] RxNorm Not Available [employer] - production 4 03:41:56 4597 nickel environme nt rash Not available Not available 07/15/2023 95072 29 RxNorm Laura Knapp MD [address] [place] [address],[address], [place], [phone], [place] [employer] [facility] 4 17:04:27 Medications Name Sig Start Date [...] Available Not Available Vitals Date Recorded Body height Oxygen saturation Body temperature Body weight Respiratory rate Heart rate Systolic And Diastolic Provider Name and Address Organization Details Last Updated DateTime 4 165.1 cm 97 % 97.6 [degF] 64640.4 g 20 /min 84 /min 134/76 mm[Hg] Not Available [employer] - production 4 16:48:57 Date Recorded Body weight Respiratory rate Oxygen saturation Heart rate Body height Body temperature Systolic And Diastolic Provider Name and Address Organization Details Last Updated DateTime 2 38634.8 08 g 18 /min 96 % 70 /min 162.56 cm 98.2 [degF] 112/76 mm[Hg] Not Available [employer] - production 2 20:17:52 Social History None recorded. Functional Status None recorded. Mental Status None recorded. Family History Nothing Reported. Medical History No medical history recorded. Gynecological HistoryNo gynecological history recorded. Obstetrics History GPAL:G 0 P 0 0 0 0 Past Encounters Encounter ID Performer Location Encounter Start Date Encounter Closed Date Diagnosis/Indication Diagnosis SNOMED-CT Code Diagnosis ICD10 Code Diagnosis IMO Codes Diagnosis Note [id number] Joseph Veliz MD Main - [facility] [address] [place] [phone] 11/04/2021 20:17:49 01/28/2022 12:08:20 Wheezing 51883264 R06.2 Laura Knapp MD Main - [facility] [address] [place] [phone] 07/15/2023 16:48:54 07/16/2023 09:24:58 Acute exacerbation of chronic obstructive pulmonary disease 231300562 J44.1 Given DuoNeb and had increased aeration [...] room. She agreed and report called to [place] [facility]. The patient then declined ambulance. The [...] Recorded Advance Directives Directive None Recorded Payers Insurance Date Sequence Insurance Name Policy Number Policy Thompson Covered Member ID Thompson Member ID Guarantor Name 07/15/2023 1 [facility] - DOS PRIOR TO 2022 - DUAL ELIGIBLE (MEDICARE REPLACEMENT/ADV ANTAGE - HMO) Mora Manrique [id number] Mora Manrique 08/17/2023 1 [facility] - DOS ON OR AFTER 2022 - DUAL ELIGIBLE - SKILLED NURSING OPTIONS AND ONE CARE (MEDICARE REPLACEMENT/ADV ANTAGE - HMO) Mora Manrique [id number] Mora Manrique Notes Date Note Type Note [...] .................. .................. .................. .................. .................. .................. ............... Transportation Project Manager Note: Sent to a call for a [...] doesn't have any albuterol solution for nebulizer. [facility] orders rapid COVID test, nebulized treatment, and will send script to pt's pharmacy for albuterol solution for nebulizer. COVID test: negative; Pt improves after nebulized treatment. Pt advised to use nebulizer as needed q4hrs otherwise seek medical attention. Red flags discussed. Pt has no further questions. .................. .................. .................. .................. .................. .................. .................. ............... Disposition: Fulfilled Joseph Veliz MD [address] [place] [address],[address], [place], [phone], [employer] [facility] 12/23/2021 11:47:23 07/15/2023 text/html ROS as noted in the HPI HPI: HX: CKD,RA. Patient with three week history of increased shortness of breath and asthma symptoms. Has SOB at rest no chest pain. Using nebulizer in the home. Seeking Prednisone. .................. .................. .................. .................. .................. .................. .................. ............... CRC Nurse Triage Notes (Malorie Strickland): Comments: CRC RN DID NOT NEED FURTHER INFO .................. .................. .................. .................. .................. .................. .................. ............... Transportation Project Manager Note From Ronny Camacho: Dispatched to the [...] but was still having some trouble breathing. [facility] consulted several times throughout visit. Pt was advised that she should seek longer treatment and evaluation in the ED. Pt agreed to go to ED as long as family could take her. Family agreed to take Pt to the ED. ALL times are approx. .................. .................. .................. .................. .................. .................. .................. ............... Disposition: Fulfilled Laura Knapp MD [address] [place] [address],[address] [place] [address], [place], [phone], [employer] [facility] 07/16/2023 01:10:07 OBGyn Episode No OBEpisode recorded.
--- OUTSIDE RECORDS SUMMARY | 2025-04-19 11:34 | XMS_ITS | Clinical Summary ---
Author Organization [facility] Address [address] [place] [address] Phone Care Team Providers Care Aerial Photogrammetrist Name Role Phone Lanny Ewing MD Primary [...] 02/22/2024 Invasive ductal carcinoma of right breast ([facility] V24, [facility] V28) 02/22/2024 Microscopic hematuria 02/22/2024 Moderate persistent asthma with (acute) exacerba tion 02/22/2024 Obesity 02/22/2024 Osteoarthritis of elbow 02/22/2024 Osteopenia 02/22/2024 Proteinuria 02/22/2024 Recurrent major depressive episodes, mild ([facility] V24) 02/22/2024 Seropositive rheumatoid arth ritis ([facility] V24, [facility] V28) 02/22/2024 Stage 3 chronic kidney disease ([facility] V24, [facility] V28) 02/22/2024 Type 2 diabetes mellitus wit h stage 3 chronic kidney disease, without long-term current use of insulin ([facility] V24, [facility] V28) 02/22/2024 Social History Tobacco Use Types [...] Breast Cancer Screening 1952 Colorectal Cancer Screening: Colonoscopy 1952 Diabetes: Annual GFR (Glomerular Filtration Rate) 1952 Diabetes: Annual Foot Exam 1962 Diabetes: Annual Retina Eye Exam 1962 Falls Risk Assessment 01/20/2024 Medicare Annual Wellness [...] Insurance MEDICARE MEDICAID - [place] Care Teams Aerial Photogrammetrist Relationship Specialty Start Date End Date Lanny Ewing MD [address] [phone] PCP - General 10/23/23
--- OUTSIDE RECORDS SUMMARY | 2025-04-19 11:34 | XMS_ITS | Encounter Summary ---
Author Organization [employer] Address [address] [place] [address] 7 [place] [address] Care Team Providers Care Election Clerk Name Role Phone Adenike Souza CLIENT ANALYST Primary Care Provider Lanny Whitaker MD Primary Care Pro vider Reason for Visit * Reason Comments Med Refill Encounter Details Date Type Department Care Team (Late st Contact Info) Description 01/02/2023 Refill [facility] MEDICINE [address] [place] [address] [phone] Adenike Souza FNP Social History Tobacco Use [...] Description 06/23/2025 1:00 PM EST Office Visit [facility] MEDICINE [address] [place], [place] [phone] Lanny Ewing MD [address] [place], [place] [phone] 06/27/2025 11:00 AM EST Office Visit [facility] CH[facility] MED & PEDS [address] [place] [address] Dorene Dumas MD [address] [place], [place] [phone] documented as of this encounter Visit Diagnoses Not on filedocumented in this encounter Care Teams Election Clerk Relationship Specialty Start Date End Date Adenike Souza FNP PCP - General Family Medicine 01/15/22 03/02/23 Lanny Ewing MD [address] [place] [address] PCP - General Internal Medicine 03/03/23 documented as of this encounter
--- OUTSIDE RECORDS SUMMARY | 2025-04-19 11:34 | XMS_ITS | Clinical Summary ---
Author Organization [facility], Address [address] [place] [address] [place] [address] Phone Care Team Providers Care Paper Cup Handle Machine Operator Name Role Phone Lanny Roach [...] Hyperkalemia History of acute kidney injury Immunizations Immunization Administration Dates Next Due Hepatitis [...] Tobacco: Former Cigarettes 0 Q uit: 05/25/2014 Tobacco Cessation:Counseling Given: Not [...] Visit [facility], [address] [place] [address] Tiara Barrientos MD [address] [place] [address] Health Maintenance Due Date Last Done Comments [...] exists Insurance Medicare Medicaid [place] Care Teams Paper Cup Handle Machine Operator Relationship Specialty Start Date End Date Lanny Roach [address] [place] [address] PCP - General 03/10/24
--- OUTSIDE RECORDS SUMMARY | 2025-04-19 11:34 | XMS_ITS | Encounter Summary ---
Author Organization [facility] Address [address] [place] [address] Phone Care Team Providers Care Senior Operator Name Role Phone Lanny Roach Primary Care Provid er Encounter Details Date Type Department Care Team (Late st Contact Info) Description 09/03/2023 Documentation Only [facility] [address] [place] [address] Mae Olsen [address] [place] [address] Social History Tobacco Use Types [...] [facility] [address] [place] [address] Tiara Barrientos MD [address] [place] [address] [place] [address] documented as of this encounter Visit Diagnoses Not on filedocumented in this encounter Care Teams Senior Operator Relationship Specialty Start Date End Date Lanny Roach [address] [place] [address] PCP - General 03/10/24 documented as of this encounter
--- OUTSIDE RECORDS SUMMARY | 2025-04-19 11:34 | XMS_ITS | Encounter Summary ---
Author Organization [employer] Address [address] [place] [address] 7 [place] [address] Care Team Providers Care Field Hockey Coach Name Role Phone Lanny Ewing MD Primary Care Pro vider Reason for Visit * Reason Onset Date Comments Hospital Follow-up 07/20/2023 Encounter Details Date Type Department Care Team ([facility] st Contact Info) Description 07/20/2023 Telephone [facility] MEDICINE [address] [place], [place] [phone] Lanny Ewing MD [address] [place], [place] [phone] Hospital Follow-up Social History Tobacco Use Types [...] from pt requesting a HDF appt. Hospital: [facility] Date of admission: 06/14/2023 Discharge date: 06/17/2023 Diagnosed: Trouble Breathing/Asthma documented in this encounter Plan of Treatment Upcoming Encounters Date Type Department Care Team (Late st Contact Info) Description 06/23/2025 1:00 PM EST Office Visit [facility] MEDICINE [address] [place] [address] Lanny Ewing MD [address] [place] [address] 06/27/2025 11:00 AM EST Office Visit [facility] CHC MED & PEDS [address] [place] [address] Dorene Dumas MD 505 [place] [address] documented as of this encounter Visit Diagnoses Not on filedocumented in this encounter Care Teams Field Hockey Coach Relationship Specialty Start Date End Date Lanny Ewing MD [address] [place] [address] PCP - General Internal Medicine 03/03/23 documented as of this encounter
--- OUTSIDE RECORDS SUMMARY | 2025-04-19 11:34 | XMS_ITS | Encounter Summary ---
Author Organization [employer] Address [address] [place] [address] 7t [place] [address] Care Team Providers Care Trust Vault Clerk Name Role Phone Lanny Ewing MD Primary Care Pro vider Reason for Visit * Reason Comments Med Refill Encounter Details Date Type Department Care Team ([facility] st Contact Info) Description 12/30/2024 Refill [facility] MEDICINE [address] [place] [address] Lanny Ewing MD [address] [place] [address] Social History Tobacco Use Types Packs/Day Years [...] Description 06/23/2025 1:00 PM EST Office Visit [facility] MEDICINE [address] [place] [address] Lanny Ewing MD [address] [place] [address] 06/27/2025 11:00 AM EST Office Visit [facility] CH[facility] MED & PEDS [address] [place] [address] Dorene Dumas MD 505 [place] [address] documented as of this encounter Goals Goal [...] documented as of this encounter Care Teams Trust Vault Clerk Relationship Specialty Start Date End Date Lanny Ewing MD [address] [place] [address] PCP - General Internal Medicine 03/03/23 documented as of this encounter
--- OUTSIDE RECORDS SUMMARY | 2025-04-19 11:34 | XMS_ITS | Encounter Summary ---
Author Organization [facility] Address [address] [place] [address] Phone Care Team Providers Care Field Technical Specialist Name Role Phone Lanny Roach Primary Care Provid er Encounter Details Date Type Department Care Team (Late Contact Info) Description 03/29/2024 Documentation Only [facility] [address] [place] [address] Mae Olsen [address] [place] [address] Social History Tobacco Use Types [...] [facility] [address] [place] [address] Tiara Barrientos MD [address] [place] [address] [place] [address] documented as of this encounter Visit Diagnoses Not on filedocumented in this encounter Care Teams Field Technical Specialist Relationship Specialty Start Date End Date Lanny Roach 230 [place] [address] PCP - General 03/10/24 documented as of this encounter
--- OUTSIDE RECORDS SUMMARY | 2025-04-19 11:34 | XMS_ITS | Encounter Summary ---
Author Organization [facility] Address [address] [place] [address] Phone Care Team Providers Care Supervisor Inspecting Name Role Phone Lanny Roach Primary Care Provid er Encounter Details Date Type Department Care Team (Late st Contact Info) Description 09/03/2023 Documentation Only [facility] [address] [place] [address] Mae Olsen [address] [place] [address] Social History Tobacco Use Types [...] Visit [facility] [address] [place] [address] Tiara Barrientos MD [address] [place] [address] [place] [address] documented as of this encounter Visit Diagnoses Not on filedocumented in this encounter Care Teams Supervisor Inspecting Relationship Specialty Start Date End Date Lanny Roach [address] [place] [address] PCP - General 03/10/24 documented as of this encounter
--- OUTSIDE RECORDS SUMMARY | 2025-04-19 11:34 | XMS_ITS | Encounter Summary ---
Author Organization [facility] Address [address] [place] [address] Phone Care Team Providers Care Aromatherapist Name Role Phone Lanny Roach Primary Care Provid er Encounter Details Date Type Department Care Team (Late Contact Info) Description 01/05/2025 Documentation Only [facility] [address] [place] [address] Mae Olsen [address] [place] [address] Social History Tobacco Use Types [...] [facility] [address] [place] [address] Tiara Barrientos MD [address] [place] [address] [place] [address] documented as of this encounter Visit Diagnoses Not on filedocumented in this encounter Care Teams Aromatherapist Relationship Specialty Start Date End Date Lanny Roach [address] [place] [address] PCP - General 03/10/24 documented as of this encounter
--- OUTSIDE RECORDS SUMMARY | 2025-04-19 11:34 | XMS_ITS | Encounter Summary ---
Author Organization [employer] Address [address] [place] [address] 7t [place] [address] Care Team Providers Care Research Professional Name Role Phone Lanny Ewing MD Primary Care Pro vider Reason for Visit * Reason Comments Med Refill Encounter Details Date Type Department Care Team ([facility] st Contact Info) Description 09/12/[address] [facility] MED & PEDS [address] [place], [place] [phone] Lanny Eiwng MD 230 [place] [address] Social History Tobacco Use Types Packs/Day Years [...] Description 06/23/2025 1:00 PM EST Office Visit [facility] MEDICINE [address] [place] [address] Lanny Ewing MD [address] [place] [address] 06/27/2025 11:00 AM EST Office Visit [facility] MED & PEDS [address] [place] [address] Dorene Dumas MD 505 [place] [address] documented as of this encounter Goals Goal [...] documented as of this encounter Care Teams Research Professional Relationship Specialty Start Date End Date Lanny Ewing MD [address] [place] [address] PCP - General Internal Medicine 03/03/23 documented as of this encounter
--- OUTSIDE RECORDS SUMMARY | 2025-04-19 11:34 | XMS_ITS | Encounter Summary ---
Author Organization [employer] Address [address] [place] [address] 7t [place] [address] Care Team Providers Care Take Away Worker Name Role Phone Lanny Ewing MD Primary Care Pro vider Reason for Visit * Reason Comments Med Refill Encounter Details Date Type Department Care Team ([facility] st Contact Info) Description 07/19/2023 Refill [facility] MEDICINE [address] [place] [address] Lanny Ewing MD [address] [place], [place] [phone] Social History Tobacco Use Types Packs/Day Years [...] Description 06/23/2025 1:00 PM EST Office Visit [facility] MEDICINE [address] [place] [address] Lanny Ewing MD [address] [place] [address] 06/27/2025 11:00 AM EST Office Visit [facility] MED & PEDS [address] [place] [address] Dorene Dumas MD 505 [place], [place] [phone] documented as of this encounter Visit Diagnoses Not on filedocumented in this encounter Care Teams Take Away Worker Relationship Specialty Start Date End Date Lanny Ewing MD [address] [place] [address] PCP - General Internal Medicine 03/03/23 documented as of this encounter
--- OUTSIDE RECORDS SUMMARY | 2025-04-19 11:34 | XMS_ITS | Encounter Summary ---
Author Organization [facility] Address [address] [facility] [address] [place] [address] Phone Care Team Providers Care Livestock Farmworker Name Role Phone Lanny Roach Primary Care Provid er Encounter Details Date Type Department Care Team (Late st Contact Info) Description 12/31/2021 Documentation Only [facility] [address] [place] [address] Gabino Donnelly MD [address] [place] [address] Social History Tobacco Use Types [...] [facility] [address] [place] [address] Tiara Barrientos MD [address] [place] [address] documented as of this encounter Visit Diagnoses Not on filedocumented in this encounter Care Teams Livestock Farmworker Relationship Specialty Start Date End Date Lanny Roach [address] [place] [id number] PCP - General 03/10/24 documented as of this encounter
--- OUTSIDE RECORDS SUMMARY | 2025-04-19 11:34 | XMS_ITS | Encounter Summary ---
Author Organization [employer] Address [address] [place] [address] [address] [place] [address] Care Team Providers Care Flame Cutter Name Role Phone Lanny Ewing MD Primary Care Pro vider Reason for Referral * Consultation (Routine) - Closed Specialty Diagnoses / Procedures Referred By Contmaggy dickson Referred To Contact Pharmacy Diagnoses Essential hypertension Gertrudis Holder MD [address] [place] [address] Phone: tel: fax: Referral ID Status Reason Start Date Expiration Date V isits Requested Visits Authorized [id number] Closed Continuity of Care 09/22/2024 09/22/2025 6 6 Encounter Details Date Type Department Care Team ([facility] st Contact Info) Description 09/20/2024 Orders Only [facility] [address] [place], [place] [phone] Gertrudis Holder MD [address], [place] [phone] Essential hypertension (Primary Dx) Social History Tobacco [...] Upcoming Encounters Date Type Department Care Team ([facility] st Contact Info) Description 06/23/2025 1:00 PM EST Office Visit [facility] [address] [place] [address] Lanny Ewing MD [address] [place] [address] 06/27/2025 11:00 AM EST Office Visit [facility] [address] [place] [address] Dorene Dumas MD [address] [place] [address] Scheduled Referrals Name Type Priority Associated Diagnoses [...] documented as of this encounter Care Teams Flame Cutter Relationship Specialty Start Date End Date Lanny Ewing MD [address] [place] [address] PCP - General Internal Medicine 03/03/23 documented as of this encounter
== END 2025-04-19 10:19 | disposition home or self-care (01) ==
LOC: HO.HCS 09:55
PROVIDERS: PCP Student in an Organized Health Care Education/Training Program; Visit Provider Internal Medicine
DX: I25.10 Atherosclerotic heart disease of native coronary artery without angina pectoris (principal)
CPT/HCPCS: 93010; 99203

== ENCOUNTER → 2025-04-19 09:55 | Outpatient (BNVA) | payer MEDICARE, SELFPAY | PROVIDERS: PCP Student in an Organized Health Care Education/Training Program; Visit Provider Internal Medicine | DX: I25.10 Atherosclerotic heart disease of native coronary artery without angina pectoris (principal); Z87.891 Personal history of nicotine dependence; I10 Essential (primary) hypertension; E78.5 Hyperlipidemia, unspecified | CPT/HCPCS: 93005; 99202 ==

== ENCOUNTER 2025-04-25 11:00 | Outpatient (AMB) | payer MEDICARE, MEDICAID, SELFPAY ==
[2025-04-25 11:06] VITALS: BP 107/54; PULSE 67; BMI 32.8
--- NOTE | 2025-04-25 11:06 | A.OFFVIS_ITS ---
Vital Signs 04/25/25 11:06 Height 5 ft 5 in Weight 197 lb BMI 32.8 BP 107/54 L Blood Pressure Location Lt brachial Position Sitting Pulse 67 Intake Visit Reasons: 6m Intake Note: Mora returns in 6 months follow up of GERD and constipation. CC: Patient states that she has been doing well. Denies any new GI symptoms or concerns. 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: No Accompanied by: Self / Same As Patient Allergies latex (LATEX) Allergy (Intermediate, Verified 04/25/25 11:12) BLISTERS abatacept (From Orencia) Allergy (Unknown, Verified 04/25/25 11:12) Itching adalimumab (From Humira) Allergy (Verified 04/25/25 11:12) dizziness aspirin Adverse Reaction (Intermediate, Verified 04/25/25 11:12) abdominal pain HPI HPI 6m: Details: Assessment & Plan (1) GERD (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 reflux disease): Code(s): K21.9 - Gastro-esophageal reflux disease without esophagitis Category: Medical (2) Constipation due to slow transit: Code(s): K59.01 - Slow transit constipation Category: Medical Plan She continues to do well on her bisacodyl and Dexilant. Return office visit in 6 months Medications: New bisacodyl 10 mg (2 x 5 mg) PO BEDTIME 180 tabs 1RF 90 days Refilled dexlansoprazole 60 mg PO QAM 90 caps 1RF TODAY'S VISIT ON LICENSE OF [facility] Medical History History of right breast cancer (~2003) CKD (chronic kidney disease), stage III Hypoxemia Pneumonia Acute exacerbation of chronic obstructive pulmonary disease (COPD) SUNNI (acute kidney injury) Abnormal mammogram of right breast Type 2 diabetes mellitus Osteopenia Personal history of nicotine dependence Back pain Chronic lung disease Acute and chronic respiratory failure with hypoxia History of Helicobacter pylori infection Osteoarthritis of both feet Lymphedema COVID-19 vaccine administered Hx of cardiac murmur Depression Anemia Hx of gout Elevated cholesterol HTN (hypertension) COPD (chronic obstructive pulmonary disease) GERD (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 reflux disease) 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 Seropositive rheumatoid arthritis Asthma Surgical History (Updated 04/25/25 @ 11:37 by WILLI Ricardo) Hx of hand surgery H/O cystoscopy Hx of thumb surgery H/O colonoscopy H/O local excision of skin lesion History of bilateral carpal tunnel release S/P lumpectomy, right breast History of esophagogastroduodenoscopy (EGD) Family History Father Throat cancer Mother Asthma Osteoarthritis Sister Breast cancer Social History Household Members: None Housing: House Do you presently have visiting nurse or other home services: No Alcohol intake: never Patient Tobacco Use Status: Former Tobacco user Tobacco use type: Cigarette Years Smoked: (onset 17yo, 1/2ppd x 45yrs, 22pyh - quit 2012) e-Cigarette/Vaping Use: Never Used service: No Current occupational status: retired 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 Female Reproductive History Menstrual Age of Menarche: 14 Review of Systems Const Denies fatigue, Denies fever(s), Denies night sweats, Denies poor appetite and Denies weight loss Eyes Details: glasses Reports requires corrective lenses ENT Reports Normal hearing present, Denies dental pain, Denies dysphagia, Denies hearing loss, Denies mouth pain, Denies odynophagia, Denies throat swelling, Denies tongue swelling and Reports other (Dentition adequate) Card Reports no additional complaints Resp Reports no additional complaints GI Details: Denies abdominal pain, Denies melena, Denies bloating, Denies hematochezia, Reports constipation, Denies GI cramping, Denies dysphagia, Denies excessive flatus, Denies early satiety, Reports heartburn, Denies diarrhea, Denies nausea, Denies odynophagia, Denies vomiting and Denies hematemesis Skin/Breast Denies pruritus, Denies lesions, Denies rash and Denies jaundice Neuro Reports Normal hearing present and Denies Abnormal speech present Endo Denies fatigue Aller/Immun Denies throat swelling and Denies tongue swelling Physical Exam Vital Signs: Last Vital Signs Pulse 67 04/25/25 11:06 BP 107/54 L 04/25/25 11:06 BMI result Body Mass Index 32.8 Const General: cooperative, no acute distress, well developed and well groomed Nutritional Appearance: well nourished and obese Orientation/consciousness: oriented to person, oriented to place and oriented to time Limitations: No language barrier HEENT Head: Yes normocephalic and Yes atraumatic Eyes General: appearance normal, both eyes and all related structures Pupils: Equal, round and reactive pupils present Neck Neck: Yes normal visual inspection and Yes no lymphadenopathy Thyroid: Thyroid normal Resp Effort & Inspection: normal respiratory effort and able to speak in complete sentences Auscultation: clear to auscultation bilaterally Cardio Rate: regular rate Rhythm: regular rhythm Heart sounds: Normal, physiologic split S2 sound present Peripheral pulses: radial pulses present and posterior tibial pulses present GI Inspection: No distended, No Abdominal panniculus present and Yes obesity Palpation (GI): Soft to palpation, nontender, no guarding, not rigid and No he patosplenomegaly present Percussion: Yes normal to percussion Auscultation: normal bowel sounds Rectal Exam - Female: deferred Skin General skin exam: no rashes or lesions noted, turgor normal, skin not dry, no jaundice, No spider nevi and no striae Rashes: no rashes Nails: normal Neuro General: oriented to person, oriented to place and oriented to time Cranial nerves: Yes Equal, round and reactive pupils present and Yes Normal hearing present Speech: No Abnormal speech present Extrem General: Yes normal to inspection, No clubbing, No cyanosis and No edema Psych Appearance: grossly normal and well kempt Mental Status: mental status grossly normal Speech and movement: Normal speech and movement present Affect: normal affect Attitude: cooperative Thought process: Normal thought process present and not confabulating Thought content: Normal thought content present Insight: Good insight present (Psych) Judgement: Good judgement present (Psych) Assessment & Plan Assessment & Plan (1) Constipation due to slow transit: Code(s): K59.01 - Slow transit constipation Category: Medical (2) GERD (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 reflux disease): Code(s): K21.9 - Gastro-esophageal reflux disease without esophagitis Category: Medical Plan She continues to do well on her bisacodyl and Dexilant. Subjective Patient presents for routine follow-up and medication refills. Reports doing well on bisacodyl and Dexilant without issues and denies any new health problems. Colonoscopy completed [place] [address] Ceja; advised at that time to repeat in 10 years. Objective Assessment & Plan Medication management: Chronic therapy tolerated well; patient reports stability without new concerns. - Renew bisacodyl. - Renew Dexilant. - Follow up annually or sooner if issues arise. Colorectal cancer screening: Surveillance plan reviewed. - Last colonoscopy 2018; next due in 2028 per prior recommendation. - Patient may complete future colonoscopy with prior specialist or through our office, per preference. - Will continue to verify interval at routine visits. Medications: Refilled dexlansoprazole 60 mg PO QAM 90 caps 1RF bisacodyl 10 mg (2 x 5 mg) PO BEDTIME 180 tabs 1RF Coding Level of Care Code Est Pt Level 3 (54636) Diagnoses Constipation due to slow transit K59.01 GERD (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 reflux disease) K21.9
== END 2025-04-25 11:40 | disposition home or self-care (01) ==
LOC: HO.HGI 11:00
PROVIDERS: PCP Student in an Organized Health Care Education/Training Program; Visit Provider Nurse Practitioner
DX: K59.01 Slow transit constipation (principal); K21.9 Gastro-esophageal reflux disease without esophagitis
CPT/HCPCS: 99213

== ENCOUNTER → 2025-04-25 11:00 | Outpatient (BNVA) | payer MEDICARE, SELFPAY | PROVIDERS: PCP Student in an Organized Health Care Education/Training Program; Visit Provider Nurse Practitioner | DX: K21.9 Gastro-esophageal reflux disease without esophagitis (principal); K59.01 Slow transit constipation; Z85.3 Personal history of malignant neoplasm of breast; Z87.891 Personal history of nicotine dependence | CPT/HCPCS: 99212 ==